=== PATIENT | female | born 1935 | race Caucasian/White ===

== ENCOUNTER 2016-09-10 01:08 | Inpatient (IN) | payer MEDICARE, BC ==
[2016-09-10] MEDS ORDERED: LORazepam 2 MG/ML SYRINGE IV STA (01:57)
[2016-09-10] MEDS ORDERED: IPRATROPIUM 0.5 MG/2.5 ML NEBU INHALATION STA (01:57)
[2016-09-10] MEDS ORDERED: methylPREDNISolone SOD SUCCI 125 MG/2 ML VIAL IV STA (01:57)
--- NOTE | 2016-09-10 02:01 | ED ---
General Adult HPI - General Chief complaint: Shortness of Breath Stated complaint: ISAAC Time Seen by Provider: 09/10/16 01:15 Source: patient, RN notes reviewed, old records reviewed Mode of arrival: wheelchair Limitations: no limitations - History of Present Illness Initial comments: This is an 81-year-old female here for evaluation. This patient is for evaluation of shows a red, severe shortness of breath signs I getting progressively worse, no significant chest pain and symptoms are more of sudden onset, worse with activity. Patient does have severe insignificant medical history relating the heart as well as overall medical comorbidities. Patient did have transfusion today earlier, no recent fevers or travel history no sick contacts no chest pain no cough or congestion - Related Data Home Medications Medication Instructions Recorded Confirmed Levothyroxine Sodium [Synthroid] 50 mcg PO DAILY 09/30/15 09/10/16 Warfarin Sodium [Coumadin] 5 mg PO DAILY 09/30/15 09/10/16 amLODIPine BESYLATE [Amlodipine 5 mg PO DAILY 09/30/15 09/10/16 Besylate] Eye Drops 1 drop BOTH EYES DIRECTED PRN 07/20/16 09/10/16 Furosemide [Lasix] 20 mg PO DAILY 07/20/16 09/10/16 Isosorbide Mononitrate ER [Imdur] 60 mg PO DAILY 07/20/16 09/10/16 Losartan [Cozaar] 50 mg PO DAILY 07/20/16 09/10/16 Potassium Chloride [Klor-Con 10] 10 meq PO DAILY 07/20/16 09/10/16 Lenalidomide [Revlimid] 5 mg PO HS 08/28/16 09/10/16 Allergies Allergy/AdvReac Type Severity Reaction Status Date / Time black pepper Allergy Severe THROAT Verified 09/10/16 01:17 Swelling peanut Allergy Severe THROAT Verified 09/10/16 01:17 Swelling atropine [From ] Allergy Unknown Verified 09/10/16 01:17 Egg Derived Allergy Unknown Verified 09/10/16 01:17 hyoscyamine [From ] Allergy Unknown Verified 09/10/16 01:17 Iodinated Contrast Media - Allergy Swelling Verified 09/10/16 01:17 Oral and [Iodinated Contrast Media - IV Dye] phenobarbital [From ] Allergy Unknown Verified 09/10/16 01:17 scopolamine [From ] Allergy Unknown Verified 09/10/16 01:17 venom-honey bee Allergy Unknown Verified 09/10/16 01:17 [bee venom (honey bee)] aspirin AdvReac Unknown Verified 09/10/16 01:17 [From [place]von Compound-65] belladonna alkaloids AdvReac Unknown Verified 09/10/16 01:17 caffeine AdvReac Unknown Verified 09/10/16 01:17 [From [place] Compound-65] propoxyphene HCl AdvReac Unknown Verified 09/10/16 01:17 [From [place] Compound-65] simvastatin [From Zocor] AdvReac WEAKNESS Verified 09/10/16 01:17 Sulfa (Sulfonamide AdvReac Rash/Hives Verified 09/10/16 01:17 Antibiotics) black pepper Allergy Swelling Uncoded 09/10/16 01:17 BUTTER Allergy Rash/Hives Uncoded 09/10/16 01:17 CHOCOLATE Allergy Itching Uncoded 09/10/16 01:17 SMELT Allergy Itching Uncoded 09/10/16 01:17 Review of Systems ROS Statement: Those systems with pertinent positive or pertinent negative responses have been documented in the HPI. ROS Other: All systems not noted in ROS Statement are negative. Past Medical History Past Medical History: Blood Disorder, Coronary Artery Disease (CAD), Chest Pain / Angina, Deep Vein Thrombosis (DVT), GI Bleed, Hyperlipidemia, Hypertension, Myocardial Infarction (IN), Thyroid Disorder, Vascular Disorder Additional Past Medical History / Comment(s): 3 HEART BLOCKAGES/LEAKY CARDIAC VALVE/HIATAL HERNIA/CHRONIC THROMBOPHLEBITIS/ARTHRITIS. 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 LAP/LENS IMPLANTS BILAT/[place] FILTER Past Anesthesia/Blood Transfusion Reactions: No Reported Reaction Past Psychological History: No Psychological Hx Reported Smoking Status: Never smoker Past Alcohol Use History: None Reported Past Drug Use History: None Reported - Past Family History Father Family Medical History: Coronary Artery Disease (CAD), Myocardial Infarction ([place] ) Mother Family Medical History: COPD, Coronary Artery Disease (CAD), Deep Vein Thrombosis (DVT) Brother(s) Family Medical History: Coronary Artery Disease (CAD), Myocardial Infarction (IN ) Sister(s) Family Medical History: Cancer General Exam Limitations: no limitations General appearance: alert, in no apparent distress, anxious, in distress, obese Head exam: Present: atraumatic, normocephalic, normal inspection Eye exam: Present: normal appearance, PERRL, EOMI. Absent: scleral icterus, conjunctival injection, periorbital swelling ENT exam: Present: normal exam, mucous membranes moist Neck exam: Present: normal inspection. Absent: tenderness, meningismus, lymphadenopathy Respiratory exam: Present: normal lung sounds bilaterally, wheezes, rales, decreased breath sounds, prolonged expiratory. Absent: respiratory distress, rhonchi, stridor Cardiovascular Exam: Present: regular rate, normal rhythm, normal heart sounds. Absent: systolic murmur, diastolic murmur, rubs, gallop, clicks GI/Abdominal exam: Present: soft, normal bowel sounds. Absent: distended, tenderness, guarding, rebound, rigid Extremities exam: Present: normal inspection, full ROM, normal capillary refill. Absent: tenderness, pedal edema, joint swelling, calf tenderness Back exam: Present: normal inspection Neurological exam: Present: alert, oriented X3, CN II-XII intact Psychiatric exam: Present: normal affect, normal mood Skin exam: Present: warm, dry, intact, normal color. Absent: rash Course Vital Signs 09/10/16 09/10/16 09/10/16 01:13 01:30 01:47 Temperature 97.9 F Pulse Rate 45 L 85 Respiratory 20 24 24 Rate Blood Pressure 199/109 129/66 O2 Sat by Pulse 94 L 96 Oximetry 09/10/16 09/10/16 02:09 02:30 Temperature Pulse Rate 90 95 Respiratory Rate Blood Pressure O2 Sat by Pulse Oximetry - Reevaluation(s) Reevaluation #1: 09/10/16 03:38 Patient not in severe rest for distress, no need for noninvasive ventilation at this time, mildly improved with breathing treatment EKG Findings - EKG Comments: EKG Findings:: EKG shows sinus rhythm rate of 90, FL 170, QRS 176, QTC 516 Medical Decision Making - Medical Decision Making 81 female year for evaluation of shortness of breath difficulty in breathing no chest pain. Patient has no fevers. Patient's found to be in pulmonary edema likely due to fluid overload versus transfusion reaction. Patient again denies any chest pain no fevers no cough or congestion, will be admitted for evaluation of breathing and cardiopulmonary status - Lab Data Result diagrams: 09/10/16 01:25 09/10/16 01:25 Lab Results 09/10/16 09/10/16 09/10/16 Range/Units 01:25 01:25 01:25 WBC 3.1 L (3.8-10.6) k/uL RBC 3.11 L (3.80-5.40) m/uL Hgb 10.1 L (11.4-16.0) gm/dL Hct 30.4 L (34.0-46.0) % MCV 97.6 D (80.0-100.0) fL MCH 32.5 (25.0-35.0) pg MCHC 33.2 (31.0-37.0) g/dL RDW 20.3 H (11.5-15.5) % Plt Count 87 L D (150-450) k/uL Neutrophils % (Manual) 45.0 % Band Neutrophils % 3.0 % Lymphocytes % (Manual) 44.0 % Monocytes % (Manual) 5.0 % Eosinophils % (Manual) 3.0 % Neutrophils # (Manual) 1.5 (1.3-7.7) k/uL Lymphocytes # (Manual) 1.4 (1.0-4.8) k/uL Monocytes # (Manual) 0.2 (0-1.0) k/uL Eosinophils # (Manual) 0.1 (0-0.7) k/uL Nucleated RBCs 0 (0-0) /100 WBC Manual Slide Review Performed Polychromasia Present Hypochromasia Slight Poikilocytosis Slight Poikilocytosis (manual Present Anisocytosis Moderate Macrocytosis Moderate PT (9.0-12.0) sec INR (<1.1) APTT (22.0-30.0) sec Sodium 139 (137-145) mmol/L Potassium 4.0 (3.5-5.1) mmol/L Chloride 103 (98-107) mmol/L Carbon Dioxide 24 (22-30) mmol/L Anion Gap 12 mmol/L BUN 21 H (7-17) mg/dL Creatinine 0.90 (0.52-1.04) mg/dL Est GFR (MDRD) Af Amer >60 (>60 ml/min/1.73 sqM) Est GFR (MDRD) Non-Af >60 (>60 ml/min/1.73 sqM) Glucose 127 H (74-99) mg/dL Calcium 10.0 (8.4-10.2) mg/dL Magnesium 2.2 (1.6-2.3) mg/dL Total Bilirubin 1.1 (0.2-1.3) mg/dL AST 18 (14-36) U/L ALT 32 (9-52) U/L Alkaline Phosphatase 90 (38-126) U/L Total Creatine Kinase 38 (30-135) U/L CK-MB (CK-2) 0.9 (0.0-2.4) ng/mL CK-MB (CK-2) Rel Index 2.4 Troponin I 0.019 (0.000-0.034) ng/mL NT-Pro-B Natriuret Pep pg/mL Total Protein 7.3 (6.3-8.2) g/dL Albumin 3.4 L (3.5-5.0) g/dL 09/10/16 09/10/16 Range/Units 01:25 01:25 WBC (3.8-10.6) k/uL RBC (3.80-5.40) m/uL Hgb (11.4-16.0) gm/dL Hct (34.0-46.0) % MCV (80.0-100.0) fL MCH (25.0-35.0) pg MCHC (31.0-37.0) g/dL RDW (11.5-15.5) % Plt Count (150-450) k/uL Neutrophils % (Manual) % Band Neutrophils % % Lymphocytes % (Manual) % Monocytes % (Manual) % Eosinophils % (Manual) % Neutrophils # (Manual) (1.3-7.7) k/uL Lymphocytes # (Manual) (1.0-4.8) k/uL Monocytes # (Manual) (0-1.0) k/uL Eosinophils # (Manual) (0-0.7) k/uL Nucleated RBCs (0-0) /100 WBC Manual Slide Review Polychromasia Hypochromasia Poikilocytosis Poikilocytosis (manual Anisocytosis Macrocytosis PT 19.0 H (9.0-12.0) sec INR 2.0 (<1.1) APTT 22.6 (22.0-30.0) sec Sodium (137-145) mmol/L Potassium (3.5-5.1) mmol/L Chloride (98-107) mmol/L Carbon Dioxide (22-30) mmol/L Anion Gap mmol/L BUN (7-17) mg/dL Creatinine (0.52-1.04) mg/dL Est GFR (MDRD) Af Amer (>60 ml/min/1.73 sqM) Est GFR (MDRD) Non-Af (>60 ml/min/1.73 sqM) Glucose (74-99) mg/dL Calcium (8.4-10.2) mg/dL Magnesium (1.6-2.3) mg/dL Total Bilirubin (0.2-1.3) mg/dL AST (14-36) U/L ALT (9-52) U/L Alkaline Phosphatase (38-126) U/L Total Creatine Kinase (30-135) U/L CK-MB (CK-2) (0.0-2.4) ng/mL CK-MB (CK-2) Rel Index Troponin I (0.000-0.034) ng/mL NT-Pro-B Natriuret Pep 4470 pg/mL Total Protein (6.3-8.2) g/dL Albumin (3.5-5.0) g/dL - Radiology Data Radiology results: report reviewed (Chest x-ray portable does show positive pulmonary edema with pleural effusion), image reviewed Critical Care Time Critical Care Time: Yes Total Critical Care Time: 31 Disposition Clinical Impression: Acute pulmonary edema Disposition: ADMITTED IP TO THIS HOSP Condition: Fair Referrals: Fabian Kay MD [Primary Care Provider] - 1-2 days
[2016-09-10] MEDS: ALBUTEROL NEBULIZED 2.5 MG/3 ML INHALATION STA ×2 (02:10→02:14)
[2016-09-10 02:11] LABS: Anisocytosis Moderate; Aty Lym Flag Slight; CH 32.3; CHCM 33.2; HCT 30.4 % (34.0-46.0); HDW 3.76; HGB 10.1 gm/dL (11.4-16.0); Hypochromasia Slight; MCH 32.5 pg (25.0-35.0); MCHC 33.2 g/dL (31.0-37.0); Macrocytosis Moderate; Mean Platelet Volume 8.7; Poikilocytosis Slight; RBC 3.11 m/uL (3.80-5.40); RDW 20.3 % (11.5-15.5); WBC 3.1 k/uL (3.8-10.6); WBC (Perox) 3.12
[2016-09-10 02:19] LABS: MCV 97.6 fL (80.0-100.0)
--- NOTE | 2016-09-10 02:20 | XR ---
EXAMINATION TYPE: XR chest 1V portable DATE OF EXAM: 09/10/2016 2:04 AM COMPARISON: 02/20/2013 HISTORY: Shortness of breath chest pressure after receiving 2 units of blood today history of VT, tho racic aneurysm sleeve hypertension CAD. TECHNIQUE: Single frontal view of the chest is obtained. Portable study upright 09/10/2016, 2:01: AM [place]. FINDINGS: There is evidence of thoracic aortic aneurysm sleeve in place. The thoracic descending aortic aneurys m measures approximately 6.98 cm in greatest transverse diameter. Mild bilateral pleural effusions and bibasilar lung infiltrates and atelectasis is noted. There is mi ld pulmonary vascular congestion. There is mild cardiomegaly. The osseous structures are intact. IMPRESSION: 1. There is evidence of thoracic aortic aneurysm sleeve in place with thoracic aorta aneurysm measuri ng 6.98 cm in transverse diameter. 2. Mild bilateral pleural effusions and bibasilar lung infiltrates and atelectasis. 3. Cardiomegaly. 4. Mild pulmonary vascular congestion.
[2016-09-10 02:21] LABS: Partial Thromboplastin Time 22.6 sec (22.0-30.0)
[2016-09-10 02:25] LABS: ALT 32 U/L (9-52); AST 18 U/L (14-36); Alkaline Phosphatase 90 U/L (38-126); Anion Gap 12 mmol/L; Blood Urea Nitrogen 21 mg/dL (7-17); Carbon Dioxide 24 mmol/L (22-30); Chloride 103 mmol/L (98-107); Glucose 127 mg/dL (74-99); Magnesium 2.2 mg/dL (1.6-2.3); Non-African American GFR(MDRD) >60 (>60 ml/min/1.73 sqM); Sodium 139 mmol/L (137-145); Total Bilirubin 1.1 mg/dL (0.2-1.3); Total Protein 7.3 g/dL (6.3-8.2)
[2016-09-10 02:30] LABS: Add Differential Manual Differential
[2016-09-10 02:35] LABS: Nucleated Red Blood Cells 0 /100 WBC (0-0); Total Cells Counted 100
[2016-09-10 02:37] LABS: Polychromasia Present
[2016-09-10 02:38] LABS: Manual Review Performed
[2016-09-10 02:46] LABS: Creatine Kinase MB 0.9 ng/mL (0.0-2.4); Troponin I 0.019 ng/mL (0.000-0.034)
[2016-09-10] MEDS ORDERED: SODIUM CHLORIDE 0.9% 1,000 ML IV SCH (03:30)
[2016-09-10] MEDS ORDERED: FUROSEMIDE 10 MG/ML 4 ML VIAL IV STA (03:34)
[2016-09-10 04:17] LABS: Reticulocyte % 1.1 % (0.5-2.0)
[2016-09-10 05:02] VITALS: BMI 37.0
[2016-09-10 06:20] LABS: Appearance,Urine Clear (Clear); Bilirubin,Urine Negative (Negative); Glucose,Urine (UA) Negative (Negative); Ketones,Urine Negative (Negative); Leukocyte Esterase,Urine Negative (Negative); Nitrite,Urine Negative (Negative); Protein,Urine Negative (Negative); Specific Gravity,Urine 1.003 (1.001-1.035); UA Billing (MACRO vs. MICRO) CHEM; Urobilinogen,Urine <2.0 mg/dL (<2.0)
[2016-09-10] MEDS: INSULIN LISPRO (humaLOG) 300 UNIT/3 ML VIAL SQ SCH ×4 (07:40→22:01)
[2016-09-10] MEDS: methylPREDNISolone SOD SUCCI 125 MG/2 ML VIAL IV SCH ×3 (08:07→20:45)
[2016-09-10] MEDS: FUROSEMIDE 10 MG/ML 4 ML VIAL IV SCH ×2 (08:07→22:00)
[2016-09-10] MEDS: IPRATROPIUM-ALBUTEROL 3 ML NEB INHALATION SCH ×4 (08:12→18:51)
[2016-09-10 09:07] LABS: Hemoglobin A1C 5.7 % (4.2-6.1)
[2016-09-10 11:50] LABS: Glucose,Whole Blood 225 mg/dL (75-99)
[2016-09-10] MEDS ORDERED: EYE BOTH EYES PRN (13:08)
--- NOTE | 2016-09-10 16:25 | HP ---
DATE OF ADMISSION: 09/10/2016 Patient is an 81-year-old female who came in with complaints of shortness of breath, orthopnea, PND that have been going on for 2 weeks and getting worse for the last 2 weeks. Patient is not known to have congestive heart failure, as per the patient. Patient apparently received a blood transfusion, after which her symptoms got worse. Patient's BNP is elevated to 4470 with pulmonary edema on the chest x-ray with elevated JVD and a possibility of S3. I do not have an echocardiogram available. Patient is admitted for treatment of congestive heart failure. Patient was started on IV Lasix, with improvement in her symptoms and good diuresis. Patient follows with Dr. Millan as an outpatient for cardiac issues and Dr. Kay as a primary care physician. Patient apparently was diagnosed with myelodysplastic syndrome secondary to ( ) and patient is on lenalidomide, or Revlimid, daily for mild myelodysplastic syndrome related to ( ) . Home medications include: 1. Levothyroxine. 2. Coumadin. 3. Amlodipine. 4. Lasix. 5. Isosorbide nitrate. 6. Losartan. 7. Potassium chloride. 8. Lenalidomide, as mentioned above. ALLERGIES: 1. BLACK PEPPER. 2. PEANUTS. 3. ATROPINE. 4. MULTIPLE OTHER ALLERGIES: PLEASE REFER TO THE CHART FOR THAT. REVIEW OF SYSTEMS: CONSTITUTIONAL: No fever, no malaise, no fatigue. HEENT: No recent visual problems or hearing problems. Denied any sore throat. CARDIOVASCULAR: As described in HPI. PULMONARY: As described in HPI. GASTROINTESTINAL: No diarrhea, no nausea, no vomiting, no abdominal pain. Normoactive bowel sounds. NEUROLOGICAL: No headaches, no weakness, no numbness. HEMATOLOGICAL: Denies any bleeding or petechiae. GENITOURINARY: Denies any burning micturition, frequency, or urgency. MUSCULOSKELETAL/RHEUMATOLOGICAL: Denies any joint pain, swelling, or any muscle pain. ENDOCRINE: Denies any polyuria or polydipsia. The rest of the 14 point review of systems is negative. Past medical history is significant for: 1. Myelodysplastic syndrome and ( ). 2. Coronary artery disease. 3. GI bleed in the past. 4. DVT in the past. 5. Hypertension. 6. Myocardial infarction in the past. 7. Hypothyroidism. 8. Patient has 3 leaky valves, as per the patient. 9. Appendectomy. 10. Cholecystectomy. 11. Cardiac catheterization. 12. Hysterectomy. 13. [place] filter placement. SOCIAL HISTORY: Denied any smoking, alcohol abuse or any drug abuse. FAMILY HISTORY: Father had coronary artery disease and myocardial infarction. Mother had COPD, coronary artery disease, DVT. Brother had coronary artery disease, myocardial infarction. Sister had cancer. PHYSICAL EXAMINATION: VITAL SIGNS: Temperature 97.5, pulse of 78 now; pulse was 102 yesterday. Respiratory rate of 18. Blood pressure is 153/72. Saturating at 95% on 2 L of oxygen by nasal cannula. GENERAL: The patient is alert and oriented x3, not in any acute distress. Well developed, well nourished. HEENT: Pupils are round and equally reacting to light. EOMI. No scleral icterus. No conjunctival pallor. Normocephalic, atraumatic. No pharyngeal erythema. No thyromegaly. CARDIOVASCULAR: As mentioned above. Elevated JVD and possibility of S3. I did not appreciate any other new murmurs or rubs. I did not appreciate any S4, either. PULMONARY: Chest is clear to auscultation, no wheezing or crackles. ABDOMEN: Soft, nontender, nondistended, normoactive bowel sounds. No palpable organomegaly. MUSCULOSKELETAL: No joint swelling or deformity. EXTREMITIES: No cyanosis, clubbing, or pedal edema. NEUROLOGICAL: Gross neurological examination did not reveal any focal deficits. SKIN: No rashes. LABORATORY DATA: CBC, CMP are abnormal for low WBC count of 13,100, hemoglobin of 10.1 and low platelet count of 87,000 secondary to myelodysplastic syndrome. ASSESSMENT AND PLAN: 1. Congestive heart failure; unknown systolic function. Echocardiogram will be obtained. Patient is on Lasix, which will be continued. Patient has hypoxic respiratory failure secondary to CHF exacerbation. Possibility of CHF exacerbation and management as mentioned above. Will obtain an echocardiogram. 2. Pancytopenia secondary to myelodysplastic syndrome. Continue with Revlimid or lenalidomide and followup with Dr. Coleman as an outpatient. 3. History of coronary artery disease. Continue with her home medications. 4. Deep venous thrombosis, not on anticoagulation at this point of time. 5. Hyperlipidemia. 6. Hypothyroidism. 7. Myocardial infarction in the past. For above-mentioned chronic medical problems, I will go ahead and continue her home medications. Patient's primary care physician is Dr. Kay.
[2016-09-10] MEDS ORDERED: METOPROLOL SUCCINATE (ER) 100 MG TAB.ER.24H PO STA (16:50)
--- NOTE | 2016-09-10 16:52 | P.CRDCN ---
History of Present Illness Consult date: 09/10/16 Requesting physician: Calvin Iqbal Consult reason: shortness of breath Chief complaint: Shortness of breath History of present illness: This is a pleasant 81-year-old female who follows regularly with Dr. Millan in the office. 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 Most recent echocardiogram with Doppler study was performed in the office which revealed an ejection fraction of 50% with mild MR and mild TR this was performed in June 2016. Recently patient was diagnosed with myelodysplasia, she has had a 21 duration of chemotherapy and is currently on her one week off of chemo. Patient has anemia from her myelodysplasia, she had required a one unit of blood transfusion, and day before yesterday received 2 units. Following that patient apparently became quite short of breath and was admitted to the hospital for that reason. EKG on admission here showed a normal sinus rhythm with a left bundle-branch block pattern with PACs. Chest x-ray revealed evidence of a thoracic aortic aneurysm sleeve in place with thoracic aortic aneurysm measuring 6.98 cm in diameter, mild bilateral pleural effusions and bibasilar lung infiltrates and/or atelectasis. Mild pulmonary vascular congestion. Lab data reviewed, WBC 3.1, hemoglobin 10.1, platelet count 87. INR 2.0. Potassium 4.0, BUN 21, creatinine 0.9. BNP level 4470, troponin 0.019. Patient was given a one-time dose of 40 mg IV Lasix in the emergency room and started on IV Lasix twice a day. She has been diuresing well on the IV Lasix. At the time of my examination, patient had just been up to the restroom, appeared quite short of breath, she states that with minimal exertion she gets very short of breath. Heart rate currently 130 range. Past Medical History Past Medical History: Blood Disorder, Coronary Artery Disease (CAD), Chest Pain / Angina, Deep Vein Thrombosis (DVT), GI Bleed, Hyperlipidemia, Hypertension, Myocardial Infarction ([place]), Thyroid Disorder, Vascular Disorder Additional Past Medical History / Comment(s): 3 HEART BLOCKAGES/LEAKY CARDIAC VALVE/HIATAL HERNIA/CHRONIC THROMBOPHLEBITIS/ARTHRITIS. 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 LAP/LENS IMPLANTS BILAT/ALMAS FILTER Past Anesthesia/Blood Transfusion Reactions: No Reported Reaction Past Psychological History: No Psychological Hx Reported Smoking Status: Never smoker Past Alcohol Use History: None Reported Past Drug Use History: None Reported - Past Family History Father Family Medical History: Coronary Artery Disease (CAD), Myocardial Infarction ([place] ) Mother Family Medical History: COPD, Coronary Artery Disease (CAD), Deep Vein Thrombosis (DVT) Brother(s) Family Medical History: Coronary Artery Disease (CAD), Myocardial Infarction ([place] ) Sister(s) Family Medical History: Cancer Medications and Allergies Home Medications Medication Instructions Recorded Confirmed Type amLODIPine BESYLATE [Amlodipine 5 mg PO DAILY 09/30/15 09/10/16 History Besylate] Furosemide [Lasix] 20 mg PO DAILY 07/20/16 09/10/16 History Isosorbide Mononitrate ER [Imdur] 60 mg PO DAILY 07/20/16 09/10/16 History Losartan [Cozaar] 50 mg PO DAILY 07/20/16 09/10/16 History Potassium Chloride [Klor-Con 10] 10 meq PO DAILY 07/20/16 09/10/16 History Lenalidomide [Revlimid] 10 mg PO HS 08/28/16 09/10/16 History Levothyroxine Sodium [Synthroid] 100 mcg PO DAILY 09/10/16 09/10/16 History Metoprolol Succinate [Toprol XL] 100 mg PO DAILY 09/10/16 09/10/16 History Allergies Allergy/AdvReac Type Severity Reaction Status Date / Time black pepper Allergy Severe THROAT Verified 09/10/16 01:17 Swelling peanut Allergy Severe THROAT Verified 09/10/16 01:17 Swelling atropine [From ] Allergy Unknown Verified 09/10/16 01:17 Egg Derived Allergy Unknown Verified 09/10/16 01:17 hyoscyamine [From ] Allergy Unknown Verified 09/10/16 01:17 Iodinated Contrast Media - Allergy Swelling Verified 09/10/16 01:17 Oral and [Iodinated Contrast Media - IV Dye] phenobarbital [From ] Allergy Unknown Verified 09/10/16 01:17 scopolamine [From ] Allergy Unknown Verified 09/10/16 01:17 venom-honey bee Allergy Unknown Verified 09/10/16 01:17 [bee venom (honey bee)] aspirin AdvReac Unknown Verified 09/10/16 01:17 [From Darvon Compound-65] belladonna alkaloids AdvReac Unknown Verified 09/10/16 01:17 caffeine AdvReac Unknown Verified 09/10/16 01:17 [From Darvon Compound-65] propoxyphene HCl AdvReac Unknown Verified 09/10/16 01:17 [From Darvon Compound-65] simvastatin [From Zocor] AdvReac WEAKNESS Verified 09/10/16 01:17 Sulfa (Sulfonamide AdvReac Rash/Hives Verified 09/10/16 01:17 Antibiotics) black pepper Allergy Swelling Uncoded 09/10/16 01:17 CHOCOLATE Allergy Itching Uncoded 09/10/16 01:17 SMELT Allergy Itching Uncoded 09/10/16 01:17 Physical Exam Vitals: Vital Signs Temp Pulse Pulse Resp BP BP Pulse Ox 09/10/16 15:28 97.3 F L 69 18 175/70 96 09/10/16 15:07 78 09/10/16 14:56 76 09/10/16 11:45 97.5 F L 72 18 153/72 95 09/10/16 11:27 96 09/10/16 11:18 96 09/10/16 08:22 100 09/10/16 08:12 96.9 F L 108 H 95 20 136/67 96 09/10/16 04:00 97.5 F L 112 H 18 179/77 96 09/10/16 03:56 97.5 F L 112 H 18 179/77 96 09/10/16 03:47 102 H 20 106/51 96 Intake and Output 09/10/16 09/10/16 09/10/16 06:59 14:59 22:59 Intake Total 380 Output Total 600 1500 Balance -600 -1120 Intake: Oral 380 Output: Urine 600 1500 Other: Voiding Method Toilet Toilet Toilet Weight 86.2 kg PHYSICAL EXAMINATION: HEENT: Head is atraumatic, normocephalic. Pupils equal, round. Neck is supple. There is elevated jugular venous pressure. HEART EXAMINATION: Heart S1 and S2 irregular irregular systolic ejection murmur is heard. CHEST EXAMINATION: Lungs reveal diminished air entry to bilateral bases. ABDOMEN: Soft, nontender. Bowel sounds are heard. No organomegaly noted. EXTREMITIES: 2+ peripheral pulses with trace evidence of peripheral edema and no calf tenderness noted. Right leg is larger than the left. NEUROLOGIC patient is awake, alert and oriented -3. . Results 09/10/16 01:25 09/10/16 01:25 Current Medications Generic Name Dose Route Start Last Admin Trade Name Freq PRN Reason Stop Dose Admin Albuterol/Ipratropium 3 ml 09/10/16 08:00 09/10/16 14:56 Duoneb 0.5 Mg-3 Mg/3 Ml Soln INHALATION 3 ml RT-QID LAURY Administration Furosemide 40 mg 09/10/16 09:00 09/10/16 08:07 Lasix IV 40 mg Q12HR LAURY Administration Sodium Chloride 1,000 mls @ 20 mls/hr 09/10/16 03:30 09/10/16 04:53 Saline 0.9% IV Not Given .Q24H LAURY Insulin Human Lispro 0 unit 09/10/16 07:30 09/10/16 12:17 Humalog SQ 7 unit ACHS LAURY Administration Protocol Isosorbide Mononitrate 60 mg 09/11/16 09:00 Imdur PO DAILY LAURY Levothyroxine Sodium 100 mcg 09/11/16 06:30 Synthroid PO 0630 LAURY Losartan Potassium 50 mg 09/11/16 09:00 Cozaar PO DAILY LAURY Methylprednisolone Sodium Succinate 60 mg 09/10/16 08:00 09/10/16 15:28 Solu-Medrol IV 60 mg Q6H LAURY Administration Metoprolol Succinate 100 mg 09/11/16 09:00 Toprol Xl PO DAILY LAURY Intake and Output 09/10/16 09/10/16 09/10/16 06:59 14:59 22:59 Intake Total 380 Output Total 600 1500 Balance -600 -1120 Intake: Oral 380 Output: Urine 600 1500 Other: Voiding Method Toilet Toilet Toilet Weight 86.2 kg Assessment and Plan Plan: Assessment and plan #1 congestive cardiac failure, most recent echo revealed a normal left ventricular systolic function, likely diastolic in nature, could be secondary to recent blood transfusions. We will repeat an echocardiogram with Doppler study. #2 hypertension #3 hyperlipidemia #4 peripheral vascular disease #5 family history of premature coronary artery disease #6 coronary artery disease with moderate triple-vessel disease as documented by heart catheterization in 2013 #7 recent diagnosis of myelodysplastic disorder, recently received a 21 day duration of chemotherapy #8 leukopenia and thrombocytopenia secondary to her myelodysplastic disorder #9 anemia, patient just recently received 3 units of packed red blood cells, yesterday she received 2 units. #10 thoracic aortic aneurysm status post endograft repair #11 acute on chronic renal disease. Plan We'll repeat an echocardiogram with Doppler study. We will also resume the patient's metoprolol tartrate and losartan which she states at home. Continue IV Lasix. We will also repeat an EKG to determine exact underlying rhythm, further recommendations to follow. DNP note has been reviewed, I agree with a documented findings and plan of care. Patient was seen and examined.
[2016-09-10 16:53] LABS: Glucose,Whole Blood 191 mg/dL (75-99)
[2016-09-10 17:29] LABS: Potassium 3.5 mmol/L (3.5-5.1)
[2016-09-10] MEDS ORDERED: LENALIDOMIDE 10 MG PO SCH (21:00)
[2016-09-10 21:28] LABS: Glucose,Whole Blood 236 mg/dL (75-99)
[2016-09-11] MEDS: methylPREDNISolone SOD SUCCI 125 MG/2 ML VIAL IV SCH ×4 (02:53→20:42)
[2016-09-11 06:15] LABS: Glucose,Whole Blood 168 mg/dL (75-99)
[2016-09-11] MEDS: INSULIN LISPRO (humaLOG) 300 UNIT/3 ML VIAL SQ SCH ×4 (06:55→20:38)
[2016-09-11] MEDS: LEVOTHYROXINE 100 MCG TAB PO SCH (06:55)
[2016-09-11] MEDS: METOPROLOL SUCCINATE (ER) 100 MG TAB.ER.24H PO SCH (08:37)
[2016-09-11] MEDS: LOSARTAN 50 MG TAB PO SCH (08:37)
[2016-09-11] MEDS: ISOSORBIDE MONONITRATE ER 60 MG TAB.ER.24H PO SCH (08:37)
[2016-09-11] MEDS: FUROSEMIDE 10 MG/ML 4 ML VIAL IV SCH ×2 (08:37→20:44)
[2016-09-11] MEDS: IPRATROPIUM-ALBUTEROL 3 ML NEB INHALATION SCH ×4 (08:59→20:18)
--- NOTE | 2016-09-11 10:40 | ECHOF ---
Referral Reason:CHF MEASUREMENTS -------- HEIGHT: 152.4 cm WEIGHT: 86.2 kg BP: IVSd: 1.5 cm (0.6 - 1.1) LVIDd: 3.9 cm (3.9 - 5.3) LVPWd: 1.4 cm (0.6 - 1.1) IVSs: 1.7 cm LVIDs: 2.6 cm LVPWs: 1.7 cm LA Diam: 3.6 cm (2.7 - 3.8) Ao Diam: 2.5 cm (2.0 - 3.7) AV Cusp: 1.6 cm (1.5 - 2.6) LA Diam: 5.1 cm (2.7 - 3.8) MV EXCURSION: 15.618 mm (> 18.000) MV EF SLOPE: 85 mm/s (70 - 150) EPSS: 0.4 cm MV E Delon: 1.48 m/s MV DecT: 236 ms MV A Delon: 0.47 m/s MV E/A Ratio: 3.12 RAP: 5.00 mmHg RVSP: 47.47 mmHg FINDINGS -------- Undetermined rhythm. This was a techncally difficult study with suboptimal views, , Definity utilized for enhancement of images. There is moderate concentric left ventricular hypertrophy. Overall left ventricular systolic function is mild-moderately impaired with, an EF between 40 - 45 %. Anterseptal Hypokinesis Septal Hypokinesis The right ventricle is normal in size. The left atrium is moderately dilated. The right atrial size is normal. There is mild aortic valve sclerosis. There is no evidence of aortic regurgitation. Mild mitral annular calcification present. Mild mitral regurgitation is present. Mild tricuspid regurgitation present. There is mild to moderate pulmonary hypertension. The right ventricular systolic pressure, as measured by Doppler, is 47.47mmHg. There is no pulmonic regurgitation present. The aortic root size is normal. There is no pericardial effusion. CONCLUSIONS -------- 1. There is moderate concentric left ventricular hypertrophy. 2. There is mild to moderate pulmonary hypertension. 3. The right ventricular systolic pressure, as measured by Doppler, is 47.47mmHg. 4. Overall left ventricular systolic function is mild-moderately impaired with, an EF between 40 - 45 %. 5. Anterseptal Hypokinesis 6. Septal Hypokinesis 7. The left atrium is moderately dilated. 8. There is mild aortic valve sclerosis. 9. Mild mitral annular calcification present. 10. Mild mitral regurgitation is present. 11. Mild tricuspid regurgitation present. FIGURINE MAKER: Luli Rose RDCS
[2016-09-11 11:43] LABS: Glucose,Whole Blood 150 mg/dL (75-99)
[2016-09-11 12:39] LABS: Calcium 10.1 mg/dL (8.4-10.2); Potassium 3.6 mmol/L (3.5-5.1)
--- NOTE | 2016-09-11 14:57 | P.PN ---
Subjective Principal diagnosis: CHF This is a pleasant 81-year-old female who follows regularly with Dr. Millan in the office. 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 Most recent echocardiogram with Doppler study was performed in the office which revealed an ejection fraction of 50% with mild MR and mild TR this was performed in June 2016. Recently patient was diagnosed with myelodysplasia, she has had a 21 duration of chemotherapy and is currently on her one week off of chemo. Patient has anemia from her myelodysplasia, she had required a one unit of blood transfusion, and day before yesterday received 2 units. Following that patient apparently became quite short of breath and was admitted to the hospital for that reason. EKG on admission here showed a normal sinus rhythm with a left bundle-branch block pattern with PACs. Chest x-ray revealed evidence of a thoracic aortic aneurysm sleeve in place with thoracic aortic aneurysm measuring 6.98 cm in diameter, mild bilateral pleural effusions and bibasilar lung infiltrates and/or atelectasis. Mild pulmonary vascular congestion. Patient was initiated on IV Lasix and has been diuresing well. Her weight today is down 1 kg. Creatinine 1.1. Objective - Vital Signs Vital signs: Vital Signs Temp 98.0 F 09/11/16 12:00 Pulse 96 09/11/16 13:12 Resp 18 09/11/16 12:00 BP 124/68 09/11/16 12:00 Pulse Ox 97 09/11/16 12:00 Intake & Output 09/10/16 09/11/16 09/11/16 18:59 06:59 18:59 Intake Total 620 180 Output Total 1500 250 650 Balance -880 -250 -470 Weight 85.8 kg Intake: IV 120 Sodium Chloride 0.9% 1, 120 000 ml @ 20 mls/hr IV . Q24H LAURY Rx#:[id number] Oral 500 180 Output: Urine 1500 250 650 Other: Voiding Method Toilet Toilet Toilet # Voids 1 - Exam PHYSICAL EXAMINATION: HEENT: Head is atraumatic, normocephalic. Pupils equal, round. Neck is supple. There is elevated jugular venous pressure. HEART EXAMINATION: Heart S1 and S2 irregular irregular systolic ejection murmur is heard. CHEST EXAMINATION: Lungs reveal diminished air entry to bilateral bases. ABDOMEN: Soft, nontender. Bowel sounds are heard. No organomegaly noted. EXTREMITIES: 2+ peripheral pulses with trace evidence of peripheral edema and no calf tenderness noted. Right leg is larger than the left. NEUROLOGIC patient is awake, alert and oriented -3. - Labs CBC & Chem 7: 09/10/16 01:25 09/11/16 11:57 Labs: Abnormal Lab Results - Last 24 Hours (Table) 09/10/16 09/10/16 09/10/16 Range/Units 16:51 16:58 21:22 BUN (7-17) mg/dL Creatinine (0.52-1.04) mg/dL Glucose (74-99) mg/dL POC Glucose (mg/dL) 191 H 236 H (75-99) mg/dL TSH 0.379 L (0.465-4.680) mIU/L 09/11/16 09/11/16 09/11/16 Range/Units 06:11 11:42 11:57 BUN 35 H (7-17) mg/dL Creatinine 1.10 H (0.52-1.04) mg/dL Glucose 159 H (74-99) mg/dL POC Glucose (mg/dL) 168 H 150 H (75-99) mg/dL TSH (0.465-4.680) mIU/L Microbiology - Last 24 Hours (Table) 09/10/16 06:08 Urine Culture - Final Urine,Voided Assessment and Plan Plan: Assessment and plan #1 congestive cardiac failure, most recent echo revealed a normal left ventricular systolic function, likely diastolic in nature, could be secondary to recent blood transfusions. We will repeat an echocardiogram with Doppler study. #2 hypertension #3 hyperlipidemia #4 peripheral vascular disease #5 family history of premature coronary artery disease #6 coronary artery disease with moderate triple-vessel disease as documented by heart catheterization in 2012 #7 recent diagnosis of myelodysplastic disorder, recently received a 21 day duration of chemotherapy #8 leukopenia and thrombocytopenia secondary to her myelodysplastic disorder #9 anemia, patient just recently received 3 units of packed red blood cells, yesterday she received 2 units. #10 thoracic aortic aneurysm status post endograft repair #11 acute on chronic renal disease. Plan Repeat echocardiogram with Doppler study revealed an ejection fraction of 40-45 % anterior septal hypokinesia. We will continue IV Lasix for another 24 hours, check lytes BUN and creatinine in the morning. DNP note has been reviewed, I agree with a documented findings and plan of care. Patient was seen and examined.
--- NOTE | 2016-09-11 17:03 | PN ---
81-year-old female admitted with congestive heart failure exacerbation. Patient is on IV Lasix with mild worsening of BUN and creatinine. Patient continues to be short of breath because of which we will continue with the Lasix at this point of time. Patient has depressed ejection fraction of 40 to 45% on recent echocardiogram. REVIEW OF SYSTEMS: CARDIOVASCULAR: No chest pain, no orthopnea, no PND, no palpitations. PULMONARY: As described in HPI. GASTROINTESTINAL: No diarrhea, nausea or vomiting. No abdominal pain. Normoactive bowel sounds. NEUROLOGIC: No headaches, no weakness, no numbness. Medications were reviewed and medication changes as mentioned in the interval history. PHYSICAL EXAMINATION: VITAL SIGNS: Temperature 98.0, pulse of 96, respiratory rate 18, blood pressure is 135/58, saturating at 99% on 2-L O2 nasal cannula. GENERAL: The patient is alert and oriented x3, not in any acute distress. Well developed, well nourished. HEENT: Pupils are round and equally reacting to light. EOMI. No scleral icterus. No conjunctival pallor. Normocephalic, atraumatic. No pharyngeal erythema. No thyromegaly. CARDIOVASCULAR: JVD did improve. I am not sure about S3. No rubs or gallops. I did not appreciate any murmurs. Patient does have low 1+ pitting pedal edema. PULMONARY: Chest is clear to auscultation, no wheezing or crackles. ABDOMEN: Soft, nontender, nondistended, normoactive bowel sounds. No palpable organomegaly. MUSCULOSKELETAL: No joint swelling or deformity. EXTREMITIES: No cyanosis, clubbing. 1+ pitting pedal edema. NEUROLOGICAL: Gross neurological examination did not reveal any focal deficits. SKIN: No rashes. LABORATORY DATA: CBC, CMP are abnormal for elevated BUN and creatinine as mentioned above 35 and 1.10. ASSESSMENT AND PLAN: 1. Congestive heart failure, possible chronic systolic dysfunction with acute exacerbation. 2. Pancytopenia secondary to myelodysplastic syndrome and patient completed therapy with lenalidomide. Patient will follow up with Dr. Coleman as an outpatient for that. 3. History of coronary artery disease. 4. Deep venous thrombosis not on anticoagulation at this point of time. 5. Hyperlipidemia. 6. Hypothyroidism. 7. Myocardial infarction in the past. 8. Deep venous thrombosis in the history. The patient presently does not have any deep venous thrombosis. 9. Patient has elevated TSH, normal T4, probably sick euthyroid syndrome. TSH needs to be repeated again. 10. 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
[2016-09-11 17:06] LABS: Glucose,Whole Blood 168 mg/dL (75-99)
[2016-09-11 20:36] LABS: Glucose,Whole Blood 198 mg/dL (75-99)
[2016-09-12] MEDS: methylPREDNISolone SOD SUCCI 125 MG/2 ML VIAL IV SCH ×4 (02:18→20:44)
[2016-09-12 06:19] LABS: Glucose,Whole Blood 170 mg/dL (75-99)
[2016-09-12 06:23] LABS: Anion Gap 10 mmol/L; Blood Urea Nitrogen 39 mg/dL (7-17); Carbon Dioxide 31 mmol/L (22-30); Chloride 101 mmol/L (98-107); Glucose 169 mg/dL (74-99); Non-African American GFR(MDRD) 50 (>60 ml/min/1.73 sqM); Potassium 3.9 mmol/L (3.5-5.1); Sodium 142 mmol/L (137-145)
[2016-09-12] MEDS: INSULIN LISPRO (humaLOG) 300 UNIT/3 ML VIAL SQ SCH ×4 (06:27→20:48)
[2016-09-12] MEDS: LEVOTHYROXINE 100 MCG TAB PO SCH (06:27)
[2016-09-12] MEDS: IPRATROPIUM-ALBUTEROL 3 ML NEB INHALATION SCH ×4 (07:52→20:09)
[2016-09-12] MEDS: LOSARTAN 50 MG TAB PO SCH (08:55)
[2016-09-12] MEDS: ISOSORBIDE MONONITRATE ER 60 MG TAB.ER.24H PO SCH (08:55)
[2016-09-12] MEDS: FUROSEMIDE 10 MG/ML 4 ML VIAL IV SCH ×2 (08:55→20:47)
[2016-09-12] MEDS: METOPROLOL SUCCINATE (ER) 100 MG TAB.ER.24H PO SCH (08:55)
--- NOTE | 2016-09-12 11:58 | P.PN ---
Subjective Principal diagnosis: CHF This is a pleasant 81-year-old female who follows regularly with Dr. Millan in the office. 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 Most recent echocardiogram with Doppler study was performed in the office which revealed an ejection fraction of 50% with mild MR and mild TR this was performed in June 2016. Recently patient was diagnosed with myelodysplasia, she has had a 21 duration of chemotherapy and is currently on her one week off of chemo. Patient has anemia from her myelodysplasia, she had required a one unit of blood transfusion, and day before yesterday received 2 units. Following that patient apparently became quite short of breath and was admitted to the hospital for that reason. EKG on admission here showed a normal sinus rhythm with a left bundle-branch block pattern with PACs. Chest x-ray revealed evidence of a thoracic aortic aneurysm sleeve in place with thoracic aortic aneurysm measuring 6.98 cm in diameter, mild bilateral pleural effusions and bibasilar lung infiltrates and/or atelectasis. Mild pulmonary vascular congestion. Patient was initiated on IV Lasix and has been diuresing well. Her weight today is down 1 kg. Creatinine 1.05. We will continue IV Lasix. Objective - Vital Signs Vital signs: Vital Signs Temp 96.7 F L 09/12/16 08:47 Pulse 90 09/12/16 11:40 Resp 12 09/12/16 11:43 BP 152/65 09/12/16 11:40 Pulse Ox 98 09/12/16 11:40 Intake & Output 09/11/16 09/12/16 09/12/16 18:59 06:59 18:59 Intake Total 380 Output Total 950 Balance -570 Weight 84 kg Intake: Oral 380 Output: Urine 950 Other: Voiding Method Toilet Toilet Toilet # Voids 0 - Exam PHYSICAL EXAMINATION: HEENT: Head is atraumatic, normocephalic. Pupils equal, round. Neck is supple. There is elevated jugular venous pressure. HEART EXAMINATION: Heart S1 and S2 irregular irregular systolic ejection murmur is heard. CHEST EXAMINATION: Lungs reveal diminished air entry to bilateral bases. ABDOMEN: Soft, nontender. Bowel sounds are heard. No organomegaly noted. EXTREMITIES: 2+ peripheral pulses with trace evidence of peripheral edema and no calf tenderness noted. Right leg is larger than the left. NEUROLOGIC patient is awake, alert and oriented -3. - Labs CBC & Chem 7: 09/10/16 01:25 09/12/16 05:35 Labs: Abnormal Lab Results - Last 24 Hours (Table) 09/11/16 09/11/16 09/11/16 Range/Units 11:57 17:04 20:32 Carbon Dioxide (22-30) mmol/L BUN 35 H (7-17) mg/dL Creatinine 1.10 H (0.52-1.04) mg/dL Glucose 159 H (74-99) mg/dL POC Glucose (mg/dL) 168 H 198 H (75-99) mg/dL 09/12/16 09/12/16 Range/Units 05:35 06:12 Carbon Dioxide 31 H (22-30) mmol/L BUN 39 H (7-17) mg/dL Creatinine 1.05 H (0.52-1.04) mg/dL Glucose 169 H (74-99) mg/dL POC Glucose (mg/dL) 170 H (75-99) mg/dL Microbiology - Last 24 Hours (Table) 09/10/16 06:08 Urine Culture - Final Urine,Voided Assessment and Plan Plan: Assessment and plan #1 congestive cardiac failure, most recent echo revealed a normal left ventricular systolic function, likely diastolic in nature, could be secondary to recent blood transfusions. Echo revealed an ejection fraction of 40-45%. #2 hypertension #3 hyperlipidemia #4 peripheral vascular disease #5 family history of premature coronary artery disease #6 coronary artery disease with moderate triple-vessel disease as documented by heart catheterization in 2012 #7 recent diagnosis of myelodysplastic disorder, recently received a 21 day duration of chemotherapy #8 leukopenia and thrombocytopenia secondary to her myelodysplastic disorder #9 anemia, patient just recently received 3 units of packed red blood cells, yesterday she received 2 units. #10 thoracic aortic aneurysm status post endograft repair #11 acute on chronic renal disease. Plan We'll continue the IV Lasix for another 24 hours. Check lytes BUN and creatinine along with daily weights in the morning. DNP note has been reviewed, I agree with a documented findings and plan of care. Patient was seen and examined.
[2016-09-12 12:03] LABS: Glucose,Whole Blood 145 mg/dL (75-99)
[2016-09-12] MEDS ORDERED: POLYETHYLENE GLYCOL 3350 17 GM POWD.PACK PO PRN (12:22)
--- NOTE | 2016-09-12 12:49 | XR ---
EXAMINATION TYPE: XR chest 1V DATE OF EXAM: 09/12/2016 12:39 PM CLINICAL HISTORY: Difficulty breathing progress study. CHF and pulmonary edema. TECHNIQUE: Single AP portable upright view of the chest is obtained. COMPARISON: Chest x-ray from 2 days earlier FINDINGS: Cardiac silhouette size is stable and upper limits of normal with aneurysmal thoracic aort a that has metallic stent graft. There is persistent bibasilar opacity felt to reflect atelectasis an d/or infiltrate and probable small bilateral pleural effusions. Upper lungs are clear without pneumot horax. Osseous structures are intact. IMPRESSION: Overall stable findings, patchy bibasilar atelectasis and/or infiltrate with small bila teral pleural effusions felt present. No new infiltrate is seen.
--- NOTE | 2016-09-12 13:36 | PN ---
Patient is an 81-year-old admitted with congestive heart failure exacerbation. The patient has minimally depressed ejection fraction. Patient may have a component of diastolic dysfunction as well. Patient did not have any significant clinical improvement since yesterday. Patient still complaining of some shortness of breath, although patient will not require any oxygen at this point of time. I will instruct the nursing staff to discontinued oxygen. Patient is saturating at 98% on 2 liters of O2 by nasal cannula. REVIEW OF SYSTEMS: CARDIOVASCULAR: No chest pain, no orthopnea, no PND, no palpitations. PULMONARY: Denied any shortness of breath. No cough or hemoptysis. GASTROINTESTINAL: No diarrhea, nausea or vomiting. No abdominal pain. Normoactive bowel sounds. NEUROLOGIC: No headaches, no weakness, no numbness. Medications were reviewed. PHYSICAL EXAMINATION: VITAL SIGNS: Temperature 96.7, pulse of 88, respiratory rate of 12, blood pressure is 152/65, saturating at 98% on 2-L of O2 by nasal cannula. GENERAL: The patient is alert and oriented x3, not in any acute distress. Well developed, well nourished. HEENT: Pupils are round and equally reacting to light. EOMI. No scleral icterus. No conjunctival pallor. Normocephalic, atraumatic. No pharyngeal erythema. No thyromegaly. CARDIOVASCULAR: S1 and S2 present. Irregularly rate and rhythm. Patient is tachycardia. Patient's JVD appears to have improved significantly for me. CARDIOVASCULAR: S1 and S2 present. No murmurs, rubs, or gallops. PULMONARY: Chest is clear to auscultation, no wheezing or crackles. ABDOMEN: Soft, nontender, nondistended, normoactive bowel sounds. No palpable organomegaly. MUSCULOSKELETAL: No joint swelling or deformity. EXTREMITIES: There is minimal pedal edema. NEUROLOGICAL: Gross neurological examination did not reveal any focal deficits. SKIN: No rashes. LABORATORY DATA: CBC and CMP are abnormal for elevated BUN and creatinine of 39 and 1.05 down from 21 and 0.9 which need to be closely monitored with strict I's and O's. Chest x-ray remained stable without any significant change in pulmonary edema. ASSESSMENT AND PLAN: 1. Congestive heart failure with chronic diastolic dysfunction with acute exacerbation. 2. Pancytopenia secondary to myelodysplastic syndrome is on lenalidomide regimen. 3. History of coronary artery disease. 4. Deep venous thrombosis, not on anticoagulation at this point of time. 5. Hyperlipidemia. 6. Hypothyroidism. 7. Myocardial infarction. 8. Patient has mildly low TSH and normal T4, probably sick euthyroid syndrome. 9. 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 PLAN: As mentioned above.
[2016-09-12 17:19] LABS: Glucose,Whole Blood 148 mg/dL (75-99)
[2016-09-12 20:59] LABS: Glucose,Whole Blood 175 mg/dL (75-99)
[2016-09-13] MEDS: methylPREDNISolone SOD SUCCI 125 MG/2 ML VIAL IV SCH ×2 (02:11→08:25)
[2016-09-13] MEDS: INSULIN LISPRO (humaLOG) 300 UNIT/3 ML VIAL SQ SCH ×4 (06:23→22:38)
[2016-09-13] MEDS: LEVOTHYROXINE 100 MCG TAB PO SCH (06:25)
[2016-09-13 06:38] LABS: Glucose,Whole Blood 163 mg/dL (75-99)
[2016-09-13 07:00] LABS: Anion Gap 12 mmol/L; Blood Urea Nitrogen 45 mg/dL (7-17); Calcium 9.9 mg/dL (8.4-10.2); Carbon Dioxide 32 mmol/L (22-30); Chloride 99 mmol/L (98-107); Glucose 163 mg/dL (74-99); Non-African American GFR(MDRD) >60 (>60 ml/min/1.73 sqM); Potassium 3.6 mmol/L (3.5-5.1); Sodium 143 mmol/L (137-145)
[2016-09-13] MEDS: FUROSEMIDE 10 MG/ML 4 ML VIAL IV SCH ×2 (08:25→22:38)
[2016-09-13] MEDS: ISOSORBIDE MONONITRATE ER 60 MG TAB.ER.24H PO SCH (08:25)
[2016-09-13] MEDS: METOPROLOL SUCCINATE (ER) 100 MG TAB.ER.24H PO SCH (08:26)
[2016-09-13] MEDS: LOSARTAN 50 MG TAB PO SCH (08:26)
[2016-09-13] MEDS: IPRATROPIUM-ALBUTEROL 3 ML NEB INHALATION SCH ×4 (08:40→19:41)
[2016-09-13 11:59] LABS: Glucose,Whole Blood 156 mg/dL (75-99)
--- NOTE | 2016-09-13 13:45 | P.PN ---
Subjective Principal diagnosis: CHF This is a pleasant 81-year-old female patient with a past medical history significant for intermediate triple-vessel coronary artery disease, mild cardiomyopathy with a known ejection fraction of 45%, hypertension, dyslipidemia, and myelodysplastic disorder, was admitted to the hospital with congestive heart failure. The patient was found to be severely anemic recently where she was admitted to the hospital and received 2 units of packed RBC. After the blood transfusion the patient started experiencing progressive exertional dyspnea and she was admitted to the hospital was congestive heart failure exacerbation. I'll follow-up with her today, she stated that the shortness of breath is better but she continues to have dyspnea even with minor activities. She continues to have also mild bilateral lower extremities edema. I am going to continue the Lasix IV. I will continue monitor the kidney function and electrolytes. Also I will obtain a CBC for tomorrow to check hemoglobin. Objective - Vital Signs Vital signs: Vital Signs Temp 96.3 F L 09/13/16 08:21 Pulse 80 09/13/16 11:57 Resp 16 09/13/16 11:32 BP 138/64 09/13/16 11:31 Pulse Ox 94 L 09/13/16 11:31 Intake & Output 09/12/16 09/13/16 09/13/16 18:59 06:59 18:59 Intake Total 210 Output Total 950 750 400 Balance -740 -750 -400 Weight 84.7 kg Intake: Oral 210 Output: Urine 950 750 400 Other: Voiding Method Toilet Toilet Toilet # Voids 0 1 - Constitutional General appearance: Present: no acute distress - Respiratory Respiratory: bilateral: diminished - Cardiovascular Rhythm: regular Heart sounds: normal: S1, S2 Abnormal Heart Sounds: Present: systolic murmur - Labs CBC & Chem 7: 09/10/16 01:25 09/13/16 06:23 Labs: Abnormal Lab Results - Last 24 Hours (Table) 09/12/16 09/12/16 09/13/16 Range/Units 16:46 20:39 06:21 Carbon Dioxide (22-30) mmol/L BUN (7-17) mg/dL Glucose (74-99) mg/dL POC Glucose (mg/dL) 148 H 175 H 163 H (75-99) mg/dL 09/13/16 09/13/16 Range/Units 06:23 11:54 Carbon Dioxide 32 H (22-30) mmol/L BUN 45 H (7-17) mg/dL Glucose 163 H (74-99) mg/dL POC Glucose (mg/dL) 156 H (75-99) mg/dL Assessment and Plan Plan: Assessment #1 congestive heart failure exacerbation secondary to systolic dysfunction. #2 intermediate triple-vessel coronary artery disease #3 dysplastic disorder and status post blood transfusion #4 multiple comorbid conditions Plan #1 continue the IV Lasix #2 continue monitor the kidney function and electrolytes #3 obtain a CBC in the morning #4 follow-up with the patient
[2016-09-13] MEDS: predniSONE 20 MG TAB PO SCH (13:57)
[2016-09-13 16:30] LABS: INR 2.7 (<1.1); Prothrombin Time 25.8 sec (9.0-12.0)
[2016-09-13 17:01] LABS: Glucose,Whole Blood 133 mg/dL (75-99)
[2016-09-13] MEDS: POTASSIUM CHLORIDE ER 10 MEQ TAB.ER.PRT PO SCH (17:20)
[2016-09-13 20:57] LABS: Glucose,Whole Blood 214 mg/dL (75-99)
[2016-09-14 06:17] LABS: Anisocytosis Slight; Basophils % (A) 0 %; CH 32.1; CHCM 32.8; Eosinophils % (A) 0 %; HCT 29.7 % (34.0-46.0); HDW 3.45; HGB 9.8 gm/dL (11.4-16.0); Hypochromasia Slight; Luc # (Auto) 0.16; Luc % (Auto) 4; Lymphocytes # (A) 0.8 k/uL (1.0-4.8); Lymphocytes % (A) 18 %; MCH 32.5 pg (25.0-35.0); MCV 98.2 fL (80.0-100.0); Macrocytosis Moderate; Mean Platelet Volume 7.8; Monocytes # (A) 0.3 k/uL (0-1.0); Monocytes % (A) 8 %; Neutrophils % (A) 70 %; Poikilocytosis Slight; RBC 3.02 m/uL (3.80-5.40); RDW 19.7 % (11.5-15.5); WBC 4.2 k/uL (3.8-10.6); WBC (Perox) 4.24
[2016-09-14 06:22] LABS: Anion Gap 11 mmol/L; Blood Urea Nitrogen 45 mg/dL (7-17); Calcium 9.9 mg/dL (8.4-10.2); Carbon Dioxide 35 mmol/L (22-30); Chloride 97 mmol/L (98-107); Glucose 137 mg/dL (74-99); Non-African American GFR(MDRD) 59 (>60 ml/min/1.73 sqM); Potassium 3.7 mmol/L (3.5-5.1); Sodium 143 mmol/L (137-145)
[2016-09-14 06:23] LABS: INR 2.5 (<1.1); Prothrombin Time 23.7 sec (9.0-12.0)
[2016-09-14 07:12] LABS: Glucose,Whole Blood 132 mg/dL (75-99)
[2016-09-14] MEDS: INSULIN LISPRO (humaLOG) 300 UNIT/3 ML VIAL SQ SCH ×2 (07:38→12:14)
[2016-09-14] MEDS: LEVOTHYROXINE 100 MCG TAB PO SCH (07:38)
[2016-09-14] MEDS: FUROSEMIDE 10 MG/ML 4 ML VIAL IV SCH (08:08)
[2016-09-14] MEDS: ISOSORBIDE MONONITRATE ER 60 MG TAB.ER.24H PO SCH (08:09)
[2016-09-14] MEDS: METOPROLOL SUCCINATE (ER) 100 MG TAB.ER.24H PO SCH (08:09)
[2016-09-14] MEDS: POTASSIUM CHLORIDE ER 10 MEQ TAB.ER.PRT PO SCH (08:09)
[2016-09-14] MEDS: LOSARTAN 50 MG TAB PO SCH (08:09)
[2016-09-14] MEDS: predniSONE 20 MG TAB PO SCH (08:09)
[2016-09-14] MEDS: IPRATROPIUM-ALBUTEROL 3 ML NEB INHALATION SCH (08:38)
--- NOTE | 2016-09-14 11:11 | PN ---
Patient is admitted with congestive heart failure exacerbation. Patient has minimally depressed ejection fraction. Patient may have a component of diastolic dysfunction as well. Patient is clinically doing well. Patient had significant clinical improvement, I believe. REVIEW OF SYSTEMS: CARDIOVASCULAR: No chest pain, no orthopnea, no PND, no palpitations. PULMONARY: As described in HPI. GASTROINTESTINAL: No diarrhea, nausea or vomiting. No abdominal pain. Normoactive bowel sounds. NEUROLOGIC: No headaches, no weakness, no numbness. INTERVAL HISTORY: Medications were reviewed. On physical examination, vital signs, temperature 96.9, pulse of 76, respiratory rate of 16, blood pressure is 143/65, saturating at 95% on room air. PHYSICAL EXAMINATION: CARDIOVASCULAR: Patient's JVD improved. Patient's pedal edema resolved. GENERAL: The patient is alert and oriented x3, not in any acute distress. Well developed, well nourished. HEENT: Pupils are round and equally reacting to light. EOMI. No scleral icterus. No conjunctival pallor. Normocephalic, atraumatic. No pharyngeal erythema. No thyromegaly. PULMONARY: Chest is clear to auscultation, no wheezing or crackles. ABDOMEN: Soft, nontender, nondistended, normoactive bowel sounds. No palpable organomegaly. MUSCULOSKELETAL: No joint swelling or deformity. EXTREMITIES: No cyanosis, clubbing, or pedal edema. NEUROLOGICAL: Gross neurological examination did not reveal any focal deficits. SKIN: No rashes. LABORATORY DATA: CBC and BMP abnormal for mildly elevated BUN of 45, creatinine of 0.90. ASSESSMENT AND PLAN: 1. Congestive heart failure, chronic systolic dysfunction with acute exacerbation. Patient may have chronic diastolic dysfunction component as well. 2. Pancytopenia secondary to myelodysplastic syndrome. Patient is lenalidomide regimen. There is no coronary artery disease. 3. History of deep venous thrombosis, presently not on any anticoagulation. 4. Hyperlipidemia. 5. Hypothyroidism. 6. History of myocardial infarction. 7. Sick euthyroid syndrome. PLAN: As mentioned above.
[2016-09-14 12:01] LABS: Glucose,Whole Blood 128 mg/dL (75-99)
[2016-09-14 13:21] VITALS: RESP 18
[2016-09-14 13:24] VITALS: BP 144/66; PULSE 70; TEMP 98.8
--- NOTE | 2016-09-14 13:32 | P.PN ---
Subjective Principal diagnosis: CHF This is a pleasant 81-year-old female who follows regularly with Dr. Millan in the office. 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 Most recent echocardiogram with Doppler study was performed in the office which revealed an ejection fraction of 50% with mild MR and mild TR this was performed in June 2016. Recently patient was diagnosed with myelodysplasia, she has had a 21 duration of chemotherapy and is currently on her one week off of chemo. Patient has anemia from her myelodysplasia, she had required a one unit of blood transfusion, had received 2 units of blood transfusion particularly admission here. Following that patient apparently became quite short of breath and was admitted to the hospital for that reason. EKG on admission here showed a normal sinus rhythm with a left bundle-branch block pattern with PACs. Chest x-ray revealed evidence of a thoracic aortic aneurysm sleeve in place with thoracic aortic aneurysm measuring 6.98 cm in diameter, mild bilateral pleural effusions and bibasilar lung infiltrates and/or atelectasis. Mild pulmonary vascular congestion. Patient was initiated on IV Lasix and has been diuresing well. Her weight today is down 1 kg. Creatinine 0.92. Overall patient's breathing is much improved. Still mildly short of breath with exertion, on room air. Complaining of a mild sore throat today. Objective - Vital Signs Vital signs: Vital Signs Temp 98.8 F 09/14/16 12:00 Pulse 80 09/14/16 12:00 Resp 18 09/14/16 12:00 BP 144/66 09/14/16 12:00 Pulse Ox 94 L 09/14/16 12:00 Intake & Output 09/13/16 09/14/16 09/14/16 18:59 06:59 18:59 Intake Total 240 540 Output Total 800 650 600 Balance -800 -410 -60 Weight 83.9 kg Intake: Oral 240 540 Output: Urine 800 650 600 Other: Voiding Method Toilet Toilet # Voids 4 # Bowel Movements 1 - Exam PHYSICAL EXAMINATION: HEENT: Head is atraumatic, normocephalic. Pupils equal, round. Neck is supple. There is elevated jugular venous pressure. HEART EXAMINATION: Heart S1 and S2 irregular irregular systolic ejection murmur is heard. CHEST EXAMINATION: Lungs reveal diminished air entry to bilateral bases. ABDOMEN: Soft, nontender. Bowel sounds are heard. No organomegaly noted. EXTREMITIES: 2+ peripheral pulses with trace evidence of peripheral edema and no calf tenderness noted. Right leg is larger than the left. NEUROLOGIC patient is awake, alert and oriented -3. - Labs CBC & Chem 7: 09/14/16 05:50 09/14/16 05:50 Labs: Abnormal Lab Results - Last 24 Hours (Table) 09/13/16 09/13/16 09/13/16 Range/Units 16:12 16:59 20:36 RBC (3.80-5.40) m/uL Hgb (11.4-16.0) gm/dL Hct (34.0-46.0) % RDW (11.5-15.5) % Plt Count (150-450) k/uL Lymphocytes # (1.0-4.8) k/uL PT 25.8 H (9.0-12.0) sec Chloride (98-107) mmol/L Carbon Dioxide (22-30) mmol/L BUN (7-17) mg/dL Glucose (74-99) mg/dL POC Glucose (mg/dL) 133 H 214 H (75-99) mg/dL 09/14/16 09/14/16 09/14/16 Range/Units 05:50 05:50 05:50 RBC 3.02 L (3.80-5.40) m/uL Hgb 9.8 L (11.4-16.0) gm/dL Hct 29.7 L (34.0-46.0) % RDW 19.7 H (11.5-15.5) % Plt Count 131 L D (150-450) k/uL Lymphocytes # 0.8 L (1.0-4.8) k/uL PT 23.7 H (9.0-12.0) sec Chloride 97 L (98-107) mmol/L Carbon Dioxide 35 H (22-30) mmol/L BUN 45 H (7-17) mg/dL Glucose 137 H (74-99) mg/dL POC Glucose (mg/dL) (75-99) mg/dL 09/14/16 09/14/16 Range/Units 07:07 11:59 RBC (3.80-5.40) m/uL Hgb (11.4-16.0) gm/dL Hct (34.0-46.0) % RDW (11.5-15.5) % Plt Count (150-450) k/uL Lymphocytes # (1.0-4.8) k/uL PT (9.0-12.0) sec Chloride (98-107) mmol/L Carbon Dioxide (22-30) mmol/L BUN (7-17) mg/dL Glucose (74-99) mg/dL POC Glucose (mg/dL) 132 H 128 H (75-99) mg/dL Assessment and Plan Plan: Assessment and plan #1 congestive cardiac failure, most recent echo revealed a normal left ventricular systolic function, likely diastolic in nature, could be secondary to recent blood transfusions. Echo revealed an ejection fraction of 40-45%. #2 hypertension #3 hyperlipidemia #4 peripheral vascular disease #5 family history of premature coronary artery disease #6 coronary artery disease with moderate triple-vessel disease as documented by heart catheterization in 2012 #7 recent diagnosis of myelodysplastic disorder, recently received a 21 day duration of chemotherapy #8 leukopenia and thrombocytopenia secondary to her myelodysplastic disorder #9 anemia, patient just recently received 3 units of packed red blood cells, yesterday she received 2 units. #10 thoracic aortic aneurysm status post endograft repair #11 acute on chronic renal disease. Plan From cardiology's perspective, we can discontinue the IV Lasix today and start the patient on oral diuretics. She may be able to be discharged home once cleared by the primary. She does have a scheduled follow-up appointment with Dr. Millan in the office. DNP note has been reviewed, I agree with a documented findings and plan of care. Patient was seen and examined.
--- NOTE | 2016-09-14 14:39 | CDI ---
In responding to this query, please exercise your independent professional judgment. The [facility] Coding Staff and Clinical Documentation Specialists appreciate your assistance in clarifying documentation, maintaining compliance with coding guidelines, accurately documenting patients condition and capturing severity of illness. The fact that a question is asked does not imply that any particular answer is desired or expected. Communication forms are a method of clarifying documentation and are not made part of the Legal Health Record. Thank you in advance for your clarification. Last Revision, November 2015 Sylvie Hernandez [address] [place] [address] Documentation Clarification Form Date: 09/14/2016 2:29:00 PM From: Phylicia Schulz Admit Date: 09/10/2016 3:21:00 AM Patient Name: Daisy Aragon Visit Number: [id number] Dr. Ted Hopson and Alisia Metzger NP Conflicting Documentation is found in the record. Acute on Chronic CHF is documented in the progress notes by both the attending and Cardiology. Systolic Dysfunction is documented by Dr Hopson on 09/13. Diastolic Dysfunction is documented by Alisia on 09/14. Attending is documenting Systolic Dysfunction. History/Risk Factors: Hypertension CAD Myelodysplastic disorder Clinical Indicators: Echocardiogram Results on 09/10/2016: ef 40-45%, left ventricular systolic function is mild-moderately impaired Treatment: Consults: Cardiology IV Lasix now changed to PO In your professional opinion, can you please clarify the acuity and type of CHF if known? Acute on Chronic CHF Systolic Acute on Chronic CHF Diastolic Acute on Chronic CHF both Systolic and Diastolic Unable to determine Other, please specify Please document in your progress notes and discharge summary in order to capture severity of illness and risk of mortality. Include clinical findings that support your diagnosis. FYI: Press F11 to launch patient chart. Place X here if this finding has no clinical significance, is not applicable or if you are not able to provide any additional documentation. [facility]
--- NOTE | 2016-09-14 15:02 | CDI ---
In responding to this query, please exercise your independent professional judgment. The [facility] Coding Staff and Clinical Documentation Specialists appreciate your assistance in clarifying documentation, maintaining compliance with coding guidelines, accurately documenting patients condition and capturing severity of illness. The fact that a question is asked does not imply that any particular answer is desired or expected. Communication forms are a method of clarifying documentation and are not made part of the Legal Health Record. Thank you in advance for your clarification. Last Revision, July 2015 Sylvie Hernandez [address] [facility] [place] [address] Documentation Clarification Form Date: 09/14/2016 2:39:00 PM From: Phylicia Parklexy Admit Date: 09/10/2016 3:21:00 AM Patient Name: Daisy Aragon Visit Number: [id number] Dr. Ted Hopson and Alisia Metzger NP Cardiology progress notes state 'acute on chronic renal disease'. History/Risk Factors: Hypertension CHF exacerbation IV lasix Clinical Indicators: Labs on admission: BUN/CR/GFR 21/0.90/>60 Labs on 09/11: BUN/CR/GFR 35/1.10/48 Labs on 09/14: BUN/CR/GFR 45/0.92/59 Renal Disease is not documented by the attending Treatment: No Nephrology Consult IV fluids @ 20 cc/hr on 09/10 and then d/c'd In order to capture the severity of condition, please clarify if the condition signifies: Acute renal failure Acute on chronic renal failure Chronic kidney disease (CKD) and please stage Stage 2 GFR 60-89 Stage 3 GFR 30-59 Other Stage (please specify) Unable to determine Other, specify Please document in your progress notes and discharge summary in order to capture severity of illness and risk of mortality. Include clinical findings that support your diagnosis. FYI: Press F11 to launch patient chart. Place X here if this finding has no clinical significance, is not applicable or if you are not able to provide any additional documentation. JUNAIDD
[2016-09-14] MEDS ORDERED: FUROSEMIDE 20 MG TAB PO SCH (16:00)
--- NOTE | 2016-09-15 08:40 | DS ---
DATE OF ADMISSION: 09/10/2016 DATE OF DISCHARGE: 09/14/2016 Patient is admitted with CHF exacerbation. Patient has minimally depressed ejection fraction, possibility of a component of diastolic dysfunction. Patient is clinically improving. The patient is being discharged today. Vitals are stable. PHYSICAL EXAMINATION: GENERAL: The patient is alert and oriented x3, not in any acute distress. Well developed, well nourished. HEENT: Pupils are round and equally reacting to light. EOMI. No scleral icterus. No conjunctival pallor. Normocephalic, atraumatic. No pharyngeal erythema. No thyromegaly. CARDIOVASCULAR: S1 and S2 present. No murmurs, rubs, or gallops. PULMONARY: Chest is clear to auscultation, no wheezing or crackles. ABDOMEN: Soft, nontender, nondistended, normoactive bowel sounds. No palpable organomegaly. MUSCULOSKELETAL: No joint swelling or deformity. EXTREMITIES: No cyanosis, clubbing, or pedal edema. NEUROLOGICAL: Gross neurological examination did not reveal any focal deficits. SKIN: No rashes. Patient had significant clinical improvement since her admission. Patient is being discharged on 20 oral p.o. b.i.d. of Lasix as recommended by Cardiology. ASSESSMENT AND PLAN: 1. Congestive heart failure, chronic systolic dysfunction with acute exacerbation with a component of diastolic dysfunction. 2. Pancytopenia secondary to myelodysplastic syndrome and ( ) syndrome for which patient is on lenalidomide therapy. Patient's congestive heart failure was precipitated by ( ) transfusion and history of deep venous thrombosis. 3. Hyperlipidemia. 4. Hypertension. 5. History of myocardial infarction. 6. Sick euthyroid syndrome for which TSH needs to be repeated in about a week. The patient is being discharged in stable medical condition to home. Activity as tolerated. Patient declined any home care. Patient was also treated for possibility COPD exacerbation for which patient is being discharged on weaning dose of steroids, although my suspicion is low for that. Please refer to my depart summary for further details of discharge medications. The patient will follow with Dr. Kay on the lseptember at 1:50. Will follow with Cardiology as scheduled. Follow up with Oncology as scheduled. Spent greater than 35 minutes in total discharge process. DISCHARGE DIET: Cardiac and diabetic 1800 calorie diet. Activity as tolerated.
== END 2016-09-14 15:06 | disposition home or self-care (01) | DRG 291 ==
LOC: EC 01:08 → 6SEL 03:21
PROVIDERS: ADMIT Hospitalist; ATTEND Hospitalist
DX: I13.0 Hypertensive heart and chronic kidney disease with heart failure and stage 1 through stage 4 chronic kidney disease, or unspecified chronic kidney disease (principal); I50.43 Acute on chronic combined systolic (congestive) and diastolic (congestive) heart failure; J96.01 Acute respiratory failure with hypoxia; D61.818 Other pancytopenia; I71.2 Thoracic aortic aneurysm, without rupture; J44.1 Chronic obstructive pulmonary disease with (acute) exacerbation; D46.9 Myelodysplastic syndrome, unspecified; J98.11 Atelectasis; I42.9 Cardiomyopathy, unspecified; E03.9 Hypothyroidism, unspecified; E07.81 Sick-euthyroid syndrome; E78.5 Hyperlipidemia, unspecified; I25.10 Atherosclerotic heart disease of native coronary artery without angina pectoris; I25.2 Old myocardial infarction; I44.7 Left bundle-branch block, unspecified; I73.9 Peripheral vascular disease, unspecified; M19.90 Unspecified osteoarthritis, unspecified site; N18.9 Chronic kidney disease, unspecified; Z96.1 Presence of intraocular lens; Z82.49 Family history of ischemic heart disease and other diseases of the circulatory system; Z86.718 Personal history of other venous thrombosis and embolism; Z86.72 Personal history of thrombophlebitis; Z88.5 Allergy status to narcotic agent; Z88.2 Allergy status to sulfonamides; Z88.8 Allergy status to other drugs, medicaments and biological substances; Z91.041 Radiographic dye allergy status; Z79.899 Other long term (current) drug therapy; Z79.01 Long term (current) use of anticoagulants
CPT/HCPCS: 36415; 36430; 71010; 80048; 80053; 81003; 82550; 82553; 83010; 83036; 83735; 83880; 84132; 84439; 84443; 84484; 85025; 85045; 85384; 85610; 85730; 86850; 86900; 86901; 86920; 87086; 93005; 93306; 94640; 94760; 96374; 96375; 99291

== ENCOUNTER → 2017-07-20 | Outpatient (CLI) | payer MEDICARE, BC ==
[2017-07-20 12:56] LABS: Basophils # (A) 0.1 k/uL (0-0.2); Basophils % (A) 1 %; CHCM 30.4; Eosinophils # (A) 0.3 k/uL (0-0.7); Eosinophils % (A) 7 %; HCT 33.1 % (34.0-46.0); HDW 2.44; HGB 10.4 gm/dL (11.4-16.0); Hypochromasia Moderate; Luc # (Auto) 0.07; Luc % (Auto) 2; Lymphocytes # (A) 1.4 k/uL (1.0-4.8); Lymphocytes % (A) 34 %; MCH 31.2 pg (25.0-35.0); MCHC 31.4 g/dL (31.0-37.0); MCV 99.2 fL (80.0-100.0); Macrocytosis Slight; Mean Platelet Volume 9.5; Monocytes # (A) 0.3 k/uL (0-1.0); Monocytes % (A) 8 %; Neutrophils # (A) 2.1 k/uL (1.3-7.7); Neutrophils % (A) 48 %; RBC 3.34 m/uL (3.80-5.40); RDW 15.8 % (11.5-15.5); WBC 4.3 k/uL (3.8-10.6); WBC (Perox) 4.53
[2017-07-20 13:08] LABS: Calcium 10.5 mg/dL (8.4-10.2); Potassium 4.7 mmol/L (3.5-5.1); Total Bilirubin 0.7 mg/dL (0.2-1.3); Total Protein 7.1 g/dL (6.3-8.2)
[2017-07-20 13:10] LABS: INR 2.4 (<1.2); Prothrombin Time 23.3 sec (9.0-12.0)
== END | disposition home or self-care (01) ==
LOC: LABWHC1 12:40
PROVIDERS: ATTEND Surgery
DX: Z01.812 Encounter for preprocedural laboratory examination (principal); I71.4 Abdominal aortic aneurysm, without rupture
CPT/HCPCS: 36415; 80053; 85025; 85610

== ENCOUNTER 2017-11-19 04:53 | Observation (INO) | payer MEDICARE, BC ==
[2017-11-19] MEDS ORDERED: SODIUM CHLORIDE 0.9% 1,000 ML IV STA (05:25)
[2017-11-19] MEDS ORDERED: IPRATROPIUM 0.5 MG/2.5 ML NEBU INHALATION STA (05:25)
[2017-11-19] MEDS ORDERED: ALBUTEROL NEBULIZED 2.5 MG/3 ML INHALATION STA (05:25)
[2017-11-19] MEDS ORDERED: FUROSEMIDE 10 MG/ML 4 ML VIAL IV STA (05:25)
[2017-11-19] MEDS ORDERED: methylPREDNISolone SOD SUCCI 125 MG/2 ML VIAL IV STA ×2 (05:25→16:24)
--- NOTE | 2017-11-19 05:46 | ED ---
SOB HPI - General Chief Complaint: Shortness of Breath Stated Complaint: ISAAC Time Seen by Provider: 11/19/17 04:58 Source: patient, EMS Mode of arrival: EMS - History of Present Illness Initial Comments: 82 years O female history of coronary artery disease, devious thrombosis, hyperlipidemia, hypertension, thyroid disease presents with the shortness of breath she went to bed last night feeling fine she woke up about 2 AM she was not able to lay flat in the bed she ended up sitting up there was only range. . She is complaining about the mild dull chest pain gets worse with deep breaths denies any fever no chills she is not coughing up any phlegm, review of system is unremarkable otherwise - Related Data Home Medications Medication Instructions Recorded Confirmed amLODIPine BESYLATE [Amlodipine 5 mg PO DAILY 09/30/15 11/19/17 Besylate] Potassium Chloride [Klor-Con 10] 10 meq PO DAILY 07/20/16 11/19/17 Levothyroxine Sodium [Synthroid] 100 mcg PO DAILY 09/10/16 11/19/17 Metoprolol Succinate [Toprol XL] 100 mg PO DAILY 09/10/16 11/19/17 Isosorbide Mononitrate ER [Imdur] 30 mg PO DAILY 08/04/17 11/19/17 Lenalidomide [Revlimid] 5 mg PO DAILY@199908/04/17 11/19/17 Ondansetron [Zofran] 4 mg PO Q6HR PRN 08/04/17 11/19/17 Warfarin [Coumadin] 5 mg PO HS 08/04/17 11/19/17 Diphenox-Atrop 2.5-0.025 mg 1 tab PO DAILY 11/19/17 11/19/17 [Lomotil] Previous Rx's Medication Instructions Recorded Furosemide [Lasix] 20 mg PO BID@0900,1600 #60 tab 09/14/16 Allergies Allergy/AdvReac Type Severity Reaction Status Date / Time black pepper Allergy Severe Anaphylaxis Verified 11/19/17 07:20 peanut Allergy Severe Anaphylaxis Verified 11/19/17 07:20 atropine [From ] Allergy Unknown Verified 11/19/17 07:20 chocolate flavor Allergy Itching Verified 11/19/17 07:20 Egg Derived Allergy Itching Verified 11/19/17 07:20 hyoscyamine [From ] Allergy Unknown Verified 11/19/17 07:20 Iodinated Contrast- Oral and Allergy Swelling Verified 11/19/17 07:20 IV Dye [Iodinated Contrast Media - IV Dye] phenobarbital [From ] Allergy Unknown Verified 11/19/17 07:20 propoxyphene [From Darvon] Allergy Unknown Verified 11/19/17 07:20 scopolamine [From ] Allergy Unknown Verified 11/19/17 07:20 Sulfa (Sulfonamide Allergy Rash/Hives Verified 11/19/17 07:20 Antibiotics) venom-honey bee Allergy Unknown Verified 11/19/17 07:20 [bee venom (honey bee)] acetaminophen [From [place]] AdvReac Hallucinati Verified 11/19/17 07:20 ons belladonna alkaloids AdvReac Unknown Verified 11/19/17 07:20 hydrocodone [From [place]] AdvReac Hallucinati Verified 11/19/17 07:20 ons simvastatin [From Zocor] AdvReac WEAKNESS Verified 11/19/17 07:20 SMELT Allergy Itching Uncoded 08/04/17 21:08 Review of Systems ROS Statement: Those systems with pertinent positive or pertinent negative responses have been documented in the HPI. ROS Other: All systems not noted in ROS Statement are negative. Past Medical History Past Medical History: Blood Disorder, Coronary Artery Disease (CAD), Chest Pain / Angina, Deep Vein Thrombosis (DVT), GI Bleed, Hyperlipidemia, Hypertension, Myocardial Infarction ([place]), Thyroid Disorder, Vascular Disorder Additional Past Medical History / Comment(s): 3 HEART BLOCKAGES/LEAKY CARDIAC VALVE/HIATAL HERNIA/CHRONIC THROMBOPHLEBITIS/ARTHRITIS,H-pylori. 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 MDS-blood CA, AAA Last Myocardial Infarction Date:: UNKNOWN History of Any Multi-Drug Resistant Organisms: None Reported Past Surgical History: Appendectomy, Cholecystectomy, Heart Catheterization, Hysterectomy Additional Past Surgical History / Comment(s): HEMORROIDECTOMY/EXPL. LAP/bilat. fermin implants, BILAT/ALMAS FILTER, AAA repair-07/28 Past Anesthesia/Blood Transfusion Reactions: No Reported Reaction Past Psychological History: No Psychological Hx Reported Smoking Status: Never smoker Past Alcohol Use History: None Reported Past Drug Use History: None Reported - Past Family History Father Family Medical History: Coronary Artery Disease (CAD), Myocardial Infarction ([place] ) Mother Family Medical History: COPD, Coronary Artery Disease (CAD), Deep Vein Thrombosis (DVT) Brother(s) Family Medical History: Coronary Artery Disease (CAD), Myocardial Infarction ([place] ) Sister(s) Family Medical History: Cancer General Exam - General Exam Comments Initial Comments: General: The patient is awake and alert, in no distress, and does not appear acutely ill. GCS is 15 Skin: Skin is warm and dry and no rashes or lesions are noted. Eye: Pupils are equal, round and reactive to light, extra-ocular movements are intact; there is normal conjunctiva bilaterally. Ears, nose, mouth and throat: There are moist mucous membranes and no oral lesions. Neck: The neck is supple, there is no tenderness Cardiovascular: Noticed atrial fibrillation Respiratory: To auscultation bilateral, noticed a very poor air exchange Gastrointestinal: Soft, non-distended, non-tender abdomen without masses or organomegaly noted. There is no rebound or guarding present. Bowel sounds are unremarkable. Back: There is no tenderness to palpation in the midline. There is no obvious deformity. Musculoskeletal: Normal ROM, no tenderness, There is no pedal edema. There is no calf tenderness or swelling. No cords were appreciated. Neurological: CN II-XII intact, Cranial nerves III through XII are intact. There are no obvious motor or sensory deficits. Coordination appears grossly intact. Speech is normal. Psychiatric: Cooperative, appropriate mood & affect, normal judgment. Course Vital Signs 11/19/17 11/19/17 11/19/17 04:55 05:02 05:39 Temperature 98.1 F Pulse Rate 75 88 Respiratory 20 20 Rate Blood Pressure 174/73 O2 Sat by Pulse 93 L Oximetry 11/19/17 11/19/17 05:56 06:42 Temperature Pulse Rate 91 96 Respiratory 18 Rate Blood Pressure 165/71 O2 Sat by Pulse 96 Oximetry EKG is a atrial fibrillation and it's also left bundle branch block and ventricular rate is 84 QRS duration is 160 QT/QTc is 414/489 review of this EKG confirms a left bundle branch block - Reevaluation(s) Reevaluation #1: VQ scan is going to be done inpatient, she is already on Coumadin him a will repeat the INR and let the hospitalist service keep an eye on the V/Q report because VQ scan report will not be available for a few hours 11/19/17 07:25 Medical Decision Making - Lab Data Result diagrams: 11/19/17 04:58 11/19/17 04:58 Lab Results 11/19/17 11/19/17 11/19/17 Range/Units 04:58 04:58 04:58 WBC 3.6 L (3.8-10.6) k/uL RBC 3.73 L (3.80-5.40) m/uL Hgb 11.2 L (11.4-16.0) gm/dL Hct 34.4 (34.0-46.0) % MCV 92.0 (80.0-100.0) fL MCH 29.9 (25.0-35.0) pg MCHC 32.5 (31.0-37.0) g/dL RDW 15.9 H (11.5-15.5) % Plt Count 112 L (150-450) k/uL Neutrophils % 48 % Lymphocytes % 35 % Monocytes % 6 % Eosinophils % 8 % Basophils % 1 % Neutrophils # 1.7 (1.3-7.7) k/uL Lymphocytes # 1.2 (1.0-4.8) k/uL Monocytes # 0.2 (0-1.0) k/uL Eosinophils # 0.3 (0-0.7) k/uL Basophils # 0.0 (0-0.2) k/uL PT (9.0-12.0) sec INR (<1.2) APTT (22.0-30.0) sec D-Dimer (<0.60) mg/L FEU Sodium 140 (137-145) mmol/L Potassium 3.9 (3.5-5.1) mmol/L Chloride 102 (98-107) mmol/L Carbon Dioxide 27 (22-30) mmol/L Anion Gap 11 mmol/L BUN 26 H (7-17) mg/dL Creatinine 0.92 (0.52-1.04) mg/dL Est GFR (CKD-EPI)AfAm 67 (>60 ml/min/1.73 sqM) Est GFR (CKD-EPI)NonAf 58 (>60 ml/min/1.73 sqM) Glucose 108 H (74-99) mg/dL Calcium 10.4 H (8.4-10.2) mg/dL Total Bilirubin 0.6 (0.2-1.3) mg/dL AST 16 (14-36) U/L ALT 18 (9-52) U/L Alkaline Phosphatase 101 (38-126) U/L Total Creatine Kinase 31 (30-135) U/L CK-MB (CK-2) 0.8 (0.0-2.4) ng/mL CK-MB (CK-2) Rel Index 2.6 Troponin I 0.045 H* (0.000-0.034) ng/mL Total Protein 7.5 (6.3-8.2) g/dL Albumin 3.8 (3.5-5.0) g/dL 11/19/17 Range/Units 04:58 WBC (3.8-10.6) k/uL RBC (3.80-5.40) m/uL Hgb (11.4-16.0) gm/dL Hct (34.0-46.0) % MCV (80.0-100.0) fL MCH (25.0-35.0) pg MCHC (31.0-37.0) g/dL RDW (11.5-15.5) % Plt Count (150-450) k/uL Neutrophils % % Lymphocytes % % Monocytes % % Eosinophils % % Basophils % % Neutrophils # (1.3-7.7) k/uL Lymphocytes # (1.0-4.8) k/uL Monocytes # (0-1.0) k/uL Eosinophils # (0-0.7) k/uL Basophils # (0-0.2) k/uL PT 17.7 H (9.0-12.0) sec INR 1.9 H (<1.2) APTT 23.1 (22.0-30.0) sec D-Dimer 17.89 H (<0.60) mg/L FEU Sodium (137-145) mmol/L Potassium (3.5-5.1) mmol/L Chloride (98-107) mmol/L Carbon Dioxide (22-30) mmol/L Anion Gap mmol/L BUN (7-17) mg/dL Creatinine (0.52-1.04) mg/dL Est GFR (CKD-EPI)AfAm (>60 ml/min/1.73 sqM) Est GFR (CKD-EPI)NonAf (>60 ml/min/1.73 sqM) Glucose (74-99) mg/dL Calcium (8.4-10.2) mg/dL Total Bilirubin (0.2-1.3) mg/dL AST (14-36) U/L ALT (9-52) U/L Alkaline Phosphatase (38-126) U/L Total Creatine Kinase (30-135) U/L CK-MB (CK-2) (0.0-2.4) ng/mL CK-MB (CK-2) Rel Index Troponin I (0.000-0.034) ng/mL Total Protein (6.3-8.2) g/dL Albumin (3.5-5.0) g/dL Critical Care Time Total Critical Care Time: 45 Critical Care Time: 82 years old female came in with shortness of breath shortness of breath started about a few hours prior to arrival she went to bed feeling fine chest x- ray was done it showed just pleural effusion didn't show any suhail congestive heart failure she does have a history of heart failure and d-dimer is quite elevated 4.5, his metabolic panel is unremarkable otherwise troponin is elevated 0.045 INR is 1.9 and she is on a Coumadin considering that she would not be heparinized would continue the Coumadin she is ALLERGIC to iodine came To do CT chest angiogram considering the VQ scan on the floor and a she be admitted to Dr. Iqbal service cardiology be consulted Disposition Clinical Impression: Dyspnea, H/O congestive heart failure, Elevated troponin Disposition: ADMITTED IP TO THIS HOSP Condition: Good
[2017-11-19 05:47] LABS: Basophils % (A) 1 %; Eosinophils # (A) 0.3 k/uL (0-0.7); Eosinophils % (A) 8 %; HCT 34.4 % (34.0-46.0); HGB 11.2 gm/dL (11.4-16.0); Lymphocytes # (A) 1.2 k/uL (1.0-4.8); Lymphocytes % (A) 35 %; MCH 29.9 pg (25.0-35.0); MCHC 32.5 g/dL (31.0-37.0); Mean Platelet Volume 9.7; Monocytes # (A) 0.2 k/uL (0-1.0); Monocytes % (A) 6 %; Neutrophils # (A) 1.7 k/uL (1.3-7.7); Neutrophils % (A) 48 %; Platelet Count 112 k/uL (150-450); RBC 3.73 m/uL (3.80-5.40); RDW 15.9 % (11.5-15.5); WBC 3.6 k/uL (3.8-10.6)
[2017-11-19 05:56] LABS: Albumin 3.8 g/dL (3.5-5.0); Calcium 10.4 mg/dL (8.4-10.2); Potassium 3.9 mmol/L (3.5-5.1); Total Bilirubin 0.6 mg/dL (0.2-1.3); Total Protein 7.5 g/dL (6.3-8.2)
[2017-11-19 06:01] LABS: INR 1.9 (<1.2); Partial Thromboplastin Time 23.1 sec (22.0-30.0); Prothrombin Time 17.7 sec (9.0-12.0)
--- NOTE | 2017-11-19 06:18 | XR ---
EXAM: XR Chest, 2 Views CLINICAL HISTORY: None. TECHNIQUE: Frontal and lateral views of the chest. COMPARISON: Chest x-ray dated 08/05/2017 FINDINGS: Lungs: Bilateral pleural effusions with adjacent atelectasis. Pleural space: See above. Heart: Unchanged cardiomediastinal silhouette. Bones/joints: Degenerative changes of the osseous structures. Vasculature: Vascular stent within the descending thoracic aorta. IMPRESSION: Small bilateral pleural effusions with adjacent atelectasis.
[2017-11-19 06:26] LABS: Creatine Kinase MB 0.8 ng/mL (0.0-2.4)
[2017-11-19 06:31] LABS: Troponin I 0.045 ng/mL (0.000-0.034)
[2017-11-19] MEDS ORDERED: NITROGLYCERIN SL TABS 0.4 MG TAB SUBLINGUAL PRN (06:37)
[2017-11-19] MEDS ORDERED: ONDANSETRON 4 MG TAB PO PRN (06:40)
[2017-11-19] MEDS ORDERED: LOPERAMIDE 2 MG CAP PO PRN (06:40)
[2017-11-19] MEDS ORDERED: HYDROcodone/APAP 5-325MG 1 EACH TAB PO PRN (06:40)
[2017-11-19 07:15] LABS: D-Dimer 17.89 mg/L FEU (<0.60)
[2017-11-19] MEDS ORDERED: ENOXAPARIN 80 MG/0.8 ML SYRINGE SQ SCH (08:00)
[2017-11-19] MEDS ORDERED: LOSARTAN-HCTZ 50-12.5 MG 1 EACH TAB PO SCH (09:00)
[2017-11-19] MEDS: FUROSEMIDE 20 MG TAB PO SCH ×2 (09:02→20:35)
[2017-11-19] MEDS: ISOSORBIDE MONONITRATE ER 30 MG TAB.ER.24H PO SCH (09:02)
[2017-11-19] MEDS: METOPROLOL SUCCINATE (ER) 100 MG TAB.ER.24H PO SCH (09:02)
[2017-11-19] MEDS: POTASSIUM CHLORIDE ER 10 MEQ TAB.ER.PRT PO SCH (09:02)
[2017-11-19] MEDS: LEVOTHYROXINE 100 MCG TAB PO SCH (09:02)
[2017-11-19] MEDS: amLODIPine 5 MG TAB PO SCH (09:03)
[2017-11-19] MEDS: DIPHENOX-ATROP 2.5-0.025 MG 1 EACH TAB PO SCH (09:32)
[2017-11-19 11:33] LABS: Creatine Kinase MB 1.5 ng/mL (0.0-2.4)
[2017-11-19 11:41] LABS: Troponin I 0.326 ng/mL (0.000-0.034)
[2017-11-19] MEDS ORDERED: METHOCARBAMOL 500 MG TAB PO SCH (12:00)
--- NOTE | 2017-11-19 14:40 | P.CRDCN ---
History of Present Illness History of present illness: Patient interviewed and examined. See full dictation by nurse practitioner Presenting with shortness of breath orthopnea and right-sided chest discomfort and sweatiness. Underlying left bundle branch block Persistent atrial fibrillation Abnormal d-dimer is 17 Myelodysplastic syndrome platelet count 112,000 hemoglobin is 11 g/dL Thoracic descending and aortic and is status post stenting as well as redo surgery Hypertension Moderate CAD by coronary angiography Hypertension dyslipidemia Twelve-lead ECG shows atrial fibrillation with a left bundle branch block pattern I discussed this with the nurse and with Dr. Loaiza. Apparently she's been seen by the medical doctors, her admitting physicians and a PE workup is ongoing. She states she is unable to lie flat and therefore a VQ scan was ordered I would suggest Steroid prep since she has an iodine ALLERGY and then CT urography of the chest to assess for pulmonary embolism Start heparin I spoke to the nurse about this T new cardiac medications, discussed with nurse practitioner Past Medical History Past Medical History: Atrial Fibrillation, Blood Disorder, Coronary Artery Disease (CAD), Chest Pain / Angina, Heart Failure, Deep Vein Thrombosis (DVT), Eye Disorder, GERD/Reflux, Hyperlipidemia, Hypertension, Myocardial Infarction ( [place]), Osteoarthritis (OA), Pneumonia, Syncope, Thyroid Disorder, Vascular Disorder Additional Past Medical History / Comment(s): Pt recently diagnosed with Afib, MDS diagnosed in 2016 and takes oral chemo, DVTs multiple in R leg and once in L arm, PEs-showering pulmonary embolisms bilateral lungs, chronic thrombophlebitis, coronary blockages, leaky cardiac valves, AAA thoracic and abdominal both stented, duodenal ulcer, hiatal hernia, diverticular dx, colitis , IBS, H. Pylori, frequent diarrhea, chronic anemia, bronchitis, pneumonias, macular degeneration bilaterally, syncopal episodes. Last Myocardial Infarction Date:: UNKNOWN History of Any Multi-Drug Resistant Organisms: None Reported Past Surgical History: Appendectomy, Cholecystectomy, Heart Catheterization, Hysterectomy Additional Past Surgical History / Comment(s): 09/2015 thoracic aortic aneurysm stent, 07/2017 thoracic aortic aneurysm stent leaking and another stent placed as well as abdominal aortic aneurysm stented, cardiac caths, green field filter , bone marrow aspiration, exploratory lap for adhesions, EGD/colonoscopies with benign polypectomy, hemorrhoidectomy, R leg vein stripping. Past Anesthesia/Blood Transfusion Reactions: No Reported Reaction Smoking Status: Never smoker - Past Family History Father Family Medical History: Coronary Artery Disease (CAD), Myocardial Infarction ([place] ) Mother Family Medical History: COPD, Coronary Artery Disease (CAD), Deep Vein Thrombosis (DVT) Brother(s) Family Medical History: Coronary Artery Disease (CAD), Myocardial Infarction ([place] ) Sister(s) Family Medical History: Cancer Medications and Allergies Home Medications Medication Instructions Recorded Confirmed Type amLODIPine BESYLATE [Amlodipine 5 mg PO DAILY 09/30/15 11/19/17 History Besylate] Potassium Chloride [Klor-Con 10] 10 meq PO DAILY 07/20/16 11/19/17 History Levothyroxine Sodium [Synthroid] 100 mcg PO DAILY 09/10/16 11/19/17 History Metoprolol Succinate [Toprol XL] 100 mg PO DAILY 09/10/16 11/19/17 History Furosemide [Lasix] 20 mg PO BID@0900,1600 #60 tab 09/14/16 11/19/17 Rx Isosorbide Mononitrate ER [Imdur] 30 mg PO DAILY 08/04/17 11/19/17 History Lenalidomide [Revlimid] 5 mg PO DAILY@199908/04/17 11/19/17 History Ondansetron [Zofran] 4 mg PO Q6HR PRN 08/04/17 11/19/17 History Warfarin [Coumadin] 5 mg PO HS 08/04/17 11/19/17 History Diphenox-Atrop 2.5-0.025 mg 1 tab PO DAILY 11/19/17 11/19/17 History [Lomotil] Allergies Allergy/AdvReac Type Severity Reaction Status Date / Time black pepper Allergy Severe Anaphylaxis Verified 11/19/17 07:20 peanut Allergy Severe Anaphylaxis Verified 11/19/17 07:20 atropine [From ] Allergy Unknown Verified 11/19/17 07:20 chocolate flavor Allergy Itching Verified 11/19/17 07:20 Egg Derived Allergy Itching Verified 11/19/17 07:20 hyoscyamine [From ] Allergy Unknown Verified 11/19/17 07:20 Iodinated Contrast- Oral and Allergy Swelling Verified 11/19/17 07:20 IV Dye [Iodinated Contrast Media - IV Dye] phenobarbital [From ] Allergy Unknown Verified 11/19/17 07:20 propoxyphene [From [place]] Allergy Unknown Verified 11/19/17 07:20 scopolamine [From ] Allergy Unknown Verified 11/19/17 07:20 Sulfa (Sulfonamide Allergy Rash/Hives Verified 11/19/17 07:20 Antibiotics) venom-honey bee Allergy Unknown Verified 11/19/17 07:20 [bee venom (honey bee)] acetaminophen [From [place]] AdvReac Hallucinati Verified 11/19/17 07:20 ons belladonna alkaloids AdvReac Unknown Verified 11/19/17 07:20 hydrocodone [From [place]] AdvReac Hallucinati Verified 11/19/17 07:20 ons simvastatin [From Zocor] AdvReac WEAKNESS Verified 11/19/17 07:20 SMELT Allergy Itching Uncoded 08/04/17 21:08 Physical Exam Vitals: Vital Signs Temp Pulse Resp BP Pulse Ox 11/19/17 14:01 97.4 F L 75 18 160/69 98 11/19/17 13:00 18 11/19/17 12:00 98.0 F 72 18 131/86 99 11/19/17 11:20 76 18 143/72 100 11/19/17 09:48 88 18 174/97 98 11/19/17 08:39 106 H 20 172/74 100 11/19/17 06:42 96 18 165/71 96 11/19/17 05:56 91 11/19/17 05:39 88 11/19/17 05:02 20 11/19/17 04:55 98.1 F 75 20 174/73 93 L Intake and Output 11/18/17 11/19/17 11/19/17 22:59 06:59 14:59 Output Total 700 Balance -700 Output: Urine 700 Other: Weight 70.76 kg Results 11/19/17 04:58 11/19/17 04:58 Cardiac Enzymes 11/19/17 11/19/17 11/19/17 Range/Units 04:58 04:58 10:27 AST 16 (14-36) U/L CK-MB (CK-2) 0.8 1.5 (0.0-2.4) ng/mL Troponin I 0.045 H* 0.326 H* (0.000-0.034) ng/mL Coagulation 11/19/17 Range/Units 04:58 PT 17.7 H (9.0-12.0) sec APTT 23.1 (22.0-30.0) sec CBC 11/19/17 Range/Units 04:58 WBC 3.6 L (3.8-10.6) k/uL RBC 3.73 L (3.80-5.40) m/uL Hgb 11.2 L (11.4-16.0) gm/dL Hct 34.4 (34.0-46.0) % Plt Count 112 L (150-450) k/uL Comprehensive Metabolic Panel 11/19/17 Range/Units 04:58 Sodium 140 (137-145) mmol/L Potassium 3.9 (3.5-5.1) mmol/L Chloride 102 (98-107) mmol/L Carbon Dioxide 27 (22-30) mmol/L BUN 26 H (7-17) mg/dL Creatinine 0.92 (0.52-1.04) mg/dL Glucose 108 H (74-99) mg/dL Calcium 10.4 H (8.4-10.2) mg/dL AST 16 (14-36) U/L ALT 18 (9-52) U/L Alkaline Phosphatase 101 (38-126) U/L Total Protein 7.5 (6.3-8.2) g/dL Albumin 3.8 (3.5-5.0) g/dL Current Medications Generic Name Dose Route Start Last Admin Trade Name Freq PRN Reason Stop Dose Admin Amlodipine Besylate 5 mg 11/19/17 09:00 11/19/17 09:03 Norvasc PO 5 mg DAILY LAURY Administration Aspirin 325 mg 11/20/17 09:00 Aspirin PO DAILY [facility] Diphenoxylate HCl/Atropine 1 each 11/19/17 09:30 11/19/17 09:32 Lomotil PO 1 each DAILY LAURY Administration Furosemide 20 mg 11/19/17 09:00 11/19/17 09:02 Lasix PO 20 mg BID@0900,1600 LAURY Administration Sodium Chloride 1,000 mls @ 75 mls/hr 11/19/17 05:25 11/19/17 05:48 Saline 0.9% IV 11/19/17 18:44 75 mls/hr .[id number] STA Administration Isosorbide Mononitrate 30 mg 11/19/17 09:00 11/19/17 09:02 Imdur PO 30 mg DAILY [facility] Administration Levothyroxine Sodium 100 mcg 11/19/17 08:00 11/19/17 09:02 Synthroid PO 100 mcg 0630 [facility] Administration Metoprolol Succinate 100 mg 11/19/17 09:00 11/19/17 09:02 Toprol Xl PO 100 mg DAILY LAURY Administration Nitroglycerin 0.4 mg 11/19/17 06:37 Nitrostat SUBLINGUAL Q5M PRN Chest Pain Patient's Own Med ( 5 mg 11/19/17 20:00 Lenalidomide [ PO Revlimid] 5 Mg) DAILY@1999 [facility] Ondansetron HCl 4 mg 11/19/17 06:40 Zofran PO Q6HR PRN Nausea Potassium Chloride 10 meq 11/19/17 09:00 11/19/17 09:02 K-Dur 10 PO 10 meq DAILY LAURY Administration Warfarin Sodium 5 mg 11/19/17 21:00 Coumadin PO [facility] Intake and Output 11/18/17 11/19/17 11/19/17 22:59 06:59 14:59 Output Total 700 Balance -700 Output: Urine 700 Other: Weight 70.76 kg 11/19/17 04:58 11/19/17 04:58
[2017-11-19] MEDS ORDERED: HEPARIN SOD,PORK IN 0.45% NACL 25,000 UNIT in 0.45% NACL 1 500ML.BAG IV SCH (15:15)
[2017-11-19] MEDS ORDERED: RX INFO: IV CONTRAST WAS GIVEN 1 EACH MISC MISCELLANE PRN (16:22)
[2017-11-19] MEDS ORDERED: FAMOTIDINE 20 MG/2 ML VIAL IV STA (16:24)
[2017-11-19] MEDS ORDERED: diphenhydrAMINE 50 MG/ML 1 ML VIAL IVP STA (16:24)
--- NOTE | 2017-11-19 16:51 | P.CRDCN ---
History of Present Illness Consult date: 11/19/17 Requesting physician: Calvin Iqbal Consult reason: shortness of breath Chief complaint: Shortness of breath History of present illness: This is a pleasant 82-year-old female who follows regularly with Dr. Millan in the office. 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 Most recent echocardiogram with Doppler study was performed in July 2017 which revealed an ejection fraction of 65-70%. Patient also has diagnosis of myelodysplasia for which she underwent chemotherapy. Patient has anemia from her myelodysplasia. She presents to the hospital on this occasion with symptoms of moderate to severe shortness of breath. Patient does state that she had an episode of chest discomfort in the right chest area, she states that it worsened with deep breathing. She also became diaphoretic at times. The pressure on arrival 174/ 72, heart rate in the 70s, 93% on 2 L of oxygen. White blood cell count 3.6, hemoglobin 11.2, platelet count 112. INR 1.9, d-dimer 17.8, sodium 140, potassium 3.9, BUN 26, creatinine 0.9. Troponins 0.045, 0.326. Calcium 10.4. EKG shows atrial fibrillation with a left bundle-branch block pattern. Chest x- ray shows small bilateral pleural effusions with adjacent atelectasis. Patient was recommended to undergo VQ scan, she refused however because she is unable to lie flat. CT of the chest has been ordered not yet performed. We will also request a BNP level. Patient denies any chest pain at present. 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 Pylori, frequent diarrhea, chronic anemia, bronchitis, pneumonias, macular degeneration bilaterally, syncopal episodes. Last Myocardial Infarction Date:: UNKNOWN History of Any Multi-Drug Resistant Organisms: None Reported Past Surgical History: Appendectomy, Cholecystectomy, Heart Catheterization, Hysterectomy Additional Past Surgical History / Comment(s): 09/2015 thoracic aortic aneurysm stent, 07/2017 thoracic aortic aneurysm stent leaking and another stent placed as well as abdominal aortic aneurysm stented, cardiac caths, green field filter , bone marrow aspiration, exploratory lap for adhesions, EGD/colonoscopies with benign polypectomy, hemorrhoidectomy, R leg vein stripping. Past Anesthesia/Blood Transfusion Reactions: No Reported Reaction Smoking Status: Never smoker - Past Family History Father Family Medical History: Coronary Artery Disease (CAD), Myocardial Infarction ([place] ) Mother Family Medical History: COPD, Coronary Artery Disease (CAD), Deep Vein Thrombosis (DVT) Brother(s) Family Medical History: Coronary Artery Disease (CAD), Myocardial Infarction ([place] ) Sister(s) Family Medical History: Cancer Medications and Allergies Home Medications Medication Instructions Recorded Confirmed Type amLODIPine BESYLATE [Amlodipine 5 mg PO DAILY 09/30/15 11/19/17 History Besylate] Potassium Chloride [Klor-Con 10] 10 meq PO DAILY 07/20/16 11/19/17 History Levothyroxine Sodium [Synthroid] 100 mcg PO DAILY 09/10/16 11/19/17 History Metoprolol Succinate [Toprol XL] 100 mg PO DAILY 09/10/16 11/19/17 History Furosemide [Lasix] 20 mg PO BID@0900,1600 #60 tab 09/14/16 11/19/17 Rx Isosorbide Mononitrate ER [Imdur] 30 mg PO DAILY 08/04/17 11/19/17 History Lenalidomide [Revlimid] 5 mg PO DAILY@199908/04/17 11/19/17 History Ondansetron [Zofran] 4 mg PO Q6HR PRN 08/04/17 11/19/17 History Warfarin [Coumadin] 5 mg PO HS 08/04/17 11/19/17 History Diphenox-Atrop 2.5-0.025 mg 1 tab PO DAILY 11/19/17 11/19/17 History [Lomotil] Allergies Allergy/AdvReac Type Severity Reaction Status Date / Time black pepper Allergy Severe Anaphylaxis Verified 11/19/17 07:20 peanut Allergy Severe Anaphylaxis Verified 11/19/17 07:20 atropine [From ] Allergy Unknown Verified 11/19/17 07:20 chocolate flavor Allergy Itching Verified 11/19/17 07:20 Egg Derived Allergy Itching Verified 11/19/17 07:20 hyoscyamine [From ] Allergy Unknown Verified 11/19/17 07:20 Iodinated Contrast- Oral and Allergy Swelling Verified 11/19/17 07:20 IV Dye [Iodinated Contrast Media - IV Dye] phenobarbital [From ] Allergy Unknown Verified 11/19/17 07:20 propoxyphene [From Darvon] Allergy Unknown Verified 11/19/17 07:20 scopolamine [From ] Allergy Unknown Verified 11/19/17 07:20 Sulfa (Sulfonamide Allergy Rash/Hives Verified 11/19/17 07:20 Antibiotics) venom-honey bee Allergy Unknown Verified 11/19/17 07:20 [bee venom (honey bee)] acetaminophen [From [place]] AdvReac Hallucinati Verified 11/19/17 07:20 ons belladonna alkaloids AdvReac Unknown Verified 11/19/17 07:20 hydrocodone [From [place]] AdvReac Hallucinati Verified 11/19/17 07:20 ons simvastatin [From Zocor] AdvReac WEAKNESS Verified 11/19/17 07:20 SMELT Allergy Itching Uncoded 08/04/17 21:08 Physical Exam Vitals: Vital Signs Temp Pulse Resp BP Pulse Ox 11/19/17 15:33 77 18 158/69 98 11/19/17 14:01 97.4 F L 75 18 160/69 98 11/19/17 13:00 18 11/19/17 12:00 98.0 F 72 18 131/86 99 11/19/17 11:20 76 18 143/72 100 11/19/17 09:48 88 18 174/97 98 11/19/17 08:39 106 H 20 172/74 100 11/19/17 06:42 96 18 165/71 96 11/19/17 05:56 91 03/16/18 05:39 88 11/19/17 05:02 20 11/19/17 04:55 98.1 F 75 20 174/73 93 L Intake and Output 11/19/17 11/19/17 11/19/17 06:59 14:59 22:59 Output Total 700 Balance -700 Output: Urine 700 Other: Weight 70.76 kg PHYSICAL EXAMINATION: HEENT: Head is atraumatic, normocephalic. Pupils equal, round. Neck is supple. There is elevated jugular venous pressure. HEART EXAMINATION: Heart S1 and S2 irregularly irregular a systolic ejection murmur is heard CHEST EXAMINATION: Lungs reveal decreased air exchange throughout with mild diminished air entry to the bases ABDOMEN: Soft, nontender. Bowel sounds are heard. No organomegaly noted. EXTREMITIES: 2+ peripheral pulses with trace evidence of peripheral edema and no calf tenderness noted. NEUROLOGIC patient is awake, alert and oriented -3. . Results 11/19/17 04:58 11/19/17 04:58 Cardiac Enzymes 11/19/17 11/19/17 11/19/17 Range/Units 04:58 04:58 10:27 AST 16 (14-36) U/L CK-MB (CK-2) 0.8 1.5 (0.0-2.4) ng/mL Troponin I 0.045 H* 0.326 H* (0.000-0.034) ng/mL Coagulation 11/19/17 Range/Units 04:58 PT 17.7 H (9.0-12.0) sec APTT 23.1 (22.0-30.0) sec CBC 11/19/17 Range/Units 04:58 WBC 3.6 L (3.8-10.6) k/uL RBC 3.73 L (3.80-5.40) m/uL Hgb 11.2 L (11.4-16.0) gm/dL Hct 34.4 (34.0-46.0) % Plt Count 112 L (150-450) k/uL Comprehensive Metabolic Panel 11/19/17 Range/Units 04:58 Sodium 140 (137-145) mmol/L Potassium 3.9 (3.5-5.1) mmol/L Chloride 102 (98-107) mmol/L Carbon Dioxide 27 (22-30) mmol/L BUN 26 H (7-17) mg/dL Creatinine 0.92 (0.52-1.04) mg/dL Glucose 108 H (74-99) mg/dL Calcium 10.4 H (8.4-10.2) mg/dL AST 16 (14-36) U/L ALT 18 (9-52) U/L Alkaline Phosphatase 101 (38-126) U/L Total Protein 7.5 (6.3-8.2) g/dL Albumin 3.8 (3.5-5.0) g/dL Current Medications Generic Name Dose Route Start Last Admin Trade Name Freq PRN Reason Stop Dose Admin Amlodipine Besylate 5 mg 11/19/17 09:00 11/19/17 09:03 Norvasc PO 5 mg DAILY LAURY Administration Aspirin 325 mg 11/20/17 09:00 Aspirin PO DAILY LAURY Diphenoxylate HCl/Atropine 1 each 11/19/17 09:30 11/19/17 09:32 Lomotil PO 1 each DAILY LAURY Administration Furosemide 20 mg 11/19/17 09:00 11/19/17 09:02 Lasix PO 20 mg BID@0900,1600 LAURY Administration Sodium Chloride 1,000 mls @ 75 mls/hr 11/19/17 05:25 11/19/17 05:48 Saline 0.9% IV 11/19/17 18:44 75 mls/hr .[id number] STA Administration Heparin Sodium/Sodium Chloride 500 mls @ 25.47 mls/hr 11/19/17 15:15 15:31 25,000 unit/ Sodium Chloride IV 18 units/kg/hr .[id number] LAURY 25.47 mls/hr Protocol Administration 18 UNITS/KG/HR Isosorbide Mononitrate 30 mg 11/19/17 09:00 11/19/17 09:02 Imdur PO 30 mg DAILY LAURY Administration Levothyroxine Sodium 100 mcg 11/19/17 08:00 11/19/17 09:02 Synthroid PO 100 mcg 0630 LAURY Administration Metoprolol Succinate 100 mg 11/19/17 09:00 11/19/17 09:02 Toprol Xl PO 100 mg DAILY LAURY Administration Miscellaneous Information 1 each 11/19/17 16:22 Rx Info: Iv Contrast Was Given MISCELLANE 11/21/17 16:23 DAILY PRN Per Protocol Nitroglycerin 0.4 mg 11/19/17 06:37 Nitrostat SUBLINGUAL Q5M PRN Chest Pain Patient's Own Med ( 5 mg 11/19/17 20:00 Lenalidomide [ PO Revlimid] 5 Mg) DAILY@2000 LAURY Ondansetron HCl 4 mg 11/19/17 06:40 Zofran PO Q6HR PRN Nausea Potassium Chloride 10 meq 11/19/17 09:00 11/19/17 09:02 K-Dur 10 PO 10 meq DAILY LAURY Administration Warfarin Sodium 5 mg 11/19/17 21:00 Coumadin PO HS LAURY Intake and Output 11/19/17 11/19/17 11/19/17 06:59 14:59 22:59 Output Total 700 Balance -700 Output: Urine 700 Other: Weight 70.76 kg 11/19/17 04:58 11/19/17 04:58 EKG Interpretations (text) EKG shows atrial fibrillation with a left bundle-branch block pattern Assessment and Plan Plan: Assessment and plan #1 symptoms of progressively worsening shortness of breath, associated right- sided chest discomfort which worsens with breathing. Elevated d-dimer at 17. CT of the chest requested to rule out pulmonary embolism. EKG shows a normal sinus rhythm with a left bundle-branch block pattern and nonspecific ST-T wave changes. Troponins 0.045, 0.326. #2 hypertension #3 hyperlipidemia #4 peripheral vascular disease #5 family history of premature coronary artery disease #6 coronary artery disease with moderate triple-vessel disease as documented by heart catheterization in 2012 #7 mildly disorder, status post chemotherapy #8 thrombocytopenia secondary to myelodysplastic disorder #9 thoracic aortic aneurysm status post endograft repair #10 chronic persistent atrial fibrillation on Coumadin for anticoagulation, INR subtherapeutic on admission at 1.9. Plan Echocardiogram with Doppler study has been requested. We will also start the patient on IV heparin. CTA of the chest will be performed to rule out pulmonary embolism. If the pulmonary embolism is ruled out, patient will require cardiac catheterization to rule out progression of underlying coronary artery disease. BNP level will also be obtained. Further recommendations will be based on these findings and the patient's clinical course. DNP note has been reviewed, I agree with a documented findings and plan of care. Patient was seen and examined.
[2017-11-19] MEDS ORDERED: diphenhydrAMINE 50 MG/ML 1 ML VIAL ONE (16:52)
[2017-11-19] MEDS: PATIENT'S OWN MED (Lenalidomide [Revlimid] 5 MG) PO SCH (16:52)
--- NOTE | 2017-11-19 17:24 | P.CNPUL ---
History of Present Illness Consult date: 11/19/17 Requesting physician: Calvin Iqbal Reason for consult: chest pain Chief complaint: Right-sided chest pain History of present illness: This is a very pleasant 82-year-old female patient of Dr. Kay, who presented to the emergency department on earlier today with complaints of right- sided chest pain under the right breast, radiating to the back that started approximately 2:00 this morning. She describes the pain as intermittent, at times sharp, she becomes more short of breath with that. The pain seems to be reproducible upon palpating the right chest. She was diagnosed with myelodysplastic syndrome after bone marrow aspiration, and initiated on Revlimid in March [address] Coleman. 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 Does not wear oxygen at home, does have a Ventolin rescue inhaler. Her past medical history is also positive for history of DVTs, and pulmonary embolisms first diagnosed in 1954 after the of her first daughter. She had subsequent episodes of DVTs after surgical procedures, had a IVC placed, and has been on Coumadin for a long time. Dr. Kay is currently dosing her Coumadin. Her current INR is 1.9. Today her right-sided chest pain seems to be musculoskeletal in nature. Based on her ALLERGY to IV dye a CT angiogram has not been performed. Seen in consultation on the selective care unit. She is awake and alert in no acute distress. She does have some ongoing right-sided chest pain that again is reproducible with palpation. Mainly musculoskeletal in nature. She has been hemodynamically stable. Maintaining O2 saturations up to the 100% on 2 L/m per nasal cannula. She's afebrile. Chest x-ray shows small bilateral pleural effusions with adjacent atelectasis. Vascular stent noted in the descending thoracic aorta. Previous echocardiogram revealed an ejection fraction of 65-70%. Troponin 0.045. 0.326. White count 3.6. Hemoglobin 11.2. Platelet count 112,000. INR 1.9. D-dimer 17.89. Creatinine 0.92. Review of Systems 14 point review of system was conducted. All negative other than as mentioned in the HPI. Past Medical History Past Medical History: Atrial Fibrillation, Blood Disorder, Coronary Artery Disease (CAD), Chest Pain / Angina, Heart Failure, Deep Vein Thrombosis (DVT), Eye Disorder, GERD/Reflux, Hyperlipidemia, Hypertension, Myocardial Infarction ( [place]), Osteoarthritis (OA), Pneumonia, Syncope, Thyroid Disorder, Vascular Disorder Additional Past Medical History / Comment(s): Pt recently diagnosed with Afib, MDS diagnosed in 2016 and takes oral chemo, DVTs multiple in R leg and once in L arm, PEs-showering pulmonary embolisms bilateral lungs, chronic thrombophlebitis, coronary blockages, leaky cardiac valves, AAA thoracic and abdominal both stented, duodenal ulcer, hiatal hernia, diverticular dx, colitis , IBS, H. Pylori, frequent diarrhea, chronic anemia, bronchitis, pneumonias, macular degeneration bilaterally, syncopal episodes. Last Myocardial Infarction Date:: UNKNOWN History of Any Multi-Drug Resistant Organisms: None Reported Past Surgical History: Appendectomy, Cholecystectomy, Heart Catheterization, Hysterectomy Additional Past Surgical History / Comment(s): 09/2015 thoracic aortic aneurysm stent, 07/2017 thoracic aortic aneurysm stent leaking and another stent placed as well as abdominal aortic aneurysm stented, cardiac caths, green field filter , bone marrow aspiration, exploratory lap for adhesions, EGD/colonoscopies with benign polypectomy, hemorrhoidectomy, R leg vein stripping. Past Anesthesia/Blood Transfusion Reactions: No Reported Reaction Smoking Status: Never smoker - Past Family History Father Family Medical History: Coronary Artery Disease (CAD), Myocardial Infarction ([place] ) Mother Family Medical History: COPD, Coronary Artery Disease (CAD), Deep Vein Thrombosis (DVT) Brother(s) Family Medical History: Coronary Artery Disease (CAD), Myocardial Infarction ([place] ) Sister(s) Family Medical History: Cancer Medications and Allergies Home Medications Medication Instructions Recorded Confirmed Type amLODIPine BESYLATE [Amlodipine 5 mg PO DAILY 09/30/15 11/19/17 History Besylate] Potassium Chloride [Klor-Con 10] 10 meq PO DAILY 07/20/16 11/19/17 History Levothyroxine Sodium [Synthroid] 100 mcg PO DAILY 09/10/16 11/19/17 History Metoprolol Succinate [Toprol XL] 100 mg PO DAILY 09/10/16 11/19/17 History Furosemide [Lasix] 20 mg PO BID@0900,1600 #60 tab 09/14/16 11/19/17 Rx Isosorbide Mononitrate ER [Imdur] 30 mg PO DAILY 08/04/17 11/19/17 History Lenalidomide [Revlimid] 5 mg PO DAILY@199908/04/17 11/19/17 History Ondansetron [Zofran] 4 mg PO Q6HR PRN 08/04/17 11/19/17 History Warfarin [Coumadin] 5 mg PO HS 08/04/17 11/19/17 History Diphenox-Atrop 2.5-0.025 mg 1 tab PO DAILY 11/19/17 11/19/17 History [Lomotil] Allergies Allergy/AdvReac Type Severity Reaction Status Date / Time black pepper Allergy Severe Anaphylaxis Verified 11/19/17 07:20 peanut Allergy Severe Anaphylaxis Verified 11/19/17 07:20 atropine [From ] Allergy Unknown Verified 11/19/17 07:20 chocolate flavor Allergy Itching Verified 11/19/17 07:20 Egg Derived Allergy Itching Verified 11/19/17 07:20 hyoscyamine [From ] Allergy Unknown Verified 11/19/17 07:20 Iodinated Contrast- Oral and Allergy Swelling Verified 11/19/17 07:20 IV Dye [Iodinated Contrast Media - IV Dye] phenobarbital [From ] Allergy Unknown Verified 11/19/17 07:20 propoxyphene [From Darvon] Allergy Unknown Verified 11/19/17 07:20 scopolamine [From ] Allergy Unknown Verified 11/19/17 07:20 Sulfa (Sulfonamide Allergy Rash/Hives Verified 11/19/17 07:20 Antibiotics) venom-honey bee Allergy Unknown Verified 11/19/17 07:20 [bee venom (honey bee)] acetaminophen [From Skipwith] AdvReac Hallucinati Verified 11/19/17 07:20 ons belladonna alkaloids AdvReac Unknown Verified 11/19/17 07:20 hydrocodone [From Skipwith] AdvReac Hallucinati Verified 11/19/17 07:20 ons simvastatin [From Zocor] AdvReac WEAKNESS Verified 11/19/17 07:20 SMELT Allergy Itching Uncoded 08/04/17 21:08 Physical Exam Vitals: Vital Signs Temp Pulse Resp BP Pulse Ox 11/19/17 15:33 77 18 158/69 98 11/19/17 14:01 97.4 F L 75 18 160/69 98 11/19/17 13:00 18 11/19/17 12:00 98.0 F 72 18 131/86 99 11/19/17 11:20 76 18 143/72 100 11/19/17 09:48 88 18 174/97 98 11/19/17 08:39 106 H 20 172/74 100 11/19/17 06:42 96 18 165/71 96 11/19/17 05:56 91 11/19/17 05:39 88 11/19/17 05:02 20 11/19/17 04:55 98.1 F 75 20 174/73 93 L Intake and Output 11/19/17 11/19/17 11/19/17 06:59 14:59 22:59 Output Total 700 Balance -700 Output: Urine 700 Other: Weight 70.76 kg GENERAL EXAM: Alert, fairly comfortable in no apparent distress. We'll having some right-sided chest discomfort. HEAD: Normocephalic. EYES: Normal reaction of pupils, equal size. NOSE: Clear with pink turbinates. THROAT: No erythema or exudates. NECK: No masses, no JVD. CHEST: No chest wall deformity. Pain on palpation more so on the right. LUNGS: Equal air entry with no crackles, wheeze, rhonchi or dullness. CVS: S1 and S2 normal with no audible murmur, irregular rhythm. ABDOMEN: No hepatosplenomegaly, normal bowel sounds, no guarding or rigidity. SPINE: No scoliosis or deformity SKIN: No rashes CENTRAL NERVOUS SYSTEM: No focal deficits, tone is normal in all 4 extremities. EXTREMITIES: There is no peripheral edema. No clubbing, no cyanosis. Peripheral pulses are intact. Results - Laboratory Findings CBC and BMP: 11/19/17 04:58 11/19/17 04:58 PT/INR, D-dimer PT 17.7 sec (9.0-12.0) H 11/19/17 04:58 INR 1.9 (<1.2) H 11/19/17 04:58 D-Dimer 17.89 mg/L FEU (<0.60) H 11/19/17 04:58 Abnormal lab findings: Abnormal Labs 11/19/17 11/19/17 11/19/17 04:58 04:58 04:58 WBC 3.6 L RBC 3.73 L Hgb 11.2 L RDW 15.9 H Plt Count 112 L PT INR D-Dimer BUN 26 H Glucose 108 H Calcium 10.4 H Troponin I 0.045 H* 11/19/17 11/19/17 04:58 10:27 WBC RBC Hgb RDW Plt Count PT 17.7 H INR 1.9 H D-Dimer 17.89 H BUN Glucose Calcium Troponin I 0.326 H* - Diagnostic Findings Chest x-ray: image reviewed Assessment and Plan Assessment: Impression: #1 Right-sided chest discomfort with some reproducibility and chest wall discomfort. Elevated d-dimer and CT angiogram pending. #2 Troponin leak. #3 Recent admission in July 2017 for similar symptoms. #4 History of descending thoracic aneurysm stent placement. #5 Coronary artery disease. #6 Hypertension. #7 Hypothyroidism. #8 Myelodysplastic disorder, treated with Revlimid. #9 Chronic atrial fibrillation, anticoagulated with warfarin, INR 1.9. #10 Previous history of DVTs with IVC placement. Plan: The patient was seen and evaluated by Dr. Kowalski. Her chest x-ray and labs were reviewed. Most of her discomfort is reproducible. She had a similar presentation in July 2017. We will obtain a CT angiogram once pretreated for her ALLERGY. Continue heparin for now until therapeutic on her warfarin. Cardiology has been consulted. We will continue to follow and make further recommendations based on her clinical status. I, the cosigning physician, performed a history & physical examination of the patient. Lungs sounds of some crackles in the bilateral posterior bases.. Maintaining good O2 saturations in the 90s on 2 L/m per nasal cannular. I discussed the assessment and plan of care with my nurse practitioner, Nga Pennington. I attest to the above note as dictated by her. Time with Patient: Greater than 30
[2017-11-19 17:49] LABS: Creatine Kinase MB 1.3 ng/mL (0.0-2.4)
[2017-11-19 17:52] LABS: Troponin I 0.298 ng/mL (0.000-0.034)
--- NOTE | 2017-11-19 20:11 | CT ---
EXAMINATION TYPE: CT angio chest with contrast and with 3-D reconstruction renderings DATE OF EXAM: 11/19/2017 6:43 PM COMPARISON: CT 05/29/2013 HISTORY: SOB. CT DLP: 374.2 mGycm Automated exposure control for dose reduction was used. CONTRAST: CTA scan of the thorax is performed with IV Contrast, patient injected with 80ml mL of Visi paque 320, pulmonary embolism protocol. 3-D reconstructions were rendered.. FINDINGS: AIRWAYS AND LUNGS AND PLEURAL SPACES: The lungs are grossly clear, there is no concerning parenchymal mass or nodule identified. There is a small right pleural effusion. No left pleural effusion. No p neumothorax. The tracheobronchial tree is patent. MEDIASTINUM: Aortic stent noted, but the intravenous contrast opacifies the right heart and pulmonary arterial tree without opacifying the left heart and aorta. There is satisfactory enhancement of the pulmonary artery and its branches; there is no CT evidence for pulmonary embolism. There are no grea ter than 1 cm hilar or mediastinal lymph nodes. No pericardial effusion is seen. Prominent multifoca l coronary calcifications are noted. Mild cardiomegaly. OTHER: No additional significant abnormality is seen. IMPRESSION: 1. NEGATIVE FOR PULMONARY EMBOLISM. 2. SMALL RIGHT PLEURAL EFFUSION. 3. CORONARY CALCIFICATIONS. 4. UNOPACIFIED DESCENDING AORTIC ANEURYSM WITH AORTIC STENT.
--- NOTE | 2017-11-19 20:22 | ECHOF ---
Referral Reason:Lv fx, trops elevated, elevated d-dimer MEASUREMENTS -------- HEIGHT: 152.4 cm WEIGHT: 70.8 kg BP: 161/70 RVIDd: 2.7 cm (< 3.3) IVSd: 1.7 cm (0.6 - 1.1) LVIDd: 3.6 cm (3.9 - 5.3) LVPWd: 1.5 cm (0.6 - 1.1) IVSs: 1.9 cm LVIDs: 2.6 cm LVPWs: 1.8 cm LAESV Index (A-L): 27.93 ml/m Ao Diam: 2.4 cm (2.0 - 3.7) AV Cusp: 1.3 cm (1.5 - 2.6) LA Diam: 3.7 cm (2.7 - 3.8) MV EXCURSION: 11.063 mm (> 18.000) MV EF SLOPE: 29 mm/s (70 - 150) EPSS: 0.4 cm MV E Delon: 1.65 m/s MV DecT: 222 ms MV A Delon: 0.61 m/s MV E/A Ratio: 2.72 RAP: 5.00 mmHg RVSP: 26.15 mmHg FINDINGS -------- Atrial fibrillation. This was a technically good study. The left ventricular size is normal. There is severe concentric left ventricular hypertrophy. Ove rall left ventricular systolic function is mildly impaired with, an EF between 45 - 50 %. Septal wa ll motion is delayed, and consistent with conduction delay/bundle branch block. The right ventricle is normal in size. The left atrium is normal in size. The right atrium is normal in size. Aortic valve is trileaflet and is mildly thickened. The mitral valve leaflets are mildly thickened. Mild mitral annular calcification present. Modera te mitral regurgitation is present. Mild tricuspid regurgitation present. The right ventricular systolic pressure, as measured by Doppl er, is 26.15mmHg. Pulmonic valve appears structurally normal. The aortic root size is normal. The pericardium is normal. CONCLUSIONS -------- 1. Atrial fibrillation. 2. This was a technically good study. 3. The left ventricular size is normal. 4. There is severe concentric left ventricular hypertrophy. 5. Septal wall motion is delayed, and consistent with conduction delay/bundle branch block. 6. The right ventricle is normal in size. 7. The left atrium is normal in size. 8. The right atrium is normal in size. 9. Aortic valve is trileaflet and is mildly thickened. 10. The mitral valve leaflets are mildly thickened. 11. Mild mitral annular calcification present. 12. Moderate mitral regurgitation is present. 13. Mild tricuspid regurgitation present. 14. The right ventricular systolic pressure, as measured by Doppler, is 26.15mmHg. 15. Pulmonic valve appears structurally normal. 16. The aortic root size is normal. 17. The pericardium is normal. P[employer] SETTER: Natalie Carolina RDCS
[2017-11-19 20:34] LABS: Appearance,Urine Clear (Clear); Bilirubin,Urine Negative (Negative); Blood,Urine Trace (Negative); Color,Urine Light Yellow; Glucose,Urine (UA) Trace (Negative); Ketones,Urine Negative (Negative); Leukocyte Esterase,Urine Negative (Negative); Mucus,Urine Rare /hpf; Nitrite,Urine Negative (Negative); PH, Urine 5.5 (5.0-8.0); Protein,Urine Trace (Negative); RBC,Urine 1 /hpf (0-5); Specific Gravity,Urine 1.017 (1.001-1.035); Squamous Epithelial Cell,Urine 1 /hpf (0-4); Urobilinogen,Urine <2.0 mg/dL (<2.0)
[2017-11-19] MEDS: WARFARIN 5 MG TAB PO SCH (20:35)
--- NOTE | 2017-11-19 22:25 | HP ---
HISTORY AND PHYSICAL CHIEF COMPLAINT: Shortness of breath. HISTORY OF PRESENT ILLNESS: This 82-year-old woman with a past medical history of multiple medical problems, such as atrial fibrillation, history of CAD, history of chest pain, CHF, DVT, GERD, hypertension, hyperlipidemia, history of pneumonia, history of syncope, being followed by Dr. Kay in the outpatient setting, was complaining of right-sided chest pain under the breast. Apparently patient last night woke up around 2 a.m. and was complaining of significant shortness of breath, and patient was taken to [facility] and admitted for further evaluation and treatment. There is no history of any fever or rigors. No history of headache, loss of consciousness, seizures. Multiple evaluations were done after the admission. The patient had a thoracic descending and aortic aneurysm. The patient also had stenting done. A 2D echo with Doppler was done. Patient was unable to lie down flat. Two-D echo with Doppler showed an ejection fraction of about 45% to 50%. The chest x-ray films were unable to be reviewed. They showed small bilateral pleural effusion and adjacent atelectasis. The labs showed WBC 3.6, hemoglobin 11.2, platelets 120, indicating mild pancytopenia. The calcium is 10.4. Troponin was elevated up to 0.298 and D-dimer was also elevated up to 17.89. Patient subsequently also had a chest CTA which was negative for pulmonary embolism; small right pleural effusion, coronary calcifications and unopacified descending aortic aneurysm with an aortic stent were also noted. Patient was also seen by Pulmonary Critical Care Service. The patient also had a recent admission last July 2017. The possibility of pleurisy was noted at that time. There is no history of any fever, rigors, chills. No history of headache, loss of consciousness, seizures. During the last admission, transfer to [facility] regarding the stent was considered, but the family did not want the transfer and patient subsequently improved with a conservative line of management. There is no history of any fever, rigor or chills. No history of headache, loss of consciousness, seizures. PAST MEDICAL HISTORY: 1. History of atrial fibrillation. 2. History of CAD. 3. CHF. 4. DVT. 5. GERD. 6. Hypertension. 7. Hyperlipidemia. 8. History of myocardial infarction. 9. History of stent. HOME MEDICATIONS: 1. Norvasc 5 mg p.o. daily. 2. Coumadin 5 mg p.o. at bedtime. 3. Klor-Con 10 mEq p.o. daily. 4. Zofran 4 mg q.6 p.r.n. 5. Toprol XL 100 mg p.o. daily. 6. Synthroid 100 mcg p.o. daily. 7. Revlimid 5 mg p.o. daily. 8. Imdur 30 mg p.o. daily. 9. Lasix 20 mg p.o. b.i.d. 10.Lomotil 2.5 mg one p.o. daily. ALLERGIES: MULTIPLE ALLERGIES, INCLUDIN. BLACK PEPPER .. 2. PEANUTS. 3. ATROPINE. 4. CHOCOLATE FLAVOR. 5. EGG. 6. HYOSCYAMINE. 7. IODINATED CONTRAST DYES. 8. PHENOBARBITAL. 9. PROPOXYPHENE. 10.SCOPOLAMINE. 11.SULFA. 12.HONEY BEE VENOM. 13.BELLADONNA. 14.HYDROCODONE. 15.SIMVASTATIN. 16.SMELT. FAMILY HISTORY: History of coronary artery disease and myocardial infarction in the family. SOCIAL HISTORY: No history of smoking. No history of alcohol intake. REVIEW OF SYSTEMS: ENT: No diminished hearing. No diminished vision. CARDIOVASCULAR SYSTEM: As mentioned earlier. RESPIRATORY SYSTEM: As mentioned earlier. GI: No nausea, vomiting. : No dysuria or retention. NERVOUS SYSTEM: No numbness, weakness. ALLERGY/IMMUNOLOGY: No asthma, hayfever. MUSCULOSKELETAL: As mentioned earlier. HEMATOLOGY/ONCOLOGY: No history of anemia. ENDOCRINE: No history of diabetes, hypothyroidism. CONSTITUTIONAL: As mentioned earlier. DERMATOLOGY: Negative. RHEUMATOLOGY: Negative. PSYCHIATRY: As mentioned earlier. PHYSICAL EXAMINATION: Alert, oriented x3. Pulse is 89, blood pressure 156/77, respiration 16, temperature 96.9, pulse ox 100% on 2 L. HEENT: Conjunctivae normal. Oral mucosa moist. NECK: No jugular venous distention. No carotid bruit. No lymph node enlargement. CARDIOVASCULAR SYSTEM: S1, S2 muffled. Ejection systolic murmur. No S3. No S4. RESPIRATORY SYSTEM: Breath sounds diminished at the bases. A few scattered rhonchi and basal crackles. ABDOMEN: Soft, non-tender. No mass palpable. LEGS: Right leg swelling present. NERVOUS SYSTEM: Higher functions as mentioned earlier. Moves all 4 limbs. No focal motor or sensory deficits. LYMPHATICS: No lymph node palpable in neck, axillae or groin. SKIN: No ulcer, rash, bleeding. LABS: WBC 3.6, hemoglobin 11.2. INR is 1.9 and calcium is 10.4. Troponin is noted. ASSESSMENT: 1. Right-sided chest pain and shortness of breath for evaluation; possibly congestive heart failure, acute exacerbation, with acute on chronic systolic dysfunction, ejection fraction 45% to 50%. 2. Pulmonary embolism unlikely. 3. History of descending aortic aneurysm and stenting. 4. Anemia. 5. Mild pancytopenia. 6. Troponin 0.326. Rule out acute [id number]-elevation myocardial infarction. 7. History of atrial fibrillation. 8. History coronary artery disease. 9. History of congestive heart failure. 10.History of deep venous thrombosis. 11.Gastroesophageal reflux disease. 12.Hyperlipidemia. 13.Hypertension. 14.History of myocardial infarction. 15.History of degenerative joint disease. 16.History of hypothyroidism. 17.Right leg swelling. 18.History of MDS, on oral chemo. 19.History of pulmonary emboli. 20.History of leaky cardiac valves. 21.Abdominal aortic aneurysm and thoracic aortic aneurysm, stented. 22.History of duodenal ulcer. 23.History of irritable bowel syndrome. 24.History of Helicobacter pylori. 25.History of cardiac catheterization. 26.History of stent leaking and repeat procedure. RECOMMENDATIONS AND DISCUSSION: In this 82-year-old woman who presented with multiple complex medical issues, at this time I recommend continuing the current medications, continue symptomatic treatment. I would continue with anticoagulation and closely follow with Cardiology, Pulmonology and Vascular Surgery. Resume the rest of the medications. Symptomatic treatment also will be provided. Overall prognosis is extremely guarded because of multiple complex medical issues and medical/surgical issues as detailed above. Further recommendations to follow. Discussed with the patient. MMODL / IJN: [id number] /
[2017-11-20] MEDS: LEVOTHYROXINE 100 MCG TAB PO SCH (06:12)
[2017-11-20 06:13] LABS: INR 2.2 (<1.2); Prothrombin Time 19.6 sec (9.0-12.0)
[2017-11-20 06:18] LABS: Anisocytosis Slight; Basophils % (A) 0 %; Eosinophils % (A) 0 %; HCT 32.5 % (34.0-46.0); Hypochromasia Slight; Lymphocytes # (A) 0.3 k/uL (1.0-4.8); Lymphocytes % (A) 9 %; MCH 29.1 pg (25.0-35.0); MCHC 30.7 g/dL (31.0-37.0); MCV 94.7 fL (80.0-100.0); Mean Platelet Volume 9.6; Monocytes # (A) 0.2 k/uL (0-1.0); Monocytes % (A) 5 %; Neutrophils # (A) 3.1 k/uL (1.3-7.7); Neutrophils % (A) 85 %; Platelet Count 117 k/uL (150-450); RBC 3.43 m/uL (3.80-5.40); RDW 16.4 % (11.5-15.5); WBC 3.7 k/uL (3.8-10.6)
[2017-11-20 06:19] LABS: Calcium 10.2 mg/dL (8.4-10.2); Potassium 3.9 mmol/L (3.5-5.1)
[2017-11-20] MEDS: METOPROLOL SUCCINATE (ER) 100 MG TAB.ER.24H PO SCH (08:36)
[2017-11-20] MEDS: amLODIPine 5 MG TAB PO SCH (08:36)
[2017-11-20] MEDS: ASPIRIN 325 MG TAB PO SCH (08:36)
[2017-11-20] MEDS: FUROSEMIDE 20 MG TAB PO SCH ×2 (08:36→16:59)
[2017-11-20] MEDS: ISOSORBIDE MONONITRATE ER 30 MG TAB.ER.24H PO SCH (08:36)
[2017-11-20] MEDS: POTASSIUM CHLORIDE ER 10 MEQ TAB.ER.PRT PO SCH (08:36)
[2017-11-20] MEDS: DIPHENOX-ATROP 2.5-0.025 MG 1 EACH TAB PO SCH (08:43)
--- NOTE | 2017-11-20 10:22 | P.PN ---
Subjective Progress Note Date: 11/20/17 Principal diagnosis: Shortness of breath This is a pleasant 82-year-old female who follows regularly with Dr. Millan in the office. 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 Most recent echocardiogram with Doppler study was performed in July 2017 which revealed an ejection fraction of 65-70%. Patient also has diagnosis of myelodysplasia for which she underwent chemotherapy. Patient has anemia from her myelodysplasia. She presents to the hospital on this occasion with symptoms of moderate to severe shortness of breath. Patient does state that she had an episode of chest discomfort in the right chest area, she states that it worsened with deep breathing. She also became diaphoretic at times. The pressure on arrival 174/ 72, heart rate in the 70s, 93% on 2 L of oxygen. White blood cell count 3.6, hemoglobin 11.2, platelet count 112. INR 1.9, d-dimer 17.8, sodium 140, potassium 3.9, BUN 26, creatinine 0.9. Troponins 0.045, 0.326. Calcium 10.4. EKG shows atrial fibrillation with a left bundle-branch block pattern. Chest x- ray shows small bilateral pleural effusions with adjacent atelectasis. Patient was recommended to undergo VQ scan, she refused however because she is unable to lie flat. CT of the chest has been ordered not yet performed. We will also request a BNP level. Patient denies any chest pain at present. 11/20/2017 Patient was seen and examined this morning, sitting up at the bedside. Appears much less short of breath today, she does state that she still feels short of breath however significantly improved. When asked, patient does state she has intermittent discomfort in the right chest area. CT of the chest performed yesterday which was negative for pulmonary embolism, small right pleural effusion, unopacified descending aortic aneurysm with aortic stent. Blood pressure this morning 132/70, heart rate in the 70s, 98% on 2 L of oxygen. A blood cell count 3.7, hemoglobin 10.0, platelet count 117. INR 2.2, sodium 139 , potassium 3.9, BUN 29, creatinine 1.0. I did have a discussion with Dr. Millan this morning regarding proceeding with cardiac catheterization, he will review the office records as well as the patient's records here and a decision will be made. Objective - Vital Signs Vital signs: Vital Signs Temp 98.5 F 11/20/17 04:00 Pulse 77 11/20/17 04:00 Resp 18 11/20/17 04:00 BP 132/77 11/20/17 04:00 Pulse Ox 98 11/20/17 04:00 Intake & Output 11/19/17 11/20/17 11/20/17 18:59 06:59 18:59 Intake Total 540 360 Output Total 700 950 Balance -700 -410 360 Weight 70.8 kg Intake: Intake, IV Titration 240 Amount Sodium Chloride 0.9% 1, 240 000 ml @ 20 mls/hr IV . Q24H STA Rx#:[id number] Oral 300 360 Output: Urine 700 950 Other: Voiding Method Toilet Toilet # Voids 1 # Bowel Movements 1 - Exam PHYSICAL EXAMINATION: HEENT: Head is atraumatic, normocephalic. Pupils equal, round. Neck is supple. There is elevated jugular venous pressure. HEART EXAMINATION: Heart S1 and S2 irregularly irregular a systolic ejection murmur is hear CHEST EXAMINATION: Lungs reveal decreased air exchange throughout with mild diminished air entry to the bases ABDOMEN: Soft, nontender. Bowel sounds are heard. No organomegaly noted. EXTREMITIES: 2+ peripheral pulses with trace evidence of peripheral edema and no calf tenderness noted. NEUROLOGIC patient is awake, alert and oriented -3. - Labs CBC & Chem 7: 11/20/17 05:30 11/20/17 05:30 Labs: Abnormal Lab Results - Last 24 Hours (Table) 11/19/17 11/19/17 11/19/17 Range/Units 10:27 16:55 20:25 WBC (3.8-10.6) k/uL RBC (3.80-5.40) m/uL Hgb (11.4-16.0) gm/dL Hct (34.0-46.0) % MCHC (31.0-37.0) g/dL RDW (11.5-15.5) % Plt Count (150-450) k/uL Lymphocytes # (1.0-4.8) k/uL PT (9.0-12.0) sec INR (<1.2) APTT (22.0-30.0) sec BUN (7-17) mg/dL Glucose (74-99) mg/dL Troponin I 0.326 H* 0.298 H* (0.000-0.034) ng/mL Urine Protein Trace H (Negative) Urine Glucose (UA) Trace H (Negative) Urine Blood Trace H (Negative) Urine Mucus Rare H (None) /hpf 11/19/17 11/20/17 11/20/17 Range/Units 21:25 05:30 05:30 WBC 3.7 L (3.8-10.6) k/uL RBC 3.43 L (3.80-5.40) m/uL Hgb 10.0 L (11.4-16.0) gm/dL Hct 32.5 L (34.0-46.0) % MCHC 30.7 L (31.0-37.0) g/dL RDW 16.4 H (11.5-15.5) % Plt Count 117 L (150-450) k/uL Lymphocytes # 0.3 L (1.0-4.8) k/uL PT (9.0-12.0) sec INR (<1.2) APTT 48.3 H (22.0-30.0) sec BUN 29 H (7-17) mg/dL Glucose 132 H (74-99) mg/dL Troponin I (0.000-0.034) ng/mL Urine Protein (Negative) Urine Glucose (UA) (Negative) Urine Blood (Negative) Urine Mucus (None) /hpf 11/20/17 Range/Units 05:30 WBC (3.8-10.6) k/uL RBC (3.80-5.40) m/uL Hgb (11.4-16.0) gm/dL Hct (34.0-46.0) % MCHC (31.0-37.0) g/dL RDW (11.5-15.5) % Plt Count (150-450) k/uL Lymphocytes # (1.0-4.8) k/uL PT 19.6 H (9.0-12.0) sec INR 2.2 H (<1.2) APTT (22.0-30.0) sec BUN (7-17) mg/dL Glucose (74-99) mg/dL Troponin I (0.000-0.034) ng/mL Urine Protein (Negative) Urine Glucose (UA) (Negative) Urine Blood (Negative) Urine Mucus (None) /hpf Assessment and Plan Plan: Assessment and plan #1 symptoms of progressively worsening shortness of breath, associated right- sided chest discomfort which worsens with breathing. Elevated d-dimer at 17. CT of the chest requested to rule out pulmonary embolism. EKG shows a normal sinus rhythm with a left bundle-branch block pattern and nonspecific ST-T wave changes. Troponins 0.045, 0.326, 0.298 #2 hypertension #3 hyperlipidemia #4 peripheral vascular disease #5 family history of premature coronary artery disease #6 coronary artery disease with moderate triple-vessel disease as documented by heart catheterization in 2012 #7 mildly disorder, status post chemotherapy #8 thrombocytopenia secondary to myelodysplastic disorder #9 thoracic aortic aneurysm status post endograft repair #10 chronic persistent atrial fibrillation on Coumadin for anticoagulation, INR subtherapeutic on admission at 1.9. Plan Echocardiogram with Doppler study was performed which revealed an ejection fraction of 45-50%. Severe concentric LVH noted. Moderate mitral regurg. Dr. Millan will review the patient's office records and current chart, decision then will be made regarding proceeding with cardiac catheterization. If the cardiac catheterization is performed, patient has been explained the risks and the benefits and she is willing to proceed. DNP note has been reviewed, I agree with a documented findings and plan of care. Patient was seen and examined.
--- NOTE | 2017-11-20 11:31 | P.PN ---
Subjective Progress Note Date: 11/20/17 Principal diagnosis: Right-sided chest pain and shortness of breath with troponin leak and negative workup for acute pulmonary embolism. This is a very pleasant 82-year-old female patient of Dr. Kay, who presented to the emergency department on earlier today with complaints of right- sided chest pain under the right breast, radiating to the back that started approximately 2:00 this morning. She describes the pain as intermittent, at times sharp, she becomes more short of breath with that. The pain seems to be reproducible upon palpating the right chest. She was diagnosed with myelodysplastic syndrome after bone marrow aspiration, and initiated on Revlimid in March [address] Coleman. 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 Does not wear oxygen at home, does have a Ventolin rescue inhaler. Her past medical history is also positive for history of DVTs, and pulmonary embolisms first diagnosed in 1954 after the of her first daughter. She had subsequent episodes of DVTs after surgical procedures, had a IVC placed, and has been on Coumadin for a long time. Dr. Kay is currently dosing her Coumadin. Her current INR is 1.9. Today her right-sided chest pain seems to be musculoskeletal in nature. Based on her ALLERGY to IV dye a CT angiogram has not been performed. Seen in consultation on the selective care unit. She is awake and alert in no acute distress. She does have some ongoing right-sided chest pain that again is reproducible with palpation. Mainly musculoskeletal in nature. She has been hemodynamically stable. Maintaining O2 saturations up to the 100% on 2 L/m per nasal cannula. She's afebrile. Chest x-ray shows small bilateral pleural effusions with adjacent atelectasis. Vascular stent noted in the descending thoracic aorta. Previous echocardiogram revealed an ejection fraction of 65-70%. Troponin 0.045. 0.326. White count 3.6. Hemoglobin 11.2. Platelet count 112,000. INR 1.9. D-dimer 17.89. Creatinine 0.92. Patient was reevaluated today on 11/20/2017, feeling better, hardly any pain, no shortness of breath, CT angiogram of the chest was negative for pulmonary embolism. Small tiny right pleural effusion was noted, and there was evidence of coronary calcifications. Aortic stent was noted to be unremarkable. Her echocardiogram showed moderate mitral regurgitation and severe concentric LVH. Patient is being scheduled for possible cardiac catheterization in the morning. Objective - Vital Signs Vital signs: Vital Signs Temp 98.5 F 11/20/17 04:00 Pulse 77 11/20/17 04:00 Resp 18 11/20/17 04:00 BP 132/77 11/20/17 04:00 Pulse Ox 98 11/20/17 04:00 Intake & Output 11/19/17 11/20/17 11/20/17 18:59 06:59 18:59 Intake Total 540 360 Output Total 700 950 Balance -700 -410 360 Weight 70.8 kg Intake: Intake, IV Titration 240 Amount Sodium Chloride 0.9% 1, 240 000 ml @ 20 mls/hr IV . Q24H STA Rx#:[id number] Oral 300 360 Output: Urine 700 950 Other: Voiding Method Toilet Toilet # Voids 1 # Bowel Movements 1 - Exam GENERAL EXAM: Alert, fairly comfortable in no apparent distress. HEAD: Normocephalic. EYES: Normal reaction of pupils, equal size. NOSE: Clear with pink turbinates. THROAT: No erythema or exudates. NECK: No masses, no JVD. CHEST: No chest wall deformity. Pain on palpation more so on the right. LUNGS: Equal air entry with no crackles, wheeze, rhonchi or dullness. CVS: S1 and S2 normal with no audible murmur, irregular rhythm. ABDOMEN: No hepatosplenomegaly, normal bowel sounds, no guarding or rigidity. SPINE: No scoliosis or deformity SKIN: No rashes CENTRAL NERVOUS SYSTEM: No focal deficits, tone is normal in all 4 extremities. EXTREMITIES: There is no peripheral edema. No clubbing, no cyanosis. Peripheral pulses are intact. - Labs CBC & Chem 7: 11/20/17 05:30 11/20/17 05:30 Labs: Abnormal Lab Results - Last 24 Hours (Table) 11/19/17 11/19/17 11/19/17 Range/Units 10:27 16:55 20:25 WBC (3.8-10.6) k/uL RBC (3.80-5.40) m/uL Hgb (11.4-16.0) gm/dL Hct (34.0-46.0) % MCHC (31.0-37.0) g/dL RDW (11.5-15.5) % Plt Count (150-450) k/uL Lymphocytes # (1.0-4.8) k/uL PT (9.0-12.0) sec INR (<1.2) APTT (22.0-30.0) sec BUN (7-17) mg/dL Glucose (74-99) mg/dL Troponin I 0.326 H* 0.298 H* (0.000-0.034) ng/mL Urine Protein Trace H (Negative) Urine Glucose (UA) Trace H (Negative) Urine Blood Trace H (Negative) Urine Mucus Rare H (None) /hpf 11/19/17 11/20/17 11/20/17 Range/Units 21:25 05:30 05:30 WBC 3.7 L (3.8-10.6) k/uL RBC 3.43 L (3.80-5.40) m/uL Hgb 10.0 L (11.4-16.0) gm/dL Hct 32.5 L (34.0-46.0) % MCHC 30.7 L (31.0-37.0) g/dL RDW 16.4 H (11.5-15.5) % Plt Count 117 L (150-450) k/uL Lymphocytes # 0.3 L (1.0-4.8) k/uL PT (9.0-12.0) sec INR (<1.2) APTT 48.3 H (22.0-30.0) sec BUN 29 H (7-17) mg/dL Glucose 132 H (74-99) mg/dL Troponin I (0.000-0.034) ng/mL Urine Protein (Negative) Urine Glucose (UA) (Negative) Urine Blood (Negative) Urine Mucus (None) /hpf 11/20/17 Range/Units 05:30 WBC (3.8-10.6) k/uL RBC (3.80-5.40) m/uL Hgb (11.4-16.0) gm/dL Hct (34.0-46.0) % MCHC (31.0-37.0) g/dL RDW (11.5-15.5) % Plt Count (150-450) k/uL Lymphocytes # (1.0-4.8) k/uL PT 19.6 H (9.0-12.0) sec INR 2.2 H (<1.2) APTT (22.0-30.0) sec BUN (7-17) mg/dL Glucose (74-99) mg/dL Troponin I (0.000-0.034) ng/mL Urine Protein (Negative) Urine Glucose (UA) (Negative) Urine Blood (Negative) Urine Mucus (None) /hpf Assessment and Plan Assessment: #1 Right-sided chest discomfort with some reproducibility and chest wall discomfort. Elevated d-dimer and negative CT angiogram for pulmonary embolism. #2 Troponin leak., And abnormal echocardiogram, patient is scheduled for cardiac catheterization in a.m. #3 Recent admission in July 2017 for similar symptoms. #4 History of descending thoracic aneurysm stent placement. #5 Coronary artery disease. #6 Hypertension. #7 Hypothyroidism. #8 Myelodysplastic disorder, treated with Revlimid. #9 Chronic atrial fibrillation, anticoagulated with warfarin, INR 1.9. Patient is now back on Coumadin. Heparin was discontinued. #10 Previous history of DVTs with IVC placement. Recommendation: Continue present treatment plan, no active pulmonary issues to address at this point, patient is being followed by cardiology, cardiac catheterization is scheduled for tomorrow, will reevaluate tomorrow and possibly sign off. Time with Patient: Less than 30
[2017-11-20 12:16] VITALS: BMI 30.4
[2017-11-20] MEDS: PATIENT'S OWN MED (Lenalidomide [Revlimid] 5 MG) PO SCH (15:43)
--- NOTE | 2017-11-20 18:08 | PN ---
PROGRESS NOTE DATE OF SERVICE: 11/20/2017 This 82-year-old woman was admitted shortness of breath and as well as possibly congestive heart failure acute exacerbation. The patient also had multiple medical issues including right-sided chest pain. Please note that patient had complicated aortic aneurysm and stent placement and apparently repair of the leak also last year. In July, the patient had a similar presentation. The patient was offered to be transferred to [facility] during that time, which the patient and family refused. The patient was treated conservatively. Patient improved significantly. Currently also the patient seems to be improving with current conservative line of management and Cardiology and Pulmonology are following the patient closely. PAST MEDICAL HISTORY: Reviewed. REVIEW OF SYSTEMS: Cardiovascular: As mentioned earlier. RESPIRATORY: As mentioned earlier. GI: No nausea, vomiting. : No dysuria. NERVOUS SYSTEM: No numbness or weakness. MEDICATIONS: Current medications are reviewed and include: 1. Norvasc 5 mg daily. 2. Aspirin 325 mg daily. 3. Lomotil 1 daily. 4. Lasix 20 mg b.i.d. 5. Imdur 30 mg p.o. daily. 6. Synthroid. 7. Toprol-XL. 8. Coumadin. 9. K-Dur 10 mEq p.o. daily. PHYSICAL EXAMINATION: Patient is alert, oriented x3. Pulse 72, blood pressure 154/76, respiration 18, temperature 96.9, pulse ox 100% on 2 L. HEENT: Conjunctivae normal. Oral mucosa moist. Neck is no jugular venous distention. No carotid bruit. No lymph node enlargement. CARDIOVASCULAR: S1 and S2 muffled. RESPIRATORY: Breath sounds diminished at the bases. A few scattered rhonchi and crackles. ABDOMEN: Soft, nontender. LEGS: No edema. No swelling. NERVOUS SYSTEM: No focal deficits. LABS: WBC 3.7, hemoglobin 10. INR is 2.2. Glucose 132. UA noted. ASSESSMENT: 1. Right-sided chest pain and shortness of breath for evaluation, possibly congestive heart failure acute exacerbation with acute on chronic systolic dysfunction, ejection fraction 45% to 50%. 2. Increased D-dimer with negative CT angio for pulmonary embolism. 3. History of descending aortic aneurysm and stenting. 4. Anemia for possibly chronic disease. 5. Mild pancytopenia. 6. Troponin 0.326, possible acute non ST-segment elevation myocardial infarction. 7. History of atrial fibrillation. 8. History of coronary artery disease. 9. History of congestive heart failure. 10.History of deep vein thrombosis. 11.Gastroesophageal reflux disease. 12.Hypertension. 13.Hyperlipidemia. 14.History myocardial infarction. 15.History of degenerative joint disease. 16.History of hypothyroidism. 17.Right leg swelling. 18.History of MDS, on oral chemo. 19.History of pulmonary emboli. 20.History of leaky cardiac valve. 21.Abdominal aortic aneurysm and thoracic aortic aneurysm, stented. 22.History of duodenal ulcer. 23.History of bowel syndrome. 24.History Helicobacter pylori. 25.History of cardiac cath. 26.History of stent for leaking and repeat procedure for the aortic aneurysm. RECOMMENDATIONS AND DISCUSSION: In this 82-year-old woman who presented with multiple complex medical issues, will monitor the patient closely. Continue the current medications. Continue the medical treatment. Continue with Lasix. Otherwise the chest x-ray which was reported as showing small bilateral pleural effusion, atelectasis. We will continue to monitor. Guarded prognosis because of multiple complex medical issues. Further recommendations to follow. MMODL / IJN: [id number] / [facility]
[2017-11-20] MEDS: WARFARIN 5 MG TAB PO SCH (20:03)
--- NOTE | 2017-11-20 20:13 | P.CONS ---
History of Present Illness - Reason for Consult Consult date: 11/20/17 Known MDS Requesting physician: Calvin Iqbal - Chief Complaint SOB - History of Present Illness Ms. 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 This is being evaluated by primary team, pulmonary, and cardiology teams. Work up so far including CT/PE with small right pleural effusion, and 2D echo which is normal except for mildly decreased EF. We were consulted due to known MDS and mild pancytopenia on presentation. Her CBC on presentation showed WBC 3.6, normal differential, Hgb 11.2, plt 112. On repeat her WBC 3.7, Hgb 10.0, plt 117. Her baseline CBC shows WBC 3-6, plt 110-300's and Hgb 8-10's. It seems that her platelets mostly decrease from normal range when she is hospitalized, although they have remained >100. She has been on low dose maintenance revlimid of 5mg daily for her MDS for which she follows with Dr. Coleman. Review of Systems All systems: negative Constitutional: Reports as per HPI Past Medical History Past Medical History: Atrial Fibrillation, Blood Disorder, Coronary Artery Disease (CAD), Chest Pain / Angina, Heart Failure, Deep Vein Thrombosis (DVT), Eye Disorder, GERD/Reflux, Hyperlipidemia, Hypertension, Myocardial Infarction ( [place]), Osteoarthritis (OA), Pneumonia, Syncope, Thyroid Disorder, Vascular Disorder Additional Past Medical History / Comment(s): Pt recently diagnosed with Afib, MDS diagnosed in 2016 and takes oral chemo, DVTs multiple in R leg and once in L arm, PEs-showering pulmonary embolisms bilateral lungs, chronic thrombophlebitis, coronary blockages, leaky cardiac valves, AAA thoracic and abdominal both stented, duodenal ulcer, hiatal hernia, diverticular dx, colitis , IBS, H. Pylori, frequent diarrhea, chronic anemia, bronchitis, pneumonias, macular degeneration bilaterally, syncopal episodes. Last Myocardial Infarction Date:: UNKNOWN History of Any Multi-Drug Resistant Organisms: None Reported Past Surgical History: Appendectomy, Cholecystectomy, Heart Catheterization, Hysterectomy Additional Past Surgical History / Comment(s): 09/2015 thoracic aortic aneurysm stent, 07/2017 thoracic aortic aneurysm stent leaking and another stent placed as well as abdominal aortic aneurysm stented, cardiac caths, green field filter , bone marrow aspiration, exploratory lap for adhesions, EGD/colonoscopies with benign polypectomy, hemorrhoidectomy, R leg vein stripping. Past Anesthesia/Blood Transfusion Reactions: No Reported Reaction Smoking Status: Never smoker - Past Family History Father Family Medical History: Coronary Artery Disease (CAD), Myocardial Infarction ([place] ) Mother Family Medical History: COPD, Coronary Artery Disease (CAD), Deep Vein Thrombosis (DVT) Brother(s) Family Medical History: Coronary Artery Disease (CAD), Myocardial Infarction ([place] ) Sister(s) Family Medical History: Cancer Medications and Allergies Home Medications Medication Instructions Recorded Confirmed Type amLODIPine BESYLATE [Amlodipine 5 mg PO DAILY 09/30/15 11/19/17 History Besylate] Potassium Chloride [Klor-Con 10] 10 meq PO DAILY 07/20/16 11/19/17 History Levothyroxine Sodium [Synthroid] 100 mcg PO DAILY 09/10/16 11/19/17 History Metoprolol Succinate [Toprol XL] 100 mg PO DAILY 09/10/16 11/19/17 History Furosemide [Lasix] 20 mg PO BID@0900,1600 #60 tab 09/14/16 11/19/17 Rx Isosorbide Mononitrate ER [Imdur] 30 mg PO DAILY 08/04/17 11/19/17 History Lenalidomide [Revlimid] 5 mg PO DAILY@199908/04/17 11/19/17 History Ondansetron [Zofran] 4 mg PO Q6HR PRN 08/04/17 11/19/17 History Warfarin [Coumadin] 5 mg PO HS 08/04/17 11/19/17 History Diphenox-Atrop 2.5-0.025 mg 1 tab PO DAILY 11/19/17 11/19/17 History [Lomotil] Allergies Allergy/AdvReac Type Severity Reaction Status Date / Time black pepper Allergy Severe Anaphylaxis Verified 11/19/17 07:20 peanut Allergy Severe Anaphylaxis Verified 11/19/17 07:20 atropine [From ] Allergy Unknown Verified 11/19/17 07:20 chocolate flavor Allergy Itching Verified 11/19/17 07:20 Egg Derived Allergy Itching Verified 11/19/17 07:20 hyoscyamine [From ] Allergy Unknown Verified 11/19/17 07:20 Iodinated Contrast- Oral and Allergy Swelling Verified 11/19/17 07:20 IV Dye [Iodinated Contrast Media - IV Dye] phenobarbital [From ] Allergy Unknown Verified 11/19/17 07:20 propoxyphene [From [place]] Allergy Unknown Verified 11/19/17 07:20 scopolamine [From ] Allergy Unknown Verified 11/19/17 07:20 Sulfa (Sulfonamide Allergy Rash/Hives Verified 11/19/17 07:20 Antibiotics) venom-honey bee Allergy Unknown Verified 11/19/17 07:20 [bee venom (honey bee)] acetaminophen [From [place]] AdvReac Hallucinati Verified 11/19/17 07:20 ons belladonna alkaloids AdvReac Unknown Verified 11/19/17 07:20 hydrocodone [From [place]] AdvReac Hallucinati Verified 11/19/17 07:20 ons simvastatin [From Zocor] AdvReac WEAKNESS Verified 11/19/17 07:20 SMELT Allergy Itching Uncoded 08/04/17 21:08 Physical Exam Vitals: Vital Signs Temp Pulse Pulse Resp BP BP Pulse Ox 11/20/17 04:00 98.5 F 77 18 132/77 98 11/20/17 00:00 80 18 11/19/17 23:56 97.7 F 80 18 160/70 98 11/19/17 20:00 98.2 F 81 18 129/69 98 11/19/17 17:00 96.9 F L 89 16 156/77 100 11/19/17 15:33 77 18 158/69 98 11/19/17 14:01 97.4 F L 75 18 160/69 98 11/19/17 13:00 18 11/19/17 12:00 98.0 F 72 18 131/86 99 11/19/17 11:20 76 18 143/72 100 11/19/17 09:48 88 18 174/97 98 Intake and Output 11/19/17 11/20/17 11/20/17 22:59 06:59 14:59 Intake Total 540 360 Output Total 500 450 Balance -500 90 360 Intake: Intake, IV Titration 240 Amount Sodium Chloride 0.9% 1, 240 000 ml @ 20 mls/hr IV . Q24H [facility] Rx#:[id number] Oral 300 360 Output: Urine 500 450 Other: Voiding Method Toilet Toilet # Voids 1 # Bowel Movements 1 Weight 70.8 kg Gen.: No acute distress HEENT: EOMI. No conjunctival pallor. Mucosa moist. Neck supple. Lymph: No cervical lymphadenopathy. Lungs: Clear to auscultation bilaterally. Heart: Regular rate and rhythm. Abdomen: Soft, nontender, nondistended, with positive bowel sounds. MSK: 4/4 strength in all 4 extremities. Neuro: Alert and oriented 3. Psych: Appropriate affect. Skin: No jaundice. Results CBC & Chem 7: 11/20/17 05:30 11/20/17 05:30 Labs: Abnormal Lab Results - Last 24 Hours (Table) 11/19/17 11/19/17 11/19/17 Range/Units 10:27 16:55 20:25 WBC (3.8-10.6) k/uL RBC (3.80-5.40) m/uL Hgb (11.4-16.0) gm/dL Hct (34.0-46.0) % MCHC (31.0-37.0) g/dL RDW (11.5-15.5) % Plt Count (150-450) k/uL Lymphocytes # (1.0-4.8) k/uL PT (9.0-12.0) sec INR (<1.2) APTT (22.0-30.0) sec BUN (7-17) mg/dL Glucose (74-99) mg/dL Troponin I 0.326 H* 0.298 H* (0.000-0.034) ng/mL Urine Protein Trace H (Negative) Urine Glucose (UA) Trace H (Negative) Urine Blood Trace H (Negative) Urine Mucus Rare H (None) /hpf 11/19/17 11/20/17 11/20/17 Range/Units 21:25 05:30 05:30 WBC 3.7 L (3.8-10.6) k/uL RBC 3.43 L (3.80-5.40) m/uL Hgb 10.0 L (11.4-16.0) gm/dL Hct 32.5 L (34.0-46.0) % MCHC 30.7 L (31.0-37.0) g/dL RDW 16.4 H (11.5-15.5) % Plt Count 117 L (150-450) k/uL Lymphocytes # 0.3 L (1.0-4.8) k/uL PT (9.0-12.0) sec INR (<1.2) APTT 48.3 H (22.0-30.0) sec BUN 29 H (7-17) mg/dL Glucose 132 H (74-99) mg/dL Troponin I (0.000-0.034) ng/mL Urine Protein (Negative) Urine Glucose (UA) (Negative) Urine Blood (Negative) Urine Mucus (None) /hpf 11/20/17 Range/Units 05:30 WBC (3.8-10.6) k/uL RBC (3.80-5.40) m/uL Hgb (11.4-16.0) gm/dL Hct (34.0-46.0) % MCHC (31.0-37.0) g/dL RDW (11.5-15.5) % Plt Count (150-450) k/uL Lymphocytes # (1.0-4.8) k/uL PT 19.6 H (9.0-12.0) sec INR 2.2 H (<1.2) APTT (22.0-30.0) sec BUN (7-17) mg/dL Glucose (74-99) mg/dL Troponin I (0.000-0.034) ng/mL Urine Protein (Negative) Urine Glucose (UA) (Negative) Urine Blood (Negative) Urine Mucus (None) /hpf Comments: 2D echo reviewed. Chest x-ray: report reviewed CT scan - chest: report reviewed Assessment and Plan Assessment: 1. SOB 2. Pancytopenia 3. Prior recurrent DVT/PE on warfarin 4. MDS on low dose revlimid 5mg daily 5. Multiple other comorbidities as per history Plan: Ms. Aragon is a pleasant 82 yo female who follows with Dr. Coleman for MDS, on revlimid 5mg daily, as well as recurrent DVT/PE on warfarin, who is here for acute onset SOB. Being evaluated by primary team, pulmonary and cardiology teams. As part of her work up found to have mild pancytopenia, which is unlikely to be contributing to her symptoms. We were called regarding her pancytopenia, MDS, and recurrent VTE. She has baseline mild anemia, Hgb 8-10's, which is what her Hgb is now. As for her mild leukopenia and thrombocytopenia, She seems to have this when she is hospitalized, likely due to underlying stress of the condition leading to her hospitalization. Her WBC has fluctuated in the past at 3-6, although mostly it drops to 3's during episodes of hospitalizations. Also platelets have fluctuated 110-300's, and mostly have been low during hospitalizations. She does have underlying MDS on revlimid, both of which could also be contributing. For now would hold her revlimid. If cytopenia's do not worsen and possibly even improve this can be resumed upon discharge. Otherwise she will need to follow up in clinic a week after discharge prior to resuming her revlimid. She can continue her anticoagulation for now as no concerns at this time for acute bleeding and with stable hemoglobin. Discussed with pt and she is agreeable to the plan. All questions answered.
[2017-11-21] MEDS: LEVOTHYROXINE 100 MCG TAB PO SCH (06:23)
[2017-11-21 06:30] LABS: Anisocytosis Slight; Basophils % (A) 0 %; Eosinophils # (A) 0.1 k/uL (0-0.7); Eosinophils % (A) 2 %; HCT 30.5 % (34.0-46.0); HGB 9.3 gm/dL (11.4-16.0); Hypochromasia Slight; Lymphocytes # (A) 0.7 k/uL (1.0-4.8); Lymphocytes % (A) 20 %; MCH 28.5 pg (25.0-35.0); MCHC 30.4 g/dL (31.0-37.0); MCV 93.9 fL (80.0-100.0); Mean Platelet Volume 9.6; Monocytes # (A) 0.3 k/uL (0-1.0); Monocytes % (A) 8 %; Neutrophils # (A) 2.4 k/uL (1.3-7.7); Neutrophils % (A) 69 %; Platelet Count 111 k/uL (150-450); RBC 3.24 m/uL (3.80-5.40); RDW 16.4 % (11.5-15.5); WBC 3.4 k/uL (3.8-10.6)
[2017-11-21 06:42] LABS: Calcium 10.3 mg/dL (8.4-10.2); INR 3.7 (<1.2); Potassium 3.7 mmol/L (3.5-5.1); Prothrombin Time 33.3 sec (9.0-12.0)
[2017-11-21] MEDS: amLODIPine 5 MG TAB PO SCH (09:20)
[2017-11-21] MEDS: POTASSIUM CHLORIDE ER 10 MEQ TAB.ER.PRT PO SCH (09:20)
[2017-11-21] MEDS: METOPROLOL SUCCINATE (ER) 100 MG TAB.ER.24H PO SCH (09:20)
[2017-11-21] MEDS: FUROSEMIDE 20 MG TAB PO SCH ×2 (09:20→16:29)
[2017-11-21] MEDS: DIPHENOX-ATROP 2.5-0.025 MG 1 EACH TAB PO SCH (09:21)
[2017-11-21] MEDS: ISOSORBIDE MONONITRATE ER 60 MG TAB.ER.24H PO SCH (09:21)
[2017-11-21] MEDS: ASPIRIN 325 MG TAB PO SCH (09:21)
--- NOTE | 2017-11-21 12:52 | P.PN ---
Subjective Progress Note Date: 11/21/17 Principal diagnosis: Right-sided chest pain and shortness of breath with troponin leak and negative workup for acute pulmonary embolism. This is a very pleasant 82-year-old female patient of Dr. Kay, who presented to the emergency department on earlier today with complaints of right- sided chest pain under the right breast, radiating to the back that started approximately 2:00 this morning. She describes the pain as intermittent, at times sharp, she becomes more short of breath with that. The pain seems to be reproducible upon palpating the right chest. She was diagnosed with myelodysplastic syndrome after bone marrow aspiration, and initiated on Revlimid in March [address] Coleman. 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 Does not wear oxygen at home, does have a Ventolin rescue inhaler. Her past medical history is also positive for history of DVTs, and pulmonary embolisms first diagnosed in 1954 after the of her first daughter. She had subsequent episodes of DVTs after surgical procedures, had a IVC placed, and has been on Coumadin for a long time. Dr. Kay is currently dosing her Coumadin. Her current INR is 1.9. Today her right-sided chest pain seems to be musculoskeletal in nature. Based on her ALLERGY to IV dye a CT angiogram has not been performed. Seen in consultation on the selective care unit. She is awake and alert in no acute distress. She does have some ongoing right-sided chest pain that again is reproducible with palpation. Mainly musculoskeletal in nature. She has been hemodynamically stable. Maintaining O2 saturations up to the 100% on 2 L/m per nasal cannula. She's afebrile. Chest x-ray shows small bilateral pleural effusions with adjacent atelectasis. Vascular stent noted in the descending thoracic aorta. Previous echocardiogram revealed an ejection fraction of 65-70%. Troponin 0.045. 0.326. White count 3.6. Hemoglobin 11.2. Platelet count 112,000. INR 1.9. D-dimer 17.89. Creatinine 0.92. Patient was reevaluated today on 11/20/2017, feeling better, hardly any pain, no shortness of breath, CT angiogram of the chest was negative for pulmonary embolism. Small tiny right pleural effusion was noted, and there was evidence of coronary calcifications. Aortic stent was noted to be unremarkable. Her echocardiogram showed moderate mitral regurgitation and severe concentric LVH. Patient is being scheduled for possible cardiac catheterization in the morning. Patient was reevaluated today on 11/21/2017, asymptomatic, no cough no wheezing no shortness of breath and no chest pain. She was supposed to undergo cardiac catheterization, however the pet crematory worker felt it was admitted to a risky and it was canceled. CBC was noted to be relatively normal except for hemoglobin of 9.3 and platelets of 111. INR is 3.7 basic metabolic profile is relatively normal renal profile is relatively normal. Objective - Vital Signs Vital signs: Vital Signs Temp 96.4 F L 11/21/17 08:00 Pulse 65 11/21/17 08:00 Resp 16 11/21/17 08:00 BP 147/65 11/21/17 08:00 Pulse Ox 100 11/21/17 08:00 Intake & Output 11/20/17 11/21/17 11/21/17 18:59 06:59 18:59 Intake Total 1122 350 360 Output Total 800 Balance 1122 -450 360 Weight 70.8 kg 70.9 kg Intake: Intake, IV Titration 60 Amount Heparin Sod,Pork in 0.45% 0 NaCl 25,000 unit In 0.45 % NaCl 1 500ml.bag @ 18 UNITS/KG/HR 25.47 mls/hr IV .[id number] [facility] Rx#: [id number] Sodium Chloride 0.9% 1, 60 000 ml @ 20 mls/hr IV . Q24H [facility] Rx#:[id number] Oral 1062 350 360 Output: Urine 800 Other: Voiding Method Toilet Toilet # Voids 1 - Exam GENERAL EXAM: Alert, fairly comfortable in no apparent distress. HEAD: Normocephalic. EYES: Normal reaction of pupils, equal size. NOSE: Clear with pink turbinates. THROAT: No erythema or exudates. NECK: No masses, no JVD. CHEST: No chest wall deformity. Pain on palpation more so on the right. LUNGS: Equal air entry with no crackles, wheeze, rhonchi or dullness. CVS: S1 and S2 normal with no audible murmur, irregular rhythm. ABDOMEN: No hepatosplenomegaly, normal bowel sounds, no guarding or rigidity. SPINE: No scoliosis or deformity SKIN: No rashes CENTRAL NERVOUS SYSTEM: No focal deficits, tone is normal in all 4 extremities. EXTREMITIES: There is no peripheral edema. No clubbing, no cyanosis. Peripheral pulses are intact. - Labs CBC & Chem 7: 11/21/17 05:44 11/21/17 05:44 Labs: Abnormal Lab Results - Last 24 Hours (Table) 11/21/17 11/21/17 11/21/17 Range/Units 05:44 05:44 05:44 WBC 3.4 L (3.8-10.6) k/uL RBC 3.24 L (3.80-5.40) m/uL Hgb 9.3 L (11.4-16.0) gm/dL Hct 30.5 L (34.0-46.0) % MCHC 30.4 L (31.0-37.0) g/dL RDW 16.4 H (11.5-15.5) % Plt Count 111 L (150-450) k/uL Lymphocytes # 0.7 L (1.0-4.8) k/uL PT 33.3 H (9.0-12.0) sec INR 3.7 H (<1.2) BUN 38 H (7-17) mg/dL Calcium 10.3 H (8.4-10.2) mg/dL Assessment and Plan Assessment: #1 Right-sided chest discomfort with some reproducibility and chest wall discomfort. Elevated d-dimer and negative CT angiogram for pulmonary embolism. #2 Troponin leak., And abnormal echocardiogram, cardiac catheterization was canceled by Dr. Millan #3 Recent admission in July 2017 for similar symptoms. #4 History of descending thoracic aneurysm stent placement. #5 Coronary artery disease. #6 Hypertension. #7 Hypothyroidism. #8 Myelodysplastic disorder, treated with Revlimid. #9 Chronic atrial fibrillation, anticoagulated with warfarin, INR 1.9. Patient is now back on Coumadin. Heparin was discontinued. #10 Previous history of DVTs with IVC placement. Recommendation: Continue present treatment plan, no active pulmonary issues to address at this point, patient is being followed by cardiology, we will sign off and see the patient on when necessary basis. Time with Patient: Less than 30
--- NOTE | 2017-11-21 13:38 | P.PN ---
Subjective Progress Note Date: 11/21/17 Mrs. Aragon is seen and examined resting comfortably in bed this morning she is wearing oxygen via nasal cannula. She states her breathing is better but still dyspneic on exertion. She gets up to the bathroom without the oxygen and she feels extremely short of breath. Denies symptoms of chest pain, dizziness, palpitations, nausea, vomiting or diaphoresis. Telemetry tracings have been unremarkable reveal atrial fibrillation with controlled ventricular response. Laboratory data reviewed, hemoglobin 9.3, platelets 111, INR 3.7, potassium 3.7 , creatinine 0.9, GFR 60. Blood pressure 147/65 heart rate 65 afebrile maintaining oxygen saturation on nasal cannula. Telemetry tracings reveal atrial fibrillation with controlled ventricular response. Objective - Vital Signs Vital signs: Vital Signs Temp 96.4 F L 11/21/17 08:00 Pulse 65 11/21/17 08:00 Resp 16 11/21/17 08:00 BP 147/65 11/21/17 08:00 Pulse Ox 100 11/21/17 08:00 Intake & Output 11/20/17 11/21/17 11/21/17 18:59 06:59 18:59 Intake Total 1122 350 360 Output Total 800 Balance 1122 -450 360 Weight 70.8 kg 70.9 kg Intake: Intake, IV Titration 60 Amount Heparin Sod,Pork in 0.45% 0 NaCl 25,000 unit In 0.45 % NaCl 1 500ml.bag @ 18 UNITS/KG/HR 25.47 mls/hr IV .[id number] [facility] Rx#: [id number] Sodium Chloride 0.9% 1, 60 000 ml @ 20 mls/hr IV . Q24H [facility] Rx#:[id number] Oral 1062 350 360 Output: Urine 800 Other: Voiding Method Toilet Toilet # Voids 1 - Exam GENERAL: Well-appearing, well-nourished and in no acute distress. NECK: Supple without JVD or thyromegaly. LUNGS: Breath sounds clear to auscultation bilaterally. Respiration equal and unlabored. No wheezes, rales or rhonchi. Diminished air entry. HEART: Irregular rate and rhythm with systolic ejection murmur at the base, no rubs or gallops. S1 and S2 heard. EXTREMITIES: Normal range of motion, no edema. No clubbing or cyanosis. Peripheral pulses intact and strong. - Labs CBC & Chem 7: 11/21/17 05:44 11/21/17 05:44 Labs: Abnormal Lab Results - Last 24 Hours (Table) 11/21/17 11/21/17 11/21/17 Range/Units 05:44 05:44 05:44 WBC 3.4 L (3.8-10.6) k/uL RBC 3.24 L (3.80-5.40) m/uL Hgb 9.3 L (11.4-16.0) gm/dL Hct 30.5 L (34.0-46.0) % MCHC 30.4 L (31.0-37.0) g/dL RDW 16.4 H (11.5-15.5) % Plt Count 111 L (150-450) k/uL Lymphocytes # 0.7 L (1.0-4.8) k/uL PT 33.3 H (9.0-12.0) sec INR 3.7 H (<1.2) BUN 38 H (7-17) mg/dL Calcium 10.3 H (8.4-10.2) mg/dL Assessment and Plan Assessment: ASSESSMENT #1 symptoms of progressively worsening shortness of breath, associated right- sided chest discomfort which worsens with breathing. Elevated d-dimer at 17. CT of the chest requested to rule out pulmonary embolism. EKG shows a normal sinus rhythm with a left bundle-branch block pattern and nonspecific ST-T wave changes. 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 Millan has reviewed the patient's office records as well as her current chart decision has been made to optimize maximum medical therapy at this time. No cardiac catheterization during this admission. Continue with amlodipine, aspirin, Lasix, Imdur, Toprol and Coumadin as previously ordered. Nurse Practitioner note has been reviewed, I agree with a documented findings and plan of care. Patient was seen and examined.
--- NOTE | 2017-11-21 16:42 | PN ---
PROGRESS NOTE DATE OF SERVICE: 11/21/2017 This 82-year-old woman is admitted right-sided chest pain shortness of breath is improving significantly. No chest pain. No palpitations. No fever. Cardiology is planning conservative line of management. EXAM: Alert, and oriented x3. Pulse 78, blood pressure 141/62, respiration 16, temperature 97 degrees, pulse ox 97% on room air. HEENT: Conjunctivae normal. NECK: No jugular venous distention. CARDIOVASCULAR: S1, S2 RESPIRATORY: Breath sounds diminished in the bases. No rhonchi, no crackles. ABDOMEN: A few rhonchi. Abdomen soft, nontender. LEGS: No edema. NERVOUS SYSTEM: No focal deficits. LABS: WBC 3.4, hemoglobin 9.3, INR 3.7. ASSESSMENT: 1. Right-sided chest pain, shortness of breath for evaluation possibly congestive heart failure acute exacerbation acute on chronic systolic dysfunction, ejection fraction 45-50%. 2. Increased D-dimer with negative CT angio for pulmonary embolus. 3. History of descending aortic aneurysm and stenting. 4. Anemia, possibly secondary to chronic disease. 5. Mild pancytopenia. 6. Troponin 0.326, possible acute non ST-segment elevation myocardial infarction. 7. History atrial fibrillation. 8. History of coronary artery disease. 9. History of congestive heart failure. 10.History of DVT. 11.History of gastroesophageal reflux disease. 12.Hypertension. 13.Hyperlipidemia. 14.History of myocardial infarction. 15.History of degenerative joint disease. 16.History of hypothyroidism. 17.Right leg swelling. 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 19.History of pulmonary emboli. 20.History of leaky cardiac valve. 21.History of aortic aneurysm and stenting. 22.History of duodenal ulcer. 23.History of Helicobacter pylori. 24.History of cardiac cath. 25.History of stent for leaking and repeat procedure for aortic aneurysm. RECOMMENDATIONS AND DISCUSSION: I recommend to continue current management and symptomatic treatment. Otherwise at this time I would recommend continue current medications. Symptomatic treatment. Cardiology is planning conservative line of management. Otherwise, guarded prognosis because of multiple complex medical issues. Hold the Coumadin today and further recommendations to follow. MMODL / IJN: [id number] / MTDMonty
[2017-11-21] MEDS: PATIENT'S OWN MED (Lenalidomide [Revlimid] 5 MG) PO SCH (19:41)
[2017-11-22 06:05] LABS: Basophils % (A) 1 %; Eosinophils # (A) 0.2 k/uL (0-0.7); Eosinophils % (A) 7 %; HCT 30.9 % (34.0-46.0); HGB 9.7 gm/dL (11.4-16.0); Hypochromasia Slight; Lymphocytes % (A) 29 %; MCH 29.3 pg (25.0-35.0); MCHC 31.4 g/dL (31.0-37.0); MCV 93.3 fL (80.0-100.0); Mean Platelet Volume 8.5; Monocytes # (A) 0.3 k/uL (0-1.0); Monocytes % (A) 9 %; Neutrophils # (A) 1.8 k/uL (1.3-7.7); Neutrophils % (A) 53 %; Platelet Count 105 k/uL (150-450); RBC 3.31 m/uL (3.80-5.40); WBC 3.4 k/uL (3.8-10.6)
[2017-11-22 06:12] LABS: Prothrombin Time 27.3 sec (9.0-12.0)
[2017-11-22 06:16] LABS: Calcium 9.9 mg/dL (8.4-10.2); Potassium 4.2 mmol/L (3.5-5.1)
[2017-11-22] MEDS: LEVOTHYROXINE 100 MCG TAB PO SCH (06:34)
[2017-11-22] MEDS: FUROSEMIDE 20 MG TAB PO SCH (08:52)
[2017-11-22] MEDS: amLODIPine 5 MG TAB PO SCH (08:52)
[2017-11-22] MEDS: ISOSORBIDE MONONITRATE ER 60 MG TAB.ER.24H PO SCH (08:52)
[2017-11-22] MEDS: ASPIRIN 325 MG TAB PO SCH (08:52)
[2017-11-22] MEDS: METOPROLOL SUCCINATE (ER) 100 MG TAB.ER.24H PO SCH (08:52)
[2017-11-22] MEDS: POTASSIUM CHLORIDE ER 10 MEQ TAB.ER.PRT PO SCH (08:52)
[2017-11-22] MEDS: DIPHENOX-ATROP 2.5-0.025 MG 1 EACH TAB PO SCH (08:55)
[2017-11-22 09:24] VITALS: RESP 20
--- NOTE | 2017-11-22 11:01 | P.PN ---
Subjective Progress Note Date: 11/22/17 Principal diagnosis: Shortness of breath This is a pleasant 82-year-old female who follows regularly with Dr. Millan in the office. 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 Most recent echocardiogram with Doppler study was performed in July 2017 which revealed an ejection fraction of 65-70%. Patient also has diagnosis of myelodysplasia for which she underwent chemotherapy. Patient has anemia from her myelodysplasia. She presents to the hospital on this occasion with symptoms of moderate to severe shortness of breath. Patient does state that she had an episode of chest discomfort in the right chest area, she states that it worsened with deep breathing. She also became diaphoretic at times. The pressure on arrival 174/ 72, heart rate in the 70s, 93% on 2 L of oxygen. White blood cell count 3.6, hemoglobin 11.2, platelet count 112. INR 1.9, d-dimer 17.8, sodium 140, potassium 3.9, BUN 26, creatinine 0.9. Troponins 0.045, 0.326. Calcium 10.4. EKG shows atrial fibrillation with a left bundle-branch block pattern. Chest x- ray shows small bilateral pleural effusions with adjacent atelectasis. Patient was recommended to undergo VQ scan, she refused however because she is unable to lie flat. CT of the chest has been ordered not yet performed. We will also request a BNP level. Patient denies any chest pain at present. 11/20/2017 Patient was seen and examined this morning, sitting up at the bedside. Appears much less short of breath today, she does state that she still feels short of breath however significantly improved. When asked, patient does state she has intermittent discomfort in the right chest area. CT of the chest performed yesterday which was negative for pulmonary embolism, small right pleural effusion, unopacified descending aortic aneurysm with aortic stent. Blood pressure this morning 132/70, heart rate in the 70s, 98% on 2 L of oxygen. A blood cell count 3.7, hemoglobin 10.0, platelet count 117. INR 2.2, sodium 139 , potassium 3.9, BUN 29, creatinine 1.0. I did have a discussion with Dr. Millan this morning regarding proceeding with cardiac catheterization, he will review the office records as well as the patient's records here and a decision will be made. 11/22/2017 Patient seen and examined this morning, denies any chest pain, breathing overall is stable. She does state that she had 3 bouts of diarrhea stools this morning. Dr. Millan did see the patient over the weekend and the decision was made to continue maximal medical therapy. Blood pressure 142/60 with a heart rate in the 80s. White blood cell count 3.4, hemoglobin 9.7, platelet count 105. INR 3.0, potassium 4.2, BUN 39, creatinine 0.9. Objective - Vital Signs Vital signs: Vital Signs Temp 97.8 F 11/22/17 08:00 Pulse 83 11/22/17 08:00 Resp 20 11/22/17 08:00 BP 143/67 11/22/17 08:00 Pulse Ox 98 11/22/17 08:00 Intake & Output 11/21/17 11/22/17 11/22/17 18:59 06:59 18:59 Intake Total 1080 20 300 Output Total 650 700 Balance 430 -680 300 Weight 71 kg Intake: IV 20 Invasive Line 1 20 Oral 1080 300 Output: Urine 650 700 Other: Voiding Method Toilet # Bowel Movements 1 - Exam PHYSICAL EXAMINATION: HEENT: Head is atraumatic, normocephalic. Pupils equal, round. Neck is supple. There is elevated jugular venous pressure. HEART EXAMINATION: Heart S1 and S2 irregularly irregular a systolic ejection murmur is hear CHEST EXAMINATION: Lungs reveal decreased air exchange throughout with mild diminished air entry to the bases ABDOMEN: Soft, nontender. Bowel sounds are heard. No organomegaly noted. EXTREMITIES: 2+ peripheral pulses with trace evidence of peripheral edema and no calf tenderness noted. NEUROLOGIC patient is awake, alert and oriented -3. - Labs CBC & Chem 7: 11/22/17 05:19 11/22/17 05:19 Labs: Abnormal Lab Results - Last 24 Hours (Table) 11/22/17 11/22/17 11/22/17 Range/Units 05:19 05:19 05:19 WBC 3.4 L (3.8-10.6) k/uL RBC 3.31 L (3.80-5.40) m/uL Hgb 9.7 L (11.4-16.0) gm/dL Hct 30.9 L (34.0-46.0) % RDW 16.0 H (11.5-15.5) % Plt Count 105 L (150-450) k/uL PT 27.3 H (9.0-12.0) sec INR 3.0 H (<1.2) Carbon Dioxide 31 H (22-30) mmol/L BUN 39 H (7-17) mg/dL Assessment and Plan Plan: Assessment and plan #1 symptoms of progressively worsening shortness of breath, associated right- sided chest discomfort which worsens with breathing. Elevated d-dimer at 17. CT of the chest requested to rule out pulmonary embolism. EKG shows a normal sinus rhythm with a left bundle-branch block pattern and nonspecific ST-T wave changes. Troponins 0.045, 0.326, 0.298 #2 hypertension #3 hyperlipidemia #4 peripheral vascular disease #5 family history of premature coronary artery disease #6 coronary artery disease with moderate triple-vessel disease as documented by heart catheterization in 2012 #7 mildly disorder, status post chemotherapy #8 thrombocytopenia secondary to myelodysplastic disorder #9 thoracic aortic aneurysm status post endograft repair #10 chronic persistent atrial fibrillation on Coumadin for anticoagulation, INR subtherapeutic on admission at 1.9. 3.0 this morning. Plan Echocardiogram with Doppler study was performed which revealed an ejection fraction of 45-50%. Severe concentric LVH noted. Moderate mitral regurg. We' ll continue the patient on her current maximal medical therapy. Once she is discharged from the hospital follow-up appointment will be made with Dr. Millan in the office. DNP note has been reviewed, I agree with a documented findings and plan of care. Patient was seen and examined.
[2017-11-22 11:50] VITALS: BP 142/71; PULSE 68; TEMP 98
--- NOTE | 2017-11-22 22:10 | DS ---
DISCHARGE SUMMARY FINAL DIAGNOSES: 1. Right-sided chest pain and shortness of breath, possibly congestive heart failure, acute exacerbation, with acute on chronic systolic dysfunction, 45% to 50%. 2. Increased D-dimer with negative CT angio for pulmonary embolism. 3. History of descending aortic aneurysm and stenting. 4. Anemia, possibly secondary to chronic disease. 5. Mild pancytopenia. 6. Troponin 0.326; possible acute djb-FU-zxfvtct-elevation myocardial infarction. 7. History of atrial fibrillation. 8. History of coronary artery disease. 9. History of congestive heart failure. 10.History of deep venous thrombosis. 11.History of gastroesophageal reflux disease. 12.Hypertension. 13.Hyperlipidemia. 14.History of myocardial infarction. 15.History of degenerative joint disease. 16.History of hypothyroidism. 17.Right leg swelling. 18.History of MDS, on oral chemo. 19.History of pulmonary emboli. 20.History of leaky cardiac valve. 21.History of aortic aneurysm with stenting. 22.History of duodenal ulcer. 23.History of Helicobacter pylori. 24.History of cardiac catheterization. 25.History of stent for leaking and repeat procedure for aortic aneurysm. DISCHARGE DISPOSITION: The patient will be discharged in stable condition with guarded prognosis. Total time taken 35 minutes. HISTORY OF PRESENT ILLNESS: This 82-year-old woman with past medical history of multiple medical problems was admitted with right-sided chest pain, treated symptomatically. Cardiology saw the patient and recommended a conservative line of management at this time. Prognosis is guarded. Otherwise the patient will be discharged in stable condition with guarded prognosis. On exam, vitals are stable. CARDIOVASCULAR SYSTEM: S1, S2 muffled. ABDOMEN: Soft. NERVOUS SYSTEM: No focal deficit. DISCHARGE ADVICE AND MEDICATIONS: 1. Diet is cardiac. 2. Activity limited until followup. 3. Follow up with Dr. Kay in 2 to 3 days. 4. Follow up with Dr. Kowalski as advised. 5. Follow up with Dr. Coleman as advised. 6. Follow up with Cardiology as advised. 7. Norvasc 5 mg p.o. daily. 8. Diphenoxylate 2.5 p.o. daily. 9. Lasix 20 mg p.o. b.i.d. 10.Imdur ER 60 mg p.o. daily. 11.Revlimid 5 mg p.o. daily. 12.Synthroid 100 mcg p.o. daily. 13.Toprol XL 100 mg p.o. daily. 14.Zofran 4 mg q.6 p.r.n. 15.Klor-Con 10 mEq p.o. daily. 16.Coumadin 4 mg p.o. daily. 17.CBC, BMP, PT, PT/INR with Dr. Kay. MMODL / IJN: [id number] /
== END 2017-11-22 15:43 | disposition home or self-care (01) ==
LOC: EC 04:53 → 6SEL 06:37
PROVIDERS: ADMIT Hospitalist; ATTEND Hospitalist
DX: R07.9 Chest pain, unspecified (principal); R06.02 Shortness of breath; R61 Generalized hyperhidrosis; M79.89 Other specified soft tissue disorders; R79.89 Other specified abnormal findings of blood chemistry; D61.818 Other pancytopenia; I25.10 Atherosclerotic heart disease of native coronary artery without angina pectoris; K21.9 Gastro-esophageal reflux disease without esophagitis; E78.5 Hyperlipidemia, unspecified; I25.2 Old myocardial infarction; M19.90 Unspecified osteoarthritis, unspecified site; E03.9 Hypothyroidism, unspecified; D46.9 Myelodysplastic syndrome, unspecified; I71.9 Aortic aneurysm of unspecified site, without rupture; I48.1 Persistent atrial fibrillation; I73.9 Peripheral vascular disease, unspecified; D69.59 Other secondary thrombocytopenia; I48.2 Chronic atrial fibrillation; I71.4 Abdominal aortic aneurysm, without rupture; I71.2 Thoracic aortic aneurysm, without rupture; K58.0 Irritable bowel syndrome with diarrhea; I44.7 Left bundle-branch block, unspecified; I34.0 Nonrheumatic mitral (valve) insufficiency; I11.9 Hypertensive heart disease without heart failure; Z86.711 Personal history of pulmonary embolism; Z92.21 Personal history of antineoplastic chemotherapy; Z79.899 Other long term (current) drug therapy; Z79.01 Long term (current) use of anticoagulants; Z80.9 Family history of malignant neoplasm, unspecified; Z82.5 Family history of asthma and other chronic lower respiratory diseases; Z91.041 Radiographic dye allergy status; Z88.5 Allergy status to narcotic agent; Z91.030 Bee allergy status; Z91.012 Allergy to eggs; Z91.010 Allergy to peanuts; Z88.2 Allergy status to sulfonamides; Z88.8 Allergy status to other drugs, medicaments and biological substances; Z91.018 Allergy to other foods; Z86.718 Personal history of other venous thrombosis and embolism; Z86.19 Personal history of other infectious and parasitic diseases; Z86.72 Personal history of thrombophlebitis; Z87.11 Personal history of peptic ulcer disease; Z77.22 Contact with and (suspected) exposure to environmental tobacco smoke (acute) (chronic); Z95.828 Presence of other vascular implants and grafts; Z87.01 Personal history of pneumonia (recurrent); Z86.79 Personal history of other diseases of the circulatory system
CPT/HCPCS: 99291; 96365 ×2; 96375 ×4; 96376; 36415; 94640; 93005; 93306; 85379; 83880; 80061; 80053; 80048 ×3; 82550; 82553; 84484; 85025 ×4; 85610 ×4; 85730; 81001; 71046; 71275; G0378 ×4; J1200; J1940; J2930; Q9967; J1644

== ENCOUNTER 2017-12-15 15:27 | Inpatient (IN) | payer MEDICARE, BC ==
--- NOTE | 2017-12-15 17:17 | ED ---
General Adult HPI - General Source: patient, RN notes reviewed Mode of arrival: wheelchair Limitations: no limitations <Aleksandra Odell - Last Filed: 12/15/17 18:08> <Krish Schultz - Last Filed: 12/15/17 18:33> - General Chief complaint: Extremity Injury, Lower Stated complaint: DVT left leg Time Seen by Provider: 12/15/17 17:02 - History of Present Illness Initial comments: This is an 82-year-old female with history of chronic thrombophlebitis that presents to the emergency department with chief complaint of left lower extremity DVT. Patient states that she has a history of multiple DVTs and pulmonary embolisms. She states that 3 days ago she developed pain in her left leg that worsened today. She states that the pain is at the back of the knee and radiates up to her groin. She denies any chest pain or shortness of breath but does admit to associated nausea. Denies any abdominal pain, vomiting, diarrhea or constipation. Patient states that her family physician, Dr. Kay, ordered a venous Doppler which revealed a positive DVT in the left lower extremity. Patient states she was admitted 2 weeks ago for exacerbation of CHF. She does state that she is currently on Coumadin. (Aleksandra Odell) - Related Data Home Medications Medication Instructions Recorded Confirmed amLODIPine BESYLATE [Amlodipine 5 mg PO DAILY 09/30/15 12/15/17 Besylate] Potassium Chloride [Klor-Con 10] 10 meq PO DAILY 07/20/16 12/15/17 Levothyroxine Sodium [Synthroid] 100 mcg PO DAILY 09/10/16 12/15/17 Metoprolol Succinate [Toprol XL] 100 mg PO DAILY 09/10/16 12/15/17 Lenalidomide [Revlimid] 5 mg PO HS@199908/04/17 12/15/17 Ondansetron [Zofran] 4 mg PO Q6HR PRN 08/04/17 12/15/17 Diphenox-Atrop 2.5-0.025 mg 1 tab PO DAILY 11/19/17 12/15/17 [Lomotil] Warfarin [Coumadin] 2.5 mg PO SUMOTUWEFR 12/15/17 12/15/17 Warfarin [Coumadin] 5 mg PO THSA 12/15/17 12/15/17 Previous Rx's Medication Instructions Recorded Furosemide [Lasix] 20 mg PO BID@0900,1600 #60 tab 11/22/17 Isosorbide Mononitrate ER [Imdur] 60 mg PO DAILY #30 tab.er.24h 11/22/17 Allergies Allergy/AdvReac Type Severity Reaction Status Date / Time black pepper Allergy Severe Anaphylaxis Verified 12/15/17 16:58 peanut Allergy Severe Anaphylaxis Verified 12/15/17 16:58 atropine [From ] Allergy Unknown Verified 12/15/17 16:58 chocolate flavor Allergy Itching Verified 12/15/17 16:58 Egg Derived Allergy Itching Verified 12/15/17 16:58 hyoscyamine [From ] Allergy Unknown Verified 12/15/17 16:58 Iodinated Contrast- Oral and Allergy Swelling Verified 12/15/17 16:58 IV Dye [Iodinated Contrast Media - IV Dye] phenobarbital [From ] Allergy Unknown Verified 12/15/17 16:58 propoxyphene [From Darvon] Allergy Unknown Verified 12/15/17 16:58 scopolamine [From ] Allergy Unknown Verified 12/15/17 16:58 Sulfa (Sulfonamide Allergy Rash/Hives Verified 12/15/17 16:58 Antibiotics) venom-honey bee Allergy Unknown Verified 12/15/17 16:58 [bee venom (honey bee)] acetaminophen [From Scott] AdvReac Hallucinati Verified 12/15/17 16:58 ons belladonna alkaloids AdvReac Unknown Verified 12/15/17 16:58 hydrocodone [From Scott] AdvReac Hallucinati Verified 12/15/17 16:58 ons simvastatin [From Zocor] AdvReac WEAKNESS Verified 12/15/17 16:58 SMELT Allergy Itching Uncoded 12/15/17 15:37 Review of Systems ROS Other: All systems not noted in ROS Statement are negative. <Aleksandra Odell - Last Filed: 12/15/17 18:08> ROS Other: All systems not noted in ROS Statement are negative. <Krish Schultz - Last Filed: 12/15/17 18:33> ROS Statement: Those systems with pertinent positive or pertinent negative responses have been documented in the HPI. Past Medical History Past Medical History: Atrial Fibrillation, Blood Disorder, Coronary Artery Disease (CAD), Chest Pain / Angina, Heart Failure, Deep Vein Thrombosis (DVT), Eye Disorder, GERD/Reflux, Hyperlipidemia, Hypertension, Myocardial Infarction ( [place]), Osteoarthritis (OA), Pneumonia, Syncope, Thyroid Disorder, Vascular Disorder Additional Past Medical History / Comment(s): Pt recently diagnosed with Afib, MDS diagnosed in 2016 and takes oral chemo, DVTs multiple in R leg and once in L arm, PEs-showering pulmonary embolisms bilateral lungs, chronic thrombophlebitis, coronary blockages, leaky cardiac valves, AAA thoracic and abdominal both stented, duodenal ulcer, hiatal hernia, diverticular dx, colitis , IBS, H. Pylori, frequent diarrhea, chronic anemia, bronchitis, pneumonias, macular degeneration bilaterally, syncopal episodes. Last Myocardial Infarction Date:: UNKNOWN History of Any Multi-Drug Resistant Organisms: None Reported Past Surgical History: Appendectomy, Cholecystectomy, Heart Catheterization, Hysterectomy Additional Past Surgical History / Comment(s): 09/2015 thoracic aortic aneurysm stent, 07/2017 thoracic aortic aneurysm stent leaking and another stent placed as well as abdominal aortic aneurysm stented, cardiac caths, green field filter , bone marrow aspiration, exploratory lap for adhesions, EGD/colonoscopies with benign polypectomy, hemorrhoidectomy, R leg vein stripping. Past Anesthesia/Blood Transfusion Reactions: No Reported Reaction Past Psychological History: No Psychological Hx Reported Smoking Status: Never smoker Past Alcohol Use History: None Reported Past Drug Use History: None Reported - Past Family History Father Family Medical History: Coronary Artery Disease (CAD), Myocardial Infarction ([place] ) Mother Family Medical History: COPD, Coronary Artery Disease (CAD), Deep Vein Thrombosis (DVT) Brother(s) Family Medical History: Coronary Artery Disease (CAD), Myocardial Infarction ([place] ) Sister(s) Family Medical History: Cancer <Aleksandra Odell M - Last Filed: 12/15/17 18:08> General Exam Limitations: no limitations <Aleksandra Odell - Last Filed: 12/15/17 18:08> <Krish Schultz - Last Filed: 12/15/17 18:33> - General Exam Comments Initial Comments: General: Awake and alert, well-developed; in no apparent distress. Pleasant and cooperative. HEENT: Head atraumatic, normocephalic. Pupils are equal, round and reactive to light. Extraocular movements intact. Oropharynx moist without erythema or exudate. Neck: Supple. Normal ROM. Cardiovascular: Irregularly irregular rhythm. No murmurs, rubs or gallops. Chest symmetrical. Respiratory: Lungs clear to auscultation bilaterally. No wheezes, rales or rhonchi. Normal respiratory effort with no use of accessory muscles. Musculoskeletal: Normal range of motion of bilateral lower extremities. There is tenderness on palpation of left proximal calf and medial thigh. Pedal pulses are 2+ equal and palpable bilaterally. Nose significant swelling or erythema noted to the left lower extremity. Skin: [place], warm and dry without rashes or lesions. Neurological: Alert and oriented x3. CN II-XII grossly intact. Speech is fluent and answers are appropriate. No focal neuro deficits. Psychiatric: Normal mood and affect. No overt signs of depression or anxiety noted. (Aleksandra Odell) Course <Aleksandra Odell - Last Filed: 12/15/17 18:08> <Krish Schultz - Last Filed: 12/15/17 18:33> Vital Signs 12/15/17 12/15/17 15:35 17:13 Temperature 98.5 F 98.1 F Pulse Rate 82 85 Respiratory 18 18 Rate Blood Pressure 131/78 154/71 O2 Sat by Pulse 96 99 Oximetry - Reevaluation(s) Reevaluation #1: Patient currently on Coumadin. INR of 1.6. Venous Doppler of left lower extremity indicates an extensive DVT. Patient denies any rectal bleeding or hematuria. She will be started on heparin drip at this time. 12/15/17 18:03 (Aleksandra Odell) Medical Decision Making - Lab Data Result diagrams: 12/15/17 17:25 12/15/17 17:25 When compared to previous EKG there are: no significant change, other (compared to november 2017 ekg-LBBB present at that time as well. ) - Radiology Data Radiology results: report reviewed <Aleksandra Odell - Last Filed: 12/15/17 18:08> - Lab Data Result diagrams: 12/15/17 17:25 12/15/17 17:25 <Krish Schultz - Last Filed: 12/15/17 18:33> - Medical Decision Making This is an 82-year-old female who presented to the emergency department for evaluation and treatment of deep venous thrombosis of the left lower extremity. Patient is currently on Coumadin. Patient denies any chest pain or shortness of breath. EKG revealed atrial flutter. When compared to previous EKG, no acute changes are noted. INR is subtherapeutic at 1.6. Patient denies any rectal bleeding. Hemoglobin is 10.3, however this is chronic per patient as she does have myelodysplastic syndrome. Attending physician, Dr. Schultz spoke with Dr. Agee. Patient will be admitted for IV heparin to Dr. Iqbal with a consult to Dr. Agee. Patient's vital signs are stable and she is in no distress. She is in agreement with admission. All questions answered. (Aleksandra Odell) Case discussed with Dr. Agee, recommends IV heparin, will see patient in consultation. No need for vascular intervention at this time. (Krish Schultz) - Lab Data Lab Results 12/15/17 12/15/17 12/15/17 Range/Units 17:25 17:25 17:25 WBC 3.4 L (3.8-10.6) k/uL RBC 3.60 L (3.80-5.40) m/uL Hgb 10.3 L (11.4-16.0) gm/dL Hct 33.2 L (34.0-46.0) % MCV 92.0 (80.0-100.0) fL MCH 28.6 (25.0-35.0) pg MCHC 31.0 (31.0-37.0) g/dL RDW 16.2 H (11.5-15.5) % Plt Count 85 L (150-450) k/uL Neutrophils % 45 % Lymphocytes % 34 % Monocytes % 9 % Eosinophils % 10 % Basophils % 1 % Neutrophils # 1.5 (1.3-7.7) k/uL Lymphocytes # 1.1 (1.0-4.8) k/uL Monocytes # 0.3 (0-1.0) k/uL Eosinophils # 0.3 (0-0.7) k/uL Basophils # 0.0 (0-0.2) k/uL Polychromasia Present Hypochromasia Slight Anisocytosis Slight PT 14.5 H (9.0-12.0) sec INR 1.6 H (<1.2) APTT 23.3 (22.0-30.0) sec Sodium 137 (137-145) mmol/L Potassium 4.2 (3.5-5.1) mmol/L Chloride 99 (98-107) mmol/L Carbon Dioxide 28 (22-30) mmol/L Anion Gap 10 mmol/L BUN 24 H (7-17) mg/dL Creatinine 1.03 (0.52-1.04) mg/dL Est GFR (CKD-EPI)AfAm 59 (>60 ml/min/1.73 sqM) Est GFR (CKD-EPI)NonAf 51 (>60 ml/min/1.73 sqM) Glucose 87 (74-99) mg/dL Calcium 10.5 H (8.4-10.2) mg/dL Total Bilirubin 1.1 (0.2-1.3) mg/dL AST 16 (14-36) U/L ALT 20 (9-52) U/L Alkaline Phosphatase 99 (38-126) U/L Total Protein 7.3 (6.3-8.2) g/dL Albumin 3.9 (3.5-5.0) g/dL - EKG Data EKG Comments: 17:30:34. Atrial flutter with variable AV block. Left axis deviation. Left bundle branch block. Ventricular rate 68 bpm, QRS duration 158, QT/QTc 448/476 (Aleksandra Odell) - Radiology Data Ultrasound venous Doppler duplex left lower extremity: Positive for DVT from the external iliac veins to proximal calf veins. (Aleksandra Odell) Disposition Time of Disposition: 18:11 <Aleksandra Odell - Last Filed: 12/15/17 18:08> <Krish Schultz - Last Filed: 12/15/17 18:33> Clinical Impression: Deep vein thrombosis (DVT) of left lower extremity Disposition: ADMITTED IP TO THIS HOSP Condition: Stable
[2017-12-15 17:35] LABS: Anisocytosis Slight; Basophils % (A) 1 %; Eosinophils # (A) 0.3 k/uL (0-0.7); Eosinophils % (A) 10 %; HCT 33.2 % (34.0-46.0); HGB 10.3 gm/dL (11.4-16.0); Hypochromasia Slight; Lymphocytes # (A) 1.1 k/uL (1.0-4.8); Lymphocytes % (A) 34 %; MCH 28.6 pg (25.0-35.0); Mean Platelet Volume 9.7; Monocytes # (A) 0.3 k/uL (0-1.0); Monocytes % (A) 9 %; Neutrophils # (A) 1.5 k/uL (1.3-7.7); Neutrophils % (A) 45 %; RDW 16.2 % (11.5-15.5); WBC 3.4 k/uL (3.8-10.6)
[2017-12-15 17:49] LABS: Albumin 3.9 g/dL (3.5-5.0); Calcium 10.5 mg/dL (8.4-10.2); Potassium 4.2 mmol/L (3.5-5.1); Total Bilirubin 1.1 mg/dL (0.2-1.3); Total Protein 7.3 g/dL (6.3-8.2)
[2017-12-15 17:52] LABS: INR 1.6 (<1.2); Partial Thromboplastin Time 23.3 sec (22.0-30.0); Prothrombin Time 14.5 sec (9.0-12.0)
[2017-12-15] MEDS ORDERED: HEPARIN SODIUM,PORCINE 5,000 UNIT/ML 1 ML VIAL IV PRN (18:00)
[2017-12-15] MEDS ORDERED: HEPARIN SODIUM,PORCINE 10,000 UNIT/ML 1 ML VIAL IV ONE (18:00)
[2017-12-15 18:01] LABS: Platelet Count 85 k/uL (150-450); Polychromasia Present
[2017-12-15] MEDS ORDERED: NALOXONE 0.4 MG/ML 1 ML VIAL IV PRN (18:11)
[2017-12-15] MEDS: SODIUM CHLORIDE 0.9% 1,000 ML IV SCH (18:33)
[2017-12-15] MEDS ORDERED: DIPHENOX-ATROP 2.5-0.025 MG 1 EACH TAB PO PRN (18:34)
[2017-12-15] MEDS: HEPARIN SOD,PORK IN 0.45% NACL 25,000 UNIT in 0.45% NACL 1 500ML.BAG IV SCH (18:34)
[2017-12-15] MEDS: Lenalidomide [Revlimid] 5 MG PO SCH (23:24)
[2017-12-16] MEDS: LEVOTHYROXINE 100 MCG TAB PO SCH (05:48)
[2017-12-16 07:37] LABS: Anisocytosis Slight; HGB 9.1 gm/dL (11.4-16.0); Hypochromasia Slight; INR 1.5 (<1.2); MCH 29.1 pg (25.0-35.0); MCHC 31.4 g/dL (31.0-37.0); MCV 92.5 fL (80.0-100.0); Mean Platelet Volume 9.8; Partial Thromboplastin Time 51.6 sec (22.0-30.0); Prothrombin Time 14.1 sec (9.0-12.0); RBC 3.13 m/uL (3.80-5.40); RDW 16.4 % (11.5-15.5); WBC 2.1 k/uL (3.8-10.6)
[2017-12-16 07:42] LABS: Platelet Count 70 k/uL (150-450)
[2017-12-16] MEDS: SODIUM CHLORIDE 0.9% 1,000 ML IV SCH ×2 (07:57→18:20)
[2017-12-16] MEDS: ISOSORBIDE MONONITRATE ER 60 MG TAB.ER.24H PO SCH (08:15)
[2017-12-16] MEDS: amLODIPine 5 MG TAB PO SCH (08:15)
[2017-12-16] MEDS: METOPROLOL SUCCINATE (ER) 100 MG TAB.ER.24H PO SCH (08:15)
[2017-12-16 08:25] LABS: Band Neutrophils % 1 %; Basophils # (M) 0.02 k/uL (0-0.2); Eosinophils # (M) 0.21 k/uL (0-0.7); Lymphocytes # (M) 0.74 k/uL (1.0-4.8); Metamyelocytes # (M) 0.02 k/uL (0); Metamyelocytes % 1 %; Monocytes # (M) 0.34 k/uL (0-1.0); Neutrophils % (M) 36 %; Nucleated Red Blood Cells 0 /100 WBC (0-0); RBC Fragments Present; Total Cells Counted 100
[2017-12-16 08:26] LABS: Ovalocytes Present; Poikilocytosis (M) Present
--- NOTE | 2017-12-16 10:20 | CONS ---
CONSULTATION This patient is an 82-year-old female. She came to the emergency room yesterday evening with history of pain and swelling left lower extremity. The patient was seen by Dr. Kay and ordered ultrasound, which revealed the left lower extremity DVT. The patient has history of DVT in the right lower extremity. She has been treated with Coumadin. MEDICAL HISTORY: History of atrial fibrillation, blood disorder, coronary artery disease, heart failure, history of DVT in the past. The patient also has a history of some blood disorder. She is taking chemo under care of Dr. Coleman. PHYSICAL EXAMINATION: On examination, patient was seen in her room. Her neck is supple. Trachea central. Chest is clear to auscultation. Abdomen is soft. Femoral pulses are present. Dorsalis pedis is palpable. Left lower extremity has some ecchymoses with some calf tenderness. No evidence of vascular compromise. PLAN: Patient is on heparin and she will be started on Coumadin. When Coumadin is therapeutic, the patient can go home and follow up in my office in 2 weeks. Recommend to have YNES herrera left lower extremity, one pillow elevation. MMODL / IJN: [id number] /
[2017-12-16] MEDS: HEPARIN SOD,PORK IN 0.45% NACL 25,000 UNIT in 0.45% NACL 1 500ML.BAG IV SCH (18:21)
[2017-12-16] MEDS: WARFARIN 5 MG TAB PO SCH (18:21)
--- NOTE | 2017-12-16 19:35 | P.HPIM ---
History of Present Illness This is a pleasant 82 years old female with past medical history of MDS on treatment, pancytopenia, CHF with a recent admission to the hospital the last few days or weeks and RIGHT lower extremity DVT AND pe on Coumadin who presents with left leg ecchymosis for the last 2 weeks associated with pain in the left thigh over the last 3 days she is an you for her she denies any chest pain shortness of breath or hemoptysis On admission patient had Doppler of the left lower extremity which shows DVT Review of Systems 10 point systemic review were negative except was mentioned above in the HPI Past Medical History Past Medical History: Atrial Fibrillation, Blood Disorder, Coronary Artery Disease (CAD), Chest Pain / Angina, Heart Failure, Deep Vein Thrombosis (DVT), Eye Disorder, GERD/Reflux, Hyperlipidemia, Hypertension, Myocardial Infarction ( PA), Osteoarthritis (OA), Pneumonia, Syncope, Thyroid Disorder, Vascular Disorder Additional Past Medical History / Comment(s): Pt recently diagnosed with Afib, MDS diagnosed in 2016 and takes oral chemo, DVTs multiple in R leg and once in L arm, PEs-showering pulmonary embolisms bilateral lungs, chronic thrombophlebitis, coronary blockages, leaky cardiac valves, AAA thoracic and abdominal both stented, duodenal ulcer, hiatal hernia, diverticular dx, colitis , IBS, H. Pylori, frequent diarrhea, chronic anemia, bronchitis, pneumonias, macular degeneration bilaterally, syncopal episodes. Last Myocardial Infarction Date:: UNKNOWN History of Any Multi-Drug Resistant Organisms: None Reported Past Surgical History: Appendectomy, Cholecystectomy, Heart Catheterization, Hysterectomy Additional Past Surgical History / Comment(s): 09/2015 thoracic aortic aneurysm stent, 07/2017 thoracic aortic aneurysm stent leaking and another stent placed as well as abdominal aortic aneurysm stented, cardiac caths, green field filter , bone marrow aspiration, exploratory lap for adhesions, EGD/colonoscopies with benign polypectomy, hemorrhoidectomy, R leg vein stripping. Past Anesthesia/Blood Transfusion Reactions: No Reported Reaction Smoking Status: Never smoker - Past Family History Father Family Medical History: Coronary Artery Disease (CAD), Myocardial Infarction (PA ) Mother Family Medical History: COPD, Coronary Artery Disease (CAD), Deep Vein Thrombosis (DVT) Brother(s) Family Medical History: Coronary Artery Disease (CAD), Myocardial Infarction (PA ) Sister(s) Family Medical History: Cancer Medications and Allergies Home Medications Medication Instructions Recorded Confirmed Type amLODIPine BESYLATE [Amlodipine 5 mg PO DAILY 09/30/15 12/15/17 History Besylate] Potassium Chloride [Klor-Con 10] 10 meq PO DAILY 07/20/16 12/15/17 History Levothyroxine Sodium [Synthroid] 100 mcg PO DAILY 09/10/16 12/15/17 History Metoprolol Succinate [Toprol XL] 100 mg PO DAILY 09/10/16 12/15/17 History Lenalidomide [Revlimid] 5 mg PO HS@199908/04/17 12/15/17 History Ondansetron [Zofran] 4 mg PO Q6HR PRN 08/04/17 12/15/17 History Diphenox-Atrop 2.5-0.025 mg 1 tab PO DAILY 11/19/17 12/15/17 History [Lomotil] Furosemide [Lasix] 20 mg PO BID@0900,1600 #60 tab 11/22/17 12/15/17 Rx Isosorbide Mononitrate ER [Imdur] 60 mg PO DAILY #30 tab.er.24h 11/22/17 Rx Warfarin [Coumadin] 2.5 mg PO SUMOTUWEFR 12/15/17 12/15/17 History Warfarin [Coumadin] 5 mg PO THSA 12/15/17 12/15/17 History Allergies Allergy/AdvReac Type Severity Reaction Status Date / Time black pepper Allergy Severe Anaphylaxis Verified 12/15/17 16:58 Influenza Virus Vaccines Allergy Severe Unknown Verified 12/15/17 20:32 peanut Allergy Severe Anaphylaxis Verified 12/15/17 16:58 atropine [From ] Allergy Unknown Verified 12/15/17 16:58 chocolate flavor Allergy Itching Verified 12/15/17 16:58 hyoscyamine [From ] Allergy Unknown Verified 12/15/17 16:58 Iodinated Contrast- Oral and Allergy Swelling Verified 12/15/17 16:58 IV Dye [Iodinated Contrast Media - IV Dye] phenobarbital [From ] Allergy Unknown Verified 12/15/17 16:58 propoxyphene [From Darvon] Allergy Unknown Verified 12/15/17 16:58 scopolamine [From ] Allergy Unknown Verified 12/15/17 16:58 Sulfa (Sulfonamide Allergy Rash/Hives Verified 12/15/17 16:58 Antibiotics) venom-honey bee Allergy Unknown Verified 12/15/17 16:58 [bee venom (honey bee)] acetaminophen [From Lester] AdvReac Hallucinati Verified 12/15/17 16:58 ons belladonna alkaloids AdvReac Unknown Verified 12/15/17 16:58 hydrocodone [From Lester] AdvReac Hallucinati Verified 12/15/17 16:58 ons simvastatin [From Zocor] AdvReac WEAKNESS Verified 12/15/17 16:58 SMELT Allergy Itching Uncoded 12/15/17 15:37 Physical Exam Vitals: Vital Signs Temp Pulse Resp BP Pulse Ox 12/16/17 16:00 70 18 12/16/17 15:35 98.0 F 70 18 116/65 94 L 12/16/17 08:21 75 18 12/16/17 07:30 75 18 151/53 94 L 12/16/17 00:49 16 12/15/17 23:35 97.9 F 74 16 134/67 97 12/15/17 21:30 16 Intake and Output 12/16/17 12/16/17 12/16/17 06:59 14:59 22:59 Intake Total 965.512 700 324.488 Balance 965.512 700 324.488 Intake: Intake, IV Titration 725.512 300 324.488 Amount Heparin Sod,Pork in 0.45% 175.512 324.488 NaCl 25,000 unit In 0.45 % NaCl 1 500ml.bag @ 18 UNITS/KG/HR 24.49 mls/hr IV .[id number] [facility] Rx#: [id number] Sodium Chloride 0.9% 1, 550 300 000 ml @ 75 mls/hr IV . [id number] [facility] Rx#:[id number] Oral 240 400 Other: Voiding Method Toilet Toilet Toilet # Voids 2 2 Weight 64.5 kg 64.5 kg 64.5 kg Constitutional: No acute distress, conversant, pleasant Eyes: Anicteric sclerae, moist conjunctiva, no lid-lag PERRLA ENMT: NC/AT Oropharynx clear, no erythema, exudates Neck: Supple, FROM, no masses, or JVD No carotid bruits No thyromegaly Lungs: Clear to auscultation Clear to percussion Normal respiratory effort, no accessory muscle use Cardiovascular: Heart regular in rate and rhythm, No murmurs, gallops, or rubs No peripheral edema Abdominal: Soft Nontender, no guarding, rebound or rigidity Abdomen moving with respiration Normoactive bowel sounds No hepatomegaly, No splenomegaly No palpable mass No abdominal wall hernia noted Skin: Normal temperature, tone, texture, turgor No induration No subcutaneous nodules No rash, lesions No ulcers -Extremities: No digital cyanosis No clubbing Pedal pulses intact and symmetrical Radial pulses intact and symmetrical Ecchymoses about 7 cm on the back of her left leg, mild tenderness over the thigh Psychiatric: Alert and oriented to person, place and time Appropriate affect Intact judgement Neuro: Muscles Strength 5/5 in all 4 extremities Sensation to light touch grossly present throughout Cranial nerves II-XII grossly intact No focal sensory deficits Results CBC & Chem 7: 12/16/17 06:42 12/15/17 17:25 Labs: Abnormal Lab Results - Last 24 Hours (Table) 12/16/17 12/16/17 12/16/17 Range/Units 00:12 06:42 06:42 WBC 2.1 L (3.8-10.6) k/uL RBC 3.13 L (3.80-5.40) m/uL Hgb 9.1 L (11.4-16.0) gm/dL Hct 29.0 L (34.0-46.0) % RDW 16.4 H (11.5-15.5) % Plt Count 70 L (150-450) k/uL Neutrophils # (Manual) 0.70 L (1.3-7.7) k/uL Lymphocytes # (Manual) 0.74 L (1.0-4.8) k/uL Metamyelocytes # (Man) 0.02 H (0) k/uL PT 14.1 H (9.0-12.0) sec INR 1.5 H (<1.2) APTT 83.0 H 51.6 H (22.0-30.0) sec Thrombosis Risk Factor Assmnt - Choose All That Apply Any of the Below Risk Factors Present?: Yes Each Factor Represents 1 point: Heart failure (<1month), Swollen legs (current) , Varicose veins Other Risk Factors: Yes Each Risk Factor Represents 2 Points: Malignancy Each Risk Factor Represents 3 Points: Age 75 years or older, Family history of DVT/PE, History of DVT/PE Other congenital or acquired thrombophilia - If yes, enter type in comment: No Thrombosis Risk Factor Assessment Total Risk Factor Score: 14 Thrombosis Risk Factor Assessment Level: High Risk Assessment and Plan Assessment: -DVT THE left lower extremity, patient is already on Coumadin for history of right lower extremity DVT and PE with subtherapeutic INR on admission of 1.5, continue with heparin drip, and consult hematology -MDS, continue same treatment -CHF continue with same treatment -History of A. fib, continue with Coumadin and beta rosalina, rate is controlled
[2017-12-16] MEDS: Lenalidomide [Revlimid] 5 MG PO SCH ×2 (20:57→21:46)
[2017-12-17 00:25] LABS: Calcium 9.9 mg/dL (8.4-10.2); Potassium 3.8 mmol/L (3.5-5.1)
[2017-12-17] MEDS: LEVOTHYROXINE 100 MCG TAB PO SCH (06:12)
[2017-12-17] MEDS: amLODIPine 5 MG TAB PO SCH (07:46)
[2017-12-17] MEDS: ISOSORBIDE MONONITRATE ER 60 MG TAB.ER.24H PO SCH (07:47)
[2017-12-17 07:48] LABS: INR 1.4 (<1.2); Partial Thromboplastin Time 54.4 sec (22.0-30.0); Prothrombin Time 12.9 sec (9.0-12.0)
[2017-12-17] MEDS: METOPROLOL SUCCINATE (ER) 100 MG TAB.ER.24H PO SCH (08:02)
[2017-12-17 08:04] LABS: Anisocytosis Slight; Basophils % (A) 1 %; Eosinophils # (A) 0.2 k/uL (0-0.7); Eosinophils % (A) 9 %; HCT 29.6 % (34.0-46.0); HGB 9.2 gm/dL (11.4-16.0); Hypochromasia Moderate; Lymphocytes # (A) 0.8 k/uL (1.0-4.8); Lymphocytes % (A) 33 %; MCH 28.9 pg (25.0-35.0); Mean Platelet Volume 9.5; Monocytes # (A) 0.2 k/uL (0-1.0); Monocytes % (A) 10 %; Neutrophils # (A) 1.1 k/uL (1.3-7.7); Neutrophils % (A) 44 %; Platelet Count 102 k/uL (150-450); RBC 3.18 m/uL (3.80-5.40); RDW 16.3 % (11.5-15.5); WBC 2.4 k/uL (3.8-10.6)
--- NOTE | 2017-12-17 08:51 | P.PN ---
Subjective Progress Note Date: 12/17/17 Patient is seen and examined by me at bedside No new complaint Patient is still have some pain in the left lower extremity Objective - Vital Signs Vital signs: Vital Signs Temp 97.1 F L 12/17/17 07:00 Pulse 74 12/17/17 07:00 Resp 16 12/17/17 07:00 BP 139/69 12/17/17 07:00 Pulse Ox 96 12/17/17 07:00 Intake & Output 12/16/17 12/17/17 12/17/17 18:59 06:59 18:59 Intake Total 1024.488 702.027 164.899 Balance 1024.488 702.027 164.899 Weight 64.5 kg 66 kg Intake: Intake, IV Titration 624.488 702.027 164.899 Amount Heparin Sod,Pork in 0.45% 324.488 152.027 164.899 NaCl 25,000 unit In 0.45 % NaCl 1 500ml.bag @ 18 UNITS/KG/HR 24.49 mls/hr IV .[id number] [facility] Rx#: [id number] Sodium Chloride 0.9% 1, 300 550 000 ml @ 75 mls/hr IV . [id number] [facility] Rx#:[id number] Oral 400 Other: Voiding Method Toilet Toilet Toilet # Voids 2 1 Constitutional: No acute distress, conversant, pleasant Eyes: Anicteric sclerae, moist conjunctiva, no lid-lag PERRLA ENMT: NC/AT Oropharynx clear, no erythema, exudates Neck: Supple, FROM, no masses, or JVD No carotid bruits No thyromegaly Lungs: Clear to auscultation Clear to percussion Normal respiratory effort, no accessory muscle use Cardiovascular: Heart regular in rate and rhythm, No murmurs, gallops, or rubs No peripheral edema Abdominal: Soft Nontender, no guarding, rebound or rigidity Abdomen moving with respiration Normoactive bowel sounds No hepatomegaly, No splenomegaly No palpable mass No abdominal wall hernia noted Skin: Normal temperature, tone, texture, turgor No induration No subcutaneous nodules No rash, lesions No ulcers -Extremities: No digital cyanosis No clubbing Pedal pulses intact and symmetrical Radial pulses intact and symmetrical Ecchymoses about 7 cm on the back of her left leg, mild tenderness over the thigh Psychiatric: Alert and oriented to person, place and time Appropriate affect Intact judgement Neuro: Muscles Strength 5/5 in all 4 extremities Sensation to light touch grossly present throughout Cranial nerves II-XII grossly intact No focal sensory deficits - Labs CBC & Chem 7: 12/17/17 07:06 12/16/17 23:56 Labs: Abnormal Lab Results - Last 24 Hours (Table) 12/16/17 12/16/17 12/17/17 Range/Units 23:56 23:56 07:06 WBC 2.4 L (3.8-10.6) k/uL RBC 3.18 L (3.80-5.40) m/uL Hgb 9.2 L (11.4-16.0) gm/dL Hct 29.6 L (34.0-46.0) % RDW 16.3 H (11.5-15.5) % Plt Count 102 L (150-450) k/uL Neutrophils # 1.1 L (1.3-7.7) k/uL Lymphocytes # 0.8 L (1.0-4.8) k/uL PT (9.0-12.0) sec INR (<1.2) APTT 43.2 H (22.0-30.0) sec BUN 22 H (7-17) mg/dL 12/17/17 Range/Units 07:06 WBC (3.8-10.6) k/uL RBC (3.80-5.40) m/uL Hgb (11.4-16.0) gm/dL Hct (34.0-46.0) % RDW (11.5-15.5) % Plt Count (150-450) k/uL Neutrophils # (1.3-7.7) k/uL Lymphocytes # (1.0-4.8) k/uL PT 12.9 H (9.0-12.0) sec INR 1.4 H (<1.2) APTT 54.4 H (22.0-30.0) sec BUN (7-17) mg/dL Assessment and Plan Assessment: -DVT of THE left lower extremity, patient is already on Coumadin for history of right lower extremity DVT and PE with subtherapeutic INR on admission of 1.5, continue with heparin drip, and consult hematology: Pending Her INR today is 1.4, increase her Coumadin from 3 to 5 mg tonight -MDS, continue same treatment, patient has pancytopenia, follow-up as an outpatient -CHF continue with same treatment -History of Willow johnson, continue with Coumadin and beta rosalina, rate is controlled
[2017-12-17] MEDS: ONDANSETRON 4 MG TAB PO PRN (10:40)
[2017-12-17] MEDS: SODIUM CHLORIDE 0.9% 1,000 ML IV SCH ×2 (11:11→15:22)
[2017-12-17] MEDS: HEPARIN SOD,PORK IN 0.45% NACL 25,000 UNIT in 0.45% NACL 1 500ML.BAG IV SCH (15:04)
--- NOTE | 2017-12-17 16:03 | P.CONS ---
History of Present Illness - Reason for Consult Consult date: 12/17/17 Lower extremity DVT, myelodysplasia - History of Present Illness The patient is an 82-year-old white female with multiple medical problems. From the hematology standpoint, she has a known history of myelodysplasia which is controlled with low-dose Revlimid. She has been on this medication for more than 2 years. She has a history of pulmonary emboli about 50 years ago and has been on chronic anticoagulation since then. She has also had superficial thrombosis as well as different thrombosis of the right lower extremity, where she has known venous insufficiency and thrombo phlebitis. Her last episode related to that extremity, was more than 5 years ago. She does not remember of these episodes occurred in the setting of subtherapeutic INR or temporary cessation of warfarin, or not. She was recently admitted for shortness of breath, last month, and then discharged. She was continuing on warfarin at home with INR 2.5 in the cardiology office, about 2 weeks ago. The patient came in this time as she noted development of bruising in the left calf, along with swelling and some pain, increased by weightbearing. She stated that the pain in the area of bruising appeared to be thickened and tender. INR on admission was 1.6 and therefore subtherapeutic. Doppler showed extensive DVT from the external iliac vein down to the proximal calf veins. She was admitted and started on IV heparin. Consult was placed for further evaluation and recommendations. Blood counts showed pancytopenia, which is chronic. However all counts were in a safe range. Specifically platelets are up to 70 then came back up to 102 today. Review of Systems Constitutional: Reports fatigue Eyes: denies blurred vision, denies pain Ears: deny: decreased hearing, ear discharge, earache, tinnitus Ears, nose, mouth and throat: Denies headache, Denies sore throat Cardiovascular: Reports dyspnea on exertion, Reports irregular heart beat Respiratory: Reports dyspnea Gastrointestinal: Denies abdominal pain, Denies diarrhea, Denies nausea, Denies vomiting Genitourinary: Reports urinary frequency Menstruation: Reports postmenopausal Musculoskeletal: Reports as per HPI, Reports shooting leg pain Integumentary: Reports unusual bruising (Left calf) Neurological: Denies numbness, Denies weakness Psychiatric: Denies anxiety, Denies depression Endocrine: Denies fatigue, Denies weight change Hematologic/Lymphatic: Reports as per HPI, Reports thrombophilia Past Medical History Past Medical History: Atrial Fibrillation, Blood Disorder, Coronary Artery Disease (CAD), Chest Pain / Angina, Heart Failure, Deep Vein Thrombosis (DVT), Eye Disorder, GERD/Reflux, Hyperlipidemia, Hypertension, Myocardial Infarction ( PA), Osteoarthritis (OA), Pneumonia, Syncope, Thyroid Disorder, Vascular Disorder Additional Past Medical History / Comment(s): Pt recently diagnosed with Afib, MDS diagnosed in 2016 and takes oral chemo, DVTs multiple in R leg and once in L arm, PEs-showering pulmonary embolisms bilateral lungs, chronic thrombophlebitis, coronary blockages, leaky cardiac valves, AAA thoracic and abdominal both stented, duodenal ulcer, hiatal hernia, diverticular dx, colitis , IBS, H. Pylori, frequent diarrhea, chronic anemia, bronchitis, pneumonias, macular degeneration bilaterally, syncopal episodes. Last Myocardial Infarction Date:: UNKNOWN History of Any Multi-Drug Resistant Organisms: None Reported Past Surgical History: Appendectomy, Cholecystectomy, Heart Catheterization, Hysterectomy Additional Past Surgical History / Comment(s): 09/2015 thoracic aortic aneurysm stent, 07/2017 thoracic aortic aneurysm stent leaking and another stent placed as well as abdominal aortic aneurysm stented, cardiac caths, green field filter , bone marrow aspiration, exploratory lap for adhesions, EGD/colonoscopies with benign polypectomy, hemorrhoidectomy, R leg vein stripping. Past Anesthesia/Blood Transfusion Reactions: No Reported Reaction Smoking Status: Never smoker - Past Family History Father Family Medical History: Coronary Artery Disease (CAD), Myocardial Infarction (PA ) Mother Family Medical History: COPD, Coronary Artery Disease (CAD), Deep Vein Thrombosis (DVT) Brother(s) Family Medical History: Coronary Artery Disease (CAD), Myocardial Infarction (PA ) Sister(s) Family Medical History: Cancer Medications and Allergies Home Medications Medication Instructions Recorded Confirmed Type amLODIPine BESYLATE [Amlodipine 5 mg PO DAILY 09/30/15 12/15/17 History Besylate] Potassium Chloride [Klor-Con 10] 10 meq PO DAILY 07/20/16 12/15/17 History Levothyroxine Sodium [Synthroid] 100 mcg PO DAILY 09/10/16 12/15/17 History Metoprolol Succinate [Toprol XL] 100 mg PO DAILY 09/10/16 12/15/17 History Lenalidomide [Revlimid] 5 mg PO HS@199908/04/17 12/15/17 History Ondansetron [Zofran] 4 mg PO Q6HR PRN 08/04/17 12/15/17 History Diphenox-Atrop 2.5-0.025 mg 1 tab PO DAILY 11/19/17 12/15/17 History [Lomotil] Furosemide [Lasix] 20 mg PO BID@0900,1600 #60 tab 11/22/17 12/15/17 Rx Isosorbide Mononitrate ER [Imdur] 60 mg PO DAILY #30 tab.er.24h 11/22/17 Rx Warfarin [Coumadin] 2.5 mg PO SUMOTUWEFR 12/15/17 12/15/17 History Warfarin [Coumadin] 5 mg PO THSA 12/15/17 12/15/17 History Allergies Allergy/AdvReac Type Severity Reaction Status Date / Time black pepper Allergy Severe Anaphylaxis Verified 12/15/17 16:58 Influenza Virus Vaccines Allergy Severe Unknown Verified 12/15/17 20:32 peanut Allergy Severe Anaphylaxis Verified 12/15/17 16:58 atropine [From ] Allergy Unknown Verified 12/15/17 16:58 chocolate flavor Allergy Itching Verified 12/15/17 16:58 hyoscyamine [From ] Allergy Unknown Verified 12/15/17 16:58 Iodinated Contrast- Oral and Allergy Swelling Verified 12/15/17 16:58 IV Dye [Iodinated Contrast Media - IV Dye] phenobarbital [From ] Allergy Unknown Verified 12/15/17 16:58 propoxyphene [From Darvon] Allergy Unknown Verified 12/15/17 16:58 scopolamine [From ] Allergy Unknown Verified 12/15/17 16:58 Sulfa (Sulfonamide Allergy Rash/Hives Verified 12/15/17 16:58 Antibiotics) venom-honey bee Allergy Unknown Verified 12/15/17 16:58 [bee venom (honey bee)] acetaminophen [From Cookson] AdvReac Hallucinati Verified 12/15/17 16:58 ons belladonna alkaloids AdvReac Unknown Verified 12/15/17 16:58 hydrocodone [From Cookson] AdvReac Hallucinati Verified 12/15/17 16:58 ons simvastatin [From Zocor] AdvReac WEAKNESS Verified 12/15/17 16:58 SMELT Allergy Itching Uncoded 12/15/17 15:37 Physical Exam Vitals: Vital Signs Temp Pulse Resp BP Pulse Ox 12/17/17 15:00 97.4 F L 76 16 121/57 96 12/17/17 07:00 97.1 F L 74 16 139/69 96 12/17/17 06:08 79 132/64 94 L 12/16/17 22:25 98.2 F 73 16 139/59 97 12/16/17 16:00 70 18 Intake and Output 12/17/17 12/17/17 12/17/17 06:59 14:59 22:59 Intake Total 552.027 974.899 171.43 Balance 552.027 974.899 171.43 Intake: Intake, IV Titration 552.027 614.899 171.43 Amount Heparin Sod,Pork in 0.45% 152.027 164.899 171.43 NaCl 25,000 unit In 0.45 % NaCl 1 500ml.bag @ 18 UNITS/KG/HR 24.49 mls/hr IV .[id number] [facility] Rx#: [id number] Sodium Chloride 0.9% 1, 400 450 000 ml @ 75 mls/hr IV . [id number] [facility] Rx#:[id number] Oral 360 Other: Voiding Method Toilet Toilet # Voids 1 2 # Bowel Movements 2 Weight 66 kg - Constitutional General appearance: no acute distress - EENT Eyes: EOMI, PERRLA ENT: hearing grossly normal, normal oropharynx - Neck Neck: no lymphadenopathy - Respiratory Respiratory: bilateral: CTA - Cardiovascular Rhythm: irregularly irregular Heart sounds: normal: S1, S2 - Gastrointestinal General gastrointestinal: normal bowel sounds, soft - Integumentary Left lower extremity bruising, on calf - Neurologic Neurologic: CNII-XII intact - Musculoskeletal Musculoskeletal: generalized weakness, strength equal bilaterally - Psychiatric Psychiatric: A&O x's 3, appropriate affect Results CBC & Chem 7: 12/17/17 07:06 12/16/17 23:56 Labs: Abnormal Lab Results - Last 24 Hours (Table) 12/16/17 12/16/17 12/17/17 Range/Units 23:56 23:56 07:06 WBC 2.4 L (3.8-10.6) k/uL RBC 3.18 L (3.80-5.40) m/uL Hgb 9.2 L (11.4-16.0) gm/dL Hct 29.6 L (34.0-46.0) % RDW 16.3 H (11.5-15.5) % Plt Count 102 L (150-450) k/uL Neutrophils # 1.1 L (1.3-7.7) k/uL Lymphocytes # 0.8 L (1.0-4.8) k/uL PT (9.0-12.0) sec INR (<1.2) APTT 43.2 H (22.0-30.0) sec BUN 22 H (7-17) mg/dL 12/17/17 Range/Units 07:06 WBC (3.8-10.6) k/uL RBC (3.80-5.40) m/uL Hgb (11.4-16.0) gm/dL Hct (34.0-46.0) % RDW (11.5-15.5) % Plt Count (150-450) k/uL Neutrophils # (1.3-7.7) k/uL Lymphocytes # (1.0-4.8) k/uL PT 12.9 H (9.0-12.0) sec INR 1.4 H (<1.2) APTT 54.4 H (22.0-30.0) sec BUN (7-17) mg/dL CT scan - chest: report reviewed ( CTA from last month- negative for PE) Venous US: report reviewed Assessment and Plan (1) Deep vein thrombosis (DVT) of left lower extremity Narrative/Plan: The patient has known history of pulmonary emboli, and right lower extremity superficial and deep vein thrombosis. However that history is somewhat remote ( PE 50 years ago, and most recent right lower extremity went about 5+ years ago) the patient is on chronic anticoagulation with warfarin, for the above, and also from the cardiac standpoint. This event is felt to be acute. It does not seem to represent Coumadin failure as INR was subtherapeutic at the time of admission. Therefore I agree with bridging with thrombosis and resumption of warfarin to achieve a therapeutic INR and then continuation on that. Overall INR regulation has not been a major problem in the past. The patient is on Revlimid, which can increase the risk of thrombosis. However it is reasonable to continue the same, as long as the patient is going to be continuing on anticoagulation, and the Revlimid continues to be effective for her MDS. Current Visit: Yes Status: Acute Code(s): I82.402 - ACUTE EMBOLISM AND THOMBOS UNSP DEEP VEINS OF L LOW EXTREM SNOMED Code(s): 031043469 (2) Pancytopenia Narrative/Plan: The patient has pancytopenia due to underlying MDS, as well as likely due to medication effect. However all counts have been in a safe range chronically. Some drops to occur in the setting of acute illness, followed by recovery. There is no evidence of any bleeding. During this admission also, all counts remain in the safe range, with hemoglobin above 9, absolute neutrophil count of 1000, and platelet count above 50. Continue Revlimid, and outpatient follow-up. Current Visit: Yes Status: Acute Code(s): D61.818 - OTHER PANCYTOPENIA SNOMED Code(s): 539862834
[2017-12-17] MEDS: WARFARIN 5 MG TAB PO SCH (17:24)
[2017-12-17] MEDS: Lenalidomide [Revlimid] 5 MG PO SCH (20:14)
--- NOTE | 2017-12-17 21:23 | XR ---
EXAMINATION TYPE: XR chest 1V portable DATE OF EXAM: 12/17/2017 COMPARISON: 11/19/2017 HISTORY: Short of breath TECHNIQUE: Single frontal view of the chest is obtained. FINDINGS: Heart is enlarged. There is mild pulmonary congestion. There is stent in the descending th oracic aorta. There is aneurysm of the descending thoracic aorta. There is some blunting of the costo phrenic angles. IMPRESSION: There is mild heart failure that is the same or slightly increased compared to last exam .
[2017-12-17] MEDS ORDERED: FUROSEMIDE 10 MG/ML 2 ML VIAL IV STA (21:44)
[2017-12-18] MEDS: LEVOTHYROXINE 100 MCG TAB PO SCH (05:30)
[2017-12-18 07:31] LABS: Anisocytosis Slight; Basophils % (A) 1 %; Eosinophils # (A) 0.3 k/uL (0-0.7); Eosinophils % (A) 11 %; HGB 9.4 gm/dL (11.4-16.0); Hypochromasia Slight; Lymphocytes # (A) 0.9 k/uL (1.0-4.8); Lymphocytes % (A) 33 %; MCHC 31.2 g/dL (31.0-37.0); Mean Platelet Volume 8.7; Monocytes # (A) 0.2 k/uL (0-1.0); Monocytes % (A) 7 %; Neutrophils # (A) 1.2 k/uL (1.3-7.7); Neutrophils % (A) 45 %; Platelet Count 125 k/uL (150-450); RBC 3.22 m/uL (3.80-5.40); RDW 16.1 % (11.5-15.5); WBC 2.7 k/uL (3.8-10.6)
[2017-12-18 07:37] LABS: INR 1.6 (<1.2); Partial Thromboplastin Time 55.4 sec (22.0-30.0); Prothrombin Time 14.9 sec (9.0-12.0)
[2017-12-18 07:38] LABS: Calcium 9.8 mg/dL (8.4-10.2); Potassium 4.1 mmol/L (3.5-5.1)
[2017-12-18] MEDS: METOPROLOL SUCCINATE (ER) 100 MG TAB.ER.24H PO SCH (08:00)
[2017-12-18] MEDS: ISOSORBIDE MONONITRATE ER 60 MG TAB.ER.24H PO SCH (08:00)
[2017-12-18] MEDS: amLODIPine 5 MG TAB PO SCH (08:00)
--- NOTE | 2017-12-18 09:17 | P.PN ---
Subjective Progress Note Date: 12/18/17 Patient is seen and examined by me on that side No new complaints Objective - Vital Signs Vital signs: Vital Signs Temp 96.4 F L 12/18/17 07:00 Pulse 66 12/18/17 07:00 Resp 18 12/18/17 07:00 BP 141/72 12/18/17 07:00 Pulse Ox 99 12/18/17 07:00 Intake & Output 12/17/17 12/18/17 12/18/17 18:59 06:59 18:59 Intake Total 9382.753 1419 Balance 1615.488 5438 Weight 66 kg 68 kg Intake: Intake, IV Titration 786.329 600 Amount Heparin Sod,Pork in 0.45% 336.329 NaCl 25,000 unit In 0.45 % NaCl 1 500ml.bag @ 18 UNITS/KG/HR 24.49 mls/hr IV .[id number] [facility] Rx#: [id number] Sodium Chloride 0.9% 1, 450 600 000 ml @ 75 mls/hr IV . [id number] [facility] Rx#:[id number] Oral 360 600 Other: Voiding Method Toilet Toilet # Voids 2 1 # Bowel Movements 2 - Exam Constitutional: No acute distress, conversant, pleasant Eyes: Anicteric sclerae, moist conjunctiva, no lid-lag PERRLA ENMT: NC/AT Oropharynx clear, no erythema, exudates Neck: Supple, FROM, no masses, or JVD No carotid bruits No thyromegaly Lungs: Clear to auscultation Clear to percussion Normal respiratory effort, no accessory muscle use Cardiovascular: Heart regular in rate and rhythm, No murmurs, gallops, or rubs No peripheral edema Abdominal: Soft Nontender, no guarding, rebound or rigidity Abdomen moving with respiration Normoactive bowel sounds No hepatomegaly, No splenomegaly No palpable mass No abdominal wall hernia noted Skin: Normal temperature, tone, texture, turgor No induration No subcutaneous nodules No rash, lesions No ulcers Extremities: No digital cyanosis No clubbing Pedal pulses intact and symmetrical Radial pulses intact and symmetrical Normal gait and station No calf tenderness , ecchymoses of the left leg looks his stated Psychiatric: Alert and oriented to person, place and time Appropriate affect Intact judgement Neuro: Muscles Strength 5/5 in all 4 extremities Sensation to light touch grossly present throughout Cranial nerves II-XII grossly intact No focal sensory deficits - Labs CBC & Chem 7: 12/18/17 07:16 04 07:16 Labs: Abnormal Lab Results - Last 24 Hours (Table) 12/18/17 12/18/17 12/18/17 Range/Units 07:16 07:16 07:16 WBC 2.7 L (3.8-10.6) k/uL RBC 3.22 L (3.80-5.40) m/uL Hgb 9.4 L (11.4-16.0) gm/dL Hct 30.0 L (34.0-46.0) % RDW 16.1 H (11.5-15.5) % Plt Count 125 L (150-450) k/uL Neutrophils # 1.2 L (1.3-7.7) k/uL Lymphocytes # 0.9 L (1.0-4.8) k/uL PT 14.9 H (9.0-12.0) sec INR 1.6 H (<1.2) APTT 55.4 H (22.0-30.0) sec BUN 19 H (7-17) mg/dL Assessment and Plan Assessment: -DVT of THE left lower extremity, patient is already on Coumadin for history of right lower extremity DVT and PE with subtherapeutic INR on admission of 1.5, continue with heparin drip, and consult hematology is appreciated and they recommended to continue with Coumadin with a goal INR is 2-3 Her INR today is 1.6, increase her Coumadin from 3 to 5 mg tonight -MDS, continue same treatment, patient has pancytopenia, follow-up as an outpatient -CHF continue with same treatment -History of A. fib, continue with Coumadin and beta rosalina, rate is controlled
[2017-12-18] MEDS: HEPARIN SOD,PORK IN 0.45% NACL 25,000 UNIT in 0.45% NACL 1 500ML.BAG IV SCH (13:35)
[2017-12-18] MEDS: SODIUM CHLORIDE 0.9% 1,000 ML IV SCH (16:25)
[2017-12-18] MEDS: WARFARIN 5 MG TAB PO SCH (17:50)
[2017-12-18] MEDS: Lenalidomide [Revlimid] 5 MG PO SCH (20:18)
[2017-12-19] MEDS: LEVOTHYROXINE 100 MCG TAB PO SCH (05:48)
[2017-12-19 07:31] LABS: INR 1.9 (<1.2); Partial Thromboplastin Time 64.3 sec (22.0-30.0); Prothrombin Time 17.4 sec (9.0-12.0)
[2017-12-19 07:33] LABS: Anisocytosis Slight; Basophils % (A) 1 %; Eosinophils # (A) 0.4 k/uL (0-0.7); Eosinophils % (A) 16 %; HCT 28.5 % (34.0-46.0); HGB 8.8 gm/dL (11.4-16.0); Hypochromasia Moderate; Lymphocytes # (A) 0.9 k/uL (1.0-4.8); Lymphocytes % (A) 32 %; MCH 28.9 pg (25.0-35.0); MCHC 30.8 g/dL (31.0-37.0); MCV 93.8 fL (80.0-100.0); Mean Platelet Volume 9.3; Monocytes # (A) 0.2 k/uL (0-1.0); Monocytes % (A) 6 %; Neutrophils # (A) 1.1 k/uL (1.3-7.7); Neutrophils % (A) 41 %; Platelet Count 127 k/uL (150-450); RBC 3.04 m/uL (3.80-5.40); RDW 16.3 % (11.5-15.5); WBC 2.7 k/uL (3.8-10.6)
[2017-12-19 07:56] LABS: Calcium 10.1 mg/dL (8.4-10.2); Potassium 4.3 mmol/L (3.5-5.1)
[2017-12-19] MEDS: SODIUM CHLORIDE 0.9% 1,000 ML IV SCH ×2 (08:07→17:43)
[2017-12-19] MEDS: METOPROLOL SUCCINATE (ER) 100 MG TAB.ER.24H PO SCH (08:07)
[2017-12-19] MEDS: amLODIPine 5 MG TAB PO SCH (08:07)
[2017-12-19] MEDS: ISOSORBIDE MONONITRATE ER 60 MG TAB.ER.24H PO SCH (08:07)
--- NOTE | 2017-12-19 08:51 | P.PN ---
Subjective Patient is seen and examined by me on that side No new complaints Objective - Vital Signs Vital signs: Vital Signs Temp 99.0 F 12/18/17 22:15 Pulse 75 12/18/17 22:15 Resp 16 12/18/17 22:15 BP 138/46 12/18/17 22:15 Pulse Ox 97 12/18/17 22:15 Intake & Output 12/18/17 12/19/17 12/19/17 18:59 06:59 18:59 Intake Total 500.000 592 Balance 500.000 592 Weight 67.8 kg Intake: Intake, IV Titration 500.000 192 Amount Heparin Sod,Pork in 0.45% 500.000 NaCl 25,000 unit In 0.45 % NaCl 1 500ml.bag @ 18 UNITS/KG/HR 24.49 mls/hr IV .[id number] [facility] Rx#: [id number] Sodium Chloride 0.9% 1, 192 000 ml @ 75 mls/hr IV . [id number] [facility] Rx#:[id number] Oral 400 Other: Voiding Method Toilet Toilet # Voids 3 2 # Bowel Movements 2 - Exam Constitutional: No acute distress, conversant, pleasant Eyes: Anicteric sclerae, moist conjunctiva, no lid-lag PERRLA ENMT: NC/AT Oropharynx clear, no erythema, exudates Neck: Supple, FROM, no masses, or JVD No carotid bruits No thyromegaly Lungs: Clear to auscultation Clear to percussion Normal respiratory effort, no accessory muscle use Cardiovascular: Heart regular in rate and rhythm, No murmurs, gallops, or rubs No peripheral edema Abdominal: Soft Nontender, no guarding, rebound or rigidity Abdomen moving with respiration Normoactive bowel sounds No hepatomegaly, No splenomegaly No palpable mass No abdominal wall hernia noted Skin: Normal temperature, tone, texture, turgor No induration No subcutaneous nodules No rash, lesions No ulcers Extremities: No digital cyanosis No clubbing Pedal pulses intact and symmetrical Radial pulses intact and symmetrical Normal gait and station No calf tenderness , ecchymoses of the left leg looks his stated Psychiatric: Alert and oriented to person, place and time Appropriate affect Intact judgement Neuro: Muscles Strength 5/5 in all 4 extremities Sensation to light touch grossly present throughout Cranial nerves II-XII grossly intact No focal sensory deficits - Labs CBC & Chem 7: 12/19/17 06:57 12/19/17 06:57 Labs: Abnormal Lab Results - Last 24 Hours (Table) 12/19/17 12/19/17 12/19/17 Range/Units 06:57 06:57 06:57 WBC 2.7 L (3.8-10.6) k/uL RBC 3.04 L (3.80-5.40) m/uL Hgb 8.8 L (11.4-16.0) gm/dL Hct 28.5 L (34.0-46.0) % MCHC 30.8 L (31.0-37.0) g/dL RDW 16.3 H (11.5-15.5) % Plt Count 127 L (150-450) k/uL Neutrophils # 1.1 L (1.3-7.7) k/uL Lymphocytes # 0.9 L (1.0-4.8) k/uL PT 17.4 H (9.0-12.0) sec INR 1.9 H (<1.2) APTT 64.3 H (22.0-30.0) sec BUN 22 H (7-17) mg/dL Assessment and Plan Plan: -DVT of THE left lower extremity, patient is already on Coumadin for history of right lower extremity DVT and PE with subtherapeutic INR on admission of 1.5, continue with heparin drip, and consult hematology is appreciated and they recommended to continue with Coumadin with a goal INR is 2-3 Her INR today is 1.6, Coumadin was increased from 3 to 5 mg last night , c/w 4 mg today of coumadine -MDS, continue same treatment, patient has pancytopenia, follow-up as an outpatient -CHF continue with same treatment -History of A. fib, continue with Coumadin and beta rosalina, rate is controlled
[2017-12-19] MEDS: HEPARIN SOD,PORK IN 0.45% NACL 25,000 UNIT in 0.45% NACL 1 500ML.BAG IV SCH (10:40)
[2017-12-19] MEDS ORDERED: WARFARIN 2 MG TAB PO SCH (18:00)
[2017-12-19] MEDS: FUROSEMIDE 20 MG TAB PO SCH (18:47)
[2017-12-19] MEDS: Lenalidomide [Revlimid] 5 MG PO SCH (20:57)
[2017-12-20] MEDS: SODIUM CHLORIDE 0.9% 1,000 ML IV SCH (05:11)
[2017-12-20] MEDS: LEVOTHYROXINE 100 MCG TAB PO SCH (06:01)
[2017-12-20 07:51] LABS: Anisocytosis Slight; Basophils % (A) 1 %; Eosinophils # (A) 0.3 k/uL (0-0.7); Eosinophils % (A) 12 %; HCT 29.3 % (34.0-46.0); Hypochromasia Moderate; Lymphocytes # (A) 0.9 k/uL (1.0-4.8); Lymphocytes % (A) 30 %; MCH 28.6 pg (25.0-35.0); MCHC 30.7 g/dL (31.0-37.0); MCV 93.2 fL (80.0-100.0); Mean Platelet Volume 9.4; Monocytes # (A) 0.2 k/uL (0-1.0); Monocytes % (A) 8 %; Neutrophils # (A) 1.3 k/uL (1.3-7.7); Neutrophils % (A) 46 %; Platelet Count 140 k/uL (150-450); RBC 3.15 m/uL (3.80-5.40); RDW 16.5 % (11.5-15.5); WBC 2.9 k/uL (3.8-10.6)
[2017-12-20 07:58] LABS: INR 2.5 (<1.2); Partial Thromboplastin Time 58.7 sec (22.0-30.0); Prothrombin Time 22.7 sec (9.0-12.0)
[2017-12-20 08:07] LABS: Calcium 9.9 mg/dL (8.4-10.2); Potassium 3.7 mmol/L (3.5-5.1)
[2017-12-20 08:17] VITALS: BP 144/79; PULSE 80; TEMP 97.9
[2017-12-20] MEDS: METOPROLOL SUCCINATE (ER) 100 MG TAB.ER.24H PO SCH (08:36)
[2017-12-20] MEDS: ISOSORBIDE MONONITRATE ER 60 MG TAB.ER.24H PO SCH (08:36)
[2017-12-20] MEDS: amLODIPine 5 MG TAB PO SCH (08:36)
[2017-12-20] MEDS: FUROSEMIDE 20 MG TAB PO SCH (08:36)
[2017-12-20 08:52] VITALS: RESP 18
[2017-12-20] MEDS: ONDANSETRON 4 MG TAB PO PRN (09:00)
[2017-12-20] MEDS: HEPARIN SOD,PORK IN 0.45% NACL 25,000 UNIT in 0.45% NACL 1 500ML.BAG IV SCH (09:02)
--- NOTE | 2017-12-20 10:04 | XR ---
EXAMINATION TYPE: XR chest 2V DATE OF EXAM: 12/20/2017 COMPARISON: Chest x-ray December 17, 2017. CTA chest November 19, 2017. HISTORY: Cough and shortness of breath. TECHNIQUE: Frontal and lateral views of the chest are obtained. FINDINGS: There is chronic emphysematous change with small bilateral pleural effusions and associate d bibasilar atelectasis and/or infiltrate. The cardiac silhouette size is enlarged. 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 Metallic IVC filter i n the mid abdomen is noted on lateral view. The osseous structures are intact. IMPRESSION: Chronic emphysematous change and cardiomegaly with persistent small bilateral pleural ef fusions and associated bibasilar atelectasis and/or infiltrate. No significant change from most recen t chest x-ray.
[2017-12-20 11:33] VITALS: BMI 23.8
--- NOTE | 2017-12-20 14:31 | P.DS ---
Providers Date of admission: 12/15/17 18:11 Attending physician: Calvin Iqbal Consults: 12/15/17 18:12 Consult Physician Urgent Consulting Provider: Roman Agee Consult Reason/Comments: acute DVT Do you want consulting provider notified?: Yes 12/16/17 10:22 Consult Physician Routine Consulting Provider: Armando Maddox Consult Reason/Comments: DVT multiple Do you want consulting provider notified?: Yes Primary care physician: Rahul Larson [facility] Course: This is a pleasant 82 years old female with past medical history of MDS on treatment, pancytopenia, CHF with a recent admission to the hospital the last few days or weeks and RIGHT lower extremity DVT and PE on Coumadin who presents with left leg ecchymosis for the last 2 weeks associated with pain in the left thigh over the last 3 days she is an you for her she denies any chest pain shortness of breath or hemoptysis On admission patient had Doppler of the left lower extremity which shows DVT, INR on admission was 1.5, as her doctor was doing changes to her medications 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 De La Rosa on 12/24, also I spoke with the office and they told me she can walk-in tomorrow after 8:00 in the morning to check her INR with Dr. De La Rosa and his team, patient was informed with these instructions and she verbalized understanding and willing to follow them up pt as asymptomatic on the day of discharge, and she was cleared by hematology team for discharge There is also counseled about the risk of noncompliance and low INR less than 2 , including but not limited to risk of DVT, PE, and she verbalized understanding and acceptance -MDS, continue same treatment, patient has pancytopenia, follow-up as an outpatient -CHF continue with same treatment -History of A. fib, continue with Coumadin and beta rosalina, rate is controlled Problems and management plan I discussed with the patient and she verbalized understanding and acceptance to follow without Patient is clinically stable and can be discharged home however she needs follow -up as an outpatient - Exam Constitutional: No acute distress, conversant, pleasant Eyes: Anicteric sclerae, moist conjunctiva, no lid-lag PERRLA ENMT: NC/AT Oropharynx clear, no erythema, exudates Neck: Supple, FROM, no masses, or JVD No carotid bruits No thyromegaly Lungs: Clear to auscultation Clear to percussion Normal respiratory effort, no accessory muscle use Cardiovascular: Heart regular in rate and rhythm, No murmurs, gallops, or rubs No peripheral edema Abdominal: Soft Nontender, no guarding, rebound or rigidity Abdomen moving with respiration Normoactive bowel sounds No hepatomegaly, No splenomegaly No palpable mass No abdominal wall hernia noted Skin: Normal temperature, tone, texture, turgor No induration No subcutaneous nodules No rash, lesions No ulcers Extremities: No digital cyanosis No clubbing Pedal pulses intact and symmetrical Radial pulses intact and symmetrical Normal gait and station No calf tenderness , ecchymoses of the left leg looks his stated Psychiatric: Alert and oriented to person, place and time Appropriate affect Intact judgement Neuro: Muscles Strength 5/5 in all 4 extremities Sensation to light touch grossly present throughout Cranial nerves II-XII grossly intact No focal sensory deficits Patient Condition at Discharge: Good Plan - Discharge Summary Discharge Rx Participant: No New Discharge Prescriptions: New Warfarin [Coumadin] 4 mg PO DAILY@1800 #10 tab Continue amLODIPine BESYLATE [Amlodipine Besylate] 5 mg PO DAILY Potassium Chloride [Klor-Con 10] 10 meq PO DAILY Levothyroxine Sodium [Synthroid] 100 mcg PO DAILY Metoprolol Succinate [Toprol XL] 100 mg PO DAILY Lenalidomide [Revlimid] 5 mg PO HS@2000 Ondansetron [Zofran] 4 mg PO Q6HR PRN PRN Reason: Nausea Diphenox-Atrop 2.5-0.025 mg [Lomotil] 1 tab PO DAILY Furosemide [Lasix] 20 mg PO BID@0900,1600 #60 tab Isosorbide Mononitrate ER [Imdur] 60 mg PO DAILY #30 tab.er.24h Discontinued Warfarin [Coumadin] 5 mg PO THSA Warfarin [Coumadin] 2.5 mg PO SUMOTUWEFR Discharge Medication List amLODIPine BESYLATE [Amlodipine Besylate] 5 mg PO DAILY 09/30/15 [History] Potassium Chloride [Klor-Con 10] 10 meq PO DAILY 07/20/16 [History] Levothyroxine Sodium [Synthroid] 100 mcg PO DAILY 09/10/16 [History] Metoprolol Succinate [Toprol XL] 100 mg PO DAILY 09/10/16 [History] Lenalidomide [Revlimid] 5 mg PO HS@199908/04/17 [History] Ondansetron [Zofran] 4 mg PO Q6HR PRN 08/04/17 [History] Diphenox-Atrop 2.5-0.025 mg [Lomotil] 1 tab PO DAILY 11/19/17 [History] Furosemide [Lasix] 20 mg PO BID@0900,1600 #60 tab 11/22/17 [Rx] Isosorbide Mononitrate ER [Imdur] 60 mg PO DAILY #30 tab.er.24h 11/22/17 [Rx] Warfarin [Coumadin] 4 mg PO DAILY@1800 #10 tab 12/20/17 [Rx] Follow up Appointment(s)/Referral(s): Fabian Kay MD [Primary Care Provider] - 12/24/17 1:20 pm Patient Instructions/Handouts: Deep Venous Thrombosis (DC) Activity/Diet/Wound Care/Special Instructions: Please follow up with Dr. Oh office tomorrow on 12/21/2017, please walk-in any time after 8 AM to check your INR with the office and Dr. Oh Discharge Disposition: HOME SELF-CARE
== END 2017-12-20 15:16 | disposition home or self-care (01) | DRG 300 ==
LOC: EC 15:27 → 5MS5E 18:11
PROVIDERS: ADMIT Hospitalist; ATTEND Hospitalist
DX: I82.4Z1 Acute embolism and thrombosis of unspecified deep veins of right distal lower extremity (principal); D61.818 Other pancytopenia; I11.0 Hypertensive heart disease with heart failure; I48.91 Unspecified atrial fibrillation; I48.92 Unspecified atrial flutter; I50.9 Heart failure, unspecified; D46.9 Myelodysplastic syndrome, unspecified; E78.5 Hyperlipidemia, unspecified; K21.9 Gastro-esophageal reflux disease without esophagitis; E07.9 Disorder of thyroid, unspecified; H35.30 Unspecified macular degeneration; I25.10 Atherosclerotic heart disease of native coronary artery without angina pectoris; I25.2 Old myocardial infarction; I87.2 Venous insufficiency (chronic) (peripheral); K58.9 Irritable bowel syndrome, unspecified; R79.1 Abnormal coagulation profile; Z79.01 Long term (current) use of anticoagulants; Z82.49 Family history of ischemic heart disease and other diseases of the circulatory system; Z82.5 Family history of asthma and other chronic lower respiratory diseases; Z86.711 Personal history of pulmonary embolism; Z86.72 Personal history of thrombophlebitis; Z87.11 Personal history of peptic ulcer disease; Z90.710 Acquired absence of both cervix and uterus; M19.90 Unspecified osteoarthritis, unspecified site; Z79.890 Hormone replacement therapy; Z79.899 Other long term (current) drug therapy; Z91.030 Bee allergy status; Z91.041 Radiographic dye allergy status; Z88.5 Allergy status to narcotic agent; Z91.010 Allergy to peanuts; Z91.013 Allergy to seafood; Z88.2 Allergy status to sulfonamides; Z88.7 Allergy status to serum and vaccine; Z88.8 Allergy status to other drugs, medicaments and biological substances; Z91.018 Allergy to other foods; Z95.5 Presence of coronary angioplasty implant and graft
CPT/HCPCS: 36415; 71045; 71046; 80048; 80053; 85025; 85610; 85730; 93005; 96374; 99285

== ENCOUNTER → 2017-12-15 | Outpatient (CLI) | payer MEDICARE, BC ==
--- NOTE | 2017-12-15 15:37 | US ---
EXAMINATION TYPE: US venous doppler duplex LE LT DATE OF EXAM: 12/15/2017 3:11 PM COMPARISON: NONE CLINICAL HISTORY: M79.662,R22.42 PAIN AND SWELLING IN LT LOWER LIMB. Left leg pain, patient on blood thinners SIDE PERFORMED: Left TECHNIQUE: The lower extremity deep venous system is examined utilizing real time linear array sonog jose with graded compression, doppler sonography and color-flow sonography. VESSELS IMAGED: External Iliac Vein (EIV) Common Femoral Vein Deep Femoral Vein Greater Saphenous Vein * Femoral Vein Popliteal Vein Small Saphenous Vein * Proximal Calf Veins (* superficial vessels) Left Leg: Appears positive for DVT from EIV through proximal calf veins IMPRESSION: 1. Left lower extremity is positive for deep venous thrombosis. The office was notified.
== END | disposition home or self-care (01) ==
LOC: RADUSWWP 14:40
PROVIDERS: ATTEND Internal Medicine
DX: I82.402 Acute embolism and thrombosis of unspecified deep veins of left lower extremity (principal)

== ENCOUNTER → 2017-12-28 | Outpatient (CLI) | payer MEDICARE, BC ==
[2017-12-28 14:57] LABS: Prothrombin Time 26.9 sec (9.0-12.0)
== END | disposition home or self-care (01) ==
LOC: LABWHC1 14:12
PROVIDERS: ATTEND Internal Medicine
DX: I10 Essential (primary) hypertension (principal); D68.9 Coagulation defect, unspecified
CPT/HCPCS: 36415; 85610

== ENCOUNTER → 2018-01-06 | Outpatient (CLI) | payer MEDICARE, BC | END | disposition home or self-care (01) | LOC: LABWHC1 09:36 | PROVIDERS: ATTEND Surgery | DX: Z09 Encounter for follow-up examination after completed treatment for conditions other than malignant neoplasm (principal); Z86.79 Personal history of other diseases of the circulatory system; Z98.890 Other specified postprocedural states | CPT/HCPCS: 36415; 82565 ==

== ENCOUNTER → 2018-03-07 | Outpatient (CLI) | payer MEDICARE, BC ==
[2018-03-07 14:36] LABS: Albumin 3.9 g/dL (3.5-5.0); Calcium 10.7 mg/dL (8.4-10.2); Potassium 4.5 mmol/L (3.5-5.1); Total Bilirubin 0.6 mg/dL (0.2-1.3)
== END | disposition home or self-care (01) ==
LOC: LABWHC1 13:02
PROVIDERS: ATTEND Internal Medicine Interventional Cardiology
DX: I10 Essential (primary) hypertension (principal)
CPT/HCPCS: 36415; 80053

== ENCOUNTER 2018-08-17 05:37 | Emergency (ER) | payer BC, MEDICARE ==
[2018-08-17 05:43] VITALS: TEMP 98.1
[2018-08-17 06:13] LABS: Basophils % (A) 1 %; Eosinophils # (A) 0.1 k/uL (0-0.7); Eosinophils % (A) 3 %; HCT 37.7 % (34.0-46.0); HGB 12.1 gm/dL (11.4-16.0); Lymphocytes % (A) 22 %; MCH 30.6 pg (25.0-35.0); MCHC 32.2 g/dL (31.0-37.0); Mean Platelet Volume 7.7; Monocytes # (A) 0.3 k/uL (0-1.0); Monocytes % (A) 7 %; Neutrophils # (A) 2.8 k/uL (1.3-7.7); Neutrophils % (A) 64 %; Platelet Count 132 k/uL (150-450); RBC 3.97 m/uL (3.80-5.40); RDW 14.1 % (11.5-15.5); WBC 4.3 k/uL (3.8-10.6)
--- NOTE | 2018-08-17 06:22 | ED ---
General Adult HPI - General Source: patient, EMS, RN notes reviewed, old records reviewed Mode of arrival: EMS Limitations: no limitations <Krish Schultz - Last Filed: 08/17/18 07:07> <Sergey Loaiza - Last Filed: 08/17/18 10:30> - General Chief complaint: Chest Pain Stated complaint: Chest Pain Time Seen by Provider: 08/17/18 05:41 - History of Present Illness Initial comments: 83-year-old female presents for evaluation of central chest pain. Pain is been present for the past 2 days. Has been intermittent. At times. His been severe associated with nausea and diaphoresis as well as lightheadedness. Patient has no known history of coronary artery disease. She does have history of DVT and is currently on Coumadin. She has history of thoracic aortic aneurysm status post stenting. No known history of coronary artery disease. Patient ascribes the pain is central substernal chest pain which was low and has progressed to a burning sensation. She has no pain at the time my evaluation. Denies fever or chills. Denies cough. She had one episode of vomiting associated with her symptoms. (Krish Schultz) - Related Data Home Medications Medication Instructions Recorded Confirmed amLODIPine BESYLATE [Amlodipine 5 mg PO DAILY 09/30/15 08/17/18 Besylate] Potassium Chloride [Klor-Con 10] 10 meq PO DAILY 07/20/16 08/17/18 Levothyroxine Sodium [Synthroid] 100 mcg PO DAILY 09/10/16 08/17/18 Metoprolol Succinate [Toprol XL] 100 mg PO DAILY 09/10/16 08/17/18 Diphenox-Atrop 2.5-0.025 mg 2 tab PO TID PRN 11/19/17 08/17/18 [Lomotil] Warfarin [Coumadin] 2 mg PO MOWEFR 08/17/18 08/17/18 Warfarin [Coumadin] 4 mg PO SUTUTHSA 08/17/18 08/17/18 Previous Rx's Medication Instructions Recorded Furosemide [Lasix] 20 mg PO BID@0900,1600 #60 tab 11/22/17 Isosorbide Mononitrate ER [Imdur] 60 mg PO DAILY #30 tab.er.24h 11/22/17 Allergies Allergy/AdvReac Type Severity Reaction Status Date / Time black pepper Allergy Severe Anaphylaxis Verified 08/17/18 07:27 Influenza Virus Vaccines Allergy Severe Unknown Verified 08/17/18 07:27 peanut Allergy Severe Anaphylaxis Verified 08/17/18 07:27 atropine [From ] Allergy Unknown Verified 08/17/18 07:27 chocolate flavor Allergy Itching Verified 08/17/18 07:27 hyoscyamine [From ] Allergy Unknown Verified 08/17/18 07:27 Iodinated Contrast- Oral and Allergy Swelling Verified 08/17/18 07:27 IV Dye [Iodinated Contrast Media - IV Dye] phenobarbital [From ] Allergy Unknown Verified 08/17/18 07:27 propoxyphene [From Darvon] Allergy Unknown Verified 08/17/18 07:27 scopolamine [From ] Allergy Unknown Verified 08/17/18 07:27 Sulfa (Sulfonamide Allergy Rash/Hives Verified 08/17/18 07:27 Antibiotics) venom-honey bee Allergy Unknown Verified 08/17/18 07:27 [bee venom (honey bee)] acetaminophen [From Darragh] AdvReac Hallucinati Verified 08/17/18 07:27 ons belladonna alkaloids AdvReac Unknown Verified 08/17/18 07:27 hydrocodone [From Darragh] AdvReac Hallucinati Verified 08/17/18 07:27 ons simvastatin [From Zocor] AdvReac WEAKNESS Verified 08/17/18 07:27 SMELT Allergy Itching Uncoded 08/17/18 05:44 Review of Systems ROS Other: All systems not noted in ROS Statement are negative. <Krish Schultz - Last Filed: 08/17/18 07:07> ROS Other: All systems not noted in ROS Statement are negative. <Sergey Loaiza - Last Filed: 08/17/18 10:30> ROS Statement: Those systems with pertinent positive or pertinent negative responses have been documented in the HPI. 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 Pylori, frequent diarrhea, chronic anemia, bronchitis, pneumonias, macular degeneration bilaterally, syncopal episodes. Last Myocardial Infarction Date:: UNKNOWN History of Any Multi-Drug Resistant Organisms: None Reported Past Surgical History: Appendectomy, Cholecystectomy, Heart Catheterization, Hysterectomy Additional Past Surgical History / Comment(s): 09/2015 thoracic aortic aneurysm stent, 07/2017 thoracic aortic aneurysm stent leaking and another stent placed as well as abdominal aortic aneurysm stented, cardiac caths, green field filter , bone marrow aspiration, exploratory lap for adhesions, EGD/colonoscopies with benign polypectomy, hemorrhoidectomy, R leg vein stripping. Past Anesthesia/Blood Transfusion Reactions: No Reported Reaction Past Psychological History: No Psychological Hx Reported Smoking Status: Never smoker Past Alcohol Use History: None Reported Past Drug Use History: None Reported - Past Family History Father Family Medical History: Coronary Artery Disease (CAD), Myocardial Infarction (AR ) Mother Family Medical History: COPD, Coronary Artery Disease (CAD), Deep Vein Thrombosis (DVT) Brother(s) Family Medical History: Coronary Artery Disease (CAD), Myocardial Infarction (AR ) Sister(s) Family Medical History: Cancer <MarionKrish - Last Filed: 08/17/18 07:07> General Exam Limitations: no limitations General appearance: alert, in no apparent distress Head exam: Present: atraumatic, normocephalic Eye exam: Present: normal appearance, PERRL, EOMI ENT exam: Present: normal exam Neck exam: Present: normal inspection. Absent: tenderness, meningismus Respiratory exam: Present: normal lung sounds bilaterally. Absent: respiratory distress, wheezes Cardiovascular Exam: Present: regular rate, normal rhythm GI/Abdominal exam: Present: soft. Absent: distended, tenderness Extremities exam: Present: normal inspection, full ROM, normal capillary refill. Absent: pedal edema Neurological exam: Present: alert, oriented X3, CN II-XII intact. Absent: motor sensory deficit Psychiatric exam: Present: normal affect, normal mood Skin exam: Present: warm, dry, intact. Absent: cyanosis, diaphoretic <Krish Schultz - Last Filed: 08/17/18 07:07> Course <Krish Schultz - Last Filed: 08/17/18 07:07> <LoaizaSergey - Last Filed: 08/17/18 10:30> Vital Signs 08/17/18 08/17/18 08/17/18 05:38 05:41 05:50 Temperature 98.1 F Pulse Rate 82 86 Respiratory 18 11 L Rate Blood Pressure 179/79 179/79 O2 Sat by Pulse 97 99 99 Oximetry 08/17/18 08/17/18 08/17/18 06:00 06:10 06:20 Temperature Pulse Rate 80 Respiratory 19 Rate Blood Pressure 179/79 179/79 164/83 O2 Sat by Pulse 95 Oximetry 08/17/18 08/17/18 08/17/18 06:30 06:40 06:50 Temperature Pulse Rate 72 71 68 Respiratory 15 15 15 Rate Blood Pressure 164/83 162/61 162/61 O2 Sat by Pulse 96 95 98 Oximetry 08/17/18 08/17/18 08/17/18 07:00 07:10 07:20 Temperature Pulse Rate 70 70 86 Respiratory 21 12 14 Rate Blood Pressure 162/61 161/85 161/85 O2 Sat by Pulse 99 Oximetry 08/17/18 08/17/18 08/17/18 07:21 07:30 07:40 Temperature Pulse Rate 86 Respiratory 18 Rate Blood Pressure 161/85 161/85 161/85 O2 Sat by Pulse 100 Oximetry 08/17/18 08/17/18 08/17/18 07:50 07:56 08:00 Temperature Pulse Rate 98 94 91 Respiratory 32 H 20 17 Rate Blood Pressure 161/85 184/80 184/80 O2 Sat by Pulse 83 L Oximetry 08/17/18 08/17/18 08/17/18 08:10 08:20 08:30 Temperature Pulse Rate 84 82 84 Respiratory 18 21 24 Rate Blood Pressure 165/81 177/82 177/82 O2 Sat by Pulse 99 98 Oximetry 08/17/18 08/17/18 08/17/18 08:40 08:50 09:00 Temperature Pulse Rate 73 77 80 Respiratory 12 16 20 Rate Blood Pressure 143/73 143/73 143/73 O2 Sat by Pulse 99 100 100 Oximetry 08/17/18 08/17/18 08/17/18 09:10 09:20 09:30 Temperature Pulse Rate 74 84 75 Respiratory 16 21 15 Rate Blood Pressure 163/73 163/73 163/73 O2 Sat by Pulse 99 99 99 Oximetry 08/17/18 08/17/18 08/17/18 09:40 09:50 10:00 Temperature Pulse Rate 76 69 71 Respiratory 15 15 15 Rate Blood Pressure 153/73 153/73 153/73 O2 Sat by Pulse 99 100 99 Oximetry - Reevaluation(s) Reevaluation #1: 08/17/18 07:08 Patient's care is signed out at shift change to Dr. Loaiza. (Krish Schultz) 08/17/18 09:07 Patient reevaluated by myself, Dr. Loaiza. Patient resting comfortably in bed. Radial and pedal pulses 2/[address] report reviewed. Patient and family updated. Patient states she did have her stent replaced approximately urine and half ago at [facility] in [place], Dr. Tapia. Case was discussed with Dr. Millan who is familiar with this patient. He feels symptoms are unlikely to be from coronary artery disease secondary to recent heart catheterizations without blockage. He does recommend discussing case with [facility] or reviewing films. 08/17/18 09:23 Dr. tapia from [facility] was contacted and is reportedly in a meeting and will call back. 08/17/18 10:22 Case was discussed with Dr. Cruz at [facility] who states that patient is having chest discomfort she should be transferred to ER for evaluation. Patient and family updated. 08/17/18 10:30 Case discussed with transfer team, Radha Horan. Case also discussed with who will accept transfer. She does not feel reversal of anticoagulation is necessary at this time. (Sergey Loaiza) EKG Findings - EKG Comments: EKG Findings:: EKG: Sinus rhythm with first-degree AV block, left axis deviation , left bundle branch block, rate of 83, ME interval 234, QRS duration 170, QTC 495, no significant change compared to prior EKG in December 2017. <Krish Schultz - Last Filed: 08/17/18 07:07> Medical Decision Making - Lab Data Result diagrams: 08/17/18 05:49 08/17/18 05:49 <ZairaraymundoKrish Bridges - Last Filed: 08/17/18 07:07> - Lab Data Result diagrams: 08/17/18 05:49 08/17/18 05:49 - Radiology Data Radiology results: report reviewed (Computed tomography scan of the chest shows descending thoracic aortic aneurysm. Hyperdense foci within the [place] aorta mechanical service representative of endoleak. This is not seen at the origin or distal aspect of the graft. No feeding vessels are identified.), image reviewed (Chest x-ray shows tortuous aneurysmal aorta with stent placed.) <Sergey Loaiza - Last Filed: 08/17/18 10:30> - Lab Data Lab Results 08/17/18 08/17/18 08/17/18 Range/Units 05:49 05:49 05:49 WBC 4.3 (3.8-10.6) k/uL RBC 3.97 (3.80-5.40) m/uL Hgb 12.1 (11.4-16.0) gm/dL Hct 37.7 (34.0-46.0) % MCV 95.0 (80.0-100.0) fL MCH 30.6 (25.0-35.0) pg MCHC 32.2 (31.0-37.0) g/dL RDW 14.1 (11.5-15.5) % Plt Count 132 L (150-450) k/uL Neutrophils % 64 % Lymphocytes % 22 % Monocytes % 7 % Eosinophils % 3 % Basophils % 1 % Neutrophils # 2.8 (1.3-7.7) k/uL Lymphocytes # 1.0 (1.0-4.8) k/uL Monocytes # 0.3 (0-1.0) k/uL Eosinophils # 0.1 (0-0.7) k/uL Basophils # 0.0 (0-0.2) k/uL PT (9.0-12.0) sec INR (<1.2) APTT (22.0-30.0) sec Sodium 140 (137-145) mmol/L Potassium 4.7 (3.5-5.1) mmol/L Chloride 106 (98-107) mmol/L Carbon Dioxide 27 (22-30) mmol/L Anion Gap 7 mmol/L BUN 29 H (7-17) mg/dL Creatinine 0.81 (0.52-1.04) mg/dL Est GFR (CKD-EPI)AfAm 78 (>60 ml/min/1.73 sqM) Est GFR (CKD-EPI)NonAf 68 (>60 ml/min/1.73 sqM) Glucose 98 (74-99) mg/dL Calcium 10.9 H (8.4-10.2) mg/dL Magnesium 2.3 (1.6-2.3) mg/dL Total Bilirubin 0.6 (0.2-1.3) mg/dL AST 22 (14-36) U/L ALT 12 (9-52) U/L Alkaline Phosphatase 94 (38-126) U/L Total Creatine Kinase 26 L (30-135) U/L CK-MB (CK-2) 0.8 (0.0-2.4) ng/mL CK-MB (CK-2) Rel Index 3.1 Troponin I 0.032 (0.000-0.034) ng/mL NT-Pro-B Natriuret Pep pg/mL Total Protein 7.1 (6.3-8.2) g/dL Albumin 3.7 (3.5-5.0) g/dL 08/17/18 08/17/18 Range/Units 05:49 05:49 WBC (3.8-10.6) k/uL RBC (3.80-5.40) m/uL Hgb (11.4-16.0) gm/dL Hct (34.0-46.0) % MCV (80.0-100.0) fL MCH (25.0-35.0) pg MCHC (31.0-37.0) g/dL RDW (11.5-15.5) % Plt Count (150-450) k/uL Neutrophils % % Lymphocytes % % Monocytes % % Eosinophils % % Basophils % % Neutrophils # (1.3-7.7) k/uL Lymphocytes # (1.0-4.8) k/uL Monocytes # (0-1.0) k/uL Eosinophils # (0-0.7) k/uL Basophils # (0-0.2) k/uL PT 21.3 H (9.0-12.0) sec INR 2.2 H (<1.2) APTT 27.2 (22.0-30.0) sec Sodium (137-145) mmol/L Potassium (3.5-5.1) mmol/L Chloride (98-107) mmol/L Carbon Dioxide (22-30) mmol/L Anion Gap mmol/L BUN (7-17) mg/dL Creatinine (0.52-1.04) mg/dL Est GFR (CKD-EPI)AfAm (>60 ml/min/1.73 sqM) Est GFR (CKD-EPI)NonAf (>60 ml/min/1.73 sqM) Glucose (74-99) mg/dL Calcium (8.4-10.2) mg/dL Magnesium (1.6-2.3) mg/dL Total Bilirubin (0.2-1.3) mg/dL AST (14-36) U/L ALT (9-52) U/L Alkaline Phosphatase (38-126) U/L Total Creatine Kinase (30-135) U/L CK-MB (CK-2) (0.0-2.4) ng/mL CK-MB (CK-2) Rel Index Troponin I (0.000-0.034) ng/mL NT-Pro-B Natriuret Pep 1320 pg/mL Total Protein (6.3-8.2) g/dL Albumin (3.5-5.0) g/dL Disposition <Krish Schultz - Last Filed: 08/17/18 07:07> Is patient prescribed a controlled substance at d/c from ED?: No Time of Disposition: 10:23 - Out of Hospital Transfer - Req. Specs Out of Hospital Transfer - Requested Specifics: Other Emergency Center <Sergey Loaiza - Last Filed: 08/17/18 10:30> Clinical Impression: Endoleak of aortic graft, Chest pain Disposition: OTHER INSTITUTION NOT DEFINED Referrals: Fabian Kay MD [Primary Care Provider] - 1-2 days
[2018-08-17 06:27] LABS: INR 2.2 (<1.2); Partial Thromboplastin Time 27.2 sec (22.0-30.0); Prothrombin Time 21.3 sec (9.0-12.0)
[2018-08-17 06:30] LABS: Albumin 3.7 g/dL (3.5-5.0); Calcium 10.9 mg/dL (8.4-10.2); Magnesium 2.3 mg/dL (1.6-2.3); Potassium 4.7 mmol/L (3.5-5.1); Total Bilirubin 0.6 mg/dL (0.2-1.3); Total Protein 7.1 g/dL (6.3-8.2)
--- NOTE | 2018-08-17 06:34 | XR ---
EXAM: XR Chest, 2 Views CLINICAL HISTORY: ITS.REASON XR Reason: Chest Pain TECHNIQUE: Frontal and lateral views of the chest. COMPARISON: 11/19/17, 12/17/17, and 12/20/17 FINDINGS: Lungs: Unremarkable. No consolidation. Pleural space: Unremarkable. No pneumothorax. Heart: Stable cardiomegaly. Mediastinum: Unremarkable. Bones/joints: Degenerative changes of the spine. Vasculature: Tortuous aneurysmal aorta with evidence of endovascular stent repair. No gross significant change compared to 11/19/17. IMPRESSION: Tortuous aneurysmal aorta with evidence of endovascular stent repair. No gross significant change compared to 11/19/17.
[2018-08-17 06:51] LABS: Creatine Kinase MB 0.8 ng/mL (0.0-2.4); Troponin I 0.032 ng/mL (0.000-0.034)
[2018-08-17] MEDS ORDERED: diphenhydrAMINE 50 MG/ML 1 ML VIAL IVP STA (07:00)
[2018-08-17] MEDS ORDERED: FAMOTIDINE 20 MG/2 ML VIAL IV STA (07:00)
[2018-08-17] MEDS ORDERED: methylPREDNISolone SOD SUCCI 125 MG/2 ML VIAL IV STA (07:00)
[2018-08-17] MEDS: NITROGLYCERIN SL TABS 0.4 MG TAB SUBLINGUAL PRN ×3 (07:58→08:17)
--- NOTE | 2018-08-17 08:28 | CT ---
EXAMINATION TYPE: CT angio thor/abd pel aorta DATE OF EXAM: 08/17/2018 COMPARISON: 08/04/2017 HISTORY: Chest pain, history of aortic stent CT DLP: 1893 mGycm. Automated Exposure Control for Dose Reduction was Utilized. CONTRAST: CT scan of the thorax, abdomen and pelvis is performed without and with IV Contrast, patient injected with 100 mL of Isovue 370. FINDINGS: LUNGS: The lungs are grossly clear, there is no concerning parenchymal mass or nodule identified. T here is no pleural effusion or pneumothorax seen. The tracheobronchial tree is patent. MEDIASTINUM: There are no greater than 1 cm hilar or mediastinal lymph nodes. No pericardial effusi on is seen. Severe coronary artery calcifications are seen within the left main and left anterior de scending coronary arteries and to a lesser degree within the remaining coronary arteries. Heart is mi ldly enlarged. VASCULATURE: The precontrast images demonstrate no evidence of intramural hematoma. Aneurysmal dilata tion of the descending thoracic aorta beginning at the aortic arch and aortic isthmus obliquely measu res up to 7.4 x 6.2 cm on series 501 image 32, overall unchanged from the prior of 08/04/2017 when me asured in a similar fashion. One measured as measured on the prior this again measures 5.8 cm on seri es 501 image 36. Crescentic atelectasis is seen surrounding the descending thoracic aortic aneurysm. The aortic stent graft begins in the ascending thoracic aorta extends through the aortic arch and jovany cending thoracic aorta into the upper abdominal aorta. On series 601 images 17 through 21 there are a reas of high density not seen on the precontrast images indicating leak. This is within the midportio n of the graft not seen at the distal aspect nor the origin 3 no feeding vessels are identified clear ly. Within the abdominal aorta and its branches there is severe atherosclerosis. LIVER/GB: Similar-appearing hypoattenuated too small to accurately characterize hepatic dome lesion i s noted. Gallbladder is not identified and may be contracted or surgically absent PANCREAS: No significant abnormality is seen. SPLEEN: No significant abnormality is seen. ADRENALS: There is a heterogenous right adrenal gland mass containing a focus of macroscopic fat as s een on the prior exam measuring approximately 2.8 cm, unchanged in size from the prior. KIDNEYS: On the unenhanced images there are no cholelithiasis. Enhanced images demonstrate lobular pavithra rders bilaterally that may relate to persistent lobulation, multifocal prior injury, or medical renal disease. There is a left renal cyst measuring 3.9 cm as well as multiple bilateral subcentimet er too small to accurately characterize renal lesions. No hydronephrosis of either kidney. BOWEL: There is a small hiatal hernia present. Numerous sigmoid diverticula are seen without pericolo augustine fat stranding. There are slightly engorged vasa recta surrounding the sigmoid colon that can be s een in chronic colitis. Duodenal diverticulum is incidentally seen. GENITAL ORGANS: Uterus appears surgically absent. LYMPH NODES: No greater than 1cm abdominal or pelvic lymph nodes are appreciated. OSSEOUS STRUCTURES: Grade 1 anterolisthesis of L4 on L5 is noted. Multilevel mild degenerative change s of the spine are seen. OTHER: Inferior vena cava filter is incidentally seen. Small fat filled umbilical hernia and diastase s recti are incidentally noted. IMPRESSION: 1. Descending thoracic aortic aneurysm with intraluminal endograft demonstrating numerous hyperdense foci within the [place] aorta [employer] business representative of endoleak however the type of endoleak is not clearly d efined. These foci of hyperdensity are not seen at the origin or distal aspect of the graft. No feedi ng vessels are identified. Caliber appears similar to the prior of 08/04/2017 when measured obliquely measures up to 7.4 cm. 2. Heterogenous right adrenal gland appearing stable from the prior with focal macroscopic fat. 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 3. Severe coronary artery calcifications. 4. Small hiatal hernia.
[2018-08-17] MEDS ORDERED: LABETALOL SYRINGE 5 MG/ML IVP STA (12:12)
[2018-08-17 12:38] VITALS: BP 180/79; PULSE 87; RESP 18
== END 2018-08-17 12:34 | disposition other institution (70) ==
LOC: EC 05:37
DX: T82.330A Leakage of aortic (bifurcation) graft (replacement), initial encounter (principal); I48.91 Unspecified atrial fibrillation; R07.2 Precordial pain; I25.10 Atherosclerotic heart disease of native coronary artery without angina pectoris; I11.0 Hypertensive heart disease with heart failure; I50.9 Heart failure, unspecified; I25.2 Old myocardial infarction; E07.9 Disorder of thyroid, unspecified; I71.2 Thoracic aortic aneurysm, without rupture; Z86.718 Personal history of other venous thrombosis and embolism; Z86.711 Personal history of pulmonary embolism; Z86.2 Personal history of diseases of the blood and blood-forming organs and certain disorders involving the immune mechanism; Z95.818 Presence of other cardiac implants and grafts; Z82.49 Family history of ischemic heart disease and other diseases of the circulatory system; Z79.01 Long term (current) use of anticoagulants; Z79.899 Other long term (current) drug therapy; Z91.018 Allergy to other foods; Z88.7 Allergy status to serum and vaccine; Z91.010 Allergy to peanuts; Z88.8 Allergy status to other drugs, medicaments and biological substances; Z91.041 Radiographic dye allergy status; Z88.2 Allergy status to sulfonamides; Z91.030 Bee allergy status; Z88.6 Allergy status to analgesic agent; Z88.5 Allergy status to narcotic agent; Z91.013 Allergy to seafood; Z92.21 Personal history of antineoplastic chemotherapy
CPT/HCPCS: 36415; 93005; 83880; 80053; 82550; 82553; 83735; 84484; 85025; 85610; 85730; 71046; 71275; 74174; 99285; 96374; 96375 ×3; J1200; J2930; Q9967

== ENCOUNTER 2018-12-18 10:53 | Inpatient (IN) | payer MEDICARE, BC ==
[2018-12-18] MEDS ORDERED: ASPIRIN 81 MG PO STA (11:17)
[2018-12-18] MEDS ORDERED: ALBUTEROL NEBULIZED 2.5 MG/3 ML INHALATION STA (11:17)
--- NOTE | 2018-12-18 11:19 | ED ---
General Adult HPI - General Chief complaint: Shortness of Breath Stated complaint: Sob Time Seen by Provider: 12/18/18 11:06 Source: patient, family, RN notes reviewed Mode of arrival: wheelchair Limitations: no limitations - History of Present Illness Initial comments: Patient is a pleasant 83-year-old female presenting to the emergency Department with complaints of difficulty in breathing. Symptoms started over a week ago and have progressed. Patient does have cough and feels like there may be some chest congestion however minimal sputum. Patient is having some chest tightness/pressure. Patient does have a history of both asthma and congestive heart failure. No leg pain or leg swelling. Symptoms are worsened with lying down. No fevers. Patient did see her doctor last week and was prescribed steroids and erythromycin without improvement of symptoms. - Related Data Home Medications Medication Instructions Recorded Confirmed amLODIPine BESYLATE [Amlodipine 5 mg PO DAILY 09/30/15 12/18/18 Besylate] Potassium Chloride [Klor-Con 10] 10 meq PO DAILY 07/20/16 12/18/18 Levothyroxine Sodium [Synthroid] 100 mcg PO DAILY 09/10/16 12/18/18 Metoprolol Succinate [Toprol XL] 100 mg PO DAILY 09/10/16 12/18/18 Diphenox-Atrop 2.5-0.025 mg 2 tab PO TID PRN 11/19/17 12/18/18 [Lomotil] Warfarin [Coumadin] 2 mg PO MOWEFR 08/17/18 12/18/18 Warfarin [Coumadin] 4 mg PO SUTUTHSA 08/17/18 12/18/18 Previous Rx's Medication Instructions Recorded Furosemide [Lasix] 20 mg PO BID@0900,1600 #60 tab 11/22/17 Isosorbide Mononitrate ER [Imdur] 60 mg PO DAILY #30 tab.er.24h 11/22/17 Allergies Allergy/AdvReac Type Severity Reaction Status Date / Time black pepper Allergy Severe Anaphylaxis Verified 12/18/18 11:26 Influenza Virus Vaccines Allergy Severe Unknown Verified 12/18/18 11:26 peanut Allergy Severe Anaphylaxis Verified 12/18/18 11:26 atropine [From ] Allergy Unknown Verified 12/18/18 11:26 chocolate flavor Allergy Itching Verified 12/18/18 11:26 hyoscyamine [From ] Allergy Unknown Verified 12/18/18 11:26 Iodinated Contrast- Oral and Allergy Swelling Verified 12/18/18 11:26 IV Dye [Iodinated Contrast Media - IV Dye] phenobarbital [From ] Allergy Unknown Verified 12/18/18 11:26 propoxyphene [From Darvon] Allergy Unknown Verified 12/18/18 11:26 scopolamine [From ] Allergy Unknown Verified 12/18/18 11:26 Sulfa (Sulfonamide Allergy Rash/Hives Verified 12/18/18 11:26 Antibiotics) venom-honey bee Allergy Unknown Verified 12/18/18 11:26 [bee venom (honey bee)] acetaminophen [From Patterson] AdvReac Hallucinati Verified 12/18/18 11:26 ons belladonna alkaloids AdvReac Unknown Verified 12/18/18 11:26 hydrocodone [From Patterson] AdvReac Hallucinati Verified 12/18/18 11:26 ons simvastatin [From Zocor] AdvReac WEAKNESS Verified 12/18/18 11:26 SMELT Allergy Itching Uncoded 12/18/18 10:57 Review of Systems ROS Statement: Those systems with pertinent positive or pertinent negative responses have been documented in the HPI. ROS Other: All systems not noted in ROS Statement are negative. Constitutional: Denies: fever Eyes: Denies: eye pain ENT: Denies: ear pain Respiratory: Reports: cough, dyspnea Cardiovascular: Reports: as per HPI, chest pain Endocrine: Denies: fatigue Gastrointestinal: Denies: abdominal pain Genitourinary: Denies: dysuria Musculoskeletal: Denies: back pain Skin: Denies: rash Neurological: Denies: weakness Past Medical History Past Medical History: Atrial Fibrillation, Blood Disorder, Coronary Artery Disease (CAD), Chest Pain / Angina, Heart Failure, Deep Vein Thrombosis (DVT), Eye Disorder, GERD/Reflux, Hyperlipidemia, Hypertension, Myocardial Infarction ([place]), Osteoarthritis (OA), Pneumonia, Syncope, Thyroid Disorder, Vascular Disorder Additional Past Medical History / Comment(s): Pt recently diagnosed with Afib, MDS diagnosed in 2016 and takes oral chemo, DVTs multiple in R leg and once in L arm, PEs-showering pulmonary embolisms bilateral lungs, chronic thrombophlebitis, coronary blockages, leaky cardiac valves, AAA thoracic and abdominal both stented, duodenal ulcer, hiatal hernia, diverticular dx, colitis, IBS, H. Pylori, frequent diarrhea, chronic anemia, bronchitis, pneumonias, macular degeneration bilaterally, syncopal episodes. Last Myocardial Infarction Date:: UNKNOWN History of Any Multi-Drug Resistant Organisms: None Reported Past Surgical History: Appendectomy, Cholecystectomy, Heart Catheterization, Hysterectomy Additional Past Surgical History / Comment(s): 09/2015 thoracic aortic aneurysm stent, 07/2017 thoracic aortic aneurysm stent leaking and another stent placed as well as abdominal aortic aneurysm stented, cardiac caths, green field filter, bone marrow aspiration, exploratory lap for adhesions, EGD/colonoscopies with b enign polypectomy, hemorrhoidectomy, R leg vein stripping. Past Anesthesia/Blood Transfusion Reactions: No Reported Reaction Past Psychological History: No Psychological Hx Reported Smoking Status: Never smoker Past Alcohol Use History: None Reported Past Drug Use History: None Reported - Past Family History Father Family Medical History: Coronary Artery Disease (CAD), Myocardial Infarction ([place]) Mother Family Medical History: COPD, Coronary Artery Disease (CAD), Deep Vein Thrombosis (DVT) Brother(s) Family Medical History: Coronary Artery Disease (CAD), Myocardial Infarction ([place]) Sister(s) Family Medical History: Cancer General Exam Limitations: no limitations General appearance: alert, in no apparent distress Head exam: Present: atraumatic Eye exam: Present: normal appearance, PERRL ENT exam: Present: normal oropharynx Neck exam: Present: normal inspection Respiratory exam: Present: wheezes Cardiovascular Exam: Present: regular rate, normal rhythm Expanded Peripheral pulses: 2+: Dorsalis Pedis (R), Dorsalis Pedis (L) GI/Abdominal exam: Present: soft. Absent: tenderness Extremities exam: Present: normal inspection. Absent: pedal edema, calf tenderness Neurological exam: Present: alert Psychiatric exam: Present: normal affect, normal mood Skin exam: Present: normal color Course Vital Signs 12/18/18 12/18/18 12/18/18 10:57 11:35 11:43 Temperature 97.9 F Pulse Rate 64 80 88 Respiratory 18 Rate Blood Pressure 127/65 O2 Sat by Pulse 98 Oximetry 12/18/18 12/18/18 12/18/18 12:32 12:36 14:00 Temperature 98.3 F Pulse Rate 67 80 Respiratory 18 20 18 Rate Blood Pressure 133/92 141/75 O2 Sat by Pulse 97 97 Oximetry EKG Findings - EKG Comments: EKG Findings:: Atrial flutter 82. For screening AV block with a CO of 296. QRS 156. QT 422. QTC 493. Normal axis. Left bundle branch block. Medical Decision Making - Medical Decision Making Patient reevaluated and feels much better. Patient still has wheezing however not as significant. Patient and family updated on results and plan. Case was discussed in detail with Dr. Iqbal, covering for Dr. baker, who will admit. - Lab Data Result diagrams: 12/18/18 12:46 12/18/18 12:46 Lab Results 12/18/18 12/18/18 12/18/18 Range/Units 12:46 12:46 12:46 WBC 10.1 (3.8-10.6) k/uL RBC 4.70 (3.80-5.40) m/uL Hgb 13.7 (11.4-16.0) gm/dL Hct 43.2 (34.0-46.0) % MCV 92.0 (80.0-100.0) fL MCH 29.1 (25.0-35.0) pg MCHC 31.6 (31.0-37.0) g/dL RDW 13.7 (11.5-15.5) % Plt Count 242 (150-450) k/uL Neutrophils % 73 % Lymphocytes % 18 % Monocytes % 6 % Eosinophils % 2 % Basophils % 0 % Neutrophils # 7.4 (1.3-7.7) k/uL Lymphocytes # 1.8 (1.0-4.8) k/uL Monocytes # 0.6 (0-1.0) k/uL Eosinophils # 0.2 (0-0.7) k/uL Basophils # 0.0 (0-0.2) k/uL PT (9.0-12.0) sec INR (<1.2) APTT (22.0-30.0) sec Sodium 138 (137-145) mmol/L Potassium 4.4 (3.5-5.1) mmol/L Chloride 103 (98-107) mmol/L Carbon Dioxide 27 (22-30) mmol/L Anion Gap 8 mmol/L BUN 44 H (7-17) mg/dL Creatinine 0.97 (0.52-1.04) mg/dL Est GFR (CKD-EPI)AfAm 63 (>60 ml/min/1.73 sqM) Est GFR (CKD-EPI)NonAf 54 (>60 ml/min/1.73 sqM) Glucose 88 (74-99) mg/dL Calcium 11.0 H (8.4-10.2) mg/dL Total Bilirubin 0.6 (0.2-1.3) mg/dL AST 21 (14-36) U/L ALT 22 (9-52) U/L Alkaline Phosphatase 117 (38-126) U/L Troponin I (0.000-0.034) ng/mL NT-Pro-B Natriuret Pep 2650 pg/mL Total Protein 7.7 (6.3-8.2) g/dL Albumin 4.2 (3.5-5.0) g/dL 12/18/18 12/18/18 Range/Units 12:46 12:46 WBC (3.8-10.6) k/uL RBC (3.80-5.40) m/uL Hgb (11.4-16.0) gm/dL Hct (34.0-46.0) % MCV (80.0-100.0) fL MCH (25.0-35.0) pg MCHC (31.0-37.0) g/dL RDW (11.5-15.5) % Plt Count (150-450) k/uL Neutrophils % % Lymphocytes % % Monocytes % % Eosinophils % % Basophils % % Neutrophils # (1.3-7.7) k/uL Lymphocytes # (1.0-4.8) k/uL Monocytes # (0-1.0) k/uL Eosinophils # (0-0.7) k/uL Basophils # (0-0.2) k/uL PT 33.2 H (9.0-12.0) sec INR 3.5 H (<1.2) APTT 24.4 (22.0-30.0) sec Sodium (137-145) mmol/L Potassium (3.5-5.1) mmol/L Chloride (98-107) mmol/L Carbon Dioxide (22-30) mmol/L Anion Gap mmol/L BUN (7-17) mg/dL Creatinine (0.52-1.04) mg/dL Est GFR (CKD-EPI)AfAm (>60 ml/min/1.73 sqM) Est GFR (CKD-EPI)NonAf (>60 ml/min/1.73 sqM) Glucose (74-99) mg/dL Calcium (8.4-10.2) mg/dL Total Bilirubin (0.2-1.3) mg/dL AST (14-36) U/L ALT (9-52) U/L Alkaline Phosphatase (38-126) U/L Troponin I 0.020 (0.000-0.034) ng/mL NT-Pro-B Natriuret Pep pg/mL Total Protein (6.3-8.2) g/dL Albumin (3.5-5.0) g/dL - Radiology Data Radiology results: image reviewed (Chest x-ray shows no acute process. There is aortic stent) Disposition Clinical Impression: Congestive heart failure, Asthmatic bronchitis Disposition: ADMITTED IP TO THIS HOSP Is patient prescribed a controlled substance at d/c from ED?: No Referrals: Fabian Kay MD [Primary Care Provider] - 1-2 days Decision Time: 14:31
[2018-12-18 12:57] LABS: Basophils % (A) 0 %; Eosinophils # (A) 0.2 k/uL (0-0.7); Eosinophils % (A) 2 %; HCT 43.2 % (34.0-46.0); HGB 13.7 gm/dL (11.4-16.0); Lymphocytes # (A) 1.8 k/uL (1.0-4.8); Lymphocytes % (A) 18 %; MCH 29.1 pg (25.0-35.0); MCHC 31.6 g/dL (31.0-37.0); Mean Platelet Volume 7.3; Monocytes # (A) 0.6 k/uL (0-1.0); Monocytes % (A) 6 %; Neutrophils # (A) 7.4 k/uL (1.3-7.7); Neutrophils % (A) 73 %; Platelet Count 242 k/uL (150-450); RDW 13.7 % (11.5-15.5); WBC 10.1 k/uL (3.8-10.6)
[2018-12-18 13:10] LABS: Albumin 4.2 g/dL (3.5-5.0); Potassium 4.4 mmol/L (3.5-5.1); Total Bilirubin 0.6 mg/dL (0.2-1.3); Total Protein 7.7 g/dL (6.3-8.2)
[2018-12-18 13:22] LABS: INR 3.5 (<1.2); Partial Thromboplastin Time 24.4 sec (22.0-30.0); Prothrombin Time 33.2 sec (9.0-12.0)
--- NOTE | 2018-12-18 13:56 | XR ---
EXAMINATION TYPE: XR chest 2V DATE OF EXAM: 12/18/2018 HISTORY: difficulty breathing. REFERENCE: Previous study dated 08/17/2018. FINDINGS: There is a descending thoracic aortic aneurysm and there has been stent grafting of this. T his appears unchanged from previous. The heart is normal in size. The lungs appear clear. Pleural spaces are clear. IMPRESSION: 1. STATUS POST STENT GRAFT. 2. NO ACUTE INTRATHORACIC ABNORMALITY.
[2018-12-18] MEDS ORDERED: methylPREDNISolone SOD SUCCI 125 MG/2 ML VIAL IV STA (14:31)
[2018-12-18] MEDS ORDERED: ASPIRIN 325 MG TAB PO STA (14:31)
[2018-12-18] MEDS ORDERED: TEMAZEPAM 15 MG CAP PO PRN (15:00)
[2018-12-18] MEDS ORDERED: ALPRAZolam 0.25 MG TAB PO PRN (15:00)
[2018-12-18] MEDS: FUROSEMIDE 10 MG/ML 4 ML VIAL IV SCH ×2 (15:17→20:55)
[2018-12-18] MEDS ORDERED: ALBUTEROL NEBULIZED 2.5 MG/3 ML INHALATION SCH (16:00)
[2018-12-18 17:30] LABS: Glucose,Whole Blood 108 mg/dL (75-99)
[2018-12-18] MEDS ORDERED: IPRATROPIUM-ALBUTEROL 3 ML NEB INHALATION PRN (17:40)
[2018-12-18] MEDS ORDERED: WARFARIN 2 MG TAB PO SCH (18:00)
[2018-12-18] MEDS: INSULIN ASPART (NovoLOG) 100 UNIT/ML VIAL SQ SCH ×2 (18:05→20:58)
[2018-12-18] MEDS: methylPREDNISolone SOD SUCCI 125 MG/2 ML VIAL IV SCH ×2 (18:06→23:50)
[2018-12-18] MEDS: SYMBICORT 160-4.5 MCG INHALER INHALATION SCH (19:25)
[2018-12-18] MEDS: IPRATROPIUM-ALBUTEROL 3 ML NEB INHALATION SCH (19:25)
[2018-12-18 19:54] LABS: Appearance,Urine Cloudy (Clear); Bacteria,Urine Many /hpf; Bilirubin,Urine Negative (Negative); Blood,Urine Negative (Negative); Color,Urine Light Yellow; Glucose,Urine (UA) Negative (Negative); Hyaline Casts,Urine 3 /lpf (0-2); Ketones,Urine Negative (Negative); Leukocyte Esterase,Urine Negative (Negative); Mucus,Urine Rare /hpf; Nitrite,Urine Negative (Negative); Protein,Urine Negative (Negative); Squamous Epithelial Cell,Urine 10 /hpf (0-4); Urobilinogen,Urine <2.0 mg/dL (<2.0); WBC,Urine 1 /hpf (0-5)
--- NOTE | 2018-12-18 19:57 | HP ---
HISTORY AND PHYSICAL CHIEF COMPLAINTS: Shortness of breath. HISTORY OF PRESENT ILLNESS: This 83-year-old woman with a past history of multiple medical problems including history of CAD, CHF, history of DVT, GERD, hypertension, hyperlipidemia, history of DJD, history of MDS being followed by Dr. Kay in the outpatient setting, not feeling well for the past 1 week. The patient has shortness of breath and cough and sputum. Because of lack of improvement the patient came to [facility] and admitted for further evaluation and treatment. There is no history of any fever, rigors. No history of headache, loss of consciousness or seizures. Bronchitis diagnosed as outpatient. The patient also complains of vague chest discomfort and shortness of breath. PAST MEDICAL HISTORY: History of atrial fibrillation, CAD, CHF, DVT, hypertension, hyperlipidemia, myocardial infarction, appendectomy, cardiac catheterization, aortic stent graft. MEDICATIONS: 1. Norvasc 5 mg p.o. daily. 2. Coumadin 4 mg Wednesday, Wednesday, , Wednesday and 2 mg Wednesday, Wednesday, Wednesday. 3. Klor-Con 10 mg p.o. daily. 4. Topamax 100 mg p.o. daily. 5. Synthroid 100 mcg daily. 6. Imdur 60 mg p.o. daily. 7. Lasix 20 mg p.o. b.i.d. 8. Lomotil 2 tabs daily p.r.n. ALLERGIES: BLACK PEPPER, INFLUENZA, PEANUT, HYOSCYAMINE, IODINATED CONTRAST DYE, DARVON, SULFA, VENOM, BELLADONNA, ALKALOIDS, NORCO, ZOCOR, SMELT. FAMILY HISTORY: History of myocardial infarction. History of coronary artery disease. SOCIAL HISTORY: No history of smoking. No history of alcohol intake. REVIEW OF SYSTEMS: ENT: Diminished vision and hearing. CARDIOVASCULAR: As mentioned earlier. RESPIRATORY: As mentioned. GI: No nausea. : No dysuria. NERVOUS SYSTEM: No numbness or weakness. ALLERGY/IMMUNOLOGY: As mentioned earlier. MUSCULOSKELETAL: As mentioned earlier. HEMATOLOGY: No history of anemia. ENDOCRINE: Hypothyroidism. CONSTITUTIONAL: As mentioned earlier. DERMATOLOGY: Negative. RHEUMATOLOGY: Negative. PSYCHIATRY: As mentioned. PHYSICAL EXAMINATION: Alert and oriented x3. Pulse is 68, blood pressure 139/72, respiration 20, temperature 98.1, pulse ox 98% on 2 L. HEENT: Conjunctivae normal. NECK: No jugular venous distention. CARDIOVASCULAR: S1, S2 muffled. RESPIRATORY: Breath sounds diminished in the bases. Bilateral scattered rhonchi and crackles. Expiratory wheezing also present. Coarse crackles heard bilaterally. ABDOMEN: Soft, nontender. No mass palpable. LEGS: No edema. No swelling. NERVOUS SYSTEM: Higher functions as mentioned. Moves all four limbs. No focal motor deficits. LYMPHATIC: No lymphadenopathy in the neck, axillae, groin. SKIN: No ulcer, rash, bleeding. JOINTS: No active deforming arthropathy. LABS: CBC within normal. INR is 3.5, PTT is 33.2. Otherwise BUN is 44, calcium is 11. ASSESSMENT: 1. Shortness of breath and cough with possible asthmatic bronchitis, acute tracheobronchitis, rule out influenza. 2. No clinical evidence of congestive heart failure at this time. 3. History of atrial fibrillation. 4. Hypercalcemia. 5. History of coronary artery disease. 6. History of congestive heart failure. 7. History of deep vein thrombosis. 8. History of congestive heart failure with chronic systolic dysfunction, ejection fraction 45-50 percent. 9. History of deep vein thrombosis. 10.History of gastroesophageal reflux disease. 11.Coumadin monitoring. 12.Hypertension. 13.Hyperlipidemia. 14.History of myocardial infarction. 15.History of pneumonia. 16.History of hypothyroidism. 17.History of atrial fibrillation. 18.History of myelodysplastic syndrome. 19.History of pulmonary embolism. 20.History of chronic thrombophlebitis. 21.History of abdominal aortic aneurysm in thoracic and abdominal both stented. 22.History of duodenal ulcer. 23.History of colitis. 24.History of diverticulitis. 25.History of cholecystectomy. 26.FULL CODE. RECOMMENDATIONS AND DISCUSSION: This 83-year-old woman who presented with multiple complex medical issues, we will monitor the patient closely. Continue the current management and symptomatic treatment. I recommend intensive bronchodilator treatment as well as empiric antibiotics, steroids. Otherwise I would also recommend Cardiology consultation. We will repeat the labs and continue to monitor. Prognosis guarded because of multiple complex medical issues. Further recommendations to follow. MMODL / IJN: [id number] / MTDD
[2018-12-18 20:52] LABS: Glucose,Whole Blood 201 mg/dL (75-99)
[2018-12-19 02:49] LABS: Basophils % (A) 0 %; Eosinophils % (A) 0 %; HCT 40.2 % (34.0-46.0); HGB 12.9 gm/dL (11.4-16.0); Lymphocytes # (A) 0.6 k/uL (1.0-4.8); Lymphocytes % (A) 8 %; MCH 29.6 pg (25.0-35.0); MCV 92.5 fL (80.0-100.0); Mean Platelet Volume 7.6; Monocytes # (A) 0.1 k/uL (0-1.0); Monocytes % (A) 1 %; Neutrophils # (A) 7.1 k/uL (1.3-7.7); Neutrophils % (A) 91 %; Platelet Count 210 k/uL (150-450); RBC 4.34 m/uL (3.80-5.40); RDW 13.7 % (11.5-15.5); WBC 7.9 k/uL (3.8-10.6)
[2018-12-19 02:57] LABS: INR 3.4 (<1.2); Prothrombin Time 32.7 sec (9.0-12.0)
[2018-12-19 03:06] LABS: Calcium 10.6 mg/dL (8.4-10.2)
[2018-12-19 05:52] LABS: Glucose,Whole Blood 149 mg/dL (75-99)
[2018-12-19] MEDS: methylPREDNISolone SOD SUCCI 125 MG/2 ML VIAL IV SCH ×3 (06:28→17:32)
[2018-12-19] MEDS ORDERED: LEVOTHYROXINE 100 MCG TAB PO SCH (06:30)
[2018-12-19] MEDS: INSULIN ASPART (NovoLOG) 100 UNIT/ML VIAL SQ SCH ×4 (07:06→21:39)
[2018-12-19] MEDS: DIPHENOX-ATROP 2.5-0.025 MG 1 EACH TAB PO PRN ×2 (07:06→12:18)
[2018-12-19] MEDS ORDERED: PANTOPRAZOLE 40 MG TABLET PO SCH (07:30)
[2018-12-19] MEDS: SYMBICORT 160-4.5 MCG INHALER INHALATION SCH ×2 (08:07→19:13)
[2018-12-19] MEDS: IPRATROPIUM-ALBUTEROL 3 ML NEB INHALATION SCH ×3 (08:07→19:12)
[2018-12-19] MEDS ORDERED: POTASSIUM CHLORIDE ER 10 MEQ TAB.ER.PRT PO SCH (09:00)
[2018-12-19] MEDS ORDERED: ISOSORBIDE MONONITRATE ER 60 MG TAB.ER.24H PO SCH (09:00)
[2018-12-19] MEDS ORDERED: amLODIPine 5 MG TAB PO SCH (09:00)
[2018-12-19] MEDS ORDERED: METOPROLOL SUCCINATE (ER) 100 MG TAB.ER.24H PO SCH (09:00)
[2018-12-19] MEDS ORDERED: ASPIRIN 325 MG TAB PO SCH (09:00)
[2018-12-19] MEDS: FUROSEMIDE 10 MG/ML 4 ML VIAL IV SCH ×2 (09:14→21:39)
[2018-12-19 10:42] VITALS: BMI 29.9
[2018-12-19 10:51] LABS: Glucose,Whole Blood 160 mg/dL (75-99)
--- NOTE | 2018-12-19 11:16 | CONS ---
CONSULTATION CHIEF COMPLAINT: Shortness of breath. Daisy is an 83-year-old lady with history of coronary artery disease, congestive heart failure. Prior history of DVT and abdominal aortic aneurysm, status post aortic stent graft, a questionable history of Hunt filter, who presented to hospital complaining of shortness of breath, cough and sputum. She was being followed by Dr. Kay in the outpatient setting and she was not getting better. She is admitted to hospital and she is here. She denies chest pain. Her predominant symptom is shortness of breath. She has significant bilateral rhonchi and clinical presentation seems to be consistent with acute bronchitis. She also has elevated BNP suggestive of acute exacerbation of chronic congestive heart failure. She has history of atrial fibrillation and is currently on Coumadin for the same. PAST MEDICAL HISTORY: Significant for hypertension, atrial fibrillation, coronary artery disease, congestive heart failure, dyslipidemia, aortic stent graft. CURRENT MEDICATIONS: Include Norvasc, Coumadin, , Topamax, Synthroid, Imdur, Lasix, Lomotil. Has multiple allergies, they are charted and I reviewed them. SOCIAL HISTORY: There is no history of smoking or EtOH abuse. FAMILY HISTORY: Significant for coronary artery disease. REVIEW OF SYSTEMS: HEENT is significant for diminished vision and hearing. CARDIOVASCULAR: Negative. RESPIRATORY: Significant shortness of breath. GI: Negative. GENITOURINARY: Negative. PETS SALESPERSON: Negative. ALLERGY/IMMUNOLOGY: Negative. MUSCULOSKELETAL: Significant for arthritis. HEMATOLOGICAL: Negative. ENDOCRINE: Significant for hypothyroidism. CONSTITUTIONAL: Negative. DERM: Negative. ONCOLOGICAL: Negative. PSYCH: Negative. PHYSICAL EXAM: She is comfortable at rest, O2 sat is 98% on 2 L. Afebrile. Heart rate is 70 beats per minute. Blood pressure is 127/76, respirations 18. Chest exam reveals diffuse bilateral rhonchi. Heart exam reveals first and second heart sounds, irregular rhythm and a systolic murmur at the left lower sternal border. Abdomen is soft. Exam of extremities did not reveal any edema. Peripheral pulses are felt. LABS: Show that her hemoglobin is normal at 12.9. INR is 3.4. BUN is 55, creatinine is 1. Troponins are negative. Influenza is negative. BNP is elevated at 2650. EKG shows atrial fibrillation. An echocardiogram done a year ago showed mild LV systolic dysfunction. EKG shows atrial fibrillation with right bundle branch block. ASSESSMENT: 1. Shortness of breath secondary to bronchitis. 2. Abdominal aortic aneurysm, status post aortic stent graft. 3. Acute exacerbation of chronic systolic heart failure. 4. Chronic atrial fibrillation. PLAN: Will treat the patient with IV Lasix, aspirin, Norvasc, Imdur, Toprol-XL, K-Dur, Coumadin. Patient will receive nebulizers, antibiotics for her underlying bronchitis. I am going to hold the Coumadin today as INR is elevated. MMODL / IJN: [id number] /
--- NOTE | 2018-12-19 11:16 | CT ---
EXAMINATION TYPE: CODE STROKE: CT brain wo contr DATE OF EXAM: 12/19/2018 HISTORY: Slurred speech CT DLP: 1039.4 mGycm. Automated Exposure Control for Dose Reduction was Utilized. TECHNIQUE: CT scan of the head is performed without contrast. COMPARISON: None. FINDINGS: There is no acute intracranial hemorrhage or midline shift identified. There is diffuse v entricular and sulcal prominence consistent with diffuse age-related cerebral atrophy. There is low- attenuation in the periventricular white matter consistent with chronic small vessel ischemic change. Air-fluid level right maxillary sinus is present. Remainder paranasal sinuses are clear. Neither l ens is well seen suggesting prior cataract surgery. IMPRESSION: No acute intracranial hemorrhage or midline shift. There is mild to moderate diffuse ag e-related cerebral atrophy and chronic small vessel ischemic change noted. Possible right acute maxi llary sinus disease, correlate clinically.
[2018-12-19 11:36] LABS: INR 3.3 (<1.2); Prothrombin Time 31.9 sec (9.0-12.0)
[2018-12-19 11:37] LABS: Albumin 4.5 g/dL (3.5-5.0); Calcium 11.2 mg/dL (8.4-10.2); Potassium 3.8 mmol/L (3.5-5.1); Total Bilirubin 0.4 mg/dL (0.2-1.3); Total Protein 8.1 g/dL (6.3-8.2)
[2018-12-19 11:43] LABS: Basophils % (A) 0 %; Eosinophils % (A) 0 %; HCT 41.3 % (34.0-46.0); HGB 13.3 gm/dL (11.4-16.0); Lymphocytes # (A) 0.4 k/uL (1.0-4.8); Lymphocytes % (A) 4 %; MCH 29.6 pg (25.0-35.0); MCHC 32.3 g/dL (31.0-37.0); MCV 91.6 fL (80.0-100.0); Mean Platelet Volume 7.8; Monocytes # (A) 0.1 k/uL (0-1.0); Monocytes % (A) 1 %; Neutrophils # (A) 11.6 k/uL (1.3-7.7); Neutrophils % (A) 95 %; Platelet Count 262 k/uL (150-450); RBC 4.51 m/uL (3.80-5.40); RDW 14.1 % (11.5-15.5); WBC 12.3 k/uL (3.8-10.6)
[2018-12-19 11:53] LABS: Glucose,Whole Blood 144 mg/dL (75-99)
[2018-12-19 11:55] LABS: Creatine Kinase <20 U/L (30-135)
[2018-12-19 12:09] LABS: Creatine Kinase MB 0.9 ng/mL (0.0-2.4); Troponin I <0.012 ng/mL (0.000-0.034)
--- NOTE | 2018-12-19 12:31 | P.PN ---
Subjective This is a pleasant 83 years old female with past medical history of coronary artery disease, DVT/PE, status post IVC filter, on coumadine. Atrial f ibrillation on Coumadin. Congestive heart failure, GERD, hyperlipidemia, hypertension, syncope, myelodysplastic syndrome diagnosed in 2016 on oral chemotherapy.Presents because of worsening dyspnea over few days associated with ongoing mild cough and clear phlegm and some chest pressure. Patient was suspected to have bronchitis, asthma versus acute tracheobronchitis and patient was placed on ceftriaxone and Solu-Medrol. Patient however today morning she developed left side shuttle deviations with slurred speech, she had negative CAT scan of the brain, at that time her NIH score was 4 as per staff coming down to 2, patient also improved clinically and she has less deviation and left slurred speech. She denies weakness or abnormal sensation/numbness in her any of the 4 extremities. No urine or bowel incontinence. No headache. And today patient is fully awake and oriented. Since admission patient was receiving aspirin 325 mg daily [employer] also evaluated the patient and suspected to have acute systolic CHF and currently patient on AP Lasix. Her Coumadin is on hold for supratherapeutic INR. Review of systems CONSTITUTIONAL: No fever, no malaise, no fatigue. HEENT: No recent visual problems or hearing problems. Denied any sore throat. GASTROINTESTINAL: No diarrhea, no nausea, no vomiting, no abdominal pain. Normoactive bowel sounds. HEMATOLOGICAL: Denies any bleeding or petechiae. GENITOURINARY: Denies any burning micturition, frequency, or urgency. MUSCULOSKELETAL/RHEUMATOLOGICAL: Denies any joint pain, swelling, or any muscle pain. ENDOCRINE: Denies any polyuria or polydipsia. Medication: Albuterol, Xanax, Norvasc, aspirin, Symbicort, ceftriaxone, Lomotil, Lasix, NovoLog insulin, Imdur, Synthroid, Solu-Medrol, Toprol, Protonix, potassium chloride, temazepam, warfarin. Objective - Vital Signs Vital signs: Vital Signs Temp 97.5 F L 12/19/18 04:00 Pulse 93 12/19/18 11:30 Resp 20 12/19/18 11:30 BP 132/64 12/19/18 11:30 Pulse Ox 95 12/19/18 11:30 Intake & Output 12/18/18 12/19/18 12/19/18 18:59 06:59 18:59 Intake Total 360 Balance 360 Weight 68.492 kg 69.4 kg 69.4 kg Intake: Oral 360 Other: # Voids 1 1 1 # Bowel Movements 0 - Exam GENERAL: The patient is alert and oriented x3, not in any acute distress. Well developed, well nourished. HEENT: Pupils are round and equally reacting to light. EOMI. No scleral icterus. No conjunctival pallor. Normocephalic, atraumatic. No pharyngeal erythema. No thyromegaly. CARDIOVASCULAR: S1 and S2 present. No murmurs, rubs, or gallops. -PULMONARY: Chest is clear to auscultation, bilateral scattered wheezing and crackles. ABDOMEN: Soft, nontender, nondistended, normoactive bowel sounds. No palpable organomegaly. MUSCULOSKELETAL: No joint swelling or deformity. -EXTREMITIES: No cyanosis, clubbing, or pedal edema. NEUROLOGICAL: Cranial nerves: Left facial deviation, mild slurred speech. Rest of cranial nerves are grossly intact, motor 5/5 in 4 extremities. Sensation is intact. Meningeal signs are absent. SKIN: No rashes. - Labs CBC & Chem 7: 12/19/18 11:12 12/19/18 11:12 Labs: Abnormal Lab Results - Last 24 Hours (Table) 12/18/18 12/18/18 12/18/18 Range/Units 12:46 12:46 17:28 WBC (3.8-10.6) k/uL Neutrophils # (1.3-7.7) k/uL Lymphocytes # (1.0-4.8) k/uL PT 33.2 H (9.0-12.0) sec INR 3.5 H (<1.2) Carbon Dioxide (22-30) mmol/L BUN 44 H (7-17) mg/dL Creatinine (0.52-1.04) mg/dL Glucose (74-99) mg/dL POC Glucose (mg/dL) 108 H (75-99) mg/dL Calcium 11.0 H (8.4-10.2) mg/dL Total Creatine Kinase (30-135) U/L Urine Appearance (Clear) Ur Squamous Epith Cells (0-4) /hpf Urine Bacteria (None) /hpf Hyaline Casts (0-2) /lpf Urine Mucus (None) /hpf 12/18/18 12/18/18 12/19/18 Range/Units 19:20 20:50 02:31 WBC (3.8-10.6) k/uL Neutrophils # (1.3-7.7) k/uL Lymphocytes # 0.6 L (1.0-4.8) k/uL PT (9.0-12.0) sec INR (<1.2) Carbon Dioxide (22-30) mmol/L BUN (7-17) mg/dL Creatinine (0.52-1.04) mg/dL Glucose (74-99) mg/dL POC Glucose (mg/dL) 201 H (75-99) mg/dL Calcium (8.4-10.2) mg/dL Total Creatine Kinase (30-135) U/L Urine Appearance Cloudy H (Clear) Ur Squamous Epith Cells 10 H (0-4) /hpf Urine Bacteria Many H (None) /hpf Hyaline Casts 3 H (0-2) /lpf Urine Mucus Rare H (None) /hpf 12/19/18 12/19/18 12/19/18 Range/Units 02:31 02:31 05:50 WBC (3.8-10.6) k/uL Neutrophils # (1.3-7.7) k/uL Lymphocytes # (1.0-4.8) k/uL PT 32.7 H (9.0-12.0) sec INR 3.4 H (<1.2) Carbon Dioxide 21 L (22-30) mmol/L BUN 55 H (7-17) mg/dL Creatinine (0.52-1.04) mg/dL Glucose 170 H (74-99) mg/dL POC Glucose (mg/dL) 149 H (75-99) mg/dL Calcium 10.6 H (8.4-10.2) mg/dL Total Creatine Kinase (30-135) U/L Urine Appearance (Clear) Ur Squamous Epith Cells (0-4) /hpf Urine Bacteria (None) /hpf Hyaline Casts (0-2) /lpf Urine Mucus (None) /hpf 12/19/18 12/19/18 12/19/18 Range/Units 10:49 11:12 11:12 WBC 12.3 H (3.8-10.6) k/uL Neutrophils # 11.6 H (1.3-7.7) k/uL Lymphocytes # 0.4 L (1.0-4.8) k/uL PT (9.0-12.0) sec INR (<1.2) Carbon Dioxide 21 L (22-30) mmol/L BUN 55 H (7-17) mg/dL Creatinine 1.29 H (0.52-1.04) mg/dL Glucose 156 H (74-99) mg/dL POC Glucose (mg/dL) 160 H (75-99) mg/dL Calcium 11.2 H (8.4-10.2) mg/dL Total Creatine Kinase (30-135) U/L Urine Appearance (Clear) Ur Squamous Epith Cells (0-4) /hpf Urine Bacteria (None) /hpf Hyaline Casts (0-2) /lpf Urine Mucus (None) /hpf 12/19/18 12/19/18 12/19/18 Range/Units 11:12 11:12 11:51 WBC (3.8-10.6) k/uL Neutrophils # (1.3-7.7) k/uL Lymphocytes # (1.0-4.8) k/uL PT 31.9 H (9.0-12.0) sec INR 3.3 H (<1.2) Carbon Dioxide (22-30) mmol/L BUN (7-17) mg/dL Creatinine (0.52-1.04) mg/dL Glucose (74-99) mg/dL POC Glucose (mg/dL) 144 H (75-99) mg/dL Calcium (8.4-10.2) mg/dL Total Creatine Kinase <20 L (30-135) U/L Urine Appearance (Clear) Ur Squamous Epith Cells (0-4) /hpf Urine Bacteria (None) /hpf Hyaline Casts (0-2) /lpf Urine Mucus (None) /hpf Assessment and Plan Assessment: Dyspnea, on admission. It could be multifactorial related to bronchitis, asthma versus acute tracheobronchitis. With some elements of heart failure Acute on chronic systolic CHF Acute left facial deviation and slurred speech, improving partially. Possible stroke/TIA. History of DVT and PE, status post IVC filter on coumadine History of atrial fibrillation on Coumadin. Heart rate is controlled History of coronary artery disease History of aortic aneurysm, status post stent grafts Hypertension Hyperlipidemia History of syncope History of myelodysplastic syndrome on oral chemotherapy. History of syncope Plan: This is a pleasant 83 years old female who presents with dyspnea, secondary to COPD/asthma, CHF, and possible stroke/TIA. Continue with IV Lasix. Continue with antibiotics. Continue with steroids treatments. Continue with warfarin therapy with monitoring INR level. We'll do stroke workup including echo, carotid duplex, and MRI of the brain. Labs and medication were reviewed.. Continue same treatment. Continue with symptomatic treatment. Resume home medication. Monitor lytes and vitals. DVT and GI prophylaxis. Further recommendations of the clinical course of the patient DVT prophylaxis: on coumadin GI Prophylaxis: Ppi PT/OT: Pending Prognosis is guarded
--- NOTE | 2018-12-19 13:23 | US ---
EXAMINATION TYPE: US carotid duplex BILAT DATE OF EXAM: 12/19/2018 COMPARISON: NONE CLINICAL HISTORY: tia/stroke. TIA EXAM MEASUREMENTS: RIGHT: Peak Systolic Velocity (PSV) cm/sec ----- Right CCA: 73.2 ----- Right ICA: 97.4 ----- Right ECA: 141.5 ICA/CCA ratio: 1.3 RIGHT: End Diastole cm/sec ----- Right CCA: 11.7 ----- Right ICA: 13.8 ----- Right ECA: 0.0 LEFT: Peak Systolic Velocity (PSV) cm/sec ----- Left CCA: 98.6 ----- Left ICA: 93.4 ----- Left ECA: 96.0 ICA/CCA ratio: 0.9 LEFT: End Diastole cm/sec ----- Left CCA: 12.7 ----- Left ICA: 14.0 ----- Left ECA: 0.0 VERTEBRALS (direction of flow): Right Vertebral: Antegrade Left Vertebral: Antegrade Rhythm: Arrhythmia Grayscale images show moderate to severe diffuse eccentric plaque bilaterally centered at carotid bul bs. Velocity measurements and ratios remain within normal limits bilaterally. Arrhythmia noted and do cumented during real-time scanning. IMPRESSION: Moderate to severe atherosclerotic change bilaterally without hemodynamically significan t stenosis clearly seen in either internal carotid artery . Note is made of underlying arrhythmia du ring real-time scanning, if this is not known finding further investigation with 24 hour Holter monit oring would be advised. Criteria for Assigning % of Stenosis / Diameter reduction (Estimation based on the indirect measurements of the internal carotid artery velocities (ICA PSV). 1. Normal (no stenosis)=ICA PSV < 125 cm/s: ratio < 2.0: ICA EDV<40 cm/s. 2. Less than 50% stenosis=ICA PSV < 125 cm/s: ratio < 2.0: ICA EDV<40 cm/s. 3. 50 to 69% stenosis=ICA PSV of 125 to 230 cm/s: ration 2.0 ? 4.0: ICA EDV 40-100 cm/s. 4. Greater than 70% stenosis to near occlusion= ICA PSV > 230 cm/s: ratio > 4.0: ICA EDV > 100 cm/s. 5. Near occlusion= ICA PSV velocities may be low or undetectable: variable ratio and ICA EDV. 6. Total occlusion=unable to detect flow.
--- NOTE | 2018-12-19 13:37 | XR ---
EXAMINATION TYPE: XR orbit detect foreign body DATE OF EXAM: 12/19/2018 COMPARISON: NONE HISTORY: Rule out metallic foreign body, MRI clearance. TECHNIQUE: Orbits type foreign body with Belle and Yoder as well as true lateral projections. FINDINGS: No metallic intraorbital foreign body is seen to prevent MRI study. Overlying soft tissue i s unremarkable. IMPRESSION: As above.
--- NOTE | 2018-12-19 14:15 | XR ---
EXAMINATION TYPE: XR Hip Bilateral and AP pelvis DATE OF EXAM: 12/19/2018 COMPARISON: NONE HISTORY: MRI clearance. Rule out foreign body. TECHNIQUE: A single AP view of the pelvis is obtained. Two views of the bilateral hips are obtained. FINDINGS: There is no acute fracture/dislocation evident in the pelvis. Mild to moderate superior brain int space loss in both hips is present with mild acetabular spurring. Sacroiliac joints are maintaine d bilaterally. Overlying soft tissue is unremarkable. Metallic IUD right L3 vertebral body level is noted. Two views of bilateral hips show no acute fracture or dislocation. No focal lytic or sclerotic lesio n seen in the proximal femurs bilaterally. Some demineralization is present. Some spurring at greater trochanter level is seen. Central vascular groin calcifications are noted. IMPRESSION: Metallic IUD filter is presumed safe for MRI but model should be correlated prior to scan zach.
[2018-12-19 17:00] LABS: Glucose,Whole Blood 149 mg/dL (75-99)
[2018-12-19] MEDS ORDERED: WARFARIN 2 MG TAB PO SCH (18:00)
[2018-12-19 18:14] VITALS: TEMP 97.7
--- NOTE | 2018-12-19 18:54 | MR ---
EXAMINATION TYPE: MR brain wo con DATE OF EXAM: 12/19/2018 COMPARISON: CT brain earlier today. HISTORY: Slurred speech, code stroke. TECHNIQUE: Multiplanar, multisequence imaging of the brain and brainstem is performed without IV cont rast. FINDINGS: Exam noted suboptimal due to patient motion related to difficulty breathing and laying sti ll flat. Diffusion weighted images demonstrate area of increased signal on diffusion weighted images involving posterior aspect left basal ganglia superiorly extending to jaramillo radiata with diminished signal on ADC mapping that shows T2 hyperintensity less well-seen on T1-weighted images. Area measures roughly 2.0 cm on long axis. Findings consistent with evolving acute infarct. There is no worrisome extra-axial fluid collection. There is ventricular and sulcal prominence consis tent with diffuse cerebral atrophy. There are additional foci of T2 hyperintensity in the deep and pe riventricular white matter. Midline structures demonstrate somewhat empty sella morphology. The craniocervical junction appears within normal limits. Normal vascular flow voids are present. Small air-fluid level right maxillary s inus is redemonstrated otherwise paranasal sinuses are clear. Neither lens is well visualized. IMPRESSION: 1. There is evolving acute infarct involving posterior superior aspect left basal ganglia extending i nto the left jaramillo radiata at level of the posterior left frontal lobe. 2. There is background mild to moderate diffuse cerebral atrophy and chronic small vessel ischemic ch tavia redemonstrated. Possible mild acute right maxillary sinus disease redemonstrated.
[2018-12-19 19:16] VITALS: RESP 16
[2018-12-19 20:37] VITALS: BP 141/73; PULSE 88
[2018-12-19 21:05] LABS: Glucose,Whole Blood 143 mg/dL (75-99)
--- NOTE | 2018-12-20 08:13 | ECHOF ---
Referral Reason:chf MEASUREMENTS -------- HEIGHT: 152.4 cm WEIGHT: 69.4 kg BP: 127/66 RVIDd: 2.3 cm (< 3.3) IVSd: 1.5 cm (0.6 - 1.1) LVIDd: 3.2 cm (3.9 - 5.3) LVPWd: 1.4 cm (0.6 - 1.1) IVSs: 1.7 cm LVIDs: 2.1 cm LVPWs: 1.6 cm LA Diam: 3.3 cm (2.7 - 3.8) LAESV Index (A-L): 24.55 ml/m Ao Diam: 2.9 cm (2.0 - 3.7) AV Cusp: 1.6 cm (1.5 - 2.6) MV EXCURSION: 12.451 mm (> 18.000) MV EF SLOPE: 45 mm/s (70 - 150) EPSS: 0.5 cm AV maxP.44 mmHg AV meanP.37 mmHg RAP: 5.00 mmHg RVSP: 33.51 mmHg FINDINGS -------- Atrial fibrillation. This was a technically adequate study. The left ventricular size is normal. There is moderate concentric left ventricular hypertrophy. O verall left ventricular systolic function is mildly impaired with, an EF between 45 - 50 %. Mid inf eroseptal LV wall motion is hypokinetic. Apical septum LV wall motion is hypokinetic. Atypical septal wall motion The right ventricle is normal in size. Normal LA size by volume 22+/-6 ml/m2. The right atrium is normal in size. There is mild aortic valve sclerosis. There is mild aortic stenosis present. Peak/mean gradient a cross the Aortic Valve is 19.44mmHg / 10.37mmHg. The mitral valve leaflets are mildly thickened. Mild mitral annular calcification present. Mild tricuspid regurgitation present. There is borderline pulmonary hypertension. The right ventr icular systolic pressure, as measured by Doppler, is 33.51mmHg. Trace/mild (physiologic) pulmonic regurgitation. The aortic root size is normal. CONCLUSIONS -------- 1. Atrial fibrillation. 2. This was a technically adequate study. 3. The left ventricular size is normal. 4. There is moderate concentric left ventricular hypertrophy. 5. Atypical septal wall motion 6. The right ventricle is normal in size. 7. Normal LA size by volume 22+/-6 ml/m2. 8. The right atrium is normal in size. 9. There is mild aortic valve sclerosis. 10. There is mild aortic stenosis present. 11. Peak/mean gradient across the Aortic Valve is 19.44mmHg / 10.37mmHg. 12. The mitral valve leaflets are mildly thickened. 13. Mild mitral annular calcification present. 14. Mild tricuspid regurgitation present. 15. There is borderline pulmonary hypertension. 16. The right ventricular systolic pressure, as measured by Doppler, is 33.51mmHg. 17. Trace/mild (physiologic) pulmonic regurgitation. 18. The aortic root size is normal. OIL REFINERY PROCESS TECHNICIAN: Antonietta Alas RDCS
== END 2018-12-19 21:45 | disposition short-term general hospital (02) | DRG 64 ==
LOC: EC 10:53 → 3SCARD 14:39 → OBSVTOIN 12-19 16:17
PROVIDERS: ADMIT Hospitalist; ATTEND Hospitalist
DX: I63.9 Cerebral infarction, unspecified (principal); I50.23 Acute on chronic systolic (congestive) heart failure; R29.810 Facial weakness; R47.81 Slurred speech; R40.2363 Coma scale, best motor response, obeys commands, at hospital admission; R40.2143 Coma scale, eyes open, spontaneous, at hospital admission; R40.2253 Coma scale, best verbal response, oriented, at hospital admission; R29.704 NIHSS score 4; J20.9 Acute bronchitis, unspecified; I48.2 Chronic atrial fibrillation; E83.52 Hypercalcemia; I44.7 Left bundle-branch block, unspecified; E78.5 Hyperlipidemia, unspecified; E03.9 Hypothyroidism, unspecified; D46.9 Myelodysplastic syndrome, unspecified; K21.9 Gastro-esophageal reflux disease without esophagitis; I11.0 Hypertensive heart disease with heart failure; R79.1 Abnormal coagulation profile; H35.30 Unspecified macular degeneration; I25.2 Old myocardial infarction; I25.10 Atherosclerotic heart disease of native coronary artery without angina pectoris; M19.90 Unspecified osteoarthritis, unspecified site; K58.0 Irritable bowel syndrome with diarrhea; K44.9 Diaphragmatic hernia without obstruction or gangrene; J45.909 Unspecified asthma, uncomplicated; Z79.890 Hormone replacement therapy; Z79.01 Long term (current) use of anticoagulants; Z79.899 Other long term (current) drug therapy; Z86.718 Personal history of other venous thrombosis and embolism; Z86.711 Personal history of pulmonary embolism; Z86.72 Personal history of thrombophlebitis; Z87.01 Personal history of pneumonia (recurrent); Z87.11 Personal history of peptic ulcer disease; Z90.49 Acquired absence of other specified parts of digestive tract; Z95.828 Presence of other vascular implants and grafts; Z86.19 Personal history of other infectious and parasitic diseases; Z90.710 Acquired absence of both cervix and uterus; Z86.79 Personal history of other diseases of the circulatory system; Z86.010 Personal history of colon polyps; Z91.041 Radiographic dye allergy status; Z91.030 Bee allergy status; Z91.02 Food additives allergy status; Z88.5 Allergy status to narcotic agent; Z91.010 Allergy to peanuts; Z88.2 Allergy status to sulfonamides; Z88.7 Allergy status to serum and vaccine; Z88.8 Allergy status to other drugs, medicaments and biological substances; Z91.018 Allergy to other foods; Z82.49 Family history of ischemic heart disease and other diseases of the circulatory system; Z82.5 Family history of asthma and other chronic lower respiratory diseases; Z80.9 Family history of malignant neoplasm, unspecified
CPT/HCPCS: 36415; 70030; 70450; 70551; 71046; 73521; 80048; 80053; 81001; 82550; 82553; 83880; 84484; 85025; 85610; 85730; 87040; 87502; 93005; 93306; 93880; 94640; 96374; 96375; 99285

== ENCOUNTER 2018-12-25 17:02 | Inpatient (IN) | payer MEDICARE, BC ==
--- NOTE | 2018-12-25 17:35 | ED ---
General Adult HPI - General Chief complaint: Weakness Stated complaint: abn labs, weakness Time Seen by Provider: 12/25/18 17:08 Source: patient, EMS Mode of arrival: EMS Limitations: no limitations - History of Present Illness Initial comments: Dictation was produced using PerSay dictation software. please excuse any grammatical, word or spelling errors. Chief Complaint: 83-year-old female multiple comorbidities presents with abnormal outpatient labs. History of Present Illness: Patient is 83-year-old female. Patient brought in by EMS for elevated white count. Patient has been having 3-4 days of shortness of breath and generalized fatigue. She had outpatient labs performed at nursing and rehab facility. She is found have a elevated white count level of 27.6. Patient was initially being dispositioned to [facility] however was diverted to our facility for abnormal EKG. Patient states that she was also having low-grade fever. Patient denies any productive cough. Patient was last treated for chemotherapy 2 months ago. Her oncologist is Dr. Coleman. Patient has no pain complains. The ROS documented in this emergency department record has been reviewed and confirmed by me. Those systems with pertinent positive or negative responses have been documented in the HPI. All other systems are other negative and/or noncontributory. PHYSICAL EXAM: General Impression: Alert and oriented x3, not in acute distress, lethargic HEENT: Normocephalic atraumatic, extra-ocular movements intact, pupils equal and reactive to light bilaterally, mucous membranes moist. Cardiovascular: Heart regular rate and rhythm, S1&S2 audible, no murmurs, rubs or gallops Chest: Lungs clear to auscultation bilaterally, no rhonchi, no wheeze, no rales Abdomen: Bowel sounds present, abdomen soft, non-tender, non-distended, no organomegaly Musculoskeletal: Pulses present and equal in all extremities, no peripheral edema Motor: no focal deficits noted Neurological: CN II-XII grossly intact, no focal motor or sensory deficits noted Skin: Intact with no visualized rashes Psych: Normal affect and mood ED course: 83-year-old female presents with chief complaint of elevated white blood cell count fatigue and shortness of breath. Vital signs upon arrival are within acceptable limits. EKG shows left bundle branch block. Bundle branch block pattern does not meet scar Boso criteria. Furthermore, patient not complaining of any chest symptoms or ACS-type symptoms.Left bundle branch is chronic seen on multiple previous EKGs. Laboratory evaluation obtained. Leukocytosis of 27.7. Coag panel is unremarkable. Metabolic panel is unremarkable. No electrolyte derangement. Urinalysis is negative. Chest x-ray is nonacute. At this point patient does not have any localizing symptoms to suggest infection or she does have a leukocytosis of of unexplained origin. Given patient's age and risk factors while patient admitted to inpatient for medical monitoring. We will hold antibiotic administration at this time. Infectious disease and oncology will be consult it. EKG interpretation: Ventricular rate 94, sinus rhythm, MI interval 202, QRS 160, QTc 500. No MI prolongation, no QTC prolongation, no ST or T-wave changes noted. EKG compared to 12/18/2018 showing no changes. Overall, this EKG is unremarkable - Related Data Home Medications Medication Instructions Recorded Confirmed amLODIPine BESYLATE [Amlodipine 5 mg PO DAILY 09/30/15 12/25/18 Besylate] Potassium Chloride [Klor-Con 10] 10 meq PO DAILY 07/20/16 12/25/18 Levothyroxine Sodium [Synthroid] 100 mcg PO DAILY 09/10/16 12/25/18 Metoprolol Succinate [Toprol XL] 100 mg PO DAILY 09/10/16 12/25/18 Warfarin [Coumadin] 4 mg PO TUTHSA 08/17/18 12/25/18 Warfarin [Coumadin] 6 mg PO MOWEFR 08/17/18 12/25/18 Atorvastatin [Lipitor] 20 mg PO HS 12/25/18 12/25/18 Bisacodyl [Dulcolax] 10 mg RECTAL DAILY PRN 12/25/18 12/25/18 Furosemide [Lasix] 20 mg PO BID 12/25/18 12/25/18 Loperamide [Imodium] 2 mg PO TID 12/25/18 12/25/18 Magnesium Hydroxide [Milk of 2,400 mg PO DAILY PRN 12/25/18 12/25/18 Magnesia] Melatonin 1 mg PO HS 12/25/18 12/25/18 Menthol-Zinc Oxide Oint 1 applic TOPICAL BID 12/25/18 12/25/18 [Calmoseptine Oint] Na Phos,M-B/Na Phos,Di-Ba [Fleet 133 ml RECTAL ONCE PRN 12/25/18 12/25/18 Adult] rOPINIRole HCL [Requip] 0.25 mg PO HS 12/25/18 12/25/18 Allergies Allergy/AdvReac Type Severity Reaction Status Date / Time black pepper Allergy Severe Anaphylaxis Verified 12/25/18 17:21 Influenza Virus Vaccines Allergy Severe Unknown Verified 12/25/18 17:21 peanut Allergy Severe Anaphylaxis Verified 12/25/18 17:21 atropine [From ] Allergy Unknown Verified 12/25/18 17:21 chocolate flavor Allergy Itching Verified 12/25/18 17:21 hyoscyamine [From ] Allergy Unknown Verified 12/25/18 17:21 Iodinated Contrast- Oral and Allergy Swelling Verified 12/25/18 17:21 IV Dye [Iodinated Contrast Media - IV Dye] phenobarbital [From ] Allergy Unknown Verified 12/25/18 17:21 propoxyphene [From [place]] Allergy Unknown Verified 12/25/18 17:21 scopolamine [From ] Allergy Unknown Verified 12/25/18 17:21 Sulfa (Sulfonamide Allergy Rash/Hives Verified 12/25/18 17:21 Antibiotics) venom-honey bee Allergy Unknown Verified 12/25/18 17:21 [bee venom (honey bee)] acetaminophen [From [place]] AdvReac Hallucinati Verified 12/25/18 17:21 ons belladonna alkaloids AdvReac Unknown Verified 12/25/18 17:21 hydrocodone [From [place]] AdvReac Hallucinati Verified 12/25/18 17:21 ons simvastatin [From [facility]] AdvReac WEAKNESS Verified 12/25/18 17:21 SMELT Allergy Itching Uncoded 12/25/18 17:21 Review of Systems ROS Statement: Those systems with pertinent positive or pertinent negative responses have been documented in the HPI. ROS Other: All systems not noted in ROS Statement are negative. 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 Pylori, frequent diarrhea, chronic anemia, bronchitis, pneumonias, macular degeneration bilaterally, syncopal episodes. Last Myocardial Infarction Date:: UNKNOWN History of Any Multi-Drug Resistant Organisms: None Reported Past Surgical History: Appendectomy, Cholecystectomy, Heart Catheterization, Hysterectomy Additional Past Surgical History / Comment(s): 09/2015 thoracic aortic aneurysm stent, 07/2017 thoracic aortic aneurysm stent leaking and another stent placed as well as abdominal aortic aneurysm stented, cardiac caths, green field filter, bone marrow aspiration, exploratory lap for adhesions, EGD/colonoscopies with benign polypectomy, hemorrhoidectomy, R leg vein stripping. Past Anesthesia/Blood Transfusion Reactions: No Reported Reaction Past Psychological History: No Psychological Hx Reported Smoking Status: Never smoker Past Alcohol Use History: None Reported Past Drug Use History: None Reported - Past Family History Father Family Medical History: Coronary Artery Disease (CAD), Myocardial Infarction ([place]) Mother Family Medical History: COPD, Coronary Artery Disease (CAD), Deep Vein Thrombosis (DVT) Brother(s) Family Medical History: Coronary Artery Disease (CAD), Myocardial Infarction ([place]) Sister(s) Family Medical History: Cancer General Exam Limitations: no limitations Course Vital Signs 12/25/18 12/25/18 17:21 17:46 Temperature 98.6 F Pulse Rate 91 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 ] Respiratory 18 Rate Blood Pressure 166/58 O2 Sat by Pulse 96 Oximetry Medical Decision Making - Lab Data Result diagrams: 12/25/18 17:25 12/25/18 17:25 Lab Results 12/25/18 12/25/18 12/25/18 Range/Units 17:25 17:25 17:25 WBC 27.7 H (3.8-10.6) k/uL RBC 4.26 (3.80-5.40) m/uL Hgb 12.7 (11.4-16.0) gm/dL Hct 39.2 (34.0-46.0) % MCV 92.1 (80.0-100.0) fL MCH 29.7 (25.0-35.0) pg MCHC 32.3 (31.0-37.0) g/dL RDW 13.9 (11.5-15.5) % Plt Count 180 (150-450) k/uL Neutrophils % 91 % Lymphocytes % 4 % Monocytes % 4 % Eosinophils % 0 % Basophils % 0 % Neutrophils # 25.2 H (1.3-7.7) k/uL Lymphocytes # 1.1 (1.0-4.8) k/uL Monocytes # 1.1 H (0-1.0) k/uL Eosinophils # 0.1 (0-0.7) k/uL Basophils # 0.0 (0-0.2) k/uL PT (9.0-12.0) sec INR (<1.2) Sodium 133 L (137-145) mmol/L Potassium 4.2 (3.5-5.1) mmol/L Chloride 100 (98-107) mmol/L Carbon Dioxide 26 (22-30) mmol/L Anion Gap 7 mmol/L BUN 24 H (7-17) mg/dL Creatinine 0.78 (0.52-1.04) mg/dL Est GFR (CKD-EPI)AfAm 82 (>60 ml/min/1.73 sqM) Est GFR (CKD-EPI)NonAf 71 (>60 ml/min/1.73 sqM) Glucose 93 (74-99) mg/dL POC Glucose (mg/dL) (75-99) mg/dL POC Glu [employer] Research Assistant ID Plasma Lactic Acid Adrian 0.9 (0.7-2.0) mmol/L Calcium 10.3 H (8.4-10.2) mg/dL Magnesium 2.2 (1.6-2.3) mg/dL Total Bilirubin 1.0 (0.2-1.3) mg/dL AST 17 (14-36) U/L ALT 21 (9-52) U/L Alkaline Phosphatase 93 (38-126) U/L Troponin I (0.000-0.034) ng/mL Total Protein 6.4 (6.3-8.2) g/dL Albumin 3.4 L (3.5-5.0) g/dL Urine Color Urine Appearance (Clear) Urine pH (5.0-8.0) Ur Specific [place] (1.001-1.035) Urine Protein (Negative) Urine Glucose (UA) (Negative) Urine Ketones (Negative) Urine Blood (Negative) Urine Nitrite (Negative) Urine Bilirubin (Negative) Urine Urobilinogen (<2.0) mg/dL Ur Leukocyte Esterase (Negative) Urine RBC (0-5) /hpf Urine WBC (0-5) /hpf Urine Mucus (None) /hpf 12/25/18 12/25/18 12/25/18 Range/Units 17:25 17:25 17:49 WBC (3.8-10.6) k/uL RBC (3.80-5.40) m/uL Hgb (11.4-16.0) gm/dL Hct (34.0-46.0) % MCV (80.0-100.0) fL MCH (25.0-35.0) pg MCHC (31.0-37.0) g/dL RDW (11.5-15.5) % Plt Count (150-450) k/uL Neutrophils % % Lymphocytes % % Monocytes % % Eosinophils % % Basophils % % Neutrophils # (1.3-7.7) k/uL Lymphocytes # (1.0-4.8) k/uL Monocytes # (0-1.0) k/uL Eosinophils # (0-0.7) k/uL Basophils # (0-0.2) k/uL PT 19.1 H (9.0-12.0) sec INR 1.9 H (<1.2) Sodium (137-145) mmol/L Potassium (3.5-5.1) mmol/L Chloride (98-107) mmol/L Carbon Dioxide (22-30) mmol/L Anion Gap mmol/L BUN (7-17) mg/dL Creatinine (0.52-1.04) mg/dL Est GFR (CKD-EPI)AfAm (>60 ml/min/1.73 sqM) Est GFR (CKD-EPI)NonAf (>60 ml/min/1.73 sqM) Glucose (74-99) mg/dL POC Glucose (mg/dL) 111 H (75-99) mg/dL POC Glu [employer] Research Assistant ID Hayley Chavez Plasma Lactic Acid Adrian (0.7-2.0) mmol/L Calcium (8.4-10.2) mg/dL Magnesium (1.6-2.3) mg/dL Total Bilirubin (0.2-1.3) mg/dL AST (14-36) U/L ALT (9-52) U/L Alkaline Phosphatase (38-126) U/L Troponin I 0.026 (0.000-0.034) ng/mL Total Protein (6.3-8.2) g/dL Albumin (3.5-5.0) g/dL Urine Color Urine Appearance (Clear) Urine pH (5.0-8.0) Ur Specific [place] (1.001-1.035) Urine Protein (Negative) Urine Glucose (UA) (Negative) Urine Ketones (Negative) Urine Blood (Negative) Urine Nitrite (Negative) Urine Bilirubin (Negative) Urine Urobilinogen (<2.0) mg/dL Ur Leukocyte Esterase (Negative) Urine RBC (0-5) /hpf Urine WBC (0-5) /hpf Urine Mucus (None) /hpf 12/25/18 Range/Units 18:15 WBC (3.8-10.6) k/uL RBC (3.80-5.40) m/uL Hgb (11.4-16.0) gm/dL Hct (34.0-46.0) % MCV (80.0-100.0) fL MCH (25.0-35.0) pg MCHC (31.0-37.0) g/dL RDW (11.5-15.5) % Plt Count (150-450) k/uL Neutrophils % % Lymphocytes % % Monocytes % % Eosinophils % % Basophils % % Neutrophils # (1.3-7.7) k/uL Lymphocytes # (1.0-4.8) k/uL Monocytes # (0-1.0) k/uL Eosinophils # (0-0.7) k/uL Basophils # (0-0.2) k/uL PT (9.0-12.0) sec INR (<1.2) Sodium (137-145) mmol/L Potassium (3.5-5.1) mmol/L Chloride (98-107) mmol/L Carbon Dioxide (22-30) mmol/L Anion Gap mmol/L BUN (7-17) mg/dL Creatinine (0.52-1.04) mg/dL Est GFR (CKD-EPI)AfAm (>60 ml/min/1.73 sqM) Est GFR (CKD-EPI)NonAf (>60 ml/min/1.73 sqM) Glucose (74-99) mg/dL POC Glucose (mg/dL) (75-99) mg/dL POC Glu [employer] Research Assistant ID Plasma Lactic Acid Adrian (0.7-2.0) mmol/L Calcium (8.4-10.2) mg/dL Magnesium (1.6-2.3) mg/dL Total Bilirubin (0.2-1.3) mg/dL AST (14-36) U/L ALT (9-52) U/L Alkaline Phosphatase (38-126) U/L Troponin I (0.000-0.034) ng/mL Total Protein (6.3-8.2) g/dL Albumin (3.5-5.0) g/dL Urine Color Yellow Urine Appearance Clear (Clear) Urine pH 6.0 (5.0-8.0) Ur Specific [place] 1.023 (1.001-1.035) Urine Protein 2+ H (Negative) Urine Glucose (UA) Negative (Negative) Urine Ketones Negative (Negative) Urine Blood Trace H (Negative) Urine Nitrite Negative (Negative) Urine Bilirubin Negative (Negative) Urine Urobilinogen <2.0 (<2.0) mg/dL Ur Leukocyte Esterase Negative (Negative) Urine RBC 1 (0-5) /hpf Urine WBC 1 (0-5) /hpf Urine Mucus Occasional H (None) /hpf Disposition Clinical Impression: Leukocytosis Disposition: ADMITTED IP TO THIS HOSP Condition: Fair Referrals: Fabian Kay MD [Primary Care Provider] - 1-2 days Decision Time: 18:49
[2018-12-25 17:51] LABS: Glucose,Whole Blood 111 mg/dL (75-99)
[2018-12-25 17:55] LABS: Basophils % (A) 0 %; Eosinophils # (A) 0.1 k/uL (0-0.7); Eosinophils % (A) 0 %; HCT 39.2 % (34.0-46.0); HGB 12.7 gm/dL (11.4-16.0); Lymphocytes # (A) 1.1 k/uL (1.0-4.8); Lymphocytes % (A) 4 %; MCH 29.7 pg (25.0-35.0); MCHC 32.3 g/dL (31.0-37.0); MCV 92.1 fL (80.0-100.0); Monocytes # (A) 1.1 k/uL (0-1.0); Monocytes % (A) 4 %; Neutrophils # (A) 25.2 k/uL (1.3-7.7); Neutrophils % (A) 91 %; Platelet Count 180 k/uL (150-450); RBC 4.26 m/uL (3.80-5.40); RDW 13.9 % (11.5-15.5); WBC 27.7 k/uL (3.8-10.6)
[2018-12-25 18:01] LABS: INR 1.9 (<1.2); Prothrombin Time 19.1 sec (9.0-12.0)
--- NOTE | 2018-12-25 18:07 | XR ---
EXAMINATION TYPE: XR chest 2V DATE OF EXAM: 12/25/2018 COMPARISON: 12/18/2018 HISTORY: Short of breath TECHNIQUE: Frontal and lateral views of the chest are obtained. FINDINGS: There is no heart failure nor confluent pneumonic infiltrate. There is some mild pleural r eaction at the lung bases. There is aortic stent. There is aneurysmal change in the descending thorac ic aorta. There are chest leads. Bony thorax is intact. IMPRESSION: There is mild pleural reaction at the lung bases increased slightly compared to old exam . No heart failure. Thoracic aortic aneurysm not significantly different than last exam. Inspirationa l decreased compared to old exam.
[2018-12-25 18:16] LABS: Albumin 3.4 g/dL (3.5-5.0); Calcium 10.3 mg/dL (8.4-10.2); Magnesium 2.2 mg/dL (1.6-2.3); Potassium 4.2 mmol/L (3.5-5.1); Total Protein 6.4 g/dL (6.3-8.2)
[2018-12-25 18:36] LABS: Appearance,Urine Clear (Clear); Bilirubin,Urine Negative (Negative); Blood,Urine Trace (Negative); Color,Urine Yellow; Glucose,Urine (UA) Negative (Negative); Ketones,Urine Negative (Negative); Leukocyte Esterase,Urine Negative (Negative); Mucus,Urine Occasional /hpf; Nitrite,Urine Negative (Negative); Protein,Urine 2+ (Negative); RBC,Urine 1 /hpf (0-5); Specific Gravity,Urine 1.023 (1.001-1.035); Urobilinogen,Urine <2.0 mg/dL (<2.0); WBC,Urine 1 /hpf (0-5)
[2018-12-25] MEDS ORDERED: NALOXONE 0.4 MG/ML 1 ML VIAL IV PRN (18:45)
[2018-12-25] MEDS: SODIUM CHLORIDE 0.9% 1,000 ML IV SCH (19:37)
[2018-12-25] MEDS ORDERED: BISACODYL 10 MG SUPP RECTAL PRN (22:37)
[2018-12-25] MEDS ORDERED: NA PHOS,M-B/NA PHOS,DI-BA 133 ML ENEMA RECTAL PRN (23:00)
[2018-12-25] MEDS ORDERED: NON-FORMULARY DRUG (Magnesium Hydroxide [Milk Of Magnesia] 2,400 MG) PO PRN (23:00)
[2018-12-26] MEDS: LEVOTHYROXINE 100 MCG TAB PO SCH (06:07)
[2018-12-26 07:35] LABS: INR 1.9 (<1.2); Prothrombin Time 18.4 sec (9.0-12.0)
[2018-12-26] MEDS: POTASSIUM CHLORIDE ER 10 MEQ TAB.ER.PRT PO SCH (08:45)
[2018-12-26] MEDS: FUROSEMIDE 20 MG TAB PO SCH ×2 (08:45→20:26)
[2018-12-26] MEDS: METOPROLOL SUCCINATE (ER) 100 MG TAB.ER.24H PO SCH (08:46)
[2018-12-26] MEDS: amLODIPine 5 MG TAB PO SCH (08:46)
[2018-12-26] MEDS: ACETAMINOPHEN TAB 325 MG TAB PO PRN (12:05)
--- NOTE | 2018-12-26 14:59 | P.HPIM ---
History of Present Illness this is a pleasant 83 yo F with pmh of stroke, atrial fibrillation, coronary artery disease, congestive heart failure, hypertension , hyperlipidemia, hypothyroidism, deep venous thrombosis, GERD, osteoarthritis, myelodysplastic syndrome diagnosed in 2016 on oral chemotherapy, pulmonary embolism, aortic aneurysm status post stent. Patient was more worried for inpatient physical rehab after her stroke. She was sent from or [facility] for abnormal labs with leukocytosis at 20 7.7K. Patient however denies pain anywhere, no chest pain. No nausea vomiting. She is eating with no problems, she has some feeling of sticking sensation of fluid in her throat. She has mild cough with no phlegm. No dyspnea. She states denies diarrhea. Her last bowel movement was about 2 days ago No urinary complaints. However on exam she has abdominal tenderness more in the upper and left side of the abdomen. On admission patient is afebrile, vitals stable, labs reviewed showing WBC of 20 7.7K, U Lear this month was 7.9. And is gradually trending up. INR is 1.9. Sodium 133, creatinine 0.7. Urinalysis is Suspicious for Infection. EKG S howing Sinus Rhythm with Premature Atrial Complex and Left Bundle Branch Block at a Rate of 94 BPM, with QTC 500 Review of Systems CONSTITUTIONAL: No fever, no malaise, no fatigue. HEENT: No recent visual problems or hearing problems. Denied any sore throat. CARDIOVASCULAR: No orthopnea, PND, no palpitations, no syncope. PULMONARY: No shortness of breath, no cough, no hemoptysis. GASTROINTESTINAL: No diarrhea, no nausea, no vomiting, no abdominal pain. Normoactive bowel sounds. NEUROLOGICAL: No headaches, no weakness, no numbness. HEMATOLOGICAL: Denies any bleeding or petechiae. GENITOURINARY: Denies any burning micturition, frequency, or urgency. MUSCULOSKELETAL/RHEUMATOLOGICAL: Denies any joint pain, swelling, or any muscle pain. ENDOCRINE: Denies any polyuria or polydipsia. Past Medical History Past Medical History: Atrial Fibrillation, Blood Disorder, Coronary Artery Disease (CAD), Chest Pain / Angina, Heart Failure, CVA/TIA, Deep Vein Thrombosis (DVT), Eye Disorder, GERD/Reflux, Hyperlipidemia, Hypertension, Myocardial Infarction ([place]), Osteoarthritis (OA), Pneumonia, Syncope, Thyroid Disorder, Va scular Disorder Additional Past Medical History / Comment(s): Pt recently diagnosed with afib, MDS diagnosed in 2016 and takes oral chemo, DVTs multiple in R leg and once in L arm, PEs-showering pulmonary embolisms bilateral lungs, chronic thrombophlebitis, coronary blockages, leaky cardiac valves, AAA thoracic and abdominal both stented, duodenal ulcer, hiatal hernia, diverticular dx, colitis, IBS, H. Pylori, frequent diarrhea, chronic anemia, bronchitis, pneumonias, ma cular degeneration bilaterally, syncopal episodes. Last Myocardial Infarction Date:: UNKNOWN History of Any Multi-Drug Resistant Organisms: None Reported Past Surgical History: Appendectomy, Cholecystectomy, Heart Catheterization, Hysterectomy Additional Past Surgical History / Comment(s): 09/2015 thoracic aortic aneurysm stent, 07/2017 thoracic aortic aneurysm stent leaking and another stent placed as well as abdominal aortic aneurysm stented, cardiac caths, green field filter, bone marrow aspiration, exploratory lap for adhesions, EGD/colonoscopies with benign polypectomy, hemorrhoidectomy, R leg vein stripping. Past Anesthesia/Blood Transfusion Reactions: Blood Transfusion Reaction Additional Past Anesthesia/Blood Transfusion Reaction / Comment(s): Heart failure/fluid overload Past Psychological History: No Psychological Hx Reported Additional Psychological History / Comment(s): Pt. was from home with . fell and has several fractures, he has been living at [facility] since September. Patient had a CVA here and went to [facility] (shared a room w/ ) for rehab. Smoking Status: Never smoker Past Alcohol Use History: None Reported Past Drug Use History: None Reported - Past Family History Father Family Medical History: Coronary Artery Disease (CAD), Myocardial Infarction ([place]) Mother Family Medical History: COPD, Coronary Artery Disease (CAD), Deep Vein Thrombosis (DVT) Brother(s) Family Medical History: Coronary Artery Disease (CAD), Myocardial Infarction ([place]) Sister(s) Family Medical History: Cancer Additional Family Medical History / Comment(s): Uterine Medications and Allergies Home Medications Medication Instructions Recorded Confirmed Type amLODIPine BESYLATE [Amlodipine 5 mg PO DAILY 09/30/15 12/25/18 History Besylate] Potassium Chloride [Klor-Con 10] 10 meq PO DAILY 07/20/16 12/25/18 History Levothyroxine Sodium [Synthroid] 100 mcg PO DAILY 09/10/16 12/25/18 History Metoprolol Succinate [Toprol XL] 100 mg PO DAILY 09/10/16 12/25/18 History Warfarin [Coumadin] 4 mg PO TUTHSA 08/17/18 12/25/18 History Warfarin [Coumadin] 6 mg PO MOWEFR 08/17/18 12/25/18 History Atorvastatin [Lipitor] 20 mg PO HS 12/25/18 12/25/18 History Bisacodyl [Dulcolax] 10 mg RECTAL DAILY PRN 12/25/18 12/25/18 History Furosemide [Lasix] 20 mg PO BID 12/25/18 12/25/18 History Loperamide [Imodium] 2 mg PO TID 12/25/18 12/25/18 History Magnesium Hydroxide [Milk of 2,400 mg PO DAILY PRN 12/25/18 12/25/18 History Magnesia] Melatonin 1 mg PO HS 12/25/18 12/25/18 History Menthol-Zinc Oxide Oint 1 applic TOPICAL BID 12/25/18 12/25/18 History [Calmoseptine Oint] Na Phos,M-B/Na Phos,Di-Ba [Fleet 133 ml RECTAL ONCE PRN 12/25/18 12/25/18 History Adult] rOPINIRole HCL [Requip] 0.25 mg PO HS 12/25/18 12/25/18 History Allergies Allergy/AdvReac Type Severity Reaction Status Date / Time black pepper Allergy Severe Anaphylaxis Verified 12/25/18 17:21 Influenza Virus Vaccines Allergy Severe Unknown Verified 12/25/18 17:21 peanut Allergy Severe Anaphylaxis Verified 12/25/18 17:21 atropine [From ] Allergy Unknown Verified 12/25/18 17:21 chocolate flavor Allergy Itching Verified 12/25/18 17:21 hyoscyamine [From ] Allergy Unknown Verified 12/25/18 17:21 Iodinated Contrast- Oral and Allergy Swelling Verified 12/25/18 17:21 IV Dye [Iodinated Contrast Media - IV Dye] phenobarbital [From ] Allergy Unknown Verified 12/25/18 17:21 propoxyphene [From Darvon] Allergy Unknown Verified 12/25/18 17:21 scopolamine [From ] Allergy Unknown Verified 12/25/18 17:21 Sulfa (Sulfonamide Allergy Rash/Hives Verified 12/25/18 17:21 Antibiotics) venom-honey bee Allergy Unknown Verified 12/25/18 17:21 [bee venom (honey bee)] acetaminophen [From [place]] AdvReac Hallucinati Verified 12/25/18 17:21 ons belladonna alkaloids AdvReac Unknown Verified 12/25/18 17:21 hydrocodone [From [place]] AdvReac Hallucinati Verified 12/25/18 17:21 ons simvastatin [From Zocor] AdvReac WEAKNESS Verified 12/25/18 17:21 SMELT Allergy Itching Uncoded 12/25/18 17:21 Physical Exam Vitals: Vital Signs Temp Pulse Pulse Pulse Resp BP BP 12/26/18 07:00 98.5 F 72 18 137/64 12/26/18 02:15 98.3 F 82 16 152/71 12/25/18 21:52 98.4 F 81 18 148/74 12/25/18 21:30 79 18 136/63 12/25/18 19:19 80 16 142/70 12/25/18 17:46 94 12/25/18 17:21 98.6 F 91 18 166/58 Pulse Ox 12/26/18 07:00 97 12/26/18 02:15 98 12/25/18 21:52 97 12/25/18 21:30 98 12/25/18 19:19 100 12/25/18 17:46 12/25/18 17:21 96 Intake and Output 12/25/18 12/26/18 12/26/18 22:59 06:59 14:59 Intake Total 400 Output Total 50 Balance -50 400 Intake: Oral 400 Output: Urine 50 Straight 50 Other: Voiding Method Bedside Commode # Voids 0 3 Weight 70.76 kg 67.4 kg GENERAL: The patient is alert and oriented x3, not in any acute distress. Well developed, well nourished. HEENT: Pupils are round and equally reacting to light. EOMI. No scleral icterus. No conjunctival pallor. Normocephalic, atraumatic. No pharyngeal erythema. No thyromegaly. CARDIOVASCULAR: S1 and S2 present. No murmurs, rubs, or gallops. PULMONARY: Chest is clear to auscultation, no wheezing or crackles. -ABDOMEN: Soft, generalized abdominal tenderness, more on the left and upper abdomen, no rebound tenderness or guarding, nondistended, normoactive bowel sounds. No palpable organomegaly. MUSCULOSKELETAL: No joint swelling or deformity. EXTREMITIES: No cyanosis, clubbing, or pedal edema. NEUROLOGICAL: Gross neurological examination did not reveal any focal deficits. SKIN: No rashes. Results CBC & Chem 7: 12/25/18 17:25 12/25/18 17:25 Labs: Abnormal Lab Results - Last 24 Hours (Table) 12/25/18 12/25/18 12/25/18 Range/Units 17:25 17:25 17:25 WBC 27.7 H (3.8-10.6) k/uL Neutrophils # 25.2 H (1.3-7.7) k/uL Monocytes # 1.1 H (0-1.0) k/uL PT 19.1 H (9.0-12.0) sec INR 1.9 H (<1.2) Sodium 133 L (137-145) mmol/L BUN 24 H (7-17) mg/dL POC Glucose (mg/dL) (75-99) mg/dL Calcium 10.3 H (8.4-10.2) mg/dL Albumin 3.4 L (3.5-5.0) g/dL Urine Protein (Negative) Urine Blood (Negative) Urine Mucus (None) /hpf 12/25/18 12/25/18 12/26/18 Range/Units 17:49 18:15 07:12 WBC (3.8-10.6) k/uL Neutrophils # (1.3-7.7) k/uL Monocytes # (0-1.0) k/uL PT 18.4 H (9.0-12.0) sec INR 1.9 H (<1.2) Sodium (137-145) mmol/L BUN (7-17) mg/dL POC Glucose (mg/dL) 111 H (75-99) mg/dL Calcium (8.4-10.2) mg/dL Albumin (3.5-5.0) g/dL Urine Protein 2+ H (Negative) Urine Blood Trace H (Negative) Urine Mucus Occasional H (None) /hpf Microbiology - Last 24 Hours (Table) 12/25/18 18:15 Urine Culture - Preliminary Urine,Catheterized Thrombosis Risk Factor Assmnt - Choose All That Apply Any of the Below Risk Factors Present?: Yes Each Factor Represents 1 point: Heart failure (<1month), Medical pt on bed rest, Obesity (BMI >25), Swollen legs (current) Each Risk Factor Represents 3 Points: Age 75 years or older, Family history of DVT/PE, History of DVT/PE Other congenital or acquired thrombophilia - If yes, enter type in comment: Yes Each Risk Factor Represents 5 Points: Stroke (< 1 month) Thrombosis Risk Factor Assessment Total Risk Factor Score: 18 Thrombosis Risk Factor Assessment Level: High Risk Assessment and Plan Assessment: Leukocytosis of unknown source Generalized abdominal pain and tenderness History of stroke with left facial division History of atrial fibrillation, chronic. On anticoagulation History of DVT, PE on Coumadin History of congestive heart failure Essential hypertension Hyperlipidemia Hypothyroidism History of posterior arthritis History of polyps plastic syndrome, diagnosed 2016 History of thoracic aortic aneurysm, status post stenting Plan: This is a pleasant 83 years old female who presents with leukocytosis and abdominal tenderness. We will start on Cipro and Flagyl. Check blood culture. We'll do CAT scan of the abdomen without contrast. Labs and medication were reviewed.. Continue same treatment. Continue with symptomatic treatment. Resume home medication. Monitor lytes and vitals. DVT and GI prophylaxis. Further recommendations of the clinical course of the patient DVT prophylaxis: On Coumadin GI Prophylaxis: Ppi Prognosis is guarded
[2018-12-26] MEDS: BARIUM SULFATE 450 ML ORAL.SUSP BOTTLE PO PRN ×2 (15:28→18:19)
[2018-12-26 15:45] LABS: Basophils % (A) 0 %; Eosinophils # (A) 0.1 k/uL (0-0.7); Eosinophils % (A) 1 %; HCT 37.2 % (34.0-46.0); HGB 11.9 gm/dL (11.4-16.0); Lymphocytes % (A) 5 %; MCH 29.8 pg (25.0-35.0); MCV 93.2 fL (80.0-100.0); Mean Platelet Volume 8.4; Monocytes # (A) 0.9 k/uL (0-1.0); Monocytes % (A) 5 %; Neutrophils # (A) 16.4 k/uL (1.3-7.7); Neutrophils % (A) 88 %; Platelet Count 179 k/uL (150-450); RBC 3.99 m/uL (3.80-5.40); WBC 18.6 k/uL (3.8-10.6)
[2018-12-26] MEDS ORDERED: LEVOFLOXACIN 500MG-D5W PMX 500 MG in DEXTROSE/WATER 1 100ML.BAG IVPB SCH (16:00)
[2018-12-26] MEDS ORDERED: metroNIDAZOLE-NS PMX 500 MG in SALINE 1 100ML.BAG IVPB SCH (16:00)
[2018-12-26] MEDS: WARFARIN 2 MG TAB PO SCH ×2 (17:24→20:25)
--- NOTE | 2018-12-26 20:00 | CT ---
EXAMINATION TYPE: CT abdomen pelvis wo con DATE OF EXAM: 12/26/2018 COMPARISON: 08/17/2018 HISTORY: Diarrhea CT DLP: 458.7 mGycm Automated exposure control for dose reduction was used. TECHNIQUE: Helical acquisition of images was performed from the lung bases through the pelvis. FINDINGS: There is lower thoracic aortic aneurysm. Extent of the aneurysm is not evaluated on this exam. Heart is enlarged. There is no pleural effusion. There is no pericardial effusion. Lung bases are clear of consolidation. Liver and spleen appear normal. There is no pancreatic mass. Bile ducts are not dilated. Gallbladder is not seen. There is 2.4 cm low-density right adrenal mass. There is 4 cm cortical cyst posterior left kidney. Th ere is no hydronephrosis. There is no retroperitoneal adenopathy. Abdominal aorta is atheromatous. Th ere is inferior vena cava filter noted. There are numerous diverticula in the sigmoid colon. Bladder is almost empty. There is no inguinal he rnia. There is no free fluid in the pelvis. There is mild fat stranding and wall thickening of the di stal sigmoid colon. Small bowel appears normal. Appendix is not seen. There is no sign of appendiciti s. There is no free air. There is no ascites. Bony structures appear intact. IMPRESSION: THERE IS LOWER THORACIC AORTIC ANEURYSM WITH STENT. THIS IS NOT CHANGED COMPARED TO OLD CT SCAN. THOR ACIC ANEURYSM IS NOT ENTIRELY INCLUDED ON THE EXAM. LOW-DENSITY RIGHT ADRENAL MASS CONSISTENT WITH BENIGN DISEASE. UNCHANGED. INFLAMMATORY CHANGES AROUND THE DISTAL SIGMOID COLON CONSISTENT WITH DIVERTICULITIS THAT IS A CHANGE COMPARED TO OLD EXAM. NO ABSCESS.
[2018-12-26] MEDS: ATORVASTATIN 20 MG TAB PO SCH (20:25)
[2018-12-26] MEDS: SODIUM CHLORIDE 0.9% 1,000 ML IV SCH (20:26)
[2018-12-26] MEDS: MELATONIN 1 MG TAB PO SCH (20:32)
--- NOTE | 2018-12-26 21:54 | P.CONS ---
History of Present Illness - Reason for Consult Consult date: 12/26/18 Anemia Requesting physician: Petros E Sheet - Chief Complaint SOB - History of Present Illness Daisy is being refered for evaluation of unexplained anemia noted mostly in p asr 6 months. The patient CBC results over last few years were reviewed and been mostly WNL, until progressive mild Macrocytic anemia (MCV 100-105) noted recently. Initial anemia studies revealed normal iron level, thyroid functions, B12 and Folate levels. The patient denied melene, hematochezia, hematemesis or gross Hematuria. Daisy is known to have progressive AAA and seen by surgery at [facility], repair is scheduled soon, the patient was told by her Cardiovascular surgery team that HGB needs to be around 12. Overall, C/O progressive fatigue and loss of stamina X 6-12 months, no anorexia or significant weight loss. She denied taking new medications, nor taking immunesupressive therapy. The patient is on life-time anticoagulation with Coumadin due to recurrent DVT/PEs, had prior IVC filter. She was evaluated by Dr Perez in our office in 2005, no hypercoagulable state was identified. 11/28/15 : Has Aneurysm repair by Dr Asif > recovered well.on Coumadin. Thoracic aneurysm surgery (Stent) done at [facility], more procedures maybe needed. She has followed with Dr. Coleman since 2012 for chronic anemia and cytopenias, likely realted to underlying low grade MDS. Therefore hematology was consulted during hospitalization. Her Labs appear in safe range currently. WBC increased, likely reactive, but trending down. Primarily neutrophils Review of Systems A 14 point review of systems assessed and completed and all negative except HPI Past Medical History Past Medical History: Atrial Fibrillation, Blood Disorder, Coronary Artery Disease (CAD), Chest Pain / Angina, Heart Failure, CVA/TIA, Deep Vein Thrombosis (DVT), Eye Disorder, GERD/Reflux, Hyperlipidemia, Hypertension, Myocardial Infarction ([place]), Osteoarthritis (OA), Pneumonia, Syncope, Thyroid Disorder, Vascular Disorder Additional Past Medical History / Comment(s): Pt recently diagnosed with afib, MDS diagnosed in 2016 and takes oral chemo, DVTs multiple in R leg and once in L arm, PEs-showering pulmonary embolisms bilateral lungs, chronic thrombophlebitis, coronary blockages, leaky cardiac valves, AAA thoracic and abdominal both stented, duodenal ulcer, hiatal hernia, diverticular dx, colitis, IBS, H. Pylori, frequent diarrhea, chronic anemia, bronchitis, pneumonias, macular degeneration bilaterally, syncopal episodes. Last Myocardial Infarction Date:: UNKNOWN History of Any Multi-Drug Resistant Organisms: None Reported Past Surgical History: Appendectomy, Cholecystectomy, Heart Catheterization, Hysterectomy Additional Past Surgical History / Comment(s): 09/2015 thoracic aortic aneurysm stent, 07/2017 thoracic aortic aneurysm stent leaking and another stent placed as well as abdominal aortic aneurysm stented, cardiac caths, green field filter, bone marrow aspiration, exploratory lap for adhesions, EGD/colonoscopies with b enign polypectomy, hemorrhoidectomy, R leg vein stripping. Past Anesthesia/Blood Transfusion Reactions: Blood Transfusion Reaction Additional Past Anesthesia/Blood Transfusion Reaction / Comm: Heart failure/fluid overload Past Psychological History: No Psychological Hx Reported Additional Psychological History / Comment(s): Pt. was from home with . fell and has several fractures, he has been living at [facility] since September. Patient had a CVA here and went to [facility] (shared a room w/ ) for rehab. Smoking Status: Never smoker Past Alcohol Use History: None Reported Past Drug Use History: None Reported - Past Family History Father Family Medical History: Coronary Artery Disease (CAD), Myocardial Infarction ([place]) Mother Family Medical History: COPD, Coronary Artery Disease (CAD), Deep Vein Thrombosis (DVT) Brother(s) Family Medical History: Coronary Artery Disease (CAD), Myocardial Infarction ([place]) Sister(s) Family Medical History: Cancer Additional Family Medical History / Comment(s): Uterine Medications and Allergies Home Medications Medication Instructions Recorded Confirmed Type amLODIPine BESYLATE [Amlodipine 5 mg PO DAILY 09/30/15 12/25/18 History Besylate] Potassium Chloride [Klor-Con 10] 10 meq PO DAILY 07/20/16 12/25/18 History Levothyroxine Sodium [Synthroid] 100 mcg PO DAILY 09/10/16 12/25/18 History Metoprolol Succinate [Toprol XL] 100 mg PO DAILY 09/10/16 12/25/18 History Warfarin [Coumadin] 4 mg PO TUTHSA 08/17/18 12/25/18 History Warfarin [Coumadin] 6 mg PO MOWEFR 08/17/18 12/25/18 History Atorvastatin [Lipitor] 20 mg PO HS 12/25/18 12/25/18 History Bisacodyl [Dulcolax] 10 mg RECTAL DAILY PRN 12/25/18 12/25/18 History Furosemide [Lasix] 20 mg PO BID 12/25/18 12/25/18 History Loperamide [Imodium] 2 mg PO TID 12/25/18 12/25/18 History Magnesium Hydroxide [Milk of 2,400 mg PO DAILY PRN 12/25/18 12/25/18 History Magnesia] Melatonin 1 mg PO HS 12/25/18 12/25/18 History Menthol-Zinc Oxide Oint 1 applic TOPICAL BID 12/25/18 12/25/18 History [Calmoseptine Oint] Na Phos,M-B/Na Phos,Di-Ba [Fleet 133 ml RECTAL ONCE PRN 12/25/18 12/25/18 History Adult] rOPINIRole HCL [Requip] 0.25 mg PO HS 12/25/18 12/25/18 History Allergies Allergy/AdvReac Type Severity Reaction Status Date / Time black pepper Allergy Severe Anaphylaxis Verified 12/25/18 17:21 Influenza Virus Vaccines Allergy Severe Unknown Verified 12/25/18 17:21 peanut Allergy Severe Anaphylaxis Verified 12/25/18 17:21 atropine [From ] Allergy Unknown Verified 12/25/18 17:21 chocolate flavor Allergy Itching Verified 12/25/18 17:21 hyoscyamine [From ] Allergy Unknown Verified 12/25/18 17:21 Iodinated Contrast- Oral and Allergy Swelling Verified 12/25/18 17:21 IV Dye [Iodinated Contrast Media - IV Dye] phenobarbital [From ] Allergy Unknown Verified 12/25/18 17:21 propoxyphene [From [place]] Allergy Unknown Verified 12/25/18 17:21 scopolamine [From ] Allergy Unknown Verified 12/25/18 17:21 Sulfa (Sulfonamide Allergy Rash/Hives Verified 12/25/18 17:21 Antibiotics) venom-honey bee Allergy Unknown Verified 12/25/18 17:21 [bee venom (honey bee)] acetaminophen [From [place]] AdvReac Hallucinati Verified 12/25/18 17:21 ons belladonna alkaloids AdvReac Unknown Verified 12/25/18 17:21 hydrocodone [From [place]] AdvReac Hallucinati Verified 12/25/18 17:21 ons simvastatin [From Zocor] AdvReac WEAKNESS Verified 12/25/18 17:21 SMELT Allergy Itching Uncoded 12/25/18 17:21 Physical Exam Vitals: Vital Signs Temp Pulse Pulse Pulse Resp BP BP 12/26/18 07:00 98.5 F 72 18 137/64 12/26/18 02:15 98.3 F 82 16 152/71 12/25/18 21:52 98.4 F 81 18 148/74 12/25/18 21:30 79 18 136/63 12/25/18 19:19 80 16 142/70 12/25/18 17:46 94 12/25/18 17:21 98.6 F 91 18 166/58 Pulse Ox 12/26/18 07:00 97 12/26/18 02:15 98 12/25/18 21:52 97 12/25/18 21:30 98 12/25/18 19:19 100 12/25/18 17:46 12/25/18 17:21 96 Intake and Output 12/26/18 12/26/18 12/26/18 06:59 14:59 22:59 Intake Total 640 Balance 640 Intake: Oral 640 Other: # Voids 3 Weight 67.4 kg Gen: NAD, Awakes Head: NCNT Neck: Supple, no palpable adenopathy Lungs: MIld increased effort, bilateral bases diminished HEart Reg, Irrg ABdomen: SOft, ND, NTExt: eccymosis in multiple areas on extremities, no apparent bleeding, Neuro: NO sensory or motor deficits Results CBC & Chem 7: 12/26/18 15:40 12/26/18 15:40 Labs: Abnormal Lab Results - Last 24 Hours (Table) 12/25/18 12/25/18 12/25/18 Range/Units 17:25 17:25 17:25 WBC 27.7 H (3.8-10.6) k/uL Neutrophils # 25.2 H (1.3-7.7) k/uL Monocytes # 1.1 H (0-1.0) k/uL PT 19.1 H (9.0-12.0) sec INR 1.9 H (<1.2) Sodium 133 L (137-145) mmol/L BUN 24 H (7-17) mg/dL POC Glucose (mg/dL) (75-99) mg/dL Calcium 10.3 H (8.4-10.2) mg/dL Albumin 3.4 L (3.5-5.0) g/dL Urine Protein (Negative) Urine Blood (Negative) Urine Mucus (None) /hpf 12/25/18 12/25/18 12/26/18 Range/Units 17:49 18:15 07:12 WBC (3.8-10.6) k/uL Neutrophils # (1.3-7.7) k/uL Monocytes # (0-1.0) k/uL PT 18.4 H (9.0-12.0) sec INR 1.9 H (<1.2) Sodium (137-145) mmol/L BUN (7-17) mg/dL POC Glucose (mg/dL) 111 H (75-99) mg/dL Calcium (8.4-10.2) mg/dL Albumin (3.5-5.0) g/dL Urine Protein 2+ H (Negative) Urine Blood Trace H (Negative) Urine Mucus Occasional H (None) /hpf Microbiology - Last 24 Hours (Table) 12/25/18 18:15 Urine Culture - Preliminary Urine,Catheterized Assessment and Plan (1) Leukocytosis Current Visit: Yes Status: Acute Code(s): D72.829 - ELEVATED WHITE BLOOD CELL COUNT, UNSPECIFIED SNOMED Code(s): 890405797 (2) Acute pulmonary edema Current Visit: No Status: Acute Code(s): J81.0 - ACUTE PULMONARY EDEMA SNOMED Code(s): 71551781 (3) Congestive heart failure Current Visit: No Status: Acute Code(s): I50.9 - HEART FAILURE, UNSPECIFIED SNOMED Code(s): 20936913 (4) Deep vein thrombosis (DVT) of left lower extremity Current Visit: No Status: Acute Code(s): I82.402 - ACUTE EMBOLISM AND THOMBOS UNSP DEEP VEINS OF L LOW EXTREM SNOMED Code(s): 715851835 (5) Elevated troponin Current Visit: No Status: Acute Code(s): R74.8 - ABNORMAL LEVELS OF OTHER SERUM ENZYMES SNOMED Code(s): 534163780 Plan: Assessment and Recommendations: Chronic Anemia: Liekly related to low Grade MDS, with hx component of Iron deficiency - No intervention as her hemoglobin is within safe range at this time Leukocytosis: Improving: - Reactive, primarily neutrophils Thank you for allowing us to participate in the care of this patient, we will assist in follwoing CBC, no intervention needed at this time Physician Attest: I have completed the full history and physical of this patient and agree with above dictation, dictated as a scribe.
[2018-12-26] MEDS: LOPERAMIDE 2 MG CAP PO PRN (22:59)
--- NOTE | 2018-12-26 23:26 | P.CONS ---
History of Present Illness - Reason for Consult Consult date: 12/26/18 - Chief Complaint progressive fatigue - History of Present Illness 83-year-old female with a significant recent past medical history associated with progressive decline of her status. She was recently hospitalized when she had the sudden onset of right-sided weakness. MRI confirmed a new left basal ganglion infarct and she was transferred to an outside facility. The patient also has a somewhat recent history of repair of aortic aneurysm with a stent. The patient is being cared for in the rehab facility and was started to feel more poorly. Some laboratories were performed and there was evidence of leukocytosis and increasing malaise. Because of this she was referred to Hospital, apparently when EMS arrived there is also some concerns for some cardiac dysfunction and was transported to our facility. With concerns underlying sepsis the infectious diseases consultation was requested. The patient herself is pleasant but somewhat of a poor historian but when given time her speech is deliberate and understandable. Review of Systems HEENT:Denies headache or acute visual change. Denies sinus or mouth discomforts. Denies neck stiffness or pain. Denies significant oral cavity pain. relates to recent swallow studies that failed to reveal evidence of aspiration but does have some weakness requiring maneuvers. Lungs: Denies significant shortness of breath, cough, sputum production, or hemoptysis. Cardiovascular: Denies significant shortness of breath, chest pain, chest wall pain, orthopnea, dyspnea on exertion, syncope Gastrointestinal:patient has some vague abdominal pain but no nausea or emesis stools are often loose which she attributes to some of her medications, often takes Imodium Musculoskeletal: Chronic musculoskeletal pain withou Skin: Denies new rash or lesions. No new ulcers or wounds are related.. Neuro: recent stroke with residual right sided weakness Psychiatric:Denies anxiety or depression. Endocrine: Relates that her severe fatigue is improving with therapy. Past Medical History Past Medical History: Atrial Fibrillation, Blood Disorder, Coronary Artery Dis ease (CAD), Chest Pain / Angina, Heart Failure, CVA/TIA, Deep Vein Thrombosis (DVT), Eye Disorder, GERD/Reflux, Hyperlipidemia, Hypertension, Myocardial Infarction ([place]), Osteoarthritis (OA), Pneumonia, Syncope, Thyroid Disorder, Vascular Disorder Additional Past Medical History / Comment(s): Pt recently diagnosed with afib,. 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 DVTs multiple in R leg and once in L arm, PEs-showering pulmonary embolisms bilateral lungs, chronic thrombophlebitis, coronary blockages, leaky cardiac valves, AAA thoracic and abdominal both stented, duodenal ulcer, hiatal hernia, diverticular dx, colitis, IBS, H. Pylori, frequent diarrhea, chronic anemia, bronchitis, pneumonias, macular degeneration bilaterally, syncopal episodes. Last Myocardial Infarction Date:: UNKNOWN History of Any Multi-Drug Resistant Organisms: None Reported Past Surgical History: Appendectomy, Cholecystectomy, Heart Catheterization, Hysterectomy Additional Past Surgical History / Comment(s): 09/2015 thoracic aortic aneurysm stent, 07/2017 thoracic aortic aneurysm stent leaking and another stent placed as well as abdominal aortic aneurysm stented, cardiac caths, green field filter, bone marrow aspiration, exploratory lap for adhesions, EGD/colonoscopies with benign polypectomy, hemorrhoidectomy, R leg vein stripping. Past Anesthesia/Blood Transfusion Reactions: Blood Transfusion Reaction Additional Past Anesthesia/Blood Transfusion Reaction / Comm: Heart failure/fluid overload Past Psychological History: No Psychological Hx Reported Additional Psychological History / Comment(s): Pt. was from home with . fell and has several fractures, he has been living at [facility] since September. Patient had a CVA here and went to [facility] (shared a room w/ ) for rehab. retired. No animals in the home. Adult children Smoking Status: Never smoker Past Alcohol Use History: None Reported Past Drug Use History: None Reported - Past Family History Father Family Medical History: Coronary Artery Disease (CAD), Myocardial Infarction ([place]) Mother Family Medical History: COPD, Coronary Artery Disease (CAD), Deep Vein Thrombosis (DVT) Brother(s) Family Medical History: Coronary Artery Disease (CAD), Myocardial Infarction ([place]) Sister(s) Family Medical History: Cancer Additional Family Medical History / Comment(s): Uterine Medications and Allergies Home Medications and Allergies Comment(s): Current Medications Acetaminophen (Tylenol Tab) 650 mg PO Q6HR PRN PRN Reason: Fever and/ or Pain Last Admin: 12/26/18 12:05 Dose: 650 mg Documented by: Amlodipine Besylate (Norvasc) 5 mg PO DAILY [facility] Last Admin: 12/26/18 08:46 Dose: 5 mg Documented by: Atorvastatin Calcium (Lipitor) 20 mg PO HS [facility] Last Admin: 12/26/18 20:25 Dose: 20 mg Documented by: Barium Sulfate (Readi-Cat 2) 450 ml PO Q3HR PRN PRN Reason: CT Scan Stop: 12/27/18 14:58 Last Admin: 12/26/18 18:19 Dose: 450 ml Documented by: Bisacodyl (Dulcolax) 10 mg RECTAL DAILY PRN PRN Reason: Constipation Furosemide (Lasix) 20 mg PO BID [facility] Last Admin: 12/26/18 20:26 Dose: 20 mg Documented by: Sodium Chloride (Saline 0.9%) 1,000 mls @ 20 mls/hr IV .Q24H [facility] Last Admin: 12/26/18 20:26 Dose: 20 mls/hr Documented by: Levofloxacin 500 mg/ IV (Solution) 100 mls @ 100 mls/hr IVPB Q24H [facility] Last Admin: 12/26/18 16:27 Dose: 100 mls/hr Documented by: Metronidazole 500 mg/ IV (Solution) 100 mls @ 100 mls/hr IVPB Q8HR [facility] Last Admin: 12/26/18 17:24 Dose: 100 mls/hr Documented by: Levothyroxine Sodium (Synthroid) 100 mcg PO DAILY@0630 [facility] Last Admin: 12/26/18 06:07 Dose: 100 mcg Documented by: Loperamide HCl (Imodium) 2 mg PO QID PRN PRN Reason: Diarrhea Last Admin: 12/26/18 22:59 Dose: 2 mg Documented by: Melatonin (Melatonin) 1 mg PO [facility] Last Admin: 12/26/18 20:32 Dose: 1 mg Documented by: Metoprolol Succinate (Toprol Xl) 100 mg PO DAILY [facility] Last Admin: 12/26/18 08:46 Dose: 100 mg Documented by: Naloxone HCl (Narcan) 0.2 mg IV Q2M PRN PRN Reason: Opioid Reversal Non-Formulary Medication (Magnesium Hydroxide [Milk Of Magnesia]) 2,400 mg PO DAILY PRN PRN Reason: CONSTIPATION Potassium Chloride (K-Dur 10) 10 meq PO DAILY [facility] Last Admin: 12/26/18 08:45 Dose: 10 meq Documented by: Ropinirole HCl (Requip) 0.25 mg PO [facility] Last Admin: 12/26/18 20:26 Dose: 0.25 mg Documented by: Sodium Biphosphate/Sodium Phosphate (Fleet Adult) 133 ml RECTAL ONCE PRN PRN Reason: Constipation Warfarin Sodium (Coumadin) 4 mg PO TuThSa@1800 [facility] Warfarin Sodium (Coumadin) 6 mg PO MoWeFr@1800 [facility] Last Admin: 12/26/18 20:25 Dose: 6 mg Documented by: Home Medications Medication Instructions Recorded Confirmed Type amLODIPine BESYLATE [Amlodipine 5 mg PO DAILY 09/30/15 12/25/18 History Besylate] Potassium Chloride [Klor-Con 10] 10 meq PO DAILY 07/20/16 12/25/18 History Levothyroxine Sodium [Synthroid] 100 mcg PO DAILY 09/10/16 12/25/18 History Metoprolol Succinate [Toprol XL] 100 mg PO DAILY 09/10/16 12/25/18 History Warfarin [Coumadin] 4 mg PO TUTHSA 08/17/18 12/25/18 History Warfarin [Coumadin] 6 mg PO MOWEFR 08/17/18 12/25/18 History Atorvastatin [Lipitor] 20 mg PO HS 12/25/18 12/25/18 History Bisacodyl [Dulcolax] 10 mg RECTAL DAILY PRN 12/25/18 12/25/18 History Furosemide [Lasix] 20 mg PO BID 12/25/18 12/25/18 History Loperamide [Imodium] 2 mg PO TID 12/25/18 12/25/18 History Magnesium Hydroxide [Milk of 2,400 mg PO DAILY PRN 12/25/18 12/25/18 History Magnesia] Melatonin 1 mg PO HS 12/25/18 12/25/18 History Menthol-Zinc Oxide Oint 1 applic TOPICAL BID 12/25/18 12/25/18 History [Calmoseptine Oint] Na Phos,M-B/Na Phos,Di-Ba [Fleet 133 ml RECTAL ONCE PRN 12/25/18 12/25/18 History Adult] rOPINIRole HCL [Requip] 0.25 mg PO HS 12/25/18 12/25/18 History Allergies Allergy/AdvReac Type Severity Reaction Status Date / Time black pepper Allergy Severe Anaphylaxis Verified 12/25/18 17:21 Influenza Virus Vaccines Allergy Severe Unknown Verified 12/25/18 17:21 peanut Allergy Severe Anaphylaxis Verified 12/25/18 17:21 atropine [From ] Allergy Unknown Verified 12/25/18 17:21 chocolate flavor Allergy Itching Verified 12/25/18 17:21 hyoscyamine [From ] Allergy Unknown Verified 12/25/18 17:21 Iodinated Contrast- Oral and Allergy Swelling Verified 12/25/18 17:21 IV Dye [Iodinated Contrast Media - IV Dye] phenobarbital [From ] Allergy Unknown Verified 12/25/18 17:21 propoxyphene [From [place]] Allergy Unknown Verified 12/25/18 17:21 scopolamine [From ] Allergy Unknown Verified 12/25/18 17:21 Sulfa (Sulfonamide Allergy Rash/Hives Verified 12/25/18 17:21 Antibiotics) venom-honey bee Allergy Unknown Verified 12/25/18 17:21 [bee venom (honey bee)] acetaminophen [From [place]] AdvReac Hallucinati Verified 12/25/18 17:21 ons belladonna alkaloids AdvReac Unknown Verified 12/25/18 17:21 hydrocodone [From [place]] AdvReac Hallucinati Verified 12/25/18 17:21 ons simvastatin [From [place]] AdvReac WEAKNESS Verified 12/25/18 17:21 SMELT Allergy Itching Uncoded 12/25/18 17:21 Physical Exam Vitals: Vital Signs Temp Pulse Resp BP Pulse Ox 12/26/18 14:56 97.7 F 66 22 134/66 100 12/26/18 07:00 98.5 F 72 18 137/64 97 12/26/18 02:15 98.3 F 82 16 152/71 98 Intake and Output 12/26/18 12/26/18 12/27/18 14:59 22:59 06:59 Intake Total 640 Balance 640 Intake: Oral 640 Other: # Voids 1 # Bowel Movements 1 83-year-old woman who does relate to some abdominal discomfort HEENT: Anicteric conjunctiva are pink and moist nasal mucosa grossly intact without significant lesions, there is no thrush. Neck: The neck is supple without significant lymphadenopathy or thyromegaly. Lungs: Symmetrical air entry is noted where expiratory wheezes no bronchial sounds Heart: Irregular audible S1 and S2 soft S4. There is no significant murmur cli ck or rub, PMI was nondisplaced. Abdomen: Positive bowel sounds and soft there is some generalized tenderness especially over the lower quadrants without palpable mass no rigidity Extremities: The upper extremities have excellent pulses they are symmetric, no significant petechiae or telangiectasia. No splinter hemorrhages were noted. The lower extremities are free from significant edema. The peripheral pulses were 2+ and symmetric. Neuro: The patient is awake and alert she has the obvious right-sided weakness with some facial asymmetry still occurring. She is able to utilize a hand stren gthening ball into her right hand, he has weakness and some discoordination to the right leg still. Speech is slow and deliberate but easily understood Results CBC & Chem 7: 12/26/18 15:40 12/26/18 15:40 Labs: Abnormal Lab Results - Last 24 Hours (Table) 12/26/18 12/26/18 12/26/18 Range/Units 07:12 15:40 15:40 WBC 18.6 H (3.8-10.6) k/uL Neutrophils # 16.4 H (1.3-7.7) k/uL PT 18.4 H (9.0-12.0) sec INR 1.9 H (<1.2) Sodium 135 L (137-145) mmol/L BUN 23 H (7-17) mg/dL Microbiology - Last 24 Hours (Table) 12/25/18 17:25 Blood Culture - Preliminary Blood No Growth after 24 hours 12/25/18 18:15 Urine Culture - Final Urine,Catheterized Laboratory Results WBC 18.6 k/uL (3.8-10.6) H 12/26/18 15:40 RBC 3.99 m/uL (3.80-5.40) 12/26/18 15:40 Hgb 11.9 gm/dL (11.4-16.0) 12/26/18 15:40 Hct 37.2 % (34.0-46.0) 12/26/18 15:40 MCV 93.2 fL (80.0-100.0) 12/26/18 15:40 MCH 29.8 pg (25.0-35.0) 12/26/18 15:40 MCHC 32.0 g/dL (31.0-37.0) 12/26/18 15:40 RDW 14.0 % (11.5-15.5) 12/26/18 15:40 Plt Count 179 k/uL (150-450) 12/26/18 15:40 Neutrophils % 88 % 12/26/18 15:40 Lymphocytes % 5 % 12/26/18 15:40 Monocytes % 5 % 12/26/18 15:40 Eosinophils % 1 % 12/26/18 15:40 Basophils % 0 % 12/26/18 15:40 Neutrophils # 16.4 k/uL (1.3-7.7) H 12/26/18 15:40 Lymphocytes # 1.0 k/uL (1.0-4.8) 12/26/18 15:40 Monocytes # 0.9 k/uL (0-1.0) 12/26/18 15:40 Eosinophils # 0.1 k/uL (0-0.7) 12/26/18 15:40 Basophils # 0.0 k/uL (0-0.2) 12/26/18 15:40 PT 18.4 sec (9.0-12.0) H 12/26/18 07:12 INR 1.9 (<1.2) H 12/26/18 07:12 Sodium 135 mmol/L (137-145) L 12/26/18 15:40 Potassium 4.0 mmol/L (3.5-5.1) 12/26/18 15:40 Chloride 102 mmol/L (98-107) 12/26/18 15:40 Carbon Dioxide 29 mmol/L (22-30) 12/26/18 15:40 Anion Gap 4 mmol/L 12/26/18 15:40 BUN 23 mg/dL (7-17) H 12/26/18 15:40 Creatinine 0.81 mg/dL (0.52-1.04) 12/26/18 15:40 Est GFR (CKD-EPI)AfAm 78 (>60 ml/min/1.73 sqM) 12/26/18 15:40 Est GFR (CKD-EPI)NonAf 68 (>60 ml/min/1.73 sqM) 12/26/18 15:40 Glucose 98 mg/dL (74-99) 12/26/18 15:40 POC Glucose (mg/dL) 111 mg/dL (75-99) H 12/25/18 17:49 POC Glu Switch Inspector Hayley Lama 12/25/18 17:49 Plasma Lactic Acid Adrian 0.9 mmol/L (0.7-2.0) 12/25/18 17:25 Calcium 10.0 mg/dL (8.4-10.2) 12/26/18 15:40 Magnesium 2.2 mg/dL (1.6-2.3) 12/25/18 17:25 Total Bilirubin 1.0 mg/dL (0.2-1.3) 12/25/18 17:25 AST 17 U/L (14-36) 12/25/18 17:25 ALT 21 U/L (9-52) 12/25/18 17:25 Alkaline Phosphatase 93 U/L (38-126) 12/25/18 17:25 Troponin I 0.026 ng/mL (0.000-0.034) 12/25/18 17:25 Total Protein 6.4 g/dL (6.3-8.2) 12/25/18 17:25 Albumin 3.4 g/dL (3.5-5.0) L 12/25/18 17:25 Urine Color Yellow 12/25/18 18:15 Urine Appearance Clear (Clear) 12/25/18 18:15 Urine pH 6.0 (5.0-8.0) 12/25/18 18:15 Ur Specific [place] 1.023 (1.001-1.035) 12/25/18 18:15 Urine Protein 2+ (Negative) H 12/25/18 18:15 Urine Glucose (UA) Negative (Negative) 12/25/18 18:15 Urine Ketones Negative (Negative) 12/25/18 18:15 Urine Blood Trace (Negative) H 12/25/18 18:15 Urine Nitrite Negative (Negative) 12/25/18 18:15 Urine Bilirubin Negative (Negative) 12/25/18 18:15 Urine Urobilinogen <2.0 mg/dL (<2.0) 12/25/18 18:15 Ur Leukocyte Esterase Negative (Negative) 12/25/18 18:15 Urine RBC 1 /hpf (0-5) 12/25/18 18:15 Urine WBC 1 /hpf (0-5) 12/25/18 18:15 Urine Mucus Occasional /hpf (None) H 12/25/18 18:15 C. difficile (EIA) Intrp Negative (Negative) 04/22/19 20:18 Microbiology 12/25/18 17:25 Blood Blood Culture - Preliminary No Growth after 24 hours 12/25/18 18:15 Urine,Catheterized Urine Culture - Final Chest x-ray: report reviewed (without new pneumonia) Assessment and Plan (1) Leukocytosis Narrative/Plan: 83-year-old woman who has a history of a recent left basal ganglia stroke and aortic stenting is being followed in the extended care facility with rehab. She'll restart feel a bit more poorly laboratory is were performed. There is evidence of a leukocytosis of 27.6. She is followed by hematology oncology for her MDS but does not routinely have it with blood cell count of this magnitude. Currently she is been admitted. The patient doesn't exam ecchymosis and tenderness to the abdomen. CT scanning has been performed and await the results. Patient does have a history of some chronic diarrhea that seems to be worse as of late. At this time would utilize antibiotic therapy targeting the colon given her history. Unasyn will be utilized. She however does not seem to have pneumonia or urinary tract infection at this time. With her MDS she is mildly immunocompromised and may have also response to underlying infection including exaggerated leukocytosis. Cultures are in process. Current Visit: Yes Status: Acute Code(s): D72.829 - ELEVATED WHITE BLOOD C ELL COUNT, UNSPECIFIED SNOMED Code(s): 699667010 (2) Abdominal pain Current Visit: Yes Status: Acute Code(s): R10.9 - UNSPECIFIED ABDOMINAL PAIN SNOMED Code(s): 67765271 (3) History of diarrhea Current Visit: Yes Status: Acute Code(s): Z87.898 - PERSONAL HISTORY OF OTHER SPECIFIED CONDITIONS SNOMED Code(s): 642071296
[2018-12-27] MEDS: AMPICILLIN-SULBACTAM 3 GM in SODIUM CHLORIDE 0.9% 100 ML IVPB SCH ×5 (00:19→23:36)
[2018-12-27] MEDS: DEXTROSE 5%-0.45% NACL 1,000 ML IV SCH ×2 (00:19→23:38)
[2018-12-27] MEDS: LEVOTHYROXINE 100 MCG TAB PO SCH (06:11)
[2018-12-27] MEDS: FUROSEMIDE 20 MG TAB PO SCH ×2 (07:57→20:32)
[2018-12-27] MEDS: POTASSIUM CHLORIDE ER 10 MEQ TAB.ER.PRT PO SCH (07:57)
[2018-12-27] MEDS: METOPROLOL SUCCINATE (ER) 100 MG TAB.ER.24H PO SCH (07:57)
[2018-12-27] MEDS: amLODIPine 5 MG TAB PO SCH (07:57)
[2018-12-27 10:05] LABS: Basophils % (A) 0 %; Eosinophils # (A) 0.1 k/uL (0-0.7); Eosinophils % (A) 1 %; HCT 36.5 % (34.0-46.0); HGB 11.5 gm/dL (11.4-16.0); Lymphocytes # (A) 0.5 k/uL (1.0-4.8); Lymphocytes % (A) 5 %; MCH 29.3 pg (25.0-35.0); MCHC 31.5 g/dL (31.0-37.0); MCV 92.9 fL (80.0-100.0); Mean Platelet Volume 8.6; Monocytes # (A) 0.6 k/uL (0-1.0); Monocytes % (A) 5 %; Neutrophils # (A) 9.7 k/uL (1.3-7.7); Neutrophils % (A) 87 %; Platelet Count 155 k/uL (150-450); RBC 3.92 m/uL (3.80-5.40); RDW 13.7 % (11.5-15.5); WBC 11.1 k/uL (3.8-10.6)
[2018-12-27 10:08] LABS: INR 2.3 (<1.2)
[2018-12-27 10:24] LABS: Calcium 9.7 mg/dL (8.4-10.2); Potassium 3.7 mmol/L (3.5-5.1)
[2018-12-27 14:38] VITALS: BMI 25.3
--- NOTE | 2018-12-27 14:44 | P.PN ---
Subjective this is a pleasant 83 yo F with pmh of stroke, atrial fibrillation, coronary artery disease, congestive heart failure, hypertension , hyperlipidemia, hypothyroidism, deep venous thrombosis, GERD, osteoarthritis, myelodysplastic syndrome diagnosed in 2016 on oral chemotherapy, pulmonary embolism, aortic aneurysm status post stent. Patient was more worried for inpatient physical rehab after her stroke. She was sent from or [facility] for abnormal labs with leukocytosis at 20 7.7K. Patient however denies pain anywhere, no chest pain. No nausea vomiting. She is eating with no problems, she has some feeling of sticking sensation of fluid in her throat. She has mild cough with no phlegm. No dyspnea. She states denies diarrhea. Her last bowel movement was about 2 days ago No urinary complaints. However on exam she has abdominal tenderness more in the upper and left side of the abdomen. On admission patient is afebrile, vitals stable, labs reviewed showing WBC of 20 7.7K, U Lear this month was 7.9. And is gradually trending up. INR is 1.9. Sodium 133, creatinine 0.7. Urinalysis is Suspicious for Infection. EKG Showing Sinus Rhythm with Premature Atrial Complex and Left Bundle Branch Block at a Rate of 94 BPM, with QTC 500 12/27/2018 Patient was lying comfortable in her incliner, with no chest pain or dyspnea. She still has Left lower quadrant abdominal pain and tenderness. No nausea vomiting. She has good bowel movement yesterday night after she took the oral contrast. Upgraded her diet to thick nectar. Patient is hemodynamically stable. Leukocytosis improving down to 11.1 K. INR 2.3. BMP was unremarkable. Infectious and oncology team input is appreciated. Her antibiotic was changed to Unasyn. CONSTITUTIONAL: No fever, no malaise, no fatigue. HEENT: No recent visual problems or hearing problems. Denied any sore throat. CARDIOVASCULAR: No orthopnea, PND, no palpitations, no syncope. PULMONARY: No shortness of breath, no cough, no hemoptysis. GASTROINTESTINAL: . Normoactive bowel sounds. NEUROLOGICAL: No headaches, no weakness, no numbness. HEMATOLOGICAL: Denies any bleeding or petechiae. GENITOURINARY: Denies any burning micturition, frequency, or urgency. MUSCULOSKELETAL/RHEUMATOLOGICAL: Denies any joint pain, swelling, or any muscle pain. ENDOCRINE: Denies any polyuria or polydipsia. Medication: Tylenol, Norvasc, Unasyn, Lipitor, Dulcolax, D5 half-normal saline, Lasix, Synthroid, Imodium, melatonin, Toprol, Coumadin, Requip, warfarin. Objective - Vital Signs Vital signs: Vital Signs Temp 97.5 F L 12/27/18 06:29 Pulse 65 12/27/18 06:29 Resp 20 12/27/18 06:29 BP 163/68 12/27/18 06:29 Pulse Ox 97 12/27/18 06:29 Intake & Output 12/26/18 12/27/18 12/27/18 18:59 06:59 18:59 Intake Total 640 460 Balance 640 460 Weight 66.9 kg Intake: Intake, IV Titration 460 Amount Ampicillin-Sulbactam 3 gm 100 In Sodium Chloride 0.9% 100 ml @ 200 mls/hr IVPB Q6HR [facility] Rx#:[id number] Dextrose 5%-0.45% NaCl 1, 360 000 ml @ 40 mls/hr IV . Q24H [facility] Rx#:[id number] Oral 640 Other: # Voids 1 4 # Bowel Movements 1 3 - Exam GENERAL: The patient is alert and oriented x3, not in any acute distress. Well developed, well nourished. HEENT: Pupils are round and equally reacting to light. EOMI. No scleral icterus. No conjunctival pallor. Normocephalic, atraumatic. No pharyngeal erythema. No thyromegaly. CARDIOVASCULAR: S1 and S2 present. No murmurs, rubs, or gallops. PULMONARY: Chest is clear to auscultation, no wheezing or crackles. -ABDOMEN: Soft, generalized abdominal tenderness, more on the left and upper abdomen, no rebound tenderness or guarding, nondistended, normoactive bowel sounds. No palpable organomegaly. MUSCULOSKELETAL: No joint swelling or deformity. EXTREMITIES: No cyanosis, clubbing, or pedal edema. NEUROLOGICAL: Gross neurological examination did not reveal any focal deficits. SKIN: No rashes. - Labs CBC & Chem 7: 12/27/18 09:43 12/27/18 09:43 Labs: Abnormal Lab Results - Last 24 Hours (Table) 12/26/18 12/26/18 12/27/18 Range/Units 15:40 15:40 09:43 WBC 18.6 H (3.8-10.6) k/uL Neutrophils # 16.4 H (1.3-7.7) k/uL Lymphocytes # (1.0-4.8) k/uL PT 22.0 H (9.0-12.0) sec INR 2.3 H (<1.2) Sodium 135 L (137-145) mmol/L Carbon Dioxide (22-30) mmol/L BUN 23 H (7-17) mg/dL Glucose (74-99) mg/dL 12/27/18 12/27/18 Range/Units 09:43 09:43 WBC 11.1 H (3.8-10.6) k/uL Neutrophils # 9.7 H (1.3-7.7) k/uL Lymphocytes # 0.5 L (1.0-4.8) k/uL PT (9.0-12.0) sec INR (<1.2) Sodium (137-145) mmol/L Carbon Dioxide 32 H (22-30) mmol/L BUN (7-17) mg/dL Glucose 114 H (74-99) mg/dL Microbiology - Last 24 Hours (Table) 12/25/18 17:25 Blood Culture - Preliminary Blood No Growth after 24 hours 12/25/18 18:15 Urine Culture - Final Urine,Catheterized Assessment and Plan Assessment: Leukocytosis of unknown source Generalized abdominal pain and tenderness History of stroke with left facial division History of atrial fibrillation, chronic. On anticoagulation History of DVT, PE on Coumadin History of congestive heart failure Essential hypertension Hyperlipidemia Hypothyroidism History of posterior arthritis History of polyps plastic syndrome, diagnosed 2016 History of thoracic aortic aneurysm, status post stenting Plan: This is a pleasant 83 years old female who presents with leukocytosis and abdominal tenderness. We will start on Cipro and Flagyl. Check blood culture. We'll do CAT scan of the abdomen without contrast. Labs and medication were reviewed.. Continue same treatment. Continue with symptomatic treatment. Resume home medication. Monitor lytes and vitals. DVT and GI prophylaxis. Further recommendations of the clinical course of the patient DVT prophylaxis: On Coumadin GI Prophylaxis: Ppi Prognosis is guarded
[2018-12-27] MEDS ORDERED: WARFARIN 2 MG TAB PO SCH (18:00)
[2018-12-27] MEDS: MELATONIN 1 MG TAB PO SCH (20:32)
[2018-12-27] MEDS: ATORVASTATIN 20 MG TAB PO SCH (20:32)
[2018-12-27] MEDS: SODIUM CHLORIDE 0.9% 1,000 ML IV SCH (20:33)
--- NOTE | 2018-12-28 00:02 | P.PN ---
Subjective Progress Note Date: 12/27/18 83-year-old female with a significant recent past medical history associated with progressive decline of her status. She was recently hospitalized when she had the sudden onset of right-sided weakness. MRI confirmed a new left basal ganglion infarct and she was transferred to an outside facility. The patient also has a somewhat recent history of repair of aortic aneurysm with a stent. The patient is being cared for in the rehab facility and was started to feel more poorly. Some laboratories were performed and there was evidence of leukocytosis and increasing malaise. Because of this she was referred to Hospital, apparently when EMS arrived there is also some concerns for some cardiac dysfunction and was transported to our facility. With concerns underlying sepsis the infectious diseases consultation was requested. The patient herself is pleasant but somewhat of a poor historian but when given time her speech is deliberate and understandable. 12/27/2018 patient is feeling slightly better today. Appetite slowly improved. Diarrhea has resolved. The abdominal pain has improved but not resolved. Objective - Vital Signs Vital signs: Vital Signs Temp 98.3 F 12/27/18 21:08 Pulse 77 12/27/18 21:08 Resp 17 12/27/18 21:08 BP 145/77 12/27/18 21:08 Pulse Ox 99 12/27/18 21:08 Intake & Output 12/27/18 12/27/18 12/28/18 06:59 18:59 06:59 Intake Total 1000 Balance 1000 Weight 66.9 kg 66.9 kg Intake: Intake, IV Titration 460 Amount Ampicillin-Sulbactam 3 gm 100 In Sodium Chloride 0.9% 100 ml @ 200 mls/hr IVPB Q6HR [facility] Rx#:[id number] Dextrose 5%-0.45% NaCl 1, 360 000 ml @ 40 mls/hr IV . Q24H LAURY Rx#:[id number] Oral 540 Other: # Voids 4 4 # Bowel Movements 3 - Exam 83-year-old woman who does relate to some abdominal discomfort HEENT: Anicteric conjunctiva are pink and moist nasal mucosa grossly intact without significant lesions, there is no thrush. Neck: The neck is supple without significant lymphadenopathy or thyromegaly. Lungs: Symmetrical air entry is noted where expiratory wheezes no bronchial sounds Heart: Irregular audible S1 and S2 soft S4. There is no significant murmur click or rub, PMI was nondisplaced. Abdomen: Positive bowel sounds and soft there is some generalized tenderness especially over the lower quadrants without palpable mass no rigidity Extremities: The upper extremities have excellent pulses they are symmetric, no significant petechiae or telangiectasia. No splinter hemorrhages were noted. The lower extremities are free from significant edema. The peripheral pulses were 2+ and symmetric. Neuro: The patient is awake and alert she has the obvious right-sided weakness with some facial asymmetry still occurring. She is able to utilize a hand strengthening ball into her right hand, he has weakness and some discoordination to the right leg still. Speech is slow and deliberate but easily understood - Labs CBC & Chem 7: 12/27/18 09:43 12/27/18 09:43 Labs: Abnormal Lab Results - Last 24 Hours (Table) 12/27/18 12/27/18 12/27/18 Range/Units 09:43 09:43 09:43 WBC 11.1 H (3.8-10.6) k/uL Neutrophils # 9.7 H (1.3-7.7) k/uL Lymphocytes # 0.5 L (1.0-4.8) k/uL PT 22.0 H (9.0-12.0) sec INR 2.3 H (<1.2) Carbon Dioxide 32 H (22-30) mmol/L Glucose 114 H (74-99) mg/dL Microbiology - Last 24 Hours (Table) 12/25/18 17:25 Blood Culture - Preliminary Blood No Growth after 48 hours 12/26/18 15:40 Blood Culture - Preliminary Blood No Growth after 24 hours 12/26/18 15:40 Blood Culture - Preliminary Blood No Growth after 24 hours Laboratory Results WBC 11.1 k/uL (3.8-10.6) H 12/27/18 09:43 RBC 3.92 m/uL (3.80-5.40) 12/27/18 09:43 Hgb 11.5 gm/dL (11.4-16.0) 12/27/18 09:43 Hct 36.5 % (34.0-46.0) 12/27/18 09:43 MCV 92.9 fL (80.0-100.0) 12/27/18 09:43 MCH 29.3 pg (25.0-35.0) 12/27/18 09:43 MCHC 31.5 g/dL (31.0-37.0) 12/27/18 09:43 RDW 13.7 % (11.5-15.5) 12/27/18 09:43 Plt Count 155 k/uL (150-450) 12/27/18 09:43 Neutrophils % 87 % 12/27/18 09:43 Lymphocytes % 5 % 12/27/18 09:43 Monocytes % 5 % 12/27/18 09:43 Eosinophils % 1 % 12/27/18 09:43 Basophils % 0 % 12/27/18 09:43 Neutrophils # 9.7 k/uL (1.3-7.7) H 12/27/18 09:43 Lymphocytes # 0.5 k/uL (1.0-4.8) L 12/27/18 09:43 Monocytes # 0.6 k/uL (0-1.0) 12/27/18 09:43 Eosinophils # 0.1 k/uL (0-0.7) 12/27/18 09:43 Basophils # 0.0 k/uL (0-0.2) 12/27/18 09:43 PT 22.0 sec (9.0-12.0) H 12/27/18 09:43 INR 2.3 (<1.2) H 12/27/18 09:43 Sodium 137 mmol/L (137-145) 12/27/18 09:43 Potassium 3.7 mmol/L (3.5-5.1) 12/27/18 09:43 Chloride 100 mmol/L (98-107) 12/27/18 09:43 Carbon Dioxide 32 mmol/L (22-30) H 12/27/18 09:43 Anion Gap 5 mmol/L 12/27/18 09:43 BUN 17 mg/dL (7-17) 12/27/18 09:43 Creatinine 0.76 mg/dL (0.52-1.04) 12/27/18 09:43 Est GFR (CKD-EPI)AfAm 84 (>60 ml/min/1.73 sqM) 12/27/18 09:43 Est GFR (CKD-EPI)NonAf 73 (>60 ml/min/1.73 sqM) 12/27/18 09:43 Glucose 114 mg/dL (74-99) H 12/27/18 09:43 POC Glucose (mg/dL) 111 mg/dL (75-99) H 12/25/18 17:49 POC Glu Field Staff ID Hayley Chavez 12/25/18 17:49 Plasma Lactic Acid Adrian 0.9 mmol/L (0.7-2.0) 12/25/18 17:25 Calcium 9.7 mg/dL (8.4-10.2) 12/27/18 09:43 Magnesium 2.2 mg/dL (1.6-2.3) 12/25/18 17:25 Total Bilirubin 1.0 mg/dL (0.2-1.3) 12/25/18 17:25 AST 17 U/L (14-36) 12/25/18 17:25 ALT 21 U/L (9-52) 12/25/18 17:25 Alkaline Phosphatase 93 U/L (38-126) 12/25/18 17:25 Troponin I 0.026 ng/mL (0.000-0.034) 12/25/18 17:25 Total Protein 6.4 g/dL (6.3-8.2) 12/25/18 17:25 Albumin 3.4 g/dL (3.5-5.0) L 12/25/18 17:25 Urine Color Yellow 12/25/18 18:15 Urine Appearance Clear (Clear) 12/25/18 18:15 Urine pH 6.0 (5.0-8.0) 12/25/18 18:15 Ur Specific [place] 1.023 (1.001-1.035) 12/25/18 18:15 Urine Protein 2+ (Negative) H 12/25/18 18:15 Urine Glucose (UA) Negative (Negative) 12/25/18 18:15 Urine Ketones Negative (Negative) 12/25/18 18:15 Urine Blood Trace (Negative) H 12/25/18 18:15 Urine Nitrite Negative (Negative) 12/25/18 18:15 Urine Bilirubin Negative (Negative) 12/25/18 18:15 Urine Urobilinogen <2.0 mg/dL (<2.0) 12/25/18 18:15 Ur Leukocyte Esterase Negative (Negative) 12/25/18 18:15 Urine RBC 1 /hpf (0-5) 12/25/18 18:15 Urine WBC 1 /hpf (0-5) 12/25/18 18:15 Urine Mucus Occasional /hpf (None) H 12/25/18 18:15 C. difficile (EIA) Intrp Negative (Negative) 12/26/18 20:18 Microbiology 12/25/18 17:25 Blood Blood Culture - Preliminary No Growth after 48 hours 12/26/18 15:40 Blood Blood Culture - Preliminary No Growth after 24 hours 12/26/18 15:40 Blood Blood Culture - Preliminary No Growth after 24 hours 12/25/18 18:15 Urine,Catheterized Urine Culture - Final Assessment and Plan (1) Leukocytosis Narrative/Plan: 83-year-old woman who has a history of a recent left basal ganglia stroke and aortic stenting is being followed in the extended care facility with rehab. She'll restart feel a bit more poorly laboratory is were performed. There is evidence of a leukocytosis of 27.6. She is followed by hematology oncology for her MDS but does not routinely have it with blood cell count of this magnitude. Currently she is been admitted. The patient doesn't exam ecchymosis and tenderness to the abdomen. CT scanning has been performed and await the results. Patient does have a history of some chronic diarrhea that seems to be worse as of late. At this time would utilize antibiotic therapy targeting the colon given her history. Unasyn will be utilized. She however does not seem to have pneumonia or urinary tract infection at this time. With her MDS she is mildly immunocompromised and may have also response to underlying infection including exaggerated leukocytosis. Cultures are in process. 12/27/2018 patient has significant leukocytosis at admission that is improved to 11.1 today with treatment of the underlying acute diverticulitis. Is tolerating Unasyn well. She seems to overall be feeling somewhat better without other sources of infection at this time. The diarrhea appears to be in the basis of the current diverticulitis no evidence of any C. diff colitis is been found. Small doses of Imodium are being given and it helped her diarrhea and no bowel discomfort somewhat. Continue Unasyn for now monitor her improvement. Current Visit: Yes Status: Acute Code(s): D72.829 - ELEVATED WHITE BLOOD CELL COUNT, UNSPECIFIED SNOMED Code(s): 834143509 (2) Abdominal pain Current Visit: Yes Status: Acute Code(s): R10.9 - UNSPECIFIED ABDOMINAL PAIN SNOMED Code(s): 75881067 (3) History of diarrhea Current Visit: Yes Status: Acute Code(s): Z87.898 - PERSONAL HISTORY OF OTHER SPECIFIED CONDITIONS SNOMED Code(s): 323966864
[2018-12-28] MEDS: LEVOTHYROXINE 100 MCG TAB PO SCH (05:09)
[2018-12-28] MEDS: AMPICILLIN-SULBACTAM 3 GM in SODIUM CHLORIDE 0.9% 100 ML IVPB SCH ×3 (05:09→17:04)
[2018-12-28 07:57] LABS: Basophils % (A) 0 %; Eosinophils # (A) 0.1 k/uL (0-0.7); Eosinophils % (A) 1 %; HCT 37.7 % (34.0-46.0); HGB 11.9 gm/dL (11.4-16.0); Lymphocytes # (A) 0.7 k/uL (1.0-4.8); Lymphocytes % (A) 7 %; MCH 29.3 pg (25.0-35.0); MCHC 31.5 g/dL (31.0-37.0); Monocytes # (A) 0.6 k/uL (0-1.0); Monocytes % (A) 5 %; Neutrophils # (A) 9.4 k/uL (1.3-7.7); Neutrophils % (A) 85 %; Platelet Count 168 k/uL (150-450); RBC 4.06 m/uL (3.80-5.40)
[2018-12-28 08:21] LABS: INR 3.4 (<1.2); Prothrombin Time 32.9 sec (9.0-12.0)
[2018-12-28] MEDS: POTASSIUM CHLORIDE ER 10 MEQ TAB.ER.PRT PO SCH (08:40)
[2018-12-28] MEDS: METOPROLOL SUCCINATE (ER) 100 MG TAB.ER.24H PO SCH (08:40)
[2018-12-28] MEDS: FUROSEMIDE 20 MG TAB PO SCH ×2 (08:41→20:42)
[2018-12-28] MEDS: amLODIPine 5 MG TAB PO SCH (08:41)
--- NOTE | 2018-12-28 13:33 | P.PN ---
Subjective this is a pleasant 83 yo F with pmh of stroke, atrial fibrillation, coronary artery disease, congestive heart failure, hypertension , hyperlipidemia, hypothyroidism, deep venous thrombosis, GERD, osteoarthritis, myelodysplastic syndrome diagnosed in 2016 on oral chemotherapy, pulmonary embolism, aortic aneurysm status post stent. Patient was more worried for inpatient physical rehab after her stroke. She was sent from or [facility] for abnormal labs with leukocytosis at 20 7.7K. Patient however denies pain anywhere, no chest pain. No nausea vomiting. She is eating with no problems, she has some feeling of sticking sensation of fluid in her throat. She has mild cough with no phlegm. No dyspnea. She states denies diarrhea. Her last bowel movement was about 2 days ago No urinary complaints. However on exam she has abdominal tenderness more in the upper and left side of the abdomen. On admission patient is afebrile, vitals stable, labs reviewed showing WBC of 20 7.7K, U Lear this month was 7.9. And is gradually trending up. INR is 1.9. Sodium 133, creatinine 0.7. Urinalysis is Suspicious for Infection. EKG Showing Sinus Rhythm with Premature Atrial Complex and Left Bundle Branch Block at a Rate of 94 BPM, with QTC 500 12/27/2018 Patient was lying comfortable in her incliner, with no chest pain or dyspnea. She still has Left lower quadrant abdominal pain and tenderness. No nausea vomiting. She has good bowel movement yesterday night after she took the oral contrast. Upgraded her diet to thick nectar. Patient is hemodynamically stable. Leukocytosis improving down to 11.1 K. INR 2.3. BMP was unremarkable. Infectious and oncology team input is appreciated. Her antibiotic was changed to Unasyn. 12/28/2018 Patient was sitting in chair trying to eat her food. No new complaints. No chest pain or dyspnea. She still have some swallowing difficulty which is ongoing for a while.Patient diet has been switched according to her swallow evaluation after speech and swallow. She still has left abdominal tenderness with no rebound tenderness. No nausea vomiting. Vitals stable. WBC is 11 K. INR is 3.4. We'll hold Coumadin. Patient is generally weak. Plan for her to go to rehab, [facility] upon discharge. CONSTITUTIONAL: No fever, no malaise, no fatigue. HEENT: No recent visual problems or hearing problems. Denied any sore throat. CARDIOVASCULAR: No orthopnea, PND, no palpitations, no syncope. PULMONARY: No shortness of breath, no cough, no hemoptysis. GASTROINTESTINAL: . Normoactive bowel sounds. NEUROLOGICAL: No headaches, no weakness, no numbness. HEMATOLOGICAL: Denies any bleeding or petechiae. GENITOURINARY: Denies any burning micturition, frequency, or urgency. MUSCULOSKELETAL/RHEUMATOLOGICAL: Denies any joint pain, swelling, or any muscle pain. ENDOCRINE: Denies any polyuria or polydipsia. Medication: Tylenol, Norvasc, Unasyn, Lipitor, Dulcolax, D5 half-normal saline, Lasix, Synthroid, Imodium, melatonin, Toprol, Coumadin, Requip, warfarin. Objective - Vital Signs Vital signs: Vital Signs Temp 98.2 F 12/28/18 05:15 Pulse 84 12/28/18 05:15 Resp 17 12/28/18 05:15 BP 130/61 12/28/18 05:15 Pulse Ox 99 12/28/18 05:15 Intake & Output 12/27/18 12/28/18 12/28/18 18:59 06:59 18:59 Intake Total 1000 540 Balance 1000 540 Weight 66.9 kg 66.5 kg Intake: Intake, IV Titration 460 Amount Ampicillin-Sulbactam 3 gm 100 In Sodium Chloride 0.9% 100 ml @ 200 mls/hr IVPB Q6HR [facility] Rx#:[id number] Dextrose 5%-0.45% NaCl 1, 360 000 ml @ 40 mls/hr IV . Q24H LAURY Rx#:[id number] Oral 540 540 Other: # Voids 4 3 2 - Exam GENERAL: The patient is alert and oriented x3, not in any acute distress. Well developed, well nourished. HEENT: Pupils are round and equally reacting to light. EOMI. No scleral icterus. No conjunctival pallor. Normocephalic, atraumatic. No pharyngeal erythema. No thyromegaly. CARDIOVASCULAR: S1 and S2 present. No murmurs, rubs, or gallops. PULMONARY: Chest is clear to auscultation, no wheezing or crackles. -ABDOMEN: Soft, generalized abdominal tenderness, more on the left and upper abdomen, no rebound tenderness or guarding, nondistended, normoactive bowel sounds. No palpable organomegaly. MUSCULOSKELETAL: No joint swelling or deformity. EXTREMITIES: No cyanosis, clubbing, or pedal edema. NEUROLOGICAL: Gross neurological examination did not reveal any focal deficits. SKIN: No rashes. - Labs CBC & Chem 7: 12/28/18 07:37 12/27/18 09:43 Labs: Abnormal Lab Results - Last 24 Hours (Table) 12/28/18 12/28/18 Range/Units 07:37 07:37 WBC 11.0 H (3.8-10.6) k/uL Neutrophils # 9.4 H (1.3-7.7) k/uL Lymphocytes # 0.7 L (1.0-4.8) k/uL PT 32.9 H (9.0-12.0) sec INR 3.4 H (<1.2) Microbiology - Last 24 Hours (Table) 12/25/18 17:25 Blood Culture - Preliminary Blood No Growth after 48 hours 12/26/18 15:40 Blood Culture - Preliminary Blood No Growth after 24 hours 12/26/18 15:40 Blood Culture - Preliminary Blood No Growth after 24 hours Assessment and Plan Assessment: Leukocytosis of unknown source Generalized abdominal pain and tenderness History of stroke with left facial division History of atrial fibrillation, chronic. On anticoagulation History of DVT, PE on Coumadin History of congestive heart failure Essential hypertension Hyperlipidemia Hypothyroidism History of posterior arthritis History of polyps plastic syndrome, diagnosed 2016 History of thoracic aortic aneurysm, status post stenting Plan: This is a pleasant 83 years old female who presents with leukocytosis and abdominal tenderness. We will start on Cipro and Flagyl. Check blood culture. We'll do CAT scan of the abdomen without contrast. Labs and medication were reviewed.. Continue same treatment. Continue with symptomatic treatment. Resume home medication. Monitor lytes and vitals. DVT and GI prophylaxis. Further recommendations of the clinical course of the patient DVT prophylaxis: On Coumadin GI Prophylaxis: Ppi Prognosis is guarded
--- NOTE | 2018-12-28 17:28 | P.PN ---
Subjective Progress Note Date: 12/28/18 Principal diagnosis: History of MDS, on observation In follow-up today patient is sitting in the chair, she has no acute complaints, no fevers, nausea, vomiting, diarrhea or constipation, bleeding or pain Objective - Vital Signs Vital signs: Vital Signs Temp 97.8 F 12/28/18 12:30 Pulse 68 12/28/18 12:30 Resp 16 12/28/18 12:30 BP 118/64 12/28/18 12:30 Pulse Ox 100 12/28/18 12:30 Intake & Output 12/27/18 12/28/18 12/28/18 18:59 06:59 18:59 Intake Total 1000 540 Balance 1000 540 Weight 66.9 kg 66.5 kg Intake: Intake, IV Titration 460 Amount Ampicillin-Sulbactam 3 gm 100 In Sodium Chloride 0.9% 100 ml @ 200 mls/hr IVPB Q6HR LAURY Rx#:[id number] Dextrose 5%-0.45% NaCl 1, 360 000 ml @ 40 mls/hr IV . Q24H LAURY Rx#:[id number] Oral 540 540 Other: # Voids 4 3 1 # Bowel Movements 1 - Constitutional General appearance: Present: average body habitus, cooperative, no acute distress - EENT Eyes: Present: anicteric sclerae ENT: Present: hearing grossly normal - Respiratory Details: Respirations even and unlabored - Neurologic Neurologic Comment(s): Patient is noted to have slightly slurred speech, mild right mouth deficit - Psychiatric Psychiatric: Present: A&O x's 3, appropriate affect, intact judgment & insight - Labs CBC & Chem 7: 12/28/18 07:37 12/27/18 09:43 Labs: Abnormal Lab Results - Last 24 Hours (Table) 12/28/18 12/28/18 Range/Units 07:37 07:37 WBC 11.0 H (3.8-10.6) k/uL Neutrophils # 9.4 H (1.3-7.7) k/uL Lymphocytes # 0.7 L (1.0-4.8) k/uL PT 32.9 H (9.0-12.0) sec INR 3.4 H (<1.2) Microbiology - Last 24 Hours (Table) 12/25/18 17:25 Blood Culture - Preliminary Blood No Growth after 48 hours 12/26/18 15:40 Blood Culture - Preliminary Blood No Growth after 24 hours 12/26/18 15:40 Blood Culture - Preliminary Blood No Growth after 24 hours Assessment and Plan (1) Leukocytosis Narrative/Plan: Patient's white blood cell count is trending down nicely with treatment of diverticulitis. Continue treatment per Infectious Disease plan Current Visit: Yes Status: Acute Priority: Low Code(s): D72.829 - ELEVATED WHITE BLOOD CELL COUNT, UNSPECIFIED SNOMED Code(s): 399282804 (2) MDS (myelodysplastic syndrome), low grade Narrative/Plan: Low-grade myelodysplastic syndrome, no recent treatment, patient has been on observation, no need for any further workup at this time, no need for any intervention at this time. CBC is near normal limits. Patient does have a follow-up scheduled with Dr. Coleman in 1 month, she will keep that appointment. Current Visit: Yes Status: Chronic Priority: Low Code(s): D46.20 - REFRACTORY ANEMIA WITH EXCESS OF BLASTS, UNSPECIFIED SNOMED Code(s): 241158860
[2018-12-28] MEDS: SODIUM CHLORIDE 0.9% 1,000 ML IV SCH (17:51)
[2018-12-28] MEDS ORDERED: WARFARIN 0.5 MG TAB PO ONE (18:00)
[2018-12-28] MEDS: MELATONIN 1 MG TAB PO SCH (20:42)
[2018-12-28] MEDS: ATORVASTATIN 20 MG TAB PO SCH (20:42)
[2018-12-28] MEDS: LOPERAMIDE 2 MG CAP PO PRN (21:33)
[2018-12-28 22:41] LABS: Anion Gap 7 mmol/L; Blood Urea Nitrogen 13 mg/dL (7-17); Calcium 9.3 mg/dL (8.4-10.2); Carbon Dioxide 28 mmol/L (22-30); Chloride 103 mmol/L (98-107); Glucose 102 mg/dL (74-99); Potassium 3.4 mmol/L (3.5-5.1); Sodium 138 mmol/L (137-145)
[2018-12-28 22:55] VITALS: RESP 18
[2018-12-28] MEDS ORDERED: POTASSIUM CHLORIDE ER 20 MEQ TAB.ER PO STA (22:55)
[2018-12-28] MEDS: DEXTROSE 5%-0.45% NACL 1,000 ML IV SCH (23:24)
[2018-12-29] MEDS: ACETAMINOPHEN TAB 325 MG TAB PO PRN (00:18)
[2018-12-29] MEDS: AMPICILLIN-SULBACTAM 3 GM in SODIUM CHLORIDE 0.9% 100 ML IVPB SCH ×3 (00:20→11:34)
[2018-12-29] MEDS: LEVOTHYROXINE 100 MCG TAB PO SCH (05:23)
[2018-12-29 08:03] VITALS: BP 146/80; PULSE 75; TEMP 97.8
[2018-12-29 08:07] LABS: Basophils % (A) 0 %; Eosinophils # (A) 0.1 k/uL (0-0.7); Eosinophils % (A) 2 %; HCT 35.9 % (34.0-46.0); HGB 11.5 gm/dL (11.4-16.0); Lymphocytes # (A) 0.6 k/uL (1.0-4.8); Lymphocytes % (A) 8 %; MCH 30.2 pg (25.0-35.0); MCHC 32.2 g/dL (31.0-37.0); MCV 93.7 fL (80.0-100.0); Mean Platelet Volume 8.6; Monocytes # (A) 0.5 k/uL (0-1.0); Monocytes % (A) 6 %; Neutrophils % (A) 82 %; Platelet Count 195 k/uL (150-450); RBC 3.83 m/uL (3.80-5.40); RDW 13.8 % (11.5-15.5); WBC 7.3 k/uL (3.8-10.6)
[2018-12-29] MEDS: METOPROLOL SUCCINATE (ER) 100 MG TAB.ER.24H PO SCH (08:09)
[2018-12-29] MEDS: FUROSEMIDE 20 MG TAB PO SCH (08:09)
[2018-12-29] MEDS: amLODIPine 5 MG TAB PO SCH (08:09)
[2018-12-29] MEDS: POTASSIUM CHLORIDE ER 10 MEQ TAB.ER.PRT PO SCH (08:09)
[2018-12-29 08:20] LABS: INR 3.9 (<1.2); Prothrombin Time 37.9 sec (9.0-12.0)
--- NOTE | 2018-12-29 10:03 | XR ---
EXAMINATION TYPE: XR abdomen 2V DATE OF EXAM: 12/29/2018 9:53 AM CLINICAL HISTORY: Abdominal pain and diverticulitis TECHNIQUE: Supine and upright images of the abdomen were obtained. COMPARISON: CT abdomen dated 12/26/2018. FINDINGS: Stent graft is seen within the thoracic aortic aneurysm. Visualized portions of the lungs a re well aerated. Inferior vena cava filter is present. Oral contrast is seen within the colon with nu merous sigmoid diverticula. No dilated large or small bowel although there is gaseous distention of t he colon up to 5.6 cm. No pneumoperitoneum is appreciated. Mild levoscoliosis of the spine and modera te degenerative changes of the osseous structures are present. IMPRESSION: 1. No pneumoperitoneum. 2. Nonobstructive bowel gas pattern. Oral contrast extends to the level of the sigmoid colon with num erous sigmoid diverticula are noted.
--- NOTE | 2018-12-29 14:34 | P.DS ---
Providers Date of admission: 12/25/18 18:45 Attending physician: Petros Lynch MD Consults: 12/25/18 18:46 Consult Physician Routine Consulting Provider: Jean Anderson Consult Reason/Comments: sirs Do you want consulting provider notified?: Yes 12/25/18 18:47 Consult Physician Routine Consulting Provider: Pradip Coleman Consult Reason/Comments: history of MDS Do you want consulting provider notified?: Yes Primary care physician: Rahul Peralta Hospital Course: Diagnoses: Leukocytosis secondary to diverticulitis, improved Diverticulitis, improving Mild dysphagia and swallowing difficulty secondary to stroke History of stroke with left facial division History of atrial fibrillation, chronic. On anticoagulation History of DVT, PE on Coumadin Supratherapeutic INR History of congestive heart failure Essential hypertension Hyperlipidemia Hypothyroidism History of posterior arthritis History of polyps plastic syndrome, diagnosed 2016 History of thoracic aortic aneurysm, status post stenting Hospital course: This is a pleasant 83 years old female who presents with signs symptoms of leukocytosis and abdominal pain and tenderness in the left lower quadrant. CAT scan of the abdomen showed diverticulitis. The patient has diarrhea about once daily. Patient was been evaluated by infectious disease specialist and this was started on antibiotics in the form of Unasyn. Patient showed interval improvement in her symptoms. And on the day of discharge her abdominal pain is minimal, she hasn't only 1 small size bowel movement. No nausea vomiting and she is tolerating diet well. Her white cell count came back to normal at 7.3K. pt will be discharged on augmentin upon ID team recommendation. pt wanted her requip to be stopped because she thinks it disturbs her sleep. she has RLS Swallow evaluation recommended modified diet for her. pt will need chopped diet For her history of myelodysplastic syndrome, patient has been evaluated by oncology/hematology team recommended no further workup or treatment to follow-up with her oncologist as outpatient. Patient already has an outpatient appointment with Dr. coleman on 01/26/2019. Patient was cleared for discharge by infectious team and hematology/oncology team Problems and management plan was discussed with the patient and she verbalized understanding and acceptance Patient was found stable and can be discharged home and guarded prognosis however she needs follow-up as an outpatient. Patient was instructed to follow up with her PCP in one week, also she was referred to gastroenterology team as an outpatient. discharge instructions: pt has supratherapeutic INR upon discharge at 3.9. coumadin is on hold. Her Target INR is 2-3. please keep checking INR daily till it is at therapeutic level (2-3) then resume her coumadin. please monitor for signs and symptoms of bleeding . check her hemoglobin frequently discharge exam physical exam Gen.: Patient alert awake and oriented X 3, NOT IN DISTRESS CVS: s1-s2, RRR, no murmur CHEST:bilateral CTA, no wheezing or crepitation Abdomen: Soft, no tenderness, no distention, positive bowel sounds Extremities: No leg edema or induration neuro: She is alert awake oriented x3. Motor and sensation intact in all extremities . left facial division. Time spent more than 35 minutes Patient Condition at Discharge: Fair Plan - Discharge Summary Discharge Rx Participant: No New Discharge Prescriptions: New Amoxic-Pot Clav 875-125Mg [Augmentin 875-125] 1 tab PO Q12HR #20 tablet No Action amLODIPine BESYLATE [Amlodipine Besylate] 5 mg PO DAILY Potassium Chloride [Klor-Con 10] 10 meq PO DAILY Levothyroxine Sodium [Synthroid] 100 mcg PO DAILY Metoprolol Succinate [Toprol XL] 100 mg PO DAILY Warfarin [Coumadin] 6 mg PO MOWEFR Warfarin [Coumadin] 4 mg PO TUTHSA rOPINIRole HCL [Requip] 0.25 mg PO HS Melatonin 1 mg PO HS Magnesium Hydroxide [Milk of Magnesia] 2,400 mg PO DAILY PRN PRN Reason: CONSTIPATION Loperamide [Imodium] 2 mg PO TID Furosemide [Lasix] 20 mg PO BID Na Phos,M-B/Na Phos,Di-Ba [Fleet Adult] 133 ml RECTAL ONCE PRN PRN Reason: Constipation Bisacodyl [Dulcolax] 10 mg RECTAL DAILY PRN PRN Reason: Constipation Menthol-Zinc Oxide Oint [Calmoseptine Oint] 1 applic TOPICAL BID Atorvastatin [Lipitor] 20 mg PO HS Discharge Medication List amLODIPine BESYLATE [Amlodipine Besylate] 5 mg PO DAILY 09/30/15 [History] Potassium Chloride [Klor-Con 10] 10 meq PO DAILY 07/20/16 [History] Levothyroxine Sodium [Synthroid] 100 mcg PO DAILY 09/10/16 [History] Metoprolol Succinate [Toprol XL] 100 mg PO DAILY 09/10/16 [History] Warfarin [Coumadin] 4 mg PO TUTHSA 08/17/18 [History] Warfarin [Coumadin] 6 mg PO MOWEFR 08/17/18 [History] Atorvastatin [Lipitor] 20 mg PO HS 12/25/18 [History] Bisacodyl [Dulcolax] 10 mg RECTAL DAILY PRN 12/25/18 [History] Furosemide [Lasix] 20 mg PO BID 12/25/18 [History] Loperamide [Imodium] 2 mg PO TID 12/25/18 [History] Magnesium Hydroxide [Milk of Magnesia] 2,400 mg PO DAILY PRN 12/25/18 [History] Melatonin 1 mg PO HS 12/25/18 [History] Menthol-Zinc Oxide Oint [Calmoseptine Oint] 1 applic TOPICAL BID 12/25/18 [History] Na Phos,M-B/Na Phos,Di-Ba [Fleet Adult] 133 ml RECTAL ONCE PRN 12/25/18 [History] rOPINIRole HCL [Requip] 0.25 mg PO HS 12/25/18 [History] Amoxic-Pot Clav 875-125Mg [Augmentin 875-125] 1 tab PO Q12HR #20 tablet 12/29/18 [Rx] Follow up Appointment(s)/Referral(s): Fabian Kay MD [Primary Care Provider] - 1-2 days Rachel Gallegos MD [STAFF PHYSICIAN] - 2 Weeks (district gauger for your Diverticulitis ) Chana Escalona, [NON-STAFF] - As Needed Pradip Coleman MD [STAFF PHYSICIAN] - 01/26/19 1:15 pm Patient Instructions/Handouts: Diverticulitis (DC)
--- NOTE | 2018-12-29 15:44 | CDI ---
Documentation Clarification Form Date: 12/29/2018 3:30:03 PM From: Daisy Mahan RN, CCDS Admit Date: 12/25/2018 6:45:00 PM Patient Name: Daisy Aragon Visit Number: [id number] Discharge Date: 12/29/2018 3:20:00 PM ATTENTION: The Clinical Documentation Specialists (CDI) and [facility] Coding Staff appreciate your assistance in clarifying documentation. Please respond to the clarification below the line at the bottom and electronically sign. The CDI & [facility] Coding staff will review the response and follow-up if needed. Please note: Queries are made part of the Legal Health Record. If you have any questions, please contact the author of this message via ITS. Dr. Petros Lynch CHF is documented in the past medical history your H/P and ongoing progress notes and additional clarification is needed. History/Risk Factors: Atrial Fibrillation, CAD, Heart Failure, CVA, Hypertension, MDS, Chronic Thrombophlebitis, Diverticular disease, Chronic anemia, Clinical Indicators: Present by EMS for elevated white count. Patient has been having 3-4 days of shortness of breath and generalized fatigue. Lungs clear to auscultation, bilaterally. Chest x-ray nonacute VS/Pulse ox: 166/58 91 18 96 % RA Echocardiogram Results: 12/19/18 EF 45-50 % Treatment: Lasix PO Toprol XL Norvasc PO In your professional opinion, can you please clarify the acuity and type of CHF if known? Chronic Systolic Heart Failure Chronic Systolic & Diastolic Heart Failure: Unable to Determine Other, please specify (Last Revision: December 2017) Chronic Systolic Heart Failure MTDD
[2018-12-29] MEDS ORDERED: WARFARIN 0.5 MG TAB PO ONE (18:00)
--- NOTE | 2018-12-29 22:03 | P.PN ---
Subjective Progress Note Date: 12/29/18 83-year-old female with a significant recent past medical history associated with progressive decline of her status. She was recently hospitalized when she had the sudden onset of right-sided weakness. MRI confirmed a new left basal ganglion infarct and she was transferred to an outside facility. The patient also has a somewhat recent history of repair of aortic aneurysm with a stent. The patient is being cared for in the rehab facility and was started to feel more poorly. Some laboratories were performed and there was evidence of leukocytosis and increasing malaise. Because of this she was referred to Hospital, apparently when EMS arrived there is also some concerns for some cardiac dysfunction and was transported to our facility. With concerns underlying sepsis the infectious diseases consultation was requested. The patient herself is pleasant but somewhat of a poor historian but when given time her speech is deliberate and understandable. 12/27/2018 patient is feeling slightly better today. Appetite slowly improved. Diarrhea has resolved. The abdominal pain has improved but not resolved. 12/29/2018 patient is feeling better but still having some difficulty with meals but is not chocking or having emesis. Objective - Vital Signs Vital signs: Vital Signs Temp 97.8 F 12/29/18 07:00 Pulse 75 12/29/18 07:00 Resp 18 12/29/18 07:00 BP 146/80 12/29/18 07:00 Pulse Ox 98 12/29/18 12:30 Intake & Output 12/29/18 12/29/18 12/30/18 06:59 18:59 06:59 Intake Total 320 240 Balance 320 240 Weight 67.5 kg Intake: Intake, IV Titration 320 Amount Dextrose 5%-0.45% NaCl 1, 320 000 ml @ 40 mls/hr IV . Q24H [facility] Rx#:[id number] Oral 240 Other: Voiding Method Toilet # Voids 1 3 - Exam 83-year-old woman who does relate to some abdominal discomfort HEENT: Anicteric conjunctiva are pink and moist nasal mucosa grossly intact without significant lesions, there is no thrush. Neck: The neck is supple without significant lymphadenopathy or thyromegaly. Lungs: Symmetrical air entry is noted where expiratory wheezes no bronchial sounds Heart: Irregular audible S1 and S2 soft S4. There is no significant murmur click or rub, PMI was nondisplaced. Abdomen: Positive bowel sounds and soft there is some generalized tenderness especially over the lower quadrants without palpable mass no rigidity Extremities: The upper extremities have excellent pulses they are symmetric, no significant petechiae or telangiectasia. No splinter hemorrhages were noted. The lower extremities are free from significant edema. The peripheral pulses were 2+ and symmetric. Neuro: The patient is awake and alert she has the obvious right-sided weakness with some facial asymmetry still occurring. She is able to utilize a hand strengthening ball into her right hand, he has weakness and some discoordination to the right leg still. Speech is slow and deliberate but easily understood - Labs CBC & Chem 7: 12/29/18 07:20 12/28/18 07:34 Labs: Abnormal Lab Results - Last 24 Hours (Table) 12/28/18 12/29/18 12/29/18 Range/Units 07:34 07:20 07:20 Lymphocytes # 0.6 L (1.0-4.8) k/uL PT 37.9 H (9.0-12.0) sec INR 3.9 H (<1.2) Potassium 3.4 L (3.5-5.1) mmol/L Glucose 102 H (74-99) mg/dL Microbiology - Last 24 Hours (Table) 12/25/18 17:25 Blood Culture - Preliminary Blood No Growth after 96 hours 12/26/18 15:40 Blood Culture - Preliminary Blood No Growth after 72 hours 12/26/18 15:40 Blood Culture - Preliminary Blood No Growth after 72 hours Assessment and Plan (1) Leukocytosis Narrative/Plan: 83-year-old woman who has a history of a recent left basal ganglia stroke and aortic stenting is being followed in the extended care facility with rehab. She'll restart feel a bit more poorly laboratory is were performed. There is evidence of a leukocytosis of 27.6. She is followed by hematology oncology for her MDS but does not routinely have it with blood cell count of this magnitude. Currently she is been admitted. The patient doesn't exam ecchymosis and tender ness to the abdomen. CT scanning has been performed and await the results. Patient does have a history of some chronic diarrhea that seems to be worse as of late. At this time would utilize antibiotic therapy targeting the colon given her history. Unasyn will be utilized. She however does not seem to have pneumonia or urinary tract infection at this time. With her MDS she is mildly immunocompromised and may have also response to underlying infection including exaggerated leukocytosis. Cultures are in process. 12/27/2018 patient has significant leukocytosis at admission that is improved to 11.1 today with treatment of the underlying acute diverticulitis. Is tolerating Unasyn well. She seems to overall be feeling somewhat better without other sources of infection at this time. The diarrhea appears to be in the basis of the current diverticulitis no evidence of any C. diff colitis is been found. Small doses of Imodium are being given and it helped her diarrhea and no bowel discomfort somewhat. Continue Unasyn for now monitor her improvement. 12/29/2018 Patient is now had marked improvement. Be ready for discharge to extended care. Unasyn is transitioned to Augmentin to complete 10 days of therapy for her couple complicated diverticulitis. Daughter is present and is encouraged to help her mother with food choices and to potentially help provide some other options for her to improve her oral intake. All within the confines of her difficulty with swallowing. Status: Acute Priority: Low Code(s): D72.829 - ELEVATED WHITE BLOOD CELL COUNT, UNSPECIFIED SNOMED Code(s): 734012243 (2) Abdominal pain Status: Acute Code(s): R10.9 - UNSPECIFIED ABDOMINAL PAIN SNOMED Code(s): 87152017 (3) History of diarrhea Status: Acute Code(s): Z87.898 - PERSONAL HISTORY OF OTHER SPECIFIED CONDITIONS SNOMED Code(s): 611459120
== END 2018-12-29 15:20 | DRG 392 ==
LOC: EC 17:02 → 4SSUR 18:45 → 4MS4W 12-26 12:21 → 4SSUR 12-28 17:18
PROVIDERS: ADMIT Internal Medicine; ATTEND Internal Medicine
DX: K57.92 Diverticulitis of intestine, part unspecified, without perforation or abscess without bleeding (principal); I11.0 Hypertensive heart disease with heart failure; D89.9 Disorder involving the immune mechanism, unspecified; I80.9 Phlebitis and thrombophlebitis of unspecified site; I48.2 Chronic atrial fibrillation; I50.9 Heart failure, unspecified; I69.391 Dysphagia following cerebral infarction; I44.7 Left bundle-branch block, unspecified; K21.9 Gastro-esophageal reflux disease without esophagitis; K44.9 Diaphragmatic hernia without obstruction or gangrene; D46.9 Myelodysplastic syndrome, unspecified; E03.9 Hypothyroidism, unspecified; E78.5 Hyperlipidemia, unspecified; H35.30 Unspecified macular degeneration; I25.10 Atherosclerotic heart disease of native coronary artery without angina pectoris; I25.2 Old myocardial infarction; I49.1 Atrial premature depolarization; K58.0 Irritable bowel syndrome with diarrhea; M19.90 Unspecified osteoarthritis, unspecified site; R79.1 Abnormal coagulation profile; R77.9 Abnormality of plasma protein, unspecified; E66.9 Obesity, unspecified; Z68.25 Body mass index [BMI] 25.0-25.9, adult; Z79.890 Hormone replacement therapy; Z79.01 Long term (current) use of anticoagulants; Z79.899 Other long term (current) drug therapy; Z88.2 Allergy status to sulfonamides; Z88.7 Allergy status to serum and vaccine; Z88.8 Allergy status to other drugs, medicaments and biological substances; Z91.030 Bee allergy status; Z91.041 Radiographic dye allergy status; Z88.5 Allergy status to narcotic agent; Z91.010 Allergy to peanuts; Z86.711 Personal history of pulmonary embolism; Z86.718 Personal history of other venous thrombosis and embolism; Z87.11 Personal history of peptic ulcer disease; Z90.710 Acquired absence of both cervix and uterus; Z92.21 Personal history of antineoplastic chemotherapy; Z95.828 Presence of other vascular implants and grafts; Z86.79 Personal history of other diseases of the circulatory system; Z87.01 Personal history of pneumonia (recurrent); Z86.010 Personal history of colon polyps; Z90.49 Acquired absence of other specified parts of digestive tract; Z82.49 Family history of ischemic heart disease and other diseases of the circulatory system; Z82.5 Family history of asthma and other chronic lower respiratory diseases; Z80.9 Family history of malignant neoplasm, unspecified
CPT/HCPCS: 36415; 71046; 74019; 74176; 80048; 80053; 81001; 83605; 83735; 84484; 85025; 85610; 87040; 87086; 87324; 93005; 94760; 99285

== ENCOUNTER 2019-03-26 13:59 | Emergency (ER) | payer MEDICARE, BC ==
[2019-03-26 14:11] VITALS: TEMP 98.1
--- NOTE | 2019-03-26 14:47 | ED ---
Syncope HPI - General Chief Complaint: Syncope Stated Complaint: Syncope Time Seen by Provider: 03/26/19 14:16 Source: patient Mode of arrival: wheelchair Limitations: no limitations - History of Present Illness Initial Comments: Patient is a 84-year-old female presenting to emergency Department with complaints of a syncopal episode earlier today. Patient is here with her son. Patient states she was visiting her at a rehab facility and she needed to have a bowel movement. Patient states she had 2 hard bowel movements and then stood up to wash her hands, the next thing she knew she was on the ground. Patient states she was bleeding from a cut on the back of her head. Patient admits to being on Coumadin for A. fib and history of multiple blood clots in her legs. Patient also admits to some left shoulder soreness. Patient denies any recent fevers, chills, dizziness, abdominal pain. Patient admits to history of a stroke approximately 4 months ago. She does have some residual right-sided weakness and mild right-sided facial droop. Upon arrival, patient is bleeding mildly from a wound on the back of her head. Vital signs are stable. Patient is resting comfortably on the bed. - Related Data Home Medications Medication Instructions Recorded Confirmed amLODIPine BESYLATE [Amlodipine 5 mg PO DAILY 09/30/15 12/25/18 Besylate] Potassium Chloride [Klor-Con 10] 10 meq PO DAILY 07/20/16 12/25/18 Levothyroxine Sodium [Synthroid] 100 mcg PO DAILY 09/10/16 12/25/18 Metoprolol Succinate [Toprol XL] 100 mg PO DAILY 09/10/16 12/25/18 Warfarin [Coumadin] 4 mg PO TUTHSA 08/17/18 12/25/18 Warfarin [Coumadin] 6 mg PO MOWEFR 08/17/18 12/25/18 Atorvastatin [Lipitor] 20 mg PO HS 12/25/18 12/25/18 Bisacodyl [Dulcolax] 10 mg RECTAL DAILY PRN 12/25/18 12/25/18 Furosemide [Lasix] 20 mg PO BID 12/25/18 12/25/18 Loperamide [Imodium] 2 mg PO TID 12/25/18 12/25/18 Magnesium Hydroxide [Milk of 2,400 mg PO DAILY PRN 12/25/18 12/25/18 Magnesia] Melatonin 1 mg PO HS 12/25/18 12/25/18 Menthol-Zinc Oxide Oint 1 applic TOPICAL BID 12/25/18 12/25/18 [Calmoseptine Oint] Na Phos,M-B/Na Phos,Di-Ba [Fleet 133 ml RECTAL ONCE PRN 12/25/18 12/25/18 Adult] Previous Rx's Medication Instructions Recorded Amoxic-Pot Clav 875-125Mg 1 tab PO Q12HR #20 tablet 12/29/18 [Augmentin 875-125] Allergies Allergy/AdvReac Type Severity Reaction Status Date / Time black pepper Allergy Severe Anaphylaxis Verified 12/25/18 17:21 Influenza Virus Vaccines Allergy Severe Unknown Verified 12/25/18 17:21 peanut Allergy Severe Anaphylaxis Verified 12/25/18 17:21 atropine [From ] Allergy Unknown Verified 12/25/18 17:21 chocolate flavor Allergy Itching Verified 12/25/18 17:21 hyoscyamine [From ] Allergy Unknown Verified 12/25/18 17:21 Iodinated Contrast- Oral and Allergy Swelling Verified 12/25/18 17:21 IV Dye [Iodinated Contrast Media - IV Dye] phenobarbital [From ] Allergy Unknown Verified 12/25/18 17:21 propoxyphene [From [place]] Allergy Unknown Verified 12/25/18 17:21 scopolamine [From ] Allergy Unknown Verified 12/25/18 17:21 Sulfa (Sulfonamide Allergy Rash/Hives Verified 12/25/18 17:21 Antibiotics) venom-honey bee Allergy Unknown Verified 12/25/18 17:21 [bee venom (honey bee)] acetaminophen [From [place]] AdvReac Hallucinati Verified 12/25/18 17:21 ons belladonna alkaloids AdvReac Unknown Verified 12/25/18 17:21 hydrocodone [From [place]] AdvReac Hallucinati Verified 12/25/18 17:21 ons simvastatin [From Zocor] AdvReac WEAKNESS Verified 12/25/18 17:21 SMELT Allergy Itching Uncoded 12/25/18 17:21 Review of Systems ROS Statement: Those systems with pertinent positive or pertinent negative responses have been documented in the HPI. ROS Other: All systems not noted in ROS Statement are negative. Past Medical History Past Medical History: Atrial Fibrillation, Blood Disorder, Coronary Artery Disease (CAD), Chest Pain / Angina, Heart Failure, CVA/TIA, Deep Vein Thrombosis (DVT), Eye Disorder, GERD/Reflux, Hyperlipidemia, Hypertension, Myocardial Infarction (NE), Osteoarthritis (OA), Pneumonia, Syncope, Thyroid Disorder, Vascular Disorder Additional Past Medical History / Comment(s): Pt recently diagnosed with afib,. 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 DVTs multiple in R leg and once in L arm, PEs-showering pulmonary embolisms bilateral lungs, chronic thrombophlebitis, coronary blockages, leaky cardiac valves, AAA thoracic and abdominal both stented, duodenal ulcer, hiatal hernia, diverticular dx, colitis, IBS, H. Pylori, frequent diarrhea, chronic anemia, bronchitis, pneumonias, macular degeneration bilaterally, syncopal episodes. Last Myocardial Infarction Date:: UNKNOWN History of Any Multi-Drug Resistant Organisms: None Reported Past Surgical History: Appendectomy, Cholecystectomy, Heart Catheterization, Hysterectomy Additional Past Surgical History / Comment(s): 09/2015 thoracic aortic aneurysm stent, 07/2017 thoracic aortic aneurysm stent leaking and another stent placed as well as abdominal aortic aneurysm stented, cardiac caths, green field filter, bone marrow aspiration, exploratory lap for adhesions, EGD/colonoscopies with benign polypectomy, hemorrhoidectomy, R leg vein stripping. Past Anesthesia/Blood Transfusion Reactions: Blood Transfusion Reaction Additional Past Anesthesia/Blood Transfusion Reaction / Comment(s): Heart failure/fluid overload Past Psychological History: No Psychological Hx Reported Smoking Status: Never smoker Past Alcohol Use History: None Reported Past Drug Use History: None Reported - Past Family History Father Family Medical History: Coronary Artery Disease (CAD), Myocardial Infarction (NE) Mother Family Medical History: COPD, Coronary Artery Disease (CAD), Deep Vein Thrombosis (DVT) Brother(s) Family Medical History: Coronary Artery Disease (CAD), Myocardial Infarction (NE) Sister(s) Family Medical History: Cancer Additional Family Medical History / Comment(s): Uterine General Exam - General Exam Comments Initial Comments: GENERAL: Well-appearing, well-nourished and in no acute distress. HEAD: Atraumatic, normocephalic. Patient has small laceration to the back of the head, left-sided. Bleeding is controlled at this time. EYES: Pupils equal round and reactive to light, extraocular movements intact, sclera anicteric, conjunctiva are normal. ENT: TMs normal, nares patent, oropharynx clear without exudates. Moist mucous membranes. NECK: Normal range of motion, supple without lymphadenopathy or JVD. LUNGS: Breath sounds clear to auscultation bilaterally and equal. No wheezes rales or rhonchi. HEART: Regular rate and rhythm without murmurs, rubs or gallops. ABDOMEN: Soft, nontender, normoactive bowel sounds. No guarding, no rebound. No masses appreciated. : Deferred EXTREMITIES: Normal range of motion, no pitting or edema. No clubbing or cyanosis. NEUROLOGICAL: Cranial nerves II through XII grossly intact. Normal speech, normal gait. Mild right-sided facial droop, residual from recent stroke. PSYCH: Normal mood, normal affect. SKIN: Warm, Dry, normal turgor, no rashes or lesions noted. Limitations: no limitations Neurological exam: Present: alert, oriented X3, other (Strength in upper and lower extremities is equal bilateral.) Course Vital Signs 03/26/19 03/26/19 03/26/19 14:06 14:59 16:52 Temperature 98.1 F Pulse Rate 75 67 78 Respiratory 18 16 18 Rate Blood Pressure 153/67 167/92 184/79 O2 Sat by Pulse 97 100 99 Oximetry Procedures - Laceration Laceration #1 Consent Obtained: verbal consent Indication: laceration Site: scalp (Posterior, left-sided) Size (cm): 1 Description: linear Depth: simple, single layer Anesthetic Used: lidocaine 1% Anesthesia Technique: local infiltration Amount (mls): 2 Pre-repair: irrigated extensively Type of Sutures: nylon Size of Sutures: 4-0 Number of Sutures: 3 Technique: simple, interrupted Patient Tolerated Procedure: well Medical Decision Making - Medical Decision Making Patient is a 84-year-old female presenting to the ER after a syncopal episode. Patient was visiting her at a rehab facility and then proceeded to have 2 hard bowel movements. Patient states she stood up afterwards and the next thing she remembers is being on the ground. Patient states she was able to get up on her own and call the nurse over to her. Patient admits to bleeding from a wound on the back of her head. Patient admits to being on Coumadin for A. fib and multiple blood clots in the lower extremities. Patient also admits to having a recent stroke 4 months ago. Patient has residual right-sided weakness and mild right-sided facial droop. Upon arrival patient is A&O 3. Patient's exam is unremarkable except for laceration on the back of the head and residual mild right-sided facial droop. No acute neuro symptoms. CBC, CMP, UA are all within normal limits. CT of the brain shows an old left internal capsular lacunar infart, cerebral atrophy, no acute hemorrhage. Patient's wound was cleaned and 3 sutures were placed. Patient sat up on the side of the bed and experienced no dizziness or lightheadedness. Patient feels well to go home. Case discussed with Dr. Loaiza and he is in agreement with this plan. Bleeding is controlled at time of discharge. Return parameters were discussed with the patient and her son and they both verbalize understanding. Vital signs remained stable during stay. - Lab Data Result diagrams: 03/26/19 15:00 03/26/19 15:00 Lab Results 03/26/19 03/26/19 03/26/19 Range/Units 15:00 15:00 15:50 WBC 8.8 (3.8-10.6) k/uL RBC 3.58 L (3.80-5.40) m/uL Hgb 10.8 L (11.4-16.0) gm/dL Hct 33.8 L (34.0-46.0) % MCV 94.4 (80.0-100.0) fL MCH 30.1 (25.0-35.0) pg MCHC 31.9 (31.0-37.0) g/dL RDW 14.5 (11.5-15.5) % Plt Count 215 (150-450) k/uL Neutrophils % 78 % Lymphocytes % 10 % Monocytes % 8 % Eosinophils % 2 % Basophils % 0 % Neutrophils # 6.8 (1.3-7.7) k/uL Lymphocytes # 0.9 L (1.0-4.8) k/uL Monocytes # 0.7 (0-1.0) k/uL Eosinophils # 0.1 (0-0.7) k/uL Basophils # 0.0 (0-0.2) k/uL Sodium 139 (137-145) mmol/L Potassium 3.8 (3.5-5.1) mmol/L Chloride 100 (98-107) mmol/L Carbon Dioxide 29 (22-30) mmol/L Anion Gap 10 mmol/L BUN 30 H (7-17) mg/dL Creatinine 0.87 (0.52-1.04) mg/dL Est GFR (CKD-EPI)AfAm 71 (>60 ml/min/1.73 sqM) Est GFR (CKD-EPI)NonAf 62 (>60 ml/min/1.73 sqM) Glucose 119 H (74-99) mg/dL Calcium 10.5 H (8.4-10.2) mg/dL Total Bilirubin 0.4 (0.2-1.3) mg/dL AST 26 (14-36) U/L ALT 6 L (9-52) U/L Alkaline Phosphatase 89 (38-126) U/L Total Protein 7.8 (6.3-8.2) g/dL Albumin 4.2 (3.5-5.0) g/dL Urine Color Yellow Urine Appearance Clear (Clear) Urine pH 5.5 (5.0-8.0) Ur Specific [place] 1.012 (1.001-1.035) Urine Protein Trace H (Negative) Urine Glucose (UA) Negative (Negative) Urine Ketones Negative (Negative) Urine Blood Negative (Negative) Urine Nitrite Negative (Negative) Urine Bilirubin Negative (Negative) Urine Urobilinogen <2.0 (<2.0) mg/dL Ur Leukocyte Esterase Negative (Negative) Disposition Clinical Impression: Vasovagal syncope, Scalp laceration Disposition: HOME SELF-CARE Condition: Stable Instructions (If sedation given, give patient instructions): Care For Your Stitches (ED), Syncope (DC) Additional Instructions: Please return to the Emergency Department if symptoms worsen or any other concerns. Sutures need to be removed in 10-12 days. Is patient prescribed a controlled substance at d/c from ED?: No Referrals: Fabian Kay MD [Primary Care Provider] - 1-2 days
[2019-03-26 15:13] LABS: Basophils % (A) 0 %; Eosinophils # (A) 0.1 k/uL (0-0.7); Eosinophils % (A) 2 %; HCT 33.8 % (34.0-46.0); HGB 10.8 gm/dL (11.4-16.0); Lymphocytes # (A) 0.9 k/uL (1.0-4.8); Lymphocytes % (A) 10 %; MCH 30.1 pg (25.0-35.0); MCHC 31.9 g/dL (31.0-37.0); MCV 94.4 fL (80.0-100.0); Mean Platelet Volume 8.6; Monocytes # (A) 0.7 k/uL (0-1.0); Monocytes % (A) 8 %; Neutrophils # (A) 6.8 k/uL (1.3-7.7); Neutrophils % (A) 78 %; Platelet Count 215 k/uL (150-450); RBC 3.58 m/uL (3.80-5.40); RDW 14.5 % (11.5-15.5); WBC 8.8 k/uL (3.8-10.6)
[2019-03-26 15:49] LABS: Albumin 4.2 g/dL (3.5-5.0); Calcium 10.5 mg/dL (8.4-10.2); Potassium 3.8 mmol/L (3.5-5.1); Total Bilirubin 0.4 mg/dL (0.2-1.3); Total Protein 7.8 g/dL (6.3-8.2)
[2019-03-26 15:59] LABS: Appearance,Urine Clear (Clear); Bilirubin,Urine Negative (Negative); Blood,Urine Negative (Negative); Color,Urine Yellow; Glucose,Urine (UA) Negative (Negative); Ketones,Urine Negative (Negative); Leukocyte Esterase,Urine Negative (Negative); Nitrite,Urine Negative (Negative); PH, Urine 5.5 (5.0-8.0); Protein,Urine Trace (Negative); Specific Gravity,Urine 1.012 (1.001-1.035); Urobilinogen,Urine <2.0 mg/dL (<2.0)
--- NOTE | 2019-03-26 16:15 | CT ---
EXAMINATION TYPE: CT brain wo con DATE OF EXAM: 03/26/2019 COMPARISON: 12/19/2018 HISTORY: fall. laceration/contusion to back left side of head. CT DLP: 1091.4 mGycm Automated exposure control for dose reduction was used. FINDINGS: There is some cerebral cortical atrophy. There is no mass effect nor midline shift. There is no sign of intracranial hemorrhage. There is 1.5 cm hypodense area in the central left internal capsule. The calvarium is intact. There is soft tissue air bubbles in the left parietal scalp region consistent wi th laceration. There is left parietal scalp soft tissue swelling. 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 CEREBRAL AT ROPHY. NO HEMORRHAGE.
[2019-03-26] MEDS ORDERED: LIDOCAINE 1% INJ 10MG/ML (20 ML MDV) SQ ONE (16:32)
[2019-03-26 16:53] VITALS: BP 184/79; PULSE 78; RESP 18
== END 2019-03-26 17:38 | disposition home or self-care (01) ==
LOC: EC 13:59
DX: S01.01XA Laceration without foreign body of scalp, initial encounter (principal); R55 Syncope and collapse; R29.810 Facial weakness; R53.1 Weakness; I48.91 Unspecified atrial fibrillation; I25.10 Atherosclerotic heart disease of native coronary artery without angina pectoris; I11.0 Hypertensive heart disease with heart failure; I50.9 Heart failure, unspecified; E78.5 Hyperlipidemia, unspecified; I25.2 Old myocardial infarction; E07.9 Disorder of thyroid, unspecified; K58.9 Irritable bowel syndrome, unspecified; Z86.73 Personal history of transient ischemic attack (TIA), and cerebral infarction without residual deficits; Z86.718 Personal history of other venous thrombosis and embolism; Z86.711 Personal history of pulmonary embolism; Z87.19 Personal history of other diseases of the digestive system; Z85.79 Personal history of other malignant neoplasms of lymphoid, hematopoietic and related tissues; Z90.49 Acquired absence of other specified parts of digestive tract; Z98.890 Other specified postprocedural states; Z79.01 Long term (current) use of anticoagulants; Z79.890 Hormone replacement therapy; Z79.899 Other long term (current) drug therapy; Z88.2 Allergy status to sulfonamides; Z88.5 Allergy status to narcotic agent; Z88.7 Allergy status to serum and vaccine; Z88.8 Allergy status to other drugs, medicaments and biological substances; Z91.010 Allergy to peanuts; Z91.013 Allergy to seafood; Z91.018 Allergy to other foods; Z91.041 Radiographic dye allergy status; W18.39XA Other fall on same level, initial encounter; Y92.129 Unspecified place in nursing home as the place of occurrence of the external cause
CPT/HCPCS: 36415; 80053; 85025; 81003; 70450; 99284; 12001; J2001

== ENCOUNTER 2019-09-28 10:55 | Inpatient (IN) | payer MEDICARE, BC ==
[2019-09-28] MEDS ORDERED: FUROSEMIDE 10 MG/ML 4 ML VIAL IV STA (11:31)
[2019-09-28 12:15] LABS: Basophils # (A) 0.1 k/uL (0-0.2); Basophils % (A) 2 %; Eosinophils # (A) 0.1 k/uL (0-0.7); Eosinophils % (A) 2 %; HGB 12.7 gm/dL (11.4-16.0); Lymphocytes # (A) 1.1 k/uL (1.0-4.8); Lymphocytes % (A) 18 %; MCH 30.8 pg (25.0-35.0); MCHC 32.4 g/dL (31.0-37.0); MCV 94.9 fL (80.0-100.0); Mean Platelet Volume 8.4; Monocytes # (A) 0.5 k/uL (0-1.0); Monocytes % (A) 7 %; Neutrophils # (A) 4.2 k/uL (1.3-7.7); Neutrophils % (A) 68 %; Platelet Count 235 k/uL (150-450); RBC 4.11 m/uL (3.80-5.40); RDW 13.1 % (11.5-15.5); WBC 6.2 k/uL (3.8-10.6)
--- NOTE | 2019-09-28 12:22 | XR ---
EXAMINATION TYPE: XR chest 2V DATE OF EXAM: 09/28/2019 COMPARISON: 12/25/2018 HISTORY: Shortness of breath TECHNIQUE: Frontal and lateral views of the chest are obtained. FINDINGS: Scattered senescent parenchymal changes noted. Hyperinflation compatible with COPD. No evidence for infiltrate. No evidence for atelectasis. Heart size is stable. Thoracic aortic stent remains in place. No evidence for hilar prominence. Degenerative changes dorsal spine. IMPRESSION: 1. No evidence for acute pulmonary disease.
[2019-09-28 12:34] LABS: Albumin 4.2 g/dL (3.5-5.0); Calcium 10.8 mg/dL (8.4-10.2); Potassium 4.5 mmol/L (3.5-5.1); Total Bilirubin 0.6 mg/dL (0.2-1.3); Total Protein 7.7 g/dL (6.3-8.2)
[2019-09-28 12:42] LABS: Prothrombin Time 10.4 sec (9.0-12.0)
[2019-09-28 12:51] LABS: Appearance,Urine Cloudy (Clear); Bilirubin,Urine Negative (Negative); Blood,Urine Negative (Negative); Color,Urine Light Yellow; Glucose,Urine (UA) Negative (Negative); Ketones,Urine Negative (Negative); Leukocyte Esterase,Urine Negative (Negative); Mucus,Urine Rare /hpf; Nitrite,Urine Negative (Negative); Protein,Urine Negative (Negative); Specific Gravity,Urine 1.008 (1.001-1.035); Squamous Epithelial Cell,Urine 7 /hpf (0-4); Urobilinogen,Urine <2.0 mg/dL (<2.0); WBC,Urine <1 /hpf (0-5)
[2019-09-28 12:53] LABS: D-Dimer 4.84 mg/L FEU (<0.60)
[2019-09-28] MEDS ORDERED: diphenhydrAMINE 50 MG/ML 1 ML VIAL IVP STA (13:24)
[2019-09-28] MEDS ORDERED: FAMOTIDINE 20 MG/2 ML VIAL IV STA (13:24)
[2019-09-28] MEDS ORDERED: methylPREDNISolone SOD SUCCI 125 MG/2 ML VIAL IV STA (13:24)
--- NOTE | 2019-09-28 14:38 | CT ---
EXAMINATION TYPE: CT chest angio for PE DATE OF EXAM: 09/28/2019 COMPARISON: 08/17/2018 HISTORY: PE suspected, positive D-dimer, dyspnea CT DLP: 329.5 mGycm Automated exposure control for dose reduction was used. CONTRAST: CT Chest for pulmonary embolism performed with with IV Contrast, patient injected with 100 mL of Isov ue 370. FINDINGS: LUNGS: The lungs are grossly clear, there is no concerning parenchymal mass or nodule identified. T here is no pleural effusion or pneumothorax seen. The tracheobronchial tree is patent. Subsegmental basilar consolidation most likely the basis of atelectasis. MEDIASTINUM: Large thoracic aortic aneurysm with stent placement. Does result in some compression of the posterior margin of the left upper lobe pulmonary arterial branches. [place] sac measures approxim ately 7.5 cm and is stable from the prior exam a maximal dimension. Stent is seen extending the upper abdomen. Descending thoracic aorta remains aneurysmally dilated measuring a maximal dimension of 5.2 cm and previously measured a maximal dimension of 5.2 cm. The heart is enlarged. Heart is enlarged a nd there is coronary artery calcification. Hyperdensity within the aneurysm sac again noted. OTHER: 2.5 cm right adrenal mass measuring 14 Hounsfield units which is indeterminate. Varices noted in the left upper quadrant correlate for hepatocellular disease. Hypertrophic and degenerative lópez es spine. Vertebral body hemangioma noted. Stable 5 mm hepatic dome lesion unchanged from prior exam 2 small to characterize.. IMPRESSION: 1. Large barrow thoracic aortic aneurysm with stent placement the size of the barrow aortic aneurysm is unchanged from the prior exam. Persistent evidence of hyperdensity within the aneurysm sac as prev iously noted suggestive of a component of endoleak. 2. No diagnostic evidence of pulmonary embolism. 3 abdominal varices. 3. There is an indeterminate 2.5 cm right adrenal mass. This is similar in appearance to the prior ex am.
[2019-09-28] MEDS ORDERED: NITROGLYCERIN SL TABS 0.4 MG TAB SUBLINGUAL PRN (15:06)
--- NOTE | 2019-09-28 15:47 | ED ---
Recheck HPI - General Chief Complaint: Recheck/Abnormal Lab/Rx Stated Complaint: ABN labs Time Seen by Provider: 09/28/19 11:20 Source: patient Mode of arrival: wheelchair Limitations: physical limitation - History of Present Illness Initial Comments: 84-year-old female with extensive past medical history including aortic graft, recurrent pulmonary embolisms and deep venous thrombosis despite anticoagulation on Coumadin with current intake regulation and eliquis as well as [place] filter patient is unsure if this is still in place resenting for evaluation of increasing shortness of breath 1 week elevation of BNP patient states that she had outpatient labs drawn for shortness of breath with 9 pound weight gain. She states she elevated BNP was sent to the emergency department for evaluation of possible CHF exacerbation--patient states at times she feels lightheaded she denies any chest pain, pain in the back neck or headaches patient denies any nausea shoulder pain. patietn denies fever, cough or sputum production. Patient denies diarrhea, melena, hematochezia. Admits to increasing SOB with laying flat amd mild b/l leg swelling. Denies calf pain or unilateral leg swelling. - Related Data Home Medications Medication Instructions Recorded Confirmed amLODIPine BESYLATE [Amlodipine 5 mg PO DAILY 09/30/15 12/25/18 Besylate] Potassium Chloride [Klor-Con 10] 10 meq PO DAILY 07/20/16 12/25/18 Levothyroxine Sodium [Synthroid] 100 mcg PO DAILY 09/10/16 12/25/18 Metoprolol Succinate [Toprol XL] 100 mg PO DAILY 09/10/16 12/25/18 Warfarin [Coumadin] 4 mg PO TUTHSA 08/17/18 12/25/18 Warfarin [Coumadin] 6 mg PO MOWEFR 08/17/18 12/25/18 Atorvastatin [Lipitor] 20 mg PO HS 12/25/18 12/25/18 Bisacodyl [Dulcolax] 10 mg RECTAL DAILY PRN 12/25/18 12/25/18 Furosemide [Lasix] 20 mg PO BID 12/25/18 12/25/18 Loperamide [Imodium] 2 mg PO TID 12/25/18 12/25/18 Magnesium Hydroxide [Milk of 2,400 mg PO DAILY PRN 12/25/18 12/25/18 Magnesia] Melatonin 1 mg PO HS 12/25/18 12/25/18 Menthol-Zinc Oxide Oint 1 applic TOPICAL BID 12/25/18 12/25/18 [Calmoseptine Oint] Na Phos,M-B/Na Phos,Di-Ba [Fleet 133 ml RECTAL ONCE PRN 12/25/18 12/25/18 Adult] Previous Rx's Medication Instructions Recorded Amoxic-Pot Clav 875-125Mg 1 tab PO Q12HR #20 tablet 12/29/18 [Augmentin 875-125] Allergies Allergy/AdvReac Type Severity Reaction Status Date / Time black pepper Allergy Severe Anaphylaxis Verified 12/25/18 17:21 Influenza Virus Vaccines Allergy Severe Unknown Verified 12/25/18 17:21 peanut Allergy Severe Anaphylaxis Verified 12/25/18 17:21 atropine [From ] Allergy Unknown Verified 12/25/18 17:21 chocolate flavor Allergy Itching Verified 12/25/18 17:21 hyoscyamine [From ] Allergy Unknown Verified 12/25/18 17:21 Iodinated Contrast Media Allergy Swelling Verified 12/25/18 17:21 [Iodinated Contrast Media - IV Dye] phenobarbital [From ] Allergy Unknown Verified 12/25/18 17:21 propoxyphene [From Darvon] Allergy Unknown Verified 12/25/18 17:21 scopolamine [From ] Allergy Unknown Verified 12/25/18 17:21 Sulfa (Sulfonamide Allergy Rash/Hives Verified 12/25/18 17:21 Antibiotics) venom-honey bee Allergy Unknown Verified 12/25/18 17:21 [bee venom (honey bee)] acetaminophen [From [place]] AdvReac Hallucinati Verified 12/25/18 17:21 ons belladonna alkaloids AdvReac Unknown Verified 12/25/18 17:21 hydrocodone [From [place]] AdvReac Hallucinati Verified 12/25/18 17:21 ons simvastatin [From Zocor] AdvReac WEAKNESS Verified 12/25/18 17:21 SMELT Allergy Itching Uncoded 12/25/18 17:21 Review of Systems ROS Statement: Those systems with pertinent positive or pertinent negative responses have been documented in the HPI. ROS Other: All systems not noted in ROS Statement are negative. Past Medical History Past Medical History: Atrial Fibrillation, Blood Disorder, Coronary Artery Dise ase (CAD), Chest Pain / Angina, Heart Failure, CVA/TIA, Deep Vein Thrombosis (DVT), Eye Disorder, GERD/Reflux, Hyperlipidemia, Hypertension, Myocardial Infarction ([place]), Osteoarthritis (OA), Pneumonia, Syncope, Thyroid Disorder, Vascular Disorder Additional Past Medical History / Comment(s): Pt recently diagnosed with afib,. 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 DVTs multiple in R leg and once in L arm, PEs-showering pulmonary embolisms bilateral lungs, chronic t hrombophlebitis, coronary blockages, leaky cardiac valves, AAA thoracic and abdominal both stented, duodenal ulcer, hiatal hernia, diverticular dx, colitis, IBS, H. Pylori, frequent diarrhea, chronic anemia, bronchitis, pneumonias, macular degeneration bilaterally, syncopal episodes. Last Myocardial Infarction Date:: UNKNOWN History of Any Multi-Drug Resistant Organisms: None Reported Past Surgical History: Appendectomy, Cholecystectomy, Heart Catheterization, Hysterectomy Additional Past Surgical History / Comment(s): 09/2015 thoracic aortic aneurysm stent, 07/2017 thoracic aortic aneurysm stent leaking and another stent placed as well as abdominal aortic aneurysm stented, cardiac caths, green field filter, bone marrow aspiration, exploratory lap for adhesions, EGD/colonoscopies with benign polypectomy, hemorrhoidectomy, R leg vein stripping. Past Anesthesia/Blood Transfusion Reactions: Blood Transfusion Reaction Additional Past Anesthesia/Blood Transfusion Reaction / Comment(s): Heart failure/fluid overload Past Psychological History: No Psychological Hx Reported Smoking Status: Never smoker Past Alcohol Use History: None Reported Past Drug Use History: None Reported - Past Family History Father Family Medical History: Coronary Artery Disease (CAD), Myocardial Infarction ( [place]) Mother Family Medical History: COPD, Coronary Artery Disease (CAD), Deep Vein Thrombosis (DVT) Brother(s) Family Medical History: Coronary Artery Disease (CAD), Myocardial Infarction ([place]) Sister(s) Family Medical History: Cancer Additional Family Medical History / Comment(s): Uterine General Exam - General Exam Comments Initial Comments: General: The patient is awake and alert, in no distress Eye: Pupils are equal, round and reactive to light, extra-ocular movements are intact. No nystagmus. There is normal conjunctiva bilaterally. No signs of icterus. Ears, nose, mouth and throat: There are moist mucous membranes and no oral lesions. Neck: The neck is supple, there is no tenderness or JVD. Cardiovascular: There is a regular rate and rhythm. No murmur, rub or gallop is appreciated. Respiratory: Lungs are clear to auscultation, respirations are non-labored, hermelinda ath sounds are equal. No wheezes, stridor, rales, or rhonchi. Gastrointestinal: Soft, non-distended, non-tender abdomen without masses or organomegaly noted. There is no rebound or guarding present. Musculoskeletal: Normal ROM, no tenderness. Strength 5/5. Sensation intact. Radial and DP pulses equal bilaterally 2+. Neurological: A&O x 3. CN II-XII intact grossly, There are no obvious motor or sensory deficits. Coordination appears grossly intact. Speech is normal. Skin: Skin is warm and dry and no rashes or lesions are noted. Mild edema of the LE b/l non pitting. Psychiatric: Cooperative, appropriate mood & affect, normal judgment. Limitations: physical limitation Course Vital Signs 09/28/19 09/28/19 09/28/19 11:08 11:10 12:06 Temperature 97.8 F Pulse Rate 70 Respiratory 19 20 16 Rate Blood Pressure 146/78 O2 Sat by Pulse 98 Oximetry 09/28/19 09/28/19 12:10 12:30 Temperature Pulse Rate 76 Respiratory Rate Blood Pressure 150/70 150/70 O2 Sat by Pulse Oximetry Medical Decision Making - Medical Decision Making 84-year-old female presenting today for chief complaint of shortness of breath increasing times one week, weight gain increased BNP. Outpatient BMP and BNP today were compared with significant improvement patient did double her Lasix th e past 2 days. Patient denies any chest pain initial troponin negative. EKG appears similar to that the most recent previous. Patient CT and general is negative for acute dissection there is persistent endo leak. No evidence of PE. Patient will be admitted for echo to r/o valvular disease. Discussed case with attending Dr. Schultz who reviewed EKG and imaging studies he is agreeable to admission and care plan at this time. Ventricular rate 59 bpm, NV interval 224 ms, QRS confucianism 166 ms, QT/QTc 460/55. This is sinus bradycardia with noted first-degree AV block. Left axis with left bundle-branch block. EKG was compared with that of 12/25/2017 with no significant change. - Lab Data Result diagrams: 09/28/19 11:58 09/28/19 11:58 Lab Results 09/28/19 09/28/19 09/28/19 Range/Units 11:58 11:58 11:58 WBC 6.2 (3.8-10.6) k/uL RBC 4.11 (3.80-5.40) m/uL Hgb 12.7 (11.4-16.0) gm/dL Hct 39.0 (34.0-46.0) % MCV 94.9 (80.0-100.0) fL MCH 30.8 (25.0-35.0) pg MCHC 32.4 (31.0-37.0) g/dL RDW 13.1 (11.5-15.5) % Plt Count 235 (150-450) k/uL Neutrophils % 68 % Lymphocytes % 18 % Monocytes % 7 % Eosinophils % 2 % Basophils % 2 % Neutrophils # 4.2 (1.3-7.7) k/uL Lymphocytes # 1.1 (1.0-4.8) k/uL Monocytes # 0.5 (0-1.0) k/uL Eosinophils # 0.1 (0-0.7) k/uL Basophils # 0.1 (0-0.2) k/uL PT (9.0-12.0) sec INR (<1.2) APTT (22.0-30.0) sec D-Dimer (<0.60) mg/L FEU Sodium 139 (137-145) mmol/L Potassium 4.5 (3.5-5.1) mmol/L Chloride 103 (98-107) mmol/L Carbon Dioxide 27 (22-30) mmol/L Anion Gap 9 mmol/L BUN 40 H (7-17) mg/dL Creatinine 1.00 (0.52-1.04) mg/dL Est GFR (CKD-EPI)AfAm 60 (>60 ml/min/1.73 sqM) Est GFR (CKD-EPI)NonAf 52 (>60 ml/min/1.73 sqM) Glucose 98 (74-99) mg/dL Plasma Lactic Acid Adrian 1.4 (0.7-2.0) mmol/L Calcium 10.8 H (8.4-10.2) mg/dL Total Bilirubin 0.6 (0.2-1.3) mg/dL AST 26 (14-36) U/L ALT 15 (4-34) U/L Alkaline Phosphatase 118 (38-126) U/L Troponin I (0.000-0.034) ng/mL NT-Pro-B Natriuret Pep pg/mL Total Protein 7.7 (6.3-8.2) g/dL Albumin 4.2 (3.5-5.0) g/dL Urine Color Urine Appearance (Clear) Urine pH (5.0-8.0) Ur Specific Stevenson (1.001-1.035) Urine Protein (Negative) Urine Glucose (UA) (Negative) Urine Ketones (Negative) Urine Blood (Negative) Urine Nitrite (Negative) Urine Bilirubin (Negative) Urine Urobilinogen (<2.0) mg/dL Ur Leukocyte Esterase (Negative) Urine WBC (0-5) /hpf Ur Squamous Epith Cells (0-4) /hpf Urine Mucus (None) /hpf 09/28/19 09/28/19 09/28/19 Range/Units 11:58 11:58 11:58 WBC (3.8-10.6) k/uL RBC (3.80-5.40) m/uL Hgb (11.4-16.0) gm/dL Hct (34.0-46.0) % MCV (80.0-100.0) fL MCH (25.0-35.0) pg MCHC (31.0-37.0) g/dL RDW (11.5-15.5) % Plt Count (150-450) k/uL Neutrophils % % Lymphocytes % % Monocytes % % Eosinophils % % Basophils % % Neutrophils # (1.3-7.7) k/uL Lymphocytes # (1.0-4.8) k/uL Monocytes # (0-1.0) k/uL Eosinophils # (0-0.7) k/uL Basophils # (0-0.2) k/uL PT 10.4 (9.0-12.0) sec INR 1.0 (<1.2) APTT 21.0 L (22.0-30.0) sec D-Dimer 4.84 H (<0.60) mg/L FEU Sodium (137-145) mmol/L Potassium (3.5-5.1) mmol/L Chloride (98-107) mmol/L Carbon Dioxide (22-30) mmol/L Anion Gap mmol/L BUN (7-17) mg/dL Creatinine (0.52-1.04) mg/dL Est GFR (CKD-EPI)AfAm (>60 ml/min/1.73 sqM) Est GFR (CKD-EPI)NonAf (>60 ml/min/1.73 sqM) Glucose (74-99) mg/dL Plasma Lactic Acid Adrian (0.7-2.0) mmol/L Calcium (8.4-10.2) mg/dL Total Bilirubin (0.2-1.3) mg/dL AST (14-36) U/L ALT (4-34) U/L Alkaline Phosphatase (38-126) U/L Troponin I 0.017 (0.000-0.034) ng/mL NT-Pro-B Natriuret Pep 919 pg/mL Total Protein (6.3-8.2) g/dL Albumin (3.5-5.0) g/dL Urine Color Urine Appearance (Clear) Urine pH (5.0-8.0) Ur Specific Stevenson (1.001-1.035) Urine Protein (Negative) Urine Glucose (UA) (Negative) Urine Ketones (Negative) Urine Blood (Negative) Urine Nitrite (Negative) Urine Bilirubin (Negative) Urine Urobilinogen (<2.0) mg/dL Ur Leukocyte Esterase (Negative) Urine WBC (0-5) /hpf Ur Squamous Epith Cells (0-4) /hpf Urine Mucus (None) /hpf 09/28/19 Range/Units 12:32 WBC (3.8-10.6) k/uL RBC (3.80-5.40) m/uL Hgb (11.4-16.0) gm/dL Hct (34.0-46.0) % MCV (80.0-100.0) fL MCH (25.0-35.0) pg MCHC (31.0-37.0) g/dL RDW (11.5-15.5) % Plt Count (150-450) k/uL Neutrophils % % Lymphocytes % % Monocytes % % Eosinophils % % Basophils % % Neutrophils # (1.3-7.7) k/uL Lymphocytes # (1.0-4.8) k/uL Monocytes # (0-1.0) k/uL Eosinophils # (0-0.7) k/uL Basophils # (0-0.2) k/uL PT (9.0-12.0) sec INR (<1.2) APTT (22.0-30.0) sec D-Dimer (<0.60) mg/L FEU Sodium (137-145) mmol/L Potassium (3.5-5.1) mmol/L Chloride (98-107) mmol/L Carbon Dioxide (22-30) mmol/L Anion Gap mmol/L BUN (7-17) mg/dL Creatinine (0.52-1.04) mg/dL Est GFR (CKD-EPI)AfAm (>60 ml/min/1.73 sqM) Est GFR (CKD-EPI)NonAf (>60 ml/min/1.73 sqM) Glucose (74-99) mg/dL Plasma Lactic Acid Adrian (0.7-2.0) mmol/L Calcium (8.4-10.2) mg/dL Total Bilirubin (0.2-1.3) mg/dL AST (14-36) U/L ALT (4-34) U/L Alkaline Phosphatase (38-126) U/L Troponin I (0.000-0.034) ng/mL NT-Pro-B Natriuret Pep pg/mL Total Protein (6.3-8.2) g/dL Albumin (3.5-5.0) g/dL Urine Color Light Yellow Urine Appearance Cloudy H (Clear) Urine pH 5.0 (5.0-8.0) Ur Specific Stevenson 1.008 (1.001-1.035) Urine Protein Negative (Negative) Urine Glucose (UA) Negative (Negative) Urine Ketones Negative (Negative) Urine Blood Negative (Negative) Urine Nitrite Negative (Negative) Urine Bilirubin Negative (Negative) Urine Urobilinogen <2.0 (<2.0) mg/dL Ur Leukocyte Esterase Negative (Negative) Urine WBC <1 (0-5) /hpf Ur Squamous Epith Cells 7 H (0-4) /hpf Urine Mucus Rare H (None) /hpf Disposition Clinical Impression: Pre-syncope, SOB (shortness of breath) Disposition: ADMITTED IP TO THIS HOSP Condition: Stable Is patient prescribed a controlled substance at d/c from ED?: No Referrals: Fabian Kay MD [Primary Care Provider] - 1-2 days Time of Disposition: 15:47 Decision to Admit Reason: Admit from EC Decision Date: 09/28/19 Decision Time: 15:47
[2019-09-28] MEDS ORDERED: FUROSEMIDE 40 MG TAB PO SCH (23:00)
[2019-09-28] MEDS: APIXABAN 5 MG TAB PO SCH (23:13)
[2019-09-28] MEDS: MELATONIN 5 MG TABLET PO SCH (23:13)
--- NOTE | 2019-09-28 23:18 | P.HPIM ---
History of Present Illness H&P Date: 09/28/19 Chief Complaint: Shortness of breath Patient is a 84-year-old female with a known history of atrial fibrillation currently on anticoagulation with Eliquis, coronary artery disease, history of thoracic aortic aneurysm with stent placement, history of CVA with dysarthria, multiple DVTs and PEs and [place] filter placement due to chronic thromboembolism despite anticoagulation on Coumadin and currently changed to Eliquis came to ER with complaints of worsening shortness of breath for the past 1 week. Patient says that she went to her PCP yesterday where she had labs d rawn including BNP due to 9 pound weight gain recently. Patient was found to have elevated BNP and patient was sent to Hospital by her primary care physician due to possible CHF exacerbation. Patient also says that she's been having lightheaded recently denied any syncopal episode. No complaints of chest pain. No nausea vomiting or abdominal pain. No diarrhea or dysuria. No cough or sputum production. Patient did have mild increased leg swelling. Chest x-ray showed no acute cardiopulmonary process. EKG showed sinus bradycardia with heart rate 59 Elevated d-dimer. BNP 919, BUN 40 and creatinine 1.0 troponin 2 negative. No leukocytosis. CT angiogram of the chest showed large [place] thoracic aneurysm with stent placement, unchanged from prior study. No evidence of pulmonary embolism Intermediate 2.5 cm adrenal mass unchanged from prior study. Review of Systems Constitutional: Patient denies any fever or chills . No generalized weakness or weight loss. Abdomen: Patient denied nausea vomiting and diarrhea and abdominal pain. Cardiovascular: Patient denies any chest pain at patient does have shortness of breath, increased leg swelling and weight gain.. Respiratory: patient denied any cough is from production. No shortness of breath Neurologic: Patient denied any numbness or tingling headache. Musculoskeletal: Patient denies any complaints of joint swelling or deformity. Skin: Negative Psychiatric: Negative Endocrine: No heat or cold intolerance. No recent weight gain. Genitourinary: No dysuria or hematuria. All other 14 point ROS negative except the above Past Medical History Past Medical History: Atrial Fibrillation, Blood Disorder, Coronary Artery Disease (CAD), Chest Pain / Angina, Heart Failure, CVA/TIA, Deep Vein Thrombosis (DVT), Eye Disorder, GERD/Reflux, Hyperlipidemia, Hypertension, Myocardial Infarction ([place]), Osteoarthritis (OA), Pneumonia, Syncope, Thyroid Disorder, Vascular Disorder Additional Past Medical History / Comment(s): Pt recently diagnosed with afib,. 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 DVTs multiple in R leg and once in L arm, PEs-showering pulmonary embolisms bilateral lungs, chronic thrombophl ebitis, coronary blockages, leaky cardiac valves, AAA thoracic and abdominal both stented, duodenal ulcer, hiatal hernia, diverticular dx, colitis, IBS, H. Pylori, frequent diarrhea, chronic anemia, bronchitis, pneumonias, macular degeneration bilaterally, syncopal episodes. Last Myocardial Infarction Date:: UNKNOWN History of Any Multi-Drug Resistant Organisms: None Reported Past Surgical History: Appendectomy, Cholecystectomy, Heart Catheterization, Hysterectomy Additional Past Surgical History / Comment(s): 09/2015 thoracic aortic aneurysm stent, 07/2017 thoracic aortic aneurysm stent leaking and another stent placed as well as abdominal aortic aneurysm stented, cardiac caths, green field filter, bone marrow aspiration, exploratory lap for adhesions, EGD/colonoscopies with benign polypectomy, hemorrhoidectomy, R leg vein stripping. Past Anesthesia/Blood Transfusion Reactions: Blood Transfusion Reaction Additional Past Anesthesia/Blood Transfusion Reaction / Comment(s): Heart failure/fluid overload Past Psychological History: No Psychological Hx Reported Smoking Status: Never smoker Past Alcohol Use History: None Reported Past Drug Use History: None Reported - Past Family History Father Family Medical History: Coronary Artery Disease (CAD), Myocardial Infarction ([place]) Mother Family Medical History: COPD, Coronary Artery Disease (CAD), Deep Vein Thrombosis (DVT) Brother(s) Family Medical History: Coronary Artery Disease (CAD), Myocardial Infarction ([place]) Sister(s) Family Medical History: Cancer Additional Family Medical History / Comment(s): Uterine Medications and Allergies Home Medications Medication Instructions Recorded Confirmed Type amLODIPine BESYLATE [Amlodipine 5 mg PO DAILY 09/30/15 09/28/19 History Besylate] Potassium Chloride [Klor-Con 10] 10 meq PO DAILY 07/20/16 09/28/19 History Levothyroxine Sodium [Synthroid] 100 mcg PO DAILY 09/10/16 09/28/19 History Metoprolol Succinate [Toprol XL] 100 mg PO DAILY 09/10/16 09/28/19 History Furosemide [Lasix] 40 mg PO TID 12/25/18 09/28/19 History Apixaban [Eliquis] 5 mg PO BID 09/28/19 09/28/19 History Carboxymethylcellulose Sodium 1 drop BOTH EYES DAILY PRN 09/28/19 09/28/19 History [Refresh Tears] Isosorbide Mononitrate ER [Imdur] 60 mg PO DAILY 09/28/19 09/28/19 History Melatonin 5 mg PO HS 09/28/19 09/28/19 History Nitroglycerin Sl Tabs [Nitrostat] 0.4 mg SUBLINGUAL Q5M PRN 09/28/19 09/28/19 History rOPINIRole HCL [Requip] 0.25 mg PO HS 09/28/19 09/28/19 History Allergies Allergy/AdvReac Type Severity Reaction Status Date / Time black pepper Allergy Severe Anaphylaxis Verified 09/28/19 16:57 Influenza Virus Vaccines Allergy Severe Unknown Verified 09/28/19 16:57 peanut Allergy Severe Anaphylaxis Verified 09/28/19 16:57 atropine [From ] Allergy Unknown Verified 09/28/19 16:57 chocolate flavor Allergy Itching Verified 09/28/19 16:57 hyoscyamine [From ] Allergy Unknown Verified 09/28/19 16:57 Iodinated Contrast Media Allergy Swelling Verified 09/28/19 16:57 [Iodinated Contrast Media - IV Dye] phenobarbital [From ] Allergy Unknown Verified 09/28/19 16:57 propoxyphene [From Darvon] Allergy Unknown Verified 09/28/19 16:57 scopolamine [From ] Allergy Unknown Verified 09/28/19 16:57 Sulfa (Sulfonamide Allergy Rash/Hives Verified 09/28/19 16:57 Antibiotics) venom-honey bee Allergy Unknown Verified 09/28/19 16:57 [bee venom (honey bee)] acetaminophen [From [place]] AdvReac Hallucinati Verified 09/28/19 16:57 ons belladonna alkaloids AdvReac Unknown Verified 09/28/19 16:57 hydrocodone [From [place]] AdvReac Hallucinati Verified 09/28/19 16:57 ons simvastatin [From Zocor] AdvReac WEAKNESS Verified 09/28/19 16:57 SMELT Allergy Itching Uncoded 12/25/18 17:21 Physical Exam Vitals: Vital Signs Temp Pulse Resp BP Pulse Ox 09/28/19 18:00 70 18 136/66 95 09/28/19 17:00 69 20 142/75 95 09/28/19 16:00 69 22 150/78 95 09/28/19 15:30 64 16 149/62 09/28/19 15:00 65 13 168/85 95 09/28/19 14:30 23 09/28/19 14:00 70 18 166/74 96 09/28/19 13:30 62 22 149/63 09/28/19 13:00 59 L 10 L 143/71 95 09/28/19 12:30 150/70 09/28/19 12:10 76 150/70 09/28/19 12:06 16 09/28/19 11:10 20 09/28/19 11:08 97.8 F 70 19 146/78 98 Intake and Output 09/28/19 09/28/19 09/28/19 06:59 14:59 22:59 Other: Weight 72.575 kg PHYSICAL EXAMINATION: Patient is lying in the bed comfortably, no acute distress, awake alert and oriented.. HEENT: Normocephalic. Neck is supple. Pupils reactive. Nostrils clear. Oral cavity is moist. Ears reveal no drainage. Neck reveals no JVD, carotid bruits, or thyromegaly. CHEST EXAMINATION: Trachea is central. Symmetrical expansion. Baseline dementia sounds. No wheezing. Lung riggs clear to auscultation and percussion. CARDIAC: Normal S1, S2 with no gallops. No murmurs ABDOMEN: Soft. Bowel sounds normal. No organomegaly. No abdominal bruits. Extremities: Trace bilateral edema. No clubbing or cyanosis Neurologically awake, alert, oriented x3 with well-coordinated movements. Mild dysarthria. No focal deficits noted Skin: No rash or skin lesions. Psychiatric: Coperative. Nonsuicidal Musculoskeletal: No joint swelling or deformity. Normal range of motion. Results CBC & Chem 7: 09/28/19 11:58 09/28/19 11:58 Labs: Abnormal Lab Results - Last 24 Hours (Table) 09/28/19 09/28/19 09/28/19 Range/Units 11:58 11:58 12:32 APTT 21.0 L (22.0-30.0) sec D-Dimer 4.84 H (<0.60) mg/L FEU BUN 40 H (7-17) mg/dL Calcium 10.8 H (8.4-10.2) mg/dL Urine Appearance Cloudy H (Clear) Ur Squamous Epith Cells 7 H (0-4) /hpf Urine Mucus Rare H (None) /hpf Thrombosis Risk Factor Assmnt - DVT/VTE Prophylaxis DVT/VTE Prophylaxis: Pharmacologic Prophylaxis ordered Assessment and Plan Assessment: Acute on chronic CHF with mildly reduced ejection fraction 45-50% Chronic atrial fibrillation on anticoagulation with Eliquis History of coronary artery disease History of thoracic aortic aneurysm with stent placement Recurrent pulmonary embolism and DVTs. Status post [place] filter placement and on Eliquis History of CVA with residual dysarthria MDS diagnosed in 2016 and was on oral chemotherapy History of the urinalysis of Diverticular disease History of H. pylori Hypertension Hyperlipidemia Osteoarthritis Hypothyroidism History of syncope Referral vascular disease Obesity with BMI 31.2 Plan: Patient was sent to Hospital due to elevated BNP level and possible CHF exacerbation by her PCP. Patient was given IV Lasix in the ER. Patient did improve symptomatically otherwise. We will continue the home blood pressure medications including oral Lasix. Continue with telemetry monitoring. Troponin 2 negative. Follow-up BMP tomorrow. Cardiology was consulted. Further recommendations based on the clinical course. Prognosis guarded. Time with Patient: Greater than 30
[2019-09-29] MEDS: LEVOTHYROXINE 100 MCG TAB PO SCH (06:23)
[2019-09-29 08:07] LABS: Calcium 10.8 mg/dL (8.4-10.2); Potassium 4.3 mmol/L (3.5-5.1)
[2019-09-29] MEDS: ISOSORBIDE MONONITRATE ER 60 MG TAB.ER.24H PO SCH (08:33)
[2019-09-29] MEDS: POTASSIUM CHLORIDE ER 10 MEQ TAB.ER.PRT PO SCH (08:33)
[2019-09-29] MEDS: METOPROLOL SUCCINATE (ER) 100 MG TAB.ER.24H PO SCH (08:33)
[2019-09-29] MEDS: FUROSEMIDE 40 MG TAB PO SCH ×2 (08:33→20:43)
[2019-09-29] MEDS: APIXABAN 5 MG TAB PO SCH ×2 (08:33→20:43)
[2019-09-29] MEDS: ASPIRIN 325 MG TAB PO SCH ×2 (08:33→11:41)
[2019-09-29] MEDS ORDERED: amLODIPine 5 MG TAB PO SCH (09:00)
[2019-09-29] MEDS ORDERED: ARTIFICIAL TEARS-HYPROMELLOSE DROPS 15 ML BTL BOTH EYES PRN (09:00)
--- NOTE | 2019-09-29 11:49 | ECHOF ---
Referral Reason:sob MEASUREMENTS -------- HEIGHT: 152.4 cm WEIGHT: 71.7 kg BP: RVIDd: 2.9 cm (< 3.3) IVSd: 1.6 cm (0.6 - 1.1) LVIDd: 3.4 cm (3.9 - 5.3) LVPWd: 1.5 cm (0.6 - 1.1) IVSs: 1.8 cm LVIDs: 2.4 cm LVPWs: 1.9 cm LA Diam: 3.3 cm (2.7 - 3.8) LAESV Index (A-L): 30.47 ml/m Ao Diam: 2.7 cm (2.0 - 3.7) AV Cusp: 1.5 cm (1.5 - 2.6) MV EXCURSION: 12.126 mm (> 18.000) MV EF SLOPE: 68 mm/s (70 - 150) EPSS: 0.5 cm MV E Delon: 0.88 m/s MV DecT: 245 ms MV A Delon: 1.24 m/s MV E/A Ratio: 0.71 AV maxP.02 mmHg AV meanP.80 mmHg RAP: 5.00 mmHg RVSP: 35.15 mmHg TAPSE: 19.18 mm FINDINGS -------- Sinus rhythm. This was a technically good study. The left ventricular size is normal. There is moderate concentric left ventricular hypertrophy. O verall left ventricular systolic function is low-normal with, an EF between 50 - 55 %. The diastoli c filling pattern indicates impaired relaxation 23.88. Septal wall motion is delayed, and consisten t with conduction delay/bundle branch block. The right ventricle is normal in size. LA is moderately dilated 34-39 ml/m2 The right atrium is normal in size. Interatrial and interventricular septum intact. There is mild aortic valve sclerosis. Trace to mild aortic regurgitation. There is mild aortic st enosis present. The mitral valve leaflets are mildly thickened. Mild mitral annular calcification present. Mild tricuspid regurgitation present. There is mild pulmonary hypertension. The right ventricular systolic pressure, as measured by Doppler, is 35.15mmHg. The pulmonic valve was not well visualized. The aortic root size is normal. Normal inferior vena cava with normal inspiratory collapse consistent with estimated right atrial pre ssure of 5 mmHg. There is no pericardial effusion. CONCLUSIONS -------- 1. Sinus rhythm. 2. This was a technically good study. 3. The left ventricular size is normal. 4. There is moderate concentric left ventricular hypertrophy. 5. Overall left ventricular systolic function is low-normal with, an EF between 50 - 55 %. 6. The diastolic filling pattern indicates impaired relaxation 23.88.. 7. Septal wall motion is delayed, and consistent with conduction delay/bundle branch block. 8. The right ventricle is normal in size. 9. LA is moderately dilated 34-39 ml/m2 10. The right atrium is normal in size. 11. Interatrial and interventricular septum intact. 12. There is mild aortic valve sclerosis. 13. Trace to mild aortic regurgitation. 14. There is mild aortic stenosis present. 15. The mitral valve leaflets are mildly thickened. 16. Mild mitral annular calcification present. 17. Mild tricuspid regurgitation present. 18. There is mild pulmonary hypertension. 19. The right ventricular systolic pressure, as measured by Doppler, is 35.15mmHg. 20. The pulmonic valve was not well visualized. 21. The aortic root size is normal. 22. Normal inferior vena cava with normal inspiratory collapse consistent with estimated right atrial pressure of 5 mmHg. 23. There is no pericardial effusion. [employer]GER [employer]: Antonietta Alas RDCS
[2019-09-29] MEDS ORDERED: IPRATROPIUM-ALBUTEROL 3 ML NEB INHALATION PRN (14:43)
[2019-09-29] MEDS: predniSONE 20 MG TAB PO SCH (15:35)
[2019-09-29] MEDS: MELATONIN 5 MG TABLET PO SCH (20:43)
[2019-09-29] MEDS ORDERED: hydrALAZINE HCL 20 MG/ML 1 ML VIAL IVP PRN (20:53)
[2019-09-29] MEDS: amLODIPine 5 MG TAB PO SCH (21:00)
[2019-09-30] MEDS: LEVOTHYROXINE 100 MCG TAB PO SCH (06:22)
[2019-09-30] MEDS: ASPIRIN 325 MG TAB PO SCH (08:13)
[2019-09-30] MEDS: ISOSORBIDE MONONITRATE ER 60 MG TAB.ER.24H PO SCH (08:13)
[2019-09-30] MEDS: POTASSIUM CHLORIDE ER 10 MEQ TAB.ER.PRT PO SCH (08:14)
[2019-09-30] MEDS: amLODIPine 5 MG TAB PO SCH (08:14)
[2019-09-30] MEDS: FUROSEMIDE 40 MG TAB PO SCH (08:14)
[2019-09-30] MEDS: METOPROLOL SUCCINATE (ER) 100 MG TAB.ER.24H PO SCH (08:14)
[2019-09-30] MEDS: predniSONE 20 MG TAB PO SCH (08:14)
[2019-09-30] MEDS: APIXABAN 5 MG TAB PO SCH (08:14)
[2019-09-30 09:03] VITALS: BP 144/71; PULSE 85; RESP 16; TEMP 97.4
--- NOTE | 2019-09-30 16:29 | P.CRDCN ---
History of Present Illness Consult date: 09/29/19 Consult reason: hypertension, shortness of breath History of present illness: This is Dr. Mir dictating a consult on this patient The patient was interviewed and examined by me IMPRESSION / ASSESSMENT: Likely diastolic heart failure with preserved LV systolic function secondary to hypertensive heart disease and elevated blood pressure readings Extensive past medical history of aortic disease, hypertension, pulmonary and was on DVT and refractory to Coumadin therapy Currently on ELIQUIS Chronic kidney disease BUN 40 creatinine 1.0 GFR 52 Normal cardiac enzymes HDL 63 LDL 131, total cholesterol 214 PLAN: Increase amlodipine to 10 mg by mouth daily Add spironolactone and stop oral potassium Continue Toprol-XL HPI 84-year-old female presenting with increasing shortness of breath she is a past history of aortic graft replacement recurrent pulmonary embolism and DVT despite Coumadin Currently on ELIQUIS and a [place] filter was placed She's been complaining of shortness of breath for a week and a 9 pound weight gain Elevated BNP was noted When I examined the patient she was taking a deep breath and hyperventilating 2 cardiac enzymes normal Sinus rhythm normal [place] , left bundle-branch block pattern ROS: No fever chills or rigors, no cough, phlegm or expectoration, no nausea, vomiting or diarrhea, no hematuria, dysuria, no musculoskeletal complaints, no strokes or seizures, no skin lesions. EXAMINATION: Blood pressure elevated at 151/69 She was admitted it was 192/48 mmHg Breath sounds are reduced bilaterally but there are no rhonchi no crackles Heart sounds S1 is soft Afebrile No JVD Abdomen is soft REVIEW OF LABS, ECG & MEDICAL DATA 2-D echo shows preserved LV systolic function, diastolic dysfunction normal RV size mild aortic regurgitation and mild aortic stenosis RVSP 35 mmHg Thoracic aneurysm unchanged from prior exam Persistent endoleak No pulmonary embolism Abdominal analysis 2.5 cm right adrenal mass Past Medical History Past Medical History: Atrial Fibrillation, Blood Disorder, Coronary Artery Disease (CAD), Chest Pain / Angina, Heart Failure, CVA/TIA, Deep Vein Thrombosis (DVT), Eye Disorder, GERD/Reflux, Hyperlipidemia, Hypertension, Myocardial Infarction ([place]), Osteoarthritis (OA), Pneumonia, Syncope, Thyroid Disorder, Vascular Disorder Additional Past Medical History / Comment(s): Pt recently diagnosed with afib,. 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 DVTs multiple in R leg and once in L arm, PEs-showering pulmonary embolisms bilateral lungs, chronic thrombophlebitis, coronary blockages, leaky cardiac valves, AAA thoracic and abdominal both stented, duodenal ulcer, hiatal hernia, diverticular dx, colitis, IBS, H. Pylori, frequent diarrhea, chronic anemia, bronchitis, pneumonias, mac ular degeneration bilaterally, syncopal episodes. Last Myocardial Infarction Date:: UNKNOWN History of Any Multi-Drug Resistant Organisms: None Reported Past Surgical History: Appendectomy, Cholecystectomy, Heart Catheterization, Hysterectomy Additional Past Surgical History / Comment(s): 09/2015 thoracic aortic aneurysm stent, 07/2017 thoracic aortic aneurysm stent leaking and another stent placed as well as abdominal aortic aneurysm stented, cardiac caths, green field filter, bone marrow aspiration, exploratory lap for adhesions, EGD/colonoscopies with benign polypectomy, hemorrhoidectomy, R leg vein stripping. Past Anesthesia/Blood Transfusion Reactions: Blood Transfusion Reaction Additional Past Anesthesia/Blood Transfusion Reaction / Comment(s): Heart failure/fluid overload Past Psychological History: No Psychological Hx Reported Smoking Status: Never smoker Past Alcohol Use History: None Reported Past Drug Use History: None Reported - Past Family History Father Family Medical History: Coronary Artery Disease (CAD), Myocardial Infarction ([place]) Mother Family Medical History: COPD, Coronary Artery Disease (CAD), Deep Vein Thrombosis (DVT) Brother(s) Family Medical History: Coronary Artery Disease (CAD), Myocardial Infarction ([place]) Sister(s) Family Medical History: Cancer Additional Family Medical History / Comment(s): Uterine Medications and Allergies Home Medications Medication Instructions Recorded Confirmed Type amLODIPine BESYLATE [Amlodipine 5 mg PO DAILY 09/30/15 09/28/19 History Besylate] Potassium Chloride [Klor-Con 10] 10 meq PO DAILY 07/20/16 09/28/19 History Levothyroxine Sodium [Synthroid] 100 mcg PO DAILY 09/10/16 09/28/19 History Metoprolol Succinate [Toprol XL] 100 mg PO DAILY 09/10/16 09/28/19 History Furosemide [Lasix] 40 mg PO TID 12/25/18 09/28/19 History Apixaban [Eliquis] 5 mg PO BID 09/28/19 09/28/19 History Carboxymethylcellulose Sodium 1 drop BOTH EYES DAILY PRN 09/28/19 09/28/19 History [Refresh Tears] Isosorbide Mononitrate ER [Imdur] 60 mg PO DAILY 09/28/19 09/28/19 History Melatonin 5 mg PO HS 09/28/19 09/28/19 History Nitroglycerin Sl Tabs [Nitrostat] 0.4 mg SUBLINGUAL Q5M PRN 09/28/19 09/28/19 History rOPINIRole HCL [Requip] 0.25 mg PO HS 09/28/19 09/28/19 History Albuterol Inhaler [Ventolin Hfa 1 - 2 puff INHALATION RT-Q6H PRN 09/30/19 Rx Inhaler] #1 inhaler Allergies Allergy/AdvReac Type Severity Reaction Status Date / Time black pepper Allergy Severe Anaphylaxis Verified 09/28/19 16:57 Influenza Virus Vaccines Allergy Severe Unknown Verified 09/28/19 16:57 peanut Allergy Severe Anaphylaxis Verified 09/28/19 16:57 prednisone Allergy Severe Dyspnea Verified 09/30/19 12:23 atropine [From ] Allergy Unknown Verified 09/28/19 16:57 chocolate flavor Allergy Itching Verified 09/28/19 16:57 hyoscyamine [From ] Allergy Unknown Verified 09/28/19 16:57 Iodinated Contrast Media Allergy Swelling Verified 09/28/19 16:57 [Iodinated Contrast Media - IV Dye] phenobarbital [From ] Allergy Unknown Verified 09/28/19 16:57 propoxyphene [From [place]] Allergy Unknown Verified 09/28/19 16:57 scopolamine [From ] Allergy Unknown Verified 09/28/19 16:57 Sulfa (Sulfonamide Allergy Rash/Hives Verified 09/28/19 16:57 Antibiotics) venom-honey bee Allergy Unknown Verified 09/28/19 16:57 [bee venom (honey bee)] acetaminophen [From [place]] AdvReac Hallucinati Verified 09/28/19 16:57 ons belladonna alkaloids AdvReac Unknown Verified 09/28/19 16:57 hydrocodone [From [place]] AdvReac Hallucinati Verified 09/28/19 16:57 ons simvastatin [From Zocor] AdvReac WEAKNESS Verified 09/28/19 16:57 SMELT Allergy Itching Uncoded 12/25/18 17:21 Physical Exam Vitals: Vital Signs Temp Pulse Resp BP BP Pulse Ox 09/30/19 08:14 97.4 F L 85 16 144/71 100 09/30/19 01:10 97.6 F 77 134/69 96 09/29/19 21:49 83 147/66 98 09/29/19 21:40 151/69 09/29/19 20:47 97.7 F 76 18 192/48 98 Intake and Output 09/30/19 09/30/19 09/30/19 06:59 14:59 22:59 Intake Total 240 296 Balance 240 296 Intake: Oral 240 296 Other: # Voids 2 2 Weight 62.5 kg Results 09/28/19 11:58 09/29/19 06:58 Intake and Output 09/30/19 09/30/19 09/30/19 06:59 14:59 22:59 Intake Total 240 296 Balance 240 296 Intake: Oral 240 296 Other: # Voids 2 2 Weight 62.5 kg Patient Weight 10/01/19 06:59 Weight 62.5 kg 09/28/19 11:58 09/29/19 06:58
== END 2019-09-30 14:00 | disposition home or self-care (01) | DRG 291 ==
LOC: EC 10:55 → 3SCARD 18:04 → 4SSUR 09-29 19:35
PROVIDERS: ADMIT Hospitalist; ATTEND Hospitalist
DX: I13.0 Hypertensive heart and chronic kidney disease with heart failure and stage 1 through stage 4 chronic kidney disease, or unspecified chronic kidney disease (principal); I50.33 Acute on chronic diastolic (congestive) heart failure; I48.20 Chronic atrial fibrillation, unspecified; I71.2 Thoracic aortic aneurysm, without rupture; N18.9 Chronic kidney disease, unspecified; Z68.31 Body mass index [BMI] 31.0-31.9, adult; E03.9 Hypothyroidism, unspecified; E66.9 Obesity, unspecified; E78.5 Hyperlipidemia, unspecified; I25.10 Atherosclerotic heart disease of native coronary artery without angina pectoris; I25.2 Old myocardial infarction; I44.0 Atrioventricular block, first degree; I44.7 Left bundle-branch block, unspecified; I69.322 Dysarthria following cerebral infarction; K57.90 Diverticulosis of intestine, part unspecified, without perforation or abscess without bleeding; M19.90 Unspecified osteoarthritis, unspecified site; Z79.01 Long term (current) use of anticoagulants; Z79.890 Hormone replacement therapy; Z79.899 Other long term (current) drug therapy; Z82.49 Family history of ischemic heart disease and other diseases of the circulatory system; Z82.5 Family history of asthma and other chronic lower respiratory diseases; Z86.19 Personal history of other infectious and parasitic diseases; Z86.711 Personal history of pulmonary embolism; Z86.718 Personal history of other venous thrombosis and embolism; Z87.11 Personal history of peptic ulcer disease; Z86.010 Personal history of colon polyps; Z90.710 Acquired absence of both cervix and uterus; Z95.5 Presence of coronary angioplasty implant and graft; Z95.828 Presence of other vascular implants and grafts; K58.0 Irritable bowel syndrome with diarrhea; Z83.2 Family history of diseases of the blood and blood-forming organs and certain disorders involving the immune mechanism; Z88.2 Allergy status to sulfonamides; Z88.7 Allergy status to serum and vaccine; Z88.8 Allergy status to other drugs, medicaments and biological substances; Z91.030 Bee allergy status; Z91.041 Radiographic dye allergy status; Z88.5 Allergy status to narcotic agent; Z91.013 Allergy to seafood; Z90.49 Acquired absence of other specified parts of digestive tract
CPT/HCPCS: 36415; 71046; 71275; 80048; 80053; 80061; 81001; 83605; 83880; 84484; 85025; 85379; 85610; 85730; 93005; 93306; 94760; 96374; 96375; 99285

== ENCOUNTER → 2020-04-23 | Outpatient (CLI) | payer MEDICARE, BC ==
[2020-04-24 06:11] LABS: African American GFR (CKD) 39.6 (60.0-200.0); Albumin 4.4 g/dL (3.80-4.90); Albumin/Globulin Ratio 1.52 (1.60-3.17); Anion Gap 13.2 mmol/L (4.00-12.00); BUN/Creat Ratio 32.14 Ratio (12.00-20.00); Calcium 10.9 mg/dL (8.7-10.3); Carbon Dioxide 23.8 mmol/L (21.6-31.8); Chol/HDL Ratio 3.66; Globulin 2.9 g/dL (1.6-3.3); LDL Cholesterol,Calculated 114.8 mg/dL (0.0-131.0); Non-African American GFR(CKD) 34.2 (60.0-200.0); Potassium 4.8 mmol/L (3.5-5.5); Total Bilirubin 0.4 mg/dL (0.3-1.2); Total Protein 7.3 g/dL (6.2-8.2); VLDL Calculation 34.2 mg/dL (5.00-40.00)
== END | disposition home or self-care (01) ==
LOC: LABWHC1 14:59
PROVIDERS: ATTEND Nurse Practitioner Adult Health
DX: I10 Essential (primary) hypertension (principal); E78.2 Mixed hyperlipidemia
CPT/HCPCS: 36415; 80053; 80061

== ENCOUNTER → 2020-05-15 | Outpatient (CLI) | payer MEDICARE, BC ==
[2020-05-15 18:10] LABS: Anion Gap 9.6 mmol/L (4.00-12.00); BUN/Creat Ratio 32.73 Ratio (12.00-20.00); Calcium 10.6 mg/dL (8.7-10.3); Carbon Dioxide 27.4 mmol/L (21.6-31.8); Non-African American GFR(CKD) 45.7 (60.0-200.0); Potassium 4.7 mmol/L (3.5-5.5)
== END | disposition home or self-care (01) ==
LOC: LABWHC1 09:47
PROVIDERS: ATTEND Nurse Practitioner Adult Health
DX: N18.9 Chronic kidney disease, unspecified (principal)
CPT/HCPCS: 36415; 80048

== ENCOUNTER → 2020-06-27 | Outpatient (CLI) | payer MEDICARE, BC ==
[2020-06-27 14:01] LABS: HCT 43.4 % (34.0-46.0); HGB 13.7 gm/dL (11.4-16.0); MCH 30.7 pg (25.0-35.0); MCHC 31.6 g/dL (31.0-37.0); MCV 97.4 fL (80.0-100.0); Platelet Count 234 k/uL (150-450); RBC 4.45 m/uL (3.80-5.40); RDW 13.2 % (11.5-15.5); WBC 8.9 k/uL (3.8-10.6)
[2020-06-27 14:15] LABS: Albumin 4.2 g/dL (3.5-5.0); Magnesium 2.2 mg/dL (1.6-2.3); Phosphorus 3.8 mg/dL (2.5-4.5); Potassium 4.8 mmol/L (3.5-5.1); Total Bilirubin 0.8 mg/dL (0.2-1.3); Total Protein 7.8 g/dL (6.3-8.2); Uric Acid 5.9 mg/dL (3.7-7.4)
[2020-06-27 16:24] LABS: Amorphous Sediment,Urine Rare /hpf; Appearance,Urine Cloudy (Clear); Bacteria,Urine Occasional /hpf; Bilirubin,Urine Negative (Negative); Blood,Urine Negative (Negative); Color,Urine Yellow; Glucose,Urine (UA) Negative (Negative); Hyaline Casts,Urine 186 /lpf (0-2); Ketones,Urine Negative (Negative); Leukocyte Esterase,Urine Negative (Negative); Mucus,Urine Few /hpf; Nitrite,Urine Negative (Negative); PH, Urine 5.5 (5.0-8.0); Protein,Urine 1+ (Negative); RBC,Urine 1 /hpf (0-5); Specific Gravity,Urine 1.021 (1.001-1.035); Squamous Epithelial Cell,Urine 29 /hpf (0-4); WBC,Urine 4 /hpf (0-5)
--- NOTE | 2020-06-27 19:51 | NM ---
EXAMINATION TYPE: NM parathyroid w/spect DATE OF EXAM: 06/27/2020 COMPARISON: NONE HISTORY: E 83.52, hypercalcemia TECHNIQUE: Following administration of 25.3 mCi Tc99m Sestamibi. Anterior projection images of the neck and ches t were obtained 10 minutes and 3 hours post injection. SPECT images of the neck and chest were obtai bridget and reconstructed in three axes. FINDINGS: Thyroid tracer washout: Delayed images demonstrate near-complete tracer washout from the thyroid. Parathyroid uptake: None. The two-hour delayed images do not demonstrate any focal abnormal persisten t uptake in the region of the parathyroid glands to suggest parathyroid adenoma. Normal uptake: There is physiological tracer uptake in the salivary glands and thyroid gland. IMPRESSION: Normal parathyroid imaging study. No evidence for parathyroid adenoma
--- NOTE | 2020-06-27 19:55 | US ---
EXAMINATION TYPE: US kidneys/renal and bladder DATE OF EXAM: 06/27/2020 COMPARISON: CT 12/26/2018, ultrasound 07/17/2016 CLINICAL HISTORY: CHRONIC KIDNEY DISEASE N18.3. EXAM MEASUREMENTS: Right Kidney: 9.5 x 4.9 x 5.8 cm Left Kidney: 10.6 x 4.8 x 3.9 cm Right Kidney: No hydro. Loss of corticomedullary differentiation. Cyst mid pole measuring 1.6 cm. Sup erior to right kidney, there is a complex area visualized measuring 3.9 x 3.2 x 3.2 cm, possible adre nal lesion corresponding 2 known adrenal mass Left Kidney: No hydro. Loss of corticomedullary differentiation. Cyst lower pole measuring 3.8 Bladder: wnl as visualized, not fully distended Bilateral Jets seen: no IMPRESSION: Findings consistent with medical renal disease, cysts appear to be simple within the kidneys.
[2020-06-27 20:34] LABS: % Iron Saturation 21.56 (12.00-45.00)
[2020-06-27 20:44] LABS: Ferritin 1137.6 ng/mL (10.0-291.0)
[2020-06-28 08:23] LABS: Angiotensin-1 Converting Enz. 31 U/L (8-52)
[2020-06-28 12:11] LABS: Vitamin D, 1, 25-Dihydroxy 77 pg/mL (20 - 79)
== END | disposition home or self-care (01) ==
LOC: RADNMMAIN 10:32
PROVIDERS: ATTEND Internal Medicine
DX: N18.30 Chronic kidney disease, stage 3 unspecified (principal); D63.1 Anemia in chronic kidney disease; E55.9 Vitamin D deficiency, unspecified; N39.0 Urinary tract infection, site not specified; N25.81 Secondary hyperparathyroidism of renal origin; M10.9 Gout, unspecified
CPT/HCPCS: 82652; 80053; 82728; 82164; 83540; 83550; 83735; 84100; 84550; 85027; 81001; 82306; 83970; 76770; 78071; A9500

== ENCOUNTER 2021-02-16 | Inpatient (IN) | payer MEDICARE, BC | END 2021-02-20 15:01 | disposition home or self-care (01) | DRG 64 | PROVIDERS: ADMIT Internal Medicine | DX: I63.9 Cerebral infarction, unspecified (principal); I50.23 Acute on chronic systolic (congestive) heart failure; I13.0 Hypertensive heart and chronic kidney disease with heart failure and stage 1 through stage 4 chronic kidney disease, or unspecified chronic kidney disease; I48.19 Other persistent atrial fibrillation; N17.9 Acute kidney failure, unspecified; G81.91 Hemiplegia, unspecified affecting right dominant side; E03.9 Hypothyroidism, unspecified; R47.01 Aphasia; E78.5 Hyperlipidemia, unspecified; Z20.822 Contact with and (suspected) exposure to COVID-19; H91.90 Unspecified hearing loss, unspecified ear; I08.1 Rheumatic disorders of both mitral and tricuspid valves; I25.10 Atherosclerotic heart disease of native coronary artery without angina pectoris; I25.2 Old myocardial infarction; I27.20 Pulmonary hypertension, unspecified; I73.9 Peripheral vascular disease, unspecified; K21.9 Gastro-esophageal reflux disease without esophagitis; F41.9 Anxiety disorder, unspecified; H35.30 Unspecified macular degeneration; I20.9 Angina pectoris, unspecified; I44.0 Atrioventricular block, first degree; I71.2 Thoracic aortic aneurysm, without rupture; I71.4 Abdominal aortic aneurysm, without rupture; K44.9 Diaphragmatic hernia without obstruction or gangrene; K52.9 Noninfective gastroenteritis and colitis, unspecified; K58.9 Irritable bowel syndrome, unspecified; M19.90 Unspecified osteoarthritis, unspecified site; D64.9 Anemia, unspecified; E87.70 Fluid overload, unspecified; I70.0 Atherosclerosis of aorta; R29.810 Facial weakness; Z79.01 Long term (current) use of anticoagulants; Z79.82 Long term (current) use of aspirin; Z79.890 Hormone replacement therapy; Z79.899 Other long term (current) drug therapy; Z82.49 Family history of ischemic heart disease and other diseases of the circulatory system; Z82.5 Family history of asthma and other chronic lower respiratory diseases; Z86.711 Personal history of pulmonary embolism; Z86.718 Personal history of other venous thrombosis and embolism; Z86.72 Personal history of thrombophlebitis; Z86.73 Personal history of transient ischemic attack (TIA), and cerebral infarction without residual deficits; Z87.11 Personal history of peptic ulcer disease; Z88.8 Allergy status to other drugs, medicaments and biological substances; Z90.710 Acquired absence of both cervix and uterus; Z91.041 Radiographic dye allergy status; N18.30 Chronic kidney disease, stage 3 unspecified | CPT/HCPCS: 36415; 70450; 70551; 71045; 71046; 80048; 80053; 80061; 83036; 83735; 83880; 84484; 85025; 85610; 85730; 87635; 93005; 93306; 95816; 99285 ==

== ENCOUNTER → 2021-02-24 | Outpatient (CLI) | payer MEDICARE, BC ==
--- NOTE | 2021-02-25 08:05 | US ---
EXAMINATION TYPE: US kidneys/renal and bladder DATE OF EXAM: 02/24/2021 COMPARISON: 06/27/2020 CLINICAL HISTORY: N18.3 stage 3 kidney disease. EXAM MEASUREMENTS: Right Kidney: 9.4 x 4.3 x 4.4 cm Left Kidney: 9.3 x 4.6 x 4.3 cm Patient of large body habitus. Right Kidney: lobular contour, cortical thinning, cyst measuring 1.7 x 1.6 x 1.3cm, superior mass se en previously not seen on today's ultrasound Left Kidney: multiple small cysts, larger lateral cyst measuring 4.3 x 3.8 x 4.4cm Bladder: not fully distended There is no evidence for hydronephrosis at this point in time. No nephrolithiasis is seen. The urin billy bladder is anechoic. IMPRESSION: 1. No definite hydronephrosis. 2. Both kidneys are lobular in contour with renal cortical thinning and multiple cysts and other anec hoic lesions. Further evaluation could be obtained with MRI abdomen with and without contrast, if cli nically warranted. Otherwise, sonographic follow-up could be obtained.
== END | disposition home or self-care (01) ==
LOC: RADUSWWP 15:56
PROVIDERS: ATTEND Internal Medicine
DX: N18.30 Chronic kidney disease, stage 3 unspecified (principal); N28.1 Cyst of kidney, acquired; N28.9 Disorder of kidney and ureter, unspecified
CPT/HCPCS: 76770

== ENCOUNTER 2021-02-26 13:49 | Emergency (ER) | payer MEDICARE, BC ==
[2021-02-26 13:58] VITALS: RESP 18
[2021-02-26] MEDS ORDERED: MORPHINE SULFATE 4 MG/ML SYRINGE IVP STA (14:10)
[2021-02-26] MEDS ORDERED: DIPH,PERTUS(ACELL)TETVAC-LF 0.5 ML VIAL IM ONE (14:10)
--- NOTE | 2021-02-26 14:15 | ED ---
General Adult HPI - General Chief complaint: Fall Stated complaint: fall Time Seen by Provider: 02/26/21 14:00 Source: patient Mode of arrival: ambulatory Limitations: no limitations - History of Present Illness Initial comments: 85 year old female presents to the emergency room for a chief complaint of fall. Patient states she was walking down her ramp to take the trash out when she accidentally fell. Patient did hit the right side of her head on the edge of the ramp. Patient also complain of right rib pain. Patient states the pain does radiate around to her back. Patient denies loss of consciousness. Denies neck pain.Patient has no other complaints at this time including shortness of breath, chest pain, abdominal pain, nausea or vomiting, headache, or visual changes. - Related Data Home Medications Medication Instructions Recorded Confirmed amLODIPine BESYLATE [Amlodipine 2.5 mg PO DAILY 09/30/15 02/16/21 Besylate] Levothyroxine Sodium [Synthroid] 100 mcg PO DAILY@0700 09/10/16 02/16/21 Metoprolol Succinate [Toprol XL] 100 mg PO DAILY 09/10/16 02/16/21 Isosorbide Mononitrate ER [Imdur] 60 mg PO DAILY 09/28/19 02/16/21 Melatonin 5 mg PO HS PRN 09/28/19 02/16/21 rOPINIRole HCL [Requip] 0.25 mg PO HS 09/28/19 02/16/21 Apixaban [Eliquis] 2.5 mg PO BID@0800,2000 02/16/21 02/16/21 Cinacalcet [Sensipar] 30 mg PO MOFR 02/16/21 02/16/21 Ergocalciferol (Vitamin D2) 1,250 mcg PO Q30D 02/16/21 02/16/21 [Drisdol (50,000 Iu)] Loperamide [Imodium] 2 mg PO TID PRN 02/16/21 02/16/21 Magnesium Oxide [Mag-Ox] 400 mg PO DAILY 02/16/21 02/16/21 Previous Rx's Medication Instructions Recorded Aspirin 81 mg PO DAILY #30 chew 02/20/21 Furosemide [Lasix] 20 mg PO DAILY tab 02/20/21 Losartan [Cozaar] 50 mg PO DAILY #30 tab 02/20/21 Acetaminophen-Codeine 300-30mg 1 tab PO Q8H PRN #10 tablet 02/26/21 [Tylenol #3] Lidocaine 5% Patch [Lidoderm 5% 1 patch TOPICAL DAILY PRN 5 Days 02/26/21 Patch] #5 patch Allergies Allergy/AdvReac Type Severity Reaction Status Date / Time black pepper Allergy Severe Anaphylaxis Verified 02/26/21 13:59 Influenza Virus Vaccines Allergy Severe Unknown Verified 02/26/21 13:59 peanut Allergy Severe Anaphylaxis Verified 02/26/21 13:59 prednisone Allergy Severe Dyspnea Verified 02/26/21 13:59 atropine [From ] Allergy Unknown Verified 02/26/21 13:59 chocolate flavor Allergy Itching Verified 02/26/21 13:59 hyoscyamine [From ] Allergy Unknown Verified 02/26/21 13:59 Iodinated Contrast Media Allergy Swelling Verified 02/26/21 13:59 [Iodinated Contrast Media - IV Dye] phenobarbital [From ] Allergy Unknown Verified 02/26/21 13:59 propoxyphene [From [place]] Allergy Unknown Verified 02/26/21 13:59 scopolamine [From ] Allergy Unknown Verified 02/26/21 13:59 Sulfa (Sulfonamide Allergy Rash/Hives Verified 02/26/21 13:59 Antibiotics) venom-honey bee Allergy Unknown Verified 02/26/21 13:59 [bee venom (honey bee)] acetaminophen [From [place]] AdvReac Hallucinati Verified 02/26/21 13:59 ons belladonna alkaloids AdvReac Unknown Verified 02/26/21 13:59 hydrocodone [From [place]] AdvReac Hallucinati Verified 02/26/21 13:59 ons simvastatin [From Zocor] AdvReac WEAKNESS Verified 02/26/21 13:59 SMELT Allergy Itching Uncoded 02/26/21 13:59 Review of Systems ROS Statement: Those systems with pertinent positive or pertinent negative responses have been documented in the HPI. ROS Other: All systems not noted in ROS Statement are negative. Past Medical History Past Medical History: Atrial Fibrillation, Blood Disorder, Coronary Artery Disease (CAD), Chest Pain / Angina, Heart Failure, CVA/TIA, Deep Vein Thrombosis (DVT), Eye Disorder, GERD/Reflux, Hyperlipidemia, Hypertension, Myocardial Infarction ([place]), Osteoarthritis (OA), Pneumonia, Syncope, Thyroid Disorder, Vascular Disorder Additional Past Medical History / Comment(s): Pt recently diagnosed with afib,. 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 DVTs multiple in R leg and once in L arm, PEs-showering pulmonary embolisms bilateral lungs, chronic thrombop hlebitis, coronary blockages, leaky cardiac valves, AAA thoracic and abdominal both stented, duodenal ulcer, hiatal hernia, diverticular dx, colitis, IBS, H. Pylori, frequent diarrhea, chronic anemia, bronchitis, pneumonias, macular degeneration bilaterally, syncopal episodes. Last Myocardial Infarction Date:: UNKNOWN History of Any Multi-Drug Resistant Organisms: None Reported Past Surgical History: Appendectomy, Cholecystectomy, Heart Catheterization, Hysterectomy Additional Past Surgical History / Comment(s): 09/2015 thoracic aortic aneurysm stent, 07/2017 thoracic aortic aneurysm stent leaking and another stent placed as well as abdominal aortic aneurysm stented, cardiac caths, green field filter, bone marrow aspiration, exploratory lap for adhesions, EGD/colonoscopies with benign polypectomy, hemorrhoidectomy, R leg vein stripping. Past Anesthesia/Blood Transfusion Reactions: Blood Transfusion Reaction Additional Past Anesthesia/Blood Transfusion Reaction / Comment(s): Heart failure/fluid overload Past Psychological History: No Psychological Hx Reported Smoking Status: Never smoker, Unknown if ever smoked Past Alcohol Use History: None Reported Past Drug Use History: None Reported - Past Family History Father Family Medical History: Coronary Artery Disease (CAD), Myocardial Infarction ([place]) Mother Family Medical History: COPD, Coronary Artery Disease (CAD), Deep Vein Thrombosis (DVT) Brother(s) Family Medical History: Coronary Artery Disease (CAD), Myocardial Infarction ([place]) Sister(s) Family Medical History: Cancer Additional Family Medical History / Comment(s): Uterine General Exam Limitations: no limitations General appearance: alert, in no apparent distress Head exam: Present: normocephalic. Absent: atraumatic (Patient has a small contusion noted to the right parietal scalp.) Eye exam: Present: normal appearance, PERRL, EOMI. Absent: scleral icterus, conjunctival injection, periorbital swelling ENT exam: Present: normal exam, mucous membranes moist, other (small abrasion to the right side of the face) Neck exam: Present: other (c-collar in place) Respiratory exam: Present: normal lung sounds bilaterally, chest wall tenderness (Right sided anterior rib tenderness around rib 7.). Absent: respiratory distress, wheezes, rales, rhonchi, stridor Cardiovascular Exam: Present: regular rate, normal rhythm, normal heart sounds. Absent: systolic murmur, diastolic murmur, rubs, gallop, clicks GI/Abdominal exam: Present: soft, normal bowel sounds. Absent: distended, tenderness, guarding, rebound, rigid Back exam: Absent: CVA tenderness (R), CVA tenderness (L), vertebral tenderness Course Vital Signs 02/26/21 13:53 Temperature 97.7 F Pulse Rate 67 Respiratory 18 Rate Blood Pressure 166/77 O2 Sat by Pulse 96 Oximetry Medical Decision Making - Medical Decision Making Unable to give patient IV contrast. Patient reports that she has an ALLERGY. The last time she had IV contrast she was given premeds but still developed angioedema. She states her lips and throat swelled up despite the medication. vitals are stable. The patient is well-appearing. Patient presents for mechanical fall. Patient does have right-sided anterior rib pain. She also has a skin tear to the right cheek area. CBC CMP unremarkable. Chronic kidney disease noted. Potassium 5.4 but slight hemolysis. The brain shows chronic- appearing microvascular ischemic changes. CT cervical spine shows no acute osseous abnormality. CT chest abdomen and pelvis does not show any acute posterior right changes on report however when image was reviewed she does have a rib fracture noted by myself and Dr. Leonardo. Patient was given pain medication as well as incentive spirometry. After workup patient did complain of right thumb pain. I did offer to x-ray this however patient prefers discharge home and follow-up with her doctor.I discussed this case with attending Dr. Leonardo who agrees with this assessment and treatment plan. Patient was discharged home with pain medication. Patient's granddaughter is going to stay with her over the next few days. They are agreeable to discharge home. Will return for any worsening symptoms. - Lab Data Result diagrams: 02/26/21 14:43 02/26/21 14:43 Lab Results 02/26/21 02/26/21 02/26/21 Range/Units 14:43 14:43 14:43 WBC 9.5 (3.8-10.6) k/uL RBC 4.21 (3.80-5.40) m/uL Hgb 12.7 (11.4-16.0) gm/dL Hct 38.3 (34.0-46.0) % MCV 91.0 (80.0-100.0) fL MCH 30.2 (25.0-35.0) pg MCHC 33.1 (31.0-37.0) g/dL RDW 13.3 (11.5-15.5) % Plt Count 276 (150-450) k/uL MPV 7.9 Neutrophils % 81 % Lymphocytes % 12 % Monocytes % 4 % Eosinophils % 1 % Basophils % 0 % Neutrophils # 7.7 (1.3-7.7) k/uL Lymphocytes # 1.1 (1.0-4.8) k/uL Monocytes # 0.4 (0-1.0) k/uL Eosinophils # 0.1 (0-0.7) k/uL Basophils # 0.0 (0-0.2) k/uL PT 10.8 (9.0-12.0) sec INR 1.0 (<1.2) APTT 20.9 L (22.0-30.0) sec Sodium 135 L (137-145) mmol/L Potassium 5.4 H (3.5-5.1) mmol/L Chloride 102 (98-107) mmol/L Carbon Dioxide 26 (22-30) mmol/L Anion Gap 7 mmol/L BUN 45 H (7-17) mg/dL Creatinine 1.36 H (0.52-1.04) mg/dL Est GFR (CKD-EPI)AfAm 41 (>60 ml/min/1.73 sqM) Est GFR (CKD-EPI)NonAf 36 (>60 ml/min/1.73 sqM) Glucose 106 H (74-99) mg/dL Calcium 9.9 (8.4-10.2) mg/dL Total Bilirubin 0.7 (0.2-1.3) mg/dL AST 41 H (14-36) U/L ALT 20 (4-34) U/L Alkaline Phosphatase 90 (38-126) U/L Total Protein 7.1 (6.3-8.2) g/dL Albumin 3.9 (3.5-5.0) g/dL Disposition Clinical Impression: Fall, Skin tear, Rib fracture Disposition: HOME SELF-CARE Condition: Good Instructions (If sedation given, give patient instructions): Rib Fracture (ED) Additional Instructions: Please take Tylenol 3 as needed for pain. Use lidocaine patches as directed. Please follow-up with patient's doctor. Do incentive spirometery frequently drop today. Return to the emergency room for any worsening symptoms. Prescriptions: Lidocaine 5% Patch [Lidoderm 5% Patch] 1 patch TOPICAL DAILY PRN 5 Days #5 patch PRN Reason: Pain Acetaminophen-Codeine 300-30mg [Tylenol #3] 1 tab PO Q8H PRN #10 tablet PRN Reason: Pain Is patient prescribed a controlled substance at d/c from ED?: No Referrals: Fabian Kay MD [Primary Care Provider] - 1-2 days Time of Disposition: 16:28
[2021-02-26 14:53] LABS: Basophils % (A) 0 %; Eosinophils # (A) 0.1 k/uL (0-0.7); Eosinophils % (A) 1 %; HCT 38.3 % (34.0-46.0); HGB 12.7 gm/dL (11.4-16.0); Lymphocytes # (A) 1.1 k/uL (1.0-4.8); Lymphocytes % (A) 12 %; MCH 30.2 pg (25.0-35.0); MCHC 33.1 g/dL (31.0-37.0); Mean Platelet Volume 7.9; Monocytes # (A) 0.4 k/uL (0-1.0); Monocytes % (A) 4 %; Neutrophils # (A) 7.7 k/uL (1.3-7.7); Neutrophils % (A) 81 %; Platelet Count 276 k/uL (150-450); RBC 4.21 m/uL (3.80-5.40); RDW 13.3 % (11.5-15.5); WBC 9.5 k/uL (3.8-10.6)
[2021-02-26 15:05] LABS: Partial Thromboplastin Time 20.9 sec (22.0-30.0); Prothrombin Time 10.8 sec (9.0-12.0)
[2021-02-26 15:08] LABS: Albumin 3.9 g/dL (3.5-5.0); Calcium 9.9 mg/dL (8.4-10.2); Total Bilirubin 0.7 mg/dL (0.2-1.3); Total Protein 7.1 g/dL (6.3-8.2)
--- NOTE | 2021-02-26 15:21 | CT ---
EXAMINATION TYPE: CT brain sea patricia con DATE OF EXAM: 02/26/2021 COMPARISON: 02/16/2021 HISTORY: Fall, patient on eliquis CT DLP: 1364.3 mGycm, Automated exposure control for dose reduction was used. CONTRAST: Patient injected with 0 mL of Isovue 300. CT of the brain is performed utilizing 3 mm thick sections through the posterior fossa and 3 mm thick sections through the remaining calvarium. Study is performed within 24 hours of arrival to the hospital. No abnormal hyperdensity is present to suggest an acute intracranial hemorrhage. No mass lesion is evident. No acute infarcts are evident. There is an old lacunar infarct within the left basal ganglia. Perive ntricular white matter hypodensity is present, likely on the basis of chronic white matter ischemic c hanges Ventricles and sulci are prominent for the patient age. There is some prominent extra-axial spaces a long the frontal regions bilaterally. There is some soft tissue swelling over the right temporal parietal region no underlying fracture is evident. There is an air-fluid level within the right maxillary sinus. IMPRESSIONS: 1. Chronic appearing microvascular ischemic type changes with atrophy. CT cervical spine. COMPARISON: None CT of the cervical spine is performed in the axial plane at 2 mm thick sections. Reconstructed image s in the coronal, and sagittal plane are reviewed on the computer. No acute fractures are evident. There is some cervical kyphosis in the lower cervical upper thoracic region Diffuse loss of disc height is present. Vertebral body heights are preserved. No spinal canal stenosis is evident. Multilevel foraminal narrowing from uncovertebral joint hypertrophy is noted. There is a stent within the aneurysmal thoracic aorta. IMPRESSIONS: 1. No acute osseous abnormality cervical spine. 2. Chronic uncovertebral joint hypertrophy and degenerative disc changes contributing to foraminal na rrowing
--- NOTE | 2021-02-26 15:29 | CT ---
EXAMINATION TYPE: CT ChestAbdPelvis wo con DATE OF EXAM: 02/26/2021 INDICATION: Fall, patient on eliquis COMPARISON: CT abdomen and pelvis 12/26/2018, CT thoracic region 08/17/2018 CT DLP: 870.1 mGycm CONTRAST: Performed without Oral Contrast. No intravenous contrast TECHNIQUE: Axial images at 5 mm thick sections. Reconstructed images in the coronal plane. Delayed images through the kidneys. FINDINGS: CT CHEST: Portion of the thyroid visualized is normal. No suspicious lung nodules or focal infiltrates are present. No enlarged mediastinal or hilar adenopathy is evident. There is a aneurysm of the aortic arch and descending thoracic aorta. Ascending thoracic aorta at the main pulmonary artery is 3.5 cm. The main pulmonary artery the bifurcation is 2.7 cm. The descending thoracic aorta has aneurysmal dilatation of the transverse dimension of 7.1 cm. Aortic stent is pres ent through this region. CT ABDOMEN: Liver: Normal Spleen: Normal Pancreas: Normal Adrenal glands: There is thickening of the right adrenal gland and 2.1 cm. Left adrenal gland appears normal. Gallbladder: Normal Kidneys: No masses are evident. No hydronephrosis is present. Kidney is on the posterior inferior l eft kidney measuring 4.1 cm and 7 Hounsfield units. Aorta: Vascular calcification is within the aorta. Inferior vena cava: Inferior vena cava filter is evident. CT PELVIS: Diverticular changes are within the sigmoid colon. No acute diverticulitis is evident. Loops of bowel are otherwise unremarkable. This study is without oral contrast limiting the evaluation. Appendix: Not identified. No dilated tubular structure or inflammatory changes are evident. Urinary bladder: Normal. Genitourinary structures: Uterus and ovaries are not identified. Osseous structures: No suspicious lytic or sclerotic lesions. IMPRESSIONS: 1. Diverticulosis without acute diverticulitis. 2. Inferior pole left renal cyst 3. Inferior vena cava filter. 4. Thickening of the right adrenal gland. 5. Stented thoracic aortic aneurysm. 6. No acute posttraumatic changes.
[2021-02-26 15:34] LABS: Potassium 5.4 mmol/L (3.5-5.1)
[2021-02-26] MEDS ORDERED: MORPHINE SULFATE 2 MG/ML SYRINGE IVP STA (15:41)
[2021-02-26] MEDS ORDERED: ACET/COD 300 MG/30 MG STARTER PACK 6 TAB BTL PO STA (16:27)
[2021-02-26] MEDS ORDERED: LIDOCAINE 5% PATCH TOPICAL STA (16:27)
[2021-02-26 17:06] VITALS: BP 153/68; PULSE 65; TEMP 97.6
== END 2021-02-26 17:04 | disposition home or self-care (01) ==
LOC: EC 13:49
DX: S22.31XA Fracture of one rib, right side, initial encounter for closed fracture (principal); S00.03XA Contusion of scalp, initial encounter; S00.81XA Abrasion of other part of head, initial encounter; I11.0 Hypertensive heart disease with heart failure; I50.9 Heart failure, unspecified; I25.10 Atherosclerotic heart disease of native coronary artery without angina pectoris; I71.2 Thoracic aortic aneurysm, without rupture; N28.1 Cyst of kidney, acquired; I48.91 Unspecified atrial fibrillation; I25.2 Old myocardial infarction; E78.5 Hyperlipidemia, unspecified; K21.9 Gastro-esophageal reflux disease without esophagitis; M19.90 Unspecified osteoarthritis, unspecified site; Z86.711 Personal history of pulmonary embolism; Z86.718 Personal history of other venous thrombosis and embolism; Z79.82 Long term (current) use of aspirin; Z79.890 Hormone replacement therapy; Z79.01 Long term (current) use of anticoagulants; Z79.899 Other long term (current) drug therapy; Z23 Encounter for immunization; Z88.2 Allergy status to sulfonamides; Z88.8 Allergy status to other drugs, medicaments and biological substances; Z88.5 Allergy status to narcotic agent; Z86.73 Personal history of transient ischemic attack (TIA), and cerebral infarction without residual deficits; W10.2XXA Fall (on)(from) incline, initial encounter; Y93.01 Activity, walking, marching and hiking
CPT/HCPCS: 90471 ×2; 96376 ×2; 96374 ×2; 99284 ×2; 36415; 80053; 85025; 85610; 85730; 72125; 70450; 71250; 74176; 90715; J2270 ×2

== ENCOUNTER 2021-03-02 21:35 | Emergency (ER) | payer MEDICARE, BC ==
[2021-03-02 21:50] VITALS: TEMP 97.6
[2021-03-02] MEDS ORDERED: ACET/COD 300 MG/30 MG STARTER PACK 6 TAB BTL PO STA (22:31)
--- NOTE | 2021-03-02 22:32 | ED ---
General Adult HPI - General Chief complaint: Chest Pain Stated complaint: Rib pain Time Seen by Provider: 03/02/21 21:56 Source: patient Mode of arrival: wheelchair Limitations: no limitations - History of Present Illness Initial comments: 85-year-old female presents to the emergency department with a chief complaint of rib pain. Patient states she was evaluated recently after having a fall several days ago. States now she continues to have right-sided rib pain along with a contusion to the region. Daughter is also present and she is requesting answers to questions regarding the CT imaging. States she was not here while the patient was initially evaluated after the fall few days ago. She states the patient has been taking the Tylenol 3 as prescribed but she continues to have pain even though she has improved over the last few days. Patient reports the pain is where the acute rib fracture occurred on right side is worse when taking a deep breath. States it is hard to sleep at night due to the pain. Pain is exacerbated when turning body embedment. She is currently anticoagulated - Related Data Home Medications Medication Instructions Recorded Confirmed amLODIPine BESYLATE [Amlodipine 2.5 mg PO DAILY 09/30/15 03/02/21 Besylate] Levothyroxine Sodium [Synthroid] 100 mcg PO DAILY@0700 09/10/16 03/02/21 Metoprolol Succinate [Toprol XL] 100 mg PO DAILY 09/10/16 03/02/21 Isosorbide Mononitrate ER [Imdur] 60 mg PO DAILY 09/28/19 03/02/21 Melatonin 5 mg PO HS PRN 09/28/19 03/02/21 rOPINIRole HCL [Requip] 0.25 mg PO HS PRN 09/28/19 03/02/21 Apixaban [Eliquis] 2.5 mg PO BID@0800,2000 02/16/21 03/02/21 Cinacalcet [Sensipar] 30 mg PO MOFR 02/16/21 03/02/21 Ergocalciferol (Vitamin D2) 1,250 mcg PO Q30D 02/16/21 03/02/21 [Drisdol (50,000 Iu)] Loperamide [Imodium] 2 mg PO TID PRN 02/16/21 03/02/21 Magnesium Oxide [Mag-Ox] 400 mg PO DAILY 02/16/21 03/02/21 Aspirin 81 mg PO HS 03/02/21 03/02/21 Atorvastatin Calcium [Lipitor] 20 mg PO DAILY 03/02/21 03/02/21 Previous Rx's Medication Instructions Recorded Furosemide [Lasix] 20 mg PO DAILY tab 02/20/21 Losartan [Cozaar] 50 mg PO DAILY #30 tab 02/20/21 Acetaminophen-Codeine 300-30mg 1 tab PO Q8H PRN #10 tablet 02/26/21 [Tylenol #3] Lidocaine 5% Patch [Lidoderm 5% 1 patch TOPICAL DAILY PRN 5 Days 02/26/21 Patch] #5 patch Acetaminophen-Codeine 300-30mg 1 tab PO Q6HR PRN 3 Days #12 tablet 03/02/21 [Tylenol #3] Allergies Allergy/AdvReac Type Severity Reaction Status Date / Time black pepper Allergy Severe Anaphylaxis Verified 03/02/21 22:16 Influenza Virus Vaccines Allergy Severe Unknown Verified 03/02/21 22:16 peanut Allergy Severe Anaphylaxis Verified 03/02/21 22:16 prednisone Allergy Severe Dyspnea Verified 03/02/21 22:16 atropine [From ] Allergy Unknown Verified 03/02/21 22:16 chocolate flavor Allergy Itching Verified 03/02/21 22:16 hyoscyamine [From ] Allergy Unknown Verified 03/02/21 22:16 Iodinated Contrast Media Allergy Swelling Verified 03/02/21 22:16 [Iodinated Contrast Media - IV Dye] phenobarbital [From ] Allergy Unknown Verified 03/02/21 22:16 propoxyphene [From Darvon] Allergy Unknown Verified 03/02/21 22:16 scopolamine [From ] Allergy Unknown Verified 03/02/21 22:16 Sulfa (Sulfonamide Allergy Rash/Hives Verified 03/02/21 22:16 Antibiotics) venom-honey bee Allergy Unknown Verified 03/02/21 22:16 [bee venom (honey bee)] acetaminophen [From Confluence] AdvReac Hallucinati Verified 03/02/21 22:16 ons belladonna alkaloids AdvReac Unknown Verified 03/02/21 22:16 hydrocodone [From Confluence] AdvReac Hallucinati Verified 03/02/21 22:16 ons simvastatin [From Zocor] AdvReac WEAKNESS Verified 03/02/21 22:16 SMELT Allergy Itching Uncoded 03/02/21 21:49 Review of Systems ROS Statement: Those systems with pertinent positive or pertinent negative responses have been documented in the HPI. ROS Other: All systems not noted in ROS Statement are negative. Past Medical History Past Medical History: Atrial Fibrillation, Blood Disorder, Coronary Artery Disease (CAD), Chest Pain / Angina, Heart Failure, CVA/TIA, Deep Vein Thrombosis (DVT), Eye Disorder, GERD/Reflux, Hyperlipidemia, Hypertension, Myocardial Infarction ([place]), Osteoarthritis (OA), Pneumonia, Syncope, Thyroid Disorder, V ascular Disorder Additional Past Medical History / Comment(s): Pt recently diagnosed with afib,. 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 DVTs multiple in R leg and once in L arm, PEs-showering pulmonary embolisms bilateral lungs, chronic thrombophlebitis, coronary blockages, leaky cardiac valves, AAA thoracic and abdominal both stented, duodenal ulcer, hiatal hernia, diverticular dx, colitis, IBS, H. Pylori, frequent diarrhea, chronic anemia, bronchitis, pneumonias, macular degeneration bilaterally, syncopal episodes. Last Myocardial Infarction Date:: UNKNOWN History of Any Multi-Drug Resistant Organisms: None Reported Past Surgical History: Appendectomy, Cholecystectomy, Heart Catheterization, Hysterectomy Additional Past Surgical History / Comment(s): 09/2015 thoracic aortic aneurysm stent, 07/2017 thoracic aortic aneurysm stent leaking and another stent placed as well as abdominal aortic aneurysm stented, cardiac caths, green field filter, bone marrow aspiration, exploratory lap for adhesions, EGD/colonoscopies with benign polypectomy, hemorrhoidectomy, R leg vein stripping. Past Anesthesia/Blood Transfusion Reactions: Blood Transfusion Reaction Additional Past Anesthesia/Blood Transfusion Reaction / Comment(s): Heart failure/fluid overload Past Psychological History: No Psychological Hx Reported Smoking Status: Never smoker, Unknown if ever smoked Past Alcohol Use History: None Reported Past Drug Use History: None Reported - Past Family History Father Family Medical History: Coronary Artery Disease (CAD), Myocardial Infarction ([place]) Mother Family Medical History: COPD, Coronary Artery Disease (CAD), Deep Vein Thrombosis (DVT) Brother(s) Family Medical History: Coronary Artery Disease (CAD), Myocardial Infarction ([place]) Sister(s) Family Medical History: Cancer Additional Family Medical History / Comment(s): Uterine General Exam Limitations: no limitations General appearance: alert, in no apparent distress, obese Head exam: Present: atraumatic, normocephalic, normal inspection Eye exam: Present: normal appearance, PERRL, EOMI Pupils: Present: normal accommodation ENT exam: Present: normal exam, normal oropharynx, mucous membranes moist Neck exam: Present: normal inspection, full ROM. Absent: tenderness, lymphadenopathy, thyromegaly Respiratory exam: Present: normal lung sounds bilaterally, chest wall tenderness (Rib contusion noted on the right side with a large area of ecchymosis). Absent: respiratory distress, wheezes, rales, rhonchi, stridor Cardiovascular Exam: Present: regular rate, normal rhythm, normal heart sounds GI/Abdominal exam: Present: soft. Absent: distended, tenderness, guarding, rebound, rigid Extremities exam: Present: normal inspection, full ROM, normal capillary refill. Absent: tenderness, pedal edema, joint swelling Back exam: Present: normal inspection, full ROM. Absent: tenderness, CVA tenderness (R), CVA tenderness (L) Neurological exam: Present: alert, oriented X3 Psychiatric exam: Present: normal affect, normal mood Skin exam: Present: warm, dry, intact, normal color Course Vital Signs 03/02/21 03/02/21 21:45 23:08 Temperature 97.6 F Pulse Rate 73 78 Respiratory 18 17 Rate Blood Pressure 135/70 134/77 O2 Sat by Pulse 97 98 Oximetry Medical Decision Making - Medical Decision Making 85-year-old male presents to emergency Department with the chief complaint rib pain. I reviewed her medical records which revealed a CT of the brain and C- spine which showed no acute findings. There is also CT of chest and pelvis without contrast which showed an acute fractures in the right rib that was detected by the attending physician Dr. Leonardo and physician assistant oceanographer Jim. The radiologist did not seem to picker operator on this finding. This information was relayed to the daughter and all of her questions and concerns were addressed accordingly. Patient will be discharged with a 3 days a Tylenol 3. Advised the patient to continue using a the incentive spirometer. I advised her to follow with a preemie care physician. Strict return parameters were thoroughly discussed patient is understanding agreeable. Case discussed with Disposition Clinical Impression: Rib contusion Disposition: HOME SELF-CARE Condition: Stable Instructions (If sedation given, give patient instructions): Rib Fracture (ED), Rib Contusion (ED) Additional Instructions: Take prescribed medication as directed. Follow with the primary care physician. Return to emergency department if symptoms worsen. Prescriptions: Acetaminophen-Codeine 300-30mg [Tylenol #3] 1 tab PO Q6HR PRN 3 Days #12 tablet PRN Reason: pain Is patient prescribed a controlled substance at d/c from ED?: Yes If prescribed controlled substance>3 days was MAPS reviewed?: Prescribed <3 Days Referrals: Fabian Kay MD [Primary Care Provider] - 1-2 days Time of Disposition: 22:32
[2021-03-02 23:10] VITALS: BP 134/77; PULSE 78; RESP 17
== END 2021-03-02 22:59 | disposition home or self-care (01) ==
LOC: EC 21:35
DX: S20.211A Contusion of right front wall of thorax, initial encounter (principal); I11.0 Hypertensive heart disease with heart failure; I50.9 Heart failure, unspecified; E78.5 Hyperlipidemia, unspecified; I25.2 Old myocardial infarction; I48.91 Unspecified atrial fibrillation; I25.10 Atherosclerotic heart disease of native coronary artery without angina pectoris; K21.9 Gastro-esophageal reflux disease without esophagitis; M19.90 Unspecified osteoarthritis, unspecified site; Z86.73 Personal history of transient ischemic attack (TIA), and cerebral infarction without residual deficits; Z86.711 Personal history of pulmonary embolism; Z86.718 Personal history of other venous thrombosis and embolism; Z79.82 Long term (current) use of aspirin; Z79.01 Long term (current) use of anticoagulants; W18.30XA Fall on same level, unspecified, initial encounter
CPT/HCPCS: 99283

== ENCOUNTER → 2021-03-24 | Outpatient (CLI) | payer MEDICARE, BC ==
[2021-03-24 19:38] LABS: Albumin/Globulin Ratio 1.43 (1.60-3.17); Anion Gap 11.6 mmol/L (4.00-12.00); BUN/Creat Ratio 26.15 Ratio (12.00-20.00); Calcium 10.4 mg/dL (8.7-10.3); Carbon Dioxide 27.4 mmol/L (21.6-31.8); Globulin 2.8 g/dL (1.6-3.3); Non-African American GFR(CKD) 37.1 (60.0-200.0); Potassium 4.6 mmol/L (3.5-5.5); Total Bilirubin 0.7 mg/dL (0.3-1.2); Total Protein 6.8 g/dL (6.2-8.2)
== END | disposition home or self-care (01) ==
LOC: LABWHC1 11:48
PROVIDERS: ATTEND Internal Medicine Interventional Cardiology
DX: I48.11 Longstanding persistent atrial fibrillation (principal)
CPT/HCPCS: 36415; 80053; 84443

== ENCOUNTER → 2021-05-01 | Outpatient (CLI) | payer MEDICARE, BC ==
--- NOTE | 2021-05-01 13:28 | XR ---
EXAMINATION TYPE: XR chest 2V DATE OF EXAM: 05/01/2021 COMPARISON: 02/18/2021 HISTORY: Shortness of breath TECHNIQUE: Frontal and lateral views of the chest are obtained. FINDINGS: Scattered senescent parenchymal changes noted. Hyperinflation compatible with COPD. No evidence for infiltrate. No evidence for atelectasis. Heart size is stable. Thoracic aortic stent is in place. Mediastinal structures are stable and grossly unremarkable. No evidence for hilar prominence. Degenerative changes dorsal spine. IMPRESSION: 1. No evidence for acute pulmonary disease.
== END | disposition home or self-care (01) ==
LOC: RADXRMAIN 12:55
PROVIDERS: ATTEND Nurse Practitioner Adult Health
DX: R06.02 Shortness of breath (principal)
CPT/HCPCS: 71046

== ENCOUNTER → 2021-05-21 | Outpatient (CLI) | payer MEDICARE, BC ==
--- NOTE | 2021-05-22 09:21 | NM ---
EXAMINATION TYPE: NM bone scan whole body DATE OF EXAM: 05/21/2021 COMPARISON: Whole body CT February 26, 2021 HISTORY: Other myelodysplastic syndrome. Low back pain for 2 years. Falling injury 2-3 weeks ago with right-sided rib pain per patient. Delayed whole-body scanning was performed following the injection of 23.6 mCi Tc 99m MDP. Images acq uired 3 hours post injection. Whole body images in anterior and posterior projection along with addit ional spot images of the thorax are acquired. FINDINGS: There is increased radiotracer uptake corresponding to healing subacute fractures of the lateral righ t ribs with involvement from the second through 10th ribs. This correlates with x-ray May 01, 2021 , traumatic history and/or right-sided pain at that time was not given. Mild symmetric uptake bilateral sternoclavicular joints presumed degenerative in etiology. No additio nal areas of abnormal suspicious radiotracer uptake. Normal excretion noted. IMPRESSION: As above.
== END | disposition home or self-care (01) ==
LOC: RADNMMAIN 11:43
PROVIDERS: ATTEND Internal Medicine Hematology & Oncology
DX: D46.9 Myelodysplastic syndrome, unspecified (principal)
CPT/HCPCS: 78306; A9503

== ENCOUNTER → 2021-06-05 | Outpatient (CLI) | payer MEDICARE, BC ==
[2021-06-06 01:23] LABS: African American GFR (CKD) 47.9 (60.0-200.0); Albumin 4.3 g/dL (3.8-4.9); Albumin/Globulin Ratio 1.39 (1.60-3.17); Anion Gap 13.6 mmol/L (4.00-12.00); BUN/Creat Ratio 30.42 Ratio (12.00-20.00); Blood Urea Nitrogen 36.2 mg/dL (9.0-27.0); Calcium 10.6 mg/dL (8.7-10.3); Carbon Dioxide 24.5 mmol/L (21.6-31.8); Globulin 3.1 g/dL (1.6-3.3); Non-African American GFR(CKD) 41.3 (60.0-200.0); Potassium 4.7 mmol/L (3.5-5.5); Total Bilirubin 0.6 mg/dL (0.30-1.20); Total Protein 7.4 g/dL (6.2-8.2)
== END | disposition home or self-care (01) ==
LOC: LABWHC1 11:27
PROVIDERS: ATTEND Nurse Practitioner Adult Health
DX: I42.8 Other cardiomyopathies (principal); N18.9 Chronic kidney disease, unspecified
CPT/HCPCS: 36415; 80053; 83880

== ENCOUNTER → 2021-08-12 | Outpatient (CLI) | payer MEDICARE, BC ==
[2021-08-12 16:15] LABS: Basophils # (A) 0.01 X 10*3/uL (0.00-0.10); Basophils % (A) 0.3 %; Eosinophils # (A) 0.08 X 10*3/uL (0.04-0.35); Eosinophils % (A) 2.6 %; HCT 34.5 % (37.2-46.3); HGB 10.7 g/dL (12.0-15.0); Lymphocytes # (A) 1.17 X 10*3/uL (0.90-5.00); Lymphocytes % (A) 38.6 %; MCH 31.8 pg (27.0-32.0); MCV 102.4 fL (80.0-97.0); Mean Platelet Volume 11.5 fL (9.5-12.2); Monocytes # (A) 0.26 X 10*3/uL (0.20-1.00); Monocytes % (A) 8.6 %; Neutrophils % (A) 49.6 %; Platelet Count 88 X 10*3/uL (140-440); RBC 3.37 X 10*6/uL (4.10-5.20); RDW 16.4 % (11.5-14.5); WBC 3.03 X 10*3/uL (4.50-10.00)
[2021-08-12 18:56] LABS: African American GFR (CKD) 47.4 (60.0-200.0); Albumin 3.9 g/dL (3.8-4.9); Albumin/Globulin Ratio 1.32 (1.60-3.17); Anion Gap 18.1 mmol/L (10.00-18.00); Calcium 9.9 mg/dL (8.7-10.3); Non-African American GFR(CKD) 40.9 (60.0-200.0); Potassium 4.1 mmol/L (3.5-5.5); Total Bilirubin 0.9 mg/dL (0.30-1.20); Total Protein 6.9 g/dL (6.2-8.2)
[2021-08-12 19:00] LABS: Erythrocyte Sedimentation Rate 20 mm/Hr (0-30)
== END | disposition home or self-care (01) ==
LOC: LABWHC1 08:32
PROVIDERS: ATTEND Nurse Practitioner Adult Health
DX: L95.9 Vasculitis limited to the skin, unspecified (principal); N18.9 Chronic kidney disease, unspecified
CPT/HCPCS: 36415; 80053; 85025; 85652

== ENCOUNTER 2021-08-16 12:09 | Inpatient (IN) | payer MEDICARE, BC ==
[2021-08-16] MEDS ORDERED: NITROGLYCERIN OINT 1 INCH/GM PACKET TOPICAL STA (12:53)
--- NOTE | 2021-08-16 12:56 | ED ---
General Adult HPI - General Chief complaint: Chest Pain Stated complaint: chest pain, SOB Time Seen by Provider: 08/16/21 12:35 Source: patient, family, RN notes reviewed Mode of arrival: ambulatory Limitations: no limitations - History of Present Illness Initial comments: Patient is a pleasant 86-year-old female presenting to the emergency department with concerns for chest discomfort and dyspnea. Onset of symptoms was last night. Chest discomfort feels like pressure and is rated 6/10. Patient has associated dyspnea. Dyspnea worsens with lying flat as well as exertion. Patient does have history of similar symptoms previously associated with congestive heart failure. Patient did go to her doctor's office who recommended she be evaluated in the emergency department. Patient does have some mild leg swelling. No calf pain. - Related Data Home Medications Medication Instructions Recorded Confirmed amLODIPine BESYLATE [Amlodipine 2.5 mg PO DAILY 09/30/15 03/02/21 Besylate] Levothyroxine Sodium [Synthroid] 100 mcg PO DAILY@0700 09/10/16 03/02/21 Metoprolol Succinate [Toprol XL] 100 mg PO DAILY 09/10/16 03/02/21 Isosorbide Mononitrate ER [Imdur] 60 mg PO DAILY 09/28/19 03/02/21 Melatonin 5 mg PO HS PRN 09/28/19 03/02/21 rOPINIRole HCL [Requip] 0.25 mg PO HS PRN 09/28/19 03/02/21 Apixaban [Eliquis] 2.5 mg PO BID@0800,2000 02/16/21 03/02/21 Cinacalcet [Sensipar] 30 mg PO MOFR 02/16/21 03/02/21 Ergocalciferol (Vitamin D2) 1,250 mcg PO Q30D 02/16/21 03/02/21 [Drisdol (50,000 Iu)] Loperamide [Imodium] 2 mg PO TID PRN 02/16/21 03/02/21 Magnesium Oxide [Mag-Ox] 400 mg PO DAILY 02/16/21 03/02/21 Aspirin 81 mg PO HS 03/02/21 03/02/21 Atorvastatin Calcium [Lipitor] 20 mg PO DAILY 03/02/21 03/02/21 Previous Rx's Medication Instructions Recorded Furosemide [Lasix] 20 mg PO DAILY tab 02/20/21 Losartan [Cozaar] 50 mg PO DAILY #30 tab 02/20/21 Acetaminophen-Codeine 300-30mg 1 tab PO Q8H PRN #10 tablet 02/26/21 [Tylenol #3] Lidocaine 5% Patch [Lidoderm 5% 1 patch TOPICAL DAILY PRN 5 Days 02/26/21 Patch] #5 patch Acetaminophen-Codeine 300-30mg 1 tab PO Q6HR PRN 3 Days #12 tablet 03/02/21 [Tylenol #3] Allergies Allergy/AdvReac Type Severity Reaction Status Date / Time black pepper Allergy Severe Anaphylaxis Verified 08/16/21 12:18 Influenza Virus Vaccines Allergy Severe Unknown Verified 08/16/21 12:18 peanut Allergy Severe Anaphylaxis Verified 08/16/21 12:18 prednisone Allergy Severe Dyspnea Verified 08/16/21 12:18 atropine [From ] Allergy Unknown Verified 08/16/21 12:18 chocolate flavor Allergy Itching Verified 08/16/21 12:18 hyoscyamine [From ] Allergy Unknown Verified 08/16/21 12:18 Iodinated Contrast Media Allergy Swelling Verified 08/16/21 12:18 [Iodinated Contrast Media - IV Dye] phenobarbital [From ] Allergy Unknown Verified 08/16/21 12:18 propoxyphene [From [place]von] Allergy Unknown Verified 08/16/21 12:18 scopolamine [From ] Allergy Unknown Verified 08/16/21 12:18 Sulfa (Sulfonamide Allergy Rash/Hives Verified 08/16/21 12:18 Antibiotics) venom-honey bee Allergy Unknown Verified 08/16/21 12:18 [bee venom (honey bee)] acetaminophen [From [place]] AdvReac Hallucinati Verified 08/16/21 12:18 ons belladonna alkaloids AdvReac Unknown Verified 08/16/21 12:18 hydrocodone [From [place]] AdvReac Hallucinati Verified 08/16/21 12:18 ons simvastatin [From Zocor] AdvReac WEAKNESS Verified 08/16/21 12:18 SMELT Allergy Itching Uncoded 08/16/21 12:18 Review of Systems ROS Statement: Those systems with pertinent positive or pertinent negative responses have been documented in the HPI. ROS Other: All systems not noted in ROS Statement are negative. Constitutional: Denies: fever Eyes: Denies: eye pain ENT: Denies: ear pain Respiratory: Reports: as per HPI, dyspnea Cardiovascular: Reports: chest pain, dyspnea on exertion, orthopnea, edema Endocrine: Denies: fatigue Gastrointestinal: Denies: abdominal pain Genitourinary: Denies: dysuria Musculoskeletal: Denies: back pain Skin: Denies: rash Neurological: Denies: weakness Past Medical History Past Medical History: Atrial Fibrillation, Blood Disorder, Coronary Artery Disease (CAD), Chest Pain / Angina, Heart Failure, CVA/TIA, Deep Vein Thrombosis (DVT), Eye Disorder, GERD/Reflux, Hyperlipidemia, Hypertension, Myocardial Infarction ([place]), Osteoarthritis (OA), Pneumonia, Syncope, Thyroid Disorder, Vascular Disorder Additional Past Medical History / Comment(s): Pt recently diagnosed with afib,. 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 DVTs multiple in R leg and once in L arm, PEs-showering pulmonary embolisms bilateral lungs, chronic thrombophlebitis, coronary blockages, leaky cardiac valves, AAA thoracic and abdominal both stented, duodenal ulcer, hiatal hernia, diverticular dx, colitis, IBS, H. Pylori, frequent diarrhea, chronic anemia, bronchitis, pneumonias, macular degeneration bilaterally, syncopal episodes. Last Myocardial Infarction Date:: UNKNOWN History of Any Multi-Drug Resistant Organisms: None Reported Past Surgical History: Appendectomy, Cholecystectomy, Heart Catheterization, H ysterectomy Additional Past Surgical History / Comment(s): 09/2015 thoracic aortic aneurysm stent, 07/2017 thoracic aortic aneurysm stent leaking and another stent placed as well as abdominal aortic aneurysm stented, cardiac caths, green field filter, bone marrow aspiration, exploratory lap for adhesions, EGD/colonoscopies with benign polypectomy, hemorrhoidectomy, R leg vein stripping. Past Anesthesia/Blood Transfusion Reactions: Blood Transfusion Reaction Additional Past Anesthesia/Blood Transfusion Reaction / Comment(s): Heart failure/fluid overload Past Psychological History: No Psychological Hx Reported Smoking Status: Never smoker, Unknown if ever smoked Past Alcohol Use History: None Reported Past Drug Use History: None Reported - Past Family History Father Family Medical History: Coronary Artery Disease (CAD), Myocardial Infarction ([place]) Mother Family Medical History: COPD, Coronary Artery Disease (CAD), Deep Vein Thro mbosis (DVT) Brother(s) Family Medical History: Coronary Artery Disease (CAD), Myocardial Infarction ([place]) Sister(s) Family Medical History: Cancer Additional Family Medical History / Comment(s): Uterine General Exam Limitations: no limitations General appearance: alert, in no apparent distress Head exam: Present: normocephalic Eye exam: Present: normal appearance Neck exam: Present: normal inspection Respiratory exam: Present: normal lung sounds bilaterally Cardiovascular Exam: Present: irregular rhythm GI/Abdominal exam: Present: soft. Absent: tenderness Extremities exam: Present: pedal edema (+1 bilateral). Absent: calf tenderness Neurological exam: Present: alert Psychiatric exam: Present: normal affect, normal mood Skin exam: Present: normal color Course Vital Signs 08/16/21 08/16/21 12:14 13:15 Temperature 97.8 F Pulse Rate 88 79 Respiratory 18 20 Rate Blood Pressure 170/94 188/107 O2 Sat by Pulse 96 98 Oximetry EKG Findings - EKG Comments: EKG Findings:: A. fib with rate of 83. QRS 164. QT 446. QTc 524. Left axis. Left bundle branch block. Nonspecific ST-T. Medical Decision Making - Medical Decision Making Patient reevaluated and resting comfortably in bed, minimally improved. Patient and family updated on results and plan. Case discussed with Dr. Salas, who will admit covering Dr. baker. - Lab Data Result diagrams: 08/16/21 12:45 08/16/21 12:45 Lab Results 08/16/21 08/16/21 08/16/21 Range/Units 12:45 12:45 12:45 WBC 2.5 L (3.8-10.6) k/uL RBC 3.46 L (3.80-5.40) m/uL Hgb 11.5 (11.4-16.0) gm/dL Hct 35.1 (34.0-46.0) % MCV 101.6 H (80.0-100.0) fL MCH 33.2 (25.0-35.0) pg MCHC 32.7 (31.0-37.0) g/dL RDW 17.2 H (11.5-15.5) % Plt Count 90 L (150-450) k/uL MPV 9.4 Neutrophils % 63 % Lymphocytes % 32 % Monocytes % 2 % Eosinophils % 1 % Basophils % 1 % Neutrophils # 1.6 (1.3-7.7) k/uL Lymphocytes # 0.8 L (1.0-4.8) k/uL Monocytes # 0.1 (0-1.0) k/uL Eosinophils # 0.0 (0-0.7) k/uL Basophils # 0.0 (0-0.2) k/uL Manual Slide Review Performed Anisocytosis Slight Macrocytosis Moderate PT 12.1 H (9.0-12.0) sec INR 1.2 H (<1.2) APTT 22.1 (22.0-30.0) sec Sodium 138 (137-145) mmol/L Potassium 4.6 (3.5-5.1) mmol/L Chloride 100 (98-107) mmol/L Carbon Dioxide 31 H (22-30) mmol/L Anion Gap 7 mmol/L BUN 31 H (7-17) mg/dL Creatinine 1.10 H (0.52-1.04) mg/dL Est GFR (CKD-EPI)AfAm 53 (>60 ml/min/1.73 sqM) Est GFR (CKD-EPI)NonAf 46 (>60 ml/min/1.73 sqM) Glucose 104 H (74-99) mg/dL Calcium 9.9 (8.4-10.2) mg/dL Total Bilirubin 2.2 H (0.2-1.3) mg/dL AST 24 (14-36) U/L ALT 13 (4-34) U/L Alkaline Phosphatase 73 (38-126) U/L Troponin I (0.000-0.034) ng/mL NT-Pro-B Natriuret Pep pg/mL Total Protein 7.8 (6.3-8.2) g/dL Albumin 4.1 (3.5-5.0) g/dL 08/16/21 08/16/21 Range/Units 12:45 12:45 WBC (3.8-10.6) k/uL RBC (3.80-5.40) m/uL Hgb (11.4-16.0) gm/dL Hct (34.0-46.0) % MCV (80.0-100.0) fL MCH (25.0-35.0) pg MCHC (31.0-37.0) g/dL RDW (11.5-15.5) % Plt Count (150-450) k/uL MPV Neutrophils % % Lymphocytes % % Monocytes % % Eosinophils % % Basophils % % Neutrophils # (1.3-7.7) k/uL Lymphocytes # (1.0-4.8) k/uL Monocytes # (0-1.0) k/uL Eosinophils # (0-0.7) k/uL Basophils # (0-0.2) k/uL Manual Slide Review Anisocytosis Macrocytosis PT (9.0-12.0) sec INR (<1.2) APTT (22.0-30.0) sec Sodium (137-145) mmol/L Potassium (3.5-5.1) mmol/L Chloride (98-107) mmol/L Carbon Dioxide (22-30) mmol/L Anion Gap mmol/L BUN (7-17) mg/dL Creatinine (0.52-1.04) mg/dL Est GFR (CKD-EPI)AfAm (>60 ml/min/1.73 sqM) Est GFR (CKD-EPI)NonAf (>60 ml/min/1.73 sqM) Glucose (74-99) mg/dL Calcium (8.4-10.2) mg/dL Total Bilirubin (0.2-1.3) mg/dL AST (14-36) U/L ALT (4-34) U/L Alkaline Phosphatase (38-126) U/L Troponin I 0.021 (0.000-0.034) ng/mL NT-Pro-B Natriuret Pep 86054 pg/mL Total Protein (6.3-8.2) g/dL Albumin (3.5-5.0) g/dL - Radiology Data Radiology results: image reviewed (Chest x-ray shows aortic stent graft. Difficult to exclude basilar effusions, cardiomegally) Disposition Clinical Impression: Congestive heart failure, Chest pain Disposition: ADMITTED IP TO THIS HOSP Is patient prescribed a controlled substance at d/c from ED?: No Referrals: Fabian Kay MD [Primary Care Provider] - 1-2 days Decision Time: 14:32
[2021-08-16 13:01] LABS: Anisocytosis Slight; Basophils % (A) 1 %; Eosinophils % (A) 1 %; HCT 35.1 % (34.0-46.0); HGB 11.5 gm/dL (11.4-16.0); Lymphocytes # (A) 0.8 k/uL (1.0-4.8); Lymphocytes % (A) 32 %; MCH 33.2 pg (25.0-35.0); MCHC 32.7 g/dL (31.0-37.0); MCV 101.6 fL (80.0-100.0); Macrocytosis Moderate; Mean Platelet Volume 9.4; Monocytes # (A) 0.1 k/uL (0-1.0); Monocytes % (A) 2 %; Neutrophils # (A) 1.6 k/uL (1.3-7.7); Neutrophils % (A) 63 %; RBC 3.46 m/uL (3.80-5.40); RDW 17.2 % (11.5-15.5); WBC 2.5 k/uL (3.8-10.6)
[2021-08-16 13:19] LABS: Albumin 4.1 g/dL (3.5-5.0); Calcium 9.9 mg/dL (8.4-10.2); Total Bilirubin 2.2 mg/dL (0.2-1.3); Total Protein 7.8 g/dL (6.3-8.2)
[2021-08-16 13:27] LABS: INR 1.2 (<1.2); Partial Thromboplastin Time 22.1 sec (22.0-30.0); Prothrombin Time 12.1 sec (9.0-12.0)
[2021-08-16 13:32] LABS: Potassium 4.6 mmol/L (3.5-5.1)
--- NOTE | 2021-08-16 13:48 | XR ---
EXAMINATION TYPE: XR chest 2V DATE OF EXAM: 08/16/2021 COMPARISON: Chest x-ray 05/01/2021 HISTORY: Difficulty breathing TECHNIQUE: Frontal and lateral views of the chest are obtained. FINDINGS: There is suboptimal visualization of the costophrenic angles, there is overlying soft tiss ue. No evident pneumothorax. Aortic stent graft is in place as on prior. There is aortic aneurysm pre sent as on prior. There are overlying leads. The cardiac silhouette size is enlarged as on prior. Ijeoma ntration of right hemidiaphragm again noted. The osseous structures are intact. IMPRESSION: Cardiomegaly, postprocedural changes for enteric aneurysm. Difficult to exclude basilar effusions, atelectasis, correlate to exclude pneumonia
[2021-08-16 13:49] LABS: Platelet Count 90 k/uL (150-450)
[2021-08-16] MEDS ORDERED: ASPIRIN 325 MG TAB PO STA (14:32)
[2021-08-16] MEDS: FUROSEMIDE 10 MG/ML 4 ML VIAL IV SCH ×2 (15:27→23:42)
[2021-08-16] MEDS ORDERED: MELATONIN 5 MG TABLET PO PRN (16:26)
[2021-08-16] MEDS ORDERED: LOPERAMIDE 2 MG CAP PO PRN (16:26)
--- NOTE | 2021-08-16 19:41 | P.HPIM ---
History of Present Illness This is a pleasant 86 years old female with past medical history of Atrial Fibrillation, on Eliquis, Coronary Artery Disease on baby aspirin and metoprolol, Heart Failure, CVA/TIA, Deep Vein Thrombosis and pulmonary embolism, GERD, Hyperlipidemia, Hypertension, Osteoarthritis hypothyroidism, MDS diagnosed in 2016 and takes oral chemo, aortic abdominal aneurysm, duodenal ulcer, colitis and irritable bowel syndrome. She is a patient of Dr. De La Rosa, She was sent from his office for chest pain, dyspnea and high blood pressure Patient and her granddaughter bedside provided information. Patient states that she's been having dyspnea for the last 2 days but yesterday to become more severe associated with orthopnea and paroxysmal nocturnal dyspnea also she felt like something sitting on her chest felt like pressure which is relieved after she kept emergency room and received treatment for example for her high blood pressure. Her chest pain she had it last night and this morning but it is gone now. No coughing. No abdominal pain or nausea vomiting. No diarrhea. No urinary complaints. No headache or weakness or numbness or dizziness. No history of smoking, alcohol or illicit drugs She has history of cardiac cath about 4 years ago status post stent placement. Her graduate student is Dr. Millan Also she has history of aortic aneurysm repair also about 4 years ago She is not on home oxygen Vital signs stable, blood pressure was elevated on admission 188/107 currently is 158/83. She is saturating 97% on 2 L Labs showing WBC 2.5, platelet is 90. Hemoglobin normal at 11.5 INR is 1.2. Sodium 138. Creatinine 1.1 which is at baseline. [place] [address] EKG showed atrial fibrillation at [address]-T changes. Echocardiogram on 02/24: Ejection fraction of 35-40% with septal hypokinesia and moderate to severe mitral regurgitation and moderate tricuspid regurgitation with mild pulmonary hypertension Chest x-ray: Cardiomegaly, post procedural changes for enteric aneurysm. Difficult to exclude basilar effusion, atelectasis, correlate to exclude pneumonia In the emergency room show a started on aspirin, Lasix 40 mg every 8 hours Review of Systems CONSTITUTIONAL: No fever, no malaise, no fatigue. HEENT: No recent visual problems or hearing problems. Denied any sore throat. CARDIOVASCULAR: no palpitations, no syncope. PULMONARY: No chest wall tenderness, no cough, no hemoptysis. GASTROINTESTINAL: No diarrhea, no nausea, no vomiting, no abdominal pain. Normoactive bowel sounds. NEUROLOGICAL: No headaches, no weakness, no numbness. HEMATOLOGICAL: Denies any bleeding or petechiae. GENITOURINARY: Denies any burning micturition, frequency, or urgency. MUSCULOSKELETAL/RHEUMATOLOGICAL: Denies any joint pain, swelling, or any muscle pain. ENDOCRINE: Denies any polyuria or polydipsia. Past Medical History Past Medical History: Atrial Fibrillation, Blood Disorder, Coronary Artery Dise ase (CAD), Chest Pain / Angina, Heart Failure, CVA/TIA, Deep Vein Thrombosis (DVT), Eye Disorder, GERD/Reflux, Hyperlipidemia, Hypertension, Myocardial Infarction ([place]), Osteoarthritis (OA), Pneumonia, Syncope, Thyroid Disorder, Vascular Disorder Additional Past Medical History / Comment(s): Pt recently diagnosed with afib,. 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 DVTs multiple in R leg and once in L arm, PEs-showering pulmonary embolisms bilateral lungs, chronic t hrombophlebitis, coronary blockages, leaky cardiac valves, AAA thoracic and abdominal both stented, duodenal ulcer, hiatal hernia, diverticular dx, colitis, IBS, H. Pylori, frequent diarrhea, chronic anemia, bronchitis, pneumonias, macular degeneration bilaterally, syncopal episodes. Last Myocardial Infarction Date:: UNKNOWN History of Any Multi-Drug Resistant Organisms: None Reported Past Surgical History: Appendectomy, Cholecystectomy, Heart Catheterization, Hysterectomy Additional Past Surgical History / Comment(s): 09/2015 thoracic aortic aneurysm stent, 07/2017 thoracic aortic aneurysm stent leaking and another stent placed as well as abdominal aortic aneurysm stented, cardiac caths, green field filter, bone marrow aspiration, exploratory lap for adhesions, EGD/colonoscopies with benign polypectomy, hemorrhoidectomy, R leg vein stripping. Past Anesthesia/Blood Transfusion Reactions: Blood Transfusion Reaction Additional Past Anesthesia/Blood Transfusion Reaction / Comment(s): Heart failure/fluid overload Past Psychological History: No Psychological Hx Reported Smoking Status: Never smoker, Unknown if ever smoked Past Alcohol Use History: None Reported Past Drug Use History: None Reported - Past Family History Father Family Medical History: Coronary Artery Disease (CAD), Myocardial Infarction (CT) Mother Family Medical History: COPD, Coronary Artery Disease (CAD), Deep Vein Thrombosis (DVT) Brother(s) Family Medical History: Coronary Artery Disease (CAD), Myocardial Infarction (CT) Sister(s) Family Medical History: Cancer Additional Family Medical History / Comment(s): Uterine Medications and Allergies Home Medications Medication Instructions Recorded Confirmed Type Levothyroxine Sodium [Synthroid] 100 mcg PO DAILY@0600 09/10/16 08/16/21 History Metoprolol Succinate [Toprol XL] 100 mg PO DAILY@0700 09/10/16 08/16/21 History Isosorbide Mononitrate ER [Imdur] 60 mg PO DAILY@0709/28/19 08/16/21 History Melatonin 5 mg PO HS PRN 09/28/19 08/16/21 History rOPINIRole HCL [Requip] 0.25 mg PO HS 09/28/19 08/16/21 History Apixaban [Eliquis] 2.5 mg PO BID@08,199902/16/21 08/16/21 History Cinacalcet [Sensipar] 30 mg PO MOFR@0702/16/21 08/16/21 History Ergocalciferol (Vitamin D2) 1,250 mcg PO Q30D 02/16/21 08/16/21 History [Drisdol (50,000 Iu)] Loperamide [Imodium] 2 mg PO TID PRN 02/16/21 08/16/21 History Aspirin 81 mg PO HS 03/02/21 08/16/21 History Atorvastatin Calcium [Lipitor] 20 mg PO DAILY@0700 03/02/21 08/16/21 History Furosemide [Lasix] 20 mg PO DAILY 08/16/21 08/16/21 History Furosemide [Lasix] 20 mg PO DAILY PRN 08/16/21 08/16/21 History Allergies Allergy/AdvReac Type Severity Reaction Status Date / Time black pepper Allergy Severe Anaphylaxis Verified 08/16/21 15:03 Influenza Virus Vaccines Allergy Severe Unknown Verified 08/16/21 15:03 peanut Allergy Severe Anaphylaxis Verified 08/16/21 15:03 prednisone Allergy Severe Dyspnea Verified 08/16/21 15:03 atropine [From ] Allergy Unknown Verified 08/16/21 15:03 chocolate flavor Allergy Itching Verified 08/16/21 15:03 hyoscyamine [From ] Allergy Unknown Verified 08/16/21 15:03 Iodinated Contrast Media Allergy Swelling Verified 08/16/21 15:03 [Iodinated Contrast Media - IV Dye] phenobarbital [From ] Allergy Unknown Verified 08/16/21 15:03 propoxyphene [From [place]] Allergy Unknown Verified 08/16/21 15:03 scopolamine [From ] Allergy Unknown Verified 08/16/21 15:03 Sulfa (Sulfonamide Allergy Rash/Hives Verified 08/16/21 15:03 Antibiotics) venom-honey bee Allergy Unknown Verified 08/16/21 15:03 [bee venom (honey bee)] acetaminophen [From [place]] AdvReac Hallucinati Verified 08/16/21 15:03 ons belladonna alkaloids AdvReac Unknown Verified 08/16/21 15:03 hydrocodone [From [place]] AdvReac Hallucinati Verified 08/16/21 15:03 ons simvastatin [From Zocor] AdvReac WEAKNESS Verified 08/16/21 15:03 SMELT Allergy Itching Uncoded 08/16/21 15:03 Physical Exam Vitals: Vital Signs Temp Pulse Resp BP Pulse Ox 08/16/21 15:32 75 20 158/83 97 08/16/21 13:15 79 20 188/107 98 08/16/21 12:14 97.8 F 88 18 170/94 96 Intake and Output 08/16/21 08/16/21 08/16/21 06:59 14:59 22:59 Other: Weight 70.76 kg GENERAL: The patient is alert and oriented x3, not in any acute distress. Well developed, well nourished. HEENT: Pupils are round and equally reacting to light. EOMI. No scleral icterus. No conjunctival pallor. Normocephalic, atraumatic. No pharyngeal erythema. No thyromegaly. CARDIOVASCULAR: S1 and S2 present. No murmurs, rubs, or gallops. -PULMONARY: Chest is clear to auscultation, no wheezing. Bilateral basal c repitation. ABDOMEN: Soft, nontender, nondistended, normoactive bowel sounds. No palpable organomegaly. MUSCULOSKELETAL: No joint swelling or deformity. -EXTREMITIES: No cyanosis, clubbing,. Mild bilateral pitting leg edema. NEUROLOGICAL: Gross neurological examination did not reveal any focal deficits. SKIN: No rashes. No petechiae Results CBC & Chem 7: 08/16/21 12:45 12 12:45 Labs: Abnormal Lab Results - Last 24 Hours (Table) 08/16/21 08/16/21 08/16/21 Range/Units 12:45 12:45 12:45 WBC 2.5 L (3.8-10.6) k/uL RBC 3.46 L (3.80-5.40) m/uL MCV 101.6 H (80.0-100.0) fL RDW 17.2 H (11.5-15.5) % Plt Count 90 L (150-450) k/uL Lymphocytes # 0.8 L (1.0-4.8) k/uL PT 12.1 H (9.0-12.0) sec INR 1.2 H (<1.2) Carbon Dioxide 31 H (22-30) mmol/L BUN 31 H (7-17) mg/dL Creatinine 1.10 H (0.52-1.04) mg/dL Glucose 104 H (74-99) mg/dL Total Bilirubin 2.2 H (0.2-1.3) mg/dL Assessment and Plan Assessment: Acute on chronic Chronic systolic CHF with EF 35-40% Chest pain, rule out cardiac causes Moderate to severe mitral regurgitation, moderate tricuspid regurgitation Mild bicytopenia with leukopenia and thrombocytopenia History of MDS hypertension chronic kidney disease, stage III Hyperlipidemia Paroxysmal atrial fibrillation on Eliquis 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 Continue same treatment. Continue with symptomatic treatment. Resume home medication. Monitor lytes and vitals. DVT and GI prophylaxis. Further recommendations depends on the clinical course of the patient DVT prophyla Liquids GI Prophylaxis: Pepcid PT/OT: Pending Prognosis is guarded
[2021-08-16] MEDS: NITROGLYCERIN OINT 1 INCH/GM PACKET TOPICAL SCH ×2 (19:42→23:42)
[2021-08-16] MEDS: APIXABAN 2.5 MG TABLET PO SCH (19:43)
[2021-08-16] MEDS ORDERED: ASPIRIN 81 MG PO SCH (21:00)
[2021-08-17] MEDS: LEVOTHYROXINE 100 MCG TAB PO SCH (06:17)
--- NOTE | 2021-08-17 09:42 | P.CRDCN ---
History of Present Illness Consult date: 08/17/21 Chief complaint: Shortness of breath History of present illness: The patient is an 86-year-old female patient requested to see for further evalua tion off shortness of breath as well as heart racing. She does have an extensive cardiovascular history consistent of history of stroke in 2019 and also non-ischemic cardiomyopathy as well as valvular heart disease with mitral and tricuspid regurgitation and also permanent atrial fibrillation on oral anticoagulation as well as hypertension and dyslipidemia. The patient somewhat is a poor historian but she has not been feeding well for the last few days patient has been experiencing symptoms of increasing shortness of breath without any chest pain or chest discomfort and without any dizziness or lightheadedness or presyncope or syncope. She developed also lower extremities edema. When she presented to the hospital her pressure was elevated. She stated that she has been compliant with her medications as well as with her diet. She underwent an EKG which showed underlying atrial fibrillation with LBBB. The chest x-ray seems to be consistent with heart failure. And the proBNP came in to be elevated at 13,000. The patient initially went and saw her primary care physician who referred the patient to the hospital for further evaluation. Beside the above extensive medical history she has she has also thoracic aortic stent graft. Previous echocardiogram from 2020 revealed impaired LV function was EF between 35-40% with moderate to severe mitral and tricuspid regurgitation and mild pulmonary hypertension. Past Medical History Past Medical History: Atrial Fibrillation, Blood Disorder, Coronary Artery Disease (CAD), Chest Pain / Angina, Heart Failure, CVA/TIA, Deep Vein Thrombosis (DVT), Eye Disorder, GERD/Reflux, Hyperlipidemia, Hypertension, Myocardial Infarction (VT), Osteoarthritis (OA), Pneumonia, Syncope, Thyroid Disorder, Vascular Disorder Additional Past Medical History / Comment(s): Pt hx afib,. 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 DVTs multiple in R leg and once in L arm, PEs-showe ring pulmonary embolisms bilateral lungs, chronic thrombophlebitis, coronary blockages, leaky cardiac valves, AAA thoracic and abdominal both stented, duodenal ulcer, hiatal hernia, diverticular dx, colitis, IBS, H. Pylori, frequent diarrhea, chronic anemia, bronchitis, pneumonias, macular degeneration bilaterally, syncopal episodes. Last Myocardial Infarction Date:: UNKNOWN History of Any Multi-Drug Resistant Organisms: None Reported Past Surgical History: Appendectomy, Cholecystectomy, Heart Catheterization, Hysterectomy Additional Past Surgical History / Comment(s): 09/2015 thoracic aortic aneurysm stent, 07/2017 thoracic aortic aneurysm stent leaking and another stent placed as well as abdominal aortic aneurysm stented, cardiac caths, green field filter, bone marrow aspiration, exploratory lap for adhesions, EGD/colonoscopies with benign polypectomy, hemorrhoidectomy, R leg vein stripping. Past Anesthesia/Blood Transfusion Reactions: Blood Transfusion Reaction Additional Past Anesthesia/Blood Transfusion Reaction / Comment(s): Heart failure/fluid overload Past Psychological History: No Psychological Hx Reported Additional Psychological History / Comment(s): 3 years ago lives at home alone Smoking Status: Never smoker, Unknown if ever smoked Past Alcohol Use History: None Reported Past Drug Use History: None Reported - Past Family History Father Family Medical History: Coronary Artery Disease (CAD), Myocardial Infarction (VT) Mother Family Medical History: COPD, Coronary Artery Disease (CAD), Deep Vein Thrombosis (DVT) Brother(s) Family Medical History: Coronary Artery Disease (CAD), Myocardial Infarction (VT) Sister(s) Family Medical History: Cancer Additional Family Medical History / Comment(s): Uterine Medications and Allergies Home Medications Medication Instructions Recorded Confirmed Type Levothyroxine Sodium [Synthroid] 100 mcg PO DAILY@0600 09/10/16 08/16/21 History Metoprolol Succinate [Toprol XL] 100 mg PO DAILY@0700 09/10/16 08/16/21 History Isosorbide Mononitrate ER [Imdur] 60 mg PO DAILY@0700 09/28/19 08/16/21 History Melatonin 5 mg PO HS PRN 09/28/19 08/16/21 History rOPINIRole HCL [Requip] 0.25 mg PO HS 09/28/19 08/16/21 History Apixaban [Eliquis] 2.5 mg PO BID@0800,199902/16/21 08/16/21 History Cinacalcet [Sensipar] 30 mg PO MOFR@0700 02/16/21 08/16/21 History Ergocalciferol (Vitamin D2) 1,250 mcg PO Q30D 02/16/21 08/16/21 History [Drisdol (50,000 Iu)] Loperamide [Imodium] 2 mg PO TID PRN 02/16/21 08/16/21 History Aspirin 81 mg PO HS 03/02/21 08/16/21 History Atorvastatin Calcium [Lipitor] 20 mg PO DAILY@0700 03/02/21 08/16/21 History Furosemide [Lasix] 20 mg PO DAILY 08/16/21 08/16/21 History Furosemide [Lasix] 20 mg PO DAILY PRN 08/16/21 08/16/21 History Allergies Allergy/AdvReac Type Severity Reaction Status Date / Time black pepper Allergy Severe Anaphylaxis Verified 08/16/21 15:03 Influenza Virus Vaccines Allergy Severe Unknown Verified 08/16/21 15:03 peanut Allergy Severe Anaphylaxis Verified 08/16/21 15:03 prednisone Allergy Severe Dyspnea Verified 08/16/21 15:03 atropine [From ] Allergy Unknown Verified 08/16/21 15:03 chocolate flavor Allergy Itching Verified 08/16/21 15:03 hyoscyamine [From ] Allergy Unknown Verified 08/16/21 15:03 Iodinated Contrast Media Allergy Swelling Verified 08/16/21 15:03 [Iodinated Contrast Media - IV Dye] phenobarbital [From ] Allergy Unknown Verified 08/16/21 15:03 propoxyphene [From [place]] Allergy Unknown Verified 08/16/21 15:03 scopolamine [From ] Allergy Unknown Verified 08/16/21 15:03 Sulfa (Sulfonamide Allergy Rash/Hives Verified 08/16/21 15:03 Antibiotics) venom-honey bee Allergy Unknown Verified 08/16/21 15:03 [bee venom (honey bee)] acetaminophen [From [place]] AdvReac Hallucinati Verified 08/16/21 15:03 ons belladonna alkaloids AdvReac Unknown Verified 08/16/21 15:03 hydrocodone [From [place]] AdvReac Hallucinati Verified 08/16/21 15:03 ons simvastatin [From Zocor] AdvReac WEAKNESS Verified 08/16/21 15:03 SMELT Allergy Itching Uncoded 08/16/21 15:03 Physical Exam Vitals: Vital Signs Temp Pulse Pulse Resp BP BP BP 08/17/21 07:00 97.6 F 66 16 181/70 08/17/21 01:25 97.8 F 66 20 169/84 08/16/21 20:00 76 08/16/21 19:32 97.5 F L 76 20 165/91 08/16/21 15:32 75 20 158/83 08/16/21 13:15 79 20 188/107 08/16/21 12:14 97.8 F 88 18 170/94 Pulse Ox 08/17/21 07:00 100 08/17/21 01:25 100 08/16/21 20:00 08/16/21 19:32 100 08/16/21 15:32 97 08/16/21 13:15 98 08/16/21 12:14 96 Intake and Output 08/16/21 08/17/21 08/17/21 22:59 06:59 14:59 Intake Total 30 180 Balance 30 180 Intake: Oral 30 180 Other: Voiding Method Toilet # Voids 3 2 # Bowel Movements 1 Weight 70.76 kg - Constitutional General appearance: no acute distress - Respiratory Respiratory: bilateral: diminished - Cardiovascular Rhythm: irregularly irregular Heart sounds: normal: S1, S2 Abnormal Heart Sounds: systolic murmur Results 08/16/21 12:45 08/16/21 12:45 Cardiac Enzymes 08/16/21 08/16/21 08/16/21 Range/Units 12:45 12:45 18:05 AST 24 (14-36) U/L Troponin I 0.021 0.020 (0.000-0.034) ng/mL 08/16/21 Range/Units 20:57 AST (14-36) U/L Troponin I 0.020 (0.000-0.034) ng/mL Coagulation 08/16/21 Range/Units 12:45 PT 12.1 H (9.0-12.0) sec APTT 22.1 (22.0-30.0) sec CBC 08/16/21 Range/Units 12:45 WBC 2.5 L (3.8-10.6) k/uL RBC 3.46 L (3.80-5.40) m/uL Hgb 11.5 (11.4-16.0) gm/dL Hct 35.1 (34.0-46.0) % Plt Count 90 L (150-450) k/uL Comprehensive Metabolic Panel 08/16/21 Range/Units 12:45 Sodium 138 (137-145) mmol/L Potassium 4.6 (3.5-5.1) mmol/L Chloride 100 (98-107) mmol/L Carbon Dioxide 31 H (22-30) mmol/L BUN 31 H (7-17) mg/dL Creatinine 1.10 H (0.52-1.04) mg/dL Glucose 104 H (74-99) mg/dL Calcium 9.9 (8.4-10.2) mg/dL AST 24 (14-36) U/L ALT 13 (4-34) U/L Alkaline Phosphatase 73 (38-126) U/L Total Protein 7.8 (6.3-8.2) g/dL Albumin 4.1 (3.5-5.0) g/dL Current Medications Generic Name Dose Route Start Last Admin Trade Name Freq PRN Reason Stop Dose Admin Amlodipine Besylate 5 mg 08/17/21 09:00 Amlodipine 5 Mg Tab PO DAILY [facility] Apixaban 2.5 mg 08/16/21 20:00 08/16/21 19:43 Apixaban 2.5 Mg Tablet PO 2.5 mg BID@08 [facility] Administration Protocol Aspirin 325 mg 08/17/21 09:00 Aspirin 325 Mg Tab PO DAILY [facility] Atorvastatin Calcium 20 mg 08/17/21 07:00 Atorvastatin 20 Mg Tab PO DAILY@07 [facility] Cinacalcet 30 mg 08/18/21 07:00 Cinacalcet 30 Mg Tab PO MOFR@0700 [facility] Furosemide 40 mg 08/16/21 15:00 08/16/21 23:42 Furosemide 10 Mg/Ml 4 Ml Vial IV 40 mg Q8H [facility] Administration Isosorbide Mononitrate 60 mg 08/17/21 07:00 Isosorbide Mononitrate Er 60 Mg Tab.Er.24h PO DAILY@0700 [facility] Levothyroxine Sodium 100 mcg 08/17/21 06:00 08/17/21 06:17 Levothyroxine 100 Mcg Tab PO 100 mcg DAILY@0600 [facility] Administration Loperamide HCl 2 mg 08/16/21 16:26 Loperamide 2 Mg Cap PO TID PRN Diarrhea Melatonin 5 mg 08/16/21 16:26 Melatonin 5 Mg Tablet PO HS PRN Insomnia Metoprolol Succinate 100 mg 08/17/21 07:00 Metoprolol Succinate (Er) 100 Mg Tab.Er.24h PO DAILY@0700 [facility] Nitroglycerin 1 inch 08/16/21 18:00 08/16/21 23:42 Nitroglycerin Oint 1 Inch/Gm Packet TOPICAL 1 inch QID [facility] Administration Ropinirole HCl 0.25 mg 08/16/21 21:00 08/16/21 21:47 Ropinirole Hcl 0.25 Mg Tab PO 0.25 mg HS [facility] Administration Sodium Chloride 10 ml 08/16/21 21:00 08/16/21 21:47 Sodium Chloride 0.9% Flush 10 Ml Syringe IV 10 ml BID [facility] Administration Intake and Output 08/16/21 08/17/21 08/17/21 22:59 06:59 14:59 Intake Total 30 180 Balance 30 180 Intake: Oral 30 180 Other: Voiding Method Toilet # Voids 3 2 # Bowel Movements 1 Weight 70.76 kg 08/16/21 12:45 08/16/21 12:45 Assessment and Plan Assessment: Assessment #1 hypertension emergency complicated by heart failure #2 heart failure exacerbation secondary to heart failure with reduced ejection fraction #3 severe cardiomyopathy with last EF 35-40% from recent echo #4 valvular heart disease was moderate and tricuspid regurgitation #5 permanent atrial fibrillation on oral anticoagulation #6 multiple comorbid conditions #7 history of stroke #8 history of myelodysplastic syndrome Plan #1 continue the current dose of Lasix IV #2 monitor the kidney function and electrolytes #3 aggressive blood pressure control in the light of the cardiomyopathy as well as history of stented thoracic aorta #4 add lisinopril to the current medical regimen #5 add Aldactone to the current medical regimen #6 continue the current dose of beta rosalina #7 continue anticoagulation #8 follow-up with the patient
[2021-08-17 10:27] LABS: Basophils # (A) 0.02 X 10*3/uL (0.00-0.10); Basophils % (A) 0.7 %; Eosinophils # (A) 0.05 X 10*3/uL (0.04-0.35); Eosinophils % (A) 1.7 %; HCT 34.8 % (37.2-46.3); HGB 10.6 g/dL (12.0-15.0); Lymphocytes # (A) 1.32 X 10*3/uL (0.90-5.00); Lymphocytes % (A) 44.6 %; MCH 31.7 pg (27.0-32.0); MCHC 30.5 g/dL (32.0-37.0); MCV 104.2 fL (80.0-97.0); Mean Platelet Volume 11.4 fL (9.5-12.2); Monocytes # (A) 0.34 X 10*3/uL (0.20-1.00); Monocytes % (A) 11.5 %; Neutrophils # (A) 1.21 X 10*3/uL (1.80-7.70); Neutrophils % (A) 40.8 %; Platelet Count 85 X 10*3/uL (140-440); RBC 3.34 X 10*6/uL (4.10-5.20); RDW 17.2 % (11.5-14.5); WBC 2.96 X 10*3/uL (4.50-10.00)
[2021-08-17] MEDS: amLODIPine 5 MG TAB PO SCH (10:57)
[2021-08-17] MEDS: ASPIRIN 325 MG TAB PO SCH (10:57)
[2021-08-17] MEDS: APIXABAN 2.5 MG TABLET PO SCH ×2 (10:57→21:44)
[2021-08-17] MEDS: ATORVASTATIN 20 MG TAB PO SCH (10:57)
[2021-08-17] MEDS: FUROSEMIDE 10 MG/ML 4 ML VIAL IV SCH ×3 (10:57→22:25)
[2021-08-17] MEDS: METOPROLOL SUCCINATE (ER) 100 MG TAB.ER.24H PO SCH (10:58)
[2021-08-17] MEDS: ISOSORBIDE MONONITRATE ER 60 MG TAB.ER.24H PO SCH (10:58)
[2021-08-17] MEDS: NITROGLYCERIN OINT 1 INCH/GM PACKET TOPICAL SCH ×4 (10:58→22:25)
[2021-08-17 10:59] LABS: African American GFR (CKD) 48.4 (60.0-200.0); Anion Gap 14.8 mmol/L (10.00-18.00); BUN/Creat Ratio 28.47 Ratio (12.00-20.00); Blood Urea Nitrogen 33.6 mg/dL (9.0-27.0); Calcium 9.8 mg/dL (8.7-10.3); Carbon Dioxide 27.1 mmol/L (20.0-27.5); Non-African American GFR(CKD) 41.7 (60.0-200.0); Potassium 3.9 mmol/L (3.5-5.5)
[2021-08-17] MEDS ORDERED: SPIRONOLACTONE 25 MG TAB PO ONE (13:00)
[2021-08-17] MEDS ORDERED: lisinopriL 10 MG TAB PO ONE (13:00)
--- NOTE | 2021-08-17 22:09 | P.PN ---
Subjective This is a pleasant 86 years old female with past medical history of Atrial Fibrillation, on Eliquis, Coronary Artery Disease on baby aspirin and met oprolol, Heart Failure, CVA/TIA, Deep Vein Thrombosis and pulmonary embolism, GERD, Hyperlipidemia, Hypertension, Osteoarthritis hypothyroidism, MDS diagnosed in 2016 and takes oral chemo, aortic abdominal aneurysm, duodenal ulcer, colitis and irritable bowel syndrome. She is a patient of Dr. De La Rosa, She was sent from his office for chest pain, dyspnea and high blood pressure Patient and her granddaughter bedside provided information. Patient states that she's been having dyspnea for the last 2 days but yesterday to become more severe associated with orthopnea and paroxysmal nocturnal dyspnea also she felt like something sitting on her chest felt like pressure which is relieved after she kept emergency room and received treatment for example for her high blood pressure. Her chest pain she had it last night and this morning but it is gone now. No coughing. No abdominal pain or nausea vomiting. No diarrhea. No urinary complaints. No headache or weakness or numbness or dizziness. No history of smoking, alcohol or illicit drugs She has history of cardiac cath about 4 years ago status post stent placement. Her acute care nurse is Dr. Millan Also she has history of aortic aneurysm repair also about 4 years ago She is not on home oxygen Vital signs stable, blood pressure was elevated on admission 188/107 currently is 158/83. She is saturating 97% on 2 L Labs showing WBC 2.5, platelet is 90. Hemoglobin normal at 11.5 INR is 1.2. Sodium 138. Creatinine 1.1 which is at baseline. Liver [place] [address] EKG showed atrial fibrillation at [address]-T changes. Echocardiogram on 02/24: Ejection fraction of 35-40% with septal hypokinesia and moderate to severe mitral regurgitation and moderate tricuspid regurgitation with mild pulmonary hypertension Chest x-ray: Cardiomegaly, post procedural changes for enteric aneurysm. Difficult to exclude basilar effusion, atelectasis, correlate to exclude pneumonia In the emergency room show a started on aspirin, Lasix 40 mg every 8 hours 08/17/2021 Patient was admitted with CHF and chest pain and high blood pressure. Today she feels better, she is able to lie flat in her bed better than yesterday and breathing is improving but not completely resolved. She denies chest pain today. Her blood pressure is better controlled after adding Norvasc 5 mg, lisinopril 10 mg and Aldactone 25 mg. Blood pressure currently is 137/55 Also she is continued on aspirin 325 mg She has mild pancytopenia with WBC 2.9, platelet 85 and hemoglobin 10.6. Stable at 1.2. She remains on Lasix IV 40 mg twice a day Cardiology team on board Objective - Vital Signs Vital signs: Vital Signs Temp 97.6 F 08/17/21 07:00 Pulse 66 08/17/21 07:00 Resp 16 08/17/21 07:00 BP 181/70 08/17/21 07:00 Pulse Ox 100 08/17/21 07:00 Intake & Output 08/16/21 08/17/21 08/17/21 18:59 06:59 18:59 Intake Total 30 180 Balance 30 180 Weight 70.76 kg 70.76 kg Intake: Oral 30 180 Other: Voiding Method Toilet # Voids 2 # Bowel Movements 1 - Exam GENERAL: The patient is alert and oriented x3, not in any acute distress. Well developed, well nourished. HEENT: Pupils are round and equally reacting to light. EOMI. No scleral icterus. No conjunctival pallor. Normocephalic, atraumatic. No pharyngeal erythema. No thyromegaly. CARDIOVASCULAR: S1 and S2 present. No murmurs, rubs, or gallops. -PULMONARY: Chest is clear to auscultation, no wheezing. Bilateral basal crepitation. ABDOMEN: Soft, nontender, nondistended, normoactive bowel sounds. No palpable organomegaly. MUSCULOSKELETAL: No joint swelling or deformity. -EXTREMITIES: No cyanosis, clubbing,. Mild bilateral pitting leg edema. NEUROLOGICAL: Gross neurological examination did not reveal any focal deficits. SKIN: No rashes. No petechiae - Labs CBC & Chem 7: 08/17/21 03:40 08/17/21 03:40 Labs: Abnormal Lab Results - Last 24 Hours (Table) 08/16/21 08/16/21 08/16/21 Range/Units 12:45 12:45 12:45 WBC 2.5 L (3.8-10.6) k/uL RBC 3.46 L (3.80-5.40) m/uL Hgb (12.0-15.0) g/dL Hct (37.2-46.3) % MCV 101.6 H (80.0-100.0) fL MCHC (32.0-37.0) g/dL RDW 17.2 H (11.5-15.5) % Plt Count 90 L (150-450) k/uL Neutrophils # (1.80-7.70) X 10*3/uL Lymphocytes # 0.8 L (1.0-4.8) k/uL PT 12.1 H (9.0-12.0) sec INR 1.2 H (<1.2) Carbon Dioxide 31 H (22-30) mmol/L BUN 31 H (7-17) mg/dL Creatinine 1.10 H (0.52-1.04) mg/dL Est GFR (CKD-EPI)AfAm (60.0-200.0) Est GFR (CKD-EPI)NonAf (60.0-200.0) BUN/Creatinine Ratio (12.00-20.00) Ratio Glucose 104 H (74-99) mg/dL Total Bilirubin 2.2 H (0.2-1.3) mg/dL 08/17/21 08/17/21 Range/Units 03:40 03:40 WBC 2.96 L (3.8-10.6) k/uL RBC 3.34 L (3.80-5.40) m/uL Hgb 10.6 L (12.0-15.0) g/dL Hct 34.8 L (37.2-46.3) % MCV 104.2 H (80.0-100.0) fL MCHC 30.5 L (32.0-37.0) g/dL RDW 17.2 H (11.5-15.5) % Plt Count 85 L (150-450) k/uL Neutrophils # 1.21 L (1.80-7.70) X 10*3/uL Lymphocytes # (1.0-4.8) k/uL PT (9.0-12.0) sec INR (<1.2) Carbon Dioxide (22-30) mmol/L BUN 33.6 H (7-17) mg/dL Creatinine (0.52-1.04) mg/dL Est GFR (CKD-EPI)AfAm 48.4 L (60.0-200.0) Est GFR (CKD-EPI)NonAf 41.7 L (60.0-200.0) BUN/Creatinine Ratio 28.47 H (12.00-20.00) Ratio Glucose (74-99) mg/dL Total Bilirubin (0.2-1.3) mg/dL Assessment and Plan Assessment: Acute on chronic Chronic systolic CHF with EF 35-40% Chest pain, rule out cardiac causes Moderate to severe mitral regurgitation, moderate tricuspid regurgitation Mild bicytopenia with leukopenia and thrombocytopenia History of MDS hypertension chronic kidney disease, stage III Hyperlipidemia Paroxysmal atrial fibrillation on Eliquis 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 Continue same treatment. Continue with symptomatic treatment. Resume home medication. Monitor lytes and vitals. DVT and GI prophylaxis. Further recommendations depends on the clinical course of the patient DVT prophyla Eliquis GI Prophylaxis: Pepcid PT/OT: Pending Prognosis is guarded
[2021-08-18] MEDS: LEVOTHYROXINE 100 MCG TAB PO SCH (06:02)
[2021-08-18] MEDS ORDERED: CINACALCET 30 MG TAB PO SCH (07:00)
[2021-08-18] MEDS: NITROGLYCERIN OINT 1 INCH/GM PACKET TOPICAL SCH (09:16)
[2021-08-18] MEDS: APIXABAN 2.5 MG TABLET PO SCH ×2 (09:16→20:51)
[2021-08-18] MEDS: SPIRONOLACTONE 25 MG TAB PO SCH (09:16)
[2021-08-18] MEDS: ASPIRIN 325 MG TAB PO SCH (09:16)
[2021-08-18] MEDS: lisinopriL 10 MG TAB PO SCH (09:16)
[2021-08-18] MEDS: FUROSEMIDE 10 MG/ML 4 ML VIAL IV SCH ×3 (09:16→22:44)
[2021-08-18] MEDS: amLODIPine 5 MG TAB PO SCH (09:16)
[2021-08-18] MEDS: ATORVASTATIN 20 MG TAB PO SCH (09:16)
[2021-08-18 09:20] LABS: African American GFR (CKD) 52.6 (60.0-200.0); Anion Gap 14.1 mmol/L (10.00-18.00); BUN/Creat Ratio 33.82 Ratio (12.00-20.00); Blood Urea Nitrogen 37.2 mg/dL (9.0-27.0); Calcium 9.7 mg/dL (8.7-10.3); Carbon Dioxide 26.9 mmol/L (20.0-27.5); Magnesium 2.2 mg/dL (1.5-2.4); Non-African American GFR(CKD) 45.4 (60.0-200.0); Potassium 3.6 mmol/L (3.5-5.5)
[2021-08-18 09:48] LABS: Basophils # (A) 0.01 X 10*3/uL (0.00-0.10); Basophils % (A) 0.4 %; Eosinophils # (A) 0.07 X 10*3/uL (0.04-0.35); Eosinophils % (A) 2.8 %; HCT 34.2 % (37.2-46.3); HGB 10.3 g/dL (12.0-15.0); Lymphocytes # (A) 1.15 X 10*3/uL (0.90-5.00); Lymphocytes % (A) 45.3 %; MCH 31.5 pg (27.0-32.0); MCHC 30.1 g/dL (32.0-37.0); MCV 104.6 fL (80.0-97.0); Mean Platelet Volume 11.8 fL (9.5-12.2); Monocytes % (A) 11.8 %; Neutrophils % (A) 39.3 %; Platelet Count 79 X 10*3/uL (140-440); RBC 3.27 X 10*6/uL (4.10-5.20); RDW 17.2 % (11.5-14.5); WBC 2.54 X 10*3/uL (4.50-10.00)
--- NOTE | 2021-08-18 09:49 | P.PN ---
Subjective Progress Note Date: 08/18/21 HISTORY OF PRESENT ILLNESS: The patient is an 86-year-old female patient requested to see for further evaluation off shortness of breath as well as heart racing. She does have an e xtensive cardiovascular history consistent of history of stroke in 2019 and also non-ischemic cardiomyopathy as well as valvular heart disease with mitral and tricuspid regurgitation and also permanent atrial fibrillation on oral anticoagulation as well as hypertension and dyslipidemia. The patient somewhat is a poor historian but she has not been feeding well for the last few days patient has been experiencing symptoms of increasing shortness of breath without any chest pain or chest discomfort and without any dizziness or lightheadedness or presyncope or syncope. She developed also lower extremities edema. When she presented to the hospital her pressure was elevated. She stated that she has been compliant with her medications as well as with her diet. She underwent an EKG which showed underlying atrial fibrillation with LBBB. The chest x-ray seems to be consistent with heart failure. And the proBNP came in to be elevated at 13,000. The patient initially went and saw her primary care physician who referred the patient to the hospital for further evaluation. Beside the above extensive medical history she has she has also thoracic aortic stent graft. Previous echocardiogram from 2020 revealed impaired LV function was EF between 35-40% with moderate to severe mitral and tricuspid regurgitation and mild pulmonary hypertension. 08/18/2021 Patient examined this morning at the bedside. Patient reports not sleeping well overnight. She denies chest pain or pressure. Reports improvement in SOB. She continues to have shortness of breath with ambulation to the bathroom. She remains on IV lasix. Fluid balance over the last 24 hours is -1360cc. Blood pressure this morning 111/65. PHYSICAL EXAM: VITAL SIGNS: Reviewed. GENERAL: Well-developed in no acute distress. NECK: Supple. No JVD or thyromegaly LUNGS: Respirations even and unlabored. Lungs diminished to auscultation bilaterally. HEART: Irregular rate and rhythm. S1 and S2 heard. Systolic murmur noted. EXTREMITIES: Normal range of motion. No clubbing or cyanosis. Peripheral pulses intact. Trace bilateral lower extremity edema ASSESSMENT: Hypertensive emergency Acute on chronic systolic congestive heart failure, EF 35% Valvular heart disease Chronic persistent atrial fibrillation History of TIA/CVA History of mild dysplastic syndrome PLAN: Continue current cardiac medications Continue IV lasix Monitor kidney function Accurate I&O Daily weights Monitor blood pressure Further recommendations pending patient course Nurse practitioner note has been reviewed by physician. Signing provider agrees with the documented findings, assessment, and plan of care. Objective - Vital Signs Vital signs: Vital Signs Temp 97.7 F 08/18/21 07:00 Pulse 66 08/18/21 07:00 Resp 16 08/18/21 07:00 BP 111/65 08/18/21 07:00 Pulse Ox 95 08/18/21 07:00 Intake & Output 08/17/21 08/18/21 08/18/21 18:59 06:59 18:59 Intake Total 540 360 Output Total 600 1300 100 Balance -60 -1300 260 Weight 69.9 kg Intake: Oral 540 360 Output: Urine 600 1300 100 Other: Voiding Method Toilet Toilet # Voids 1 - Labs CBC & Chem 7: 08/18/21 04:28 08/18/21 04:28 Labs: Abnormal Lab Results - Last 24 Hours (Table) 08/17/21 08/17/21 08/18/21 Range/Units 03:40 03:40 04:28 WBC 2.96 L (4.50-10.00) X 10*3/uL RBC 3.34 L (4.10-5.20) X 10*6/uL Hgb 10.6 L (12.0-15.0) g/dL Hct 34.8 L (37.2-46.3) % MCV 104.2 H (80.0-97.0) fL MCHC 30.5 L (32.0-37.0) g/dL RDW 17.2 H (11.5-14.5) % Plt Count 85 L (140-440) X 10*3/uL Neutrophils # 1.21 L (1.80-7.70) X 10*3/uL BUN 33.6 H 37.2 H (9.0-27.0) mg/dL Est GFR (CKD-EPI)AfAm 48.4 L 52.6 L (60.0-200.0) Est GFR (CKD-EPI)NonAf 41.7 L 45.4 L (60.0-200.0) BUN/Creatinine Ratio 28.47 H 33.82 H (12.00-20.00) Ratio
[2021-08-18] MEDS: METOPROLOL SUCCINATE (ER) 100 MG TAB.ER.24H PO SCH (10:37)
[2021-08-18] MEDS: ISOSORBIDE MONONITRATE ER 60 MG TAB.ER.24H PO SCH (10:38)
[2021-08-18] MEDS ORDERED: POTASSIUM CHLORIDE ER 20 MEQ TAB.ER PO STA (11:35)
[2021-08-18] MEDS ORDERED: CYANOCOBALAMIN 1,000 MCG/ML 1 ML VIAL IM ONE (13:00)
[2021-08-18 14:10] VITALS: BMI 30.1
[2021-08-18 15:45] LABS: Appearance,Urine Clear (Clear); Bilirubin,Urine Negative (Negative); Blood,Urine Negative (Negative); Color,Urine Light Yellow; Glucose,Urine (UA) Negative (Negative); Ketones,Urine Negative (Negative); Leukocyte Esterase,Urine Negative (Negative); Nitrite,Urine Negative (Negative); PH, Urine 5.5 (5.0-8.0); Protein,Urine Negative (Negative); Urobilinogen,Urine <2.0 mg/dL (<2.0)
--- NOTE | 2021-08-18 22:49 | P.PN ---
Subjective This is a pleasant 86 years old female with past medical history of Atrial Fibrillation, on Eliquis, Coronary Artery Disease on baby aspirin and met oprolol, Heart Failure, CVA/TIA, Deep Vein Thrombosis and pulmonary embolism, GERD, Hyperlipidemia, Hypertension, Osteoarthritis hypothyroidism, MDS diagnosed in 2016 and takes oral chemo, aortic abdominal aneurysm, duodenal ulcer, colitis and irritable bowel syndrome. She is a patient of Dr. De La Rosa, She was sent from his office for chest pain, dyspnea and high blood pressure Patient and her granddaughter bedside provided information. Patient states that she's been having dyspnea for the last 2 days but yesterday to become more severe associated with orthopnea and paroxysmal nocturnal dyspnea also she felt like something sitting on her chest felt like pressure which is relieved after she kept emergency room and received treatment for example for her high blood pressure. Her chest pain she had it last night and this morning but it is gone now. No coughing. No abdominal pain or nausea vomiting. No diarrhea. No urinary complaints. No headache or weakness or numbness or dizziness. No history of smoking, alcohol or illicit drugs She has history of cardiac cath about 4 years ago status post stent placement. Her desilverizer is Dr. Millan Also she has history of aortic aneurysm repair also about 4 years ago She is not on home oxygen Vital signs stable, blood pressure was elevated on admission 188/107 currently is 158/83. She is saturating 97% on 2 L Labs showing WBC 2.5, platelet is 90. Hemoglobin normal at 11.5 INR is 1.2. Sodium 138. Creatinine 1.1 which is at baseline. [place] [address] EKG showed atrial fibrillation at [address]-T changes. Echocardiogram on 02/24: Ejection fraction of 35-40% with septal hypokinesia and moderate to severe mitral regurgitation and moderate tricuspid regurgitation with mild pulmonary hypertension Chest x-ray: Cardiomegaly, post procedural changes for enteric aneurysm. Difficult to exclude basilar effusion, atelectasis, correlate to exclude pneumonia In the emergency room show a started on aspirin, Lasix 40 mg every 8 hours 08/17/2021 Patient was admitted with CHF and chest pain and high blood pressure. Today she feels better, she is able to lie flat in her bed better than yesterday and breathing is improving but not completely resolved. She denies chest pain today. Her blood pressure is better controlled after adding Norvasc 5 mg, lisinopril 10 mg and Aldactone 25 mg. Blood pressure currently is 137/55 Also she is continued on aspirin 325 mg She has mild pancytopenia with WBC 2.9, platelet 85 and hemoglobin 10.6. Stable at 1.2. She remains on Lasix IV 40 mg twice a day Cardiology team on board 08/18/2021 Patient is admitted with chest pain and acute CHF exacerbation. Currently she is improving on IV Lasix and she has no chest pain She is hemodynamically stable I discussed the case with cardiology team and they prefer to keep her one more day for intravenous Lasix Patient is also on fluid restriction. Also blood pressure is better controlled after adding lisinopril and Aldactone. Also patient is on metoprolol, Norvasc and Imdur Low borderline vitamin B12 level at 378 been replaced. Possible discharge in 24-48 hours was cleared by cardiology team Objective - Vital Signs Vital signs: Vital Signs Temp 97.7 F 08/18/21 07:00 Pulse 66 08/18/21 07:00 Resp 16 08/18/21 07:00 BP 111/65 08/18/21 07:00 Pulse Ox 95 08/18/21 07:00 Intake & Output 08/17/21 08/18/21 08/18/21 18:59 06:59 18:59 Intake Total 540 360 Output Total 600 1300 100 Balance -60 -1300 260 Weight 69.9 kg Intake: Oral 540 360 Output: Urine 600 1300 100 Other: Voiding Method Toilet Toilet # Voids 1 - Exam GENERAL: The patient is alert and oriented x3, not in any acute distress. Well developed, well nourished. HEENT: Pupils are round and equally reacting to light. EOMI. No scleral icterus. No conjunctival pallor. Normocephalic, atraumatic. No pharyngeal erythema. No thyromegaly. CARDIOVASCULAR: S1 and S2 present. No murmurs, rubs, or gallops. -PULMONARY: Chest is clear to auscultation, no wheezing. Bilateral basal crepitation. ABDOMEN: Soft, nontender, nondistended, normoactive bowel sounds. No palpable organomegaly. MUSCULOSKELETAL: No joint swelling or deformity. -EXTREMITIES: No cyanosis, clubbing,. Mild bilateral pitting leg edema. NEUROLOGICAL: Gross neurological examination did not reveal any focal deficits. SKIN: No rashes. No petechiae - Labs CBC & Chem 7: 08/18/21 04:28 08/18/21 04:28 Labs: Abnormal Lab Results - Last 24 Hours (Table) 08/18/21 08/18/21 Range/Units 04:28 04:28 WBC 2.54 L (4.50-10.00) X 10*3/uL RBC 3.27 L (4.10-5.20) X 10*6/uL Hgb 10.3 L (12.0-15.0) g/dL Hct 34.2 L (37.2-46.3) % MCV 104.6 H (80.0-97.0) fL MCHC 30.1 L (32.0-37.0) g/dL RDW 17.2 H (11.5-14.5) % Plt Count 79 L (140-440) X 10*3/uL Neutrophils # 1.00 L (1.80-7.70) X 10*3/uL Immature Plt Fraction 8.1 H (1.1-6.1) % BUN 37.2 H (9.0-27.0) mg/dL Est GFR (CKD-EPI)AfAm 52.6 L (60.0-200.0) Est GFR (CKD-EPI)NonAf 45.4 L (60.0-200.0) BUN/Creatinine Ratio 33.82 H (12.00-20.00) Ratio Assessment and Plan Assessment: Acute on chronic Chronic systolic CHF with EF 35-40% Chest pain, rule out cardiac causes. Resolved Hypertension uncontrolled admission. 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 Continue same treatment. Continue with symptomatic treatment. Resume home medication. Monitor lytes and vitals. DVT and GI prophylaxis. Further recommendations depends on the clinical course of the patient DVT prophyla Eliquis GI Prophylaxis: Pepcid PT/OT: Pending Prognosis is guarded
[2021-08-19] MEDS: LEVOTHYROXINE 100 MCG TAB PO SCH (06:04)
[2021-08-19] MEDS: ATORVASTATIN 20 MG TAB PO SCH (09:08)
[2021-08-19] MEDS: APIXABAN 2.5 MG TABLET PO SCH ×2 (09:08→19:48)
[2021-08-19] MEDS: amLODIPine 5 MG TAB PO SCH (09:08)
[2021-08-19] MEDS: ASPIRIN 81 MG PO SCH (09:08)
[2021-08-19] MEDS: CYANOCOBALAMIN 500 MCG TAB PO SCH (09:08)
[2021-08-19] MEDS: SPIRONOLACTONE 25 MG TAB PO SCH (09:08)
[2021-08-19] MEDS: FUROSEMIDE 10 MG/ML 4 ML VIAL IV SCH (09:08)
[2021-08-19] MEDS: lisinopriL 10 MG TAB PO SCH (09:08)
[2021-08-19] MEDS: METOPROLOL SUCCINATE (ER) 100 MG TAB.ER.24H PO SCH (09:09)
[2021-08-19] MEDS: ISOSORBIDE MONONITRATE ER 60 MG TAB.ER.24H PO SCH (09:09)
--- NOTE | 2021-08-19 09:41 | P.PN ---
Subjective Progress Note Date: 08/19/21 HISTORY OF PRESENT ILLNESS: The patient is an 86-year-old female patient requested to see for further evaluation off shortness of breath as well as heart racing. She does have an e xtensive cardiovascular history consistent of history of stroke in 2019 and also non-ischemic cardiomyopathy as well as valvular heart disease with mitral and tricuspid regurgitation and also permanent atrial fibrillation on oral anticoagulation as well as hypertension and dyslipidemia. The patient somewhat is a poor historian but she has not been feeding well for the last few days patient has been experiencing symptoms of increasing shortness of breath without any chest pain or chest discomfort and without any dizziness or lightheadedness or presyncope or syncope. She developed also lower extremities edema. When she presented to the hospital her pressure was elevated. She stated that she has been compliant with her medications as well as with her diet. She underwent an EKG which showed underlying atrial fibrillation with LBBB. The chest x-ray seems to be consistent with heart failure. And the proBNP came in to be elevated at 13,000. The patient initially went and saw her primary care physician who referred the patient to the hospital for further evaluation. Beside the above extensive medical history she has she has also thoracic aortic stent graft. Previous echocardiogram from 2020 revealed impaired LV function was EF between 35-40% with moderate to severe mitral and tricuspid regurgitation and mild pulmonary hypertension. 08/18/2021 Patient examined this morning at the bedside. Patient reports not sleeping well overnight. She denies chest pain or pressure. Reports improvement in SOB. She continues to have shortness of breath with ambulation to the bathroom. She remains on IV lasix. Fluid balance over the last 24 hours is -1360cc. Blood pressure this morning 111/65. 08/19/2021 Patient examined this morning at the bedside. She denies chest pain or pressure. She continues to report shortness of breath and states it is about the same as yesterday. She states she is requiring oxygen otherwise she feels short of breath. PHYSICAL EXAM: VITAL SIGNS: Reviewed. GENERAL: Well-developed in no acute distress. NECK: Supple. No JVD or thyromegaly LUNGS: Respirations even and unlabored. Lungs diminished to auscultation bilaterally, left greater than right. HEART: Irregular rate and rhythm. S1 and S2 heard. Systolic murmur noted. EXTREMITIES: Normal range of motion. No clubbing or cyanosis. Peripheral pulses intact. Trace bilateral lower extremity edema, right greater than left ASSESSMENT: Hypertensive emergency Acute on chronic systolic congestive heart failure, EF 35% Valvular heart disease Chronic persistent atrial fibrillation History of TIA/CVA History of mild dysplastic syndrome PLAN: Patient continues to report SOB despite improvement in volume status. Obtain repeat CXR Await BMP this morning to assess kidney function Wean oxygen as tolerated Change lasix to oral dosinmg daily Further recommendations pending patient course Nurse practitioner note has been reviewed by physician. Signing provider agrees with the documented findings, assessment, and plan of care. Objective - Vital Signs Vital signs: Vital Signs Temp 97.7 F 08/19/21 07:00 Pulse 75 08/19/21 07:00 Resp 18 08/19/21 07:00 BP 174/62 08/19/21 07:00 Pulse Ox 100 08/19/21 07:00 Intake & Output 08/18/21 08/19/21 08/19/21 18:59 06:59 18:59 Intake Total 1130 Output Total 100 1025 150 Balance 1030 -1025 -150 Weight 69.9 kg 69.5 kg Intake: Oral 1130 Output: Urine 100 1025 150 Other: Voiding Method Toilet # Voids 1 # Bowel Movements 1 - Labs CBC & Chem 7: 08/18/21 04:28 08/18/21 04:28 Labs: Abnormal Lab Results - Last 24 Hours (Table) 08/18/21 Range/Units 04:28 WBC 2.54 L (4.50-10.00) X 10*3/uL RBC 3.27 L (4.10-5.20) X 10*6/uL Hgb 10.3 L (12.0-15.0) g/dL Hct 34.2 L (37.2-46.3) % MCV 104.6 H (80.0-97.0) fL MCHC 30.1 L (32.0-37.0) g/dL RDW 17.2 H (11.5-14.5) % Plt Count 79 L (140-440) X 10*3/uL Neutrophils # 1.00 L (1.80-7.70) X 10*3/uL Immature Plt Fraction 8.1 H (1.1-6.1) %
[2021-08-19 10:41] LABS: BUN/Creat Ratio 36.46 Ratio (12.00-20.00); Blood Urea Nitrogen 41.2 mg/dL (9.0-27.0); Calcium 10.1 mg/dL (8.7-10.3); Carbon Dioxide 29.4 mmol/L (20.0-27.5); Potassium 4.3 mmol/L (3.5-5.5)
--- NOTE | 2021-08-19 10:53 | XR ---
EXAMINATION TYPE: XR chest 2V DATE OF EXAM: 08/19/2021 COMPARISON: 08/16/2021 TECHNIQUE: PA and lateral views submitted. HISTORY: Shortness of breath FINDINGS: The lungs are clear and there is no pneumothorax, pleural effusion, or focal pneumonia. Thoracic ao rtic aneurysm with stent graft again noted. Chronic deformities of the lateral rib cage on the right with pleural thickening. No overt failure. Heart size normal. Arthropathy of the shoulders. Biapical pleural thickening. IVC filter in the abdomen noted. IMPRESSION: 1. No acute process.
[2021-08-19] MEDS ORDERED: FUROSEMIDE 10 MG/ML 4 ML VIAL IV ONE (18:30)
--- NOTE | 2021-08-19 20:20 | P.PN ---
Subjective This is a pleasant 86 years old female with past medical history of Atrial Fibrillation, on Eliquis, Coronary Artery Disease on baby aspirin and met oprolol, Heart Failure, CVA/TIA, Deep Vein Thrombosis and pulmonary embolism, GERD, Hyperlipidemia, Hypertension, Osteoarthritis hypothyroidism, MDS diagnosed in 2016 and takes oral chemo, aortic abdominal aneurysm, duodenal ulcer, colitis and irritable bowel syndrome. She is a patient of Dr. De La Rosa, She was sent from his office for chest pain, dyspnea and high blood pressure Patient and her granddaughter bedside provided information. Patient states that she's been having dyspnea for the last 2 days but yesterday to become more severe associated with orthopnea and paroxysmal nocturnal dyspnea also she felt like something sitting on her chest felt like pressure which is relieved after she kept emergency room and received treatment for example for her high blood pressure. Her chest pain she had it last night and this morning but it is gone now. No coughing. No abdominal pain or nausea vomiting. No diarrhea. No urinary complaints. No headache or weakness or numbness or dizziness. No history of smoking, alcohol or illicit drugs She has history of cardiac cath about 4 years ago status post stent placement. Her probation and patrol agent is Dr. Millan Also she has history of aortic aneurysm repair also about 4 years ago She is not on home oxygen Vital signs stable, blood pressure was elevated on admission 188/107 currently is 158/83. She is saturating 97% on 2 L Labs showing WBC 2.5, platelet is 90. Hemoglobin normal at 11.5 INR is 1.2. Sodium 138. Creatinine 1.1 which is at baseline. Liver [place] [address] EKG showed atrial fibrillation at [address]-T changes. Echocardiogram on 02/24: Ejection fraction of 35-40% with septal hypokinesia and moderate to severe mitral regurgitation and moderate tricuspid regurgitation with mild pulmonary hypertension Chest x-ray: Cardiomegaly, post procedural changes for enteric aneurysm. Difficult to exclude basilar effusion, atelectasis, correlate to exclude pneumonia In the emergency room show a started on aspirin, Lasix 40 mg every 8 hours 08/17/2021 Patient was admitted with CHF and chest pain and high blood pressure. Today she feels better, she is able to lie flat in her bed better than yesterday and breathing is improving but not completely resolved. She denies chest pain today. Her blood pressure is better controlled after adding Norvasc 5 mg, lisinopril 10 mg and Aldactone 25 mg. Blood pressure currently is 137/55 Also she is continued on aspirin 325 mg She has mild pancytopenia with WBC 2.9, platelet 85 and hemoglobin 10.6. Stable at 1.2. She remains on Lasix IV 40 mg twice a day Cardiology team on board 08/18/2021 Patient is admitted with chest pain and acute CHF exacerbation. Currently she is improving on IV Lasix and she has no chest pain She is hemodynamically stable I discussed the case with cardiology team and they prefer to keep her one more day for intravenous Lasix Patient is also on fluid restriction. Also blood pressure is better controlled after adding lisinopril and Aldactone. Also patient is on metoprolol, Norvasc and Imdur Low borderline vitamin B12 level at 378 been replaced. Possible discharge in 24-48 hours was cleared by cardiology team 08/19/2021 Patient is clinically improving slowly and progressively, she still has some wide wheezing. Today. Although there is minimal leg swelling and minimal distally crepitation. However her BMP looks his stable as well. Wound Care Coordinator switch her to Lasix 40 mg by mouth daily. We gave one extra dose of IV Lasix. Monitor creatinine and electrolytes tomorrow. Also patient was started on B12 replacement for borderline low level at 378 with evidence of pancytopenia. CBC tomorrow morning. She is currently on baby aspirin Possible discharge in 24-48 hours if she keeps improving Objective - Vital Signs Vital signs: Vital Signs Temp 97.7 F 08/19/21 07:00 Pulse 75 08/19/21 07:00 Resp 18 08/19/21 07:00 BP 174/62 08/19/21 07:00 Pulse Ox 100 08/19/21 07:00 Intake & Output 08/18/21 08/19/21 08/19/21 18:59 06:59 18:59 Intake Total 1130 Output Total 100 1025 150 Balance 1030 -1025 -150 Weight 69.9 kg 69.5 kg Intake: Oral 1130 Output: Urine 100 1025 150 Other: Voiding Method Toilet # Voids 1 # Bowel Movements 1 - Exam GENERAL: The patient is alert and oriented x3, not in any acute distress. Well developed, well nourished. HEENT: Pupils are round and equally reacting to light. EOMI. No scleral icterus. No conjunctival pallor. Normocephalic, atraumatic. No pharyngeal erythema. No thyromegaly. CARDIOVASCULAR: S1 and S2 present. No murmurs, rubs, or gallops. -PULMONARY: Chest is clear to auscultation, no wheezing. Bilateral basal crepitation. ABDOMEN: Soft, nontender, nondistended, normoactive bowel sounds. No palpable organomegaly. MUSCULOSKELETAL: No joint swelling or deformity. -EXTREMITIES: No cyanosis, clubbing,. Mild bilateral pitting leg edema. NEUROLOGICAL: Gross neurological examination did not reveal any focal deficits. SKIN: No rashes. No petechiae - Labs CBC & Chem 7: 08/18/21 04:28 08/19/21 04:57 Labs: Abnormal Lab Results - Last 24 Hours (Table) 08/19/21 Range/Units 04:57 Carbon Dioxide 29.4 H (20.0-27.5) mmol/L BUN 41.2 H (9.0-27.0) mg/dL Est GFR (CKD-EPI)AfAm 51.0 L (60.0-200.0) Est GFR (CKD-EPI)NonAf 44.0 L (60.0-200.0) BUN/Creatinine Ratio 36.46 H (12.00-20.00) Ratio Assessment and Plan Assessment: Acute on chronic Chronic systolic CHF with EF 35-40% Chest pain, rule out cardiac causes. Resolved Hypertension uncontrolled admission. 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 Continue same treatment. Continue with symptomatic treatment. Resume home medication. Monitor lytes and vitals. DVT and GI prophylaxis. Further recommendations depends on the clinical course of the patient DVT prophyla Eliquis GI Prophylaxis: Pepcid PT/OT: Pending Prognosis is guarded
[2021-08-19] MEDS ORDERED: FUROSEMIDE 10 MG/ML 4 ML VIAL IV SCH (21:00)
[2021-08-20] MEDS: LEVOTHYROXINE 100 MCG TAB PO SCH (06:16)
[2021-08-20 07:45] VITALS: BP 147/61; RESP 18; TEMP 97.6
[2021-08-20] MEDS: ATORVASTATIN 20 MG TAB PO SCH (08:47)
[2021-08-20] MEDS: amLODIPine 5 MG TAB PO SCH (08:47)
[2021-08-20] MEDS: APIXABAN 2.5 MG TABLET PO SCH (08:47)
[2021-08-20] MEDS: ASPIRIN 81 MG PO SCH (08:47)
[2021-08-20] MEDS: CYANOCOBALAMIN 500 MCG TAB PO SCH (08:47)
[2021-08-20] MEDS: METOPROLOL SUCCINATE (ER) 100 MG TAB.ER.24H PO SCH (08:47)
[2021-08-20] MEDS: ISOSORBIDE MONONITRATE ER 60 MG TAB.ER.24H PO SCH (08:47)
[2021-08-20] MEDS: SPIRONOLACTONE 25 MG TAB PO SCH (08:47)
[2021-08-20] MEDS: lisinopriL 10 MG TAB PO SCH (08:47)
[2021-08-20] MEDS ORDERED: FUROSEMIDE 40 MG TAB PO SCH (09:00)
--- NOTE | 2021-08-20 10:07 | P.PN ---
Subjective Progress Note Date: 08/20/21 HISTORY OF PRESENT ILLNESS: The patient is an 86-year-old female patient requested to see for further evaluation off shortness of breath as well as heart racing. She does have an e xtensive cardiovascular history consistent of history of stroke in 2019 and also non-ischemic cardiomyopathy as well as valvular heart disease with mitral and tricuspid regurgitation and also permanent atrial fibrillation on oral anticoagulation as well as hypertension and dyslipidemia. The patient somewhat is a poor historian but she has not been feeding well for the last few days patient has been experiencing symptoms of increasing shortness of breath without any chest pain or chest discomfort and without any dizziness or lightheadedness or presyncope or syncope. She developed also lower extremities edema. When she presented to the hospital her pressure was elevated. She stated that she has been compliant with her medications as well as with her diet. She underwent an EKG which showed underlying atrial fibrillation with LBBB. The chest x-ray seems to be consistent with heart failure. And the proBNP came in to be elevated at 13,000. The patient initially went and saw her primary care physician who referred the patient to the hospital for further evaluation. Beside the above extensive medical history she has she has also thoracic aortic stent graft. Previous echocardiogram from 2020 revealed impaired LV function was EF between 35-40% with moderate to severe mitral and tricuspid regurgitation and mild pulmonary hypertension. 08/18/2021 Patient examined this morning at the bedside. Patient reports not sleeping well overnight. She denies chest pain or pressure. Reports improvement in SOB. She continues to have shortness of breath with ambulation to the bathroom. She remains on IV lasix. Fluid balance over the last 24 hours is -1360cc. Blood pressure this morning 111/65. 08/19/2021 Patient examined this morning at the bedside. She denies chest pain or pressure. She continues to report shortness of breath and states it is about the same as yesterday. She states she is requiring oxygen otherwise she feels short of breath. 08/20/2021 Patient examined this morning at the bedside. She denies chest pain or pressure. She reports improvement in her shortness of breath. She does report having some difficulty swallowing this morning. She is on room air with oxygen saturations greater than 92%. Chest x-ray completed yesterday was negative for acute process. Patient remains on oral Lasix. PHYSICAL EXAM: VITAL SIGNS: Reviewed. GENERAL: Well-developed in no acute distress. NECK: Supple. No JVD or thyromegaly LUNGS: Respirations even and unlabored. Lungs diminished to auscultation bilaterally, left greater than right. HEART: Irregular rate and rhythm. S1 and S2 heard. Systolic murmur noted. EXTREMITIES: Normal range of motion. No clubbing or cyanosis. Peripheral pulses intact. Trace bilateral lower extremity edema, right greater than left ASSESSMENT: Hypertensive emergency Acute on chronic systolic congestive heart failure, EF 35% Valvular heart disease Chronic persistent atrial fibrillation History of TIA/CVA History of MDS PLAN: Continue current cardiac medications Patient is stable for discharge home today from a cardiac standpoint She is to follow up on an outpatient basis Nurse practitioner note has been reviewed by physician. Signing provider agrees with the documented findings, assessment, and plan of care. Objective - Vital Signs Vital signs: Vital Signs Temp 97.6 F 08/20/21 07:10 Pulse 62 08/20/21 07:10 Resp 18 08/20/21 07:10 BP 147/61 08/20/21 07:10 Pulse Ox 95 08/20/21 07:10 Intake & Output 08/19/21 08/20/21 08/20/21 18:59 06:59 18:59 Intake Total 712 240 236 Output Total 350 925 Balance 362 -685 236 Intake: Oral 712 240 236 Output: Urine 350 925 - Labs CBC & Chem 7: 08/18/21 04:28 08/19/21 04:57 Labs: Abnormal Lab Results - Last 24 Hours (Table) 08/19/21 Range/Units 04:57 Carbon Dioxide 29.4 H (20.0-27.5) mmol/L BUN 41.2 H (9.0-27.0) mg/dL Est GFR (CKD-EPI)AfAm 51.0 L (60.0-200.0) Est GFR (CKD-EPI)NonAf 44.0 L (60.0-200.0) BUN/Creatinine Ratio 36.46 H (12.00-20.00) Ratio
[2021-08-20] MEDS ORDERED: IPRATROPIUM-ALBUTEROL 3 ML NEB INHALATION PRN (11:02)
[2021-08-20 11:18] LABS: Anion Gap 14.7 mmol/L (10.00-18.00); BUN/Creat Ratio 40.46 Ratio (12.00-20.00); Blood Urea Nitrogen 52.6 mg/dL (9.0-27.0); Calcium 10.6 mg/dL (8.7-10.3); Carbon Dioxide 26.3 mmol/L (20.0-27.5); Magnesium 2.2 mg/dL (1.5-2.4); Non-African American GFR(CKD) 37.1 (60.0-200.0); Potassium 4.4 mmol/L (3.5-5.5)
[2021-08-20 11:34] VITALS: PULSE 76
--- NOTE | 2021-08-20 23:51 | P.DS ---
Providers Date of admission: 08/18/21 08:42 Attending physician: Petros Lynch MD Consults: 08/16/21 14:32 Consult Physician Routine Consulting Provider: Margaret Millan Consult Reason/Comments: chf, cp Do you want consulting provider notified?: Yes Primary care physician: Rahul Peralta [facility] Course: Diagnoses: Acute on chronic Chronic systolic CHF with EF 35-40% Chest pain, secondary to stable angina Hypertension uncontrolled admission. 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 History of coronary artery disease History of CVA/TIA History of GERD History of osteoarthritis Hypothyroidism History of aortic abdominal aneurysm History of duodenal ulcer History of colitis History of irritable bowel syndrome Hospital course: This is a pleasant 86 years old female with past medical history of Atrial Fibrillation, on Eliquis, Coronary Artery Disease on baby aspirin and metoprolo l, Heart Failure, CVA/TIA, Deep Vein Thrombosis and pulmonary embolism, GERD, Hyperlipidemia, Hypertension, Osteoarthritis hypothyroidism, MDS diagnosed in 2016 and takes oral chemo, aortic abdominal aneurysm, duodenal ulcer, colitis and irritable bowel syndrome. She is a patient of Dr. De La Rosa, She was sent from his office for chest pain, dyspnea and high blood pressure, paroxysmal nocturnal dyspnea. Patient was found to have acute systolic CHF and chest pain could be stable angina, which is improved with controlling of blood pressure and her heart failure however she might be still symptomatic with exertion. Patient was treated with IV Lasix which is wished to oral dose yesterday by precision machinist. Her breathing improved but we have to give her breathing treatment and I'll be controlled as provided for her upon discharge. She was on metoprolol, Norvasc and Imdur at home, lisinopril and Aldactone were added by precision machinist. And she is continues on her home dose of baby aspirin. Patient denies any other symptoms. Patient was cleared for discharge by precision machinist Problems and management plan were discussed with the patient and he verbalized understanding and acceptance Patient was found stable and can be discharged home in guarded prognosis however he needs follow-up as an outpatient. Patient was instructed to follow up with PCP Dr. De La Rosa within one week and patient agrees Patient was instructed to follow up with her precision machinist Dr. Virk in 1-2 weeks and she agrees to call and make these appointments (Patient already has appointment to see Dr Millan 08/28 @ 2:45) per staff Physical exam Gen: patient is a AAOx3, no distress CVS: S1-S2, RRR, no murmur Lungs: B/L CTA, no wheezing Abdomen: soft, no distention, no tenderness, positive bowel sounds Extremity: no leg edema or induration Time spent more than 35 minutes Plan - Discharge Summary Discharge Rx Participant: No New Discharge Prescriptions: New Spironolactone [Aldactone] 25 mg PO DAILY #30 tab amLODIPine [Norvasc] 10 mg PO DAILY #60 tab Albuterol Inhaler [Ventolin Hfa Inhaler] 2 puff INHALATION RT-QID #8 gm Furosemide [Lasix] 40 mg PO DAILY #30 tab Cyanocobalamin [Vitamin B-12] 1,000 mcg PO DAILY #30 tab lisinopriL [Zestril] 10 mg PO DAILY #30 tab Continue Levothyroxine Sodium [Synthroid] 100 mcg PO DAILY@0600 Metoprolol Succinate [Toprol XL] 100 mg PO DAILY@0700 Isosorbide Mononitrate ER [Imdur] 60 mg PO DAILY@0700 Melatonin 5 mg PO HS PRN PRN Reason: Insomnia rOPINIRole HCL [Requip] 0.25 mg PO HS Loperamide [Imodium] 2 mg PO TID PRN PRN Reason: Diarrhea Apixaban [Eliquis] 2.5 mg PO BID@0800,2000 Ergocalciferol (Vitamin D2) [Drisdol (50,000 Iu)] 1,250 mcg PO Q30D Atorvastatin Calcium [Lipitor] 20 mg PO DAILY@0700 Cinacalcet [Sensipar] 30 mg PO MOFR@0700 Aspirin 81 mg PO HS Discontinued Furosemide [Lasix] 20 mg PO DAILY Furosemide [Lasix] 20 mg PO DAILY PRN PRN Reason: Edema Discharge Medication List Levothyroxine Sodium [Synthroid] 100 mcg PO DAILY@0600 09/10/16 [History] Metoprolol Succinate [Toprol XL] 100 mg PO DAILY@0700 09/10/16 [History] Isosorbide Mononitrate ER [Imdur] 60 mg PO DAILY@0700 09/28/19 [History] Melatonin 5 mg PO HS PRN 09/28/19 [History] rOPINIRole HCL [Requip] 0.25 mg PO HS 09/28/19 [History] Apixaban [Eliquis] 2.5 mg PO BID@0800,2000 02/16/21 [History] Cinacalcet [Sensipar] 30 mg PO MOFR@0702/16/21 [History] Ergocalciferol (Vitamin D2) [Drisdol (50,000 Iu)] 1,250 mcg PO Q30D 02/16/21 [History] Loperamide [Imodium] 2 mg PO TID PRN 02/16/21 [History] Aspirin 81 mg PO HS 03/02/21 [History] Atorvastatin Calcium [Lipitor] 20 mg PO DAILY@0700 03/02/21 [History] Albuterol Inhaler [Ventolin Hfa Inhaler] 2 puff INHALATION RT-QID #8 gm 08/20/21 [Rx] Cyanocobalamin [Vitamin B-12] 1,000 mcg PO DAILY #30 tab 08/20/21 [Rx] Furosemide [Lasix] 40 mg PO DAILY #30 tab 08/20/21 [Rx] Spironolactone [Aldactone] 25 mg PO DAILY #30 tab 08/20/21 [Rx] amLODIPine [Norvasc] 10 mg PO DAILY #60 tab 08/20/21 [Rx] lisinopriL [Zestril] 10 mg PO DAILY #30 tab 08/20/21 [Rx] Follow up Appointment(s)/Referral(s): [facility] [Provider Group] - 1 Week (Patient already has appointment to see Dr Millan 08/28 @ 2:45) Fabian Kay MD [Primary Care Provider] - 1-2 days [facility] Visiting Nurse, [NON-STAFF] - 1-2 Days Patient Instructions/Handouts: Heart Failure (DC) Activity/Diet/Wound Care/Special Instructions: Heart healthy diet, we recommend fluid and salt restriction Activity is restricted till you see your doctor Discharge Disposition: HOME SELF-CARE
== END 2021-08-20 12:18 | disposition home or self-care (01) | DRG 291 ==
LOC: EC 12:09 → 6NMEDSUR 14:32 → OBSVTOIN 08-18 08:42
PROVIDERS: ADMIT Internal Medicine; ATTEND Internal Medicine
DX: I13.0 Hypertensive heart and chronic kidney disease with heart failure and stage 1 through stage 4 chronic kidney disease, or unspecified chronic kidney disease (principal); I50.23 Acute on chronic systolic (congestive) heart failure; D61.818 Other pancytopenia; I16.1 Hypertensive emergency; I48.21 Permanent atrial fibrillation; I42.8 Other cardiomyopathies; D46.9 Myelodysplastic syndrome, unspecified; E03.9 Hypothyroidism, unspecified; E78.5 Hyperlipidemia, unspecified; I08.1 Rheumatic disorders of both mitral and tricuspid valves; I25.118 Atherosclerotic heart disease of native coronary artery with other forms of angina pectoris; I25.2 Old myocardial infarction; I27.20 Pulmonary hypertension, unspecified; I44.7 Left bundle-branch block, unspecified; N18.30 Chronic kidney disease, stage 3 unspecified; R13.10 Dysphagia, unspecified; Z20.822 Contact with and (suspected) exposure to COVID-19; Z79.01 Long term (current) use of anticoagulants; Z79.82 Long term (current) use of aspirin; Z79.890 Hormone replacement therapy; Z79.899 Other long term (current) drug therapy; Z82.49 Family history of ischemic heart disease and other diseases of the circulatory system; Z82.5 Family history of asthma and other chronic lower respiratory diseases; Z86.711 Personal history of pulmonary embolism; Z86.72 Personal history of thrombophlebitis; Z86.73 Personal history of transient ischemic attack (TIA), and cerebral infarction without residual deficits; Z86.79 Personal history of other diseases of the circulatory system; Z87.11 Personal history of peptic ulcer disease; Z90.710 Acquired absence of both cervix and uterus; Z88.2 Allergy status to sulfonamides; Z88.8 Allergy status to other drugs, medicaments and biological substances; Z91.010 Allergy to peanuts
CPT/HCPCS: 36415; 71046; 80048; 80053; 81003; 82607; 82746; 83735; 83880; 84484; 85025; 85610; 85730; 87635; 93005; 94640; 99285

== ENCOUNTER 2021-09-12 11:45 | Inpatient (IN) | payer MEDICARE, BC ==
--- NOTE | 2021-09-12 12:44 | ED ---
General Adult HPI - General Chief complaint: Extremity Injury, Lower Stated complaint: possible blood clot in leg Time Seen by Provider: 09/12/21 12:35 Source: patient, RN notes reviewed, old records reviewed Mode of arrival: ambulatory Limitations: no limitations - History of Present Illness Initial comments: 86-year-old well-appearing female, alert and oriented 4, presents to the emergency room with complaints of shortness of breath for the past 2 weeks and 3 days of right calf pain with redness that appeared yesterday. She states it is worse with palpation. She states that the pain goes up into her right hip. She does have a history of DVTs and is on is on eliquis. She states that yesterday she did feel dizzy and fell in the bathroom but she caught herself, did not hit her head or lose consciousness. She also noticed a rash to her lower extremities and hands. -: days(s) (3) Location: right, lower extremity (calf) Radiation: non-radiation Severity scale (1-10): 6 Quality: aching Consistency: constant Improves with: none Worsens with: movement, other (palpatin) Associated Symptoms: shortness of breath, other (dizziness) - Related Data Home Medications Medication Instructions Recorded Confirmed Levothyroxine Sodium [Synthroid] 100 mcg PO [id number] 09/10/16 09/12/21 Metoprolol Succinate [Toprol XL] 100 mg PO DAILY 09/10/16 09/12/21 Isosorbide Mononitrate ER [Imdur] 60 mg PO DAILY 09/28/19 09/12/21 Melatonin 5 mg PO HS PRN 09/28/19 09/12/21 rOPINIRole HCL [Requip] 0.25 mg PO HS 09/28/19 09/12/21 Apixaban [Eliquis] 2.5 mg PO BID 02/16/21 09/12/21 Cinacalcet [Sensipar] 30 mg PO MOFR@0700 02/16/21 09/12/21 Ergocalciferol (Vitamin D2) 1,250 mcg PO Q30D 02/16/21 09/12/21 [Drisdol (50,000 Iu)] Loperamide [Imodium] 2 mg PO TID PRN 02/16/21 09/12/21 Atorvastatin Calcium [Lipitor] 20 mg PO DAILY 03/02/21 09/12/21 Amitriptyline HCl [Elavil] 10 mg PO HS 09/12/21 09/12/21 Aspirin EC [Ecotrin Low Dose] 81 mg PO DAILY 09/12/21 09/12/21 Triamcinolone 0.1% Cream [Kenalog 1 applic TOPICAL BID 09/12/21 09/12/21 0.1% Cream] Previous Rx's Medication Instructions Recorded Albuterol Inhaler [Ventolin Hfa 2 puff INHALATION RT-QID #8 gm 08/20/21 Inhaler] Cyanocobalamin [Vitamin B-12] 1,000 mcg PO DAILY #30 tab 08/20/21 Furosemide [Lasix] 40 mg PO DAILY #30 tab 08/20/21 Spironolactone [Aldactone] 25 mg PO DAILY #30 tab 08/20/21 amLODIPine [Norvasc] 10 mg PO DAILY #60 tab 08/20/21 lisinopriL [Zestril] 10 mg PO DAILY #30 tab 08/20/21 Allergies Allergy/AdvReac Type Severity Reaction Status Date / Time black pepper Allergy Severe Anaphylaxis Verified 09/12/21 14:15 Influenza Virus Vaccines Allergy Severe Unknown Verified 09/12/21 14:15 peanut Allergy Severe Anaphylaxis Verified 09/12/21 14:15 prednisone Allergy Severe Dyspnea Verified 09/12/21 14:15 atropine [From ] Allergy Unknown Verified 09/12/21 14:15 chocolate flavor Allergy Itching Verified 09/12/21 14:15 hyoscyamine [From ] Allergy Unknown Verified 09/12/21 14:15 Iodinated Contrast Media Allergy Swelling Verified 09/12/21 14:15 [Iodinated Contrast Media - IV Dye] phenobarbital [From ] Allergy Unknown Verified 09/12/21 14:15 propoxyphene [From [place]] Allergy Unknown Verified 09/12/21 14:15 scopolamine [From ] Allergy Unknown Verified 09/12/21 14:15 Sulfa (Sulfonamide Allergy Rash/Hives Verified 09/12/21 14:15 Antibiotics) venom-honey bee Allergy Unknown Verified 09/12/21 14:15 [bee venom (honey bee)] acetaminophen [From [place]] AdvReac Hallucinati Verified 09/12/21 14:15 ons belladonna alkaloids AdvReac Unknown Verified 09/12/21 14:15 hydrocodone [From [place]] AdvReac Hallucinati Verified 09/12/21 14:15 ons simvastatin [From Zocor] AdvReac WEAKNESS Verified 09/12/21 14:15 SMELT Allergy Itching Uncoded 09/12/21 14:15 Review of Systems ROS Statement: Those systems with pertinent positive or pertinent negative responses have been documented in the HPI. ROS Other: All systems not noted in ROS Statement are negative. Past Medical History Past Medical History: Atrial Fibrillation, Blood Disorder, Coronary Artery Disease (CAD), Chest Pain / Angina, Heart Failure, CVA/TIA, Deep Vein Thrombosis (DVT), Eye Disorder, GERD/Reflux, Hyperlipidemia, Hypertension, Myocardial Infarction (MO), Osteoarthritis (OA), Pneumonia, Syncope, Thyroid Disorder, Vascular Disorder Additional Past Medical History / Comment(s): Pt hx afib,. 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 DVTs multiple in R leg and once in L arm, PEs- showering pulmonary embolisms bilateral lungs, chronic thrombophlebitis, coronary blockages, leaky cardiac valves, AAA thoracic and abdominal both stented, duodenal ulcer, hiatal hernia, diverticular dx, colitis, IBS, H. Pylori, frequent diarrhea, chronic anemia, bronchitis, pneumonias, macular degeneration bilaterally, syncopal episodes. Last Myocardial Infarction Date:: UNKNOWN History of Any Multi-Drug Resistant Organisms: None Reported Past Surgical History: Appendectomy, Cholecystectomy, Heart Catheterization, Hysterectomy Additional Past Surgical History / Comment(s): 09/2015 thoracic aortic aneurysm s tent, 07/2017 thoracic aortic aneurysm stent leaking and another stent placed as well as abdominal aortic aneurysm stented, cardiac caths, green field filter, bone marrow aspiration, exploratory lap for adhesions, EGD/colonoscopies with benign polypectomy, hemorrhoidectomy, R leg vein stripping. Past Anesthesia/Blood Transfusion Reactions: Blood Transfusion Reaction Additional Past Anesthesia/Blood Transfusion Reaction / Comment(s): Heart failure/fluid overload Past Psychological History: No Psychological Hx Reported Smoking Status: Never smoker, Unknown if ever smoked Past Alcohol Use History: None Reported Past Drug Use History: None Reported - Past Family History Father Family Medical History: Coronary Artery Disease (CAD), Myocardial Infarction (MO) Mother Family Medical History: COPD, Coronary Artery Disease (CAD), Deep Vein Thrombosis (DVT) Brother(s) Family Medical History: Coronary Artery Disease (CAD), Myocardial Infarction (MO) Sister(s) Family Medical History: Cancer Additional Family Medical History / Comment(s): Uterine General Exam Limitations: no limitations General appearance: alert, in no apparent distress Head exam: Present: atraumatic, normocephalic, normal inspection, other (bruising to right lower mandible ; right-sided facial droop from previous CVA) Eye exam: Present: normal appearance, PERRL, EOMI. Absent: scleral icterus, conjunctival injection, periorbital swelling, periorbital tenderness ENT exam: Present: normal exam, normal oropharynx, mucous membranes moist Neck exam: Present: normal inspection, full ROM. Absent: tenderness, meningismus, lymphadenopathy Respiratory exam: Present: normal lung sounds bilaterally. Absent: respiratory distress, wheezes, rales, rhonchi, stridor, chest wall tenderness, accessory muscle use Cardiovascular Exam: Present: regular rate, normal rhythm, normal heart sounds. Absent: systolic murmur, diastolic murmur, rubs, gallop, clicks, JVD GI/Abdominal exam: Present: soft, normal bowel sounds. Absent: distended, tenderness, guarding, rebound, rigid Right Hip exam: Present: normal inspection. Absent: tenderness Upper Leg exam: Present: normal inspection. Absent: tenderness Knee exam: Absent: tenderness Lower Leg exam: Present: full ROM, tenderness, swelling, erythema (Patches of erythema with purpura), Homans' sign. Absent: abrasion, laceration, deformity, crepitus, dislocation Neurovascular tendon exam: Present: no vascular compromise. Absent: abnormal cap refill, extremity cold to touch, pallor Left Upper Leg exam: Present: normal inspection. Absent: tenderness Knee exam: Present: normal inspection. Absent: tenderness Lower Leg exam: Present: normal inspection. Absent: tenderness Ankle exam: Absent: tenderness, swelling Foot/Toe exam: Present: ecchymosis (Purpura to feet). Absent: tenderness, swelling Neurovascular tendon exam: Present: no vascular compromise. Absent: abnormal cap refill, extremity cold to touch, pallor Neurological exam: Present: alert, oriented X3 Psychiatric exam: Present: normal affect, normal mood Skin exam: Present: warm, dry, intact, normal color, other (Purpura to bilateral feet dorsal surface and right lower extremity). Absent: rash, cyanosis, diaphoretic Course Vital Signs 09/12/21 09/12/21 12:15 15:57 Temperature 98.2 F 97.5 F L Pulse Rate 81 85 Respiratory 20 18 Rate Blood Pressure 123/43 106/64 O2 Sat by Pulse 99 97 Oximetry EKG Findings - EKG Results: EKG: not changed from: (08/16/2021) EKG shows: atrial fibrillation (Ventricular rate of 74, QRS 0.172, QTC 0.461) Medical Decision Making - Medical Decision Making 86-year-old well-appearing female presents with complaints of shortness of breath for the past 2 weeks and 3 days of right calf pain with redness that appeared yesterday. She states it is worse with palpation. She does have a history of DVTs and is on is on eliquis. She also recently noticed a rash to her lower extremities and hands. She denies any abnormal bleeding. She has a hi story of atrial fibrillation, hypertension, MO, osteoarthritis, and vascular disease. She also has a history of myelodysplastic syndrome and seen Dr. Gibbs a month ago. Ultrasound of the right lower extremity is negative for DVT. Patient does take eliquis for atrial fibrillation. This does not appear to be cellulitic. There is evidence of purpura to bilateral lower extremities. Pedal pulses are present bilaterally. Legs are pink, warm and dry. Patient is afebrile. White blood cell count is 1.2 which is decreased from September 09, 2021 when it was 1.7. Her neutrophil count is 0.11. Chest x-ray shows a upper thoracic aortic aneurysm that was measured at 7.8 on August 19, increase in size to 7.6. Vital signs are stable. Patient will be admitted with hematology oncology on consult. Case discussed with Dr. Loaiza. - Lab Data Result diagrams: 09/12/21 13:03 09/12/21 13:03 Lab Results 09/12/21 09/12/21 09/12/21 Range/Units 13:03 13:03 13:03 WBC 1.2 L* (3.8-10.6) k/uL RBC 3.53 L (3.80-5.40) m/uL Hgb 11.9 (11.4-16.0) gm/dL Hct 36.5 (34.0-46.0) % MCV 103.3 H (80.0-100.0) fL MCH 33.7 (25.0-35.0) pg MCHC 32.6 (31.0-37.0) g/dL RDW 16.3 H (11.5-15.5) % Plt Count 41 L D (150-450) k/uL MPV 10.1 Neutrophils % (Manual) 9 % Lymphocytes % (Manual) 71 % Monocytes % (Manual) 20 % Neutrophils # (Manual) 0.11 L* (1.3-7.7) k/uL Lymphocytes # (Manual) 0.85 L (1.0-4.8) k/uL Monocytes # (Manual) 0.24 (0-1.0) k/uL Nucleated RBCs 0 (0-0) /100 WBC Manual Slide Review Performed Anisocytosis Slight Macrocytosis Moderate PT 11.3 (9.0-12.0) sec INR 1.1 (<1.2) Sodium 132 L (137-145) mmol/L Potassium 5.5 H (3.5-5.1) mmol/L Chloride 100 (98-107) mmol/L Carbon Dioxide 21 L (22-30) mmol/L Anion Gap 11 mmol/L BUN 83 H (7-17) mg/dL Creatinine 1.84 H (0.52-1.04) mg/dL Est GFR (CKD-EPI)AfAm 28 (>60 ml/min/1.73 sqM) Est GFR (CKD-EPI)NonAf 25 (>60 ml/min/1.73 sqM) Glucose 117 H (74-99) mg/dL Plasma Lactic Acid Adrian (0.7-2.0) mmol/L Calcium 10.3 H (8.4-10.2) mg/dL Total Bilirubin 1.0 (0.2-1.3) mg/dL AST 23 (14-36) U/L ALT 16 (4-34) U/L Alkaline Phosphatase 65 (38-126) U/L Troponin I (0.000-0.034) ng/mL Total Protein 7.5 (6.3-8.2) g/dL Albumin 4.0 (3.5-5.0) g/dL 09/12/21 09/12/21 Range/Units 13:03 13:03 WBC (3.8-10.6) k/uL RBC (3.80-5.40) m/uL Hgb (11.4-16.0) gm/dL Hct (34.0-46.0) % MCV (80.0-100.0) fL MCH (25.0-35.0) pg MCHC (31.0-37.0) g/dL RDW (11.5-15.5) % Plt Count (150-450) k/uL MPV Neutrophils % (Manual) % Lymphocytes % (Manual) % Monocytes % (Manual) % Neutrophils # (Manual) (1.3-7.7) k/uL Lymphocytes # (Manual) (1.0-4.8) k/uL Monocytes # (Manual) (0-1.0) k/uL Nucleated RBCs (0-0) /100 WBC Manual Slide Review Anisocytosis Macrocytosis PT (9.0-12.0) sec INR (<1.2) Sodium (137-145) mmol/L Potassium (3.5-5.1) mmol/L Chloride (98-107) mmol/L Carbon Dioxide (22-30) mmol/L Anion Gap mmol/L BUN (7-17) mg/dL Creatinine (0.52-1.04) mg/dL Est GFR (CKD-EPI)AfAm (>60 ml/min/1.73 sqM) Est GFR (CKD-EPI)NonAf (>60 ml/min/1.73 sqM) Glucose (74-99) mg/dL Plasma Lactic Acid Adrian 1.6 (0.7-2.0) mmol/L Calcium (8.4-10.2) mg/dL Total Bilirubin (0.2-1.3) mg/dL AST (14-36) U/L ALT (4-34) U/L Alkaline Phosphatase (38-126) U/L Troponin I 0.020 (0.000-0.034) ng/mL Total Protein (6.3-8.2) g/dL Albumin (3.5-5.0) g/dL Disposition Clinical Impression: Swelling of right lower extremity, Neutropenia, Myelodysplastic syndrome Disposition: ADMITTED IP TO THIS [facility] Decision Date: 09/12/21 Decision Time: 14:28
[2021-09-12 13:16] LABS: Anisocytosis Slight; HCT 36.5 % (34.0-46.0); HGB 11.9 gm/dL (11.4-16.0); MCH 33.7 pg (25.0-35.0); MCHC 32.6 g/dL (31.0-37.0); MCV 103.3 fL (80.0-100.0); Macrocytosis Moderate; Mean Platelet Volume 10.1; RBC 3.53 m/uL (3.80-5.40); RDW 16.3 % (11.5-15.5)
[2021-09-12 13:21] LABS: INR 1.1 (<1.2); Prothrombin Time 11.3 sec (9.0-12.0)
[2021-09-12 13:29] LABS: WBC 1.2 k/uL (3.8-10.6)
--- NOTE | 2021-09-12 13:32 | XR ---
EXAMINATION TYPE: XR chest 2V DATE OF EXAM: 09/12/2021 COMPARISON: 08/19/2021 HISTORY: 86 year-old female shortness of breath TECHNIQUE: AP and lateral views FINDINGS: Heart borderline enlarged. Thoracic aorta endovascular stent graft extending from the upper ascending aorta down to the thoracoabdominal junction. Negative for bulging along the upper descending thoraci c aorta up to 1 cm beyond the stent graft is similar to prior exam on the AP view. Possible fusiform dilatation up to 7.6 cm on the lateral view (versus 7.3 cm, previously). Marked tortuosity is noted. No consolidation or pleural effusion. There is narrowing of the subacromial space in both size that c ould reflect underlying chronic rotator cuff tears. IMPRESSION: 1. Borderline cardiomegaly and chronic changes. No definite acute process. 2. Thoracic aortic endovascular stent graft. There is focal fusiform aneurysmal dilatation of the mya jorge alberto sac along the upper descending thoracic aorta estimated up to 7.6 cm on the lateral view (versus 7.3 cm, previously).
[2021-09-12 13:35] LABS: Calcium 10.3 mg/dL (8.4-10.2); Potassium 5.5 mmol/L (3.5-5.1); Total Protein 7.5 g/dL (6.3-8.2)
--- NOTE | 2021-09-12 13:52 | US ---
EXAMINATION TYPE: US venous doppler duplex LE RT DATE OF EXAM: 09/12/2021 1:43 PM COMPARISON: US LLE 2018 CLINICAL HISTORY: pain. Right leg pain, patient on blood thinners, history of LLE DVT SIDE PERFORMED: Left TECHNIQUE: The lower extremity deep venous system is examined utilizing real time linear array sonog jose with graded compression, doppler sonography and color-flow sonography. VESSELS IMAGED: Common Femoral Vein Deep Femoral Vein Greater Saphenous Vein * Femoral Vein Popliteal Vein Small Saphenous Vein * Proximal Calf Veins (* superficial vessels) Left Leg: Appears negative for DVT Previous 2018 left lower extremity DVT not identified this time. IMPRESSION: 1. Left lower extremity ultrasound negative for deep venous thrombosis.
[2021-09-12 14:05] LABS: Neutrophils % (M) 9 %
[2021-09-12 14:08] LABS: Lymphocytes # (M) 0.85 k/uL (1.0-4.8); Monocytes # (M) 0.24 k/uL (0-1.0); Neutrophils # (M) 0.11 k/uL (1.3-7.7); Nucleated Red Blood Cells 0 /100 WBC (0-0); Total Cells Counted 100
[2021-09-12 14:13] LABS: Platelet Count 41 k/uL (150-450)
[2021-09-12] MEDS ORDERED: NALOXONE 0.4 MG/ML 1 ML VIAL IV PRN (14:28)
[2021-09-12] MEDS ORDERED: LOPERAMIDE 2 MG CAP PO PRN (14:33)
[2021-09-12] MEDS ORDERED: MELATONIN 5 MG TABLET PO PRN (14:33)
[2021-09-12 14:56] LABS: Appearance,Urine Cloudy (Clear); Bacteria,Urine Many /hpf; Bilirubin,Urine Negative (Negative); Blood,Urine Negative (Negative); Color,Urine Yellow; Glucose,Urine (UA) Negative (Negative); Hyaline Casts,Urine 25 /lpf (0-2); Ketones,Urine Negative (Negative); Leukocyte Esterase,Urine Small (Negative); Mucus,Urine Rare /hpf; Nitrite,Urine Negative (Negative); Protein,Urine Trace (Negative); RBC,Urine 3 /hpf (0-5); Specific Gravity,Urine 1.012 (1.001-1.035); Squamous Epithelial Cell,Urine 7 /hpf (0-4); Urobilinogen,Urine <2.0 mg/dL (<2.0); WBC,Urine 22 /hpf (0-5)
--- NOTE | 2021-09-12 18:25 | HP ---
HISTORY AND PHYSICAL CHIEF COMPLAINT: Pain in the right leg and weakness. HISTORY OF PRESENT ILLNESS: This 86-year-old woman with a medical history of multiple medical problems, including history of atrial fibrillation, history of of DVT, GERD, and multiple other medical issues, being followed by Dr. Kay in the outpatient setting, was recently admitted to [facility] with complaints of CHF. Ejection fraction was found to be 35% to 40%. Patient improved significantly. Patient went home; however, currently the patient complains of generalized weakness and leg swelling also. DVT was suspected. V/Q is negative. Patient also had some lesions. The patient also had thrombocytopenia. The patient has not taken any COVID vaccine yet. The patient also had renal failure. Creatinine was found to be 1.84 with some mild hyperkalemia. COVID-19 initial report has been negative. UA showed significant UTI also. There is no history of any fever, rigors or chills. No history of headache, loss of consciousness, seizures at this time. PAST MEDICAL HISTORY: History of atrial fibrillation, history of CAD, history of chest pain, CHF, CVA, TIA, DVT, GERD, hypertension, hyperlipidemia. HOME MEDICATIONS: Reviewed. They include Requip, melatonin, Imodium, Synthroid, Zestril, Norvasc, Kenalog, Aldactone, Toprol XL, Imdur. Doses and other medications are reviewed. ALLERGIES: BLACK PEPPER, INFLUENZA, PEANUTS, PREDNISONE, ATROPINE . Other allergies also reviewed. REVIEW OF SYSTEMS: CARDIOVASCULAR SYSTEM: No angina, palpitations. RESPIRATORY SYSTEM: No cough, hemoptysis. GI: As mentioned earlier. : No dysuria. NERVOUS SYSTEM: As mentioned earlier. ALLERGY/IMMUNOLOGY: No asthma or hay fever. MUSCULOSKELETAL: As mentioned earlier. HEMATOLOGY/ONCOLOGY: Negative. ENDOCRINE: As mentioned earlier. CONSTITUTIONAL: As mentioned earlier. DERMATOLOGY: Negative. RHEUMATOLOGY: Negative. PSYCHIATRY: As mentioned earlier. PHYSICAL EXAMINATION: Patient alert and oriented x3. The pulse is 85, blood pressure 106/64, respiration 18, temperature 97.5, pulse ox 97% on room air. HEENT: Conjunctivae pale. NECK: No jugular venous distention. CARDIOVASCULAR: S1, S2 muffled. RESPIRATION: Breath sounds diminished at the bases. A few scattered rhonchi and crackles. ABDOMEN: Soft, non-tender. LEGS: Right leg swelling. Multiple diffuse petechiae also present. NERVOUS SYSTEM: Higher functions as mentioned earlier. Moves all 4 limbs. No focal motor or sensory deficit. LYMPHATICS: No lymph node palpable in neck, axillae or groin. SKIN: As mentioned earlier. JOINTS: No active deforming arthropathy. LABS: WBC 1.3, hemoglobin is 11.9, platelets are 41. Sodium 133, potassium 3.5 and creatinine is 1.84. ASSESSMENT: 1. Thrombocytopenia as well as leukopenia. Rule out hematological malignancy. 2. Thrombocytopenia; thrombocytic purpura. 3. Acute renal failure with acute tubular necrosis. 4. Hyponatremia. 5. Hypokalemia. 6. Possible urinary tract infection, present on admission. 7. History of atrial fibrillation. 8. History of congestive heart failure with chronic systolic dysfunction, ejection fraction 30% to 35%. 9. History of coronary artery disease. 10.History of cerebrovascular accident, transient ischemic attack. 11.History of deep vein thrombosis. 12.History of gastroesophageal reflux disease. 13.Hypertension. 14.Hyperlipidemia. 15.History of myocardial infarction. 16.History of pneumonia. 17.History of syncope. 18.History of MDS. 19.History of multiple deep vein thromboses. 20.History of appendectomy. 21.History of cholecystectomy. 22.FULL CODE. RECOMMENDATIONS AND DISCUSSION: In this 86-year-old woman who presented with multiple complex medical issues, we will monitor the patient closely, continue the current medications, continue with symptomatic treatment. Otherwise at this time I recommend repeat labs, hematology/oncology evaluation. DVT has been negative. Symptomatic treatment will be provided. Prognosis is guarded because of multiple complex medical issues. Further recommendations to follow. A copy of this dictation is being forwarded to Dr. Kay, who is the primary physician. MMODL / IJN: [id number] / MTDMonty
[2021-09-12] MEDS: ALBUTEROL NEBULIZED 2.5 MG/3 ML INHALATION SCH ×2 (19:04→19:28)
--- NOTE | 2021-09-12 19:26 | P.CONS ---
History of Present Illness - Reason for Consult Consult date: 09/12/21 Pancytopenia, hx:MDS, Bilateral extremity skin changes Requesting physician: Chris Andrade - Chief Complaint Skin Changes - History of Present Illness Mrs. Aragon is a known to our practice, under the care of Dr. Coleman and has been stable on observation for her known diagnosis of MDS. She was last seen in July and at that time it was noted there was the start of skin changes in her bilateral feet, she was advised to follow-up with cardiology for the suspicion of ischemic changes. Her WBC was stable at 3.9, platelets approx. 100K. She now presents to emergency department with worsening discolorization of BUE and BLE extremities, extremities are cold to touch. Her WBC count is decreased on admission at 1.2, platelets 41K, slight left shift. Renal function increased mildly creatinine 1.8, Calcium 10.4. Review of Systems All systems: negative Constitutional: Reports as per HPI Past Medical History Past Medical History: Atrial Fibrillation, Blood Disorder, Coronary Artery Disease (CAD), Chest Pain / Angina, Heart Failure, CVA/TIA, Deep Vein Thrombosis (DVT), Eye Disorder, GERD/Reflux, Hyperlipidemia, Hypertension, Myocardial Infarction ([place]), Osteoarthritis (OA), Pneumonia, Syncope, Thyroid Disorder, Vascular Disorder Additional Past Medical History / Comment(s): Pt hx afib,. MDS diagnosed in 2015 and takes oral chemo,. DVTs multiple in R leg and once in L arm, PEs- showering pulmonary embolisms bilateral lungs, chronic thrombophlebitis, coronary blockages, leaky cardiac valves, AAA thoracic and abdominal both stente d, duodenal ulcer, hiatal hernia, diverticular dx, colitis, IBS, H. Pylori, frequent diarrhea, chronic anemia, bronchitis, pneumonias, macular degeneration bilaterally, syncopal episodes. Last Myocardial Infarction Date:: UNKNOWN History of Any Multi-Drug Resistant Organisms: None Reported Past Surgical History: Appendectomy, Cholecystectomy, Heart Catheterization, Hysterectomy Additional Past Surgical History / Comment(s): 09/2015 thoracic aortic aneurysm stent, 07/2017 thoracic aortic aneurysm stent leaking and another stent placed as well as abdominal aortic aneurysm stented, cardiac caths, green field filter, bone marrow aspiration, exploratory lap for adhesions, EGD/colonoscopies with be nign polypectomy, hemorrhoidectomy, R leg vein stripping. Past Anesthesia/Blood Transfusion Reactions: Blood Transfusion Reaction Additional Past Anesthesia/Blood Transfusion Reaction / Comm: Heart failure/fluid overload Past Psychological History: No Psychological Hx Reported Smoking Status: Never smoker, Unknown if ever smoked Past Alcohol Use History: None Reported Past Drug Use History: None Reported - Past Family History Father Family Medical History: Coronary Artery Disease (CAD), Myocardial Infarction ([place]) Mother Family Medical History: COPD, Coronary Artery Disease (CAD), Deep Vein Thrombosis (DVT) Brother(s) Family Medical History: Coronary Artery Disease (CAD), Myocardial Infarction ([place]) Sister(s) Family Medical History: Cancer Additional Family Medical History / Comment(s): Uterine Medications and Allergies Home Medications Medication Instructions Recorded Confirmed Type Levothyroxine Sodium [Synthroid] 100 mcg PO AC-BRKFST 09/10/16 09/12/21 History Metoprolol Succinate [Toprol XL] 100 mg PO DAILY 09/10/16 09/12/21 History Isosorbide Mononitrate ER [Imdur] 60 mg PO DAILY 09/28/19 09/12/21 History Melatonin 5 mg PO HS PRN 09/28/19 09/12/21 History rOPINIRole HCL [Requip] 0.25 mg PO HS 09/28/19 09/12/21 History Apixaban [Eliquis] 2.5 mg PO BID 02/16/21 09/12/21 History Cinacalcet [Sensipar] 30 mg PO MOFR@0700 02/16/21 09/12/21 History Ergocalciferol (Vitamin D2) 1,250 mcg PO Q30D 02/16/21 09/12/21 History [Drisdol (50,000 Iu)] Loperamide [Imodium] 2 mg PO TID PRN 02/16/21 09/12/21 History Atorvastatin Calcium [Lipitor] 20 mg PO DAILY 03/02/21 09/12/21 History Albuterol Inhaler [Ventolin Hfa 2 puff INHALATION RT-QID #8 gm 08/20/21 09/12/21 Rx Inhaler] Cyanocobalamin [Vitamin B-12] 1,000 mcg PO DAILY #30 tab 08/20/21 09/12/21 Rx Furosemide [Lasix] 40 mg PO DAILY #30 tab 08/20/21 09/12/21 Rx Spironolactone [Aldactone] 25 mg PO DAILY #30 tab 08/20/21 09/12/21 Rx amLODIPine [Norvasc] 10 mg PO DAILY #60 tab 08/20/21 09/12/21 Rx lisinopriL [Zestril] 10 mg PO DAILY #30 tab 08/20/21 09/12/21 Rx Amitriptyline HCl [Elavil] 10 mg PO HS 09/12/21 09/12/21 History Aspirin EC [Ecotrin Low Dose] 81 mg PO DAILY 09/12/21 09/12/21 History Triamcinolone 0.1% Cream [Kenalog 1 applic TOPICAL BID 09/12/21 09/12/21 History 0.1% Cream] Allergies Allergy/AdvReac Type Severity Reaction Status Date / Time black pepper Allergy Severe Anaphylaxis Verified 09/12/21 14:15 Influenza Virus Vaccines Allergy Severe Unknown Verified 09/12/21 14:15 peanut Allergy Severe Anaphylaxis Verified 09/12/21 14:15 prednisone Allergy Severe Dyspnea Verified 09/12/21 14:15 atropine [From ] Allergy Unknown Verified 09/12/21 14:15 chocolate flavor Allergy Itching Verified 09/12/21 14:15 hyoscyamine [From ] Allergy Unknown Verified 09/12/21 14:15 Iodinated Contrast Media Allergy Swelling Verified 09/12/21 14:15 [Iodinated Contrast Media - IV Dye] phenobarbital [From ] Allergy Unknown Verified 09/12/21 14:15 propoxyphene [From [place]] Allergy Unknown Verified 09/12/21 14:15 scopolamine [From ] Allergy Unknown Verified 09/12/21 14:15 Sulfa (Sulfonamide Allergy Rash/Hives Verified 09/12/21 14:15 Antibiotics) venom-honey bee Allergy Unknown Verified 09/12/21 14:15 [bee venom (honey bee)] acetaminophen [From [place]] AdvReac Hallucinati Verified 09/12/21 14:15 ons belladonna alkaloids AdvReac Unknown Verified 09/12/21 14:15 hydrocodone [From [place]] AdvReac Hallucinati Verified 09/12/21 14:15 ons simvastatin [From Zocor] AdvReac WEAKNESS Verified 09/12/21 14:15 SMELT Allergy Itching Uncoded 09/12/21 14:15 Physical Exam Vitals: Vital Signs Temp Pulse Resp BP Pulse Ox 09/12/21 12:15 98.2 F 81 20 123/43 99 Intake and Output 09/12/21 09/12/21 09/12/21 06:59 14:59 22:59 Other: Weight 68.039 kg Alert Mild increased respiratory effort with speaking HR: Irr Extremities Discolorization and darkening of bilateral upper and lower extremities, cool to touch Abdomen soft, NT Lungs: CTA, mild increased inspiration Results CBC & Chem 7: 09/12/21 13:03 09/12/21 13:03 Labs: Abnormal Lab Results - Last 24 Hours (Table) 09/12/21 09/12/21 09/12/21 Range/Units 13:03 13:03 14:40 WBC 1.2 L* (3.8-10.6) k/uL RBC 3.53 L (3.80-5.40) m/uL MCV 103.3 H (80.0-100.0) fL RDW 16.3 H (11.5-15.5) % Plt Count 41 L D (150-450) k/uL Neutrophils # (Manual) 0.11 L* (1.3-7.7) k/uL Lymphocytes # (Manual) 0.85 L (1.0-4.8) k/uL Sodium 132 L (137-145) mmol/L Potassium 5.5 H (3.5-5.1) mmol/L Carbon Dioxide 21 L (22-30) mmol/L BUN 83 H (7-17) mg/dL Creatinine 1.84 H (0.52-1.04) mg/dL Glucose 117 H (74-99) mg/dL Calcium 10.3 H (8.4-10.2) mg/dL Urine Appearance Cloudy H (Clear) Urine Protein Trace H (Negative) Ur Leukocyte Esterase Small H (Negative) Urine WBC 22 H (0-5) /hpf Ur Squamous Epith Cells 7 H (0-4) /hpf Urine Bacteria Many H (None) /hpf Hyaline Casts 25 H (0-2) /lpf Urine Mucus Rare H (None) /hpf Chest x-ray: report reviewed Venous US: report reviewed Assessment and Plan (1) History of DVT (deep vein thrombosis) Current Visit: Yes Status: Acute Code(s): Z86.718 - PERSONAL HISTORY OF OTHER VENOUS THROMBOSIS AND EMBOLISM SNOMED Code(s): 986205978 (2) Ischemia of both lower extremities Current Visit: Yes Status: Acute Code(s): I99.8 - OTHER DISORDER OF CIRCULATORY SYSTEM SNOMED Code(s): 434276012 (3) Myelodysplastic syndrome Current Visit: Yes Status: Acute Code(s): D46.9 - MYELODYSPLASTIC SYNDROME, UNSPECIFIED SNOMED Code(s): 192004070 (4) Neutropenia Current Visit: Yes Status: Acute Code(s): D70.9 - NEUTROPENIA, UNSPECIFIED SNOMED Code(s): 066937158 (5) Pancytopenia Current Visit: No Status: Acute Code(s): D61.818 - OTHER PANCYTOPENIA SNOMED Code(s): 441950565 Plan: we have thoroughly reviewed this case with emergency provider and RN and patient Dr. Maddox has personally viewed peripheral slides and no notable schistocytes have been identified Cardiology has been asked to evaluate for underlying arterial cardiovascular cause With her decreased WBC and platelet count will need to work-up infectious/inflammatory causes, Full collins cultures ordered (blood cultures and Urine Culture, reviewed Chest Xray). Arterial Dopplers of BLE extremities have been ordered Renal/Bladder Ultrasound Ordered for increased renal function DIC and Heparin induced Thrombocytopenia Antibodies ordered: FIbrinogen and Coag Factors Antiphospholipid Antibodies have been ordered for possibility of antiphospholipid syndrone Vasculitis (less likely) P-C-Anca antibodies, LDH, DAVID, RA, ESR, CRP also ordered Greater than 40minutes has been spent thoroughly evaluating this patient and all potential differentials, await further testing before anti-coagualtion Await vascular/Cardiology input Dr. Duff will be covering our practice over the weekend Physician Attest: I have completed the full history and physical and developed the complete impression and plan, agree with above dictation, dictated as a scribe.
--- NOTE | 2021-09-12 19:58 | US ---
EXAMINATION TYPE: US lower ext pseudo artery BI DATE OF EXAM: 09/12/2021 COMPARISON: NONE CLINICAL HISTORY: ischemia. Poor historian. Patient states she was in hospital x 1 month ago for hea rt issues but doesn't remember anything else. On blood thinners. EXAM PERFORMED: Grayscale and color Doppler duplex imaging performed of the groin, post cardiac barbara ter to assess for pseudoaneurysm. SIDE PERFORMED: Bilateral Color and Waveform Doppler performed to assess for the presence of pseudoaneurysm; Is there ultrasound evidence of a pseudoaneurysm: no Is there evidence of AV shunting: no Is there a fluid collection present: no IMPRESSION: Exam fails to show evidence of pseudoaneurysm or aneurysm or hematoma.
[2021-09-12 20:24] LABS: Appearance,Urine Clear (Clear); Bilirubin,Urine Negative (Negative); Blood,Urine Negative (Negative); Color,Urine Light Yellow; Glucose,Urine (UA) Negative (Negative); Ketones,Urine Negative (Negative); Leukocyte Esterase,Urine Negative (Negative); Nitrite,Urine Negative (Negative); Protein,Urine Negative (Negative); Specific Gravity,Urine 1.008 (1.001-1.035); Urobilinogen,Urine <2.0 mg/dL (<2.0)
[2021-09-12] MEDS: AMITRIPTYLINE HCL 10 MG TAB PO SCH (20:51)
--- NOTE | 2021-09-12 21:07 | US ---
EXAMINATION TYPE: US renals and bladder DATE OF EXAM: 09/12/2021 COMPARISON: CLINICAL HISTORY: ischemia and increased renal function. abnormal labs. EXAM MEASUREMENTS: Right Kidney: 9.6 x 4.0 x 4.9 cm Left Kidney: 10.1 x 4.1 x 5.0 cm Right Kidney: Cortical thinning. Renal cortex appears lobular in appearance. Mid cyst seen = 1.3 x 1 .3 x 1.5 cm Left Kidney: Cortical thinning. Renal cortex appears lobular in appearance. Multiple cysts seen wit h largest lower lateral = 4.3 x 4.6 x 4.1 cm Bladder: Distended. Anechoic. Bilateral Jets not seen IMPRESSION: There is renal cortical atrophy. There are bilateral renal cortical cysts. No evidence of a solid sis al mass or obstruction. No evidence of a bladder mass.
[2021-09-12 21:46] LABS: HCT 32.4 % (34.0-46.0); HGB 10.4 gm/dL (11.4-16.0); MCV 105.6 fL (80.0-100.0); RBC 3.07 m/uL (3.80-5.40)
[2021-09-12 21:47] LABS: Anisocytosis Slight; MCHC 32.2 g/dL (31.0-37.0); Macrocytosis Moderate; Mean Platelet Volume 9.2; Platelet Count 34 k/uL (150-450); RDW 16.2 % (11.5-15.5)
[2021-09-12 21:55] LABS: LDH 428 U/L (313-618)
[2021-09-12 22:06] LABS: Partial Thromboplastin Time 21.6 sec (22.0-30.0)
[2021-09-12 22:17] LABS: Fibrinogen 244 mg/dL (200-500)
[2021-09-12 22:41] LABS: Neutrophils % (M) 6 %
[2021-09-12 22:45] LABS: Band Neutrophils % 1 %; Lymphocytes # (M) 1.62 k/uL (1.0-4.8); Monocytes # (M) 0.24 k/uL (0-1.0)
[2021-09-12 22:46] LABS: Nucleated Red Blood Cells 0 /100 WBC (0-0); Total Cells Counted 100
[2021-09-12 22:51] LABS: T4, Free (Free Thyroxine) 2.33 ng/dL (0.78-2.19)
[2021-09-12 22:52] LABS: Erythrocyte Sedimentation Rate 26 mm/hr (0-20)
[2021-09-13 07:01] LABS: Anisocytosis Slight; HCT 32.9 % (34.0-46.0); HGB 10.4 gm/dL (11.4-16.0); MCH 33.5 pg (25.0-35.0); MCHC 31.7 g/dL (31.0-37.0); MCV 105.6 fL (80.0-100.0); Macrocytosis Marked; Mean Platelet Volume 9.1; RBC 3.11 m/uL (3.80-5.40); RDW 17.2 % (11.5-15.5); WBC 1.5 k/uL (3.8-10.6)
[2021-09-13 07:09] LABS: Platelet Count 34 k/uL (150-450)
[2021-09-13] MEDS: ALBUTEROL NEBULIZED 2.5 MG/3 ML INHALATION SCH ×4 (07:29→19:31)
[2021-09-13] MEDS ORDERED: LEVOTHYROXINE 100 MCG TAB PO SCH (07:30)
--- NOTE | 2021-09-13 08:14 | NM ---
EXAMINATION TYPE: NM pul vent and perfuse DATE OF EXAM: 09/13/2021 COMPARISON: Chest x-ray from yesterday HISTORY: Shortness of breath. Chest pain and cough and wheeze. TECHNIQUE: Utilizing inhalation of 69.0 mCi Tc 99m DTPA aerosol and intravenous injection of 5.0 mCi of Tc 99m MAA, ventilation and perfusion images are acquired post injection in multiple projections. FINDINGS: Some heterogeneity with small peripheral matching defects. There is no evidence of mismatch ed defects. IMPRESSION: Low scintigraphic evidence for acute pulmonary embolism
[2021-09-13] MEDS: ATORVASTATIN 20 MG TAB PO SCH (08:34)
[2021-09-13] MEDS: ISOSORBIDE MONONITRATE ER 60 MG TAB.ER.24H PO SCH (08:35)
[2021-09-13] MEDS: lisinopriL 10 MG TAB PO SCH (08:35)
[2021-09-13] MEDS: FUROSEMIDE 40 MG TAB PO SCH (08:35)
[2021-09-13] MEDS: CYANOCOBALAMIN 500 MCG TAB PO SCH (08:35)
[2021-09-13] MEDS: SPIRONOLACTONE 25 MG TAB PO SCH (08:35)
[2021-09-13] MEDS ORDERED: amLODIPine 10 MG TAB PO SCH (09:00)
[2021-09-13] MEDS: METOPROLOL SUCCINATE (ER) 100 MG TAB.ER.24H PO SCH (09:13)
[2021-09-13 11:09] LABS: Eosinophils # (M) 0.02 k/uL (0-0.7); Lymphocytes # (M) 0.99 k/uL (1.0-4.8); Monocytes # (M) 0.42 k/uL (0-1.0); Neutrophils # (M) 0.08 k/uL (1.3-7.7); Neutrophils % (M) 5 %; Nucleated Red Blood Cells 0 /100 WBC (0-0); Total Cells Counted 100
[2021-09-13 11:10] LABS: Poikilocytosis (M) Present
[2021-09-13 11:53] LABS: African American GFR (CKD) 31.8 (60.0-200.0); Albumin 3.7 g/dL (3.8-4.9); Albumin/Globulin Ratio 1.22 (1.60-3.17); Anion Gap 12.1 mmol/L (10.00-18.00); BUN/Creat Ratio 41.86 Ratio (12.00-20.00); Blood Urea Nitrogen 69.9 mg/dL (9.0-27.0); Calcium 9.9 mg/dL (8.7-10.3); Carbon Dioxide 23.6 mmol/L (20.0-27.5); Non-African American GFR(CKD) 27.4 (60.0-200.0); Potassium 5.3 mmol/L (3.5-5.5); Total Bilirubin 0.5 mg/dL (0.30-1.20); Total Protein 6.7 g/dL (6.2-8.2)
--- NOTE | 2021-09-13 12:59 | ECHOF ---
Referral Reason:LVF MEASUREMENTS -------- HEIGHT: 154.9 cm WEIGHT: 71.7 kg BP: IVSd: 1.3 cm (0.6 - 1.1) LVIDd: 3.0 cm (3.9 - 5.3) LVPWd: 1.4 cm (0.6 - 1.1) IVSs: 1.9 cm LVIDs: 1.9 cm LVPWs: 1.8 cm LAESV Index (A-L): 24.55 ml/m Ao Diam: 2.8 cm (2.0 - 3.7) AV Cusp: 1.4 cm (1.5 - 2.6) LA Diam: 3.5 cm (2.7 - 3.8) MV EXCURSION: 14.577 mm (> 18.000) MV EF SLOPE: 55 mm/s (70 - 150) EPSS: 0.4 cm AR PHT: 289 ms RAP: 5.00 mmHg RVSP: 25.27 mmHg FINDINGS -------- Atrial fibrillation. This was a technically adequate study. The left ventricular size is normal. There is moderate concentric left ventricular hypertrophy. O verall left ventricular systolic function is mild-moderately impaired with, an EF between 40 - 45 %. Left ventricular fillimg pressure cannot be estimated due to Atrial fibrillation. Septal Hypokine sis The right ventricle is normal in size. The left atrial size is normal. Normal LA size by volume 22+/-6 ml/m2. The right atrial size is normal. The aortic valve is trileaflet and appears structurally normal. Trace amount of aortic regurgitatio n. The mitral valve is normal. Mild mitral regurgitation is present. The tricuspid valve appears structurally normal. Mild tricuspid regurgitation present. Right vent ricular systolic pressure is normal at < 35 mmHg. There is no pulmonic regurgitation present. The aortic root size is normal. Normal inferior vena cava with normal inspiratory collapse consistent with estimated right atrial pre ssure of 5 mmHg. There is no pericardial effusion. CONCLUSIONS -------- 1. The left ventricular size is normal. 2. There is moderate concentric left ventricular hypertrophy. 3. Overall left ventricular systolic function is mild-moderately impaired with, an EF between 40 - 45 %. 4. Left ventricular fillimg pressure cannot be estimated due to Atrial fibrillation. 5. Septal Hypokinesis 6. Trace amount of aortic regurgitation. 7. Mild mitral regurgitation is present. 8. Mild tricuspid regurgitation present. 9. There is no pericardial effusion. GRINDING WHEEL OPERATOR: Natalie Carolina RDCS
--- NOTE | 2021-09-13 13:19 | P.CRDCN ---
History of Present Illness Consult date: 09/13/21 Requesting physician: Armando Maddox Reason for Consult (text): ischemia History of present illness: HISTORY OF PRESENT ILLNESS The patient is an 86-year-old female patient with extensive cardiovascular history consistent of history of stroke in 2019, non-ischemic cardiomyopathy, valvular heart disease with mitral and tricuspid regurgitation and also permanent atrial fibrillation on oral anticoagulation with Eliquis, hypertension and dyslipidemia. We have been asked to see the patient regarding ischemia. Patient states that she has difficulty with walking with history of blood clots and thought she had a blood clot now. She states she has been on eliquis for the past 1 year and admits to recent hospitalization a month ago for heart failure. She is followed by Dr. Coleman for MDS which she states this is in rem ission. She had a recent fall in the bathroom causing bruising to the left jaw but she denies frequent falls. She complains of shortness of breath with exertion. She also complains of a rash which is new to her toes dorsal feet and fingers, complains of numbness to her toes and itching at nighttime. EKG is atrial fibrillation with left bundle branch block Ultrasound of the lower extremity rash groin revealed no pseudoaneurysm or aneurysm or hematoma. Renal ultrasound reveals renal cortical atrophy. Bilateral renal cortical cysts. No evidence of solid renal mass or obstruction. No evidence of bladder mass. VQ scan low probability for pulmonary embolism. Echocardiogram reveals EF 40-45%, moderate concentric left ventricular hypertrophy, mild mitral regurgitation, mild tricuspid regurgitation, trace aortic regurgitation Laboratory studies: WBC 1.5, hemoglobin 10.4, platelet count 34. Electrolytes normal. BUN 69 creatinine 1.77. Liver function tests normal. TSH 0.097, free T4 2 0.33, parathyroid hormone intact 96.8. Urinalysis negative for infection. Dykes virus PCR not detected. Blood culture positive for gram-negative cocci/bacilli. Home cardiac medications: Amlodipine 10 mg daily, eliquis 2.5 mg twice daily, aspirin 81 mg daily, eliquis 2.5 mg twice daily, atorvastatin 20 mg daily, Lasix 40 mg daily, Imdur 60 mg daily, lisinopril 10 mg daily, Toprol-XL 100 mg daily, Aldactone 25 mg daily Previous echocardiogram from 2020 revealed impaired LV function was EF between 35-40% with moderate to severe mitral and tricuspid regurgitation and mild pulmonary REVIEW OF SYSTEMS Constitutional: No fever, no chills. reported weakness, reported fatigue reported lethargy. EENT: No headache. No dizziness. Lungs: reported shortness of breath, cough, no sputum production. No wheezing. Reported dyspnea with exertion Cardiovascular: No chest pain, no lower extremity edema. No palpitations. No paroxysmal nocturnal dyspnea. No orthopnea. No lightheadedness or dizziness. No syncopal episodes. Abdominal: No abdominal pain. No nausea, vomiting. No diarrhea. No constipation. No bloody or tarry stools.. No loss of appetite. Genitourinary: No dysuria.. No urinary retention. Musculoskeletal: No myalgias. No muscle weakness, no gait dysfunction, no frequent falls. No back pain. No neck pain. Integumentary: No wounds, no lesions. Reports rash or pruritus. No unusual bruising. Neurologic: No aphasia. No facial droop. No change in mentation. No head injury. No headache. No paralysis. No paresthesia. Psychiatric: No depression. No anxiety. Endocrine: No abnormal blood sugars. PHYSICAL EXAMINATION Gen: This is a 86-year-old frail-appearing female, resting in bed and appears to be in no acute distress. VS: Afebrile, heart rate in the 60s, blood pressure 113/55, pulse ox 95% on room air. Ecchymosis to the left jaw. Urinalysis negative for infection. Dykes virus PCR not detected. HEENT: Head is atraumatic, normocephalic. Pupils equal, round. Sclerae is anicteric. NECK: Supple. No JVD. No lymphadenopathy. No thyromegaly. LUNGS: Diminished bilaterally. No wheezes or rhonchi. No intercostal retractions. HEART: Irregularly irregular rate and rhythm. Systolic murmur. ABDOMEN: Soft. Bowel sounds are present. No masses. No tenderness. EXTREMITIES: No pedal edema. No calf tenderness. Petechiae like rash to the bilateral feet/toes NEUROLOGICAL: Patient is awake, alert and oriented x3. Cranial nerves 2 through 12 are grossly intact. ASSESSMENT Bacteremia MDS Thrombocytopenia Severe neutropenia History of DVT History of CVA in 2019 Nonischemic cardiomyopathy Valvular heart disease with mitral and tricuspid regurgitation Permanent atrial fibrillation Hypertension Hyperlipidemia Hypothyroidism PLAN Agree with holding eliquis due to thrombocytopenia Hold amlodipine due to soft blood pressure readings Recommend continuing other cardiac medications Decrease levothyroxine to 88 g daily, further adjustment per internal medicine Recommend consult with ID for gram negatives bacteremia in an immunocompromised host Further recommendations to follow based upon clinical course Thank you kindly for this consultation. Nurse practitioner note has been reviewed, I agree with documented findings and plan of care. Patient was seen and examined. Past Medical History Past Medical History: Atrial Fibrillation, Blood Disorder, Coronary Artery Disease (CAD), Chest Pain / Angina, Heart Failure, CVA/TIA, Deep Vein Thrombosis (DVT), Eye Disorder, GERD/Reflux, Hyperlipidemia, Hypertension, Myocardial Infarction (OK), Osteoarthritis (OA), Pneumonia, Syncope, Thyroid Disorder, Vascular Disorder Additional Past Medical History / Comment(s): Pt hx afib,. 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 DVTs multiple in R leg and once in L arm, PEs- showering pulmonary embolisms bilateral lungs, chronic thrombophlebitis, coronary blockages, leaky cardiac valves, AAA thoracic and abdominal both stented, duodenal ulcer, hiatal hernia, diverticular dx, colitis, IBS, H. Pylori, frequent diarrhea, chronic anemia, bronchitis, pneumonias, macular degeneration bilaterally, syncopal episodes. Last Myocardial Infarction Date:: UNKNOWN History of Any Multi-Drug Resistant Organisms: None Reported Past Surgical History: Appendectomy, Cholecystectomy, Heart Catheterization, Hysterectomy Additional Past Surgical History / Comment(s): 09/2015 thoracic aortic aneurysm stent, 07/2017 thoracic aortic aneurysm stent leaking and another stent placed as well as abdominal aortic aneurysm stented, cardiac caths, green field filter, bone marrow aspiration, exploratory lap for adhesions, EGD/colonoscopies with benign polypectomy, hemorrhoidectomy, R leg vein stripping. Past Anesthesia/Blood Transfusion Reactions: Blood Transfusion Reaction Additional Past Anesthesia/Blood Transfusion Reaction / Comment(s): Heart marium lure/fluid overload Past Psychological History: No Psychological Hx Reported Smoking Status: Never smoker, Unknown if ever smoked Past Alcohol Use History: None Reported Past Drug Use History: None Reported - Past Family History Father Family Medical History: Coronary Artery Disease (CAD), Myocardial Infarction (OK) Mother Family Medical History: COPD, Coronary Artery Disease (CAD), Deep Vein Thrombosis (DVT) Brother(s) Family Medical History: Coronary Artery Disease (CAD), Myocardial Infarction (OK) Sister(s) Family Medical History: Cancer Additional Family Medical History / Comment(s): Uterine Medications and Allergies Home Medications Medication Instructions Recorded Confirmed Type Levothyroxine Sodium [Synthroid] 100 mcg PO [id number] 09/10/16 09/12/21 History Metoprolol Succinate [Toprol XL] 100 mg PO DAILY 09/10/16 09/12/21 History Isosorbide Mononitrate ER [Imdur] 60 mg PO DAILY 09/28/19 09/12/21 History Melatonin 5 mg PO HS PRN 09/28/19 09/12/21 History rOPINIRole HCL [Requip] 0.25 mg PO HS 09/28/19 09/12/21 History Apixaban [Eliquis] 2.5 mg PO BID 02/16/21 09/12/21 History Cinacalcet [Sensipar] 30 mg PO MOFR@0700 02/16/21 09/12/21 History Ergocalciferol (Vitamin D2) 1,250 mcg PO Q30D 02/16/21 09/12/21 History [Drisdol (50,000 Iu)] Loperamide [Imodium] 2 mg PO TID PRN 02/16/21 09/12/21 History Atorvastatin Calcium [Lipitor] 20 mg PO DAILY 03/02/21 09/12/21 History Albuterol Inhaler [Ventolin Hfa 2 puff INHALATION RT-QID #8 gm 08/20/21 09/12/21 Rx Inhaler] Cyanocobalamin [Vitamin B-12] 1,000 mcg PO DAILY #30 tab 08/20/21 09/12/21 Rx Furosemide [Lasix] 40 mg PO DAILY #30 tab 08/20/21 09/12/21 Rx Spironolactone [Aldactone] 25 mg PO DAILY #30 tab 08/20/21 09/12/21 Rx amLODIPine [Norvasc] 10 mg PO DAILY #60 tab 08/20/21 09/12/21 Rx lisinopriL [Zestril] 10 mg PO DAILY #30 tab 08/20/21 09/12/21 Rx Amitriptyline HCl [Elavil] 10 mg PO HS 09/12/21 09/12/21 History Aspirin EC [Ecotrin Low Dose] 81 mg PO DAILY 09/12/21 09/12/21 History Triamcinolone 0.1% Cream [Kenalog 1 applic TOPICAL BID 09/12/21 09/12/21 History 0.1% Cream] Allergies Allergy/AdvReac Type Severity Reaction Status Date / Time black pepper Allergy Severe Anaphylaxis Verified 09/12/21 14:15 Influenza Virus Vaccines Allergy Severe Unknown Verified 09/12/21 14:15 peanut Allergy Severe Anaphylaxis Verified 09/12/21 14:15 prednisone Allergy Severe Dyspnea Verified 09/12/21 14:15 atropine [From ] Allergy Unknown Verified 09/12/21 14:15 chocolate flavor Allergy Itching Verified 09/12/21 14:15 hyoscyamine [From ] Allergy Unknown Verified 09/12/21 14:15 Iodinated Contrast Media Allergy Swelling Verified 09/12/21 14:15 [Iodinated Contrast Media - IV Dye] phenobarbital [From ] Allergy Unknown Verified 09/12/21 14:15 propoxyphene [From Darvon] Allergy Unknown Verified 09/12/21 14:15 scopolamine [From ] Allergy Unknown Verified 09/12/21 14:15 Sulfa (Sulfonamide Allergy Rash/Hives Verified 09/12/21 14:15 Antibiotics) venom-honey bee Allergy Unknown Verified 09/12/21 14:15 [bee venom (honey bee)] acetaminophen [From [place]] AdvReac Hallucinati Verified 09/12/21 14:15 ons belladonna alkaloids AdvReac Unknown Verified 09/12/21 14:15 hydrocodone [From [place]] AdvReac Hallucinati Verified 09/12/21 14:15 ons simvastatin [From Zocor] AdvReac WEAKNESS Verified 09/12/21 14:15 SMELT Allergy Itching Uncoded 09/12/21 14:15 Physical Exam Vitals: Vital Signs Temp Pulse Pulse Resp BP BP Pulse Ox 09/13/21 11:39 68 09/13/21 11:28 68 09/13/21 04:23 98.3 F 65 16 113/55 95 09/12/21 19:36 69 09/12/21 19:28 75 09/12/21 19:04 97.7 F 60 18 123/59 100 09/12/21 15:57 97.5 F L 85 18 106/64 97 09/12/21 12:15 98.2 F 81 20 123/43 99 Intake and Output 09/12/21 09/13/21 09/13/21 22:59 06:59 14:59 Other: Voiding Method Bedside Commode Bedside Commode # Voids 2 1 Weight 71.923 kg 71.753 kg Results 09/13/21 06:31 09/13/21 06:31 Cardiac Enzymes 09/12/21 09/12/21 09/12/21 Range/Units 13:03 13:03 20:40 AST 23 (14-36) U/L Lactate Dehydrogenase 428 (313-618) U/L Troponin I 0.020 (0.000-0.034) ng/mL Coagulation 09/12/21 09/12/21 Range/Units 13:03 18:58 PT 11.3 (9.0-12.0) sec APTT 21.6 L (22.0-30.0) sec CBC 09/12/21 09/12/21 09/13/21 Range/Units 13:03 20:40 06:31 WBC 1.2 L* 2.0 L 1.5 L (3.8-10.6) k/uL RBC 3.53 L 3.07 L 3.11 L (3.80-5.40) m/uL Hgb 11.9 10.4 L 10.4 L (11.4-16.0) gm/dL Hct 36.5 32.4 L 32.9 L (34.0-46.0) % Plt Count 41 L D 34 L 34 L (150-450) k/uL Comprehensive Metabolic Panel 09/12/21 Range/Units 13:03 Sodium 132 L (137-145) mmol/L Potassium 5.5 H (3.5-5.1) mmol/L Chloride 100 (98-107) mmol/L Carbon Dioxide 21 L (22-30) mmol/L BUN 83 H (7-17) mg/dL Creatinine 1.84 H (0.52-1.04) mg/dL Glucose 117 H (74-99) mg/dL Calcium 10.3 H (8.4-10.2) mg/dL AST 23 (14-36) U/L ALT 16 (4-34) U/L Alkaline Phosphatase 65 (38-126) U/L Total Protein 7.5 (6.3-8.2) g/dL Albumin 4.0 (3.5-5.0) g/dL Current Medications Generic Name Dose Route Start Last Admin Trade Name Candidoq PRN Reason Stop Dose Admin Albuterol Sulfate 2.5 mg 09/12/21 16:00 09/13/21 11:28 Albuterol Nebulized 2.5 Mg/3 Ml INHALATION 2.5 mg RT-QID LAURY Administration Amitriptyline HCl 10 mg 09/12/21 21:00 09/12/21 20:51 Amitriptyline Hcl 10 Mg Tab PO 10 mg HS LAURY Administration Amlodipine Besylate 10 mg 09/13/21 09:00 09/13/21 08:35 Amlodipine 10 Mg Tab PO 10 mg DAILY LAURY Administration Atorvastatin Calcium 20 mg 09/13/21 09:00 09/13/21 08:34 Atorvastatin 20 Mg Tab PO 20 mg DAILY LAURY Administration Cyanocobalamin 1,000 mcg 09/13/21 09:00 09/13/21 08:35 Cyanocobalamin 500 Mcg Tab PO 1,000 mcg DAILY LAURY Administration Ergocalciferol 1,250 mcg 10/06/21 09:00 Ergocalciferol 1,250 Mcg (50,000 Iu) Capsule PO Q30D LAURY Furosemide 40 mg 09/13/21 09:00 09/13/21 08:35 Furosemide 40 Mg Tab PO 40 mg DAILY LAURY Administration Ceftriaxone Sodium 1 gm/ 50 mls @ 100 mls/hr 09/12/21 17:00 09/12/21 17:49 Sodium Chloride IVPB 100 mls/hr Q24H LAURY Administration Isosorbide Mononitrate 60 mg 09/13/21 09:00 09/13/21 08:35 Isosorbide Mononitrate Er 60 Mg Tab.Er.24h PO 60 mg DAILY LAURY Administration Levothyroxine Sodium 100 mcg 09/14/21 06:30 Levothyroxine 100 Mcg Tab PO DAILY@0630 LAURY Lisinopril 10 mg 09/13/21 09:00 09/13/21 08:35 Lisinopril 10 Mg Tab PO 10 mg DAILY LAURY Administration Loperamide HCl 2 mg 09/12/21 14:33 Loperamide 2 Mg Cap PO TID PRN Diarrhea Melatonin 5 mg 09/12/21 14:33 Melatonin 5 Mg Tablet PO HS PRN Insomnia Metoprolol Succinate 100 mg 09/13/21 09:00 09/13/21 09:13 Metoprolol Succinate (Er) 100 Mg Tab.Er.24h PO 100 mg DAILY LAURY Administration Naloxone HCl 0.2 mg 09/12/21 14:28 Naloxone 0.4 Mg/Ml 1 Ml Vial IV Q2M PRN Opioid Reversal Ropinirole HCl 0.25 mg 09/12/21 21:00 09/12/21 20:51 Ropinirole Hcl 0.25 Mg Tab PO 0.25 mg HS LAURY Administration Spironolactone 25 mg 09/13/21 09:00 09/13/21 08:35 Spironolactone 25 Mg Tab PO 25 mg DAILY LAURY Administration Intake and Output 09/12/21 09/13/21 09/13/21 22:59 06:59 14:59 Other: Voiding Method Bedside Commode Bedside Commode # Voids 2 1 Weight 71.923 kg 71.753 kg 09/13/21 06:31 09/12/21 13:03
[2021-09-13] MEDS: AMITRIPTYLINE HCL 10 MG TAB PO SCH (21:13)
--- NOTE | 2021-09-13 23:06 | P.PN ---
Subjective This is a pleasant 86 years old female with multiple medical problems was presented to the emergency room because of right leg redness, also she was found to have leukopenia/neutropenia and thrombocytopenia, she has history of bilateral feet changes since 07/2021 and hematology/oncology team recommended cardiology evaluation to rule out right leg ischemia. Patient also has evidence of acute kidney injury on top of her chronic kidney disease stage III at least since 2018. She has history of DVT per hematology oncology team but no anticoagulation, especially she has thrombocytopenia Today her CULTURE came back positive with E. coli and Streptococcus and she has 2 urine analysis samples one of them is suspicious for infection and culture is growing gram-negative bacilli while echocardiogram showing ejection fraction of 40-45%. Patient that that she is fully awake and oriented, looks comfortable in bed but she was complaining of from her right leg which is red and warm and swollen and tender to touch. She denies chest pain, dyspnea or coughing. No abdominal pain. Objective - Vital Signs Vital signs: Vital Signs Temp 98.3 F 09/13/21 04:23 Pulse 68 09/13/21 11:39 Resp 16 09/13/21 04:23 BP 113/55 09/13/21 04:23 Pulse Ox 95 09/13/21 04:23 Intake & Output 09/12/21 09/13/21 09/13/21 18:59 06:59 18:59 Weight 68.039 kg 71.753 kg Other: Voiding Method Bedside Commode Bedside Commode # Voids 2 1 - Exam GENERAL: The patient is alert and oriented x3, not in any acute distress. Well developed, well nourished. HEENT: Pupils are round and equally reacting to light. EOMI. No scleral icterus. No conjunctival pallor. Normocephalic, atraumatic. No pharyngeal erythema. No thyromegaly. CARDIOVASCULAR: S1 and S2 present. No murmurs, rubs, or gallops. PULMONARY: Chest is clear to auscultation, no wheezing or crackles. ABDOMEN: Soft, nontender, nondistended, normoactive bowel sounds. No palpable organomegaly. MUSCULOSKELETAL: No joint swelling or deformity. -EXTREMITIES: No cyanosis, clubbing, or pedal edema. Right leg is swollen, warm and tender NEUROLOGICAL: Gross neurological examination did not reveal any focal deficits. SKIN: No rashes. no petechiae. - Labs CBC & Chem 7: 09/13/21 06:31 09/13/21 06:31 Labs: Abnormal Lab Results - Last 24 Hours (Table) 09/12/21 09/12/21 09/12/21 Range/Units 13:03 13:03 14:40 WBC 1.2 L* (3.8-10.6) k/uL RBC 3.53 L (3.80-5.40) m/uL Hgb (11.4-16.0) gm/dL Hct (34.0-46.0) % MCV 103.3 H (80.0-100.0) fL RDW 16.3 H (11.5-15.5) % Plt Count 41 L D (150-450) k/uL Neutrophils # (Manual) 0.11 L* (1.3-7.7) k/uL Lymphocytes # (Manual) 0.85 L (1.0-4.8) k/uL Macrocytosis ESR (0-20) mm/hr APTT (22.0-30.0) sec D-Dimer (<0.60) mg/L FEU Sodium 132 L (137-145) mmol/L Potassium 5.5 H (3.5-5.1) mmol/L Carbon Dioxide 21 L (22-30) mmol/L BUN 83 H (7-17) mg/dL Creatinine 1.84 H (0.52-1.04) mg/dL Est GFR (CKD-EPI)AfAm (60.0-200.0) Est GFR (CKD-EPI)NonAf (60.0-200.0) BUN/Creatinine Ratio (12.00-20.00) Ratio Glucose 117 H (74-99) mg/dL Calcium 10.3 H (8.4-10.2) mg/dL C-Reactive Protein (<1.0) mg/dL Albumin (3.8-4.9) g/dL Albumin/Globulin Ratio (1.60-3.17) g/dL Procalcitonin (0.02-0.09) ng/mL TSH (0.465-4.680) mIU/L Free T4 (0.78-2.19) ng/dL PTH Intact (14.0-72.0) pg/mL Urine Appearance Cloudy H (Clear) Urine Protein Trace H (Negative) Ur Leukocyte Esterase Small H (Negative) Urine WBC 22 H (0-5) /hpf Ur Squamous Epith Cells 7 H (0-4) /hpf Urine Bacteria Many H (None) /hpf Hyaline Casts 25 H (0-2) /lpf Urine Mucus Rare H (None) /hpf 09/12/21 09/12/21 09/12/21 Range/Units 18:58 20:40 20:40 WBC 2.0 L (3.8-10.6) k/uL RBC 3.07 L (3.80-5.40) m/uL Hgb 10.4 L (11.4-16.0) gm/dL Hct 32.4 L (34.0-46.0) % MCV 105.6 H (80.0-100.0) fL RDW 16.2 H (11.5-15.5) % Plt Count 34 L (150-450) k/uL Neutrophils # (Manual) 0.10 L* (1.3-7.7) k/uL Lymphocytes # (Manual) (1.0-4.8) k/uL Macrocytosis ESR 26 H (0-20) mm/hr APTT 21.6 L (22.0-30.0) sec D-Dimer >34.10 H (<0.60) mg/L FEU Sodium (137-145) mmol/L Potassium (3.5-5.1) mmol/L Carbon Dioxide (22-30) mmol/L BUN (7-17) mg/dL Creatinine (0.52-1.04) mg/dL Est GFR (CKD-EPI)AfAm (60.0-200.0) Est GFR (CKD-EPI)NonAf (60.0-200.0) BUN/Creatinine Ratio (12.00-20.00) Ratio Glucose (74-99) mg/dL Calcium (8.4-10.2) mg/dL C-Reactive Protein 4.0 H (<1.0) mg/dL Albumin (3.8-4.9) g/dL Albumin/Globulin Ratio (1.60-3.17) g/dL Procalcitonin (0.02-0.09) ng/mL TSH 0.097 L (0.465-4.680) mIU/L Free T4 2.33 H (0.78-2.19) ng/dL PTH Intact (14.0-72.0) pg/mL Urine Appearance (Clear) Urine Protein (Negative) Ur Leukocyte Esterase (Negative) Urine WBC (0-5) /hpf Ur Squamous Epith Cells (0-4) /hpf Urine Bacteria (None) /hpf Hyaline Casts (0-2) /lpf Urine Mucus (None) /hpf 09/12/21 09/13/21 09/13/21 Range/Units 20:40 06:31 06:31 WBC 1.5 L (3.8-10.6) k/uL RBC 3.11 L (3.80-5.40) m/uL Hgb 10.4 L (11.4-16.0) gm/dL Hct 32.9 L (34.0-46.0) % MCV 105.6 H (80.0-100.0) fL RDW 17.2 H (11.5-15.5) % Plt Count 34 L (150-450) k/uL Neutrophils # (Manual) 0.08 L* (1.3-7.7) k/uL Lymphocytes # (Manual) 0.99 L (1.0-4.8) k/uL Macrocytosis Marked A ESR (0-20) mm/hr APTT (22.0-30.0) sec D-Dimer (<0.60) mg/L FEU Sodium (137-145) mmol/L Potassium (3.5-5.1) mmol/L Carbon Dioxide (22-30) mmol/L BUN 69.9 H (7-17) mg/dL Creatinine 1.7 H (0.52-1.04) mg/dL Est GFR (CKD-EPI)AfAm 31.8 L (60.0-200.0) Est GFR (CKD-EPI)NonAf 27.4 L (60.0-200.0) BUN/Creatinine Ratio 41.86 H (12.00-20.00) Ratio Glucose (74-99) mg/dL Calcium (8.4-10.2) mg/dL C-Reactive Protein (<1.0) mg/dL Albumin 3.7 L (3.8-4.9) g/dL Albumin/Globulin Ratio 1.22 L (1.60-3.17) g/dL Procalcitonin (0.02-0.09) ng/mL TSH (0.465-4.680) mIU/L Free T4 (0.78-2.19) ng/dL PTH Intact 96.8 H (14.0-72.0) pg/mL Urine Appearance (Clear) Urine Protein (Negative) Ur Leukocyte Esterase (Negative) Urine WBC (0-5) /hpf Ur Squamous Epith Cells (0-4) /hpf Urine Bacteria (None) /hpf Hyaline Casts (0-2) /lpf Urine Mucus (None) /hpf 09/13/21 Range/Units 06:31 WBC (3.8-10.6) k/uL RBC (3.80-5.40) m/uL Hgb (11.4-16.0) gm/dL Hct (34.0-46.0) % MCV (80.0-100.0) fL RDW (11.5-15.5) % Plt Count (150-450) k/uL Neutrophils # (Manual) (1.3-7.7) k/uL Lymphocytes # (Manual) (1.0-4.8) k/uL Macrocytosis ESR (0-20) mm/hr APTT (22.0-30.0) sec D-Dimer (<0.60) mg/L FEU Sodium (137-145) mmol/L Potassium (3.5-5.1) mmol/L Carbon Dioxide (22-30) mmol/L BUN (7-17) mg/dL Creatinine (0.52-1.04) mg/dL Est GFR (CKD-EPI)AfAm (60.0-200.0) Est GFR (CKD-EPI)NonAf (60.0-200.0) BUN/Creatinine Ratio (12.00-20.00) Ratio Glucose (74-99) mg/dL Calcium (8.4-10.2) mg/dL C-Reactive Protein (<1.0) mg/dL Albumin (3.8-4.9) g/dL Albumin/Globulin Ratio (1.60-3.17) g/dL Procalcitonin 0.17 H (0.02-0.09) ng/mL TSH (0.465-4.680) mIU/L Free T4 (0.78-2.19) ng/dL PTH Intact (14.0-72.0) pg/mL Urine Appearance (Clear) Urine Protein (Negative) Ur Leukocyte Esterase (Negative) Urine WBC (0-5) /hpf Ur Squamous Epith Cells (0-4) /hpf Urine Bacteria (None) /hpf Hyaline Casts (0-2) /lpf Urine Mucus (None) /hpf Microbiology - Last 24 Hours (Table) 09/12/21 16:56 Blood Culture Gram Stain - Preliminary Blood 09/12/21 16:56 Blood Culture - Final Blood 09/12/21 14:40 Urine Culture - Preliminary Urine,Voided Assessment and Plan Assessment: Right leg swelling and tenderness, possible cellulitis, rule out right leg ischemia Bacteremia with E. coli and Streptococcus species Possible acute urinary tract infection secondary to gram-negative bacilli Leukopenia and thrombocytopenia Acute kidney injury on top of chronic kidney disease, stage III History of DVT Cardiomyopathy with ejection fraction of 40-45% History of thoracic aortic aneurysm stent, With focal fusiform aneurysmal dilatation around 7.6 cm seen on a previous x-ray Plan: This is a pleasant 86 years old female who presents with right flank swelling and tenderness, possible cellulitis, rule out ischemia, also bacteremia, JOSHUA, low WBC and platelet counts Continue with antibiotics and infectious disease consult Cardiology and hematology team consults Monitor WBCs and platelet count Labs and medication were reviewed.. Continue same treatment. Continue with symptomatic treatment. Resume home medication. Monitor lytes and vitals. DVT and GI prophylaxis. Further recommendations as per clinical course of the patient DVT prophylaxis: no heparin for severe thrombocytopenia GI Prophylaxis: Pepcid PT/OT: Pending Prognosis is guarded
[2021-09-14] MEDS: LEVOTHYROXINE 88 MCG TAB PO SCH (06:03)
[2021-09-14] MEDS ORDERED: LEVOTHYROXINE 100 MCG TAB PO SCH (06:30)
[2021-09-14] MEDS: ALBUTEROL NEBULIZED 2.5 MG/3 ML INHALATION SCH ×5 (07:56→19:56)
[2021-09-14] MEDS: FUROSEMIDE 40 MG TAB PO SCH (08:18)
[2021-09-14] MEDS: METOPROLOL SUCCINATE (ER) 100 MG TAB.ER.24H PO SCH (08:18)
[2021-09-14] MEDS: ATORVASTATIN 20 MG TAB PO SCH (08:18)
[2021-09-14] MEDS: ISOSORBIDE MONONITRATE ER 60 MG TAB.ER.24H PO SCH (08:18)
[2021-09-14] MEDS: lisinopriL 10 MG TAB PO SCH (08:18)
[2021-09-14] MEDS: FAMOTIDINE 20 MG/2 ML VIAL IV SCH ×2 (08:18→21:07)
[2021-09-14] MEDS: CYANOCOBALAMIN 500 MCG TAB PO SCH (08:18)
[2021-09-14] MEDS: SPIRONOLACTONE 25 MG TAB PO SCH (08:18)
--- NOTE | 2021-09-14 11:29 | P.CONS ---
History of Present Illness - Reason for Consult Consult date: 09/13/21 cellulitis and bacteremia Requesting physician: Petros E Cris - Chief Complaint right leg redness and pain x few days - History of Present Illness History of present illness : Patient is 86-year-old female was brought into the ER yesterday afternoon for evaluation of shortness of breath that has been going on for 2 weeks and the patient also complaining of right leg pain and redness the pain has been going on for a day before presentation to the hospital patient did have diffuse swelling redness of the right leg patient describes the pain to be more of a dull aching at times sharp 5-6 out of 10 and no radiation patient did not have any skin breakdown or any drainage. Complaining of feeling dizzy and apparently having fallen in the bathroom on presentation to the hospital patient was afebrile no fever was recorded subsequently patient did have leukopenia D-dimer was elevated did have elevated BUN and creatinine levels observed normal urine is negative: PCR was negative patient blood cultures coming back positive for Streptococcus species and E. coli patient currently treated with Rocephin especially with concern for cellulitis and bacteremia pat ient did have a chest x-ray borderline cardiomegaly with chronic changes no definite acute process left leg Doppler was negative for DVT renal ultrasound renal cortical atrophy bilateral renal cortical cyst Review of system: CONSTITUTIONAL: Positive for weakness denies high-grade fever. EYES: No complaint. ENT: No complaint. RESPIRATORY: No complaint. CARDIOVASCULAR: No complaint. GENITOURINARY: As per history of present illness. GASTROINTESTINAL: No complaint. MUSCULOSKELETAL: No complaint. INTEGUMENTARY as per history of present illness. PSYCHOLOGIC: No complaint. ENDOCRINE: No complaint. NEUROLOGIC: No complaint. Past medical history : Reviewed, documented below Past surgical history : Reviewed, documented below Social history: Reviewed, documented below Medications: Reviewed, as documented below EXAMINATION: Vital sigans= Reviewed and documented below GENERAL DESCRIPTION: Elderly female male lying in bed, no distress. No tachypnea or accessory muscle of respiration use. HEENT: Shows Pallor , no scleral icterus. Oral mucous membrane is dry. NECK: Trachea central, no thyromegaly. LUNGS: Unlabored breathing. Clear to auscultation anteriorly. No wheeze or crackle. HEART: S1, S2, regular rate and rhythm. ABDOMEN: Soft, no tenderness , guarding or rigidity EXTREMITIES: Right leg did have swelling redness slightly warm and tender to touch. SKIN: No rash, no masses palpable. NEUROLOGICAL: The patient is awake, alert, oriented x3, mood and affect normal. LABS AND RADIOLOGY: Reviewed results see below Assessment : Patient presented to hospital with weakness fall shortness of breath and did have right leg swelling and redness and now with evidence of streptococcal bacteremia which could be explained on the basis of the right leg cellulitis however the patient did have E. coli bacteremia which usually often GI or urinary source, patient did have mildly positive urination however repeat is negative and will need to rule out intra-abdominal source Plan: 1-Rocephin 2 g daily to continue to cover for both pathogens 2-Marked area the redness right leg 3-obtain CT abdominal pelvis with oral contrast rule out any intra-abdominal pathology We will follow on clinical condition and cultures to further adjust medication if needed Thank you for this consultation we will follow the patient along with you Past Medical History Past Medical History: Atrial Fibrillation, Blood Disorder, Coronary Artery Disease (CAD), Chest Pain / Angina, Heart Failure, CVA/TIA, Deep Vein Thrombosis (DVT), Eye Disorder, GERD/Reflux, Hyperlipidemia, Hypertension, Myocardial Infarction (SD), Osteoarthritis (OA), Pneumonia, Syncope, Thyroid Disorder, Vascular Disorder Additional Past Medical History / Comment(s): Pt hx afib,. 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 DVTs multiple in R leg and once in L arm, PEs- showering pulmonary embolisms bilateral lungs, chronic thrombophlebitis, coronary blockages, leaky cardiac valves, AAA thoracic and abdominal both stented, duodenal ulcer, hiatal hernia, diverticular dx, colitis, IBS, H. Pylori, frequent diarrhea, chronic anemia, bronchitis, pneumonias, macular degeneration bilaterally, syncopal episodes. Last Myocardial Infarction Date:: UNKNOWN History of Any Multi-Drug Resistant Organisms: None Reported Past Surgical History: Appendectomy, Cholecystectomy, Heart Catheterization, Hysterectomy Additional Past Surgical History / Comment(s): 09/2015 thoracic aortic aneurysm stent, 07/2017 thoracic aortic aneurysm stent leaking and another stent placed as well as abdominal aortic aneurysm stented, cardiac caths, green field filter, bone marrow aspiration, exploratory lap for adhesions, EGD/colonoscopies with benign polypectomy, hemorrhoidectomy, R leg vein stripping. Past Anesthesia/Blood Transfusion Reactions: Blood Transfusion Reaction Additional Past Anesthesia/Blood Transfusion Reaction / Comm: Heart failure/fluid overload Past Psychological History: No Psychological Hx Reported Smoking Status: Never smoker, Unknown if ever smoked Past Alcohol Use History: None Reported Past Drug Use History: None Reported - Past Family History Father Family Medical History: Coronary Artery Disease (CAD), Myocardial Infarction (SD) Mother Family Medical History: COPD, Coronary Artery Disease (CAD), Deep Vein Th rombosis (DVT) Brother(s) Family Medical History: Coronary Artery Disease (CAD), Myocardial Infarction (SD) Sister(s) Family Medical History: Cancer Additional Family Medical History / Comment(s): Uterine Medications and Allergies Home Medications Medication Instructions Recorded Confirmed Type Levothyroxine Sodium [Synthroid] 100 mcg PO [id number] 09/10/16 09/12/21 History Metoprolol Succinate [Toprol XL] 100 mg PO DAILY 09/10/16 09/12/21 History Isosorbide Mononitrate ER [Imdur] 60 mg PO DAILY 09/28/19 09/12/21 History Melatonin 5 mg PO HS PRN 09/28/19 09/12/21 History rOPINIRole HCL [Requip] 0.25 mg PO HS 09/28/19 09/12/21 History Apixaban [Eliquis] 2.5 mg PO BID 02/16/21 09/12/21 History Cinacalcet [Sensipar] 30 mg PO MOFR@0700 02/16/21 09/12/21 History Ergocalciferol (Vitamin D2) 1,250 mcg PO Q30D 02/16/21 09/12/21 History [Drisdol (50,000 Iu)] Loperamide [Imodium] 2 mg PO TID PRN 02/16/21 09/12/21 History Atorvastatin Calcium [Lipitor] 20 mg PO DAILY 03/02/21 09/12/21 History Albuterol Inhaler [Ventolin Hfa 2 puff INHALATION RT-QID #8 gm 08/20/21 09/12/21 Rx Inhaler] Cyanocobalamin [Vitamin B-12] 1,000 mcg PO DAILY #30 tab 08/20/21 09/12/21 Rx Furosemide [Lasix] 40 mg PO DAILY #30 tab 08/20/21 09/12/21 Rx Spironolactone [Aldactone] 25 mg PO DAILY #30 tab 08/20/21 09/12/21 Rx amLODIPine [Norvasc] 10 mg PO DAILY #60 tab 08/20/21 09/12/21 Rx lisinopriL [Zestril] 10 mg PO DAILY #30 tab 08/20/21 09/12/21 Rx Amitriptyline HCl [Elavil] 10 mg PO HS 09/12/21 09/12/21 History Aspirin EC [Ecotrin Low Dose] 81 mg PO DAILY 09/12/21 09/12/21 History Triamcinolone 0.1% Cream [Kenalog 1 applic TOPICAL BID 09/12/21 09/12/21 History 0.1% Cream] Allergies Allergy/AdvReac Type Severity Reaction Status Date / Time black pepper Allergy Severe Anaphylaxis Verified 09/12/21 14:15 Influenza Virus Vaccines Allergy Severe Unknown Verified 09/12/21 14:15 peanut Allergy Severe Anaphylaxis Verified 09/12/21 14:15 prednisone Allergy Severe Dyspnea Verified 09/12/21 14:15 atropine [From ] Allergy Unknown Verified 09/12/21 14:15 chocolate flavor Allergy Itching Verified 09/12/21 14:15 hyoscyamine [From ] Allergy Unknown Verified 09/12/21 14:15 Iodinated Contrast Media Allergy Swelling Verified 09/12/21 14:15 [Iodinated Contrast Media - IV Dye] phenobarbital [From ] Allergy Unknown Verified 09/12/21 14:15 propoxyphene [From Darvon] Allergy Unknown Verified 09/12/21 14:15 scopolamine [From ] Allergy Unknown Verified 09/12/21 14:15 Sulfa (Sulfonamide Allergy Rash/Hives Verified 09/12/21 14:15 Antibiotics) venom-honey bee Allergy Unknown Verified 09/12/21 14:15 [bee venom (honey bee)] acetaminophen [From Mingo] AdvReac Hallucinati Verified 09/12/21 14:15 ons belladonna alkaloids AdvReac Unknown Verified 09/12/21 14:15 hydrocodone [From Mingo] AdvReac Hallucinati Verified 09/12/21 14:15 ons simvastatin [From Zocor] AdvReac WEAKNESS Verified 09/12/21 14:15 SMELT Allergy Itching Uncoded 09/12/21 14:15 Physical Exam Vitals: Vital Signs Temp Pulse Pulse Resp BP BP Pulse Ox 09/13/21 12:49 97.7 F 67 18 95/51 97 09/13/21 11:39 68 09/13/21 11:28 68 09/13/21 04:23 98.3 F 65 16 113/55 95 09/12/21 19:36 69 09/12/21 19:28 75 09/12/21 19:04 97.7 F 60 18 123/59 100 09/12/21 15:57 97.5 F L 85 18 106/64 97 Intake and Output 09/13/21 09/13/21 09/13/21 06:59 14:59 22:59 Other: Voiding Method Bedside Commode # Voids 2 1 Weight 71.753 kg Results CBC & Chem 7: 09/13/21 06:31 09/13/21 06:31 Labs: Abnormal Lab Results - Last 24 Hours (Table) 09/12/21 09/12/21 09/12/21 Range/Units 18:58 20:40 20:40 WBC 2.0 L (3.8-10.6) k/uL RBC 3.07 L (3.80-5.40) m/uL Hgb 10.4 L (11.4-16.0) gm/dL Hct 32.4 L (34.0-46.0) % MCV 105.6 H (80.0-100.0) fL RDW 16.2 H (11.5-15.5) % Plt Count 34 L (150-450) k/uL Neutrophils # (Manual) 0.10 L* (1.3-7.7) k/uL Lymphocytes # (Manual) (1.0-4.8) k/uL Macrocytosis ESR 26 H (0-20) mm/hr APTT 21.6 L (22.0-30.0) sec D-Dimer >34.10 H (<0.60) mg/L FEU BUN (9.0-27.0) mg/dL Creatinine (0.6-1.5) mg/dL Est GFR (CKD-EPI)AfAm (60.0-200.0) Est GFR (CKD-EPI)NonAf (60.0-200.0) BUN/Creatinine Ratio (12.00-20.00) Ratio C-Reactive Protein 4.0 H (<1.0) mg/dL Albumin (3.8-4.9) g/dL Albumin/Globulin Ratio (1.60-3.17) g/dL Procalcitonin (0.02-0.09) ng/mL TSH 0.097 L (0.465-4.680) mIU/L Free T4 2.33 H (0.78-2.19) ng/dL PTH Intact (14.0-72.0) pg/mL 09/12/21 09/13/21 09/13/21 Range/Units 20:40 06:31 06:31 WBC 1.5 L (3.8-10.6) k/uL RBC 3.11 L (3.80-5.40) m/uL Hgb 10.4 L (11.4-16.0) gm/dL Hct 32.9 L (34.0-46.0) % MCV 105.6 H (80.0-100.0) fL RDW 17.2 H (11.5-15.5) % Plt Count 34 L (150-450) k/uL Neutrophils # (Manual) 0.08 L* (1.3-7.7) k/uL Lymphocytes # (Manual) 0.99 L (1.0-4.8) k/uL Macrocytosis Marked A ESR (0-20) mm/hr APTT (22.0-30.0) sec D-Dimer (<0.60) mg/L FEU BUN 69.9 H (9.0-27.0) mg/dL Creatinine 1.7 H (0.6-1.5) mg/dL Est GFR (CKD-EPI)AfAm 31.8 L (60.0-200.0) Est GFR (CKD-EPI)NonAf 27.4 L (60.0-200.0) BUN/Creatinine Ratio 41.86 H (12.00-20.00) Ratio C-Reactive Protein (<1.0) mg/dL Albumin 3.7 L (3.8-4.9) g/dL Albumin/Globulin Ratio 1.22 L (1.60-3.17) g/dL Procalcitonin (0.02-0.09) ng/mL TSH (0.465-4.680) mIU/L Free T4 (0.78-2.19) ng/dL PTH Intact 96.8 H (14.0-72.0) pg/mL 09/13/21 Range/Units 06:31 WBC (3.8-10.6) k/uL RBC (3.80-5.40) m/uL Hgb (11.4-16.0) gm/dL Hct (34.0-46.0) % MCV (80.0-100.0) fL RDW (11.5-15.5) % Plt Count (150-450) k/uL Neutrophils # (Manual) (1.3-7.7) k/uL Lymphocytes # (Manual) (1.0-4.8) k/uL Macrocytosis ESR (0-20) mm/hr APTT (22.0-30.0) sec D-Dimer (<0.60) mg/L FEU BUN (9.0-27.0) mg/dL Creatinine (0.6-1.5) mg/dL Est GFR (CKD-EPI)AfAm (60.0-200.0) Est GFR (CKD-EPI)NonAf (60.0-200.0) BUN/Creatinine Ratio (12.00-20.00) Ratio C-Reactive Protein (<1.0) mg/dL Albumin (3.8-4.9) g/dL Albumin/Globulin Ratio (1.60-3.17) g/dL Procalcitonin 0.17 H (0.02-0.09) ng/mL TSH (0.465-4.680) mIU/L Free T4 (0.78-2.19) ng/dL PTH Intact (14.0-72.0) pg/mL Microbiology - Last 24 Hours (Table) 09/12/21 16:56 Blood Culture Gram Stain - Preliminary Blood Blood Culture - Preliminary Escherichia coli Streptococcus species 09/12/21 16:56 Blood Culture - Final Blood 09/12/21 14:40 Urine Culture - Preliminary Urine,Voided
[2021-09-14] MEDS: BARIUM SULFATE 450 ML ORAL.SUSP BOTTLE PO PRN ×2 (11:47→14:28)
--- NOTE | 2021-09-14 12:09 | P.PN ---
Subjective Progress Note Date: 09/14/21 Principal diagnosis: MDS SOB VTE CBC stable. Blood cultures positive. Toes slightly better per pt. Objective - Vital Signs Vital signs: Vital Signs Temp 98.5 F 09/14/21 04:30 Pulse 64 09/14/21 08:05 Resp 20 09/14/21 04:30 BP 111/66 09/14/21 04:30 Pulse Ox 97 09/14/21 04:30 Intake & Output 09/13/21 09/14/21 09/14/21 18:59 06:59 18:59 Intake Total 320 Balance 320 Weight 71.668 kg Intake: Oral 320 Other: Voiding Method Bedside Commode Bedside Commode Bedside Commode # Voids 2 3 - Exam Gen.: In no acute distress HEENT: No scleral icterus. Lungs: No respiratory distress. Heart: Regular rate. Right leg swollen and painful. Abdomen: Soft. MSK: Erythematous toes, with petechial rash on dorsom of feet bilaterally. Neuro: Alert and oriented 3. Skin: No jaundice. Psych: Appropriate affect. - Labs CBC & Chem 7: 09/13/21 06:31 09/13/21 06:31 Labs: Abnormal Lab Results - Last 24 Hours (Table) 09/12/21 09/12/21 09/13/21 Range/Units 20:40 20:40 06:31 Neutrophils # (Manual) 0.08 L* (1.3-7.7) k/uL Lymphocytes # (Manual) 0.99 L (1.0-4.8) k/uL BUN (9.0-27.0) mg/dL Creatinine (0.6-1.5) mg/dL Est GFR (CKD-EPI)AfAm (60.0-200.0) Est GFR (CKD-EPI)NonAf (60.0-200.0) BUN/Creatinine Ratio (12.00-20.00) Ratio Albumin (3.8-4.9) g/dL Albumin/Globulin Ratio (1.60-3.17) g/dL Vitamin D 25-Hydroxy 25.0 L (30.0-100.0) ng/mL Procalcitonin (0.02-0.09) ng/mL PTH Intact 96.8 H (14.0-72.0) pg/mL 09/13/21 09/13/21 Range/Units 06:31 06:31 Neutrophils # (Manual) (1.3-7.7) k/uL Lymphocytes # (Manual) (1.0-4.8) k/uL BUN 69.9 H (9.0-27.0) mg/dL Creatinine 1.7 H (0.6-1.5) mg/dL Est GFR (CKD-EPI)AfAm 31.8 L (60.0-200.0) Est GFR (CKD-EPI)NonAf 27.4 L (60.0-200.0) BUN/Creatinine Ratio 41.86 H (12.00-20.00) Ratio Albumin 3.7 L (3.8-4.9) g/dL Albumin/Globulin Ratio 1.22 L (1.60-3.17) g/dL Vitamin D 25-Hydroxy (30.0-100.0) ng/mL Procalcitonin 0.17 H (0.02-0.09) ng/mL PTH Intact (14.0-72.0) pg/mL Microbiology - Last 24 Hours (Table) 09/12/21 16:56 Blood Culture Gram Stain - Preliminary Blood Blood Culture - Preliminary Escherichia coli Streptococcus species 09/12/21 20:40 Blood Culture - Preliminary Blood No Growth after 24 hours 09/12/21 14:40 Urine Culture - Preliminary Urine,Voided Gram Neg Bacilli 09/12/21 16:56 Blood Culture - Final Blood Assessment and Plan Assessment: 1. Pancytopenia 2. Hyperthyroidism 3. Possible ischemic exremities 4. Bacteremia 5. Sepsis 6. CKD 7. History of VTE 8. MDS Plan: Ms. Aragon is a very pleasant 86-year-old female with multiple comorbidities who is here for shortness of breath and calf pain. Workup revealed worsening pancytopenia. She does have underlying MDS. She also had increasing discoloration of her fingertips and toes concerning for ischemic changes. She was found to be bacteremic with gram-negative bacilli, E. coli. Workup in addition revealed hyper-thyroidism otherwise pending. She did have her 2-D echo which revealed an EF of 40%, overall unremarkable. Arterial Doppler of the lower extremities overall unremarkable. Cardiology consulted. Awaiting CBC from this morning. I suspect her worsening cytopenias are due to underlying sepsis. She is on anticoagulation and there is no obvious signs of thromboembolic disease at this point. Await cardiology recommendations for possible underlying vascular ischemic changes, although they seem to be improving with antibiotics and treatment of sepsis. We'll continue to follow patient with you.
--- NOTE | 2021-09-14 13:13 | P.PN ---
Subjective Progress Note Date: 09/14/21 History of present illness: HISTORY OF PRESENT ILLNESS The patient is an 86-year-old female patient with extensive cardiovascular history consistent of history of stroke in 2019, non-ischemic cardiomyopathy, valvular heart disease with mitral and tricuspid regurgitation and also permanent atrial fibrillation on oral anticoagulation with Eliquis, hypertension and dyslipidemia. We have been asked to see the patient regarding ischemia. Patient states that she has difficulty with walking with history of blood clots and thought she had a blood clot now. She states she has been on eliquis for the past 1 year and admits to recent hospitalization a month ago for heart failure. 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 She had a recent fall in the bathroom causing bruising to the left jaw but she denies frequent falls. She complains of shortness of breath with exertion. She also complains of a rash which is new to her toes dorsal feet and fingers, complains of numbness to her toes and itching at nighttime. EKG is atrial fibrillation with left bundle branch block Ultrasound of the lower extremity rash groin revealed no pseudoaneurysm or aneurysm or hematoma. Renal ultrasound reveals renal cortical atrophy. Bilateral renal cortical cysts. No evidence of solid renal mass or obstruction. No evidence of bladder mass. VQ scan low probability for pulmonary embolism. Echocardiogram reveals EF 40-45%, moderate concentric left ventricular hypertrophy, mild mitral regurgitation, mild tricuspid regurgitation, trace aortic regurgitation Laboratory studies: WBC 1.5, hemoglobin 10.4, platelet count 34. Electrolytes normal. BUN 69 creatinine 1.77. Liver function tests normal. TSH 0.097, free T4 2 0.33, parathyroid hormone intact 96.8. Urinalysis negative for infection. Dykes virus PCR not detected. Blood culture positive for gram-negative cocci/bacilli. Home cardiac medications: Amlodipine 10 mg daily, eliquis 2.5 mg twice daily, aspirin 81 mg daily, eliquis 2.5 mg twice daily, atorvastatin 20 mg daily, Lasix 40 mg daily, Imdur 60 mg daily, lisinopril 10 mg daily, Toprol-XL 100 mg daily, Aldactone 25 mg daily Previous echocardiogram from 2020 revealed impaired LV function was EF between 35-40% with moderate to severe mitral and tricuspid regurgitation and mild pulmonary 09/14 Patient complains of feeling weak and tired unable to even walk to the bathroom as well as short of breath. She denies any chest pain or chest pressure. She states she is eating okay and nurse states she ate 50% of her breakfast. ID and oncology on consult and patient is scheduled for a CAT scan of the abdomen and pelvis to determine cause of gram-negative bacteremia. PHYSICAL EXAMINATION Gen: This is a 86-year-old frail-appearing female, resting in bed and appears to be in no acute distress. VS: Afebrile, heart rate in the 60s, blood pressure 111/66, pulse ox 97% on room air. HEENT: Head is atraumatic, normocephalic. Pupils equal, round. Sclerae is anicteric. Ecchymosis to the left jaw. NECK: Supple. No JVD. No lymphadenopathy. No thyromegaly. LUNGS: Diminished bilaterally. No wheezes or rhonchi. No intercostal retractions. HEART: Irregularly irregular rate and rhythm. Systolic murmur. ABDOMEN: Soft. Bowel sounds are present. No masses. No tenderness. EXTREMITIES: No pedal edema. No calf tenderness. Petechiae like rash to the bilateral feet/toes, tenderness to the bilateral lower extremities. NEUROLOGICAL: Patient is awake, alert and oriented x3. Cranial nerves 2 through 12 are grossly intact. ASSESSMENT Bacteremia MDS Thrombocytopenia Severe neutropenia History of DVT History of CVA in 2019 Nonischemic cardiomyopathy Valvular heart disease with mitral and tricuspid regurgitation Permanent atrial fibrillation Hypertension Hyperlipidemia Hypothyroidism PLAN Agree with holding eliquis due to thrombocytopenia Hold amlodipine due to soft blood pressure readings Recommend continuing other cardiac medications Decrease levothyroxine to 88 g daily, further adjustment per internal medicine Recommend consult with ID for gram negatives bacteremia in an immunocompromised host Further recommendations to follow based upon clinical course Thank you kindly for this consultation. Nurse practitioner note has been reviewed, I agree with documented findings and plan of care. Patient was seen and examined. Objective - Vital Signs Vital signs: Vital Signs Temp 98.5 F 09/14/21 04:30 Pulse 64 09/14/21 11:42 Resp 20 09/14/21 04:30 BP 111/66 09/14/21 04:30 Pulse Ox 97 09/14/21 04:30 Intake & Output 09/13/21 09/14/21 09/14/21 18:59 06:59 18:59 Intake Total 320 Balance 320 Weight 71.668 kg Intake: Oral 320 Other: Voiding Method Bedside Commode Bedside Commode Bedside Commode # Voids 2 3 - Labs CBC & Chem 7: 09/13/21 06:31 09/13/21 06:31 Labs: Abnormal Lab Results - Last 24 Hours (Table) 09/12/21 09/13/21 09/13/21 Range/Units 20:40 06:31 06:31 BUN 69.9 H (9.0-27.0) mg/dL Creatinine 1.7 H (0.6-1.5) mg/dL Est GFR (CKD-EPI)AfAm 31.8 L (60.0-200.0) Est GFR (CKD-EPI)NonAf 27.4 L (60.0-200.0) BUN/Creatinine Ratio 41.86 H (12.00-20.00) Ratio Albumin 3.7 L (3.8-4.9) g/dL Albumin/Globulin Ratio 1.22 L (1.60-3.17) g/dL Vitamin D 25-Hydroxy 25.0 L (30.0-100.0) ng/mL Procalcitonin 0.17 H (0.02-0.09) ng/mL Microbiology - Last 24 Hours (Table) 09/12/21 16:56 Blood Culture Gram Stain - Preliminary Blood Blood Culture - Preliminary Escherichia coli Streptococcus species 09/12/21 20:40 Blood Culture - Preliminary Blood No Growth after 24 hours 09/12/21 14:40 Urine Culture - Preliminary Urine,Voided Gram Neg Bacilli
[2021-09-14] MEDS: SODIUM CHLORIDE 0.9% 1,000 ML IV SCH (14:01)
--- NOTE | 2021-09-14 16:02 | CT ---
EXAMINATION TYPE: CT abdomen pelvis wo con DATE OF EXAM: 09/14/2021 COMPARISON: 02/26/2021 HISTORY: E. coli bacteremia, question abdominal source. CT DLP: 941 mGycm Automated exposure control for dose reduction was used. Images obtained from the diaphragm to the floor the pelvis with oral contrast. Lung bases are clear of consolidation. Heart is slightly enlarged. There is no pericardial effusion. There is no pleural effusion. Liver spleen and stomach pancreas appear intact. The bile ducts are non dilated. Gallbladder appears absent. There is inferior vena cava filter. There is 2 cm low-density right adrenal mass consistent with benign disease and unchanged. Kidneys sh ow no hydronephrosis. There is 4.5 cm cortical cyst posterior left kidney. There is no retroperitonea l adenopathy. Abdominal aorta is atheromatous. Urinary bladder is empty. There is no inguinal hernia. There is no free fluid in the pelvis. There is no sign of a pelvic mass. There are sigmoid diverticu la. There is no diverticulitis. Appendix not seen. No sign of thickened appendix. Abdominal aorta is atheromatous. There is 3.6 cm aneurysm of the lower thoracic aorta. There is a mild degenerative first-degree L4-5 spondylolisthesis. There is no lumbar compression frac ture. The bony pelvis is intact. Hip joints are intact. IMPRESSION: There is sigmoid diverticulosis without diverticulitis. Atherosclerotic vascular disease. Mild cardio megaly. No acute abnormality within the abdomen and pelvis. No sign of a cause for sepsis. No adverse change compared to old exam.
[2021-09-14] MEDS: AMITRIPTYLINE HCL 10 MG TAB PO SCH (21:07)
--- NOTE | 2021-09-14 21:27 | P.PN ---
Subjective This is a pleasant 86 years old female with multiple medical problems was presented to the emergency room because of right leg redness, also she was found to have leukopenia/neutropenia and thrombocytopenia, she has history of bilateral feet changes since 07/2021 and hematology/oncology team recommended cardiology evaluation to rule out right leg ischemia. Patient also has evidence of acute kidney injury on top of her chronic kidney disease stage III at least since 2018. She has history of DVT per hematology oncology team but no anticoagulation, especially she has thrombocytopenia Today her CULTURE came back positive with E. coli and Streptococcus and she has 2 urine analysis samples one of them is suspicious for infection and culture is growing gram-negative bacilli while echocardiogram showing ejection fraction of 40-45%. Patient that that she is fully awake and oriented, looks comfortable in bed but she was complaining of from her right leg which is red and warm and swollen and tender to touch. She denies chest pain, dyspnea or coughing. No abdominal pain. 09/14/2021 Patient is awake and alert, no distress. Hemodynamically stable, blood pressure was low normal, her Norvasc was put on hold and the muscle and 50 mL was started today. No abdominal pain or chest pain. She has right leg still swollen, tender and warm, She has positive blood culture for E. coli and Streptococcus, final result is pending. Repeat blood cultures pending as well. Also she has positive urine culture for sensitive E. coli and Klebsiella. Christal ent was vague about her urinary symptoms. She is currently covered with ceftriaxone 2 g daily and abdominal computed tomography scan with oral contrast was unremarkable. Eliquis is on hold. Levothyroxine dose was lowered 100 g down to 88 g. Objective - Vital Signs Vital signs: Vital Signs Temp 98.5 F 09/14/21 04:30 Pulse 64 09/14/21 08:05 Resp 20 09/14/21 04:30 BP 111/66 09/14/21 04:30 Pulse Ox 97 09/14/21 04:30 Intake & Output 09/13/21 09/14/21 09/14/21 18:59 06:59 18:59 Intake Total 320 Balance 320 Weight 71.668 kg Intake: Oral 320 Other: Voiding Method Bedside Commode Bedside Commode Bedside Commode # Voids 2 3 - Exam GENERAL: The patient is alert and oriented x3, not in any acute distress. Well developed, well nourished. HEENT: Pupils are round and equally reacting to light. EOMI. No scleral icterus. No conjunctival pallor. Normocephalic, atraumatic. No pharyngeal erythema. No thyromegaly. CARDIOVASCULAR: S1 and S2 present. No murmurs, rubs, or gallops. PULMONARY: Chest is clear to auscultation, no wheezing or crackles. ABDOMEN: Soft, nontender, nondistended, normoactive bowel sounds. No palpable organomegaly. MUSCULOSKELETAL: No joint swelling or deformity. -EXTREMITIES: No cyanosis, clubbing, or pedal edema. Right leg is swollen, warm and tender NEUROLOGICAL: Gross neurological examination did not reveal any focal deficits. SKIN: No rashes. no petechiae. - Labs CBC & Chem 7: 09/13/21 06:31 09/13/21 06:31 Labs: Abnormal Lab Results - Last 24 Hours (Table) 09/12/21 09/13/21 09/13/21 Range/Units 20:40 06:31 06:31 Neutrophils # (Manual) 0.08 L* (1.3-7.7) k/uL Lymphocytes # (Manual) 0.99 L (1.0-4.8) k/uL BUN 69.9 H (9.0-27.0) mg/dL Creatinine 1.7 H (0.6-1.5) mg/dL Est GFR (CKD-EPI)AfAm 31.8 L (60.0-200.0) Est GFR (CKD-EPI)NonAf 27.4 L (60.0-200.0) BUN/Creatinine Ratio 41.86 H (12.00-20.00) Ratio Albumin 3.7 L (3.8-4.9) g/dL Albumin/Globulin Ratio 1.22 L (1.60-3.17) g/dL Vitamin D 25-Hydroxy 25.0 L (30.0-100.0) ng/mL Procalcitonin (0.02-0.09) ng/mL 09/13/21 Range/Units 06:31 Neutrophils # (Manual) (1.3-7.7) k/uL Lymphocytes # (Manual) (1.0-4.8) k/uL BUN (9.0-27.0) mg/dL Creatinine (0.6-1.5) mg/dL Est GFR (CKD-EPI)AfAm (60.0-200.0) Est GFR (CKD-EPI)NonAf (60.0-200.0) BUN/Creatinine Ratio (12.00-20.00) Ratio Albumin (3.8-4.9) g/dL Albumin/Globulin Ratio (1.60-3.17) g/dL Vitamin D 25-Hydroxy (30.0-100.0) ng/mL Procalcitonin 0.17 H (0.02-0.09) ng/mL Microbiology - Last 24 Hours (Table) 09/12/21 16:56 Blood Culture Gram Stain - Preliminary Blood Blood Culture - Preliminary Escherichia coli Streptococcus species 09/12/21 20:40 Blood Culture - Preliminary Blood No Growth after 24 hours 09/12/21 14:40 Urine Culture - Preliminary Urine,Voided Gram Neg Bacilli 09/12/21 16:56 Blood Culture - Final Blood Assessment and Plan Assessment: Right leg swelling and tenderness, possible cellulitis, rule out right leg ischemia Bacteremia with E. coli and Streptococcus species Possible acute urinary tract infection secondary to gram-negative bacilli Leukopenia and thrombocytopenia Acute kidney injury on top of chronic kidney disease, stage III History of DVT Hypothyroidism Cardiomyopathy with ejection fraction of 40-45% History of thoracic aortic aneurysm stent, With focal fusiform aneurysmal dilatation around 7.6 cm seen on a previous x-ray Plan: This is a pleasant 86 years old female who presents with right flank swelling and tenderness, possible cellulitis, rule out ischemia, also bacteremia, JOSHUA, low WBC and platelet counts Continue with antibiotics and infectious disease consult Cardiology and hematology team consults Monitor WBCs and platelet count Labs and medication were reviewed.. Continue same treatment. Continue with symptomatic treatment. Resume home medication. Monitor lytes and vitals. DVT and GI prophylaxis. Further recommendations as per clinical course of the patient DVT prophylaxis: no heparin for severe thrombocytopenia GI Prophylaxis: Pepcid PT/OT: Pending Prognosis is guarded
--- NOTE | 2021-09-14 21:50 | US ---
EXAMINATION TYPE: US venous doppler duplex LE RT DATE OF EXAM: 09/14/2021 9:43 PM COMPARISON: NONE CLINICAL HISTORY: swelling. Right leg redness and swelling SIDE PERFORMED: Right TECHNIQUE: The lower extremity deep venous system is examined utilizing real time linear array sonog jose with graded compression, doppler sonography and color-flow sonography. VESSELS IMAGED: Common Femoral Vein Deep Femoral Vein Greater Saphenous Vein * Femoral Vein Popliteal Vein Small Saphenous Vein * Proximal Calf Veins (* superficial vessels) Right Leg: Negative for DVT, pt states h/o vein stripping, right GSV not visualized IMPRESSION: No evidence of deep vein thrombosis in the right leg.
[2021-09-15] MEDS: LEVOTHYROXINE 88 MCG TAB PO SCH (05:49)
--- NOTE | 2021-09-15 05:53 | PN ---
PROGRESS NOTE DATE OF SERVICE: 09/14/2021 REASON FOR FOLLOW UP: Bacteremia and right lower extremity cellulitis. INTERVAL HISTORY: Patient is afebrile. The patient is currently breathing comfortably. Patient denies having any chest pain, shortness of breath or cough. No abdominal pain. Overall pain and discomfort to the right leg is decreased. PHYSICAL EXAMINATION: Blood pressure 114/58 with a pulse of 50, temperature 97.8. She is 99% on room air. General description is an elderly female lying in bed in no distress. Respiratory system: Unlabored breathing. Clear to auscultation anteriorly. Heart S1, S2. Regular rate and rhythm. Abdomen soft, no tenderness. Right leg swelling and redness has slightly decreased. LABS: Hemoglobin is 10.4, white count 1.5, creatinine is 1.7. CT of abdomen and pelvis did not show any acute intraabdominal pathology. DIAGNOSTIC IMPRESSION AND PLAN: Patient with right lower extremity cellulitis. Did have mildly positive UA on admission. Repeat UA negative. Patient did have evidence of Streptococcus and E coli bacteremia. Patient is covered with Rocephin. CT of abdomen and pelvis negative for any acute abdominal pathology. Continue with Rocephin. Hopefully finish therapy with oral antibiotics. Continue supportive care. MMODL / IJN: [id number] /
[2021-09-15 08:05] LABS: Anisocytosis Slight; HCT 30.4 % (34.0-46.0); HGB 9.9 gm/dL (11.4-16.0); MCH 34.6 pg (25.0-35.0); MCHC 32.7 g/dL (31.0-37.0); MCV 105.9 fL (80.0-100.0); Macrocytosis Marked; Mean Platelet Volume 10.2; Platelet Count 30 k/uL (150-450); RBC 2.87 m/uL (3.80-5.40); RDW 16.4 % (11.5-15.5); WBC 1.5 k/uL (3.8-10.6)
[2021-09-15] MEDS: ALBUTEROL NEBULIZED 2.5 MG/3 ML INHALATION SCH ×4 (08:16→19:59)
[2021-09-15] MEDS: ATORVASTATIN 20 MG TAB PO SCH (08:22)
[2021-09-15] MEDS: lisinopriL 10 MG TAB PO SCH (08:22)
[2021-09-15] MEDS: ISOSORBIDE MONONITRATE ER 60 MG TAB.ER.24H PO SCH (08:22)
[2021-09-15] MEDS: CYANOCOBALAMIN 500 MCG TAB PO SCH (08:22)
[2021-09-15] MEDS: METOPROLOL SUCCINATE (ER) 100 MG TAB.ER.24H PO SCH (08:22)
[2021-09-15] MEDS: FAMOTIDINE 20 MG/2 ML VIAL IV SCH ×2 (08:23→21:00)
[2021-09-15] MEDS: SPIRONOLACTONE 25 MG TAB PO SCH (08:23)
[2021-09-15] MEDS: SODIUM CHLORIDE 0.9% 1,000 ML IV SCH (08:30)
[2021-09-15 10:06] LABS: Blast Cells # (M) 0.12 k/uL (0); Eosinophils # (M) 0.03 k/uL (0-0.7); Lymphocytes # (M) 1.04 k/uL (1.0-4.8); Monocytes # (M) 0.32 k/uL (0-1.0); Nucleated Red Blood Cells 0 /100 WBC (0-0); Total Cells Counted 100
[2021-09-15 10:35] LABS: Poikilocytosis (M) Present
[2021-09-15 11:38] LABS: African American GFR (CKD) 37.7 (60.0-200.0); Albumin 3.5 g/dL (3.8-4.9); Albumin/Globulin Ratio 1.24 (1.60-3.17); Anion Gap 11.2 mmol/L (10.00-18.00); BUN/Creat Ratio 39.45 Ratio (12.00-20.00); Blood Urea Nitrogen 57.2 mg/dL (9.0-27.0); Calcium 9.8 mg/dL (8.7-10.3); Globulin 2.9 g/dL (1.6-3.3); Magnesium 1.9 mg/dL (1.5-2.4); Non-African American GFR(CKD) 32.5 (60.0-200.0); Potassium 5.4 mmol/L (3.5-5.5); Total Bilirubin 0.2 mg/dL (0.30-1.20); Total Protein 6.4 g/dL (6.2-8.2)
--- NOTE | 2021-09-15 12:30 | P.PN ---
Subjective Progress Note Date: 09/15/21 HISTORY OF PRESENT ILLNESS: The patient is an 86-year-old female patient with extensive cardiovascular history consistent of history of stroke in 2019, non-ischemic cardiomyopathy, valvular heart disease with mitral and tricuspid regurgitation and also permanent atrial fibrillation on oral anticoagulation with Eliquis, hypertension and dyslipidemia. We have been asked to see the patient regarding ischemia. Patient states that she has difficulty with walking with history of blood clots and thought she had a blood clot now. She states she has been on eliquis for the past 1 year and admits to recent hospitalization a month ago for heart failure. 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 She had a recent fall in the bathroom causing bruising to the left jaw but she denies frequent falls. She complains of shortness of breath with ex ertion. She also complains of a rash which is new to her toes dorsal feet and fingers, complains of numbness to her toes and itching at nighttime. EKG is atrial fibrillation with left bundle branch block Ultrasound of the lower extremity rash groin revealed no pseudoaneurysm or aneurysm or hematoma. Renal ultrasound reveals renal cortical atrophy. Bilateral renal cortical cysts. No evidence of solid renal mass or obstruction. No evidence of bladder mass. VQ scan low probability for pulmonary embolism. Echocardiogram reveals EF 40-45%, moderate concentric left ventricular hypertrophy, mild mitral regurgitation, mild tricuspid regurgitation, trace aortic regurgitation Laboratory studies: WBC 1.5, hemoglobin 10.4, platelet count 34. Electrolytes normal. BUN 69 creatinine 1.77. Liver function tests normal. TSH 0.097, free T4 2 0.33, parathyroid hormone intact 96.8. Urinalysis negative for infection. Dykes virus PCR not detected. Blood culture positive for gram-negative cocci/ bacilli. Home cardiac medications: Amlodipine 10 mg daily, eliquis 2.5 mg twice daily, aspirin 81 mg daily, eliquis 2.5 mg twice daily, atorvastatin 20 mg daily, Lasix 40 mg daily, Imdur 60 mg daily, lisinopril 10 mg daily, Toprol-XL 100 mg daily, Aldactone 25 mg daily Previous echocardiogram from 2020 revealed impaired LV function was EF between 35-40% with moderate to severe mitral and tricuspid regurgitation and mild pulmonary 09/14 Patient complains of feeling weak and tired unable to even walk to the bathroom as well as short of breath. She denies any chest pain or chest pressure. She s tates she is eating okay and nurse states she ate 50% of her breakfast. ID and oncology on consult and patient is scheduled for a CAT scan of the abdomen and pelvis to determine cause of gram-negative bacteremia. 09/15/2021 Patient examined this morning at the bedside. She denies chest pain or pressure. She denies shortness of breath. Echocardiogram completed revealing ejection fraction 40-45%, septal hypokinesis, trace aortic regurgitation, mild mitral regurgitation, and mild tricuspid regurgitation. Right lower extremity Doppler negative for DVT. PHYSICAL EXAM: VITAL SIGNS: Reviewed. GENERAL: Well-developed in no acute distress. NECK: Supple. No JVD or thyromegaly LUNGS: Respirations even and unlabored. Lungs essentially clear to auscultation bilaterally. HEART: Irregular rate and rhythm. S1 and S2 heard. Systolic murmur noted. EXTREMITIES: Normal range of motion. Peripheral pulses intact. No lower extremity edema. Petechial rash to feet bilaterally. ASSESSMENT: Bacteremia MDS Thrombocytopenia Severe neutropenia History of DVT History of CVA in 2019 Nonischemic cardiomyopathy Valvular heart disease with mitral and tricuspid regurgitation Permanent atrial fibrillation Hypertension Hyperlipidemia Hypothyroidism PLAN: Continue to hold Eliquis. Hematology following. Await further recommendations Monitor labs Amlopidine on hold secondary to decreased BP yesterday Infectious disease following No further inpatient recommendations from a cardiac standpoint Nurse practitioner note has been reviewed by physician. Signing provider agrees with the documented findings, assessment, and plan of care. Objective - Vital Signs Vital signs: Vital Signs Temp 98.0 F 09/15/21 11:35 Pulse 83 09/15/21 11:35 Resp 16 09/15/21 11:35 BP 112/62 09/15/21 11:35 Pulse Ox 97 09/15/21 11:35 Intake & Output 09/14/21 09/15/21 09/15/21 18:59 06:59 18:59 Intake Total 600 Output Total 1 Balance 599 Weight 71.713 kg Intake: Intake, IV Titration 600 Amount Sodium Chloride 0.9% 1, 600 000 ml @ 50 mls/hr IV . Q20H [facility] Rx#:[id number] Output: Urine 1 Other: Voiding Method Bedside Commode Toilet Toilet # Voids 2 # Bowel Movements 1 - Labs CBC & Chem 7: 09/15/21 06:55 09/15/21 06:55 Labs: Abnormal Lab Results - Last 24 Hours (Table) 09/15/21 09/15/21 09/15/21 Range/Units 06:55 06:55 06:55 WBC 1.5 L (3.8-10.6) k/uL RBC 2.87 L (3.80-5.40) m/uL Hgb 9.9 L (11.4-16.0) gm/dL Hct 30.4 L (34.0-46.0) % MCV 105.9 H (80.0-100.0) fL RDW 16.4 H (11.5-15.5) % Plt Count 30 L (150-450) k/uL Blast Cells % 8 H* % Blast Cells # (Man) 0.12 H (0) k/uL Macrocytosis Marked A Sodium 134 L (135-145) mmol/L BUN 57.2 H (9.0-27.0) mg/dL Est GFR (CKD-EPI)AfAm 37.7 L (60.0-200.0) Est GFR (CKD-EPI)NonAf 32.5 L (60.0-200.0) BUN/Creatinine Ratio 39.45 H (12.00-20.00) Ratio Total Bilirubin 0.20 L (0.30-1.20) mg/dL Albumin 3.5 L (3.8-4.9) g/dL Albumin/Globulin Ratio 1.24 L (1.60-3.17) g/dL Procalcitonin 0.10 H (0.02-0.09) ng/mL Microbiology - Last 24 Hours (Table) 09/12/21 20:40 Blood Culture - Preliminary Blood No Growth after 48 hours 09/12/21 14:40 Urine Culture - Final Urine,Voided Klebsiella pneumoniae Escherichia coli 09/12/21 16:56 Blood Culture Gram Stain - Preliminary Blood Blood Culture - Preliminary Escherichia coli Streptococcus species
[2021-09-15 13:16] LABS: APTT 47 Sec(s) (<43); APTT 1:1 Mix 43 Sec(s) (<43); DRVVT 1:1 Mix 43 Sec(s) (<44); Dilute Russell Viper Venom 60 Sec(s) (<44)
--- NOTE | 2021-09-15 14:01 | P.PN ---
Subjective Progress Note Date: 09/15/21 Principal diagnosis: Pancytopenia, MDS In f/u today pt states that her feet and ankles are sore but the color has improved, not as cold to touch, denies any other bleeding, no fever, nausea, urinary symptoms or diarrhea. Objective - Vital Signs Vital signs: Vital Signs Temp 98.0 F 09/15/21 11:35 Pulse 83 09/15/21 11:35 Resp 16 09/15/21 11:35 BP 112/62 09/15/21 11:35 Pulse Ox 97 09/15/21 11:35 Intake & Output 09/14/21 09/15/21 09/15/21 18:59 06:59 18:59 Intake Total 600 Output Total 1 Balance 599 Weight 71.713 kg Intake: Intake, IV Titration 600 Amount Sodium Chloride 0.9% 1, 600 000 ml @ 50 mls/hr IV . Q20H [facility] Rx#:[id number] Output: Urine 1 Other: Voiding Method Bedside Commode Toilet Toilet # Voids 2 # Bowel Movements 1 - Constitutional General appearance: Present: average body habitus, cooperative, no acute distress - EENT Eyes: Present: anicteric sclerae, EOMI ENT: Present: hearing grossly normal - Respiratory Details: resp even and unlabored at rest - Integumentary Integumentary Comment(s): feet are cool to touch, rubor of the toes, patchy lower extremity redness - Neurologic Neurologic: Present: CNII-XII intact - Musculoskeletal Musculoskeletal: Present: generalized weakness - Psychiatric Psychiatric: Present: A&O x's 3, appropriate affect, intact judgment & insight - Labs CBC & Chem 7: 09/15/21 06:55 09/15/21 06:55 Labs: Abnormal Lab Results - Last 24 Hours (Table) 09/13/21 09/15/21 09/15/21 Range/Units 06:31 06:55 06:55 WBC 1.5 L (3.8-10.6) k/uL RBC 2.87 L (3.80-5.40) m/uL Hgb 9.9 L (11.4-16.0) gm/dL Hct 30.4 L (34.0-46.0) % MCV 105.9 H (80.0-100.0) fL RDW 16.4 H (11.5-15.5) % Plt Count 30 L (150-450) k/uL Blast Cells % 8 H* % Blast Cells # (Man) 0.12 H (0) k/uL Macrocytosis Marked A Lupus Anticoag aPTT 47 H (<43) Sec(s) Dil Felice Viper Venom 60 H (<44) Sec(s) Sodium (135-145) mmol/L BUN (9.0-27.0) mg/dL Est GFR (CKD-EPI)AfAm (60.0-200.0) Est GFR (CKD-EPI)NonAf (60.0-200.0) BUN/Creatinine Ratio (12.00-20.00) Ratio Total Bilirubin (0.30-1.20) mg/dL Albumin (3.8-4.9) g/dL Albumin/Globulin Ratio (1.60-3.17) g/dL Procalcitonin 0.10 H (0.02-0.09) ng/mL 09/15/21 Range/Units 06:55 WBC (3.8-10.6) k/uL RBC (3.80-5.40) m/uL Hgb (11.4-16.0) gm/dL Hct (34.0-46.0) % MCV (80.0-100.0) fL RDW (11.5-15.5) % Plt Count (150-450) k/uL Blast Cells % % Blast Cells # (Man) (0) k/uL Macrocytosis Lupus Anticoag aPTT (<43) Sec(s) Dil Felice Viper Venom (<44) Sec(s) Sodium 134 L (135-145) mmol/L BUN 57.2 H (9.0-27.0) mg/dL Est GFR (CKD-EPI)AfAm 37.7 L (60.0-200.0) Est GFR (CKD-EPI)NonAf 32.5 L (60.0-200.0) BUN/Creatinine Ratio 39.45 H (12.00-20.00) Ratio Total Bilirubin 0.20 L (0.30-1.20) mg/dL Albumin 3.5 L (3.8-4.9) g/dL Albumin/Globulin Ratio 1.24 L (1.60-3.17) g/dL Procalcitonin (0.02-0.09) ng/mL Microbiology - Last 24 Hours (Table) 09/12/21 20:40 Blood Culture - Preliminary Blood No Growth after 48 hours 09/12/21 14:40 Urine Culture - Final Urine,Voided Klebsiella pneumoniae Escherichia coli 09/12/21 16:56 Blood Culture Gram Stain - Preliminary Blood Blood Culture - Preliminary Escherichia coli Streptococcus species - Imaging and Cardiology CT scan - abdomen: report reviewed CT scan - pelvis: report reviewed Venous US: report reviewed Assessment and Plan (1) Ischemia of both lower extremities Narrative/Plan: Cardiology has seen pt. Current Visit: Yes Status: Acute Priority: High Code(s): I99.8 - OTHER DISORDER OF CIRCULATORY SYSTEM SNOMED Code(s): 009994849 (2) Myelodysplastic syndrome Narrative/Plan: Hx of, no treatment for the same. Current Visit: Yes Status: Chronic Priority: Medium Code(s): D46.9 - MYELODYSPLASTIC SYNDROME, UNSPECIFIED SNOMED Code(s): 712536136 (3) Pancytopenia Narrative/Plan: Baseline low counts 2/2 to MDS, exacerbated by acute illness, infection. Cont to monitor CBC. Transfuse for Hgb <7, or plt < 10,000 unless symptomatic. Monitor closely for any s/s/ bleeding. No anticoagulation for plt <50,000. Resume pt eliquis once plts are >50,000 Current Visit: Yes Status: Acute Priority: High Code(s): D61.818 - OTHER PANCYTOPENIA SNOMED Code(s): 744831139 (4) Pulmonary embolism Narrative/Plan: Holding eliquis 2/2 plt,50K Current Visit: No Status: Chronic Priority: Medium Code(s): I26.99 - OTHER PULMONARY EMBOLISM WITHOUT ACUTE COR PULMONALE SNOMED Code(s): 31535032 (5) History of DVT (deep vein thrombosis) Narrative/Plan: Holding eliquis 2/2 plt<50K Current Visit: No Status: Chronic Priority: Medium Code(s): Z86.718 - PERSONAL HISTORY OF OTHER VENOUS THROMBOSIS AND EMBOLISM SNOMED Code(s): 201387203 Plan: Pt symptoms seem to be slowly improving with treatment of infection and holding of anticoagulation because of low plt counts. Some of pt presenting symptoms may have been a result of oozing of blood from the distal capillary beds since she was on anticoagulation with low plt at presentation. Will see how pt progresses through hospitalization and as her counts recover to her baseline. HIT ab, and vasculitis labs pending. Dr ferrariests: I have performed H&P, developed impression and plan of care. Discussed with dictator, agree with dictation, documented as a scribe.
--- NOTE | 2021-09-15 14:33 | P.GSCN ---
History of Present Illness Consult date: 09/15/21 Reason for Consult: Abdominal aortic aneurysm history of the thoracic and AAA stenting Requesting physician: Petros E Sheet History of present illness: 86-year-old female with multiple comorbidities including myelodysplastic syndrome, coronary artery disease cardiomyopathy, atrial fibrillation, history of stroke valvular disease, thoracic and abdominal aortic aneurysm status post stenting who presented to the emergency department with complaints of shortness of breath and right calf pain with redness and swelling on 09/12/2021. And states that she had a rash that began to her lower extremities and is now going to her hands. Then she noticed redness down her right lower extremity with some swelling as well as changes to the color of her toes. Patient has a history of DVT and therefore thought possibly she had a recurrent DVT. Venous duplex has been negative for DVT. She also had an arterial study for pseudoaneurysm which was negative. The patient had positive UTI with Klebsiella and E. coli as well as E. coli bacteremia. Infectious disease was consulted and ordered a CT of the abdomen and pelvis showed a 3.6 cm aneurysm of the lower thoracic aorta. The patient states she has a history of thoracic aortic aneurysm repair with stenting about 3-[address] Hester from [facility]. Patient has not had a recent follow-up but states that she's supposed to have further workup and possible procedure however patient does not want any surgical procedures performed. She is currently denying any chest pain, shortness of breath, abdominal pain does state that she does have this discomfort in her lower extremities. Tenderness to her toes with palpation. Review of Systems 14 point review of systems was completed all pertinent positives and negatives as stated in the HPI Past Medical History Past Medical History: Atrial Fibrillation, Blood Disorder, Coronary Artery Disease (CAD), Chest Pain / Angina, Heart Failure, CVA/TIA, Deep Vein Thrombosis (DVT), Eye Disorder, GERD/Reflux, Hyperlipidemia, Hypertension, Myocardial Infarction (MO), Osteoarthritis (OA), Pneumonia, Syncope, Thyroid Disorder, Vascular Disorder Additional Past Medical History / Comment(s): Pt hx afib,. 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 DVTs multiple in R leg and once in L arm, PEs- showering pulmonary embolisms bilateral lungs, chronic thrombophlebitis, coronary blockages, leaky cardiac valves, AAA thoracic and abdominal both stented, duodenal ulcer, hiatal hernia, diverticular dx, colitis, IBS, H. Pylori, frequent diarrhea, chronic anemia, bronchitis, pneumonias, macular degeneration bilaterally, syncopal episodes. Last Myocardial Infarction Date:: UNKNOWN History of Any Multi-Drug Resistant Organisms: None Reported Past Surgical History: Appendectomy, Cholecystectomy, Heart Catheterization, Hysterectomy Additional Past Surgical History / Comment(s): 09/2015 thoracic aortic aneurysm stent, 07/2017 thoracic aortic aneurysm stent leaking and another stent placed as well as abdominal aortic aneurysm stented, cardiac caths, green field filter, bone marrow aspiration, exploratory lap for adhesions, EGD/colonoscopies with benign polypectomy, hemorrhoidectomy, R leg vein stripping. Past Anesthesia/Blood Transfusion Reactions: Blood Transfusion Reaction Additional Past Anesthesia/Blood Transfusion Reaction / Comm: Heart failure/fluid overload Past Psychological History: No Psychological Hx Reported Smoking Status: Never smoker, Unknown if ever smoked Past Alcohol Use History: None Reported Past Drug Use History: None Reported - Past Family History Father Family Medical History: Coronary Artery Disease (CAD), Myocardial Infarction (MO) Mother Family Medical History: COPD, Coronary Artery Disease (CAD), Deep Vein Thrombosis (DVT) Brother(s) Family Medical History: Coronary Artery Disease (CAD), Myocardial Infarction (MO) Sister(s) Family Medical History: Cancer Additional Family Medical History / Comment(s): Uterine Medications and Allergies Home Medications Medication Instructions Recorded Confirmed Type Levothyroxine Sodium [Synthroid] 100 mcg PO [id number] 09/10/16 09/12/21 History Metoprolol Succinate [Toprol XL] 100 mg PO DAILY 09/10/16 09/12/21 History Isosorbide Mononitrate ER [Imdur] 60 mg PO DAILY 09/28/19 09/12/21 History Melatonin 5 mg PO HS PRN 09/28/19 09/12/21 History rOPINIRole HCL [Requip] 0.25 mg PO HS 09/28/19 09/12/21 History Apixaban [Eliquis] 2.5 mg PO BID 02/16/21 09/12/21 History Cinacalcet [Sensipar] 30 mg PO MOFR@0700 02/16/21 09/12/21 History Ergocalciferol (Vitamin D2) 1,250 mcg PO Q30D 02/16/21 09/12/21 History [Drisdol (50,000 Iu)] Loperamide [Imodium] 2 mg PO TID PRN 02/16/21 09/12/21 History Atorvastatin Calcium [Lipitor] 20 mg PO DAILY 03/02/21 09/12/21 History Albuterol Inhaler [Ventolin Hfa 2 puff INHALATION RT-QID #8 gm 08/20/21 09/12/21 Rx Inhaler] Cyanocobalamin [Vitamin B-12] 1,000 mcg PO DAILY #30 tab 08/20/21 09/12/21 Rx Furosemide [Lasix] 40 mg PO DAILY #30 tab 08/20/21 09/12/21 Rx Spironolactone [Aldactone] 25 mg PO DAILY #30 tab 08/20/21 09/12/21 Rx amLODIPine [Norvasc] 10 mg PO DAILY #60 tab 08/20/21 09/12/21 Rx lisinopriL [Zestril] 10 mg PO DAILY #30 tab 08/20/21 09/12/21 Rx Amitriptyline HCl [Elavil] 10 mg PO HS 09/12/21 09/12/21 History Aspirin EC [Ecotrin Low Dose] 81 mg PO DAILY 09/12/21 09/12/21 History Triamcinolone 0.1% Cream [Kenalog 1 applic TOPICAL BID 09/12/21 09/12/21 History 0.1% Cream] Allergies Allergy/AdvReac Type Severity Reaction Status Date / Time black pepper Allergy Severe Anaphylaxis Verified 09/12/21 14:15 Influenza Virus Vaccines Allergy Severe Unknown Verified 09/12/21 14:15 peanut Allergy Severe Anaphylaxis Verified 09/12/21 14:15 prednisone Allergy Severe Dyspnea Verified 09/12/21 14:15 atropine [From ] Allergy Unknown Verified 09/12/21 14:15 chocolate flavor Allergy Itching Verified 09/12/21 14:15 hyoscyamine [From ] Allergy Unknown Verified 09/12/21 14:15 Iodinated Contrast Media Allergy Swelling Verified 09/12/21 14:15 [Iodinated Contrast Media - IV Dye] phenobarbital [From ] Allergy Unknown Verified 09/12/21 14:15 propoxyphene [From Darvon] Allergy Unknown Verified 09/12/21 14:15 scopolamine [From ] Allergy Unknown Verified 09/12/21 14:15 Sulfa (Sulfonamide Allergy Rash/Hives Verified 09/12/21 14:15 Antibiotics) venom-honey bee Allergy Unknown Verified 09/12/21 14:15 [bee venom (honey bee)] acetaminophen [From [place]] AdvReac Hallucinati Verified 09/12/21 14:15 ons belladonna alkaloids AdvReac Unknown Verified 09/12/21 14:15 hydrocodone [From [place]] AdvReac Hallucinati Verified 09/12/21 14:15 ons simvastatin [From Zocor] AdvReac WEAKNESS Verified 09/12/21 14:15 SMELT Allergy Itching Uncoded 09/12/21 14:15 Surgical - Exam Vital Signs Temp Pulse Resp BP Pulse Ox 98.2 F 81 20 123/43 99 09/12/21 12:15 09/12/21 12:15 09/12/21 12:15 09/12/21 12:15 09/12/21 12:15 General appearance: The patient is alert, oriented, appears in no acute distress. HET: Head is normocephalic and atraumatic. Pupils are equal and reactive. Oropharynx is clear without lesions. Neck: Supple without lymphadenopathy. Trachea midline. Heart: S1 S2. Regular rate and rhythm. Lungs: Clear to auscultation. Abdomen: Soft, nontender, nondistended with bowel sounds. Extremities: Right lower extremity edema with redness. Rash to the dorsal aspect of the right foot with ischemic changes to the tips of her toes on her right foot, greatest on the fourth and fifth toe. Left lower extremity without any redness, rash to the dorsal aspect of the foot and toes with ischemic changes to the toes as well as the left heel. Palpable bilateral femoral and DP pulses. Warm to touch with good capillary refill. Neurological: No focal deficits. Strength and sensation are grossly intact. Results - Labs 09/15/21 06:55 09/15/21 06:55 Abnormal Lab Results - Last 24 Hours (Table) 09/13/21 09/15/21 09/15/21 Range/Units 06:31 06:55 06:55 WBC 1.5 L (3.8-10.6) k/uL RBC 2.87 L (3.80-5.40) m/uL Hgb 9.9 L (11.4-16.0) gm/dL Hct 30.4 L (34.0-46.0) % MCV 105.9 H (80.0-100.0) fL RDW 16.4 H (11.5-15.5) % Plt Count 30 L (150-450) k/uL Blast Cells % 8 H* % Blast Cells # (Man) 0.12 H (0) k/uL Macrocytosis Marked A Lupus Anticoag aPTT 47 H (<43) Sec(s) Dil Felice Viper Venom 60 H (<44) Sec(s) Sodium (135-145) mmol/L BUN (9.0-27.0) mg/dL Est GFR (CKD-EPI)AfAm (60.0-200.0) Est GFR (CKD-EPI)NonAf (60.0-200.0) BUN/Creatinine Ratio (12.00-20.00) Ratio Total Bilirubin (0.30-1.20) mg/dL Albumin (3.8-4.9) g/dL Albumin/Globulin Ratio (1.60-3.17) g/dL Procalcitonin 0.10 H (0.02-0.09) ng/mL 09/15/21 Range/Units 06:55 WBC (3.8-10.6) k/uL RBC (3.80-5.40) m/uL Hgb (11.4-16.0) gm/dL Hct (34.0-46.0) % MCV (80.0-100.0) fL RDW (11.5-15.5) % Plt Count (150-450) k/uL Blast Cells % % Blast Cells # (Man) (0) k/uL Macrocytosis Lupus Anticoag aPTT (<43) Sec(s) Dil Felice Viper Venom (<44) Sec(s) Sodium 134 L (135-145) mmol/L BUN 57.2 H (9.0-27.0) mg/dL Est GFR (CKD-EPI)AfAm 37.7 L (60.0-200.0) Est GFR (CKD-EPI)NonAf 32.5 L (60.0-200.0) BUN/Creatinine Ratio 39.45 H (12.00-20.00) Ratio Total Bilirubin 0.20 L (0.30-1.20) mg/dL Albumin 3.5 L (3.8-4.9) g/dL Albumin/Globulin Ratio 1.24 L (1.60-3.17) g/dL Procalcitonin (0.02-0.09) ng/mL Microbiology - Last 24 Hours (Table) 09/12/21 20:40 Blood Culture - Preliminary Blood No Growth after 48 hours 09/12/21 14:40 Urine Culture - Final Urine,Voided Klebsiella pneumoniae Escherichia coli 09/12/21 16:56 Blood Culture Gram Stain - Preliminary Blood Blood Culture - Preliminary Escherichia coli Streptococcus species Diabetes panel 09/15/21 Range/Units 06:55 Sodium 134 L (135-145) mmol/L Potassium 5.4 (3.5-5.5) mmol/L Chloride 101 (96-109) mmol/L Carbon Dioxide 22.0 (20.0-27.5) mmol/L BUN 57.2 H (9.0-27.0) mg/dL Creatinine 1.5 (0.6-1.5) mg/dL Glucose 82 (70-110) mg/dL Calcium 9.8 (8.7-10.3) mg/dL AST 15 (13-35) U/L ALT 10 (8-44) U/L Alkaline Phosphatase 64 (41-126) U/L Total Protein 6.4 (6.2-8.2) g/dL Albumin 3.5 L (3.8-4.9) g/dL Calcium panel 09/15/21 Range/Units 06:55 Calcium 9.8 (8.7-10.3) mg/dL Albumin 3.5 L (3.8-4.9) g/dL Pituitary panel 09/15/21 Range/Units 06:55 Sodium 134 L (135-145) mmol/L Potassium 5.4 (3.5-5.5) mmol/L Chloride 101 (96-109) mmol/L Carbon Dioxide 22.0 (20.0-27.5) mmol/L BUN 57.2 H (9.0-27.0) mg/dL Creatinine 1.5 (0.6-1.5) mg/dL Glucose 82 (70-110) mg/dL Calcium 9.8 (8.7-10.3) mg/dL Adrenal panel 09/15/21 Range/Units 06:55 Sodium 134 L (135-145) mmol/L Potassium 5.4 (3.5-5.5) mmol/L Chloride 101 (96-109) mmol/L Carbon Dioxide 22.0 (20.0-27.5) mmol/L BUN 57.2 H (9.0-27.0) mg/dL Creatinine 1.5 (0.6-1.5) mg/dL Glucose 82 (70-110) mg/dL Calcium 9.8 (8.7-10.3) mg/dL Total Bilirubin 0.20 L (0.30-1.20) mg/dL AST 15 (13-35) U/L ALT 10 (8-44) U/L Alkaline Phosphatase 64 (41-126) U/L Total Protein 6.4 (6.2-8.2) g/dL Albumin 3.5 L (3.8-4.9) g/dL - Imaging CT scan - abdomen: report reviewed Assessment and Plan Assessment: 1. 3.6 cm aneurysm of the lower thoracic aorta 2. History of thoracic aortic aneurysm with stenting 3. Ischemic changes to bilateral toes possible vasculitis 4. E. coli bacteremia 5. UTI 6. Pancytopenia 7. Myelodysplastic syndrome 8. Coronary artery disease 9. Valvular heart disease 10. History of CVA 11. Atrial fibrillation on Eliquis currently on hold Plan: 1. Continue symptomatic supportive care 2. Continue IV antibiotics per recommendation from infectious disease 3. Lower extremity arterial Doppler study ordered 4. Mediboots to bilateral lower extremities 5. No plans for any vascular surgical intervention regarding lower thoracic aortic aneurysm, patient follows with out of [facility]. Recommend follow-up as planned. Patient also states she has no intention of any further surgical procedures. Thank you for this consultation and allowing us take part in the plan of care of your patient during her hospital stay. The impression and plan of care has been dictated as directed. Dr. Newton I performed a history and examination of this patient, discussed the same with the dictator. I agree with the dictator's note ,documented as a scribe. Any additional findings or plans will be noted.
[2021-09-15 14:41] LABS: C-ANCA <1:20 Titer (<1:20)
[2021-09-15 20:31] LABS: Cardiolipin Ab IgG Interp NEGATIVE (NEGATIVE); Cardiolipin IgA Antibody 14.3 U/mL
[2021-09-15 20:32] LABS: Cardiolipin Ab IgM Interp NEGATIVE (NEGATIVE); Cardiolipin IgM Antibody <1.5 U/mL
[2021-09-15] MEDS: AMITRIPTYLINE HCL 10 MG TAB PO SCH (21:00)
--- NOTE | 2021-09-15 21:34 | P.PN ---
Subjective This is a pleasant 86 years old female with multiple medical problems was presented to the emergency room because of right leg redness, also she was found to have leukopenia/neutropenia and thrombocytopenia, she has history of bilateral feet changes since 07/2021 and hematology/oncology team recommended cardiology evaluation to rule out right leg ischemia. Patient also has evidence of acute kidney injury on top of her chronic kidney disease stage III at least since 2018. She has history of DVT per hematology oncology team but no anticoagulation, especially she has thrombocytopenia Today her CULTURE came back positive with E. coli and Streptococcus and she has 2 urine analysis samples one of them is suspicious for infection and culture is growing gram-negative bacilli while echocardiogram showing ejection fraction of 40-45%. Patient that that she is fully awake and oriented, looks comfortable in bed but she was complaining of from her right leg which is red and warm and swollen and tender to touch. She denies chest pain, dyspnea or coughing. No abdominal pain. 09/14/2021 Patient is awake and alert, no distress. Hemodynamically stable, blood pressure was low normal, her Norvasc was put on hold and the muscle and 50 mL was started today. No abdominal pain or chest pain. She has right leg still swollen, tender and warm, She has positive blood culture for E. coli and Streptococcus, final result is pending. Repeat blood cultures pending as well. Also she has positive urine culture for sensitive E. coli and Klebsiella. Christal ent was vague about her urinary symptoms. She is currently covered with ceftriaxone 2 g daily and abdominal computed tomography scan with oral contrast was unremarkable. Eliquis is on hold. Levothyroxine dose was lowered 100 g down to 88 g. 09/15/2021 Patient right lower extremity redness and swelling and tenderness improved significantly but not completely resolved. Other than that patient does not have any other specific symptoms. She is hemodynamically stable. She still have significant leukopenia and thrombocytopenia at 1.5 and 30 K respectively. Creatinine actually improving at 1.5 however we will keep the patient on normal saline 50 mL/h, ceftriaxone 2 g daily. Right leg ultrasound is negative for DVT. Eliquis and Norvasc remain on hold. Vascular surgery evaluated the patient for her thoracic aneurysm and recommended follow-up with her vascular surgeon at [facility] as scheduled PT/OT recommended subacute rehab Objective - Vital Signs Vital signs: Vital Signs Temp 98.0 F 09/15/21 11:35 Pulse 83 09/15/21 11:35 Resp 16 09/15/21 11:35 BP 112/62 09/15/21 11:35 Pulse Ox 97 09/15/21 11:35 Intake & Output 09/14/21 09/15/21 09/15/21 18:59 06:59 18:59 Intake Total 600 Output Total 1 Balance 599 Weight 71.713 kg Intake: Intake, IV Titration 600 Amount Sodium Chloride 0.9% 1, 600 000 ml @ 50 mls/hr IV . Q20H [facility] Rx#:[id number] Output: Urine 1 Other: Voiding Method Bedside Commode Toilet Toilet # Voids 2 # Bowel Movements 1 - Exam GENERAL: The patient is alert and oriented x3, not in any acute distress. Well developed, well nourished. HEENT: Pupils are round and equally reacting to light. EOMI. No scleral icterus. No conjunctival pallor. Normocephalic, atraumatic. No pharyngeal erythema. No thyromegaly. CARDIOVASCULAR: S1 and S2 present. No murmurs, rubs, or gallops. PULMONARY: Chest is clear to auscultation, no wheezing or crackles. ABDOMEN: Soft, nontender, nondistended, normoactive bowel sounds. No palpable organomegaly. MUSCULOSKELETAL: No joint swelling or deformity. -EXTREMITIES: No cyanosis, clubbing, or pedal edema. Right leg is swollen, warm and tender NEUROLOGICAL: Gross neurological examination did not reveal any focal deficits. SKIN: No rashes. no petechiae. - Labs CBC & Chem 7: 09/15/21 06:55 09/15/21 06:55 Labs: Abnormal Lab Results - Last 24 Hours (Table) 09/15/21 09/15/21 09/15/21 Range/Units 06:55 06:55 06:55 WBC 1.5 L (3.8-10.6) k/uL RBC 2.87 L (3.80-5.40) m/uL Hgb 9.9 L (11.4-16.0) gm/dL Hct 30.4 L (34.0-46.0) % MCV 105.9 H (80.0-100.0) fL RDW 16.4 H (11.5-15.5) % Plt Count 30 L (150-450) k/uL Blast Cells % 8 H* % Blast Cells # (Man) 0.12 H (0) k/uL Macrocytosis Marked A Sodium 134 L (135-145) mmol/L BUN 57.2 H (9.0-27.0) mg/dL Est GFR (CKD-EPI)AfAm 37.7 L (60.0-200.0) Est GFR (CKD-EPI)NonAf 32.5 L (60.0-200.0) BUN/Creatinine Ratio 39.45 H (12.00-20.00) Ratio Total Bilirubin 0.20 L (0.30-1.20) mg/dL Albumin 3.5 L (3.8-4.9) g/dL Albumin/Globulin Ratio 1.24 L (1.60-3.17) g/dL Procalcitonin 0.10 H (0.02-0.09) ng/mL Microbiology - Last 24 Hours (Table) 09/12/21 20:40 Blood Culture - Preliminary Blood No Growth after 48 hours 09/12/21 14:40 Urine Culture - Final Urine,Voided Klebsiella pneumoniae Escherichia coli 09/12/21 16:56 Blood Culture Gram Stain - Preliminary Blood Blood Culture - Preliminary Escherichia coli Streptococcus species Assessment and Plan Assessment: Right leg swelling and tenderness, possible cellulitis, rule out right leg ischemia Bacteremia with E. coli and Streptococcus species Possible acute urinary tract infection secondary to gram-negative bacilli Leukopenia and thrombocytopenia Acute kidney injury on top of chronic kidney disease, stage III History of DVT Hypothyroidism Cardiomyopathy with ejection fraction of 40-45% History of thoracic aortic aneurysm stent, With focal fusiform aneurysmal dilatation around 7.6 cm seen on a previous x-ray Plan: This is a pleasant 86 years old female who presents with right flank swelling and tenderness, possible cellulitis, rule out ischemia, also bacteremia, JOSHUA, low WBC and platelet counts Continue with antibiotics and infectious disease consult Cardiology and hematology team consults Monitor WBCs and platelet count Labs and medication were reviewed.. Continue same treatment. Continue with symptomatic treatment. Resume home medication. Monitor lytes and vitals. DVT and GI prophylaxis. Further recommendations as per clinical course of the patient DVT prophylaxis: no heparin for severe thrombocytopenia GI Prophylaxis: Pepcid PT/OT: Pending Prognosis is guarded
[2021-09-16] MEDS: SODIUM CHLORIDE 0.9% 1,000 ML IV SCH (06:03)
[2021-09-16] MEDS: LEVOTHYROXINE 88 MCG TAB PO SCH (06:17)
[2021-09-16] MEDS: ALBUTEROL NEBULIZED 2.5 MG/3 ML INHALATION SCH ×3 (08:27→16:28)
[2021-09-16] MEDS: ISOSORBIDE MONONITRATE ER 60 MG TAB.ER.24H PO SCH (08:49)
[2021-09-16] MEDS: SPIRONOLACTONE 25 MG TAB PO SCH (08:49)
[2021-09-16] MEDS: CYANOCOBALAMIN 500 MCG TAB PO SCH (08:49)
[2021-09-16] MEDS: FAMOTIDINE 20 MG/2 ML VIAL IV SCH (08:49)
[2021-09-16] MEDS: ATORVASTATIN 20 MG TAB PO SCH (08:49)
[2021-09-16] MEDS: lisinopriL 10 MG TAB PO SCH (08:49)
[2021-09-16] MEDS: METOPROLOL SUCCINATE (ER) 100 MG TAB.ER.24H PO SCH (08:49)
--- NOTE | 2021-09-16 09:17 | PN ---
PROGRESS NOTE DATE OF SERVICE: 09/15/2021 bacteremia, . The patient is afebrile. The patient is breathing comfortably. No chest pain. No shortness of breath. On examination . General description is an elderly female S1-S2. Right leg DIAGNOSTIC IMPRESSION AND PLAN: Patient with source MMODL / IJN: [id number] /
[2021-09-16 11:40] VITALS: BP 124/58; RESP 16; TEMP 97.9
[2021-09-16 11:55] VITALS: PULSE 62
--- NOTE | 2021-09-16 12:02 | P.PN ---
Subjective Progress Note Date: 09/16/21 Principal diagnosis: Pancytopenia, MDS In f/u today feet and lower legs cont to be sore, some new bruising on the left lateral foot, feet are warm to touch now, including toes. Denies bleeding, fever. Objective - Vital Signs Vital signs: Vital Signs Temp 97.9 F 09/16/21 11:16 Pulse 63 09/16/21 11:16 Resp 16 09/16/21 11:16 BP 124/58 09/16/21 11:16 Pulse Ox 100 09/16/21 11:16 Intake & Output 09/15/21 09/16/21 09/16/21 18:59 06:59 18:59 Intake Total 650 Balance 650 Weight 72.212 kg Intake: Intake, IV Titration 650 Amount Sodium Chloride 0.9% 1, 600 000 ml @ 50 mls/hr IV . Q20H [facility] Rx#:[id number] cefTRIAXone 2 gm In 50 Sodium Chloride 0.9% 50 ml @ 100 mls/hr IVPB Q24H [facility] Rx#:[id number] Other: Voiding Method Toilet Toilet Toilet # Voids 5 - Constitutional General appearance: Present: average body habitus, cooperative, no acute distress - EENT Eyes: Present: anicteric sclerae, EOMI ENT: Present: hearing grossly normal - Integumentary Integumentary Comment(s): BLE petechiae, left lateral foot ecchymosis, non-blanching, non-palpable purpura on lower legs and feet. Distal toes are reddened, warm to touch, slightly blan chable - Neurologic Neurologic: Present: CNII-XII intact - Musculoskeletal Musculoskeletal: Present: generalized weakness - Psychiatric Psychiatric: Present: A&O x's 3, appropriate affect, intact judgment & insight - Labs CBC & Chem 7: 09/15/21 06:55 09/15/21 06:55 Labs: Abnormal Lab Results - Last 24 Hours (Table) 09/13/21 Range/Units 06:31 Lupus Anticoag aPTT 47 H (<43) Sec(s) Dil Felice Viper Venom 60 H (<44) Sec(s) Microbiology - Last 24 Hours (Table) 09/12/21 20:40 Blood Culture - Preliminary Blood No Growth after 72 hours 09/12/21 16:56 Blood Culture Gram Stain - Final Blood Blood Culture - Final Escherichia coli Streptococcus species Coagulase Negative Staph - Imaging and Cardiology Venous US: report reviewed Assessment and Plan (1) Ischemia of both lower extremities Narrative/Plan: Cardiology has seen pt. Pt extremities are warm to touch now Current Visit: Yes Status: Acute Priority: High Code(s): I99.8 - OTHER DISORDER OF CIRCULATORY SYSTEM SNOMED Code(s): 142293792 (2) Myelodysplastic syndrome Narrative/Plan: Hx of, no treatment for the same. Low CBC exacerbated by acute infection. Blasts in peripheral blood not unusual with MDS and immune system responding to acute infection. Recommend weekly CBC until stable Current Visit: Yes Status: Chronic Priority: Medium Code(s): D46.9 - MYELODYSPLASTIC SYNDROME, UNSPECIFIED SNOMED Code(s): 409067281 (3) Pancytopenia Narrative/Plan: Baseline low counts 2/2 to MDS, exacerbated by acute illness, infection. Cont to monitor CBC. Transfuse for Hgb <7, or plt < 10,000 unless symptomatic. Monitor closely for any s/s/ bleeding. No anticoagulation for plt <50,000. Resume pt eliquis once plts are >50,000 Current Visit: Yes Status: Acute Priority: High Code(s): D61.818 - OTHER PANCYTOPENIA SNOMED Code(s): 459815506 (4) Pulmonary embolism Narrative/Plan: Holding eliquis 2/2 plt < 50K Current Visit: No Status: Chronic Priority: Medium Code(s): I26.99 - OTHER PULMONARY EMBOLISM WITHOUT ACUTE COR PULMONALE SNOMED Code(s): 54751059 (5) History of DVT (deep vein thrombosis) Narrative/Plan: Holding eliquis 2/2 plt<50K Current Visit: No Status: Chronic Priority: Medium Code(s): Z86.718 - PERSONAL HISTORY OF OTHER VENOUS THROMBOSIS AND EMBOLISM SNOMED Code(s): 197909432 Plan: Pt lower extremity symptoms seem to be slowly improving with treatment of infection and holding of anticoagulation because of low plt counts. Some of pt presenting symptoms may have been a result of oozing of blood from the distal capillary beds since she was on anticoagulation with low plt at presentation. HIT ab still pending. P/C ANCA negative, less likely vasculitis.
[2021-09-16 12:25] LABS: African American GFR (CKD) 48 (>60 ml/min/1.73 sqM); Anion Gap 8 mmol/L; Blood Urea Nitrogen 48 mg/dL (7-17); Calcium 9.7 mg/dL (8.4-10.2); Carbon Dioxide 20 mmol/L (22-30); Chloride 109 mmol/L (98-107); Glucose 95 mg/dL (74-99); Non-African American GFR(CKD) 42 (>60 ml/min/1.73 sqM); Potassium 5.3 mmol/L (3.5-5.1); Sodium 137 mmol/L (137-145)
--- NOTE | 2021-09-16 13:51 | P.PN ---
Subjective Progress Note Date: 09/16/21 HISTORY OF PRESENT ILLNESS: The patient is an 86-year-old female patient with extensive cardiovascular history consistent of history of stroke in 2019, non-ischemic cardiomyopathy, valvular heart disease with mitral and tricuspid regurgitation and also permanent atrial fibrillation on oral anticoagulation with Eliquis, hypertension and dyslipidemia. We have been asked to see the patient regarding ischemia. Patient states that she has difficulty with walking with history of blood clots and thought she had a blood clot now. She states she has been on eliquis for the past 1 year and admits to recent hospitalization a month ago for heart failure. 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 She had a recent fall in the bathroom causing bruising to the left jaw but she denies frequent falls. She complains of shortness of breath with ex ertion. She also complains of a rash which is new to her toes dorsal feet and fingers, complains of numbness to her toes and itching at nighttime. EKG is atrial fibrillation with left bundle branch block Ultrasound of the lower extremity rash groin revealed no pseudoaneurysm or aneurysm or hematoma. Renal ultrasound reveals renal cortical atrophy. Bilateral renal cortical cysts. No evidence of solid renal mass or obstruction. No evidence of bladder mass. VQ scan low probability for pulmonary embolism. Echocardiogram reveals EF 40-45%, moderate concentric left ventricular hypertrophy, mild mitral regurgitation, mild tricuspid regurgitation, trace aortic regurgitation Laboratory studies: WBC 1.5, hemoglobin 10.4, platelet count 34. Electrolytes normal. BUN 69 creatinine 1.77. Liver function tests normal. TSH 0.097, free T4 2 0.33, parathyroid hormone intact 96.8. Urinalysis negative for infection. Dykes virus PCR not detected. Blood culture positive for gram-negative cocci/ bacilli. Home cardiac medications: Amlodipine 10 mg daily, eliquis 2.5 mg twice daily, aspirin 81 mg daily, eliquis 2.5 mg twice daily, atorvastatin 20 mg daily, Lasix 40 mg daily, Imdur 60 mg daily, lisinopril 10 mg daily, Toprol-XL 100 mg daily, Aldactone 25 mg daily Previous echocardiogram from 2020 revealed impaired LV function was EF between 35-40% with moderate to severe mitral and tricuspid regurgitation and mild pulmonary 09/14 Patient complains of feeling weak and tired unable to even walk to the bathroom as well as short of breath. She denies any chest pain or chest pressure. She s tates she is eating okay and nurse states she ate 50% of her breakfast. ID and oncology on consult and patient is scheduled for a CAT scan of the abdomen and pelvis to determine cause of gram-negative bacteremia. 09/15/2021 Patient examined this morning at the bedside. She denies chest pain or pressure. She denies shortness of breath. Echocardiogram completed revealing ejection fraction 40-45%, septal hypokinesis, trace aortic regurgitation, mild mitral regurgitation, and mild tricuspid regurgitation. Right lower extremity Doppler negative for DVT. 09/16/2021 Patient examined this morning at the bedside. Patient denies chest pain or pressure. She denies shortness of breath. Vital signs are stable. Her anticoagulation remains on hold. PHYSICAL EXAM: VITAL SIGNS: Reviewed. GENERAL: Well-developed in no acute distress. NECK: Supple. No JVD or thyromegaly LUNGS: Respirations even and unlabored. Lungs essentially clear to auscultation bilaterally. HEART: Irregular rate and rhythm. S1 and S2 heard. Systolic murmur noted. EXTREMITIES: Normal range of motion. Peripheral pulses intact. No lower extremity edema. Petechial rash to feet bilaterally. ASSESSMENT: Bacteremia MDS Thrombocytopenia Severe neutropenia History of DVT History of CVA in 2019 Nonischemic cardiomyopathy Valvular heart disease with mitral and tricuspid regurgitation Permanent atrial fibrillation Hypertension Hyperlipidemia Hypothyroidism PLAN: Continue to hold Eliquis. Hematology following. No further inpatient recommendations from a cardiac standpoint We will sign off. Please reconsult if needed Nurse practitioner note has been reviewed by physician. Signing provider agrees with the documented findings, assessment, and plan of care. Objective - Vital Signs Vital signs: Vital Signs Temp 97.9 F 09/16/21 11:16 Pulse 62 09/16/21 12:03 Resp 16 09/16/21 11:16 BP 124/58 09/16/21 11:16 Pulse Ox 100 09/16/21 11:16 Intake & Output 09/15/21 09/16/21 09/16/21 18:59 06:59 18:59 Intake Total 650 Balance 650 Weight 72.212 kg Intake: Intake, IV Titration 650 Amount Sodium Chloride 0.9% 1, 600 000 ml @ 50 mls/hr IV . Q20H [facility] Rx#:[id number] cefTRIAXone 2 gm In 50 Sodium Chloride 0.9% 50 ml @ 100 mls/hr IVPB Q24H [facility] Rx#:[id number] Other: Voiding Method Toilet Toilet Toilet # Voids 5 - Labs CBC & Chem 7: 09/15/21 06:55 09/16/21 11:32 Labs: Abnormal Lab Results - Last 24 Hours (Table) 09/16/21 Range/Units 11:32 Potassium 5.3 H (3.5-5.1) mmol/L Chloride 109 H (98-107) mmol/L Carbon Dioxide 20 L (22-30) mmol/L BUN 48 H (7-17) mg/dL Creatinine 1.18 H (0.52-1.04) mg/dL C-Reactive Protein 2.0 H (<1.0) mg/dL Microbiology - Last 24 Hours (Table) 09/12/21 20:40 Blood Culture - Preliminary Blood No Growth after 72 hours 09/12/21 16:56 Blood Culture Gram Stain - Final Blood Blood Culture - Final Escherichia coli Streptococcus species Coagulase Negative Staph
--- NOTE | 2021-09-16 14:16 | CDI ---
Documentation Clarification Form Date: 09/16/2021 01:51:46 PM From: Daisy Mahan RN, CCDS Admit Date: 09/12/2021 02:18:00 PM Patient Name: aDisy Aragon Visit Number: [id number] Discharge Date: ATTENTION: The Clinical Documentation Specialists (CDI) and [facility] Coding Staff appreciate your assistance in clarifying documentation. Please respond to the clarification below the line at the bottom and electronically sign. The CDI & [facility] Coding staff will review the response and follow-up if needed. Please note: Queries are made part of the Legal Health Record. If you have any questions, please contact the author of this message via ITS. Dr. Morrell E Sheet The patient presented with the following clinical indicators. Additional clarification regarding the etiology/cause of the clinical indicators is requested. 09/14 progress note: (Dr. Lim): I suspect her worsening cytopenias are due to underlying sepsis. 09/13 ID Consult: Patient presented to hospital with weakness fall shortness of breath and did have right leg swelling and redness and now with evidence of streptococcal bacteremia with could be explained on the basis of the right leg cellulitis however the patient did have E. coli bacteremia which usually often GI or urinary source. Will need to rule out intra-abdominal source History/Risk Factors: DVT, Atrial Fibrillation, Heart Failure, Hypertension, MDS (Myelodysplastic syndrome) Clinical Indicators: 86-year-old female present right calf pain with redness, swelling (patches of erythema with purpura), Claus's 09/12 Vital sign. 123/43 81 20 99 % RA 09/12 WBC 1.2 BUN 83, Cr 1.84, PLT 41 09/12 Lactic acid: 1.6 09/12 Blood cultures: Escherichia coli, Streptococcus, species, Coagulase Negative Staph 09/12 Urine culture: Klebsiella pneumonia, Escherichia coli Treatment: Rocephin 2 Gm IVPB Q 24 HRS Monitor Labs per orders In your professional opinion, please clarify if these findings signify one of the following conditions: [ ] Sepsis with secondary bacteremia POA [ ] Sepsis, Not POA [ ] Sepsis ruled out [ ] Bacteremia without Sepsis POA [ ] SIRS, without underlying infectious process [ ] Other, please specify [ ] Unable to determine SIRS Criteria: 2 or more of the following may indicate SIRS -Temperature < 96.8F (36C) or > 101.0F (38.3C) -Heart Rate > 90 bpm -Respiratory Rate > 20 breaths/min or PaCO2 < 32 mmHg -White Blood Cell Count > 12,000 or < 4,000 cells/mm3 or > 10% bands (Template Last Reviewed: October 2020) No sepsis MTDD
--- NOTE | 2021-09-16 15:22 | P.PN ---
Subjective Progress Note Date: 09/16/21 A shunt is seen today in follow-up for thoracic aortic aneurysm. She continues to deny any abdominal pain shortness of breath or chest pain. Dr. Newton reviewed CT and dilation is due to previous stenting. Lower extremity arterial study reviewed right JOHN 1.18 left JOHN 1.40. Patient denies any pain in her feet she does have some discomfort with pressure in her left heel. Objective - Vital Signs Vital signs: Vital Signs Temp 97.9 F 09/16/21 11:16 Pulse 62 09/16/21 12:03 Resp 16 09/16/21 11:16 BP 124/58 09/16/21 11:16 Pulse Ox 100 09/16/21 11:16 Intake & Output 09/15/21 09/16/21 09/16/21 18:59 06:59 18:59 Intake Total 650 Balance 650 Weight 72.212 kg Intake: Intake, IV Titration 650 Amount Sodium Chloride 0.9% 1, 600 000 ml @ 50 mls/hr IV . Q20H [facility] Rx#:[id number] cefTRIAXone 2 gm In 50 Sodium Chloride 0.9% 50 ml @ 100 mls/hr IVPB Q24H [facility] Rx#:[id number] Other: Voiding Method Toilet Toilet Toilet # Voids 5 - Exam General appearance: The patient is alert, oriented, in no acute distress. HET: Head is normocephalic and atraumatic. Pupils are equal and reactive. Oropharynx is clear without lesions. Neck: Supple without lymphadenopathy. Trachea midline. Heart: S1 S2. Regular rate and rhythm. Lungs: No crackles or wheezes are heard. Abdomen: Soft, nontender, nondistended. Extremities: Bilateral lower extremities with bruising, rash. Distal tips of toes of a pinkish purple color. Right fourth and fifth toe with improved color. Bilateral extremities warm to the touch with good capillary refill. Neurological: No focal deficits. And oriented 3. - Labs CBC & Chem 7: 09/15/21 06:55 09/16/21 11:32 Labs: Abnormal Lab Results - Last 24 Hours (Table) 09/16/21 Range/Units 11:32 Potassium 5.3 H (3.5-5.1) mmol/L Chloride 109 H (98-107) mmol/L Carbon Dioxide 20 L (22-30) mmol/L BUN 48 H (7-17) mg/dL Creatinine 1.18 H (0.52-1.04) mg/dL C-Reactive Protein 2.0 H (<1.0) mg/dL Microbiology - Last 24 Hours (Table) 09/12/21 20:40 Blood Culture - Preliminary Blood No Growth after 72 hours 09/12/21 16:56 Blood Culture Gram Stain - Final Blood Blood Culture - Final Escherichia coli Streptococcus species Coagulase Negative Staph Assessment and Plan Assessment: 1. 3.6 cm aneurysm of the lower thoracic aorta 2. History of thoracic aortic aneurysm with stenting 3. Ischemic changes to bilateral toes possible vasculitis 4. E. coli bacteremia 5. UTI 6. Pancytopenia 7. Myelodysplastic syndrome 8. Coronary artery disease 9. Valvular heart disease 10. History of CVA 11. Atrial fibrillation on Eliquis currently on hold Plan: 1. Continue symptomatic supportive care 2. Continue IV antibiotics per recommendation from infectious disease 3. Lower extremity arterial Doppler study ordered and reviewed. Some venous insufficiency noted. 4. Mediboots to bilateral lower extremities 5. No plans for any vascular surgical intervention regarding lower thoracic aortic aneurysm, patient follows with out of [facility]. Recommend follow-up as planned. Patient also states she has no intention of any further surgical procedures. 6. There is no indication for any vascular surgical intervention at this time. Patient may follow-up as an outpatient as needed. Thank you for this consultation we will sign off at this time. The impression and plan of care has been dictated as directed. Dr. Newton I performed a history and examination of this patient, discussed the same with the dictator. I agree with the dictator's note ,documented as a scribe. Any additional findings or plans will be noted.
[2021-09-16] MEDS ORDERED: hydrALAZINE HCL 10 MG TAB PO SCH (15:30)
--- NOTE | 2021-09-16 22:36 | P.DS ---
Providers Date of admission: 09/12/21 14:18 Attending physician: Mina Porras MD Consults: 09/12/21 14:31 Consult Physician Routine Consulting Provider: Armando Maddox Consult Reason/Comments: Neutropenia Do you want consulting provider notified?: Yes 09/12/21 15:31 Consult Physician Stat Consulting Provider: Guanaco Baker Consult Reason/Comments: ischemia Do you want consulting provider notified?: Yes 09/13/21 14:37 Consult Physician Urgent Consulting Provider: Tayler Waldron Consult Reason/Comments: Right leg cellulitis and bacteremia Do you want consulting provider notified?: Yes 09/15/21 12:57 Consult Physician Routine Consulting Provider: Salima Joshi Consult Reason/Comments: aortic aneurysm s/p stent graft , with fusiform dilitation Do you want consulting provider notified?: Yes Primary care physician: Rahul Peralta [facility] Course: Diagnoses: Right leg swelling and tenderness, secondary to cellulitis, improved with antibiotics Bacteremia with E. coli and Streptococcus species. Improved with antibiotic Possible acute urinary tract infection secondary to gram-negative bacilli. Resolved with antibiotics as well Leukopenia and thrombocytopenia, follow-up as an outpatient Acute kidney injury on top of chronic kidney disease, stage III, Creatinine decreased close to baseline at 1.1 Mild hyperkalemia, Aldactone was discontinued and dose of lisinopril was lowered 10 mg down to 5 mg, follow-up with potassium level outpatient, has appointment with Dr. Kay 09/19 Hypertension History of DVT, anticoagulation is contraindicated secondary to severe thrombocytopenia Hypothyroidism Cardiomyopathy with ejection fraction of 40-45% History of thoracic aortic aneurysm stent, With focal fusiform aneurysmal dilatation around 7.6 cm seen on a previous x-ray Hospital course: This is a pleasant 86 years old female with multiple medical problems was presented to the emergency room because of right leg redness, also she was found to have leukopenia/neutropenia and thrombocytopenia, patient found to have right leg cellulitis and she was treated with ceftriaxone 2 g daily and she has significant response to treatment and her leg swelling and cellulitis significantly improved. As well as her bacteremia and UTI which treated with ceftriaxone and the improved as well. Patient will be discharged on Ceftin for 10 days per recommendation of ID team. Consult customer solutions architect were consulted for possible ischemia of the right leg, no surgical intervention and repair, and outpatient follow-up and cleared her for discharge as well. Also vascular surgery evaluated the patient for thoracic aneurysm and they recommended outpatient follow-up as well. Her creatinine improved back to baseline. Hematology were following the patient closely for her severe thrombocytopenia and leukopenia and they agree with continue holding Eliquis and outpatient follow-up. Her potassium was slightly elevated therefore Aldactone was held and lisinopril dose was lowered with recommendation to check her potassium as an outpatient and she was referred to Dr. De La Rosa where she has appointment on 09/19. Blood pressure medications were adjusted as a., Small dose of hydralazine were added upon discharge after discontinuing Aldactone. I discussed with the patient the need to go for rehab however she was adamant to go home with home care, risks including but not limited to are explained to her extensively including the risk of fall, high risk of bleeding like Farida bleed in view of her severe thrombocytopenia and again she was adamant that to go to rehab like [facility] Patient has capacity to make medical decision. Patient was cleared for discharge by all consultants including hematology oncology, cardiology, vascular surgery and infectious disease team Problems and management plan were discussed with the patient and he verbalized understanding and acceptance Patient was found stable and can be discharged home in guarded prognosis however he needs follow-up as an outpatient. Patient was instructed to follow up with PCP Dr. Solis within one week and patient agrees Agree with the appointments made for him on 09/19 Also was instructed to follow up with Dr. billingsley and she agrees with appointment on 10/31 Patient was instructed to follow up with Dr. Waldron in one week and she agrees. Patient was instructed to follow up with her vascular surgeon at [facility] as a scheduled and she agrees as well Physical exam Gen: patient is a AAOx3, no distress CVS: S1-S2, RRR, no murmur Lungs: B/L CTA, no wheezing Abdomen: soft, no distention, no tenderness, positive bowel sounds -Extremity: no leg edema or induration. Right leg cellulitis significantly improved Time spent more than 35 minutes Patient also has evidence of acute kidney injury on top of her chronic kidney disease stage III at least since 2018. She has history of DVT per hematology oncology team but no anticoagulation, especially she has thrombocytopenia Today her CULTURE came back positive with E. coli and Streptococcus and she has 2 urine analysis samples one of them is suspicious for infection and culture is growing gram-negative bacilli while echocardiogram showing ejection fraction of 40-45%. Patient that that she is fully awake and oriented, looks comfortable in bed but she was complaining of from her right leg which is red and warm and swollen and tender to touch. She denies chest pain, dyspnea or coughing. No abdominal pain. 09/14/2021 Patient is awake and alert, no distress. Hemodynamically stable, blood pressure was low normal, her Norvasc was put on hold and the muscle and 50 mL was started today. No abdominal pain or chest pain. She has right leg still swollen, tender and warm, She has positive blood culture for E. coli and Streptococcus, final result is pending. Repeat blood cultures pending as well. Also she has positive urine culture for sensitive E. coli and Klebsiella. Patient was vague about her urinary symptoms. She is currently covered with ceftriaxone 2 g daily and abdominal computed tomography scan with oral contrast was unremarkable. Eliquis is on hold. Levothyroxine dose was lowered 100 g down to 88 g. 09/15/2021 Patient right lower extremity redness and swelling and tenderness improved significantly but not completely resolved. Other than that patient does not have any other specific symptoms. She is hemodynamically stable. She still have significant leukopenia and thrombocytopenia at 1.5 and 30 K respectively. Creatinine actually improving at 1.5 however we will keep the patient on normal saline 50 mL/h, ceftriaxone 2 g daily. Right leg ultrasound is negative for DVT. Eliquis and Norvasc remain on hold. Vascular surgery evaluated the patient for her thoracic aneurysm and recommended follow-up with her vascular surgeon at [facility] as scheduled PT/OT recommended subacute rehab Plan - Discharge Summary Discharge Rx Participant: Yes New Discharge Prescriptions: New RX: Levothyroxine Sodium [Synthroid] 88 mcg PO DAILY@0630 #30 tab RX: hydrALAZINE HCL [Apresoline] 10 mg PO BID #60 tab Cefuroxime Axetil [Ceftin] 500 mg PO BID 10 Days #20 tab RX: lisinopriL [Zestril] 5 mg PO DAILY #30 tab Continue RX: Metoprolol Succinate [Toprol XL] 100 mg PO DAILY RX: Isosorbide Mononitrate ER [Imdur] 60 mg PO DAILY RX: Melatonin 5 mg PO HS PRN PRN Reason: Insomnia RX: rOPINIRole HCL [Requip] 0.25 mg PO HS RX: Loperamide [Imodium] 2 mg PO TID PRN PRN Reason: Diarrhea RX: Ergocalciferol (Vitamin D2) [Drisdol (50,000 Iu)] 1,250 mcg PO Q30D RX: Atorvastatin Calcium [Lipitor] 20 mg PO DAILY RX: amLODIPine [Norvasc] 10 mg PO DAILY #60 tab RX: Albuterol Inhaler [Ventolin Hfa Inhaler] 2 puff INHALATION RT-QID #8 gm RX: Amitriptyline HCl [Elavil] 10 mg PO HS RX: Cinacalcet [Sensipar] 30 mg PO MOFR@0700 RX: Cyanocobalamin [Vitamin B-12] 1,000 mcg PO DAILY #30 tab RX: Triamcinolone 0.1% Cream [Kenalog 0.1% Cream] 1 applic TOPICAL BID Discontinued RX: Levothyroxine Sodium [Synthroid] 100 mcg PO [id number] RX: Apixaban [Eliquis] 2.5 mg PO BID RX: Spironolactone [Aldactone] 25 mg PO DAILY #30 tab Aspirin EC [Ecotrin Low Dose] 81 mg PO DAILY RX: Furosemide [Lasix] 40 mg PO DAILY #30 tab RX: lisinopriL [Zestril] 10 mg PO DAILY #30 tab Discharge Medication List RX: Metoprolol Succinate [Toprol XL] 100 mg PO DAILY 09/10/16 [History] RX: Isosorbide Mononitrate ER [Imdur] 60 mg PO DAILY 09/28/19 [History] RX: Melatonin 5 mg PO HS PRN 09/28/19 [History] RX: rOPINIRole HCL [Requip] 0.25 mg PO HS 09/28/19 [History] RX: Cinacalcet [Sensipar] 30 mg PO MOFR@0700 02/16/21 [History] RX: Ergocalciferol (Vitamin D2) [Drisdol (50,000 Iu)] 1,250 mcg PO Q30D 02/16/21 [History] RX: Loperamide [Imodium] 2 mg PO TID PRN 02/16/21 [History] RX: Atorvastatin Calcium [Lipitor] 20 mg PO DAILY 03/02/21 [History] RX: Albuterol Inhaler [Ventolin Hfa Inhaler] 2 puff INHALATION RT-QID #8 gm 08/20/21 [Rx] RX: Cyanocobalamin [Vitamin B-12] 1,000 mcg PO DAILY #30 tab 08/20/21 [Rx] RX: amLODIPine [Norvasc] 10 mg PO DAILY #60 tab 08/20/21 [Rx] RX: Amitriptyline HCl [Elavil] 10 mg PO HS 09/12/21 [History] RX: Triamcinolone 0.1% Cream [Kenalog 0.1% Cream] 1 applic TOPICAL BID 09/12/21 [History] Cefuroxime Axetil [Ceftin] 500 mg PO BID 10 Days #20 tab 09/16/21 [Rx] RX: Levothyroxine Sodium [Synthroid] 88 mcg PO DAILY@0630 #30 tab 09/16/21 [Rx] RX: hydrALAZINE HCL [Apresoline] 10 mg PO BID #60 tab 09/16/21 [Rx] RX: lisinopriL [Zestril] 5 mg PO DAILY #30 tab 09/16/21 [Rx] Follow up Appointment(s)/Referral(s): Fabian Kay MD [Primary Care Provider] - 09/19/21 10:10 am (Please check your blood pressure and potassium) Rachel Asif MD [REFERRING] - (Patient and family do not want to follow up with this service they have made the doctor aware and I have cancelled the prevoius appointment that was made.) Pradip Coleman MD [STAFF PHYSICIAN] - 10/31/21 10:00 am Tayler Waldron MD [STAFF PHYSICIAN] - 09/23/21 3:15 pm ( ) [facility] Visiting Nurse, [NON-STAFF] - 1 Week Ambulatory/Diagnostic Orders: Miscellaneous Lab Order [LAB.AMB] Location: None Selected Patient Instructions/Handouts: Cefuroxime (By mouth), Lisinopril (By mouth), Levothyroxine (By mouth), Hydralazine (By mouth), Urinary Tract Infection in Women (DC), Heart Healthy Diet (DC), Sepsis (GEN), Myelodysplastic Syndromes (DC), Neutropenia (DC), Bacteremia (DC), Complications of Infection (GEN), Pancytopenia (DC) Activity/Diet/Wound Care/Special Instructions: heart healthy diet activity is restricted till you see your doctor you are at high risk of falling , please take all necessary precaution also you are high risk for bleeding due to low platelet count your Eliquis and aspirin were held due to low platelet count, please follow up with your primary care doctor , customer solutions architect and life scientists to decide when to resume them back Discharge Disposition: HOME WITH HOME HEALTH SERVICES
[2021-09-17] MEDS ORDERED: lisinopriL 5 MG TAB PO SCH (09:00)
--- NOTE | 2021-09-17 09:17 | P.ARTDOP ---
Arterial Doppler LOWER EXTREMITY ARTERIAL DOPPLER: DATE OF SERVICE: 09/15/2021 Reason for study: Toe discoloration. Doppler waveforms: Multiphasic bilaterally throughout with excellent toe waveforms on the left and somewhat blunted on the right.. Pulse volume recording: []. Pressure gradients: None. Ankle-brachial indices: Greater than 1 bilaterally. Toe brachial indices: 0.68 on the right, 0.92 on the left Impression: Normal study. Suspect vasospastic phenomenon..
[2021-10-06] MEDS ORDERED: ERGOCALCIFEROL 1,250 MCG (50,000 IU) CAPSULE PO SCH (09:00)
== END 2021-09-16 16:47 | disposition home health service (06) | DRG 602 ==
LOC: EC 11:45 → 5NMEDONC 14:18
PROVIDERS: ADMIT Internal Medicine; ATTEND Internal Medicine
DX: L03.115 Cellulitis of right lower limb (principal); N17.0 Acute kidney failure with tubular necrosis; D61.818 Other pancytopenia; E87.1 Hypo-osmolality and hyponatremia; I13.0 Hypertensive heart and chronic kidney disease with heart failure and stage 1 through stage 4 chronic kidney disease, or unspecified chronic kidney disease; I42.8 Other cardiomyopathies; I48.21 Permanent atrial fibrillation; I50.22 Chronic systolic (congestive) heart failure; N39.0 Urinary tract infection, site not specified; B95.5 Unspecified streptococcus as the cause of diseases classified elsewhere; B96.1 Klebsiella pneumoniae [K. pneumoniae] as the cause of diseases classified elsewhere; B96.20 Unspecified Escherichia coli [E. coli] as the cause of diseases classified elsewhere; D46.9 Myelodysplastic syndrome, unspecified; E03.9 Hypothyroidism, unspecified; I08.1 Rheumatic disorders of both mitral and tricuspid valves; I25.2 Old myocardial infarction; Z86.711 Personal history of pulmonary embolism; Z20.822 Contact with and (suspected) exposure to COVID-19; I44.7 Left bundle-branch block, unspecified; I71.2 Thoracic aortic aneurysm, without rupture; I71.4 Abdominal aortic aneurysm, without rupture; N18.30 Chronic kidney disease, stage 3 unspecified; N28.1 Cyst of kidney, acquired; Z95.828 Presence of other vascular implants and grafts; E87.6 Hypokalemia; Z79.82 Long term (current) use of aspirin; E78.5 Hyperlipidemia, unspecified; I25.10 Atherosclerotic heart disease of native coronary artery without angina pectoris; E87.5 Hyperkalemia; Z79.890 Hormone replacement therapy; Z79.899 Other long term (current) drug therapy; Z82.49 Family history of ischemic heart disease and other diseases of the circulatory system; Z82.5 Family history of asthma and other chronic lower respiratory diseases; Z86.718 Personal history of other venous thrombosis and embolism; Z86.72 Personal history of thrombophlebitis; Z86.73 Personal history of transient ischemic attack (TIA), and cerebral infarction without residual deficits; K57.90 Diverticulosis of intestine, part unspecified, without perforation or abscess without bleeding; Z87.01 Personal history of pneumonia (recurrent); Z87.11 Personal history of peptic ulcer disease; Z90.49 Acquired absence of other specified parts of digestive tract; Z90.710 Acquired absence of both cervix and uterus; K44.9 Diaphragmatic hernia without obstruction or gangrene; K58.9 Irritable bowel syndrome, unspecified; M19.90 Unspecified osteoarthritis, unspecified site; H35.30 Unspecified macular degeneration; Z86.19 Personal history of other infectious and parasitic diseases; Z86.010 Personal history of colon polyps; Z91.030 Bee allergy status; Z91.041 Radiographic dye allergy status; Z88.5 Allergy status to narcotic agent; Z91.010 Allergy to peanuts; Z91.013 Allergy to seafood; Z88.2 Allergy status to sulfonamides; Z88.7 Allergy status to serum and vaccine; Z88.8 Allergy status to other drugs, medicaments and biological substances; Z91.018 Allergy to other foods; Z80.49 Family history of malignant neoplasm of other genital organs; Z98.890 Other specified postprocedural states
CPT/HCPCS: 36415; 71046; 74176; 76770; 78582; 80048; 80053; 81001; 81003; 82306; 83010; 83605; 83615; 83735; 83970; 84145; 84439; 84443; 84484; 85025; 85027; 85379; 85384; 85610; 85613; 85652; 85730; 85732; 86022; 86038; 86140; 86146; 86147; 86255; 86431; 87040; 87077; 87086; 87186; 87635; 93005; 93306; 93922; 93925; 93975; 94640; 99285

== ENCOUNTER 2021-09-21 11:25 | Inpatient (IN) | payer MEDICARE, BC ==
[2021-09-21] MEDS ORDERED: SODIUM CHLORIDE 0.9% 500 ML 500 ML IV ONE (11:40)
--- NOTE | 2021-09-21 12:09 | ED ---
Fall HPI - General Chief Complaint: Fall Stated Complaint: fall, head injury, clotting disorder Time Seen by Provider: 09/21/21 11:39 Source: patient, family, RN notes reviewed Mode of arrival: EMS - History of Present Illness Initial Comments: This is a pleasant 86-year-old female with multiple medical issues. Patient presents simmers today after losing her balance when she was walking with her walker. Patient states she struck her head on a chair. Patient did not lose co nsciousness, patient recalls the entire event. Patient denies any significant pain. No vision or hearing disturbances. No chest pain or shortness of breath. No preceding symptomology. No nausea or vomiting. No focal weakness. Patient does state that Tiffanie, felt wobbly before she fell. No other preceding symptoms. Patient was recently admitted the hospital for sepsis and was found to have thrombocytopenia. Patient has myelodysplastic syndrome and was found to be thrombocytopenic and r ecent admission. Patient was discharged here on September 12 after being admitted for cellulitis with bacteremia. MD Complaint: fall - Related Data Home Medications Medication Instructions Recorded Confirmed Metoprolol Succinate [Toprol XL] 100 mg PO DAILY 09/10/16 09/21/21 Isosorbide Mononitrate ER [Imdur] 60 mg PO DAILY 09/28/19 09/21/21 Melatonin 5 mg PO HS PRN 09/28/19 09/21/21 rOPINIRole HCL [Requip] 0.25 mg PO HS 09/28/19 09/21/21 Cinacalcet [Sensipar] 30 mg PO MOFR@0700 02/16/21 09/21/21 Ergocalciferol (Vitamin D2) 1,250 mcg PO Q30D 02/16/21 09/21/21 [Drisdol (50,000 Iu)] Loperamide [Imodium] 2 mg PO TID PRN 02/16/21 09/21/21 Atorvastatin Calcium [Lipitor] 20 mg PO DAILY 03/02/21 09/21/21 Amitriptyline HCl [Elavil] 10 mg PO HS 09/12/21 09/21/21 Triamcinolone 0.1% Cream [Kenalog 1 applic TOPICAL BID 09/12/21 09/21/21 0.1% Cream] Levothyroxine Sodium [Synthroid] 100 mcg PO DAILY 09/21/21 09/21/21 Lisinopril [Prinivil] 10 mg PO DAILY 09/21/21 09/21/21 Sodium Bicarbonate Tab 650 mg PO DAILY 09/21/21 09/21/21 hydrALAZINE HCL [Apresoline] 10 mg PO DIRECTED 09/21/21 09/21/21 Previous Rx's Medication Instructions Recorded Albuterol Inhaler [Ventolin Hfa 2 puff INHALATION RT-QID #8 gm 08/20/21 Inhaler] Cyanocobalamin [Vitamin B-12] 1,000 mcg PO DAILY #30 tab 08/20/21 amLODIPine [Norvasc] 10 mg PO DAILY #60 tab 08/20/21 Cefuroxime Axetil [Ceftin] 500 mg PO BID 10 Days #20 tab 09/16/21 Allergies Allergy/AdvReac Type Severity Reaction Status Date / Time black pepper Allergy Severe Anaphylaxis Verified 09/21/21 14:20 Influenza Virus Vaccines Allergy Severe Unknown Verified 09/21/21 14:20 peanut Allergy Severe Anaphylaxis Verified 09/21/21 14:20 prednisone Allergy Severe Dyspnea Verified 09/21/21 14:20 atropine [From ] Allergy Unknown Verified 09/21/21 14:20 chocolate flavor Allergy Itching Verified 09/21/21 14:20 hyoscyamine [From ] Allergy Unknown Verified 09/21/21 14:20 Iodinated Contrast Media Allergy Swelling Verified 09/21/21 14:20 [Iodinated Contrast Media - IV Dye] phenobarbital [From ] Allergy Unknown Verified 09/21/21 14:20 propoxyphene [From [place]] Allergy Unknown Verified 09/21/21 14:20 scopolamine [From ] Allergy Unknown Verified 09/21/21 14:20 Sulfa (Sulfonamide Allergy Rash/Hives Verified 09/21/21 14:20 Antibiotics) venom-honey bee Allergy Unknown Verified 09/21/21 14:20 [bee venom (honey bee)] acetaminophen [From [place]] AdvReac Hallucinati Verified 09/21/21 14:20 ons belladonna alkaloids AdvReac Unknown Verified 09/21/21 14:20 hydrocodone [From [place]] AdvReac Hallucinati Verified 09/21/21 14:20 ons simvastatin [From Zocor] AdvReac WEAKNESS Verified 09/21/21 14:20 SMELT Allergy Itching Uncoded 09/21/21 11:34 Review of Systems ROS Statement: Those systems with pertinent positive or pertinent negative responses have been documented in the HPI. ROS Other: All systems not noted in ROS Statement are negative. Past Medical History Past Medical History: Atrial Fibrillation, Blood Disorder, Coronary Artery Disease (CAD), Chest Pain / Angina, Heart Failure, CVA/TIA, Deep Vein Thrombosis (DVT), Eye Disorder, GERD/Reflux, Hyperlipidemia, Hypertension, Myocardial Infarction ([place]), Osteoarthritis (OA), Pneumonia, Syncope, Thyroid Disorder, Vascular Disorder Additional Past Medical History / Comment(s): Pt hx afib,. 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 DVTs multiple in R leg and once in L arm, PEs- showering pulmonary embolisms bilateral lungs, chronic thrombophlebitis, coronary blockages, leaky cardiac valves, AAA thoracic and abdominal both stented, duodenal ulcer, hiatal hernia, diverticular dx, colitis, IBS, H. Pylori, frequent diarrhea, chronic anemia, bronchitis, pneumonias, macular degeneration bilaterally, syncopal episodes. Last Myocardial Infarction Date:: UNKNOWN History of Any Multi-Drug Resistant Organisms: None Reported Past Surgical History: Appendectomy, Cholecystectomy, Heart Catheterization, Hysterectomy Additional Past Surgical History / Comment(s): 09/2015 thoracic aortic aneurysm stent, 07/2017 thoracic aortic aneurysm stent leaking and another stent placed as well as abdominal aortic aneurysm stented, cardiac caths, green field filter, bone marrow aspiration, exploratory lap for adhesions, EGD/colonoscopies with benign polypectomy, hemorrhoidectomy, R leg vein stripping. Past Anesthesia/Blood Transfusion Reactions: Blood Transfusion Reaction Additional Past Anesthesia/Blood Transfusion Reaction / Comment(s): Heart fail ure/fluid overload Past Psychological History: No Psychological Hx Reported Smoking Status: Never smoker, Unknown if ever smoked Past Alcohol Use History: None Reported Past Drug Use History: None Reported - Past Family History Father Family Medical History: Coronary Artery Disease (CAD), Myocardial Infarction ([place]) Mother Family Medical History: COPD, Coronary Artery Disease (CAD), Deep Vein Thrombosis (DVT) Brother(s) Family Medical History: Coronary Artery Disease (CAD), Myocardial Infarction ([place]) Sister(s) Family Medical History: Cancer Additional Family Medical History / Comment(s): Uterine General Exam - General Exam Comments Initial Comments: Elderly female in no distress at the time I'm seeing her. No focal neurologic deficits. Cranial nerves II through XII intact. Limitations: no limitations General appearance: alert, in no apparent distress Head exam: Present: atraumatic, normocephalic, normal inspection Eye exam: Present: normal appearance, PERRL, EOMI. Absent: scleral icterus, conjunctival injection, periorbital swelling ENT exam: Present: normal exam, mucous membranes moist Neck exam: Present: normal inspection. Absent: tenderness, meningismus, lymphadenopathy Respiratory exam: Present: normal lung sounds bilaterally. Absent: respiratory distress, wheezes, rales, rhonchi, stridor Cardiovascular Exam: Present: regular rate, normal rhythm, normal heart sounds. Absent: systolic murmur, diastolic murmur, rubs, gallop, clicks GI/Abdominal exam: Present: soft, normal bowel sounds. Absent: distended, tenderness, guarding, rebound, rigid Extremities exam: Present: normal inspection, full ROM, normal capillary refill. Absent: tenderness, pedal edema, joint swelling, calf tenderness Back exam: Present: normal inspection Neurological exam: Present: alert, oriented X3, CN II-XII intact Psychiatric exam: Present: normal affect, normal mood Skin exam: Present: warm, dry, intact, normal color. Absent: rash Course Vital Signs 09/21/21 09/21/21 09/21/21 11:29 12:34 15:13 Temperature 98.0 F Pulse Rate 62 71 73 Respiratory 18 18 18 Rate Blood Pressure 115/56 111/76 125/60 O2 Sat by Pulse 96 100 98 Oximetry - Reevaluation(s) Reevaluation #1: 09/21/21 13:55 Patient reevaluated, patient was tested for stable gait. Patient unable to ambulate on her own. Medical Decision Making - Medical Decision Making Patient presents after what sounds a mechanical fall. However the patient has had multiple" over the past few days. Patient had unsteady gait on reevaluation here. Discussed the case with the on-call hospitalist physician, Dr. torres. Patient will be admitted for likely rehabilitation placement. - Lab Data Result diagrams: 09/21/21 12:09 09/21/21 12:09 Lab Results 09/21/21 09/21/21 09/21/21 Range/Units 12:09 12:09 12:09 WBC 1.7 L (3.8-10.6) k/uL RBC 2.96 L (3.80-5.40) m/uL Hgb 10.3 L (11.4-16.0) gm/dL Hct 30.8 L (34.0-46.0) % MCV 103.8 H (80.0-100.0) fL MCH 34.9 (25.0-35.0) pg MCHC 33.6 (31.0-37.0) g/dL RDW 16.0 H (11.5-15.5) % Plt Count 23 L (150-450) k/uL MPV 11.1 Neutrophils % (Manual) 5 % Lymphocytes % (Manual) 58 % Monocytes % (Manual) 24 % Eosinophils % (Manual) 3 % Blast Cells % 10 H* % Neutrophils # TIE [employer]ER Neutrophils # (Manual) 0.09 L* (1.3-7.7) k/uL Lymphocytes # (Manual) 0.99 L (1.0-4.8) k/uL Monocytes # (Manual) 0.41 (0-1.0) k/uL Eosinophils # (Manual) 0.05 (0-0.7) k/uL Blast Cells # (Man) 0.17 H (0) k/uL Nucleated RBCs 0 (0-0) /100 WBC Manual Slide Review Performed Poikilocytosis (manual Present Anisocytosis Slight Macrocytosis Moderate Sodium 137 (137-145) mmol/L Potassium 4.8 (3.5-5.1) mmol/L Chloride 103 (98-107) mmol/L Carbon Dioxide 27 (22-30) mmol/L Anion Gap 7 mmol/L BUN 50 H (7-17) mg/dL Creatinine 1.36 H (0.52-1.04) mg/dL Est GFR (CKD-EPI)AfAm 41 (>60 ml/min/1.73 sqM) Est GFR (CKD-EPI)NonAf 35 (>60 ml/min/1.73 sqM) Glucose 96 (74-99) mg/dL Calcium 10.4 H (8.4-10.2) mg/dL Troponin I 0.015 (0.000-0.034) ng/mL - Radiology Data Radiology results: report reviewed, image reviewed Disposition Clinical Impression: Fall, Debilitated patient, Multiple falls, Gait disturbance Disposition: ADMITTED IP TO THIS [facility] Time of Disposition: 14:43
--- NOTE | 2021-09-21 12:24 | CT ---
EXAMINATION TYPE: CT brain [place] DATE OF EXAM: 09/21/2021 COMPARISON: 02/26/2021 HISTORY: Fall, head injury, clotting disorder CT DLP: 1331.5 mGycm Automated exposure control for dose reduction was used. TECHNIQUE: CT scan of the head and cervical spine are performed without contrast. FINDINGS: There is generalized degenerative change of the greater frontal lobe component. Nonspecif ic low attenuation in the white matter is most typical of remote ischemia. No acute hemorrhage or mas s effect. Orbits are symmetric. Changes of mild chronic sinusitis. Right-sided chronic mastoiditis. Calvarium i ntact. Craniocervical junction maintained. Partially empty sella turcica. Hypodensity within the basa l ganglia suggest remote lacunar infarct. A multilevel moderate to severe degenerative disc disease with posterior spondylosis. Suspect some mu ltilevel foraminal encroachment and canal stenosis. Recommend follow-up MRI. Assessment spinal canal limited due to resolution and artifact. If concern for disc herniation correlate with MRI. Previous thoracic aorta surgery suggested correlate clinically for prior aneurysm or dissection. Athe rosclerotic change of the vasculature. IMPRESSION: 1. Multilevel degenerative disc disease and facet arthropathy. No acute fracture. Recommend follow-up MRI to assess for canal stenosis and foraminal encroachment. 2 degenerative and remote ischemic giles ge. 3. Postsurgical change involving the thoracic aorta as discussed above.
[2021-09-21 12:37] LABS: Anisocytosis Slight; HCT 30.8 % (34.0-46.0); HGB 10.3 gm/dL (11.4-16.0); MCH 34.9 pg (25.0-35.0); MCHC 33.6 g/dL (31.0-37.0); MCV 103.8 fL (80.0-100.0); Macrocytosis Moderate; Mean Platelet Volume 11.1; RBC 2.96 m/uL (3.80-5.40); WBC 1.7 k/uL (3.8-10.6)
[2021-09-21 12:50] LABS: Calcium 10.4 mg/dL (8.4-10.2); Potassium 4.8 mmol/L (3.5-5.1)
[2021-09-21 12:58] LABS: Platelet Count 23 k/uL (150-450)
--- NOTE | 2021-09-21 13:15 | XR ---
EXAMINATION TYPE: XR chest 1V DATE OF EXAM: 09/21/2021 COMPARISON: 09/12/2021 HISTORY: Fall with pain TECHNIQUE: Single frontal view of the chest is obtained. FINDINGS: There is no focal air space opacity, pleural effusion, or pneumothorax seen. The cardiac silhouette size is within normal limits. The osseous structures are intact. Thoracic aortic aneurys m stent placement again noted. Diffuse osteopenia with arthropathy of the shoulders. Pleural thickeni ng along the lateral right lung field with questionable chronic rib appearing deformities. Correlate with point tenderness. IMPRESSION: No acute process.
[2021-09-21 13:28] LABS: Blast Cells # (M) 0.17 k/uL (0); Eosinophils # (M) 0.05 k/uL (0-0.7); Lymphocytes # (M) 0.99 k/uL (1.0-4.8); Monocytes # (M) 0.41 k/uL (0-1.0); Neutrophils % (M) 5 %; Nucleated Red Blood Cells 0 /100 WBC (0-0); Total Cells Counted 100
[2021-09-21 13:29] LABS: Poikilocytosis (M) Present
[2021-09-21 13:32] LABS: Neutrophils # (M) 0.09 k/uL (1.3-7.7)
[2021-09-21] MEDS ORDERED: ACETAMINOPHEN TAB 325 MG TAB PO PRN (14:45)
[2021-09-21] MEDS ORDERED: MELATONIN 3 MG TABLET PO PRN (14:45)
[2021-09-21] MEDS ORDERED: MAG HYDROX/AL HYDROX/SIMETH 30 ML CUP PO PRN (14:45)
[2021-09-21] MEDS ORDERED: DOCUSATE 100 MG CAP PO PRN (14:45)
[2021-09-21] MEDS ORDERED: ONDANSETRON 4 MG/2 ML VIAL IVP PRN (14:45)
[2021-09-21] MEDS ORDERED: LOPERAMIDE 2 MG CAP PO PRN (17:55)
[2021-09-21] MEDS ORDERED: MELATONIN 5 MG TABLET PO PRN (17:55)
[2021-09-21 18:34] LABS: Appearance,Urine Clear (Clear); Bilirubin,Urine Negative (Negative); Blood,Urine Negative (Negative); Color,Urine Yellow; Glucose,Urine (UA) Negative (Negative); Ketones,Urine Negative (Negative); Leukocyte Esterase,Urine Negative (Negative); Nitrite,Urine Negative (Negative); Protein,Urine Negative (Negative); Specific Gravity,Urine 1.015 (1.001-1.035); Urobilinogen,Urine <2.0 mg/dL (<2.0)
[2021-09-21] MEDS: ALBUTEROL NEBULIZED 2.5 MG/3 ML INHALATION SCH (19:37)
[2021-09-21] MEDS: hydrALAZINE HCL 10 MG TAB PO SCH ×2 (21:03→21:08)
[2021-09-21] MEDS: AMITRIPTYLINE HCL 10 MG TAB PO SCH ×2 (21:03→21:08)
[2021-09-21] MEDS: TRIAMCINOLONE 0.1% CREAM 80 GM TUBE TOPICAL SCH (21:05)
[2021-09-21] MEDS: CEFDINIR 300 MG CAP PO SCH (21:11)
[2021-09-22] MEDS: LEVOTHYROXINE 100 MCG TAB PO SCH (06:04)
[2021-09-22 06:52] LABS: MCHC 32.1 g/dL (31.0-37.0); MCV 105.9 fL (80.0-100.0); Macrocytosis Moderate; Mean Platelet Volume 10.8; RBC 2.93 m/uL (3.80-5.40); RDW 15.9 % (11.5-15.5)
[2021-09-22] MEDS ORDERED: CINACALCET 30 MG TAB PO SCH (07:00)
[2021-09-22 07:17] LABS: Platelet Count 22 k/uL (150-450)
[2021-09-22] MEDS: ALBUTEROL NEBULIZED 2.5 MG/3 ML INHALATION SCH (08:07)
[2021-09-22] MEDS: TRIAMCINOLONE 0.1% CREAM 80 GM TUBE TOPICAL SCH ×2 (08:19→20:43)
[2021-09-22] MEDS: METOPROLOL SUCCINATE (ER) 100 MG TAB.ER.24H PO SCH (08:20)
[2021-09-22] MEDS: CEFDINIR 300 MG CAP PO SCH (08:20)
[2021-09-22] MEDS: hydrALAZINE HCL 10 MG TAB PO SCH ×2 (08:20→20:43)
[2021-09-22] MEDS: ISOSORBIDE MONONITRATE ER 60 MG TAB.ER.24H PO SCH (08:20)
[2021-09-22] MEDS: amLODIPine 10 MG TAB PO SCH (08:20)
[2021-09-22] MEDS: CYANOCOBALAMIN 500 MCG TAB PO SCH (08:20)
[2021-09-22] MEDS: ATORVASTATIN 20 MG TAB PO SCH (08:20)
[2021-09-22] MEDS: lisinopriL 10 MG TAB PO SCH (08:20)
[2021-09-22] MEDS: SODIUM BICARBONATE TAB 650 MG TAB PO SCH (08:21)
[2021-09-22 08:28] LABS: Eosinophils # (M) 0.06 k/uL (0-0.7); Lymphocytes # (M) 1.46 k/uL (1.0-4.8); Monocytes # (M) 0.32 k/uL (0-1.0); Neutrophils # (M) 0.02 k/uL (1.3-7.7); Neutrophils % (M) 1 %
[2021-09-22 08:29] LABS: Blast Cells # (M) 0.14 k/uL (0); Nucleated Red Blood Cells 0 /100 WBC (0-0); Total Cells Counted 100
[2021-09-22 08:31] LABS: Poikilocytosis (M) Present
[2021-09-22 09:20] LABS: African American GFR (CKD) 47.4 (60.0-200.0); Albumin 3.8 g/dL (3.8-4.9); Albumin/Globulin Ratio 1.23 (1.60-3.17); Anion Gap 10.1 mmol/L (10.00-18.00); BUN/Creat Ratio 36.25 Ratio (12.00-20.00); Blood Urea Nitrogen 43.5 mg/dL (9.0-27.0); Calcium 10.3 mg/dL (8.7-10.3); Carbon Dioxide 24.9 mmol/L (20.0-27.5); Globulin 3.1 g/dL (1.6-3.3); Magnesium 1.9 mg/dL (1.5-2.4); Non-African American GFR(CKD) 40.9 (60.0-200.0); Potassium 4.5 mmol/L (3.5-5.5); Total Bilirubin 0.6 mg/dL (0.30-1.20); Total Protein 6.9 g/dL (6.2-8.2)
[2021-09-22] MEDS ORDERED: ALBUTEROL NEBULIZED 2.5 MG/3 ML INHALATION PRN (10:25)
--- NOTE | 2021-09-22 14:56 | P.CONS ---
History of Present Illness - Reason for Consult Consult date: 09/22/21 pancytopenia, MDS Requesting physician: Petros E Sheet - Chief Complaint fall - History of Present Illness Ms. Aragon is a long standing pt of Dr. Coleman. She was referred to Hem/Onc for progressive macrocytic anemia. BM BX and asp 08/2016 that revealed MDS with 5q del, she was started on Revlimid and was on until about 01/2018-progressive diarrhea. Was evaluated by GI, conservative treatment resolved issue. 01/22 pt had CVA, rt sided weakness, slurred speech. Known AAA, repaired 2015. On life- time anticoagulation with Coumadin due to recurrent DVT/PEs, had prior IVC filter, was worked up in 2005, no hypercoagulable state was identified. 01/21 admitted to [facility] with LLE proximal DVT, on Coumadin. Pt admitted last month for cellulitis, petechiae/purpura and toes numb/ice cold/painful. She was treated for cellulitis, septicemia, UTI, was seen by Vascular with no arterial concerns. Her legs are clearing up, she has some sensation, the feet are warm to touch, no severe pain. She was discharged home 6 days ago. She fell and was brought in for evaluation because of her low counts. She denies fever, nausea, vomiting, chest pain, she did cough up some sputum with a faint streak of pink in it once earlier this week, none since, no other bleeding to report. She has mild nausea today, feeling a little anxious. Her counts remain low since her discharge. Review of Systems 10 point ROS is neg except as stated in HPI Past Medical History Past Medical History: Atrial Fibrillation, Blood Disorder, Coronary Artery Disease (CAD), Cancer, Chest Pain / Angina, Heart Failure, CVA/TIA, Deep Vein Thrombosis (DVT), Eye Disorder, GERD/Reflux, Hyperlipidemia, Hypertension, Myocardial Infarction ([place]), Osteoarthritis (OA), Pneumonia, Syncope, Thyroid Disorder, Vascular Disorder Additional Past Medical History / Comment(s): Pt hx afib, MDS diagnosed in 2015, took revlimid in past. DVTs multiple in R leg and once in L arm, PEs-showering pulmonary embolisms bilateral lungs, chronic thrombophlebitis, coronary blockages, leaky cardiac valves, AAA thoracic and abdominal both stented, duodenal ulcer, hiatal hernia, diverticular dx, colitis, IBS, H. Pylori, frequent diarrhea, chronic anemia, bronchitis, pneumonias, macular degeneration bilaterally, syncopal episodes. Last Myocardial Infarction Date:: UNKNOWN History of Any Multi-Drug Resistant Organisms: None Reported Past Surgical History: Appendectomy, Cholecystectomy, Heart Catheterization, Hysterectomy Additional Past Surgical History / Comment(s): 09/2015 thoracic aortic aneurysm stent, 07/2017 thoracic aortic aneurysm stent leaking and another stent placed as well as abdominal aortic aneurysm stented, cardiac caths, green field filter, bone marrow aspiration, exploratory lap for adhesions, EGD/colonoscopies with benign polypectomy, hemorrhoidectomy, R leg vein stripping. Past Anesthesia/Blood Transfusion Reactions: Blood Transfusion Reaction Additional Past Anesthesia/Blood Transfusion Reaction / Comm: Heart failure/fluid overload Past Psychological History: Anxiety (self reported) Smoking Status: Never smoker, Unknown if ever smoked Past Alcohol Use History: None Reported Past Drug Use History: None Reported - Past Family History Father Family Medical History: Coronary Artery Disease (CAD), Myocardial Infarction ([place]) Mother Family Medical History: COPD, Coronary Artery Disease (CAD), Deep Vein Thrombosis (DVT) Brother(s) Family Medical History: Coronary Artery Disease (CAD), Myocardial Infarction ([place]) Sister(s) Family Medical History: Cancer Additional Family Medical History / Comment(s): Uterine Medications and Allergies Home Medications Medication Instructions Recorded Confirmed Type Metoprolol Succinate [Toprol XL] 100 mg PO DAILY 09/10/16 09/21/21 History Isosorbide Mononitrate ER [Imdur] 60 mg PO DAILY 09/28/19 09/21/21 History Melatonin 5 mg PO HS PRN 09/28/19 09/21/21 History rOPINIRole HCL [Requip] 0.25 mg PO HS 09/28/19 09/21/21 History Cinacalcet [Sensipar] 30 mg PO MOFR@0700 02/16/21 09/21/21 History Ergocalciferol (Vitamin D2) 1,250 mcg PO Q30D 02/16/21 09/21/21 History [Drisdol (50,000 Iu)] Loperamide [Imodium] 2 mg PO TID PRN 02/16/21 09/21/21 History Atorvastatin Calcium [Lipitor] 20 mg PO DAILY 03/02/21 09/21/21 History Albuterol Inhaler [Ventolin Hfa 2 puff INHALATION RT-QID #8 gm 08/20/21 09/21/21 Rx Inhaler] Cyanocobalamin [Vitamin B-12] 1,000 mcg PO DAILY #30 tab 08/20/21 09/21/21 Rx amLODIPine [Norvasc] 10 mg PO DAILY #60 tab 08/20/21 09/21/21 Rx Amitriptyline HCl [Elavil] 10 mg PO HS 09/12/21 09/21/21 History Triamcinolone 0.1% Cream [Kenalog 1 applic TOPICAL BID 09/12/21 09/21/21 History 0.1% Cream] Cefuroxime Axetil [Ceftin] 500 mg PO BID 10 Days #20 tab 09/16/21 09/21/21 Rx Levothyroxine Sodium [Synthroid] 100 mcg PO DAILY 09/21/21 09/21/21 History Lisinopril [Prinivil] 10 mg PO DAILY 09/21/21 09/21/21 History Sodium Bicarbonate Tab 650 mg PO DAILY 09/21/21 09/21/21 History hydrALAZINE HCL [Apresoline] 10 mg PO DIRECTED 09/21/21 09/21/21 History Allergies Allergy/AdvReac Type Severity Reaction Status Date / Time black pepper Allergy Severe Anaphylaxis Verified 09/21/21 14:20 Influenza Virus Vaccines Allergy Severe Unknown Verified 09/21/21 14:20 peanut Allergy Severe Anaphylaxis Verified 09/21/21 14:20 prednisone Allergy Severe Dyspnea Verified 09/21/21 14:20 atropine [From ] Allergy Unknown Verified 09/21/21 14:20 chocolate flavor Allergy Itching Verified 09/21/21 14:20 hyoscyamine [From ] Allergy Unknown Verified 09/21/21 14:20 Iodinated Contrast Media Allergy Swelling Verified 09/21/21 14:20 [Iodinated Contrast Media - IV Dye] phenobarbital [From ] Allergy Unknown Verified 09/21/21 14:20 propoxyphene [From [place]] Allergy Unknown Verified 09/21/21 14:20 scopolamine [From ] Allergy Unknown Verified 09/21/21 14:20 Sulfa (Sulfonamide Allergy Rash/Hives Verified 01/16/22 14:20 Antibiotics) venom-honey bee Allergy Unknown Verified 09/21/21 14:20 [bee venom (honey bee)] acetaminophen [From [place]] AdvReac Hallucinati Verified 09/21/21 14:20 ons belladonna alkaloids AdvReac Unknown Verified 09/21/21 14:20 hydrocodone [From [place]] AdvReac Hallucinati Verified 09/21/21 14:20 ons simvastatin [From Zocor] AdvReac WEAKNESS Verified 09/21/21 14:20 SMELT Allergy Itching Uncoded 09/21/21 11:34 Physical Exam Vitals: Vital Signs Temp Pulse Pulse Resp BP BP Pulse Ox 09/22/21 11:39 97.7 F 71 16 96/61 97 09/22/21 08:23 72 146/69 09/22/21 08:18 80 09/22/21 08:07 80 09/22/21 08:00 71 09/22/21 05:02 98 F 82 16 168/66 99 09/21/21 20:00 98 F 67 16 132/61 98 09/21/21 19:49 79 09/21/21 19:41 82 09/21/21 16:53 98.2 F 79 18 135/64 98 09/21/21 16:33 98.0 F 73 18 125/60 98 09/21/21 15:13 73 18 125/60 98 Intake and Output 09/21/21 09/22/21 09/22/21 22:59 06:59 14:59 Intake Total 600 Balance 600 Intake: Oral 600 Other: Voiding Method Toilet Toilet # Voids 1 3 Weight 68.039 kg - Constitutional General appearance: average body habitus, cooperative, no acute distress - EENT Eyes: anicteric sclerae, EOMI ENT: hearing grossly normal - Neck Neck: no lymphadenopathy - Respiratory Respiratory: bilateral: CTA - Cardiovascular Heart sounds: normal: S1, S2 Abnormal Heart Sounds: systolic murmur - Gastrointestinal General gastrointestinal: no absent bowel sounds, no decreased bowel sounds, no distended, no hepatomegaly, no hyperactive bowel sounds, normal bowel sounds, no organomegaly, no rigid, no scaphoid, soft, no splenomegaly, tenderness, no umbilical hernia, no ventral hernia Localized gastrointestinal: tender: LUQ - Integumentary BLE petechiae, purpura healing, ends of all toes non-blanchable rubor. The skin is warm and dry - Neurologic Neurologic: CNII-XII intact - Musculoskeletal Musculoskeletal: generalized weakness - Psychiatric Psychiatric: A&O x's 3, appropriate affect, intact judgment & insight Results CBC & Chem 7: 09/22/21 06:17 09/22/21 06:17 Labs: Abnormal Lab Results - Last 24 Hours (Table) 09/22/21 09/22/21 Range/Units 06:17 06:17 WBC 2.0 L (3.8-10.6) k/uL RBC 2.93 L (3.80-5.40) m/uL Hgb 10.0 L (11.4-16.0) gm/dL Hct 31.0 L (34.0-46.0) % MCV 105.9 H (80.0-100.0) fL RDW 15.9 H (11.5-15.5) % Plt Count 22 L (150-450) k/uL Blast Cells % 7 H* % Neutrophils # (Manual) 0.02 L* (1.3-7.7) k/uL Blast Cells # (Man) 0.14 H (0) k/uL BUN 43.5 H (9.0-27.0) mg/dL Est GFR (CKD-EPI)AfAm 47.4 L (60.0-200.0) Est GFR (CKD-EPI)NonAf 40.9 L (60.0-200.0) BUN/Creatinine Ratio 36.25 H (12.00-20.00) Ratio Albumin/Globulin Ratio 1.23 L (1.60-3.17) g/dL Chest x-ray: report reviewed (no acute process) CT Scan - head: report reviewed (without contrast, no acute bleeding noted) Assessment and Plan (1) Myelodysplastic syndrome Narrative/Plan: Pt was previously on Revlimid, she has been off since 2018. Pancytopenia persists after spesis/UTI. Transfuse for Hgb <6.5 (nationwide shortage), plt < 10,000. No GCSF use in MDS pt. Pt appt with Dr. Coleman will be moved up so she can be re-evaluated for her persistent low counts-not certain if still low from recovery from recent illness or if MDS Current Visit: Yes Status: Chronic Priority: High Code(s): D46.9 - MYELODYSPLASTIC SYNDROME, UNSPECIFIED SNOMED Code(s): 055164312 (2) Debilitated patient Narrative/Plan: S/P prolonged hospital stay for sepsis. Pt is agreeable to rehab and this has been encouraged Current Visit: Yes Status: Acute Priority: High Code(s): R53.81 - OTHER MALAISE SNOMED Code(s): 38140210 (3) Fall Narrative/Plan: No acute bleeding suspected with stable Hgb, no unusual bruising, CT without neg. Current Visit: Yes Status: Acute Priority: High Code(s): W19.XXXA - UNSPECIFIED FALL, INITIAL ENCOUNTER SNOMED Code(s): 5616034
[2021-09-22] MEDS: AMITRIPTYLINE HCL 10 MG TAB PO SCH (20:43)
--- NOTE | 2021-09-22 20:46 | P.HPIM ---
History of Present Illness This is a pleasant 86 years old female with multiple medical problems including atrial fibrillation, Bicytopenia with leukopenia and thrombocytopenia, coronary artery disease, heart failure, myelodysplastic syndrome, CVA/TIA, the venous thrombosis, GERD, hyperlipidemia, hypertension, osteoarthritis, syncope. He was recently discharged from the hospital secondary to right leg swelling, E. coli and Streptococcus bacteremia and UTI and leukopenia and thrombocytopenia. Presents with recurrent falls. Last time patient recommended to go to rehab by physical therapy for severe weakness and right leg infection however patient was refusing this recommendation and abdomen to go home regard to extensive advice and recommendations. Presents with losing balance while walking using her walker, she fell and struck her head on the chair without loss of consciousness I discussed the case extensively with the patient as well as with her daughter Richie and [facility] and patient is considering it for now. Vitals looks stable and patient is afebrile. Patient has leukopenia at 1.7 which is a stable from last time. T hrombocytopenia 20 3K which is similar to last time she was discharged from hospital at 30k, neutropenia at 0.09. Creatinine at baseline of 1.3, baseline 1.2-1.5 Urine analysis is no suspicious of infection. Coronavirus not detected EKG showing atrial fibrillation's with competing junctional pacemaker. QTC 478. No significant ST-T changes. Chest x-ray: No acute process. CT of the brain: No acute process. CT of the cervical spine multilevel degenerative disc disease and facet arthropathy. No acute fracture. Recommended follow-up MRI to assess for Stenosis and Foraminal Encroachment. In the emergency room she received 500 mL bolus of normal saline Review of Systems CONSTITUTIONAL: No fever, no malaise, no fatigue. HEENT: No recent visual problems or hearing problems. Denied any sore throat. CARDIOVASCULAR: No orthopnea, PND, no palpitations, no syncope. PULMONARY: No shortness of breath, no cough, no hemoptysis. GASTROINTESTINAL: No diarrhea, no nausea, no vomiting, no abdominal pain. Normoactive bowel sounds. NEUROLOGICAL: No headaches, no weakness, no numbness. HEMATOLOGICAL: Denies any bleeding or petechiae. GENITOURINARY: Denies any burning micturition, frequency, or urgency. MUSCULOSKELETAL/RHEUMATOLOGICAL: Denies any joint pain, swelling, or any muscle pain. ENDOCRINE: Denies any polyuria or polydipsia. Past Medical History Past Medical History: Atrial Fibrillation, Blood Disorder, Coronary Artery Disease (CAD), Chest Pain / Angina, Heart Failure, CVA/TIA, Deep Vein Thrombosis (DVT), Eye Disorder, GERD/Reflux, Hyperlipidemia, Hypertension, Myocardial Infarction ([place]), Osteoarthritis (OA), Pneumonia, Syncope, Thyroid Disorder, Vascular Disorder Additional Past Medical History / Comment(s): Pt hx afib,. 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 DVTs multiple in R leg and once in L arm, PEs- showering pulmonary embolisms bilateral lungs, chronic thrombophlebitis, coronary blockages, leaky cardiac valves, AAA thoracic and abdominal both stented, duodenal ulcer, hiatal hernia, diverticular dx, colitis, IBS, H. Pylori, frequent diarrhea, chronic anemia, bronchitis, pneumonias, macular degeneration bilaterally, syncopal episodes. Last Myocardial Infarction Date:: UNKNOWN History of Any Multi-Drug Resistant Organisms: None Reported Past Surgical History: Appendectomy, Cholecystectomy, Heart Catheterization, Hysterectomy Additional Past Surgical History / Comment(s): 09/2015 thoracic aortic aneurysm stent, 07/2017 thoracic aortic aneurysm stent leaking and another stent placed as well as abdominal aortic aneurysm stented, cardiac caths, green field filter, bone marrow aspiration, exploratory lap for adhesions, EGD/colonoscopies with benign polypectomy, hemorrhoidectomy, R leg vein stripping. Past Anesthesia/Blood Transfusion Reactions: Blood Transfusion Reaction Additional Past Anesthesia/Blood Transfusion Reaction / Comment(s): Heart failure/fluid overload Smoking Status: Never smoker, Unknown if ever smoked - Past Family History Father Family Medical History: Coronary Artery Disease (CAD), Myocardial Infarction ([place]) Mother Family Medical History: COPD, Coronary Artery Disease (CAD), Deep Vein Thrombosis (DVT) Brother(s) Family Medical History: Coronary Artery Disease (CAD), Myocardial Infarction ([place]) Sister(s) Family Medical History: Cancer Additional Family Medical History / Comment(s): Uterine Medications and Allergies Home Medications Medication Instructions Recorded Confirmed Type Metoprolol Succinate [Toprol XL] 100 mg PO DAILY 09/10/16 09/21/21 History Isosorbide Mononitrate ER [Imdur] 60 mg PO DAILY 09/28/19 09/21/21 History Melatonin 5 mg PO HS PRN 09/28/19 09/21/21 History rOPINIRole HCL [Requip] 0.25 mg PO HS 09/28/19 09/21/21 History Cinacalcet [Sensipar] 30 mg PO MOFR@0700 02/16/21 09/21/21 History Ergocalciferol (Vitamin D2) 1,250 mcg PO Q30D 02/16/21 09/21/21 History [Drisdol (50,000 Iu)] Loperamide [Imodium] 2 mg PO TID PRN 02/16/21 09/21/21 History Atorvastatin Calcium [Lipitor] 20 mg PO DAILY 03/02/21 09/21/21 History Albuterol Inhaler [Ventolin Hfa 2 puff INHALATION RT-QID #8 gm 08/20/21 09/21/21 Rx Inhaler] Cyanocobalamin [Vitamin B-12] 1,000 mcg PO DAILY #30 tab 08/20/21 09/21/21 Rx amLODIPine [Norvasc] 10 mg PO DAILY #60 tab 08/20/21 09/21/21 Rx Amitriptyline HCl [Elavil] 10 mg PO HS 09/12/21 09/21/21 History Triamcinolone 0.1% Cream [Kenalog 1 applic TOPICAL BID 09/12/21 09/21/21 History 0.1% Cream] Cefuroxime Axetil [Ceftin] 500 mg PO BID 10 Days #20 tab 09/16/21 09/21/21 Rx Levothyroxine Sodium [Synthroid] 100 mcg PO DAILY 09/21/21 09/21/21 History Lisinopril [Prinivil] 10 mg PO DAILY 09/21/21 09/21/21 History Sodium Bicarbonate Tab 650 mg PO DAILY 09/21/21 09/21/21 History hydrALAZINE HCL [Apresoline] 10 mg PO DIRECTED 09/21/21 09/21/21 History Allergies Allergy/AdvReac Type Severity Reaction Status Date / Time black pepper Allergy Severe Anaphylaxis Verified 09/21/21 14:20 Influenza Virus Vaccines Allergy Severe Unknown Verified 09/21/21 14:20 peanut Allergy Severe Anaphylaxis Verified 09/21/21 14:20 prednisone Allergy Severe Dyspnea Verified 09/21/21 14:20 atropine [From ] Allergy Unknown Verified 09/21/21 14:20 chocolate flavor Allergy Itching Verified 09/21/21 14:20 hyoscyamine [From ] Allergy Unknown Verified 09/21/21 14:20 Iodinated Contrast Media Allergy Swelling Verified 09/21/21 14:20 [Iodinated Contrast Media - IV Dye] phenobarbital [From ] Allergy Unknown Verified 09/21/21 14:20 propoxyphene [From Darvon] Allergy Unknown Verified 09/21/21 14:20 scopolamine [From ] Allergy Unknown Verified 09/21/21 14:20 Sulfa (Sulfonamide Allergy Rash/Hives Verified 09/21/21 14:20 Antibiotics) venom-honey bee Allergy Unknown Verified 09/21/21 14:20 [bee venom (honey bee)] acetaminophen [From [place]] AdvReac Hallucinati Verified 09/21/21 14:20 ons belladonna alkaloids AdvReac Unknown Verified 09/21/21 14:20 hydrocodone [From [place]] AdvReac Hallucinati Verified 09/21/21 14:20 ons simvastatin [From Zocor] AdvReac WEAKNESS Verified 09/21/21 14:20 SMELT Allergy Itching Uncoded 09/21/21 11:34 Physical Exam Vitals: Vital Signs Temp Pulse Pulse Resp BP BP Pulse Ox 09/22/21 05:02 98 F 82 16 168/66 99 09/21/21 20:00 98 F 67 16 132/61 98 09/21/21 19:49 79 09/21/21 19:41 82 09/21/21 16:53 98.2 F 79 18 135/64 98 09/21/21 16:33 98.0 F 73 18 125/60 98 09/21/21 15:13 73 18 125/60 98 09/21/21 12:34 71 18 111/76 100 09/21/21 11:29 98.0 F 62 18 115/56 96 Intake and Output 09/21/21 09/22/21 09/22/21 22:59 06:59 14:59 Intake Total 600 Balance 600 Intake: Oral 600 Other: Voiding Method Toilet # Voids 1 3 Weight 68.039 kg GENERAL: The patient is alert and oriented x3, not in any acute distress. Well developed, well nourished. HEENT: Pupils are round and equally reacting to light. EOMI. No scleral icterus. No conjunctival pallor. Normocephalic, atraumatic. No pharyngeal erythema. No thyromegaly. CARDIOVASCULAR: S1 and S2 present. No murmurs, rubs, or gallops. PULMONARY: Chest is clear to auscultation, no wheezing or crackles. ABDOMEN: Soft, nontender, nondistended, normoactive bowel sounds. No palpable organomegaly. MUSCULOSKELETAL: No joint swelling or deformity. EXTREMITIES: No cyanosis, clubbing, or pedal edema. NEUROLOGICAL: Gross neurological examination did not reveal any focal deficits. SKIN: No rashes. No petechiae Results CBC & Chem 7: 09/22/21 06:17 09/22/21 06:17 Labs: Abnormal Lab Results - Last 24 Hours (Table) 09/21/21 09/21/21 Range/Units 12:09 12:09 WBC 1.7 L (3.8-10.6) k/uL RBC 2.96 L (3.80-5.40) m/uL Hgb 10.3 L (11.4-16.0) gm/dL Hct 30.8 L (34.0-46.0) % MCV 103.8 H (80.0-100.0) fL RDW 16.0 H (11.5-15.5) % Plt Count 23 L (150-450) k/uL Blast Cells % 10 H* % Neutrophils # (Manual) 0.09 L* (1.3-7.7) k/uL Lymphocytes # (Manual) 0.99 L (1.0-4.8) k/uL Blast Cells # (Man) 0.17 H (0) k/uL BUN 50 H (7-17) mg/dL Creatinine 1.36 H (0.52-1.04) mg/dL Calcium 10.4 H (8.4-10.2) mg/dL Thrombosis Risk Factor Assmnt - Choose All That Apply Each Factor Represents 1 point: Obesity (BMI >25) Each Risk Factor Represents 3 Points: Age 75 years or older, History of DVT/PE Thrombosis Risk Factor Assessment Total Risk Factor Score: 7 Thrombosis Risk Factor Assessment Level: High Risk Assessment and Plan Assessment: Right leg swelling and tenderness, possible cellulitis, rule out right leg ischemia Bacteremia with E. coli and Streptococcus species Cervical spine multilevel degenerative disc disease Leukopenia and thrombocytopenia, mostly secondary to myelodysplastic syndrome Acute kidney injury on top of chronic kidney disease, stage III History of acute urinary tract infection secondary to gram-negative bacilli, completely treated History of DVT Hypothyroidism Cardiomyopathy with ejection fraction of 40-45% History of thoracic aortic aneurysm stent, With focal fusiform aneurysmal dilatation around 7.6 cm seen on a previous x-ray Plan: This is a pleasant 86 years old female with multiple problems presents with fall Continue gentle hydration Continue with neuro check Physical therapy evaluation Labs and medication were reviewed.. Continue same treatment. Continue with symptomatic treatment. Resume home medication. Monitor lytes and vitals. DVT and GI prophylaxis. Further recommendations depends on the clinical course of the patient DVT prophylaxis: Subcutaneous heparin GI Prophylaxis: Pepcid PT/OT: Pending Prognosis is guarded
[2021-09-22] MEDS ORDERED: FAMOTIDINE 20 MG/2 ML VIAL IV SCH (21:00)
--- NOTE | 2021-09-23 05:42 | P.CONS ---
History of Present Illness - Chief Complaint Walking difficulty and history of falls - History of Present Illness I had the opportunity to see patient for inpatient rehab consultation with her to walking difficulty and history of fall and hitting had. Patient admitted September 21 with same history. Was seen by hematology/oncology for myelodysplastic syndrome. Chest x-ray negative. CT C-spine with DDD and thoracic aortic surgical change. Head CT with sinusitis. PT reports supervision to minimal assistance for bed mobility and minimal assistance for transfer and gait 20 feet with roller walker. OT prescribed. Previous functional history as elicited from patient: 86-year-old right-handed white female who is lives in one floor home alone. Retired. Describes independent with own cooking, laundry, sitdown shower and gait with roller walker. Daughter or granddaughter's to the driving. PCP Dr. De La Rosa. Denies tobacco or alcohol. Review of Systems Review of systems: ENT: Denies sneezes or discharge. Eyes: Denies discharge or photophobia. Cardiac: Denies chest pain or palpitation. Pulmonary: Denies cough or shortness of breath. Breast: Denies discharge or lumps. Gastrointestinal: Denies nausea, emesis, constipation, diarrhea. Genitourinary: Denies discharge or frequency. Musculoskeletal: Denies muscle or bone aches. Neurologic: Unsteadiness of gait. Endocrine: Denies shakes or sweats. Oncology: Denies cancers. Dermatologic: Denies rash, itching, pruritus. ALLERGY/immunology: Denies sneezes, rashes. Past Medical History Past Medical History: Atrial Fibrillation, Blood Disorder, Coronary Artery Disease (CAD), Chest Pain / Angina, Heart Failure, CVA/TIA, Deep Vein Thrombosis (DVT), Eye Disorder, GERD/Reflux, Hyperlipidemia, Hypertension, Myocardial Infarction ([place]), Osteoarthritis (OA), Pneumonia, Syncope, Thyroid Disorder, Vascular Disorder Additional Past Medical History / Comment(s): Pt hx afib,. 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 DVTs multiple in R leg and once in L arm, PEs- showering pulmonary embolisms bilateral lungs, chronic thrombophlebitis, coronary blockages, leaky cardiac valves, AAA thoracic and abdominal both stented, duodenal ulcer, hiatal hernia, diverticular dx, colitis, IBS, H. Pylori, frequent diarrhea, chronic anemia, bronchitis, pneumonias, macular degeneration bilaterally, syncopal episodes. Last Myocardial Infarction Date:: UNKNOWN History of Any Multi-Drug Resistant Organisms: None Reported Past Surgical History: Appendectomy, Cholecystectomy, Heart Catheterization, Hysterectomy Additional Past Surgical History / Comment(s): 09/2015 thoracic aortic aneurysm stent, 07/2017 thoracic aortic aneurysm stent leaking and another stent placed as well as abdominal aortic aneurysm stented, cardiac caths, green field filter, bone marrow aspiration, exploratory lap for adhesions, EGD/colonoscopies with benign polypectomy, hemorrhoidectomy, R leg vein stripping. Past Anesthesia/Blood Transfusion Reactions: Blood Transfusion Reaction Additional Past Anesthesia/Blood Transfusion Reaction / Comm: Heart failure/fluid overload Smoking Status: Never smoker, Unknown if ever smoked - Past Family History Father Family Medical History: Coronary Artery Disease (CAD), Myocardial Infarction ([place]) Mother Family Medical History: COPD, Coronary Artery Disease (CAD), Deep Vein Throm bosis (DVT) Brother(s) Family Medical History: Coronary Artery Disease (CAD), Myocardial Infarction ([place]) Sister(s) Family Medical History: Cancer Additional Family Medical History / Comment(s): Uterine Medications and Allergies Home Medications Medication Instructions Recorded Confirmed Type Metoprolol Succinate [Toprol XL] 100 mg PO DAILY 09/10/16 09/21/21 History Isosorbide Mononitrate ER [Imdur] 60 mg PO DAILY 09/28/19 09/21/21 History Melatonin 5 mg PO HS PRN 09/28/19 09/21/21 History rOPINIRole HCL [Requip] 0.25 mg PO HS 09/28/19 09/21/21 History Cinacalcet [Sensipar] 30 mg PO MOFR@0700 02/16/21 09/21/21 History Ergocalciferol (Vitamin D2) 1,250 mcg PO Q30D 02/16/21 09/21/21 History [Drisdol (50,000 Iu)] Loperamide [Imodium] 2 mg PO TID PRN 02/16/21 09/21/21 History Atorvastatin Calcium [Lipitor] 20 mg PO DAILY 03/02/21 09/21/21 History Albuterol Inhaler [Ventolin Hfa 2 puff INHALATION RT-QID #8 gm 08/20/21 09/21/21 Rx Inhaler] Cyanocobalamin [Vitamin B-12] 1,000 mcg PO DAILY #30 tab 08/20/21 09/21/21 Rx amLODIPine [Norvasc] 10 mg PO DAILY #60 tab 08/20/21 09/21/21 Rx Amitriptyline HCl [Elavil] 10 mg PO HS 09/12/21 09/21/21 History Triamcinolone 0.1% Cream [Kenalog 1 applic TOPICAL BID 09/12/21 09/21/21 History 0.1% Cream] Cefuroxime Axetil [Ceftin] 500 mg PO BID 10 Days #20 tab 09/16/21 09/21/21 Rx Levothyroxine Sodium [Synthroid] 100 mcg PO DAILY 09/21/21 09/21/21 History Lisinopril [Prinivil] 10 mg PO DAILY 09/21/21 09/21/21 History Sodium Bicarbonate Tab 650 mg PO DAILY 09/21/21 09/21/21 History hydrALAZINE HCL [Apresoline] 10 mg PO DIRECTED 09/21/21 09/21/21 History Allergies Allergy/AdvReac Type Severity Reaction Status Date / Time black pepper Allergy Severe Anaphylaxis Verified 09/21/21 14:20 Influenza Virus Vaccines Allergy Severe Unknown Verified 09/21/21 14:20 peanut Allergy Severe Anaphylaxis Verified 09/21/21 14:20 prednisone Allergy Severe Dyspnea Verified 09/21/21 14:20 atropine [From ] Allergy Unknown Verified 09/21/21 14:20 chocolate flavor Allergy Itching Verified 09/21/21 14:20 hyoscyamine [From ] Allergy Unknown Verified 09/21/21 14:20 Iodinated Contrast Media Allergy Swelling Verified 09/21/21 14:20 [Iodinated Contrast Media - IV Dye] phenobarbital [From ] Allergy Unknown Verified 09/21/21 14:20 propoxyphene [From [place]] Allergy Unknown Verified 09/21/21 14:20 scopolamine [From ] Allergy Unknown Verified 09/21/21 14:20 Sulfa (Sulfonamide Allergy Rash/Hives Verified 09/21/21 14:20 Antibiotics) venom-honey bee Allergy Unknown Verified 09/21/21 14:20 [bee venom (honey bee)] acetaminophen [From [place]] AdvReac Hallucinati Verified 09/21/21 14:20 ons belladonna alkaloids AdvReac Unknown Verified 09/21/21 14:20 hydrocodone [From [place]] AdvReac Hallucinati Verified 09/21/21 14:20 ons simvastatin [From Zocor] AdvReac WEAKNESS Verified 09/21/21 14:20 SMELT Allergy Itching Uncoded 09/21/21 11:34 Physical Exam Vitals: Vital Signs Temp Pulse Pulse Resp BP Pulse Ox 09/22/21 19:44 97.7 F 72 16 124/64 97 09/22/21 14:45 96 09/22/21 11:39 97.7 F 71 16 96/61 97 09/22/21 08:23 72 146/69 09/22/21 08:18 80 09/22/21 08:07 80 09/22/21 08:00 71 Intake and Output 09/22/21 09/22/21 09/23/21 14:59 22:59 06:59 Intake Total 600 Balance 600 Intake: Oral 600 Other: Voiding Method Toilet Toilet # Voids 2 Skin: Atrophic, intact. General: Medium build and comfortable appearance. Head: Normocephalic, atraumatic. Eyes: Symmetric. Pupils equal round. Ears: Symmetric. Hearing within normal limits. Mouth: Clear. Neck: Supple. Carotid without bruit. Cardiac: Regular rate and rhythm. Lungs: Clear anteriorly and posteriorly. Abdomen: Soft active nontender. Extremities: Normal tone. Neurological: Mental status: Alert, cooperative, pleasant. Cranial nerves: Symmetric facial tone and trapezius. Motor: Active movement all 4 limbs greater than antigravity and with apparent normal isolation. Sensation: Intact throughout. DTRs: Symmetric and equal throughout. Mobility: Patient reports hands-on assistance for mobility in room including to bathroom. Results CBC & Chem 7: 09/22/21 06:17 09/22/21 06:17 Labs: Abnormal Lab Results - Last 24 Hours (Table) 09/22/21 09/22/21 Range/Units 06:17 06:17 WBC 2.0 L (3.8-10.6) k/uL RBC 2.93 L (3.80-5.40) m/uL Hgb 10.0 L (11.4-16.0) gm/dL Hct 31.0 L (34.0-46.0) % MCV 105.9 H (80.0-100.0) fL RDW 15.9 H (11.5-15.5) % Plt Count 22 L (150-450) k/uL Blast Cells % 7 H* % Neutrophils # (Manual) 0.02 L* (1.3-7.7) k/uL Blast Cells # (Man) 0.14 H (0) k/uL BUN 43.5 H (9.0-27.0) mg/dL Est GFR (CKD-EPI)AfAm 47.4 L (60.0-200.0) Est GFR (CKD-EPI)NonAf 40.9 L (60.0-200.0) BUN/Creatinine Ratio 36.25 H (12.00-20.00) Ratio Albumin/Globulin Ratio 1.23 L (1.60-3.17) g/dL Assessment and Plan (1) Debilitated patient Current Visit: Yes Status: Acute Priority: High Code(s): R53.81 - OTHER [place] SNOMED Code(s): 74147381 (2) Fall Current Visit: Yes Status: Acute Priority: High Code(s): W19.XXXA - UNSPECIFIED FALL, INITIAL ENCOUNTER SNOMED Code(s): 7985049 (3) Myelodysplastic syndrome Current Visit: Yes Status: Chronic Priority: High Code(s): D46.9 - MYELODYSPLASTIC SYNDROME, UNSPECIFIED SNOMED Code(s): 098802361 Plan: Comments and plan: At this time PT ongoing. Overweight OT note. Will require OT note for inpatient rehab. Patient already anticipating transfer for full inpatient rehab.
[2021-09-23 05:58] VITALS: RESP 18
[2021-09-23] MEDS: ISOSORBIDE MONONITRATE ER 60 MG TAB.ER.24H PO SCH (08:22)
[2021-09-23] MEDS: hydrALAZINE HCL 10 MG TAB PO SCH (08:23)
[2021-09-23] MEDS: CYANOCOBALAMIN 500 MCG TAB PO SCH (08:23)
[2021-09-23] MEDS: SODIUM BICARBONATE TAB 650 MG TAB PO SCH (08:23)
[2021-09-23] MEDS: LEVOTHYROXINE 100 MCG TAB PO SCH (08:23)
[2021-09-23] MEDS: ATORVASTATIN 20 MG TAB PO SCH (08:23)
[2021-09-23] MEDS: METOPROLOL SUCCINATE (ER) 100 MG TAB.ER.24H PO SCH (08:23)
[2021-09-23] MEDS: amLODIPine 10 MG TAB PO SCH (08:23)
[2021-09-23] MEDS: lisinopriL 10 MG TAB PO SCH (08:23)
[2021-09-23] MEDS: TRIAMCINOLONE 0.1% CREAM 80 GM TUBE TOPICAL SCH (08:26)
[2021-09-23] MEDS ORDERED: FAMOTIDINE 20 MG/2 ML VIAL IV SCH (09:00)
[2021-09-23] MEDS ORDERED: CEFDINIR 300 MG CAP PO SCH (09:00)
--- NOTE | 2021-09-23 11:18 | P.DS ---
Providers Date of admission: 09/21/21 13:50 Attending physician: Petros Lynch MD Consults: 09/22/21 10:22 Consult Physician Urgent Consulting Provider: Armando Maddox Consult Reason/Comments: LOW PLATELET Do you want consulting provider notified?: Yes 09/22/21 11:29 Consult Physician Routine Consulting Provider: Eladio Borrero Consult Reason/Comments: [facility] Do you want consulting provider notified?: Yes Primary care physician: Rahul Peralta Hospital Course: Diagnoses: Right leg swelling and tenderness, possible cellulitis, rule out right leg ischemia Bacteremia with E. coli and Streptococcus species Cervical spine multilevel degenerative disc disease Leukopenia and thrombocytopenia, mostly secondary to myelodysplastic syndrome Acute kidney injury on top of chronic kidney disease, stage III History of acute urinary tract infection secondary to gram-negative bacilli, completely treated History of DVT Hypothyroidism Cardiomyopathy with ejection fraction of 40-45% History of thoracic aortic aneurysm stent, With focal fusiform aneurysmal dilatation around 7.6 cm seen on a previous x-ray Hospital course: This is a pleasant 86 years old female with multiple medical problems including atrial fibrillation, Bicytopenia with leukopenia and thrombocytopenia secondary to her MDS disease, coronary artery disease, heart failure, myelodysplastic syndrome, CVA/TIA, the venous thrombosis, GERD, hyperlipidemia, hypertension, osteoarthritis, syncope. She was recently discharged from the hospital secondary to right leg swelling, E. coli and Streptococcus bacteremia and UTI and leukopenia and thrombocytopenia. Presents with recurrent falls. Last time patient recommended to go to rehab by physical therapy for severe weakness and right leg infection however patient was refusing this recommendation and was adamant to go home AGAINST MEDICAL ADVICE. Presents with losing balance while walking using her walker, she fell and struck her head on the chair without loss of consciousness I discussed the case extensively with the patient as well as with her daughter Richie and rehab [facility] encourage and patient is considering it for now. Attention able to go to inpatient rehab. Patient was recently discharged from the hospital on 09/16/2021 with recommendation for 10 days of Ceftin for her right leg infection, currently she is on cefdinir and she can continue for 4 more days. Her right leg cellulitis almost disappeared. Vitals looks stable and patient is afebrile. Patient has leukopenia at 1.7 which is a stable from last time. Thrombocytopenia 23K which is similar to last time she was discharged from hospital at 30k, neutropenia at 0.09. Creatinine at baseline of 1.3, baseline 1.2-1.5 Urine analysis is no suspicious of infection. Coronavirus not detected EKG showing atrial fibrillation's with competing junctional pacemaker. QTC 478. No significant ST-T changes. Chest x-ray: No acute process. CT of the brain: No acute process. CT of the cervical spine multilevel degenerative disc disease and facet arthropathy. No acute fracture. Recommended follow-up MRI to assess for Stenosis and Foraminal Encroachment. Patient also evaluated by monorail helper who cleared her for discharge Problems and management plan were discussed with the patient and he verbalized understanding and acceptance Patient was found stable and can be discharged to inpatient rehab in guarded prognosis however he needs follow-up as an outpatient. Patient was instructed to follow up with PCP Dr. De La Rosa within one week and patient agrees Patient also was instructed to follow up with her monorail helper office follow-up in 2-3 weeks And her vascular surgeon and referred for her aortic aneurysm as a scheduled Physical exam Gen: patient is a AAOx3, no distress. Generally weak CVS: S1-S2, RRR, no murmur Lungs: B/L CTA, no wheezing Abdomen: soft, no distention, no tenderness, positive bowel sounds Extremity: no leg edema or induration Time spent more than 35 minutes Patient Condition at Discharge: Fair Plan - Discharge Summary Discharge Rx Participant: No New Discharge Prescriptions: Continue Metoprolol Succinate [Toprol XL] 100 mg PO DAILY Isosorbide Mononitrate ER [Imdur] 60 mg PO DAILY Melatonin 5 mg PO HS PRN PRN Reason: Insomnia rOPINIRole HCL [Requip] 0.25 mg PO HS Loperamide [Imodium] 2 mg PO TID PRN PRN Reason: Diarrhea Ergocalciferol (Vitamin D2) [Drisdol (50,000 Iu)] 1,250 mcg PO Q30D Atorvastatin Calcium [Lipitor] 20 mg PO DAILY amLODIPine [Norvasc] 10 mg PO DAILY #60 tab Albuterol Inhaler [Ventolin Hfa Inhaler] 2 puff INHALATION RT-QID #8 gm Amitriptyline HCl [Elavil] 10 mg PO HS Cinacalcet [Sensipar] 30 mg PO MOFR@0700 Cyanocobalamin [Vitamin B-12] 1,000 mcg PO DAILY #30 tab Triamcinolone 0.1% Cream [Kenalog 0.1% Cream] 1 applic TOPICAL BID Cefuroxime Axetil [Ceftin] 500 mg PO BID 10 Days #20 tab hydrALAZINE HCL [Apresoline] 10 mg PO DIRECTED Levothyroxine Sodium [Synthroid] 100 mcg PO DAILY Lisinopril [Prinivil] 10 mg PO DAILY Sodium Bicarbonate Tab 650 mg PO DAILY Discharge Medication List Metoprolol Succinate [Toprol XL] 100 mg PO DAILY 09/10/16 [History] Isosorbide Mononitrate ER [Imdur] 60 mg PO DAILY 09/28/19 [History] Melatonin 5 mg PO HS PRN 09/28/19 [History] rOPINIRole HCL [Requip] 0.25 mg PO HS 09/28/19 [History] Cinacalcet [Sensipar] 30 mg PO MOFR@0700 02/16/21 [History] Ergocalciferol (Vitamin D2) [Drisdol (50,000 Iu)] 1,250 mcg PO Q30D 02/16/21 [History] Loperamide [Imodium] 2 mg PO TID PRN 02/16/21 [History] Atorvastatin Calcium [Lipitor] 20 mg PO DAILY 03/02/21 [History] Albuterol Inhaler [Ventolin Hfa Inhaler] 2 puff INHALATION RT-QID #8 gm 08/20/21 [Rx] Cyanocobalamin [Vitamin B-12] 1,000 mcg PO DAILY #30 tab 08/20/21 [Rx] amLODIPine [Norvasc] 10 mg PO DAILY #60 tab 08/20/21 [Rx] Amitriptyline HCl [Elavil] 10 mg PO HS 09/12/21 [History] Triamcinolone 0.1% Cream [Kenalog 0.1% Cream] 1 applic TOPICAL BID 09/12/21 [History] Cefuroxime Axetil [Ceftin] 500 mg PO BID 10 Days #20 tab 09/16/21 [Rx] Levothyroxine Sodium [Synthroid] 100 mcg PO DAILY 09/21/21 [History] Lisinopril [Prinivil] 10 mg PO DAILY 09/21/21 [History] Sodium Bicarbonate Tab 650 mg PO DAILY 09/21/21 [History] hydrALAZINE HCL [Apresoline] 10 mg PO DIRECTED 09/21/21 [History] Follow up Appointment(s)/Referral(s): Fabian Kay MD [Primary Care Provider] - 09/29/21 9:00 am [facility] [NON-STAFF] - 1 Week Pradip Coleman MD [STAFF PHYSICIAN] - 11/14/21 8:00 am [facility], [NON-STAFF] - 1 Week Activity/Diet/Wound Care/Special Instructions: heart healthy diet activity is restricted till you see your doctor please be advised you are at high risk of falling and at high risk of bleeding because of your severely low platelet count Discharge Disposition: HOME WITH HOME HEALTH SERVICES
[2021-09-23 11:42] VITALS: BP 96/58; PULSE 70; TEMP 98
--- NOTE | 2021-09-23 14:30 | P.PN ---
Subjective Progress Note Date: 09/23/21 Principal diagnosis: fall In f/u pt is doing ok, she is going to inpt rehab. Denies fever, nausea, bleeding. Objective - Vital Signs Vital signs: Vital Signs Temp 98.0 F 09/23/21 11:22 Pulse 70 09/23/21 11:22 Resp 18 09/23/21 11:22 BP 96/58 09/23/21 11:22 Pulse Ox 99 09/23/21 11:22 Intake & Output 09/22/21 09/23/21 09/23/21 18:59 06:59 18:59 Intake Total 600 Balance 600 Intake: Oral 600 Other: Voiding Method Toilet Toilet Toilet # Voids 2 1 - Constitutional General appearance: Present: average body habitus, cooperative, no acute distress - EENT Eyes: Present: anicteric sclerae, edentulous ENT: Present: hearing grossly normal - Respiratory Respiratory: bilateral: CTA - Cardiovascular Rhythm: regular Heart sounds: normal: S1, S2 - Peripheral edema foot Peripheral Edema: bilateral: Trace - Gastrointestinal General gastrointestinal: Present: normal bowel sounds, soft - Neurologic Neurologic: Present: CNII-XII intact - Musculoskeletal Musculoskeletal: Present: generalized weakness - Psychiatric Psychiatric: Present: A&O x's 3, appropriate affect, intact judgment & insight - Labs CBC & Chem 7: 09/22/21 06:17 09/22/21 06:17 Assessment and Plan (1) Myelodysplastic syndrome Narrative/Plan: Pt was previously on Revlimid, she has been off since 2018. Pancytopenia persists after sepsis/UTI. Transfuse for Hgb <6.5 (nationwide shortage), plt < 10,000. No GCSF use in MDS pt. Pt appt with Dr. Coleman will be moved up to early Oct so she can be re- evaluated for her persistent low counts-not certain if still low from recovery from recent illness or if MDS. Anticipate completion of rehab by then. Labs while in rehab. Current Visit: Yes Status: Chronic Priority: High Code(s): D46.9 - MYELODYSPLASTIC SYNDROME, UNSPECIFIED SNOMED Code(s): 391794881 (2) Debilitated patient Narrative/Plan: S/P prolonged hospital stay for sepsis. Pt is agreeable to rehab and this has been encouraged. Pt seen by PT/OT and Dr. Borrero, plan is for inpt rehab Current Visit: Yes Status: Acute Priority: High Code(s): R53.81 - OTHER MALAISE SNOMED Code(s): 07753445 (3) Fall Narrative/Plan: No acute bleeding suspected with stable Hgb, no unusual bruising, CT without con trast was neg. To rehab for gait and strength training Current Visit: Yes Status: Acute Priority: High Code(s): W19.XXXA - UNSPECIFIED FALL, INITIAL ENCOUNTER SNOMED Code(s): 9392864 Plan: Dr. Maddox discussed case with Attending Doctor attests: I performed a history and physical examination of this patient, developed imp ression and plan of care, discussed with dictator. I agree with dictators note, documented as a scribe.
[2021-10-06] MEDS ORDERED: ERGOCALCIFEROL 1,250 MCG (50,000 IU) CAPSULE PO SCH (09:00)
== END 2021-09-23 15:13 | disposition home health service (06) | DRG 603 ==
LOC: EC 11:25 → 5NMEDONC 13:50
PROVIDERS: ADMIT Internal Medicine; ATTEND Internal Medicine
DX: L03.115 Cellulitis of right lower limb (principal); I13.0 Hypertensive heart and chronic kidney disease with heart failure and stage 1 through stage 4 chronic kidney disease, or unspecified chronic kidney disease; N17.9 Acute kidney failure, unspecified; D61.818 Other pancytopenia; I42.9 Cardiomyopathy, unspecified; R78.81 Bacteremia; R53.81 Other malaise; R26.9 Unspecified abnormalities of gait and mobility; Z20.822 Contact with and (suspected) exposure to COVID-19; D46.9 Myelodysplastic syndrome, unspecified; E03.9 Hypothyroidism, unspecified; E78.5 Hyperlipidemia, unspecified; I25.10 Atherosclerotic heart disease of native coronary artery without angina pectoris; N18.30 Chronic kidney disease, stage 3 unspecified; K21.9 Gastro-esophageal reflux disease without esophagitis; M50.30 Other cervical disc degeneration, unspecified cervical region; R29.6 Repeated falls; M47.819 Spondylosis without myelopathy or radiculopathy, site unspecified; I71.4 Abdominal aortic aneurysm, without rupture; W18.30XA Fall on same level, unspecified, initial encounter; B95.5 Unspecified streptococcus as the cause of diseases classified elsewhere; B96.20 Unspecified Escherichia coli [E. coli] as the cause of diseases classified elsewhere; D53.9 Nutritional anemia, unspecified; I50.9 Heart failure, unspecified; I48.91 Unspecified atrial fibrillation; M19.90 Unspecified osteoarthritis, unspecified site; Z86.19 Personal history of other infectious and parasitic diseases; I25.2 Old myocardial infarction; Z87.440 Personal history of urinary (tract) infections; Z86.718 Personal history of other venous thrombosis and embolism; Z86.711 Personal history of pulmonary embolism; Z86.73 Personal history of transient ischemic attack (TIA), and cerebral infarction without residual deficits; Z87.11 Personal history of peptic ulcer disease; Z90.710 Acquired absence of both cervix and uterus; Z91.81 History of falling; Z90.49 Acquired absence of other specified parts of digestive tract; Z95.828 Presence of other vascular implants and grafts; Z79.890 Hormone replacement therapy; Z79.899 Other long term (current) drug therapy; Z86.010 Personal history of colon polyps; Z88.2 Allergy status to sulfonamides; Z88.8 Allergy status to other drugs, medicaments and biological substances; Z91.030 Bee allergy status; Z91.041 Radiographic dye allergy status; Z91.010 Allergy to peanuts; Z88.7 Allergy status to serum and vaccine; Z82.49 Family history of ischemic heart disease and other diseases of the circulatory system; Z82.5 Family history of asthma and other chronic lower respiratory diseases
CPT/HCPCS: 36415; 70450; 71045; 72125; 80048; 80053; 81003; 83735; 84484; 85025; 87635; 93005; 94640; 96360; 99285